=== PATIENT | male | born 1965 | race Caucasian/White ===

== ENCOUNTER → 2016-03-14 | Outpatient (CLI) | payer MEDICARE, OTHER ==
[2016-03-14 14:04] VITALS: BP 100/68; PULSE 59; RESP 14; TEMP 97.4; BMI 39.2
--- NOTE | 2016-03-14 16:40 | P.HPBAR ---
Bariatric H&P - History & Physicial H&P Date: 03/14/16 History & Physicial: Visit/CC: bariatric consult Patient initial contact: Initial weight: 122.924 kg Initial weight in pounds: 271.00 Height: 5 ft 9.75 in Initial BMI: 39.2 Last weight: Current weight: 122.924 kg Current weight in pounds: 271.00 Current BMI: 39.2 [place] body weight (based on NIH guidelines): 74.616 kg Excess body weight loss: 0.0% The patient is a 50 year-old M who presents for Bariatric Assessment. The patient presents today for sleeve gastrectomy consult. He has had lifetime problems obesity. His BMI is 39. The patient has been an information seminar and has a good understanding of the sleeve gastrectomy. 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 Last Myocardial Infarction Date:: 01-22-2011 History of Any Multi-Drug Resistant Organisms: None Reported Past Surgical History: Adenoidectomy, Cholecystectomy, Coronary Bypass/CABG, Heart Catheterization, Heart Catheterization With Stent, Hernia Repair Additional Past Surgical History / Comment(s): Several caths with last one done 07/02/14 treated medically, total 4 stents (states placed 01/2011), CABG 5 vessel in 2008 (stents came after open heart was done), EGD/colonoscopy, hemorrhoid banding, possible pain injections lower back-pt unsure. Past Anesthesia/Blood Transfusion Reactions: Previous Problems w/ Anesthesia Additional Past Anesthesia/Blood Transfusion Reaction / Comm: stated "wakes up slower than normal" Date of Last Stent Placement:: 01-22-2011 Past Psychological History: No Psychological Hx Reported Additional Psychological History / Comment(s): Pt states he has no current mental health disease. He states he had suicidal thoughts yrs ago at age 43, immediately following CABG in 2008 due to drastic lifestyle changes and being told he could no longer work. was admitted to psych but no longer has depression or thoughts of suicide sought counseling and is no longer having such thoughts. He resides with family. He is independent. 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 Smoking Status: Light tobacco smoker Past Alcohol Use History: Occasional Additional Past Alcohol Use History / Comment(s): started smoking age 15 never more than 1/2 ppd and later in life took up cigars (one per week at most). quit in oct 2012. may have a drink AND CIGAR once a week or less. Past Drug Use History: Marijuana Additional Drug Use History / Comment(s): as teenager into occ smoked marijuana NOW seldom - Past Family History Father Family Medical History: Coronary Artery Disease (CAD) Additional Family Medical History / Comment(s): dad is 75. stents, bypass, prostate and lung cancer. Mother Additional Family Medical History / Comment(s): mom 1997 at age 59- brain aneurysm Surgical - Exam Vital Signs Temp Pulse Resp BP 97.4 F L 59 L 14 100/68 03/14/16 13:55 03/14/16 13:55 03/14/16 13:55 03/14/16 13:55 - General well developed, no distress - Eyes PERRL - ENT normal pinna - Neck no masses - Respiratory normal expansion - Cardiovascular Rhythm: regular - Abdomen Abdomen: soft, non tender Bariatric Assessment & Plan Plan: Morbid obesity with severe companies. Patient wishes to undergo sleeve gastrectomy. Atelectasis patient regarding the risks and benefits of procedure he is aware the risk of gastric staple line disruption, bleeding, perforation. The patient will be scheduled for EGD. We will attempt authorizing for sleeve gastrectomy. Bariatric Checklist Checklist: Plan: Checklist: EGD: 1. Hiatal hernia: 2. H. Pylori: HgbA1c: Vitamin D: Smoking: Light tobacco smoker Primary care physician referral: beata Psychiatry clearance: Cardiology clearance: Sleep study: Diet journal: VTE risk score: VTE risk level: Rehab needs at discharge:
== END | disposition home or self-care (01) ==
LOC: BARWHC3 12:05
PROVIDERS: ATTEND Surgery
DX: Z01.818 Encounter for other preprocedural examination (principal); E66.01 Morbid (severe) obesity due to excess calories; Z68.39 Body mass index [BMI] 39.0-39.9, adult; F17.200 Nicotine dependence, unspecified, uncomplicated; F12.90 Cannabis use, unspecified, uncomplicated
CPT/HCPCS: 99201

== ENCOUNTER 2016-06-04 22:28 | Observation (INO) | payer MEDICARE, OTHER ==
[2016-06-04] MEDS ORDERED: ASPIRIN 81 MG CHEW PO STA (22:58)
[2016-06-04] MEDS ORDERED: NITROGLYCERIN SL TABS 0.4 MG TAB SUBLINGUAL STA ×3 (22:58)
--- NOTE | 2016-06-04 23:01 | ED ---
General Adult HPI - General Chief complaint: Chest Pain Stated complaint: Chest Pain/HX Heart Pt Time Seen by Provider: 06/04/16 22:40 Source: patient, RN notes reviewed Mode of arrival: wheelchair Limitations: no limitations - History of Present Illness Initial comments: Patient is a pleasant 50-year-old male presenting to the emergency department complaining of chest discomfort. Onset was an hour ago. Discomfort is currently 6/10. Discomfort is pressure with radiation to left shoulder. There is some associated dyspnea. Patient also has some nausea. No diaphoresis. Patient has had similar symptoms associated with previous heart attack. - Related Data Home Medications Medication Instructions Recorded Confirmed Atorvastatin [Lipitor] 80 mg PO HS 06/25/13 06/04/16 HYDROcodone/APAP 10-325MG [[place] 1 tab PO Q6H PRN 06/25/13 06/04/16 10-325] Metoprolol Tartrate [Lopressor] 50 mg PO BID 06/25/13 06/04/16 Nitroglycerin Sl Tabs [Nitrostat] 0.4 mg SUBLINGUAL Q5M PRN 06/25/13 06/04/16 Multivitamin [Men's Multi-Vitamin] 1 tab PO DAILY 09/23/13 06/04/16 Ranolazine [Ranexa] 1,000 mg PO BID 09/23/13 06/04/16 Pantoprazole Sodium [Protonix] 40 mg PO BID 07/02/14 06/04/16 Spironolactone [Aldactone] 25 mg PO DAILY 06/19/15 06/04/16 Isosorbide Mononitrate ER [Imdur] 120 mg PO BID 10/13/15 06/04/16 Aspirin [Adult Low Dose Aspirin EC] 81 mg PO HS 01/11/16 06/04/16 Enalapril [Vasotec] 20 mg PO BID 01/11/16 06/04/16 Allergies Allergy/AdvReac Type Severity Reaction Status Date / Time chocolate flavor Allergy Rash/Hives Verified 06/04/16 22:37 [place] And Derivatives Allergy Rash/Hives Verified 06/04/16 22:37 [[place]] Review of Systems ROS Statement: Those systems with pertinent positive or pertinent negative responses have been documented in the HPI. ROS Other: All systems not noted in ROS Statement are negative. Constitutional: Denies: fever Eyes: Denies: eye pain ENT: Denies: ear pain Respiratory: Reports: dyspnea. 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 Last Myocardial Infarction Date:: 01-22-2011 History of Any Multi-Drug Resistant Organisms: None Reported Past Surgical History: Adenoidectomy, Cholecystectomy, Coronary Bypass/CABG, Heart Catheterization, Heart Catheterization With Stent, Hernia Repair Additional Past Surgical History / Comment(s): Several caths with last one done 07/02/14 treated medically, total 4 stents (states placed 01/2011), CABG 5 vessel in 2008 (stents came after open heart was done), EGD/colonoscopy, hemorrhoid banding, possible pain injections lower back-pt unsure. Past Anesthesia/Blood Transfusion Reactions: Previous Problems w/ Anesthesia Additional Past Anesthesia/Blood Transfusion Reaction / Comment(s): stated "wakes up slower than normal" Date of Last Stent Placement:: 01-22-2011 Past Psychological History: No Psychological Hx Reported Additional Psychological History / Comment(s): Pt states he has no current mental health disease. He states he had suicidal thoughts yrs ago at age 43, immediately following CABG in 2008 due to drastic lifestyle changes and being told he could no longer work. was admitted to psych but no longer has depression or thoughts of suicide sought counseling and is no longer having such thoughts. He resides with family. He is independent. 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 Smoking Status: Former smoker Past Alcohol Use History: Occasional Additional Past Alcohol Use History / Comment(s): started smoking age 15 never more than 1/2 ppd and later in life took up cigars (one per week at most). quit in oct 2012. may have a drink AND CIGAR once a week or less. Past Drug Use History: Marijuana Additional Drug Use History / Comment(s): as teenager into 20's occ smoked marijuana NOW seldom - Past Family History Father Family Medical History: Coronary Artery Disease (CAD) Additional Family Medical History / Comment(s): dad is 75. stents, bypass, prostate and lung cancer. Mother Additional Family Medical History / Comment(s): mom 1997 at age 59- brain aneurysm General Exam Limitations: no limitations General appearance: alert, in no apparent distress Head exam: Present: atraumatic Eye exam: Present: normal appearance, PERRL ENT exam: Present: normal oropharynx Neck exam: Present: normal inspection Respiratory exam: Present: normal lung sounds bilaterally. Absent: chest wall tenderness Cardiovascular Exam: Present: regular rate, normal rhythm Expanded Peripheral pulses: 2+: Radial (R), Radial (L), Dorsalis Pedis (R), Dorsalis Pedis (L) GI/Abdominal exam: Present: soft. Absent: tenderness Extremities exam: Present: normal inspection. Absent: pedal edema, calf tenderness Neurological exam: Present: alert Psychiatric exam: Present: normal affect, normal mood Skin exam: Absent: rash Course Vital Signs 06/04/16 06/04/16 22:35 23:59 Temperature 97.9 F Pulse Rate 75 72 Respiratory 18 16 Rate Blood Pressure 120/71 109/62 O2 Sat by Pulse 98 97 Oximetry - Reevaluation(s) Reevaluation #1: 06/04/16 23:02 Case was discussed with Dr. Beard including EKG who is familiar with this patient. He does not feel patient needs to go to [facility] at this time. Previous EKG reviewed dated 01/11/2016. EKG Findings - EKG Comments: EKG Findings:: EKG shows normal sinus rhythm at 76. MS 174. QRS 76. QT 382. QTC 429. Normal axis. Inferior Q wave. ST elevation in lead III. Borderline ST elevation in aVF. Medical Decision Making - Medical Decision Making Patient reevaluated and resting comfortably in bed. Patient updated on results and plan. Case was also discussed in detail with Dr. Gaona, who will admit for Dr. Hernández. - Lab Data Result diagrams: 06/04/16 22:55 06/04/16 22:55 Lab Results 06/04/16 06/04/16 06/04/16 Range/Units 22:55 22:55 22:55 WBC 7.0 (3.8-10.6) k/uL RBC 4.34 (4.30-5.90) m/uL Hgb 11.7 L (13.0-17.5) gm/dL Hct 36.1 L (39.0-53.0) % MCV 83.1 (80.0-100.0) fL MCH 27.0 (25.0-35.0) pg MCHC 32.4 (31.0-37.0) g/dL RDW 15.0 (11.5-15.5) % Plt Count 283 (150-450) k/uL Neutrophils % 57 % Lymphocytes % 33 % Monocytes % 5 % Eosinophils % 1 % Basophils % 0 % Neutrophils # 4.0 (1.3-7.7) k/uL Lymphocytes # 2.3 (1.0-4.8) k/uL Monocytes # 0.4 (0-1.0) k/uL Eosinophils # 0.1 (0-0.7) k/uL Basophils # 0.0 (0-0.2) k/uL Hypochromasia Slight PT (9.0-12.0) sec INR (<1.1) APTT (22.0-30.0) sec Sodium 137 (137-145) mmol/L Potassium 4.5 (3.5-5.1) mmol/L Chloride 108 H (98-107) mmol/L Carbon Dioxide 20 L (22-30) mmol/L Anion Gap 9 mmol/L BUN 20 (9-20) mg/dL Creatinine 1.50 H (0.66-1.25) mg/dL Est GFR (MDRD) Af Amer >60 (>60 ml/min/1.73 sqM) Est GFR (MDRD) Non-Af 50 (>60 ml/min/1.73 sqM) Glucose 129 H (74-99) mg/dL Calcium 9.2 (8.4-10.2) mg/dL Magnesium 1.8 (1.6-2.3) mg/dL Total Bilirubin 0.5 (0.2-1.3) mg/dL AST 19 (17-59) U/L ALT 36 (21-72) U/L Alkaline Phosphatase 64 (38-126) U/L Total Creatine Kinase 47 L (55-170) U/L CK-MB (CK-2) 0.8 (0.0-2.4) ng/mL CK-MB (CK-2) Rel Index 1.7 Troponin I <0.012 (0.000-0.034) ng/mL Total Protein 6.6 (6.3-8.2) g/dL Albumin 3.7 (3.5-5.0) g/dL 06/04/16 Range/Units 22:55 WBC (3.8-10.6) k/uL RBC (4.30-5.90) m/uL Hgb (13.0-17.5) gm/dL Hct (39.0-53.0) % MCV (80.0-100.0) fL MCH (25.0-35.0) pg MCHC (31.0-37.0) g/dL RDW (11.5-15.5) % Plt Count (150-450) k/uL Neutrophils % % Lymphocytes % % Monocytes % % Eosinophils % % Basophils % % Neutrophils # (1.3-7.7) k/uL Lymphocytes # (1.0-4.8) k/uL Monocytes # (0-1.0) k/uL Eosinophils # (0-0.7) k/uL Basophils # (0-0.2) k/uL Hypochromasia PT 10.7 (9.0-12.0) sec INR 1.1 (<1.1) APTT 22.0 (22.0-30.0) sec Sodium (137-145) mmol/L Potassium (3.5-5.1) mmol/L Chloride (98-107) mmol/L Carbon Dioxide (22-30) mmol/L Anion Gap mmol/L BUN (9-20) mg/dL Creatinine (0.66-1.25) mg/dL Est GFR (MDRD) Af Amer (>60 ml/min/1.73 sqM) Est GFR (MDRD) Non-Af (>60 ml/min/1.73 sqM) Glucose (74-99) mg/dL Calcium (8.4-10.2) mg/dL Magnesium (1.6-2.3) mg/dL Total Bilirubin (0.2-1.3) mg/dL AST (17-59) U/L ALT (21-72) U/L Alkaline Phosphatase (38-126) U/L Total Creatine Kinase (55-170) U/L CK-MB (CK-2) (0.0-2.4) ng/mL CK-MB (CK-2) Rel Index Troponin I (0.000-0.034) ng/mL Total Protein (6.3-8.2) g/dL Albumin (3.5-5.0) g/dL - Radiology Data Radiology results: image reviewed (Chest x-ray shows no acute process) Critical Care Time Critical Care Time: Yes Total Critical Care Time: 31 Disposition Clinical Impression: Unstable angina pectoris Disposition: ADMITTED IP TO THIS HOSP
[2016-06-04 23:09] LABS: Basophils % (A) 0 %; CH 26.9; CHCM 32.4; Eosinophils # (A) 0.1 k/uL (0-0.7); Eosinophils % (A) 1 %; HCT 36.1 % (39.0-53.0); HDW 3.11; HGB 11.7 gm/dL (13.0-17.5); Hypochromasia Slight; Luc # (Auto) 0.17; Luc % (Auto) 3; Lymphocytes # (A) 2.3 k/uL (1.0-4.8); Lymphocytes % (A) 33 %; MCHC 32.4 g/dL (31.0-37.0); MCV 83.1 fL (80.0-100.0); Mean Platelet Volume 6.4; Monocytes # (A) 0.4 k/uL (0-1.0); Monocytes % (A) 5 %; Neutrophils % (A) 57 %; RBC 4.34 m/uL (4.30-5.90); WBC (Perox) 6.66
[2016-06-04 23:20] LABS: INR 1.1 (<1.1); Prothrombin Time 10.7 sec (9.0-12.0)
[2016-06-04 23:21] LABS: ALT 36 U/L (21-72); AST 19 U/L (17-59); Alkaline Phosphatase 64 U/L (38-126); Anion Gap 9 mmol/L; Blood Urea Nitrogen 20 mg/dL (9-20); Calcium 9.2 mg/dL (8.4-10.2); Carbon Dioxide 20 mmol/L (22-30); Chloride 108 mmol/L (98-107); Glucose 129 mg/dL (74-99); Magnesium 1.8 mg/dL (1.6-2.3); Non-African American GFR(MDRD) 50 (>60 ml/min/1.73 sqM); Potassium 4.5 mmol/L (3.5-5.1); Sodium 137 mmol/L (137-145); Total Bilirubin 0.5 mg/dL (0.2-1.3); Total Protein 6.6 g/dL (6.3-8.2)
--- NOTE | 2016-06-04 23:28 | XR ---
EXAM: XR Chest, 1 View CLINICAL HISTORY: Reason: chest pain TECHNIQUE: Frontal view of the chest. COMPARISON: 12/22/15 two-view chest FINDINGS: Lungs: Now more shallow inspiratory effort with mild vascular crowding at the lung bases. No superimposed infiltrate. Pleural space: Unremarkable. No pneumothorax. Heart: Heart size is stable allowing for portable AP technique and lower lung volumes. Left-sided coronary artery calcification and/or stent noted. Mediastinum: Mediastinal contours are stable allowing for portable AP technique and lower lung volumes. Bones/joints: Prior median sternotomy. IMPRESSION: Slightly diminished lung volumes without new superimposed acute process is seen, as above.
[2016-06-04 23:35] LABS: Creatine Kinase 47 U/L (55-170)
[2016-06-04 23:48] LABS: Creatine Kinase MB 0.8 ng/mL (0.0-2.4); Troponin I <0.012 ng/mL (0.000-0.034)
[2016-06-05] MEDS ORDERED: HEPARIN SODIUM,PORCINE/D5W PMX 25,000 UNIT in DEXTROSE/WATER 1 500ML.BAG IV SCH (00:15)
[2016-06-05] MEDS ORDERED: HEPARIN SODIUM,PORCINE 5,000 UNIT/ML 1 ML VIAL IV PRN (00:15)
[2016-06-05] MEDS ORDERED: HEPARIN SODIUM,PORCINE 5,000 UNIT/ML 1 ML VIAL IV ONE (00:15)
[2016-06-05] MEDS ORDERED: NITROGLYCERIN SL TABS 0.4 MG TAB SUBLINGUAL PRN ×2 (00:15→14:50)
[2016-06-05 02:05] VITALS: BMI 38.5
[2016-06-05 06:12] LABS: Creatine Kinase 36 U/L (55-170)
[2016-06-05 06:25] LABS: Creatine Kinase MB 0.7 ng/mL (0.0-2.4); Troponin I <0.012 ng/mL (0.000-0.034)
[2016-06-05] MEDS ORDERED: AMINOPHYLLINE 500 MG/20 ML VIAL IV PRN (09:57)
--- NOTE | 2016-06-05 09:57 | P.CRDCN ---
History of Present Illness Consult date: 06/05/16 Chief complaint: chest pain History of present illness: this is a pleasant 50-year-old gentleman who sees Dr. Vera as an outpatient with a past medical history significant for coronary artery disease, hypertension, dyslipidemia, and obesity, presented to the hospital complaining of chest discomfort. He was in his usual state of health until last night when he was going to bed and started experiencing chest discomfort, described it as a sharp kind of discomfort, in the mid of the chest, with some radiation to the left shoulder, without any associated symptoms of shortness of breath, dizziness or lightheadedness or syncope. The EKG showed sinus rhythm with nonspecific changes in the inferior leads seems to be the same as before. The cardiac enzymes were checked and came in to be unremarkable. The patient underwent a stress test in August 2015 and that showed no evidence of ischemia noted. The last heart catheterization was performed in June2014 by Dr. Vera and that showed patent left anterior descending artery with atrophic HOPKINS to LAD and patent SVG to OM and first and second diagonal. The right coronary artery was chronically occluded and was unprotected. Maximize medical treatment was recommended at that point. I am going to DC the heparin. Then 2 obtain a stress test tomorrow morning. 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 Last Myocardial Infarction Date:: 01-22-2011 History of Any Multi-Drug Resistant Organisms: None Reported Past Surgical History: Adenoidectomy, Cholecystectomy, Coronary Bypass/CABG, Heart Catheterization, Heart Catheterization With Stent, Hernia Repair Additional Past Surgical History / Comment(s): Several caths with last one done 07/02/14 treated medically, total 4 stents (states placed 01/2011), CABG 5 vessel in 2008 (stents came after open heart was done), EGD/colonoscopy, hemorrhoid banding, possible pain injections lower back-pt unsure. Past Anesthesia/Blood Transfusion Reactions: Previous Problems w/ Anesthesia Additional Past Anesthesia/Blood Transfusion Reaction / Comment(s): stated "wakes up slower than normal" Date of Last Stent Placement:: 01-22-2011 Past Psychological History: No Psychological Hx Reported Additional Psychological History / Comment(s): Pt states he has no current mental health disease. He states he had suicidal thoughts yrs ago at age 43, immediately following CABG in 2008 due to drastic lifestyle changes and being told he could no longer work. was admitted to psych but no longer has depression or thoughts of suicide sought counseling and is no longer having such thoughts. He resides with family. He is independent. 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 Smoking Status: Former smoker Past Alcohol Use History: Occasional Additional Past Alcohol Use History / Comment(s): started smoking age 15 never more than 1/2 ppd and later in life took up cigars (one per week at most). quit in oct 2012. may have a drink AND CIGAR once a week or less. Past Drug Use History: Marijuana Additional Drug Use History / Comment(s): as teenager into occ smoked marijuana NOW seldom - Past Family History Father Family Medical History: Coronary Artery Disease (CAD) Additional Family Medical History / Comment(s): dad is 75. stents, bypass, prostate and lung cancer. Mother Additional Family Medical History / Comment(s): mom 1997 at age 59- brain aneurysm Medications and Allergies Home Medications Medication Instructions Recorded Confirmed Type Atorvastatin [Lipitor] 80 mg PO HS 06/25/13 06/05/16 History HYDROcodone/APAP 10-325MG [[place] 1 tab PO Q6H PRN 06/25/13 06/05/16 History 10-325] Metoprolol Tartrate [Lopressor] 50 mg PO BID 06/25/13 06/05/16 History Nitroglycerin Sl Tabs [Nitrostat] 0.4 mg SUBLINGUAL Q5M PRN 06/25/13 06/05/16 History Multivitamin [Men's Multi-Vitamin] 1 tab PO DAILY 09/23/13 06/05/16 History Ranolazine [Ranexa] 1,000 mg PO BID 09/23/13 06/05/16 History Pantoprazole Sodium [Protonix] 40 mg PO DAILY 07/02/14 06/05/16 History Spironolactone [Aldactone] 25 mg PO DAILY 06/19/15 06/05/16 History Isosorbide Mononitrate ER [Imdur] 120 mg PO BID 10/13/15 06/05/16 History Aspirin [Adult Low Dose Aspirin EC] 81 mg PO HS 01/11/16 06/05/16 History Enalapril [Vasotec] 20 mg PO BID 01/11/16 06/05/16 History Allergies Allergy/AdvReac Type Severity Reaction Status Date / Time chocolate flavor Allergy Rash/Hives Verified 06/04/16 22:37 [place] And Derivatives Allergy Rash/Hives Verified 06/04/16 22:37 [[place]] Physical Exam Vitals: Vital Signs Temp Pulse Pulse Resp BP BP BP 06/05/16 08:50 97.6 F 73 16 107/56 06/05/16 04:00 98.0 F 68 17 108/62 06/05/16 01:13 97.9 F 67 18 110/60 111/62 06/05/16 00:54 62 16 102/62 Pulse Ox 06/05/16 08:50 95 06/05/16 04:00 97 06/05/16 01:13 98 06/05/16 00:54 98 Intake and Output 06/04/16 06/05/16 06/05/16 22:59 06:59 14:59 Intake Total 560 355.744 Balance 560 355.744 Intake: Intake, IV Titration 80 155.744 Amount Heparin Sodium,Porcine/ 80 155.744 D5w Pmx 25,000 unit In Dextrose/Water 1 500ml. bag @ 7.88 UNITS/KG/HR 20 .01 mls/hr IV .Q24H [facility] Rx#:[id number] Oral 480 200 Other: Voiding Method Toilet Toilet # Voids 2 Weight 125.2 kg - Constitutional General appearance: no acute distress - Respiratory Respiratory: bilateral: CTA - Cardiovascular Rhythm: regular Heart sounds: normal: S1, S2 Results 06/05/16 05:39 06/04/16 22:55 Cardiac Enzymes 06/05/16 Range/Units 05:39 CK-MB (CK-2) 0.7 (0.0-2.4) ng/mL Troponin I <0.012 (0.000-0.034) ng/mL Coagulation 06/05/16 Range/Units 05:39 APTT 37.4 H (22.0-30.0) sec CBC 06/05/16 Range/Units 05:39 Plt Count 238 (150-450) k/uL Current Medications Generic Name Dose Route Start Last Admin Trade Name Kaylen PRN Reason Stop Dose Admin Aspirin 325 mg 06/06/16 09:00 Aspirin PO DAILY [facility] Heparin Sodium (Porcine) 0 unit 06/05/16 00:15 06/05/16 08:40 Heparin IV 4,000 unit Q6HR PRN Administration Low PTT Protocol Heparin Sodium/Dextrose 25,000 500 mls @ 20.01 mls/hr 06/05/16 00:15 08:37 unit/ IV Solution IV 10.9 units/kg/hr .Q24H EDWARD[facility] 27.68 mls/hr Protocol Titration 7.88 UNITS/KG/HR Nitroglycerin 0.4 mg 06/05/16 00:15 Nitrostat SUBLINGUAL Q5M PRN Chest Pain Intake and Output 06/04/16 06/05/16 06/05/16 22:59 06:59 14:59 Intake Total 560 355.744 Balance 560 355.744 Intake: Intake, IV Titration 80 155.744 Amount Heparin Sodium,Porcine/ 80 155.744 D5w Pmx 25,000 unit In Dextrose/Water 1 500ml. bag @ 7.88 UNITS/KG/HR 20 .01 mls/hr IV .Q24H [facility] Rx#:[id number] Oral 480 200 Other: Voiding Method Toilet Toilet # Voids 2 Weight 125.2 kg 06/05/16 05:39 Assessment and Plan Plan: assessment Atypical chest discomfort Known CAD and prior revascularization as described above Mild chronic kidney disease Hypertension Dyslipidemia Plan The patient was ruled out for acute coronary event Proceed with a stress test tomorrow morning
[2016-06-05 12:42] LABS: Creatine Kinase 35 U/L (55-170)
[2016-06-05 12:56] LABS: Creatine Kinase MB 0.7 ng/mL (0.0-2.4); Troponin I <0.012 ng/mL (0.000-0.034)
[2016-06-05] MEDS ORDERED: HYDROcodone/APAP 10-325MG 1 EACH TAB PO PRN (14:50)
--- NOTE | 2016-06-05 15:31 | P.HPIM ---
History of Present Illness H&P Date: 06/05/16 Chief Complaint: Chest pain his is a 50-year-old gentleman patient of Dr. Edgar Vera. He has underlying history of CAD, CABG, previous CVA involving the occipital lobe, chronic tobacco use and cigar use, moderate alcohol consumption. His cardiac history are as follows:coronary artery disease multiple procedure including bypass grafting 2008 which is HOPKINS to the LAD and saphenous vein graft to the diagonal 1 saphenous vein graft to the diagonal 2 and saphenous vein graft to the obtuse marginal and right coronary artery. Patient also had heart cath with multiple angioplasty in the last a few years his last heart cath was in June 2014 which revealed patent saphenous vein graft to the obtuse marginal diagonal 1 and diagonal 2 patent LAD free of any atherosclerotic disease with atrophic HOPKINS to the LAD and patent saphenous vein graft to the obtuse marginal . negative stress test in August 2015, echocardiogram at that time showed ejection fraction of 50-55% inferoseptal LV wall motion hypokinesia mild aortic valve sclerosis without stenosis, no aortic regurgitation, mild MR and mild TR no pulmonary hypertension aortic root is normal no pericardial effusion at that time he presented to the emergency room secondary to acute chest pain which happened at nighttime, patient was in bed resting he had substernal chest pain sharp radiating to the left shoulder starting 913 in the evening until his ER presentation. Patient mentioned that he had a rough week the week as he had moved out of his current house and has been lifting lots of household items during this move. Patient denies any trauma no pleurisy no chest contusion no cough no fever no chills In the emergency room he had an abnormal EKG presenting with T wave elevation inferior leads, his troponins are negative 3 is scheduled for a stress test Monday morning and heparin was started and was discontinued after seen in consultation by cardiology Review of Systems Constitutional: Reports anorexia Ears, nose, mouth and throat: Reports as per HPI, Denies ant. neck pain, Denies bleeding gums, Denies dental pain, Denies dysphagia, Denies epistaxis, Denies headache, Denies hoarseness, Denies mouth pain, Denies nasal congestion, Denies nasal discharge, Denies neck fullness/pressure, Denies neck lump, Denies nose pain, Denies odynophagia, Denies post-nasal drip, Denies sinus pain, Denies sinus pressure, Denies swelling in mouth, Denies swelling in throat, Denies sore throat, Denies vertigo, Denies voice changes Cardiovascular: Reports as per HPI, Reports chest pain, Denies claudication, Denies decreased exercise tolerance, Denies dyspnea on exertion, Denies edema, Denies high blood pressure, Denies irregular heart beat, Denies leg edema, Denies lightheadedness, Denies orthopnea, Denies palpitations, Denies paroxysmal nocturnal dyspnea, Denies phlebitis, Denies rapid heart beat, Denies shortness of breath, Denies syncope Respiratory: Reports as per HPI, Denies congestion, Denies cough, Denies cough with sputum, Denies dyspnea, Denies excessive sputum, Denies hemoptysis, Denies home oxygen, Denies pain, Denies pain on inspiration, Denies pleurisy, Denies respiratory infections, Denies sleep apnea, Denies snoring, Denies wheezing Gastrointestinal: Reports as per HPI, Denies abdominal pain, Denies belching, Denies bloating, Denies BRBPR, Denies change in bowel habits, Denies coffee ground emesis, Denies constipation, Denies diarrhea, Denies dyspepsia, Denies early satiety, Denies excessive gas, Denies heartburn, Denies hematemesis, Denies hematochezia, Denies indigestion, Denies jaundice, Denies lactose intolerance, Denies loss of appetite, Denies melena, Denies nausea, Denies vomiting Genitourinary: Reports as per HPI, Denies decreased libido, Denies difficulties fathering child, Denies discharge, Denies dysuria, Denies erectile dysfunction, Denies flank pain, Denies genital pain, Denies genital sores, Denies hematuria, Denies impotence, Denies incontinence, Denies kidney stones, Denies nocturia, Denies polyuria, Denies testicular lump, Denies testicular pain, Denies urinary frequency, Denies urinary hesitancy, Denies urinary retention Musculoskeletal: Reports as per HPI, Denies arm numbness/tingling, Denies atrophy, Denies fractures, Denies frequent falls, Denies gait dysfunction, Denies hot joints, Denies leg numbness/tingling, Denies limitation of motion, Denies loss of height, Denies low back pain, Denies morning stiffness, Denies muscle cramps, Denies muscle weakness, Denies myalgias, Denies neck pain, Denies neck stiffness, Denies prior amputations, Denies redness of joints, Denies shooting arm pain, Denies shooting leg pain Integumentary: Reports as per HPI, Denies acne, Denies boils, Denies brittle nails, Denies change in hair/nails, Denies color changes, Denies darkening of skin, Denies depigmentation, Denies dryness, Denies foot/leg ulcers, Denies growths, Denies hirsutism, Denies lesions, Denies onychomycosis, Denies pruritus , Denies rash, Denies sores, Denies striae, Denies unusual bruising, Denies wounds Neurological: Reports as per HPI, Denies aphasia, Denies ataxia, Denies balance difficulties, Denies burning pain, Denies change in mentation, Denies change in smell/taste, Denies change in speech, Denies confusion, Denies convulsions, Denies double vision, Denies gait dysfunction, Denies head injury, Denies headaches, Denies hearing difficulties, Denies lack of coordination, Denies loss of vision, Denies memory loss, Denies migraines, Denies motor disturbance, Denies numbness, Denies paralysis, Denies paresthesias, Denies seizures, Denies sensory deficit, Denies spasticity, Denies syncope, Denies tic, Denies tingling , Denies transient paralysis, Denies tremors, Denies vertigo, Denies weakness, Denies visual changes Psychiatric: Reports as per HPI, Denies anhedonia, Denies anxiety, Denies anxiety attacks, Denies change in appetite, Denies change in libido, Denies change in sleep habits, Denies confusion, Denies depression, Denies difficulty concentrating, Denies disorientation, Denies hallucinations, Denies hopelessness , Denies hypersomnia, Denies insomnia, Denies irritability, Denies memory loss, Denies mood swings, Denies paranoia, Denies sadness/tearfulness, Denies sleep disturbances, Denies suicidal ideation Endocrine: Reports as per HPI Hematologic/Lymphatic: Reports as per HPI, Denies easy bleeding, Denies easy bruising, Denies lymphadenopathy, Denies lymphedema, Denies thrombophilia Allergic/Immunologic: Reports as per HPI Past Medical History Past Medical History: Coronary Artery Disease (CAD), Chest Pain / Angina, CVA/ TIA, GI Bleed, Hyperlipidemia, Hypertension, Myocardial Infarction (NM), Pneumonia, Renal Disease Additional Past Medical History / Comment(s): 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 Last Myocardial Infarction Date:: 01-22-2011 History of Any Multi-Drug Resistant Organisms: None Reported Past Surgical History: Adenoidectomy, Cholecystectomy, Coronary Bypass/CABG, Heart Catheterization, Heart Catheterization With Stent, Hernia Repair Additional Past Surgical History / Comment(s): Several caths with last one done 07/02/14 treated medically, total 4 stents (states placed 01/2011), CABG 5 vessel in 2008 (stents came after open heart was done), EGD/colonoscopy, hemorrhoid banding, possible pain injections lower back-pt unsure. Past Anesthesia/Blood Transfusion Reactions: Previous Problems w/ Anesthesia Additional Past Anesthesia/Blood Transfusion Reaction / Comment(s): stated "wakes up slower than normal" Date of Last Stent Placement:: 01-22-2011 Past Psychological History: No Psychological Hx Reported Additional Psychological History / Comment(s): Pt states he has no current mental health disease. He states he had suicidal thoughts yrs ago at age 43, immediately following CABG in 2008 due to drastic lifestyle changes and being told he could no longer work. was admitted to psych but no longer has depression or thoughts of suicide sought counseling and is no longer having such thoughts. He resides with family. He is independent. 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 Smoking Status: Former smoker Past Alcohol Use History: Occasional Additional Past Alcohol Use History / Comment(s): started smoking age 15 never more than 1/2 ppd and later in life took up cigars (one per week at most). quit in oct 2012. may have a drink AND CIGAR once a week or less. Past Drug Use History: Marijuana Additional Drug Use History / Comment(s): as teenager into occ smoked marijuana NOW seldom - Past Family History Father Family Medical History: Coronary Artery Disease (CAD) Additional Family Medical History / Comment(s): dad is 75. stents, bypass, prostate and lung cancer. Mother Additional Family Medical History / Comment(s): mom 1997 at age 59- brain aneurysm Medications and Allergies Home Medications Medication Instructions Recorded Confirmed Type Atorvastatin [Lipitor] 80 mg PO HS 06/25/13 06/05/16 History HYDROcodone/APAP 10-325MG [[place] 1 tab PO Q6H PRN 06/25/13 06/05/16 History 10-325] Metoprolol Tartrate [Lopressor] 50 mg PO BID 06/25/13 06/05/16 History Nitroglycerin Sl Tabs [Nitrostat] 0.4 mg SUBLINGUAL Q5M PRN 06/25/13 06/05/16 History Multivitamin [Men's Multi-Vitamin] 1 tab PO DAILY 09/23/13 06/05/16 History Ranolazine [Ranexa] 1,000 mg PO BID 09/23/13 06/05/16 History Pantoprazole Sodium [Protonix] 40 mg PO DAILY 07/02/14 06/05/16 History Spironolactone [Aldactone] 25 mg PO DAILY 06/19/15 06/05/16 History Isosorbide Mononitrate ER [Imdur] 120 mg PO BID 10/13/15 06/05/16 History Aspirin [Adult Low Dose Aspirin EC] 81 mg PO HS 01/11/16 06/05/16 History Enalapril [Vasotec] 20 mg PO BID 01/11/16 06/05/16 History Allergies Allergy/AdvReac Type Severity Reaction Status Date / Time chocolate flavor Allergy Rash/Hives Verified 06/04/16 22:37 [place] And Derivatives Allergy Rash/Hives Verified 06/04/16 22:37 [[place]] Physical Exam Vitals: Vital Signs Temp Pulse Pulse Resp BP BP BP 06/05/16 08:50 97.6 F 73 16 107/56 06/05/16 04:00 98.0 F 68 17 108/62 06/05/16 01:13 97.9 F 67 18 110/60 111/62 06/05/16 00:54 62 16 102/62 Pulse Ox 06/05/16 08:50 95 06/05/16 04:00 97 06/05/16 01:13 98 06/05/16 00:54 98 Intake and Output 06/04/16 06/05/16 06/05/16 22:59 06:59 14:59 Intake Total 560 355.744 Balance 560 355.744 Intake: Intake, IV Titration 80 155.744 Amount Heparin Sodium,Porcine/ 80 155.744 D5w Pmx 25,000 unit In Dextrose/Water 1 500ml. bag @ 7.88 UNITS/KG/HR 20 .01 mls/hr IV .Q24H EDWARDO Rx#:[id number] Oral 480 200 Other: Voiding Method Toilet Toilet # Voids 2 Weight 125.2 kg - Constitutional General appearance: no average body habitus, cooperative, no disheveled, no mild distress, no morbidly obese, no acute distress, obese, no severe distress, no thin - EENT Eyes: no abnormal pupil, anicteric sclerae, no disc margins sharp, no edentulous , EOMI, PERRLA, no fundus normal, no photophobia, dentition normal, no poor dentition, no ptosis, no scleral icterus, normal appearance ENT: no hard of hearing, hearing grossly normal, NA/AT, normal oropharynx, no other, no pharyngeal erythema, no thrush, no tonsillar exudates, no tonsillar swelling - Neck Neck: no lymphadenopathy, normal ROM, no other, no rigidity, no stridor, no thyromegaly - Respiratory Respiratory: bilateral: CTA, negative: diminished, dullness, rales, rhonchi - Cardiovascular Rhythm: regular Heart sounds: normal: S1, S2 Abnormal Heart Sounds: no systolic murmur, no diastolic murmur, no rub, no S3 Gallop, no S4 Gallop, no click, no other - Gastrointestinal General gastrointestinal: normal bowel sounds, soft - Integumentary Integumentary: normal, normal turgor - Neurologic Neurologic: CNII-XII intact - Musculoskeletal Musculoskeletal: gait normal, strength equal bilaterally - Psychiatric Psychiatric: A&O x's 3, appropriate affect, intact judgment & insight Results CBC & Chem 7: 06/05/16 05:39 06/04/16 22:55 Labs: Abnormal Lab Results - Last 24 Hours (Table) 06/05/16 06/05/16 Range/Units 05:39 05:39 APTT 37.4 H (22.0-30.0) sec Total Creatine Kinase 36 L (55-170) U/L Laboratory Results WBC 7.0 k/uL (3.8-10.6) 06/04/16 22:55 RBC 4.34 m/uL (4.30-5.90) 06/04/16 22:55 Hgb 11.7 gm/dL (13.0-17.5) L 06/04/16 22:55 Hct 36.1 % (39.0-53.0) L 06/04/16 22:55 MCV 83.1 fL (80.0-100.0) 06/04/16 22:55 MCH 27.0 pg (25.0-35.0) 06/04/16 22:55 MCHC 32.4 g/dL (31.0-37.0) 06/04/16 22:55 RDW 15.0 % (11.5-15.5) 06/04/16 22:55 Plt Count 238 k/uL (150-450) 06/05/16 05:39 Neutrophils % 57 % 06/04/16 22:55 Lymphocytes % 33 % 06/04/16 22:55 Monocytes % 5 % 06/04/16 22:55 Eosinophils % 1 % 06/04/16 22:55 Basophils % 0 % 06/04/16 22:55 Neutrophils # 4.0 k/uL (1.3-7.7) 06/04/16 22:55 Lymphocytes # 2.3 k/uL (1.0-4.8) 06/04/16 22:55 Monocytes # 0.4 k/uL (0-1.0) 06/04/16 22:55 Eosinophils # 0.1 k/uL (0-0.7) 06/04/16 22:55 Basophils # 0.0 k/uL (0-0.2) 06/04/16 22:55 Hypochromasia Slight 06/04/16 22:55 PT 10.7 sec (9.0-12.0) 06/04/16 22:55 INR 1.1 (<1.1) 06/04/16 22:55 APTT 37.4 sec (22.0-30.0) H 06/05/16 05:39 Sodium 137 mmol/L (137-145) 06/04/16 22:55 Potassium 4.5 mmol/L (3.5-5.1) 06/04/16 22:55 Chloride 108 mmol/L (98-107) H 06/04/16 22:55 Carbon Dioxide 20 mmol/L (22-30) L 06/04/16 22:55 Anion Gap 9 mmol/L 06/04/16 22:55 BUN 20 mg/dL (9-20) 06/04/16 22:55 Creatinine 1.50 mg/dL (0.66-1.25) H 06/04/16 22:55 Est GFR (MDRD) Af Amer >60 (>60 ml/min/1.73 sqM) 06/04/16 22:55 Est GFR (MDRD) Non-Af 50 (>60 ml/min/1.73 sqM) 06/04/16 22:55 Glucose 129 mg/dL (74-99) H 06/04/16 22:55 Calcium 9.2 mg/dL (8.4-10.2) 06/04/16 22:55 Magnesium 1.8 mg/dL (1.6-2.3) 06/04/16 22:55 Total Bilirubin 0.5 mg/dL (0.2-1.3) 06/04/16 22:55 AST 19 U/L (17-59) 06/04/16 22:55 ALT 36 U/L (21-72) 06/04/16 22:55 Alkaline Phosphatase 64 U/L (38-126) 06/04/16 22:55 Total Creatine Kinase 35 U/L (55-170) L 06/05/16 11:44 CK-MB (CK-2) 0.7 ng/mL (0.0-2.4) 06/05/16 11:44 CK-MB (CK-2) Rel Index 2.0 06/05/16 11:44 Troponin I <0.012 ng/mL (0.000-0.034) 06/05/16 11:44 Total Protein 6.6 g/dL (6.3-8.2) 06/04/16 22:55 Albumin 3.7 g/dL (3.5-5.0) 06/04/16 22:55 Thrombosis Risk Factor Assmnt - DVT/VTE Prophylaxis DVT/VTE Prophylaxis: Pharmacologic Prophylaxis ordered - Choose All That Apply Each Factor Represents 1 point: Age 41-60 years, Obesity (BMI >25) Each Risk Factor Represents 2 Points: Major surgery Other congenital or acquired thrombophilia - If yes, enter type in comment: No Thrombosis Risk Factor Assessment Total Risk Factor Score: 4 Thrombosis Risk Factor Assessment Level: Moderate Risk Assessment and Plan Plan: 1. 1 chest pain: Atypical, however in view of his underlying extensive coronary artery disease, cardiac workup again is requested, his last stress test was in August 2015 that shows no evidence of ischemia, patient was scheduled to have cardiac stress test in the morning. His last heart cath was in June [address] Vera that showed patent LAD artery with atrophic HOPKINS to the LAD patent S BG to OM and first and second diagonal branch RCA is chronically occluded . EKG was abnormal with ST elevation 3 and aVF whenever Troponins were negative. 3. 2 COPD without exacerbation currently cigar smoking 1 or 2 times every other week which he is advised to quit smoking permanently, will use albuterol when necessary 3. CK D stage III, nephrotoxins will be avoided, hypotension would be avoided, labs will be monitored 3 cardiomyopathy: With multiple coronary artery disease, he is currently on Ranexa Aldactone Imdur. enalapril will be decreased to 10 mg twice a day secondary to low BPs during these current hospital stay. Patient is asymptomatic with the systolic blood pressure of 100 4 hypertension: Well controlled on metoprolol 50 mg twice a day and enalapril 20 mg twice a day metoprolol 50 mg twice a day, spironolactone 25 mg daily 5 hyperlipidemia: On atorvastatin 80 mg daily. 6 recurrent gastritis and GERD: Patient is on a tenants Protonix 40 mg daily. 7 arrhythmia: Has been doing much better on metoprolol 50 mg twice a day. 8 recurrent history of angina Has been on Ranexa 1000 mg twice a day i and spironolactone. 9 chronic tobacco use patient was counseled regarding ill effects of tobacco to include irreversible damage caused by CVA carcinogenic mutations to genes besides cardiopulmonary destructive damages caused by smoking GI prophylaxis: Has been on Protonix continue medication.
[2016-06-05] MEDS ORDERED: ALBUTEROL NEBULIZED 2.5 MG/3 ML INHALATION PRN (15:32)
[2016-06-05] MEDS: LISINOPRIL 20 MG TAB PO SCH (20:04)
[2016-06-05] MEDS: RANOLAZINE 500 MG TAB.ER.12H PO SCH (20:04)
[2016-06-05] MEDS: ISOSORBIDE MONONITRATE ER 60 MG TAB.ER.24H PO SCH (20:04)
[2016-06-05] MEDS: METOPROLOL TARTRATE 50 MG TAB PO SCH (20:04)
[2016-06-05] MEDS ORDERED: ATORVASTATIN 80 MG TAB PO SCH (21:00)
[2016-06-05] MEDS ORDERED: ASPIRIN 325 MG TAB PO SCH (21:00)
[2016-06-06] MEDS ORDERED: AMINOPHYLLINE 500 MG/20 ML VIAL IV PRN (05:00)
[2016-06-06] MEDS ORDERED: REGADENOSON 0.4 MG/5 ML SYRINGE IV ONE (05:00)
[2016-06-06] MEDS ORDERED: PANTOPRAZOLE 40 MG TABLET PO SCH (07:30)
[2016-06-06 07:58] LABS: Basophils % (A) 0 %; CH 26.6; CHCM 31.6; Eosinophils # (A) 0.1 k/uL (0-0.7); Eosinophils % (A) 1 %; Hypochromasia Slight; Luc # (Auto) 0.15; Luc % (Auto) 3; Lymphocytes # (A) 2.1 k/uL (1.0-4.8); Lymphocytes % (A) 37 %; MCH 27.3 pg (25.0-35.0); MCHC 32.4 g/dL (31.0-37.0); MCV 84.4 fL (80.0-100.0); Mean Platelet Volume 6.5; Monocytes # (A) 0.3 k/uL (0-1.0); Monocytes % (A) 5 %; Neutrophils # (A) 3.1 k/uL (1.3-7.7); Neutrophils % (A) 54 %; RBC 4.03 m/uL (4.30-5.90); RDW 15.2 % (11.5-15.5); WBC 5.6 k/uL (3.8-10.6); WBC (Perox) 5.35
[2016-06-06 08:15] LABS: Anion Gap 9 mmol/L; Blood Urea Nitrogen 21 mg/dL (9-20); Calcium 8.8 mg/dL (8.4-10.2); Carbon Dioxide 22 mmol/L (22-30); Chloride 106 mmol/L (98-107); Cholesterol 100 mg/dL (<200); Glucose 99 mg/dL (74-99); HDL Cholesterol 50 mg/dL (40-60); Non-African American GFR(MDRD) 59 (>60 ml/min/1.73 sqM); Potassium 4.6 mmol/L (3.5-5.1); Sodium 137 mmol/L (137-145); Triglycerides 156 mg/dL (<150)
--- NOTE | 2016-06-06 08:59 | P.PN ---
Progress Note - Text this is a pleasant 50-year-old gentleman who sees Dr. Vera as an outpatient with a past medical history significant for coronary artery disease, hypertension, dyslipidemia, and obesity, presented to the hospital complaining of chest discomfort. He was in his usual state of health until last night when he was going to bed and started experiencing chest discomfort, described it as a sharp kind of discomfort, in the mid of the chest, with some radiation to the left shoulder, without any associated symptoms of shortness of breath, dizziness or lightheadedness or syncope. The EKG showed sinus rhythm with nonspecific changes in the inferior leads seems to be the same as before. The cardiac enzymes were checked and came in to be unremarkable. The patient underwent a stress test in August 2015 and that showed no evidence of ischemia noted. The last heart catheterization was performed in June2014 by Dr. Vera and that showed patent left anterior descending artery with atrophic HOPKINS to LAD and patent SVG to OM and first and second diagonal. The right coronary artery was chronically occluded and was unprotected. Maximize medical treatment was recommended at that point. The patient is going to have a stress test later on today.
[2016-06-06] MEDS ORDERED: ASPIRIN 325 MG TAB PO SCH (09:00)
[2016-06-06] MEDS ORDERED: SPIRONOLACTONE 25 MG TAB PO SCH (09:00)
[2016-06-06] MEDS: LISINOPRIL 20 MG TAB PO SCH (11:01)
[2016-06-06] MEDS: ISOSORBIDE MONONITRATE ER 60 MG TAB.ER.24H PO SCH (11:01)
[2016-06-06] MEDS: RANOLAZINE 500 MG TAB.ER.12H PO SCH (11:01)
[2016-06-06] MEDS: METOPROLOL TARTRATE 50 MG TAB PO SCH (11:02)
--- NOTE | 2016-06-06 11:14 | NM ---
EXAMINATION TYPE: NM stress lexiscan cardiolite DATE OF EXAM: 06/06/2016 11:06 AM COMPARISON: 08/26/2015 HISTORY: Precordial chest pain and abnormal EKG TECHNIQUE: After the intravenous administration of 9.9 mCi Tc 99m Sestamibi - Cardiolite resting SPE CT images acquired 45 minutes post injection. The patient received 0.4mg Lexiscan, 27.5 mCi Tc 99m Sestamibi - Stress images obtained [address] injection FINDINGS: I do not see evidence for stress-induced ischemia this time. There appears to be evidence of remote i nsult involving the cardiac apex and apical inferior wall. Ejection fraction is 61%. No distinct wall motion abnormality is seen. IMPRESSION: No scintigraphic evidence for reversible ischemia.
[2016-06-06 11:52] VITALS: BP 112/69; PULSE 69; RESP 16; TEMP 98.2
[2016-06-06] MEDS ORDERED: MULTIVITAMINS, THERA 1 EACH TAB PO SCH (12:00)
--- NOTE | 2016-06-06 12:38 | EST ---
DATE OF SERVICE: 06/06/2016 AGE: 50 SEX: M HT: 5'11" WT: 276 lbs. Lexiscan Cardiolite Stress Test *Heart Rate Blood Pressure *Rest: 70 Rest: 97/66 * *Max. Achieved: 98 Maximum BP: 110/58 85% PMHR: 145 100% PMHR: 171 *METS: - INDICATIONS: Chest pain, coronary artery disease. MEDICATIONS: - Baseline EKG revealed a normal sinus rhythm without significant ST-T changes. With Lexiscan administration, heart rate changed from 70 to 98 beats per minute, blood pressure changed 97/66 to 110/58. EKG was unremarkable. Patient did not have any significant symptoms. By EKG criteria, this is an unremarkable Lexiscan stress test. The nuclear scans, which are more pertinent, will be reported by the radiologist.
--- NOTE | 2016-06-06 15:22 | P.DS ---
Providers Date of admission: 06/05/16 00:15 Expected date of discharge: 06/06/16 Attending physician: Tia Gaona Primary care physician: Sharron Hernández [facility] Course: This is a 50-year-old gentleman patient of Dr. Edgar Vera. He has underlying history of CAD, CABG, previous CVA involving the occipital lobe, chronic tobacco use and cigar use, moderate alcohol consumption. His cardiac history are as follows:coronary artery disease multiple procedure including bypass grafting 2008 which is HOPKINS to the LAD and saphenous vein graft to the diagonal 1 saphenous vein graft to the diagonal 2 and saphenous vein graft to the obtuse marginal and right coronary artery. Patient also had heart cath with multiple angioplasty in the last a few years his last heart cath was in June 2014 which revealed patent saphenous vein graft to the obtuse marginal diagonal 1 and diagonal 2 patent LAD free of any atherosclerotic disease with atrophic HOPKINS to the LAD and patent saphenous vein graft to the obtuse marginal . negative stress test in August 2015, echocardiogram at that time showed ejection fraction of 50-55% inferoseptal LV wall motion hypokinesia mild aortic valve sclerosis without stenosis, no aortic regurgitation, mild MR and mild TR no pulmonary hypertension aortic root is normal no pericardial effusion at that time he presented to the emergency room secondary to acute chest pain which happened at nighttime, patient was in bed resting he had substernal chest pain sharp radiating to the left shoulder starting 913 in the evening until his ER presentation. Patient mentioned that he had a rough week the week as he had moved out of his current house and has been lifting lots of household items during this move. Patient denies any trauma no pleurisy no chest contusion no cough no fever no chills In the emergency room he had an abnormal EKG presenting with T wave elevation inferior leads, his troponins are negative 3 is scheduled for a stress test Monday morning and heparin was started and was discontinued after seen in consultation by cardiology 06/06: Vision underwent Lexiscan stress test which was negative and he has been cleared for discharge today. Patient will be discharged home in stable condition. Discharge Diagnoses: 1 chest pain: Atypical 2 COPD without exacerbation 3. CKD stage III 3 cardiomyopathy: With multiple coronary artery disease 4 hypertension 5 hyperlipidemia 6 recurrent gastritis and GERD 7 arrhythmia 8 recurrent history of angina 9 chronic tobacco use Discharge plan: Return home Impression and plan of care have been directed as dictated by the signing physician. Karissa Moncada nurse practitioner acting as scribe for signing physician. Patient Condition at Discharge: Good Plan - Discharge Summary Discharge Medication List Atorvastatin [Lipitor] 80 mg PO HS 06/25/13 [History] HYDROcodone/APAP 10-325MG [[place] 10-325] 1 tab PO Q6H PRN 06/25/13 [History] Metoprolol Tartrate [Lopressor] 50 mg PO BID 06/25/13 [History] Nitroglycerin Sl Tabs [Nitrostat] 0.4 mg SUBLINGUAL Q5M PRN 06/25/13 [History] Multivitamin [Men's Multi-Vitamin] 1 tab PO DAILY 09/23/13 [History] Ranolazine [Ranexa] 1,000 mg PO BID 09/23/13 [History] Pantoprazole Sodium [Protonix] 40 mg PO DAILY 07/02/14 [History] Spironolactone [Aldactone] 25 mg PO DAILY 06/19/15 [History] Isosorbide Mononitrate ER [Imdur] 120 mg PO BID 10/13/15 [History] Aspirin [Adult Low Dose Aspirin EC] 81 mg PO HS 01/11/16 [History] Enalapril [Vasotec] 40 mg PO BID #0 06/06/16 [Rx] Follow up Appointment(s)/Referral(s): [facility] [Provider Group] - 1 Week Sharron Hernández MD [Primary Care Provider] - 1 Week Sofía Ren MD [STAFF PHYSICIAN] - 2 Weeks Patient Instructions/Handouts: Angina (DC) Discharge Disposition: HOME SELF-CARE
== END 2016-06-06 14:32 | disposition home or self-care (01) ==
LOC: EC 22:28 → 6SEL 06-05 00:15 → 3SUR 06-05 20:32 → 3OBS 06-06 09:34
PROVIDERS: ADMIT Family Medicine; ATTEND Family Medicine
DX: R07.89 Other chest pain (principal); I25.119 Atherosclerotic heart disease of native coronary artery with unspecified angina pectoris; I12.9 Hypertensive chronic kidney disease with stage 1 through stage 4 chronic kidney disease, or unspecified chronic kidney disease; N18.3 Chronic kidney disease, stage 3 (moderate); E78.5 Hyperlipidemia, unspecified; I25.2 Old myocardial infarction; I49.9 Cardiac arrhythmia, unspecified; E66.9 Obesity, unspecified; Z68.38 Body mass index [BMI] 38.0-38.9, adult; J44.9 Chronic obstructive pulmonary disease, unspecified; F17.290 Nicotine dependence, other tobacco product, uncomplicated; I42.9 Cardiomyopathy, unspecified; G47.30 Sleep apnea, unspecified; K29.70 Gastritis, unspecified, without bleeding; K21.9 Gastro-esophageal reflux disease without esophagitis; G43.909 Migraine, unspecified, not intractable, without status migrainosus; E55.9 Vitamin D deficiency, unspecified; Z79.899 Other long term (current) drug therapy; Z79.82 Long term (current) use of aspirin; Z91.018 Allergy to other foods; Z95.1 Presence of aortocoronary bypass graft; Z95.5 Presence of coronary angioplasty implant and graft; Z86.73 Personal history of transient ischemic attack (TIA), and cerebral infarction without residual deficits
CPT/HCPCS: 96361; 96365; 96366; 96376 ×2; 99291; 36415; 94760; 93005; 93017; 80061; 80053; 80048; 82550 ×2; 82553 ×2; 83735; 84484 ×2; 85025 ×2; 85049; 85610; 85730 ×2; 71010; 78452; G0378 ×2; A9500; J1644 ×2; J2785

== ENCOUNTER → 2016-08-04 | Outpatient (CLI) | payer MEDICARE, OTHER ==
--- NOTE | 2016-08-11 23:19 | CONS ---
DATE OF SERVICE: 08/04/2016 This patient is a 50-year-old gentleman who has been evaluated in the sleep center for obstructive sleep apnea/hypopnea syndrome. HISTORY OF PRESENT ILLNESS/SLEEP-WAKE EVALUATION: The patient was diagnosed with obstructive sleep apnea in 2011. At that time his apnea/hypopnea index was 55.1. At present, the patient's sleep schedule is from 11 or 12 midnight until 6 :30 or 7 a.m. Usually no problem with falling asleep. Patient continues to have snoring and wakes up tired. [place] Sleepiness Scale increased significantly to 15. Past medical history is positive for: 1. Hypertension. 2. Acid reflux. 3. Hyperlipidemia. 4. Back problems. 5. Shoulder problems. 6. Heart attack 7 times. 7. Status post CABG in 2008 and stent insertion in 2010. 8. Status post cholecystectomy. MEDICATIONS: 1. Spironolactone. 2. Protonix. 3. Metoprolol. 4. Enalapril. 5. Isosorbide. 6. Atorvastatin. 7. Aspirin. 8. Brea. 9. Nitrostat. SOCIAL HISTORY: Positive for seldom usage of cigar. Alcohol consumption occasional. REVIEW OF SYSTEMS: No fevers. No double vision. No recent chest pain. No shortness of breath. No abdominal pain. No bleeding episodes. No blood in urine. No seizure episodes. Tiredness and sleepiness during the day. PHYSICAL EXAM: The patient is a pleasant 50-year-old gentleman without distress. VITAL SIGNS: Blood pressure 121/75, respiratory rate 16. Height 5 feet 10 inches. Weight 284. BMI 40.7. Neck 17-1/2 inches in circumference. Temperature 97.5. Oxygen saturation at room air 98%. GENERAL: A pleasant patient without distress. HEENT: PERRLA. EOMI. Evaluation of oropharynx showed tongue protrudes midline. Low position of soft palate. NECK: Supple. No JVD. Thyroid is not palpable. LUNGS: Clear to percussion and to auscultation. Good air exchange. No wheezing or rhonchi. HEART: S1, S2 regular. No murmurs, gallops or rubs. ABDOMEN: Obese. EXTREMITIES: No clubbing or cyanosis. AERIAL LINEMAN: Awake, alert and oriented x3. Cranial nerves 2 through 7 are intact. There is no fasciculation or atrophy noted. No focal deficits observed. IMPRESSION: 1. Snoring, history of severe obstructive sleep apnea diagnosed in 2011, sleepiness during the day, obesity; obstructive sleep apnea/hypopnea syndrome. 2. Coronary artery disease, status post several heart attacks, CABG and stent insertions. 3. Hypertension. 4. Obesity; body mass index 40.7. 5. Acid reflux. 6. Hyperlipidemia. 7. Back problem. 8. Shoulder problems. PLAN: 1. Polysomnography for evaluation of patients breathing during sleep. 2. CPAP/BiPAP titration if sleep study confirms obstructive sleep apnea/ hypopnea syndrome. 3. Preferable position during sleep on the side. 4. No driving if feeling any sleepiness. Patient is aware of civil and criminal liability for unsafe driving. 5. I will see this patient for follow-up visit to explain results of the testing and follow-up plan. Sincerely, Sincere Esteban. , PhD, FAASM. Diplomat of [place] [employer], Sleep Medicine Board by [place] [employer] [place] [employer] [facility] [place] [facility]ITAL[facility]
== END ==
LOC: SLEEP 10:33
PROVIDERS: ATTEND Internal Medicine
DX: G47.33 Obstructive sleep apnea (adult) (pediatric) (principal); I25.10 Atherosclerotic heart disease of native coronary artery without angina pectoris; E66.9 Obesity, unspecified; K21.9 Gastro-esophageal reflux disease without esophagitis; E78.5 Hyperlipidemia, unspecified; Z68.41 Body mass index [BMI] 40.0-44.9, adult; Z79.899 Other long term (current) drug therapy; Z79.82 Long term (current) use of aspirin
CPT/HCPCS: 99211

== ENCOUNTER → 2016-11-07 | Outpatient (CLI) | payer MEDICARE, OTHER ==
--- NOTE | 2016-11-07 09:10 | CT ---
EXAMINATION TYPE: CT urogram wo/w con DATE OF EXAM: 11/07/2016 COMPARISON: NONE HISTORY: Patient complains of microscopic hematuria. CT DLP: 5216.8 mGycm CONTRAST: Performed and with IV Contrast, patient injected with 100 mL of Omnipaque 300. CT Urography was performed with unenhanced followed by enhanced images of the kidneys, ureters and ur inary bladder. Delayed images were obtained. 3d reconstruction was perfromed at a separate work sta tion. FINDINGS: KIDNEYS/BLADDER: No hydronephrosis. No nephrolithiasis. 1.8 cm simple cyst midpole right kidney. No solid renal lesions identified. Urinary bladder grossly unremarkable. LUNG BASES-: No visible nodule. No infiltrate. LIVER/GB: Cholecystectomy clips are noted. No space occupying hepatic lesion. Biliary tree is of norm al caliber. PANCREAS: No inflammation. No distinct mass. SPLEEN: No splenic enlargement. No lesion seen. ADRENALS: No nodule. No thickening. BOWEL: Normal appendix. Normal bowel caliber. No inflammation. GENITAL ORGANS: No gross abnormality. LYMPH NODES: No greater than 1cm abdominal or pelvic lymph nodes are appreciated. AORTA: No significant abnormality. OSSEOUS STRUCTURES: No significant abnormality is seen. OTHER: No significant additional abnormality is seen. IMPRESSION: 1. No significant abnormality to account for the patient's symptoms. Simple cyst right kidney.
== END | disposition home or self-care (01) ==
LOC: RADCTMAIN 07:03
PROVIDERS: ATTEND Internal Medicine
DX: R31.21 Asymptomatic microscopic hematuria (principal)
CPT/HCPCS: 74178; 74400; Q9967

== ENCOUNTER 2017-04-04 12:03 | Inpatient (IN) | payer MEDICARE, OTHER ==
--- NOTE | 2017-04-04 12:22 | ED ---
General Adult HPI - General Chief complaint: Syncope Stated complaint: dizziness Time Seen by Provider: 04/04/17 12:07 Source: patient, RN notes reviewed, old records reviewed Mode of arrival: EMS Limitations: no limitations - History of Present Illness Initial comments: This is a 51-year-old male the ER for evaluation today. This patient comes in for reevaluation of near syncopal event. Patient does have history of heart disease with CABG. Patient has history of orthostatic hypotension and tachycardia. Patient states he fell using pass out earlier today without passing out. He has significant events like this often. Patient was at work when the event happened. He felt diaphoretic. No shortness of breath no chest pain.. Patient is without complaint currently - Related Data Home Medications Medication Instructions Recorded Confirmed Atorvastatin [Lipitor] 80 mg PO HS 06/25/13 04/04/17 HYDROcodone/APAP 10-325MG [[place] 1 tab PO TID PRN 06/25/13 04/04/17 10-325] Metoprolol Tartrate [Lopressor] 50 mg PO BID 06/25/13 04/04/17 Nitroglycerin Sl Tabs [Nitrostat] 0.4 mg SUBLINGUAL Q5M PRN 06/25/13 04/04/17 Ranolazine [Ranexa] 1,000 mg PO BID 09/23/13 04/04/17 Pantoprazole Sodium [Protonix] 40 mg PO DAILY 07/02/14 04/04/17 Spironolactone [Aldactone] 25 mg PO DAILY 06/19/15 04/04/17 Isosorbide Mononitrate ER [Imdur] 120 mg PO BID 10/13/15 04/04/17 Aspirin [Adult Low Dose Aspirin EC] 81 mg PO HS 01/11/16 04/04/17 Enalapril [Vasotec] 20 mg PO BID 04/04/17 04/04/17 Lactulose 20 gm PO BID PRN 04/04/17 04/04/17 Phentermine HCl [Adipex-P] 37.5 mg PO DAILY 04/04/17 04/04/17 Allergies Allergy/AdvReac Type Severity Reaction Status Date / Time chocolate flavor Allergy Rash/Hives Verified 04/04/17 12:21 [place] And Derivatives Allergy Rash/Hives Verified 04/04/17 12:21 [[place]] Review of Systems ROS Statement: Those systems with pertinent positive or pertinent negative responses have been documented in the HPI. ROS Other: All systems not noted in ROS Statement are negative. 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 Last Myocardial Infarction Date:: 01-22-2011 History of Any Multi-Drug Resistant Organisms: None Reported Past Surgical History: Adenoidectomy, Cholecystectomy, Coronary Bypass/CABG, Heart Catheterization, Heart Catheterization With Stent, Hernia Repair Additional Past Surgical History / Comment(s): Several caths with last one done 07/02/14 treated medically, total 4 stents (states placed 01/2011), CABG 5 vessel in 2008 (stents came after open heart was done), EGD/colonoscopy, hemorrhoid banding, possible pain injections lower back-pt unsure. Past Anesthesia/Blood Transfusion Reactions: Previous Problems w/ Anesthesia Additional Past Anesthesia/Blood Transfusion Reaction / Comment(s): stated "wakes up slower than normal" Date of Last Stent Placement:: 01-22-2011 Past Psychological History: No Psychological Hx Reported Smoking Status: Light tobacco smoker Past Alcohol Use History: Occasional Past Drug Use History: Marijuana - Past Family History Father Family Medical History: Coronary Artery Disease (CAD) Additional Family Medical History / Comment(s): dad is 75. stents, bypass, prostate and lung cancer. Mother Additional Family Medical History / Comment(s): mom 1997 at age 59- brain aneurysm General Exam Limitations: no limitations General appearance: alert, in no apparent distress Head exam: Present: atraumatic, normocephalic, normal inspection Eye exam: Present: normal appearance, PERRL, EOMI. Absent: scleral icterus, conjunctival injection, periorbital swelling ENT exam: Present: normal exam, mucous membranes moist Neck exam: Present: normal inspection. Absent: tenderness, meningismus, lymphadenopathy Respiratory exam: Present: normal lung sounds bilaterally. Absent: respiratory distress, wheezes, rales, rhonchi, stridor Cardiovascular Exam: Present: regular rate, normal rhythm, normal heart sounds. Absent: systolic murmur, diastolic murmur, rubs, gallop, clicks GI/Abdominal exam: Present: soft, normal bowel sounds. Absent: distended, tenderness, guarding, rebound, rigid Extremities exam: Present: normal inspection, full ROM, normal capillary refill. Absent: tenderness, pedal edema, joint swelling, calf tenderness Back exam: Present: normal inspection Neurological exam: Present: alert, oriented X3, CN II-XII intact Psychiatric exam: Present: normal affect, normal mood Skin exam: Present: warm, dry, intact, normal color. Absent: rash Course Vital Signs 04/04/17 04/04/17 04/04/17 12:04 12:46 13:20 Temperature 97.5 F L Pulse Rate 77 76 69 Respiratory 18 18 Rate Blood Pressure 102/52 79/45 87/52 O2 Sat by Pulse 100 96 96 Oximetry 04/04/17 04/04/17 04/04/17 13:50 14:30 14:59 Temperature Pulse Rate 66 64 66 Respiratory 16 Rate Blood Pressure 86/53 93/53 91/54 O2 Sat by Pulse 98 100 99 Oximetry - Reevaluation(s) Reevaluation #1: 04/04/17 15:24 Patient remains persistently dizzy with hypotension EKG Findings - EKG Comments: EKG Findings:: EKG shows normal sinus rhythm rate of 77, ID 170, QRS 90, QTc 482 Medical Decision Making - Medical Decision Making 51 male the ER for evaluation of near syncope, history of orthostatic hypotension and tachycardia, patient is on blood pressure medications will blood pressure remained persistently low, he did take his blood pressure medication today. Patient be admitted for cardiology evaluation - Lab Data Result diagrams: 04/04/17 12:08 04/04/17 12:08 Lab Results 04/04/17 04/04/17 04/04/17 Range/Units 12:08 12:08 12:08 WBC 7.1 (3.8-10.6) k/uL RBC 4.53 (4.30-5.90) m/uL Hgb 11.1 L (13.0-17.5) gm/dL Hct 36.2 L (39.0-53.0) % MCV 80.0 (80.0-100.0) fL MCH 24.4 L (25.0-35.0) pg MCHC 30.5 L (31.0-37.0) g/dL RDW 16.5 H (11.5-15.5) % Plt Count 278 (150-450) k/uL Neutrophils % 75 % Lymphocytes % 20 % Monocytes % 3 % Eosinophils % 1 % Basophils % 0 % Neutrophils # 5.3 (1.3-7.7) k/uL Lymphocytes # 1.4 (1.0-4.8) k/uL Monocytes # 0.2 (0-1.0) k/uL Eosinophils # 0.0 (0-0.7) k/uL Basophils # 0.0 (0-0.2) k/uL Hypochromasia Marked Anisocytosis Slight D-Dimer (<0.60) mg/L FEU Sodium 139 (137-145) mmol/L Potassium 5.0 (3.5-5.1) mmol/L Chloride 107 (98-107) mmol/L Carbon Dioxide 20 L (22-30) mmol/L Anion Gap 12 mmol/L BUN 15 (9-20) mg/dL Creatinine 1.87 H (0.66-1.25) mg/dL Est GFR (MDRD) Af Amer 47 (>60 ml/min/1.73 sqM) Est GFR (MDRD) Non-Af 38 (>60 ml/min/1.73 sqM) Glucose 158 H (74-99) mg/dL Calcium 8.3 L (8.4-10.2) mg/dL Phosphorus 3.0 (2.5-4.5) mg/dL Magnesium 1.7 (1.6-2.3) mg/dL Total Bilirubin 0.9 (0.2-1.3) mg/dL AST 19 (17-59) U/L ALT 31 (21-72) U/L Alkaline Phosphatase 70 (38-126) U/L Total Creatine Kinase 45 L (55-170) U/L CK-MB (CK-2) 0.7 (0.0-2.4) ng/mL CK-MB (CK-2) Rel Index 1.6 Troponin I <0.012 (0.000-0.034) ng/mL Total Protein 6.1 L (6.3-8.2) g/dL Albumin 3.3 L (3.5-5.0) g/dL 04/04/17 Range/Units 12:08 WBC (3.8-10.6) k/uL RBC (4.30-5.90) m/uL Hgb (13.0-17.5) gm/dL Hct (39.0-53.0) % MCV (80.0-100.0) fL MCH (25.0-35.0) pg MCHC (31.0-37.0) g/dL RDW (11.5-15.5) % Plt Count (150-450) k/uL Neutrophils % % Lymphocytes % % Monocytes % % Eosinophils % % Basophils % % Neutrophils # (1.3-7.7) k/uL Lymphocytes # (1.0-4.8) k/uL Monocytes # (0-1.0) k/uL Eosinophils # (0-0.7) k/uL Basophils # (0-0.2) k/uL Hypochromasia Anisocytosis D-Dimer 0.20 (<0.60) mg/L FEU Sodium (137-145) mmol/L Potassium (3.5-5.1) mmol/L Chloride (98-107) mmol/L Carbon Dioxide (22-30) mmol/L Anion Gap mmol/L BUN (9-20) mg/dL Creatinine (0.66-1.25) mg/dL Est GFR (MDRD) Af Amer (>60 ml/min/1.73 sqM) Est GFR (MDRD) Non-Af (>60 ml/min/1.73 sqM) Glucose (74-99) mg/dL Calcium (8.4-10.2) mg/dL Phosphorus (2.5-4.5) mg/dL Magnesium (1.6-2.3) mg/dL Total Bilirubin (0.2-1.3) mg/dL AST (17-59) U/L ALT (21-72) U/L Alkaline Phosphatase (38-126) U/L Total Creatine Kinase (55-170) U/L CK-MB (CK-2) (0.0-2.4) ng/mL CK-MB (CK-2) Rel Index Troponin I (0.000-0.034) ng/mL Total Protein (6.3-8.2) g/dL Albumin (3.5-5.0) g/dL Disposition Clinical Impression: Vasovagal syncope, Hx of CABG, Hypotension, Syncope due to orthostatic hypotension Disposition: ADMITTED IP TO THIS HOSP Condition: Fair Referrals: Sharron Hernández MD [Primary Care Provider] - 1-2 days
[2017-04-04] MEDS ORDERED: SODIUM CHLORIDE 0.9% 1,000 ML IV STA ×2 (12:27→13:30)
[2017-04-04 12:39] LABS: Anisocytosis Slight; Basophils % (A) 0 %; Eosinophils % (A) 1 %; HCT 36.2 % (39.0-53.0); HGB 11.1 gm/dL (13.0-17.5); Hypochromasia Marked; Lymphocytes # (A) 1.4 k/uL (1.0-4.8); Lymphocytes % (A) 20 %; MCH 24.4 pg (25.0-35.0); MCHC 30.5 g/dL (31.0-37.0); Mean Platelet Volume 7.4; Monocytes # (A) 0.2 k/uL (0-1.0); Monocytes % (A) 3 %; Neutrophils # (A) 5.3 k/uL (1.3-7.7); Neutrophils % (A) 75 %; Platelet Count 278 k/uL (150-450); RBC 4.53 m/uL (4.30-5.90); RDW 16.5 % (11.5-15.5); WBC 7.1 k/uL (3.8-10.6)
[2017-04-04 12:52] LABS: Albumin 3.3 g/dL (3.5-5.0); Calcium 8.3 mg/dL (8.4-10.2); Total Bilirubin 0.9 mg/dL (0.2-1.3); Total Protein 6.1 g/dL (6.3-8.2)
[2017-04-04 12:57] LABS: Creatine Kinase 45 U/L (55-170)
[2017-04-04 13:09] LABS: Creatine Kinase MB 0.7 ng/mL (0.0-2.4); Troponin I <0.012 ng/mL (0.000-0.034)
--- NOTE | 2017-04-04 15:13 | XR ---
EXAMINATION TYPE: XR chest 2V DATE OF EXAM: 04/04/2017 COMPARISON: 06/04/2016 HISTORY: 51-year-old male blood pressure, shaking TECHNIQUE: AP and lateral views FINDINGS: Median sternotomy wires are present post CABG clips. Heart upper limits of normal in size. Mild diffu se interstitial prominence has a chronic appearance. No consolidation or pleural effusion. IMPRESSION: 1. Stable borderline heart size. 2. Chronic appearing changes. No definite acute process.
[2017-04-04 18:06] VITALS: BMI 36.9
[2017-04-04] MEDS ORDERED: NITROGLYCERIN SL TABS 0.4 MG TAB SUBLINGUAL PRN (18:20)
[2017-04-04] MEDS ORDERED: LACTULOSE 20 GM/30 ML CUP PO PRN (18:20)
[2017-04-04 18:29] LABS: Creatine Kinase 43 U/L (55-170)
[2017-04-04] MEDS: HYDROcodone/APAP 10-325MG 1 EACH TAB PO PRN (18:35)
[2017-04-04] MEDS: SODIUM CHLORIDE 0.9% 1,000 ML IV SCH (18:37)
[2017-04-04 18:42] LABS: Creatine Kinase MB 0.6 ng/mL (0.0-2.4); Troponin I <0.012 ng/mL (0.000-0.034)
[2017-04-04] MEDS: ATORVASTATIN 80 MG TAB PO SCH (22:17)
[2017-04-04] MEDS: RANOLAZINE 500 MG TAB.ER.12H PO SCH (22:17)
[2017-04-04] MEDS: ASPIRIN 81 MG PO SCH (22:17)
[2017-04-04] MEDS: METOPROLOL TARTRATE 50 MG TAB PO SCH (22:17)
[2017-04-05 00:23] LABS: Creatine Kinase 43 U/L (55-170)
[2017-04-05 00:37] LABS: Creatine Kinase MB 0.6 ng/mL (0.0-2.4); Troponin I <0.012 ng/mL (0.000-0.034)
[2017-04-05 03:43] LABS: Cholesterol 99 mg/dL (<200); HDL Cholesterol 38 mg/dL (40-60); LDL Cholesterol,Calculated 43 mg/dL (0-99); Triglycerides 91 mg/dL (<150)
[2017-04-05] MEDS: PANTOPRAZOLE 40 MG TABLET PO SCH (06:55)
[2017-04-05] MEDS: PATIENT'S OWN MED (Phentermine Hcl [Adipex-P] 37.5 MG) PO SCH (08:35)
[2017-04-05] MEDS: SODIUM CHLORIDE 0.9% 1,000 ML IV SCH ×2 (08:35→20:18)
[2017-04-05] MEDS: METOPROLOL TARTRATE 50 MG TAB PO SCH (08:36)
[2017-04-05] MEDS: RANOLAZINE 500 MG TAB.ER.12H PO SCH ×2 (08:36→20:10)
[2017-04-05] MEDS: HYDROcodone/APAP 10-325MG 1 EACH TAB PO PRN (08:38)
[2017-04-05] MEDS ORDERED: SPIRONOLACTONE 25 MG TAB PO SCH (09:00)
--- NOTE | 2017-04-05 12:29 | P.CRDCN ---
History of Present Illness Consult date: 04/05/17 Requesting physician: Laura Davies Consult reason: sycope Chief complaint: Near syncope History of present illness: This is a 51-year-old gentleman who used to follow with RAFAEL Ren in the office, he now sees Dr. Jorgensen. He has a known history of coronary artery disease with prior bypass surgery in 2008, multiple stent placements, hypertension, hyperlipidemia, prior CVA, sleep apnea, GERD, renal insufficiency , he just recently had an echocardiogram with Doppler study performed in the office one week ago which revealed an ejection fraction of 50%, hypokinesia of the inferior and septal lindsey noted at the base. The patient states she's been doing fairly well, he has not been having any angina, he states that he presented to the hospital on this occasion with symptoms of lightheadedness and near syncope. He states that he has been noting himself to be lightheaded off and on for the past couple of weeks. He states that the lightheadedness came on , and he felt as though he may pass out so he leaned up against a wall. Symptoms persisted so he sat himself down onto the ground. People that were there with him as stated that he became ashen in color, there was a nurse at [facility] emergency department, who came to assess him, states that he was clammy and cool, blood pressure was noted to be quite low as was his heart rate. For this reason he was brought to the emergency room for further evaluation. Blood pressure on arrival here 102/50, heart rate in the 70s. Blood pressure here did go down into the 70s at times, 118/70 now. Heart rate in the 50s. White blood cell count 7.1, hemoglobin 11.1, platelet count 78. Sodium 139, potassium 5.0, BUN 15, creatinine 1.8. Troponins are negative 3. At the time of my examination this morning, patient feels well, denies any lightheadedness or dizziness. No chest discomfort. D-dimer was also negative at 0.2. EKG on arrival here shows normal sinus rhythm. Chest x-ray reveals stable borderline heart size. No definite acute process. 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 Last Myocardial Infarction Date:: 01-22-2011 History of Any Multi-Drug Resistant Organisms: None Reported Past Surgical History: Adenoidectomy, Cholecystectomy, Coronary Bypass/CABG, Heart Catheterization, Heart Catheterization With Stent, Hernia Repair Additional Past Surgical History / Comment(s): Several caths with last one done 07/02/14 treated medically, total 4 stents (states placed 01/2011), CABG 5 vessel in 2008 (stents came after open heart was done), EGD/colonoscopy, hemorrhoid banding, possible pain injections lower back-pt unsure. Past Anesthesia/Blood Transfusion Reactions: Previous Problems w/ Anesthesia Additional Past Anesthesia/Blood Transfusion Reaction / Comment(s): stated "wakes up slower than normal" Date of Last Stent Placement:: 01-22-2011 Past Psychological History: No Psychological Hx Reported Additional Psychological History / Comment(s): Pt states he has no current mental health disease. He states he had suicidal thoughts yrs ago at age 43, immediately following CABG in 2008 due to drastic lifestyle changes and being told he could no longer work. was admitted to psych but no longer has depression or thoughts of suicide sought counseling and is no longer having such thoughts. He resides with family. He is independent. 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 Smoking Status: Light tobacco smoker Past Alcohol Use History: Occasional Additional Past Alcohol Use History / Comment(s): started smoking age 15 never more than 1/2 ppd and later in life took up cigars (one per week at most). quit in oct 2012. may have a drink AND CIGAR once a week or less. Past Drug Use History: Marijuana Additional Drug Use History / Comment(s): as teenager into 20's occ smoked marijuana NOW seldom - Past Family History Father Family Medical History: Coronary Artery Disease (CAD) Additional Family Medical History / Comment(s): dad is 75. stents, bypass, prostate and lung cancer. Mother Additional Family Medical History / Comment(s): mom 1997 at age 59- brain aneurysm Medications and Allergies Home Medications Medication Instructions Recorded Confirmed Type Atorvastatin [Lipitor] 80 mg PO HS 06/25/13 04/04/17 History HYDROcodone/APAP 10-325MG [[place] 1 tab PO BID PRN 06/25/13 04/04/17 History 10-325] Metoprolol Tartrate [Lopressor] 50 mg PO BID 06/25/13 04/04/17 History Nitroglycerin Sl Tabs [Nitrostat] 0.4 mg SUBLINGUAL Q5M PRN 06/25/13 04/04/17 History Ranolazine [Ranexa] 1,000 mg PO BID 09/23/13 04/04/17 History Pantoprazole Sodium [Protonix] 40 mg PO DAILY 07/02/14 04/04/17 History Spironolactone [Aldactone] 25 mg PO DAILY 06/19/15 04/04/17 History Isosorbide Mononitrate ER [Imdur] 120 mg PO BID 10/13/15 04/04/17 History Aspirin [Adult Low Dose Aspirin EC] 81 mg PO HS 01/11/16 04/04/17 History Enalapril [Vasotec] 20 mg PO BID 04/04/17 04/04/17 History Lactulose 20 gm PO BID PRN 04/04/17 04/04/17 History Phentermine HCl [Adipex-P] 37.5 mg PO DAILY 04/04/17 04/04/17 History Allergies Allergy/AdvReac Type Severity Reaction Status Date / Time chocolate flavor Allergy Rash/Hives Verified 04/04/17 12:21 [place] And Derivatives Allergy Rash/Hives Verified 04/04/17 12:21 [[place]] Physical Exam Vitals: Vital Signs Temp Pulse Pulse Pulse Resp BP BP 04/05/17 11:54 60 55 L 16 04/05/17 08:00 96.8 F L 60 16 04/05/17 04:33 100/76 04/05/17 04:20 55 L 18 04/05/17 04:15 96.5 F L 60 18 02/28/18 00:10 97.7 F 61 18 04/04/17 20:20 97.3 F L 69 18 04/04/17 17:05 97.1 F L 65 18 121/73 04/04/17 16:11 60 16 101/65 04/04/17 16:00 96.8 F L 57 L 58 L 16 04/04/17 15:25 58 L 15 102/55 04/04/17 14:59 66 16 91/54 04/04/17 14:30 64 93/53 04/04/17 13:50 66 86/53 04/04/17 13:20 69 18 87/52 04/04/17 12:46 76 79/45 04/04/17 12:04 97.5 F L 77 18 102/52 BP BP BP Pulse Ox 04/05/17 11:54 04/05/17 08:00 113/77 95 04/05/17 04:33 107/68 106/64 04/05/17 04:20 04/05/17 04:15 118/69 96 04/05/17 00:10 113/77 96 04/04/17 20:20 117/77 99 04/04/17 17:05 99 04/04/17 16:11 97 04/04/17 16:00 112/78 100 04/04/17 15:25 96 04/04/17 14:59 99 04/04/17 14:30 100 04/04/17 13:50 98 04/04/17 13:20 96 04/04/17 12:46 96 04/04/17 12:04 100 Intake and Output 04/04/17 04/05/17 04/05/17 22:59 06:59 14:59 Intake Total 260 855 900 Output Total 350 Balance 260 855 550 Intake: Intake, IV Titration 20 375 900 Amount Sodium Chloride 0.9% 1, 375 900 000 ml @ 75 mls/hr IV . [id number] [facility] Rx#:[id number] Sodium Chloride 0.9% 1, 20 000 ml @ 999 mls/hr IV . Q1H1M [facility] Rx#:[id number] Oral 240 480 Output: Urine 350 Other: Voiding Method Toilet Toilet Urinal Urinal # Voids 1 Weight 120.202 kg 122.3 kg PHYSICAL EXAMINATION: HEENT: Head is atraumatic, normocephalic. Pupils equal, round. Neck is supple. There is no elevated jugular venous pressure. HEART EXAMINATION: Heart S1, S2 normal. No murmur or gallop heard. CHEST EXAMINATION: Lungs are clear to auscultation and precussion. No chest wall tenderness is noted on palpation or with deep breathing. ABDOMEN: Soft, nontender. Bowel sounds are heard. No organomegaly noted. EXTREMITIES: 2+ peripheral pulses with no evidence of peripheral edema and no calf tenderness noted. NEUROLOGIC patient is awake, alert and oriented -3. . Results 04/04/17 12:08 04/04/17 12:08 Cardiac Enzymes 04/04/17 04/04/17 04/04/17 Range/Units 12:08 12:08 17:58 AST 19 (17-59) U/L CK-MB (CK-2) 0.7 0.6 (0.0-2.4) ng/mL Troponin I <0.012 <0.012 (0.000-0.034) ng/mL 04/04/17 Range/Units 23:21 AST (17-59) U/L CK-MB (CK-2) 0.6 (0.0-2.4) ng/mL Troponin I <0.012 (0.000-0.034) ng/mL Lipids 04/04/17 Range/Units 12:08 Triglycerides 91 (<150) mg/dL Cholesterol 99 (<200) mg/dL HDL Cholesterol 38 L (40-60) mg/dL CBC 04/04/17 Range/Units 12:08 WBC 7.1 (3.8-10.6) k/uL RBC 4.53 (4.30-5.90) m/uL Hgb 11.1 L (13.0-17.5) gm/dL Hct 36.2 L (39.0-53.0) % Plt Count 278 (150-450) k/uL Comprehensive Metabolic Panel 04/04/17 Range/Units 12:08 Sodium 139 (137-145) mmol/L Potassium 5.0 (3.5-5.1) mmol/L Chloride 107 (98-107) mmol/L Carbon Dioxide 20 L (22-30) mmol/L BUN 15 (9-20) mg/dL Creatinine 1.87 H (0.66-1.25) mg/dL Glucose 158 H (74-99) mg/dL Calcium 8.3 L (8.4-10.2) mg/dL AST 19 (17-59) U/L ALT 31 (21-72) U/L Alkaline Phosphatase 70 (38-126) U/L Total Protein 6.1 L (6.3-8.2) g/dL Albumin 3.3 L (3.5-5.0) g/dL Current Medications Generic Name Dose Route Start Last Admin Trade Name Freq PRN Reason Stop Dose Admin Hydrocodone Bitart/Acetaminophen 1 each 04/04/17 18:20 04/05/17 08:38 [place] 10 PO 1 each BID PRN Administration Pain Aspirin 81 mg 04/04/17 21:00 04/04/17 22:17 Aspirin PO 81 mg HS EDWARDO Administration Atorvastatin Calcium 80 mg 04/04/17 21:00 04/04/17 22:17 Lipitor PO 80 mg HS EDWARDO Administration Sodium Chloride 1,000 mls @ 75 mls/hr 04/04/17 18:30 04/05/17 08:35 Saline 0.9% IV 75 mls/hr .[id number] EDWARDO Administration Lactulose 20 gm 04/04/17 18:20 Cephulac PO BID PRN Constipation Metoprolol Tartrate 25 mg 04/05/17 21:00 Lopressor PO BID EDWARDO Nitroglycerin 0.4 mg 04/04/17 18:20 Nitrostat SUBLINGUAL Q5M PRN Chest Pain Patient's Own Med ( 37.5 mg 04/05/17 09:00 04/05/17 08:35 Phentermine Hcl [ PO Not Given Adipex-P] 37.5 Mg) DAILY EDWARDO Pantoprazole Sodium 40 mg 04/05/17 07:30 04/05/17 06:55 Protonix PO 40 mg [id number] EDWARDO Administration Ranolazine 1,000 mg 04/04/17 21:00 04/05/17 08:36 Ranexa PO 1,000 mg BID EDWARDO Administration Spironolactone 25 mg 04/05/17 09:00 04/05/17 08:36 Aldactone PO 25 mg DAILY EDWARDO Administration Intake and Output 04/04/17 04/05/17 04/05/17 22:59 06:59 14:59 Intake Total 260 855 900 Output Total 350 Balance 260 855 550 Intake: Intake, IV Titration 20 375 900 Amount Sodium Chloride 0.9% 1, 375 900 000 ml @ 75 mls/hr IV . [id number] [facility] Rx#:[id number] Sodium Chloride 0.9% 1, 20 000 ml @ 999 mls/hr IV . Q1H1M [facility] Rx#:[id number] Oral 240 480 Output: Urine 350 Other: Voiding Method Toilet Toilet Urinal Urinal # Voids 1 Weight 120.202 kg 122.3 kg 04/04/17 12:08 04/04/17 12:08 EKG Interpretations (text) EKG shows a normal sinus rhythm with no acute changes. Assessment and Plan Plan: Assessment and plan #1 near syncope, rule out cardiac causes. Blood pressure at times in the 70s systolic. 118/60 this morning. No evidence of any tachycardia or bradycardia arrhythmias. #2 known history of coronary artery disease with prior bypass surgery and stent placements. #3 hypertension #4 hyperlipidemia # 5 sleep apnea #6 prior CVA #7History of depression #8 mild dehydration, creatinine 1.8 on admission. Plan We will continue to monitor orthostatic blood pressure and heart rate every shift. Encourage the patient to be up ambulating in the hallway today. Further recommendations to follow. Echo was done in the office just last week which revealed a normal left ventricular systolic function. DNP note has been reviewed, I agree with a documented findings and plan of care. Patient was seen and examined.
[2017-04-05 13:38] LABS: Anisocytosis Slight; Basophils % (A) 0 %; Eosinophils # (A) 0.1 k/uL (0-0.7); Eosinophils % (A) 2 %; HCT 36.7 % (39.0-53.0); HGB 10.9 gm/dL (13.0-17.5); Hypochromasia Marked; Lymphocytes # (A) 2.2 k/uL (1.0-4.8); Lymphocytes % (A) 43 %; MCH 24.3 pg (25.0-35.0); MCHC 29.7 g/dL (31.0-37.0); MCV 81.8 fL (80.0-100.0); Mean Platelet Volume 7.2; Monocytes # (A) 0.2 k/uL (0-1.0); Monocytes % (A) 4 %; Neutrophils # (A) 2.5 k/uL (1.3-7.7); Neutrophils % (A) 49 %; Platelet Count 239 k/uL (150-450); RBC 4.49 m/uL (4.30-5.90); RDW 16.7 % (11.5-15.5); WBC 5.2 k/uL (3.8-10.6)
[2017-04-05 13:57] LABS: ALT 27 U/L (21-72); AST 15 U/L (17-59); Albumin 3.2 g/dL (3.5-5.0); Alkaline Phosphatase 63 U/L (38-126); Anion Gap 7 mmol/L; Blood Urea Nitrogen 14 mg/dL (9-20); Calcium 8.4 mg/dL (8.4-10.2); Carbon Dioxide 25 mmol/L (22-30); Chloride 105 mmol/L (98-107); Glucose 117 mg/dL (74-99); Potassium 4.9 mmol/L (3.5-5.1); Sodium 137 mmol/L (137-145); Total Bilirubin 0.6 mg/dL (0.2-1.3); Total Protein 5.7 g/dL (6.3-8.2)
[2017-04-05] MEDS ORDERED: RX INFO: IV CONTRAST WAS GIVEN 1 EACH MISC MISCELLANE PRN (15:34)
--- NOTE | 2017-04-05 15:39 | P.HPIM ---
History of Present Illness H&P Date: 04/05/17 Chief Complaint: Vertigo near syncope This is a 51-year-old gentleman patient of Dr. Hernández/ Dr Vera. He has underlying history of CAD, CABG, previous CVA involving the occipital lobe, chronic tobacco use and cigar use, moderate alcohol consumption. His cardiac history are as follows:coronary artery disease multiple procedure including bypass grafting 2008 which is HOPKINS to the LAD and saphenous vein graft to the diagonal 1 saphenous vein graft to the diagonal 2 and saphenous vein graft to the obtuse marginal and right coronary artery. Patient also had heart cath with multiple angioplasty in the last a few years his last heart cath was in June 2014 which revealed patent saphenous vein graft to the obtuse marginal diagonal 1 and diagonal 2 patent LAD free of any atherosclerotic disease with atrophic HOPKINS to the LAD and patent saphenous vein graft to the obtuse marginal . August 2015, echocardiogram at that time showed ejection fraction of 50-55% inferoseptal LV wall motion hypokinesia mild aortic valve sclerosis without stenosis, no aortic regurgitation, mild MR and mild TR no pulmonary hypertension aortic root is normal no pericardial effusion at that time, most recent Lexiscan stress test 06/06/2016with no stress induced ischemia He presented to the emergency room secondary to near syncope with ashen color and diaphoresis, patient was worried as this is one of his worst attack, it has been occurring for the past 2-3 years, worse for the past 2 weeks there is no aura preceding this event symptoms are triggered by standing up and movement. patient did not pass out, he has several episodes of this, mainly with standing position and movement, however she mentions also that once in a while whenever he turns his head he would also have some vertiginous sensation. He had orthostatic vital signs performed which did not show any systolic drop, supine blood pressure was 106/64, sitting blood pressure was 100/76, standing blood pressure is 118/75, however he was hypertensive upon entry in the emergency room. There was no new medication changes by any of them cardiology saw the PCP , patient denies any neurologic deficits after this event, there is nausea related to this, and no vomiting no diarrhea symptoms has been going on for 2- 3 years, worse within the past 2 weeks patient has occasional headache, no diplopia, no motor deficits that are new. No GI symptoms including melena no hematochezia, EKG in emergency room shows normal sinus rhythm no QT prolongation, d-dimer was negative at 0.2, chest x-ray did not show any acute processes, no carotid Dopplers were done, no CT of the brain, blood pressure emergency room was 79/45 and another blood pressure 87/57 pulse ox between 96- 100% emergency room On my examination, patient was vertiginous with a positive Apley's maneuver unfortunately the 2 otoscope that was provided in selective floor is not working , we started the patient on meclizine, consulted physical therapy occupational therapy for canalith repositioning him a prednisone taper. Cardiology was consulted to evaluate for malignant arrhythmias Review of Systems Constitutional: Reports as per HPI, Denies anorexia, Denies chills, Denies chronic headaches, Denies chronic pain, Denies daytime sleepiness, Denies fatigue, Denies fever, Denies lethargy, Denies malaise, Denies night sweats, Denies poor appetite, Denies sweats, Denies weakness, Denies weight gain, Denies weight loss Ears, nose, mouth and throat: Reports as per HPI, Reports headache, Reports vertigo, Denies ant. neck pain, Denies bleeding gums, Denies dental pain, Denies dysphagia, Denies epistaxis, Denies hoarseness, Denies mouth pain, Denies nasal congestion, Denies nasal discharge, Denies neck fullness/pressure, Denies neck lump, Denies nose pain, Denies odynophagia, Denies post-nasal drip, Denies sinus pain, Denies sinus pressure, Denies swelling in mouth, Denies swelling in throat, Denies sore throat, Denies voice changes Cardiovascular: Reports as per HPI, Reports leg edema, Reports lightheadedness, Reports syncope Respiratory: Reports as per HPI, Denies congestion, Denies cough, Denies cough with sputum, Denies dyspnea, Denies excessive sputum, Denies hemoptysis, Denies home oxygen, Denies pain, Denies pain on inspiration, Denies pleurisy, Denies respiratory infections, Denies sleep apnea, Denies snoring, Denies wheezing Gastrointestinal: Reports as per HPI, Denies abdominal pain, Denies belching, Denies bloating, Denies BRBPR, Denies change in bowel habits, Denies coffee ground emesis, Denies constipation, Denies diarrhea, Denies dyspepsia, Denies early satiety, Denies excessive gas, Denies heartburn, Denies hematemesis, Denies hematochezia, Denies indigestion, Denies jaundice, Denies lactose intolerance, Denies loss of appetite, Denies melena, Denies nausea, Denies vomiting Genitourinary: Reports as per HPI, Denies decreased libido, Denies difficulties fathering child, Denies discharge, Denies dysuria, Denies erectile dysfunction, Denies flank pain, Denies genital pain, Denies genital sores, Denies hematuria, Denies impotence, Denies incontinence, Denies kidney stones, Denies nocturia, Denies polyuria, Denies testicular lump, Denies testicular pain, Denies urinary frequency, Denies urinary hesitancy, Denies urinary retention Musculoskeletal: Reports as per HPI, Denies arm numbness/tingling, Denies atrophy, Denies fractures, Denies frequent falls, Denies gait dysfunction, Denies hot joints, Denies leg numbness/tingling, Denies limitation of motion, Denies loss of height, Denies low back pain, Denies morning stiffness, Denies muscle cramps, Denies muscle weakness, Denies myalgias, Denies neck pain, Denies neck stiffness, Denies prior amputations, Denies redness of joints, Denies shooting arm pain, Denies shooting leg pain Integumentary: Reports as per HPI, Denies acne, Denies boils, Denies brittle nails, Denies change in hair/nails, Denies color changes, Denies darkening of skin, Denies depigmentation, Denies dryness, Denies foot/leg ulcers, Denies growths, Denies hirsutism, Denies lesions, Denies onychomycosis, Denies pruritus , Denies rash, Denies sores, Denies striae, Denies unusual bruising, Denies wounds Neurological: Reports as per HPI, Denies aphasia, Denies ataxia, Denies balance difficulties, Denies burning pain, Denies change in mentation, Denies change in smell/taste, Denies change in speech, Denies confusion, Denies convulsions, Denies double vision, Denies gait dysfunction, Denies head injury, Denies headaches, Denies hearing difficulties, Denies lack of coordination, Denies loss of vision, Denies memory loss, Denies migraines, Denies motor disturbance, Denies numbness, Denies paralysis, Denies paresthesias, Denies seizures, Denies sensory deficit, Denies spasticity, Denies syncope, Denies tic, Denies tingling , Denies transient paralysis, Denies tremors, Denies vertigo, Denies weakness, Denies visual changes Psychiatric: Reports as per HPI Endocrine: Reports as per HPI Hematologic/Lymphatic: Reports as per HPI Allergic/Immunologic: Reports as per HPI Past Medical History Past Medical History: Coronary Artery Disease (CAD), Chest Pain / Angina, CVA/ TIA, GI Bleed, Hyperlipidemia, Hypertension, Myocardial Infarction (AR), Pneumonia, Renal Disease Additional Past Medical History / Comment(s): 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 Last Myocardial Infarction Date:: 01-22-2011 History of Any Multi-Drug Resistant Organisms: None Reported Past Surgical History: Adenoidectomy, Cholecystectomy, Coronary Bypass/CABG, Heart Catheterization, Heart Catheterization With Stent, Hernia Repair Additional Past Surgical History / Comment(s): Several caths with last one done 07/02/14 treated medically, total 4 stents (states placed 01/2011), CABG 5 vessel in 2008 (stents came after open heart was done), EGD/colonoscopy, hemorrhoid banding, possible pain injections lower back-pt unsure. Past Anesthesia/Blood Transfusion Reactions: Previous Problems w/ Anesthesia Additional Past Anesthesia/Blood Transfusion Reaction / Comment(s): stated "wakes up slower than normal" Date of Last Stent Placement:: 01-22-2011 Past Psychological History: No Psychological Hx Reported Additional Psychological History / Comment(s): Pt states he has no current mental health disease. He states he had suicidal thoughts yrs ago at age 43, immediately following CABG in 2008 due to drastic lifestyle changes and being told he could no longer work. was admitted to psych but no longer has depression or thoughts of suicide sought counseling and is no longer having such thoughts. He resides with family. He is independent. He has a driver starting gate's license but does not like to drive-he rides his bike. Smoking Status: Light tobacco smoker Past Alcohol Use History: Occasional Additional Past Alcohol Use History / Comment(s): started smoking age 15 never more than 1/2 ppd and later in life took up cigars (one per week at most). quit in oct 2012. may have a drink AND CIGAR once a week or less. Past Drug Use History: Marijuana Additional Drug Use History / Comment(s): as teenager into occ smoked marijuana NOW seldom - Past Family History Father Family Medical History: Coronary Artery Disease (CAD) Additional Family Medical History / Comment(s): dad is 75. stents, bypass, prostate and lung cancer. Mother Additional Family Medical History / Comment(s): mom 1997 at age 59- brain aneurysm Medications and Allergies Home Medications Medication Instructions Recorded Confirmed Type Atorvastatin [Lipitor] 80 mg PO HS 06/25/13 04/04/17 History HYDROcodone/APAP 10-325MG [[place] 1 tab PO BID PRN 06/25/13 04/04/17 History 10-325] Metoprolol Tartrate [Lopressor] 50 mg PO BID 06/25/13 04/04/17 History Nitroglycerin Sl Tabs [Nitrostat] 0.4 mg SUBLINGUAL Q5M PRN 06/25/13 04/04/17 History Ranolazine [Ranexa] 1,000 mg PO BID 09/23/13 04/04/17 History Pantoprazole Sodium [Protonix] 40 mg PO DAILY 07/02/14 04/04/17 History Spironolactone [Aldactone] 25 mg PO DAILY 06/19/15 04/04/17 History Isosorbide Mononitrate ER [Imdur] 120 mg PO BID 10/13/15 04/04/17 History Aspirin [Adult Low Dose Aspirin EC] 81 mg PO HS 01/11/16 04/04/17 History Enalapril [Vasotec] 20 mg PO BID 04/04/17 04/04/17 History Lactulose 20 gm PO BID PRN 04/04/17 04/04/17 History Phentermine HCl [Adipex-P] 37.5 mg PO DAILY 04/04/17 04/04/17 History Allergies Allergy/AdvReac Type Severity Reaction Status Date / Time chocolate flavor Allergy Rash/Hives Verified 04/04/17 12:21 [place] And Derivatives Allergy Rash/Hives Verified 04/04/17 12:21 [[place]] Physical Exam Vitals: Vital Signs Temp Pulse Pulse Pulse Resp BP BP 04/05/17 08:00 96.8 F L 60 16 04/05/17 04:33 100/76 04/05/17 04:20 55 L 18 04/05/17 04:15 96.5 F L 60 18 04/05/17 00:10 97.7 F 61 18 04/04/17 20:20 97.3 F L 69 18 04/04/17 17:05 97.1 F L 65 18 121/73 04/04/17 16:11 60 16 101/65 04/04/17 16:00 96.8 F L 57 L 58 L 16 04/04/17 15:25 58 L 15 102/55 04/04/17 14:59 66 16 91/54 04/04/17 14:30 64 93/53 04/04/17 13:50 66 86/53 04/04/17 13:20 69 18 87/52 04/04/17 12:46 76 79/45 04/04/17 12:04 97.5 F L 77 18 102/52 BP BP BP Pulse Ox 04/05/17 08:00 113/77 95 04/05/17 04:33 107/68 106/64 04/05/17 04:20 04/05/17 04:15 118/69 96 04/05/17 00:10 113/77 96 04/04/17 20:20 117/77 99 04/04/17 17:05 99 04/04/17 16:11 97 04/04/17 16:00 112/78 100 04/04/17 15:25 96 04/04/17 14:59 99 04/04/17 14:30 100 04/04/17 13:50 98 04/04/17 13:20 96 04/04/17 12:46 96 04/04/17 12:04 100 Intake and Output 04/04/17 04/05/17 04/05/17 22:59 06:59 14:59 Intake Total 260 855 900 Output Total 350 Balance 260 855 550 Intake: Intake, IV Titration 20 375 900 Amount Sodium Chloride 0.9% 1, 375 900 000 ml @ 75 mls/hr IV . [id number] EDWARDO Rx#:[id number] Sodium Chloride 0.9% 1, 20 000 ml @ 999 mls/hr IV . Q1H1M STA Rx#:[id number] Oral 240 480 Output: Urine 350 Other: Voiding Method Toilet Toilet Urinal Urinal # Voids 1 Weight 120.202 kg 122.3 kg - Constitutional General appearance: cooperative, no acute distress, obese - EENT Eyes: anicteric sclerae, EOMI, PERRLA, dentition normal, normal appearance ENT: hearing grossly normal, NA/AT, normal oropharynx - Neck Neck: normal ROM - Respiratory Respiratory: bilateral: CTA, negative: diminished, dullness, rales, rhonchi - Cardiovascular Rhythm: regular Heart sounds: normal: S1, S2 Abnormal Heart Sounds: no systolic murmur, no diastolic murmur, no rub, no S3 Gallop, no S4 Gallop, no click, no other - Gastrointestinal General gastrointestinal: normal bowel sounds, soft - Integumentary Integumentary: decreased turgor, normal - Neurologic Neurologic: CNII-XII intact - Musculoskeletal Musculoskeletal: gait normal, strength equal bilaterally - Psychiatric Psychiatric: A&O x's 3, appropriate affect Results CBC & Chem 7: 04/05/17 13:13 04/05/17 13:13 Labs: Abnormal Lab Results - Last 24 Hours (Table) 04/04/17 04/04/17 04/04/17 Range/Units 12:08 12:08 12:08 Hgb 11.1 L (13.0-17.5) gm/dL Hct 36.2 L (39.0-53.0) % MCH 24.4 L (25.0-35.0) pg MCHC 30.5 L (31.0-37.0) g/dL RDW 16.5 H (11.5-15.5) % Carbon Dioxide 20 L (22-30) mmol/L Creatinine 1.87 H (0.66-1.25) mg/dL Glucose 158 H (74-99) mg/dL Calcium 8.3 L (8.4-10.2) mg/dL Total Creatine Kinase 45 L (55-170) U/L Total Protein 6.1 L (6.3-8.2) g/dL Albumin 3.3 L (3.5-5.0) g/dL HDL Cholesterol (40-60) mg/dL 04/04/17 04/04/17 04/04/17 Range/Units 12:08 17:58 23:21 Hgb (13.0-17.5) gm/dL Hct (39.0-53.0) % MCH (25.0-35.0) pg MCHC (31.0-37.0) g/dL RDW (11.5-15.5) % Carbon Dioxide (22-30) mmol/L Creatinine (0.66-1.25) mg/dL Glucose (74-99) mg/dL Calcium (8.4-10.2) mg/dL Total Creatine Kinase 43 L 43 L (55-170) U/L Total Protein (6.3-8.2) g/dL Albumin (3.5-5.0) g/dL HDL Cholesterol 38 L (40-60) mg/dL Laboratory Results WBC 7.1 k/uL (3.8-10.6) 04/04/17 12:08 RBC 4.53 m/uL (4.30-5.90) 04/04/17 12:08 Hgb 11.1 gm/dL (13.0-17.5) L 04/04/17 12:08 Hct 36.2 % (39.0-53.0) L 04/04/17 12:08 MCV 80.0 fL (80.0-100.0) 04/04/17 12:08 MCH 24.4 pg (25.0-35.0) L 04/04/17 12:08 MCHC 30.5 g/dL (31.0-37.0) L 04/04/17 12:08 RDW 16.5 % (11.5-15.5) H 04/04/17 12:08 Plt Count 278 k/uL (150-450) 04/04/17 12:08 Neutrophils % 75 % 04/04/17 12:08 Lymphocytes % 20 % 04/04/17 12:08 Monocytes % 3 % 04/04/17 12:08 Eosinophils % 1 % 04/04/17 12:08 Basophils % 0 % 04/04/17 12:08 Neutrophils # 5.3 k/uL (1.3-7.7) 04/04/17 12:08 Lymphocytes # 1.4 k/uL (1.0-4.8) 04/04/17 12:08 Monocytes # 0.2 k/uL (0-1.0) 04/04/17 12:08 Eosinophils # 0.0 k/uL (0-0.7) 04/04/17 12:08 Basophils # 0.0 k/uL (0-0.2) 04/04/17 12:08 Hypochromasia Marked 04/04/17 12:08 Anisocytosis Slight 04/04/17 12:08 D-Dimer 0.20 mg/L FEU (<0.60) 04/04/17 12:08 Sodium 139 mmol/L (137-145) 04/04/17 12:08 Potassium 5.0 mmol/L (3.5-5.1) 04/04/17 12:08 Chloride 107 mmol/L (98-107) 04/04/17 12:08 Carbon Dioxide 20 mmol/L (22-30) L 04/04/17 12:08 Anion Gap 12 mmol/L 04/04/17 12:08 BUN 15 mg/dL (9-20) 04/04/17 12:08 Creatinine 1.87 mg/dL (0.66-1.25) H 04/04/17 12:08 Est GFR (MDRD) Af Amer 47 (>60 ml/min/1.73 sqM) 04/04/17 12:08 Est GFR (MDRD) Non-Af 38 (>60 ml/min/1.73 sqM) 04/04/17 12:08 Glucose 158 mg/dL (74-99) H 04/04/17 12:08 Calcium 8.3 mg/dL (8.4-10.2) L 04/04/17 12:08 Phosphorus 3.0 mg/dL (2.5-4.5) 04/04/17 12:08 Magnesium 1.7 mg/dL (1.6-2.3) 04/04/17 12:08 Total Bilirubin 0.9 mg/dL (0.2-1.3) 04/04/17 12:08 AST 19 U/L (17-59) 04/04/17 12:08 ALT 31 U/L (21-72) 04/04/17 12:08 Alkaline Phosphatase 70 U/L (38-126) 04/04/17 12:08 Total Creatine Kinase 43 U/L (55-170) L 04/04/17 23:21 CK-MB (CK-2) 0.6 ng/mL (0.0-2.4) 04/04/17 23:21 CK-MB (CK-2) Rel Index 1.4 04/04/17 23:21 Troponin I <0.012 ng/mL (0.000-0.034) 04/04/17 23:21 Total Protein 6.1 g/dL (6.3-8.2) L 04/04/17 12:08 Albumin 3.3 g/dL (3.5-5.0) L 04/04/17 12:08 Triglycerides 91 mg/dL (<150) 04/04/17 12:08 Cholesterol 99 mg/dL (<200) 04/04/17 12:08 LDL Cholesterol, Calc 43 mg/dL (0-99) 04/04/17 12:08 HDL Cholesterol 38 mg/dL (40-60) L 04/04/17 12:08 Thrombosis Risk Factor Assmnt - DVT/VTE Prophylaxis DVT/VTE Prophylaxis: Low risk, early ambulation encouraged - Choose All That Apply Any of the Below Risk Factors Present?: Yes Each Factor Represents 1 point: Obesity (BMI >25) Other Risk Factors: No Thrombosis Risk Factor Assessment Total Risk Factor Score: 1 Thrombosis Risk Factor Assessment Level: Low Risk Assessment and Plan Plan: 1. Presyncope associated with hypotension present on ER admission, the lower systolic blood pressure 79, patient requires IV hydration,, continue to monitor for malignant arrhythmias, continue to surveillance for orthostasis, patient's exam significant for benign positional vertigo with positive Diana's maneuver, unfortunately orthoscopic examination it is not available as 2 orthoscope were malfunctioning, patient started on meclizine prednisone and physical therapy. Imdur 120 mg twice a day has been held secondary to low blood pressure spironolactone was held 2. Benign paroxysmal positional vertigo, therapy will be seeing the patient, with canalith repositioning, prednisone taper, and meclizine we will determine with a better orthoscope for examination, patient will need a full workup as an outpatient including an MRI of the internal auditory canal should there be a negative orthoscopic examination in the morning. CAT scan of the brain and carotid Dopplers are ordered admission 3. CAD with prior bypass surgery and cardiac stents, cardiology is following, we'll decrease the beta zac to 25 mg twice a day,, continue on spironolactone were changes made via cardiology is following recent stress test August 2016 unremarkable 4 COPD without exacerbation will use albuterol when necessary 5. Acute renal sufficiency CK D stage III, present prior to admission, secondary to ATN and hypotension, nephrotoxins will be avoided, hypotension would be avoided, labs will be monitored, we'll going to avoid contrast studies during this admission secondary to recent recent renal insult, ct of the brain no contrast 6 cardiomyopathy: With multiple coronary artery disease, he is currently on Ranexa Aldactone Imdur. enalapril will be decreased to 10 mg twice a day secondary to low BPs during these current hospital stay. Patient is asymptomatic with the systolic blood pressure of 100 7 hypertension: We'll decrease metoprolol 50 mg twice a day to 25 mg twice a day Imdur currently on hold, along with spironolactone 25 mg daily 8 hyperlipidemia: On atorvastatin 80 mg daily. 9 Impaired random blood sugars in the past, hemoglobin A1c will be obtained, 10recurrent gastritis and GERD: Patient is on Protonix 40 mg daily. 11 recurrent history of angina Has been on Ranexa 1000 mg twice a day i and spironolactone and Imdur currently on hold. 12 chronic tobacco use patient was counseled regarding ill effects of tobacco to include irreversible damage caused by CVA carcinogenic mutations to genes besides cardiopulmonary destructive damages caused by smoking 13 GI prophylaxis: Has been on Protonix continue medication. Expected length of stay 2 nights
[2017-04-05] MEDS: MECLIZINE 25 MG TAB PO SCH ×2 (15:43→20:10)
[2017-04-05] MEDS: predniSONE 50 MG TAB PO SCH (15:44)
--- NOTE | 2017-04-05 16:30 | EEG ---
ELECTROENCEPHALOGRAM REPORT DATE OF EE04/05/2017. REFERRING PHYSICIAN: Dr. Davies. CONSULTING INTERPRETING PHYSICIAN: Dr. Siri Jernigan MD ELECTROENCEPHALOGRAPHIC EXAMINATION REPORT: INDICATION FOR EXAMINATION: This patient is a 51-year-old male being evaluated for acute syncopal episode and collapse. AGE: 51. EEG FINDINGS: A routine 21 channel awake digital EEG recording was accomplished utilizing the 10-20 international system with bipolar and referential montages. The background activity in the most alert resting state consists of a low to medium amplitude fairly well developed and well sustained 7-8 Hz activity over the posterior head regions. This posterior rhythm attenuates to eye opening. There is a small amount of low amplitude 18-20 Hz beta activity seen maximally over the anterior head regions. Muscle and movement artifact was observed on a few occasions during the tracing. Hyperventilation was not performed. Photic stimulation at flash frequencies of 2-30 Hz produced a good symmetrical occipital driving response. No epileptiform discharges were seen. IMPRESSION: This EEG is within normal limits for the patient's age. The EEG failed to reveal any focal, lateralized, or epileptiform abnormalities. Clinical correlation is recommended. MMODL / IJN: [id number] /
--- NOTE | 2017-04-05 17:41 | CT ---
EXAMINATION TYPE: CT brain wo con DATE OF EXAM: 04/05/2017 COMPARISON: NONE HISTORY: 03/25/2013 CT DLP: 1121 mGycm Automated exposure control for dose reduction was used. FINDINGS: Ventricles have normal size. There is no mass effect nor midline shift. There is no sign of intracran ial hemorrhage. There is 5 mm hypodense area in the right caudate nucleus. The calvarium is intact. IMPRESSION: OLD RIGHT SIDE CAUDATE NUCLEUS SMALL LACUNAR INFARCT. NO ACUTE INTRACRANIAL ABNORMALITY. NO CHANGE.
--- NOTE | 2017-04-05 18:02 | US ---
EXAMINATION TYPE: US carotid duplex BILAT DATE OF EXAM: 04/05/2017 COMPARISON: NONE CLINICAL HISTORY: vertigo. dizziness EXAM MEASUREMENTS: RIGHT: Peak Systolic Velocity (PSV) cm/sec ----- Right CCA: 98.6 ----- Right ICA: 91.1 ----- Right ECA: 106.4 ICA/CCA ratio: 0.9 RIGHT: End Diastole cm/sec ----- Right CCA: 26.9 ----- Right ICA: 30.7 ----- Right ECA: 19.2 LEFT: Peak Systolic Velocity (PSV) cm/sec ----- Left CCA: 94.7 ----- Left ICA: 106.6 ----- Left ECA: 84.2 ICA/CCA ratio: 1.1 LEFT: End Diastole cm/sec ----- Left CCA: 33.9 ----- Left ICA: 37.8 ----- Left ECA: 84.2 VERTEBRALS (direction of flow): Right Vertebral: antegrade Left Vertebral: antegrade Rhythm: normal No elevated velocities IMPRESSION: There is antegrade flow in the vertebral arteries. The images and measurements suggest c lose to 0% stenosis in both internal carotid arteries. Criteria for Assigning % of Stenosis / Diameter reduction (Estimation based on the indirect measurements of the internal carotid artery velocities (ICA PSV). 1. Normal (no stenosis)=ICA PSV < 125 cm/s: ratio < 2.0: ICA EDV<40 cm/s. 2. Less than 50% stenosis=ICA PSV < 125 cm/s: ratio < 2.0: ICA EDV<40 cm/s. 3. 50 to 69% stenosis=ICA PSV of 125 to 230 cm/s: ration 2.0 ? 4.0: ICA EDV 40-100 cm/s. 4. Greater than 70% stenosis to near occlusion= ICA PSV > 230 cm/s: ratio > 4.0: ICA EDV > 100 cm/s. 5. Near occlusion= ICA PSV velocities may be low or undetectable: variable ratio and ICA EDV. 6. Total occlusion=unable to detect flow.
[2017-04-05] MEDS: ATORVASTATIN 80 MG TAB PO SCH (20:09)
[2017-04-05] MEDS: ASPIRIN 81 MG PO SCH (20:10)
[2017-04-05] MEDS: METOPROLOL TARTRATE 25 MG TAB PO SCH (20:18)
[2017-04-05] MEDS ORDERED: ACETYLCYSTEINE 800 MG/4 ML VIAL PO SCH (21:00)
[2017-04-06 02:30] LABS: Hemoglobin A1C 6.2 % (4.0-6.0)
[2017-04-06 05:46] LABS: Anisocytosis Slight; Basophils % (A) 0 %; Eosinophils % (A) 0 %; HCT 39.3 % (39.0-53.0); HGB 11.8 gm/dL (13.0-17.5); Hypochromasia Marked; Lymphocytes % (A) 10 %; MCH 24.2 pg (25.0-35.0); MCHC 30.1 g/dL (31.0-37.0); MCV 80.5 fL (80.0-100.0); Mean Platelet Volume 7.1; Monocytes # (A) 0.2 k/uL (0-1.0); Monocytes % (A) 2 %; Neutrophils # (A) 8.3 k/uL (1.3-7.7); Neutrophils % (A) 87 %; Platelet Count 257 k/uL (150-450); RBC 4.88 m/uL (4.30-5.90); RDW 16.5 % (11.5-15.5); WBC 9.6 k/uL (3.8-10.6)
[2017-04-06 05:58] LABS: ALT 23 U/L (21-72); AST 17 U/L (17-59); Albumin 3.4 g/dL (3.5-5.0); Alkaline Phosphatase 70 U/L (38-126); Anion Gap 8 mmol/L; Blood Urea Nitrogen 14 mg/dL (9-20); Calcium 9.3 mg/dL (8.4-10.2); Carbon Dioxide 25 mmol/L (22-30); Chloride 103 mmol/L (98-107); Glucose 156 mg/dL (74-99); Potassium 5.2 mmol/L (3.5-5.1); Sodium 136 mmol/L (137-145); Total Bilirubin 0.4 mg/dL (0.2-1.3); Total Protein 6.1 g/dL (6.3-8.2)
[2017-04-06] MEDS: PATIENT'S OWN MED (Phentermine Hcl [Adipex-P] 37.5 MG) PO SCH (07:00)
[2017-04-06] MEDS: PANTOPRAZOLE 40 MG TABLET PO SCH (07:07)
[2017-04-06] MEDS: RANOLAZINE 500 MG TAB.ER.12H PO SCH (07:48)
[2017-04-06] MEDS: MECLIZINE 25 MG TAB PO SCH ×2 (07:48→15:54)
[2017-04-06] MEDS: predniSONE 50 MG TAB PO SCH (07:49)
[2017-04-06] MEDS: METOPROLOL TARTRATE 25 MG TAB PO SCH (07:49)
[2017-04-06] MEDS ORDERED: HYDROCHLOROTHIAZIDE 12.5 MG CAP PO STA (09:55)
--- NOTE | 2017-04-06 12:28 | P.PN ---
Subjective Progress Note Date: 04/06/17 This is a 51-year-old gentleman who used to follow with RAFAEL Ren in the office, he now sees Dr. Jorgensen. He has a known history of coronary artery disease with prior bypass surgery in 2008, multiple stent placements, hypertension, hyperlipidemia, prior CVA, sleep apnea, GERD, renal insufficiency , he just recently had an echocardiogram with Doppler study performed in the office one week ago which revealed an ejection fraction of 50%, hypokinesia of the inferior and septal lindsey noted at the base. The patient states she's been doing fairly well, he has not been having any angina, he states that he presented to the hospital on this occasion with symptoms of lightheadedness and near syncope. He states that he has been noting himself to be lightheaded off and on for the past couple of weeks. He states that the lightheadedness came on , and he felt as though he may pass out so he leaned up against a wall. Symptoms persisted so he sat himself down onto the ground. People that were there with him as stated that he became ashen in color, there was a nurse at [facility], who came to assess him, states that he was clammy and cool, blood pressure was noted to be quite low as was his heart rate. For this reason he was brought to the emergency room for further evaluation. Blood pressure on arrival here 102/50, heart rate in the 70s. Blood pressure here did go down into the 70s at times, 118/70 now. Heart rate in the 50s. White blood cell count 7.1, hemoglobin 11.1, platelet count 78. Sodium 139, potassium 5.0, BUN 15, creatinine 1.8. Troponins are negative 3. At the time of my examination this morning, patient feels well, denies any lightheadedness or dizziness. No chest discomfort. D-dimer was also negative at 0.2. EKG on arrival here shows normal sinus rhythm. Chest x-ray reveals stable borderline heart size. No definite acute process. 04/06/2017 Patient seen and examined this morning, feeling stronger, still complains of feeling tired. I pressure 128/80, heart rate in the 70s. Orthostatics were negative. Purvi today 1.4, potassium 5.2. We will give the patient one dose of hydrochlorothiazide, recheck potassium in the afternoon, if stable he may be able to be discharged from cardiology's perspective, follow-up appointment will be made with Dr. Jorgensen in the office post discharge. Objective - Vital Signs Vital signs: Vital Signs Temp 97.3 F L 04/06/17 11:10 Pulse 71 04/06/17 11:10 Resp 20 04/06/17 11:10 BP 129/86 04/06/17 11:10 Pulse Ox 97 04/06/17 11:10 Intake & Output 04/05/17 04/06/17 04/06/17 18:59 06:59 18:59 Intake Total 1560 780 612 Output Total 650 300 350 Balance 910 480 262 Weight 122.7 kg Intake: Intake, IV Titration 900 300 375 Amount Sodium Chloride 0.9% 1, 900 300 375 000 ml @ 75 mls/hr IV . [id number] EDWARDO Rx#:[id number] Oral 660 480 237 Output: Urine 650 300 350 Other: Voiding Method Toilet Urinal Urinal Urinal # Voids 1 1 1 - Exam PHYSICAL EXAMINATION: HEENT: Head is atraumatic, normocephalic. Pupils equal, round. Neck is supple. There is no elevated jugular venous pressure. HEART EXAMINATION: Heart S1, S2 normal. No murmur or gallop heard. CHEST EXAMINATION: Lungs are clear to auscultation and precussion. No chest wall tenderness is noted on palpation or with deep breathing. ABDOMEN: Soft, nontender. Bowel sounds are heard. No organomegaly noted. EXTREMITIES: 2+ peripheral pulses with no evidence of peripheral edema and no calf tenderness noted. NEUROLOGIC patient is awake, alert and oriented -3. . - Labs CBC & Chem 7: 04/06/17 05:22 04/06/17 05:22 Labs: Abnormal Lab Results - Last 24 Hours (Table) 04/05/17 04/05/17 04/05/17 Range/Units 13:13 13:13 13:13 Hgb 10.9 L (13.0-17.5) gm/dL Hct 36.7 L (39.0-53.0) % MCH 24.3 L (25.0-35.0) pg MCHC 29.7 L (31.0-37.0) g/dL RDW 16.7 H (11.5-15.5) % Neutrophils # (1.3-7.7) k/uL Sodium (137-145) mmol/L Potassium (3.5-5.1) mmol/L Creatinine 1.49 H (0.66-1.25) mg/dL Glucose 117 H (74-99) mg/dL Hemoglobin A1c 6.2 H (4.0-6.0) % AST 15 L (17-59) U/L Total Protein 5.7 L (6.3-8.2) g/dL Albumin 3.2 L (3.5-5.0) g/dL 04/06/17 04/06/17 Range/Units 05:22 05:22 Hgb 11.8 L (13.0-17.5) gm/dL Hct (39.0-53.0) % MCH 24.2 L (25.0-35.0) pg MCHC 30.1 L (31.0-37.0) g/dL RDW 16.5 H (11.5-15.5) % Neutrophils # 8.3 H (1.3-7.7) k/uL Sodium 136 L (137-145) mmol/L Potassium 5.2 H (3.5-5.1) mmol/L Creatinine 1.40 H (0.66-1.25) mg/dL Glucose 156 H (74-99) mg/dL Hemoglobin A1c (4.0-6.0) % AST (17-59) U/L Total Protein 6.1 L (6.3-8.2) g/dL Albumin 3.4 L (3.5-5.0) g/dL Assessment and Plan Plan: Assessment and plan #1 near syncope, rule out cardiac causes. Blood pressure at times in the 70s systolic. 118/60 this morning. No evidence of any tachycardia or bradycardia arrhythmias. #2 known history of coronary artery disease with prior bypass surgery and stent placements. #3 hypertension #4 hyperlipidemia # 5 sleep apnea #6 prior CVA #7History of depression #8 mild dehydration, creatinine 1.8 on admission. Plan We will give the patient one time dose of hydrochlorothiazide. Check repeat potassium in the afternoon, if stable he may be able to be discharged home and follow-up with Dr. Jorgensen in the office. DNP note has been reviewed, I agree with a documented findings and plan of care. Patient was seen and examined.
[2017-04-06 15:59] VITALS: BP 124/82; PULSE 72; RESP 18; TEMP 97.1
--- NOTE | 2017-04-07 08:14 | P.DS ---
Providers Date of admission: 04/04/17 15:25 Expected date of discharge: 04/06/17 Attending physician: Laura Davies MD Consults: 04/04/17 15:25 Consult Physician Urgent Consulting Provider: Freda Jorgensen Consult Reason/Comments: hypoTN Do you want consulting provider notified?: Yes Primary care physician: Sharron Hernández [facility] Course: This is a 51-year-old gentleman patient of Dr. Hernández/ Dr Vera. He has underlying history of CAD, CABG, previous CVA involving the occipital lobe, chronic tobacco use and cigar use, moderate alcohol consumption. His cardiac history are as follows:coronary artery disease multiple procedure including bypass grafting 2008 which is HOPKINS to the LAD and saphenous vein graft to the diagonal 1 saphenous vein graft to the diagonal 2 and saphenous vein graft to the obtuse marginal and right coronary artery. Patient also had heart cath with multiple angioplasty in the last a few years his last heart cath was in June 2014 which revealed patent saphenous vein graft to the obtuse marginal diagonal 1 and diagonal 2 patent LAD free of any atherosclerotic disease with atrophic HOPKINS to the LAD and patent saphenous vein graft to the obtuse marginal . August 2015, echocardiogram at that time showed ejection fraction of 50-55% inferoseptal LV wall motion hypokinesia mild aortic valve sclerosis without stenosis, no aortic regurgitation, mild MR and mild TR no pulmonary hypertension aortic root is normal no pericardial effusion at that time, most recent Lexiscan stress test 06/06/2016with no stress induced ischemia He presented to the emergency room secondary to near syncope with ashen color and diaphoresis, patient was worried as this is one of his worst attack, it has been occurring for the past 2-3 years, worse for the past 2 weeks there is no aura preceding this event symptoms are triggered by standing up and movement. patient did not pass out, he has several episodes of this, mainly with standing position and movement, however she mentions also that once in a while whenever he turns his head he would also have some vertiginous sensation. He had orthostatic vital signs performed which did not show any systolic drop, supine blood pressure was 106/64, sitting blood pressure was 100/76, standing blood pressure is 118/75, however he was hypertensive upon entry in the emergency room. There was no new medication changes by any of them cardiology saw the PCP , patient denies any neurologic deficits after this event, there is nausea related to this, and no vomiting no diarrhea symptoms has been going on for 2- 3 years, worse within the past 2 weeks patient has occasional headache, no diplopia, no motor deficits that are new. No GI symptoms including melena no hematochezia, EKG in emergency room shows normal sinus rhythm no QT prolongation, d-dimer was negative at 0.2, chest x-ray did not show any acute processes, no carotid Dopplers were done, no CT of the brain, blood pressure emergency room was 79/45 and another blood pressure 87/57 pulse ox between 96- 100% emergency room On my examination, patient was vertiginous with a positive Apley's maneuver unfortunately the 2 otoscope that was provided in selective floor is not working , we started the patient on meclizine, consulted physical therapy occupational therapy for canalith repositioning him a prednisone taper. Cardiology was consulted to evaluate for malignant arrhythmias 04/06: Patient underwent a CAT scan of the brain that showed old right side caudate nucleus small lacunar infarct. No acute intracranial abnormality. No change. Carotid ultrasound did not show any hemodynamically significant stenosis. Patient has been seen by cardiology with recommendations to monitor orthostatic blood pressure and heart rate each shift. Patient had an echocardiogram done last week in the office that revealed a normal LV systolic function. Orthostatic vital signs at been negative. Pulse ox is 96% on room air. Patient has been afebrile. Heart rate is running in the 60s. Patient was started on Antivert yesterday and prednisone orally. Patient states that he still feels a little lightheaded sometimes with movement and sometimes it's consistently. Cardiology has ordered 1 dose of hydrochlorothiazide and recheck potassium this afternoon which came back at 4.8 versus 5. 2 in the morning. Patient will be discharged home today in stable condition. Discussed follow-up with ENT regarding benign proximal positional vertigo versus vestibular neuritis. Prednisone will be discontinued. Discharge diagnoses: 1. Presyncope associated with hypotension present on ER admission, the lower systolic blood pressure 2. Benign paroxysmal positional vertigo 3. CAD with prior bypass surgery and cardiac stents 4 COPD without exacerbation 5. Acute renal sufficiency CkD stage III 6 cardiomyopathy 7 hypertension 8 hyperlipidemia 9 Impaired random blood sugars in the past, hemoglobin A1c 10recurrent gastritis and GERD 11 recurrent history of angina 12 chronic tobacco use Discharge plan: Return home Impression and plan of care have been directed as dictated by the signing physician. Karissa Moncada nurse practitioner acting as scribe for signing physician. Patient Condition at Discharge: Good Plan - Discharge Summary Discharge Rx Participant: No New Discharge Prescriptions: New Meclizine [Antivert] 25 mg PO TID #90 tab Continue Nitroglycerin Sl Tabs [Nitrostat] 0.4 mg SUBLINGUAL Q5M PRN PRN Reason: Chest Pain HYDROcodone/APAP 10-325MG [[place] 10-325] 1 tab PO BID PRN PRN Reason: Pain Atorvastatin [Lipitor] 80 mg PO HS Metoprolol Tartrate [Lopressor] 50 mg PO BID Ranolazine [Ranexa] 1,000 mg PO BID Pantoprazole Sodium [Protonix] 40 mg PO DAILY Isosorbide Mononitrate ER [Imdur] 120 mg PO BID Aspirin [Adult Low Dose Aspirin EC] 81 mg PO HS Phentermine HCl [Adipex-P] 37.5 mg PO DAILY Lactulose 20 gm PO BID PRN PRN Reason: Constipation Discontinued Spironolactone [Aldactone] 25 mg PO DAILY Enalapril [Vasotec] 20 mg PO BID Discharge Medication List Atorvastatin [Lipitor] 80 mg PO HS 06/25/13 [History] HYDROcodone/APAP 10-325MG [[place] 10-325] 1 tab PO BID PRN 06/25/13 [History] Metoprolol Tartrate [Lopressor] 50 mg PO BID 06/25/13 [History] Nitroglycerin Sl Tabs [Nitrostat] 0.4 mg SUBLINGUAL Q5M PRN 06/25/13 [History] Ranolazine [Ranexa] 1,000 mg PO BID 09/23/13 [History] Pantoprazole Sodium [Protonix] 40 mg PO DAILY 07/02/14 [History] Isosorbide Mononitrate ER [Imdur] 120 mg PO BID 10/13/15 [History] Aspirin [Adult Low Dose Aspirin EC] 81 mg PO HS 01/11/16 [History] Lactulose 20 gm PO BID PRN 04/04/17 [History] Phentermine HCl [Adipex-P] 37.5 mg PO DAILY 04/04/17 [History] Meclizine [Antivert] 25 mg PO TID #90 tab 04/06/17 [Rx] Follow up Appointment(s)/Referral(s): Freda Jorgensen MD [STAFF PHYSICIAN] - 3 Weeks (Spoke to office assistant receptionist. Office will call with appointment time.) Sharron Hernández MD [Primary Care Provider] - 04/11/17 3:00 pm (Monday) Jose Francisco Anderson MD [STAFF PHYSICIAN] - 04/18/17 1:00 pm (Sinus and vertigo issues.) Patient Instructions/Handouts: Vertigo (DC), Syncope (DC) Activity/Diet/Wound Care/Special Instructions: Meclizine as needed for dizziness. Discharge Disposition: HOME SELF-CARE
== END 2017-04-06 20:07 | disposition home or self-care (01) | DRG 312 ==
LOC: EC 12:03 → 6SEL 15:25
PROVIDERS: ADMIT Internal Medicine; ATTEND Internal Medicine
DX: R55 Syncope and collapse (principal); I42.9 Cardiomyopathy, unspecified; N17.9 Acute kidney failure, unspecified; I08.3 Combined rheumatic disorders of mitral, aortic and tricuspid valves; N18.3 Chronic kidney disease, stage 3 (moderate); E78.5 Hyperlipidemia, unspecified; E86.0 Dehydration; F17.200 Nicotine dependence, unspecified, uncomplicated; F32.9 Major depressive disorder, single episode, unspecified; G47.30 Sleep apnea, unspecified; H81.10 Benign paroxysmal vertigo, unspecified ear; I12.9 Hypertensive chronic kidney disease with stage 1 through stage 4 chronic kidney disease, or unspecified chronic kidney disease; I25.10 Atherosclerotic heart disease of native coronary artery without angina pectoris; I25.2 Old myocardial infarction; J44.9 Chronic obstructive pulmonary disease, unspecified; K21.9 Gastro-esophageal reflux disease without esophagitis; K29.70 Gastritis, unspecified, without bleeding; Z79.82 Long term (current) use of aspirin; Z79.899 Other long term (current) drug therapy; Z80.1 Family history of malignant neoplasm of trachea, bronchus and lung; Z82.49 Family history of ischemic heart disease and other diseases of the circulatory system; Z86.73 Personal history of transient ischemic attack (TIA), and cerebral infarction without residual deficits; Z87.442 Personal history of urinary calculi; Z95.1 Presence of aortocoronary bypass graft; Z95.5 Presence of coronary angioplasty implant and graft
CPT/HCPCS: 36415; 70450; 71046; 80053; 80061; 82533; 82550; 82553; 83036; 83735; 84100; 84132; 84484; 85025; 85379; 93005; 93880; 95819; 96360; 96361; 99285

== ENCOUNTER 2017-08-11 12:13 | Emergency (ER) | payer MEDICARE, OTHER ==
--- NOTE | 2017-08-11 12:48 | ED ---
General Adult HPI - General Chief complaint: Shortness of Breath Stated complaint: SOB, DIZZINESS, HAS HEART Hx Time Seen by Provider: 08/11/17 12:15 Source: patient, RN notes reviewed Mode of arrival: wheelchair Limitations: no limitations - History of Present Illness Initial comments: This is a 51-year-old male who presents emergency Department complaining of feeling is always going to pass out. Patient states last couple of days he's been lightheaded but today he went out to mow his lawn and he felt like he was given a passout. Patient states he never did pass out. Patient states he has a history of 5 way bypass. Patient states today he had no chest pain no palpitations no shortness of breath or difficulty breathing. Patient states she 's not been ill recently and denies any recent fever chills or cough. Patient denies any headache patient denies any numbness or focal weakness. Patient states he does not feel as though he is off balance or that is in a fall over he feels as though he will black out at any minute. Patient states he continues to feel as though is going to blackout while sitting in bed currently. - Related Data Home Medications Medication Instructions Recorded Confirmed Atorvastatin [Lipitor] 80 mg PO HS 06/25/13 08/11/17 HYDROcodone/APAP 10-325MG [[place] 1 tab PO BID PRN 06/25/13 08/11/17 10-325] Metoprolol Tartrate [Lopressor] 50 mg PO BID 06/25/13 08/11/17 Nitroglycerin Sl Tabs [Nitrostat] 0.4 mg SUBLINGUAL Q5M PRN 06/25/13 08/11/17 Ranolazine [Ranexa] 1,000 mg PO BID 09/23/13 08/11/17 Pantoprazole Sodium [Protonix] 40 mg PO DAILY 07/02/14 08/11/17 Isosorbide Mononitrate ER [Imdur] 60 mg PO BID 10/13/15 08/11/17 Aspirin [Adult Low Dose Aspirin EC] 81 mg PO HS 01/11/16 08/11/17 Lactulose 20 gm PO BID PRN 04/04/17 08/11/17 Phentermine HCl [Adipex-P] 37.5 mg PO DAILY 04/04/17 08/11/17 Enalapril [Vasotec] 20 mg PO BID 08/11/17 08/11/17 Previous Rx's Medication Instructions Recorded Meclizine [Antivert] 25 mg PO TID #90 tab 04/06/17 Allergies Allergy/AdvReac Type Severity Reaction Status Date / Time chocolate flavor Allergy Rash/Hives Verified 08/11/17 12:40 [place] And Derivatives Allergy Rash/Hives Verified 08/11/17 12:40 [[place]] Review of Systems ROS Statement: Those systems with pertinent positive or pertinent negative responses have been documented in the HPI. ROS Other: All systems not noted in ROS Statement are negative. 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 Last Myocardial Infarction Date:: 01-22-2011 History of Any Multi-Drug Resistant Organisms: None Reported Past Surgical History: Adenoidectomy, Cholecystectomy, Coronary Bypass/CABG, Heart Catheterization, Heart Catheterization With Stent, Hernia Repair Additional Past Surgical History / Comment(s): Several caths with last one done 07/02/14 treated medically, total 4 stents (states placed 01/2011), CABG 5 vessel in 2008 (stents came after open heart was done), EGD/colonoscopy, hemorrhoid banding, possible pain injections lower back-pt unsure. Past Anesthesia/Blood Transfusion Reactions: Previous Problems w/ Anesthesia Additional Past Anesthesia/Blood Transfusion Reaction / Comment(s): stated "wakes up slower than normal" Date of Last Stent Placement:: 01-22-2011 Past Psychological History: No Psychological Hx Reported Smoking Status: Light tobacco smoker Past Alcohol Use History: Occasional Past Drug Use History: Marijuana - Past Family History Father Family Medical History: Coronary Artery Disease (CAD) Additional Family Medical History / Comment(s): dad is 75. stents, bypass, prostate and lung cancer. Mother Additional Family Medical History / Comment(s): mom 1997 at age 59- brain aneurysm General Exam - General Exam Comments Initial Comments: GENERAL: Patient is well-developed and well-nourished. Patient is nontoxic and well- hydrated and is in no acute distress. ENT: Neck is soft and supple. No significant lymphadenopathy is noted. Oropharynx is clear. Moist mucous membranes. Neck has full range of motion without eliciting any pain. EYES: The sclera were anicteric and conjunctiva were pink and moist. Extraocular movements were intact and pupils were equal round and reactive to light. Eyelids were unremarkable. PULMONARY: Unlabored respirations. Good breath sounds bilaterally. No audible rales rhonchi or wheezing was noted. CARDIOVASCULAR: There is a regular rate and rhythm without any murmurs gallops or rubs. ABDOMEN: Soft and nontender with normal bowel sounds. No palpable organomegaly was noted. There is no palpable pulsatile mass. SKIN: Skin is clear with no lesions or rashes and otherwise unremarkable. NEUROLOGIC: Patient is alert and oriented x3. Cranial nerves II through XII are grossly intact. Motor and sensory are also intact. Normal speech, volume and content. Symmetrical smile. MUSCULOSKELETAL: Normal extremities with adequate strength and full range of motion. LYMPHATICS: No significant lymphadenopathy is noted PSYCHIATRIC: Normal psychiatric evaluation. Normal interpersonal interactions appears functionally intact in deals appropriately with others. No signs of depression. No signs of anxiety. Limitations: no limitations Course Vital Signs 08/11/17 08/11/17 08/11/17 12:14 12:38 12:40 Temperature 98.3 F 98.9 F Pulse Rate 83 78 Pulse Rate [ Synchronous Motor Assembler ] Respiratory 20 18 18 Rate Blood Pressure 113/70 Blood Pressure [Right Arm Sitting] Blood Pressure [Right Arm Standing] Blood Pressure [Right Arm Supine] O2 Sat by Pulse 98 98 Oximetry 08/11/17 08/11/17 08/11/17 12:43 12:45 12:48 Temperature Pulse Rate Pulse Rate [ 80 82 86 Synchronous Motor Assembler ] Respiratory 18 28 H 18 Rate Blood Pressure Blood Pressure 119/76 [Right Arm Sitting] Blood Pressure 104/61 [Right Arm Standing] Blood Pressure 110/62 [Right Arm Supine] O2 Sat by Pulse 97 98 Oximetry 08/11/17 08/11/17 13:16 14:00 Temperature 98.6 F Pulse Rate 73 71 Pulse Rate [ Synchronous Motor Assembler ] Respiratory 20 20 Rate Blood Pressure 113/65 127/81 Blood Pressure [Right Arm Sitting] Blood Pressure [Right Arm Standing] Blood Pressure [Right Arm Supine] O2 Sat by Pulse 97 97 Oximetry Medical Decision Making - Medical Decision Making EKG shows a normal sinus rhythm at 79 bpm MN interval is 176 QRS is 90 QT interval is 452 QTC is 418. Patient has slight ST segment elevation in lead 3. No significant elevation in any other leads. Patient's chest x-ray shows no acute abnormality. Patient is a symptomatically on the emergency department. Patient ambulated around the emergency department vital stay completely stable he was in no distress when I went back in the room to reassess the patient he was comfortably sitting in bed legs crossed reading a magazine. Patient denied any dizziness at this time. I spoke with Dr. Hernández he wanted the patient to be discharged home to follow-up with him on Monday he also wanted his Vasotec to be decreased to once a day. I talked to the patient he was very comfortable with this and was okay with going home and following up with Dr. Hernández knowing that if anything else happen he was to come back to the emergency department Patient then indicated to me that he never actually felt like he was going to black out even though that's what he said he said it was more like he was intermittently lightheaded but never felt like he was given a go unconscious. - Lab Data Result diagrams: 08/11/17 12:55 08/11/17 12:55 Lab Results 08/11/17 08/11/17 08/11/17 Range/Units 12:55 12:55 12:55 WBC 4.9 (3.8-10.6) k/uL RBC 4.78 (4.30-5.90) m/uL Hgb 11.6 L (13.0-17.5) gm/dL Hct 37.6 L (39.0-53.0) % MCV 78.6 L (80.0-100.0) fL MCH 24.3 L (25.0-35.0) pg MCHC 30.9 L (31.0-37.0) g/dL RDW 17.6 H (11.5-15.5) % Plt Count 262 (150-450) k/uL Neutrophils % 68 % Lymphocytes % 21 % Monocytes % 7 % Eosinophils % 1 % Basophils % 0 % Neutrophils # 3.3 (1.3-7.7) k/uL Lymphocytes # 1.0 (1.0-4.8) k/uL Monocytes # 0.4 (0-1.0) k/uL Eosinophils # 0.1 (0-0.7) k/uL Basophils # 0.0 (0-0.2) k/uL Hypochromasia Moderate Poikilocytosis Slight Anisocytosis Slight Microcytosis Slight Sodium 144 (137-145) mmol/L Potassium 3.5 (3.5-5.1) mmol/L Chloride 110 H (98-107) mmol/L Carbon Dioxide 20 L (22-30) mmol/L Anion Gap 14 mmol/L BUN 16 (9-20) mg/dL Creatinine 1.22 (0.66-1.25) mg/dL Est GFR (CKD-EPI)AfAm 80 (>60 ml/min/1.73 sqM) Est GFR (CKD-EPI)NonAf 69 (>60 ml/min/1.73 sqM) Glucose 129 H (74-99) mg/dL Calcium 8.3 L (8.4-10.2) mg/dL Magnesium 1.6 (1.6-2.3) mg/dL Total Bilirubin 0.9 (0.2-1.3) mg/dL AST 20 (17-59) U/L ALT 27 (21-72) U/L Alkaline Phosphatase 76 (38-126) U/L Total Creatine Kinase 44 L (55-170) U/L CK-MB (CK-2) 0.6 (0.0-2.4) ng/mL CK-MB (CK-2) Rel Index 1.4 Troponin I <0.012 (0.000-0.034) ng/mL Total Protein 6.5 (6.3-8.2) g/dL Albumin 3.7 (3.5-5.0) g/dL Disposition Clinical Impression: Lightheaded Disposition: HOME SELF-CARE Instructions: Lightheadedness (ED) Additional Instructions: Patient should decrease his Vasotec to once a day. Is patient prescribed a controlled substance at d/c from ED?: No Referrals: Sharron Hernández MD [Primary Care Provider] - 1-2 days Time of Disposition: 14:45
[2017-08-11 13:11] LABS: Anisocytosis Slight; Basophils % (A) 0 %; Eosinophils # (A) 0.1 k/uL (0-0.7); Eosinophils % (A) 1 %; HCT 37.6 % (39.0-53.0); HGB 11.6 gm/dL (13.0-17.5); Hypochromasia Moderate; Lymphocytes % (A) 21 %; MCH 24.3 pg (25.0-35.0); MCHC 30.9 g/dL (31.0-37.0); MCV 78.6 fL (80.0-100.0); Mean Platelet Volume 6.9; Microcytosis Slight; Monocytes # (A) 0.4 k/uL (0-1.0); Monocytes % (A) 7 %; Neutrophils # (A) 3.3 k/uL (1.3-7.7); Neutrophils % (A) 68 %; Platelet Count 262 k/uL (150-450); Poikilocytosis Slight; RBC 4.78 m/uL (4.30-5.90); RDW 17.6 % (11.5-15.5); WBC 4.9 k/uL (3.8-10.6)
--- NOTE | 2017-08-11 13:12 | XR ---
EXAMINATION TYPE: XR chest 2V DATE OF EXAM: 08/11/2017 COMPARISON: Prior chest x-ray 04/04/2017 HISTORY: Chest pain TECHNIQUE: Frontal and lateral views of the chest are obtained. FINDINGS: There is no focal air space opacity, pleural effusion, or pneumothorax seen. The cardiac silhouette size is stable. Patient is post median sternotomy. There are overlying cardiac leads. The osseous structures are intact. IMPRESSION: No acute cardiopulmonary process.
[2017-08-11 13:25] LABS: Creatine Kinase 44 U/L (55-170)
[2017-08-11 13:27] LABS: Albumin 3.7 g/dL (3.5-5.0); Calcium 8.3 mg/dL (8.4-10.2); Magnesium 1.6 mg/dL (1.6-2.3); Total Bilirubin 0.9 mg/dL (0.2-1.3); Total Protein 6.5 g/dL (6.3-8.2)
[2017-08-11 13:28] LABS: Potassium 3.5 mmol/L (3.5-5.1)
[2017-08-11 13:39] LABS: Creatine Kinase MB 0.6 ng/mL (0.0-2.4); Troponin I <0.012 ng/mL (0.000-0.034)
[2017-08-11 14:55] VITALS: BP 109/70; PULSE 73; RESP 18; TEMP 98.2
== END 2017-08-11 14:50 | disposition home or self-care (01) ==
LOC: EC 12:13
DX: R42 Dizziness and giddiness (principal); I25.119 Atherosclerotic heart disease of native coronary artery with unspecified angina pectoris; E78.5 Hyperlipidemia, unspecified; I10 Essential (primary) hypertension; I25.2 Old myocardial infarction; F17.200 Nicotine dependence, unspecified, uncomplicated; Z86.73 Personal history of transient ischemic attack (TIA), and cerebral infarction without residual deficits; Z95.1 Presence of aortocoronary bypass graft; Z95.5 Presence of coronary angioplasty implant and graft; Z79.82 Long term (current) use of aspirin; Z79.899 Other long term (current) drug therapy; Z91.018 Allergy to other foods
CPT/HCPCS: 36415; 71046; 80053; 82550; 82553; 83735; 84484; 85025; 93005; 99285

== ENCOUNTER 2017-08-13 10:22 | Inpatient (IN) | payer MEDICARE, OTHER ==
[2017-08-13] MEDS ORDERED: SODIUM CHLORIDE 0.9% 500 ML IV STA (10:38)
[2017-08-13] MEDS ORDERED: ONDANSETRON 4 MG/2 ML VIAL IVP STA (10:41)
--- NOTE | 2017-08-13 10:41 | ED ---
General Adult HPI - General Chief complaint: Chest Pain Stated complaint: Chest Pain Time Seen by Provider: 08/13/17 10:25 Source: patient, RN notes reviewed Mode of arrival: EMS Limitations: no limitations - History of Present Illness Initial comments: This a 51-year-old male who presents emergency department stating that he went to religious this morning started to have some nausea little bit of abdominal cramping patient states at that time he thought he might have some diarrhea. Patient states became very sweaty lightheaded and passed out according to people at the religious. Patient states this happened Monday and patient was seen in the emergency department on Monday but he did not pass out he just became extremely lightheaded. Patient states he had no chest pain today no palpitations no difficulty breathing shortness of breath. Patient still complains of nausea and the sensation that he might have diarrhea. Patient states he doesn't have any abdominal pain but he has abdominal cramping. Patient denies any fever chills. Patient denies any headache patient denies any numbness weakness. Patient states he doesn't have any lightheadedness currently but he did it religious and on Monday. Patient does have a history of a 5 way bypass in 2008. - Related Data Home Medications Medication Instructions Recorded Confirmed Atorvastatin [Lipitor] 80 mg PO HS 06/25/13 08/13/17 HYDROcodone/APAP 10-325MG [[place] 1 tab PO BID PRN 06/25/13 08/13/17 10-325] Metoprolol Tartrate [Lopressor] 50 mg PO BID 06/25/13 08/13/17 Nitroglycerin Sl Tabs [Nitrostat] 0.4 mg SUBLINGUAL Q5M PRN 06/25/13 08/13/17 Ranolazine [Ranexa] 1,000 mg PO BID 09/23/13 08/13/17 Pantoprazole Sodium [Protonix] 40 mg PO DAILY 07/02/14 08/13/17 Isosorbide Mononitrate ER [Imdur] 60 mg PO BID 10/13/15 08/13/17 Aspirin [Adult Low Dose Aspirin EC] 81 mg PO HS 01/11/16 08/13/17 Lactulose 20 gm PO BID PRN 04/04/17 08/13/17 Phentermine HCl [Adipex-P] 37.5 mg PO DAILY 04/04/17 08/13/17 Enalapril [Vasotec] 20 mg PO BID 08/11/17 08/13/17 Previous Rx's Medication Instructions Recorded Meclizine [Antivert] 25 mg PO TID #90 tab 04/06/17 Allergies Allergy/AdvReac Type Severity Reaction Status Date / Time chocolate flavor Allergy Rash/Hives Verified 08/13/17 10:28 [place] And Derivatives Allergy Rash/Hives Verified 08/13/17 10:28 [[place]] Review of Systems ROS Statement: Those systems with pertinent positive or pertinent negative responses have been documented in the HPI. ROS Other: All systems not noted in ROS Statement are negative. 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 Last Myocardial Infarction Date:: 01-22-2011 History of Any Multi-Drug Resistant Organisms: None Reported Past Surgical History: Adenoidectomy, Cholecystectomy, Coronary Bypass/CABG, Heart Catheterization, Heart Catheterization With Stent, Hernia Repair Additional Past Surgical History / Comment(s): Several caths with last one done 07/02/14 treated medically, total 4 stents (states placed 01/2011), CABG 5 vessel in 2008 (stents came after open heart was done), EGD/colonoscopy, hemorrhoid banding, possible pain injections lower back-pt unsure. Past Anesthesia/Blood Transfusion Reactions: Previous Problems w/ Anesthesia Additional Past Anesthesia/Blood Transfusion Reaction / Comment(s): stated "wakes up slower than normal" Date of Last Stent Placement:: 01-22-2011 Past Psychological History: No Psychological Hx Reported Smoking Status: Former smoker Past Alcohol Use History: Occasional Past Drug Use History: Marijuana - Past Family History Father Family Medical History: Coronary Artery Disease (CAD) Additional Family Medical History / Comment(s): dad is 75. stents, bypass, prostate and lung cancer. Mother Additional Family Medical History / Comment(s): mom 1997 at age 59- brain aneurysm General Exam - General Exam Comments Initial Comments: GENERAL: Patient is well-developed and well-nourished. Patient is nontoxic and well- hydrated and is in mild distress. ENT: Neck is soft and supple. No significant lymphadenopathy is noted. Oropharynx is clear. Moist mucous membranes. Neck has full range of motion without eliciting any pain. EYES: The sclera were anicteric and conjunctiva were pink and moist. Extraocular movements were intact and pupils were equal round and reactive to light. Eyelids were unremarkable. PULMONARY: Unlabored respirations. Good breath sounds bilaterally. No audible rales rhonchi or wheezing was noted. CARDIOVASCULAR: There is a regular rate and rhythm without any murmurs gallops or rubs. ABDOMEN: Soft and nontender with normal bowel sounds. No palpable organomegaly was noted. There is no palpable pulsatile mass. SKIN: Skin is clear with no lesions or rashes and otherwise unremarkable. NEUROLOGIC: Patient is alert and oriented x3. Cranial nerves II through XII are grossly intact. Motor and sensory are also intact. Normal speech, volume and content. Symmetrical smile. MUSCULOSKELETAL: Normal extremities with adequate strength and full range of motion. No lower extremity swelling or edema. No calf tenderness. LYMPHATICS: No significant lymphadenopathy is noted PSYCHIATRIC: Normal psychiatric evaluation. Normal interpersonal interactions appears functionally intact in deals appropriately with others. No signs of depression. No signs of anxiety. Limitations: no limitations Course Vital Signs 08/13/17 08/13/17 10:24 11:39 Temperature 98.8 F Pulse Rate 81 Pulse Rate [ 83 Sitting] Pulse Rate [ 90 Standing] Pulse Rate [ 84 Supine] Respiratory 18 Rate Blood Pressure 139/89 Blood Pressure 121/74 [Sitting] Blood Pressure 118/72 [Standing] Blood Pressure 117/64 [Supine] O2 Sat by Pulse 96 Oximetry Medical Decision Making - Medical Decision Making EKG shows a normal sinus rhythm at 82 bpm IA interval 166 QRS is 82 QT interval 412 QTC is 481. Patient's EKG shows no acute changes abnormalities when compared to previous EKG. Patient's chest x-ray shows no acute abnormality. Patient's magnesium and potassium are both lower place those in the emergency department. Patient's lipase is mildly elevated however patient is not complaining of any abdominal pain. I spoke with Dr. Davies she agreed to admit the patient admitted the patient consult cardiology for the syncope. - Lab Data Result diagrams: 08/13/17 10:50 08/13/17 10:50 Lab Results 08/13/17 08/13/17 08/13/17 Range/Units 10:50 10:50 10:50 WBC 6.3 (3.8-10.6) k/uL RBC 5.02 (4.30-5.90) m/uL Hgb 12.3 L (13.0-17.5) gm/dL Hct 39.0 (39.0-53.0) % MCV 77.7 L (80.0-100.0) fL MCH 24.6 L (25.0-35.0) pg MCHC 31.6 (31.0-37.0) g/dL RDW 17.4 H (11.5-15.5) % Plt Count 250 (150-450) k/uL Neutrophils % 76 % Lymphocytes % 13 % Monocytes % 8 % Eosinophils % 1 % Basophils % 0 % Neutrophils # 4.8 (1.3-7.7) k/uL Lymphocytes # 0.8 L (1.0-4.8) k/uL Monocytes # 0.5 (0-1.0) k/uL Eosinophils # 0.1 (0-0.7) k/uL Basophils # 0.0 (0-0.2) k/uL Hypochromasia Moderate Anisocytosis Slight Microcytosis Slight PT (9.0-12.0) sec INR (<1.2) APTT (22.0-30.0) sec Sodium 142 (137-145) mmol/L Potassium 3.2 L (3.5-5.1) mmol/L Chloride 106 (98-107) mmol/L Carbon Dioxide 20 L (22-30) mmol/L Anion Gap 16 mmol/L BUN 15 (9-20) mg/dL Creatinine 1.17 (0.66-1.25) mg/dL Est GFR (CKD-EPI)AfAm 84 (>60 ml/min/1.73 sqM) Est GFR (CKD-EPI)NonAf 72 (>60 ml/min/1.73 sqM) Glucose 171 H (74-99) mg/dL Calcium 8.3 L (8.4-10.2) mg/dL Magnesium 1.4 L (1.6-2.3) mg/dL Total Bilirubin 0.9 (0.2-1.3) mg/dL AST 16 L (17-59) U/L ALT 26 (21-72) U/L Alkaline Phosphatase 82 (38-126) U/L Total Creatine Kinase 33 L (55-170) U/L CK-MB (CK-2) 1.1 (0.0-2.4) ng/mL CK-MB (CK-2) Rel Index 3.3 Troponin I <0.012 (0.000-0.034) ng/mL Total Protein 6.2 L (6.3-8.2) g/dL Albumin 3.6 (3.5-5.0) g/dL Amylase 82 (30-110) U/L Lipase 567 H (23-300) U/L 08/13/17 Range/Units 10:50 WBC (3.8-10.6) k/uL RBC (4.30-5.90) m/uL Hgb (13.0-17.5) gm/dL Hct (39.0-53.0) % MCV (80.0-100.0) fL MCH (25.0-35.0) pg MCHC (31.0-37.0) g/dL RDW (11.5-15.5) % Plt Count (150-450) k/uL Neutrophils % % Lymphocytes % % Monocytes % % Eosinophils % % Basophils % % Neutrophils # (1.3-7.7) k/uL Lymphocytes # (1.0-4.8) k/uL Monocytes # (0-1.0) k/uL Eosinophils # (0-0.7) k/uL Basophils # (0-0.2) k/uL Hypochromasia Anisocytosis Microcytosis PT 10.2 (9.0-12.0) sec INR 1.0 (<1.2) APTT 22.1 (22.0-30.0) sec Sodium (137-145) mmol/L Potassium (3.5-5.1) mmol/L Chloride (98-107) mmol/L Carbon Dioxide (22-30) mmol/L Anion Gap mmol/L BUN (9-20) mg/dL Creatinine (0.66-1.25) mg/dL Est GFR (CKD-EPI)AfAm (>60 ml/min/1.73 sqM) Est GFR (CKD-EPI)NonAf (>60 ml/min/1.73 sqM) Glucose (74-99) mg/dL Calcium (8.4-10.2) mg/dL Magnesium (1.6-2.3) mg/dL Total Bilirubin (0.2-1.3) mg/dL AST (17-59) U/L ALT (21-72) U/L Alkaline Phosphatase (38-126) U/L Total Creatine Kinase (55-170) U/L CK-MB (CK-2) (0.0-2.4) ng/mL CK-MB (CK-2) Rel Index Troponin I (0.000-0.034) ng/mL Total Protein (6.3-8.2) g/dL Albumin (3.5-5.0) g/dL Amylase (30-110) U/L Lipase (23-300) U/L Disposition Clinical Impression: Syncope and collapse, Hypokalemia, Hypomagnesemia, Elevated lipase Disposition: ADMITTED IP TO THIS [facility] Referrals: Sharron Hernández MD [Primary Care Provider] - 1-2 days Time of Disposition: 12:24
[2017-08-13 11:13] LABS: Anisocytosis Slight; Basophils % (A) 0 %; Eosinophils # (A) 0.1 k/uL (0-0.7); Eosinophils % (A) 1 %; HGB 12.3 gm/dL (13.0-17.5); Hypochromasia Moderate; Lymphocytes # (A) 0.8 k/uL (1.0-4.8); Lymphocytes % (A) 13 %; MCH 24.6 pg (25.0-35.0); MCHC 31.6 g/dL (31.0-37.0); MCV 77.7 fL (80.0-100.0); Mean Platelet Volume 7.1; Microcytosis Slight; Monocytes # (A) 0.5 k/uL (0-1.0); Monocytes % (A) 8 %; Neutrophils # (A) 4.8 k/uL (1.3-7.7); Neutrophils % (A) 76 %; Platelet Count 250 k/uL (150-450); RBC 5.02 m/uL (4.30-5.90); RDW 17.4 % (11.5-15.5); WBC 6.3 k/uL (3.8-10.6)
[2017-08-13 11:21] LABS: Partial Thromboplastin Time 22.1 sec (22.0-30.0); Prothrombin Time 10.2 sec (9.0-12.0)
[2017-08-13 11:23] LABS: Albumin 3.6 g/dL (3.5-5.0); Calcium 8.3 mg/dL (8.4-10.2); Magnesium 1.4 mg/dL (1.6-2.3); Potassium 3.2 mmol/L (3.5-5.1); Total Bilirubin 0.9 mg/dL (0.2-1.3); Total Protein 6.2 g/dL (6.3-8.2)
--- NOTE | 2017-08-13 11:31 | XR ---
EXAMINATION TYPE: XR chest 2V DATE OF EXAM: 08/13/2017 HISTORY: Chest Pain. REFERENCE: Previous study dated 08/11/2017. FINDINGS: There are has been a midline sternotomy. The patient has taken a relatively poor inspiration. There is some atelectatic change present at the left lung base. Lungs otherwise clear. Pleural space are clear. Heart size is upper limits of normal. IMPRESSION: MINIMAL ATELECTASIS, LEFT LUNG BASE.
[2017-08-13 11:33] LABS: Creatine Kinase 33 U/L (55-170)
[2017-08-13 11:47] LABS: Creatine Kinase MB 1.1 ng/mL (0.0-2.4); Troponin I <0.012 ng/mL (0.000-0.034)
[2017-08-13] MEDS ORDERED: POTASSIUM CHLORIDE 10 MEQ in WATER FOR INJECTION 1 100ML.BAG IVPB STA (12:22)
[2017-08-13] MEDS ORDERED: MAGNESIUM SULFATE-D5W PMX 1 GM in DEXTROSE/WATER 1 100ML.BAG IVPB ONE (12:22)
[2017-08-13] MEDS ORDERED: POTASSIUM CHLORIDE ER 20 MEQ TAB.ER PO STA (12:23)
[2017-08-13] MEDS ORDERED: SODIUM CHLORIDE 0.9% 1,000 ML IV ONE (12:25)
[2017-08-13] MEDS: NITROGLYCERIN SL TABS 0.4 MG TAB SUBLINGUAL ONE ×3 (14:05→14:28)
[2017-08-13] MEDS ORDERED: HEPARIN SODIUM,PORCINE 5,000 UNIT/ML 1 ML VIAL IV PRN (14:23)
[2017-08-13] MEDS ORDERED: HEPARIN SODIUM,PORCINE 5,000 UNIT/ML 1 ML VIAL IV ONE (14:23)
--- NOTE | 2017-08-13 14:27 | P.CRDCN ---
History of Present Illness Consult date: 08/13/17 Chief complaint: Chest discomfort History of present illness: This is a pleasant 51-year-old gentleman who sees Dr. Baer in the office as an outpatient with a past medical history significant for coronary artery disease and prior coronary artery bypass grafting in 2008 and coronary artery stenting in 2010 with unknown details at this point, hypertension, dyslipidemia , presented to the emergency room complaining of chest discomfort. The patient was in his usual state of health until earlier today when he was in the buddhism and started experiencing chest discomfort, in the mid of the chest, as a dull/ pressure kind of discomfort, without any radiation to the arm or neck or shoulders and without any associated symptoms of shortness of breath, sweating, dizziness or lightheadedness. He stated that he lost his consciousness briefly. The EKG showed sinus rhythm with T-wave inversion in the high lateral leads. The first set of enzymes came in to be unremarkable. The patient continues to have mild chest discomfort and I just gave him nitroglycerin sublingual. I reviewed the old EKG from March 2017 and the changes in the high lateral leads seems to be the same as before. I am going to keep the patient on heparin IV. Resume his anti-ischemic medications. Follow-up with the 2 sets of serial cardiac enzymes. The patient underwent a myocardial perfusion imaging stress test back in June 2016 and that revealed no ischemia at that point. 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 Last Myocardial Infarction Date:: 01-22-2011 History of Any Multi-Drug Resistant Organisms: None Reported Past Surgical History: Adenoidectomy, Cholecystectomy, Coronary Bypass/CABG, Heart Catheterization, Heart Catheterization With Stent, Hernia Repair Additional Past Surgical History / Comment(s): Several caths with last one done 07/02/14 treated medically, total 4 stents (states placed 01/2011), CABG 5 vessel in 2008 (stents came after open heart was done), EGD/colonoscopy, hemorrhoid banding, possible pain injections lower back, umbilical hernia repair Past Anesthesia/Blood Transfusion Reactions: Previous Problems w/ Anesthesia Additional Past Anesthesia/Blood Transfusion Reaction / Comment(s): stated "wakes up slower than normal" Date of Last Stent Placement:: 01-22-2011 Past Psychological History: No Psychological Hx Reported, Anxiety, Depression Additional Psychological History / Comment(s): Pt states he has no current mental health disease. He states he had suicidal thoughts yrs ago at age 43, immediately following CABG in 2008 due to drastic lifestyle changes and being told he could no longer work. lives with brother and neice, does not work Smoking Status: Current every day smoker Past Alcohol Use History: Occasional Additional Past Alcohol Use History / Comment(s): started smoking age 15 never more than 1/2 ppd and later in life took up cigars (one per week at most). quit in oct 2012. one cigar and glass of scotch/week Past Drug Use History: Marijuana Additional Drug Use History / Comment(s): as teenager into s occ smoked marijuana NOW seldom - Past Family History Father Family Medical History: Coronary Artery Disease (CAD) Additional Family Medical History / Comment(s): dad is 75. stents, bypass, prostate and lung cancer. Mother Additional Family Medical History / Comment(s): mom 1997 at age 59- brain aneurysm Medications and Allergies Home Medications Medication Instructions Recorded Confirmed Type Atorvastatin [Lipitor] 80 mg PO HS 06/25/13 08/13/17 History HYDROcodone/APAP 10-325MG [[place] 1 tab PO BID PRN 06/25/13 08/13/17 History 10-325] Metoprolol Tartrate [Lopressor] 50 mg PO BID 06/25/13 08/13/17 History Nitroglycerin Sl Tabs [Nitrostat] 0.4 mg SUBLINGUAL Q5M PRN 06/25/13 08/13/17 History Ranolazine [Ranexa] 1,000 mg PO BID 09/23/13 08/13/17 History Pantoprazole Sodium [Protonix] 40 mg PO DAILY 07/02/14 08/13/17 History Isosorbide Mononitrate ER [Imdur] 60 mg PO BID 10/13/15 08/13/17 History Aspirin [Adult Low Dose Aspirin EC] 81 mg PO HS 01/11/16 08/13/17 History Lactulose 20 gm PO BID PRN 04/04/17 08/13/17 History Phentermine HCl [Adipex-P] 37.5 mg PO DAILY 04/04/17 08/13/17 History Enalapril [Vasotec] 20 mg PO DAILY 08/11/17 08/13/17 History Meclizine [Antivert] 25 mg PO TID PRN 08/13/17 08/13/17 History Allergies Allergy/AdvReac Type Severity Reaction Status Date / Time chocolate flavor Allergy Rash/Hives Verified 08/13/17 12:44 [place] And Derivatives Allergy Rash/Hives Verified 08/13/17 12:44 [[place]] Physical Exam Vitals: Vital Signs Temp Pulse Pulse Pulse Pulse Resp BP 08/13/17 13:00 82 20 113/64 08/13/17 11:39 83 90 84 08/13/17 10:24 98.8 F 81 18 139/89 BP BP BP Pulse Ox 08/13/17 13:00 96 08/13/17 11:39 121/74 118/72 117/64 08/13/17 10:24 96 Intake and Output 08/12/17 08/13/17 08/13/17 22:59 06:59 14:59 Other: Weight 122.47 kg - Constitutional General appearance: no acute distress - Respiratory Respiratory: bilateral: CTA - Cardiovascular Rhythm: regular Heart sounds: normal: S1, S2 Results 08/13/17 10:50 08/13/17 10:50 Cardiac Enzymes 08/13/17 08/13/17 Range/Units 10:50 10:50 AST 16 L (17-59) U/L CK-MB (CK-2) 1.1 (0.0-2.4) ng/mL Troponin I <0.012 (0.000-0.034) ng/mL Coagulation 08/13/17 Range/Units 10:50 PT 10.2 (9.0-12.0) sec APTT 22.1 (22.0-30.0) sec CBC 08/13/17 Range/Units 10:50 WBC 6.3 (3.8-10.6) k/uL RBC 5.02 (4.30-5.90) m/uL Hgb 12.3 L (13.0-17.5) gm/dL Hct 39.0 (39.0-53.0) % Plt Count 250 (150-450) k/uL Comprehensive Metabolic Panel 08/13/17 Range/Units 10:50 Sodium 142 (137-145) mmol/L Potassium 3.2 L (3.5-5.1) mmol/L Chloride 106 (98-107) mmol/L Carbon Dioxide 20 L (22-30) mmol/L BUN 15 (9-20) mg/dL Creatinine 1.17 (0.66-1.25) mg/dL Glucose 171 H (74-99) mg/dL Calcium 8.3 L (8.4-10.2) mg/dL AST 16 L (17-59) U/L ALT 26 (21-72) U/L Alkaline Phosphatase 82 (38-126) U/L Total Protein 6.2 L (6.3-8.2) g/dL Albumin 3.6 (3.5-5.0) g/dL Current Medications Generic Name Dose Route Start Last Admin Trade Name Freq PRN Reason Stop Dose Admin Sodium Chloride 1,000 mls @ 100 mls/hr 08/13/17 12:25 08/13/17 13:02 Saline 0.9% IV 08/13/17 22:24 100 mls/hr .Q10H ONE Administration Intake and Output 08/12/17 08/13/17 08/13/17 22:59 06:59 14:59 Other: Weight 122.47 kg Patient Weight 08/14/17 06:59 Weight 122.47 kg 08/13/17 10:50 08/13/17 10:50 Assessment and Plan Assessment: Assessment #1 chest discomfort. #2 known severe underlying CAD and prior revascularization in the term off CABG and stenting #3 hypertension #4 dyslipidemia Plan #1 acute coronary event to be ruled out. #2 we'll follow-up with the serial cardiac enzymes #3 the patient stated that he underwent a stress test in May 2017 we'll get a copy of it from the office #4 follow-up with the patient. Thank you for allowing us participate in his care
[2017-08-13] MEDS ORDERED: LACTULOSE 20 GM/30 ML CUP PO PRN (14:29)
[2017-08-13] MEDS ORDERED: NITROGLYCERIN SL TABS 0.4 MG TAB SUBLINGUAL PRN (14:29)
[2017-08-13] MEDS ORDERED: MECLIZINE 25 MG TAB PO PRN (14:29)
[2017-08-13] MEDS ORDERED: HEPARIN SOD,PORK IN 0.45% NACL 25,000 UNIT in 0.45% NACL 1 500ML.BAG IV SCH (14:30)
[2017-08-13 14:45] VITALS: BMI 37.6
[2017-08-13] MEDS ORDERED: ASPIRIN 81 MG PO SCH (21:00)
[2017-08-13] MEDS: ISOSORBIDE MONONITRATE ER 60 MG TAB.ER.24H PO SCH (21:09)
[2017-08-13] MEDS: ATORVASTATIN 80 MG TAB PO SCH (21:09)
[2017-08-13] MEDS: RANOLAZINE 500 MG TAB.ER.12H PO SCH (21:09)
[2017-08-13] MEDS: METOPROLOL TARTRATE 50 MG TAB PO SCH (21:09)
[2017-08-13 22:12] LABS: Anion Gap 12 mmol/L; Calcium 7.9 mg/dL (8.4-10.2); Carbon Dioxide 21 mmol/L (22-30); Chloride 106 mmol/L (98-107); Glucose 99 mg/dL (74-99); Sodium 139 mmol/L (137-145)
[2017-08-13 22:17] LABS: Blood Urea Nitrogen 15 mg/dL (9-20); Potassium 3.6 mmol/L (3.5-5.1)
[2017-08-14 04:58] LABS: Anisocytosis Slight; Basophils % (A) 0 %; Eosinophils # (A) 0.1 k/uL (0-0.7); Eosinophils % (A) 2 %; HCT 35.2 % (39.0-53.0); Hypochromasia Moderate; Lymphocytes % (A) 44 %; MCH 24.1 pg (25.0-35.0); MCHC 31.1 g/dL (31.0-37.0); MCV 77.4 fL (80.0-100.0); Mean Platelet Volume 7.3; Microcytosis Slight; Monocytes # (A) 0.4 k/uL (0-1.0); Monocytes % (A) 8 %; Neutrophils % (A) 43 %; Platelet Count 220 k/uL (150-450); RBC 4.54 m/uL (4.30-5.90); RDW 17.6 % (11.5-15.5); WBC 4.7 k/uL (3.8-10.6)
[2017-08-14 05:18] LABS: ALT 24 U/L (21-72); AST 13 U/L (17-59); Albumin 3.1 g/dL (3.5-5.0); Alkaline Phosphatase 75 U/L (38-126); Anion Gap 12 mmol/L; Blood Urea Nitrogen 12 mg/dL (9-20); Carbon Dioxide 23 mmol/L (22-30); Chloride 106 mmol/L (98-107); Glucose 98 mg/dL (74-99); Lipase 107 U/L (23-300); Magnesium 1.7 mg/dL (1.6-2.3); Potassium 3.4 mmol/L (3.5-5.1); Sodium 141 mmol/L (137-145); Total Bilirubin 0.9 mg/dL (0.2-1.3); Total Protein 5.4 g/dL (6.3-8.2)
[2017-08-14] MEDS ORDERED: PANTOPRAZOLE 40 MG TABLET PO SCH (07:30)
[2017-08-14] MEDS: METOPROLOL TARTRATE 50 MG TAB PO SCH ×2 (09:31→21:14)
[2017-08-14] MEDS: RANOLAZINE 500 MG TAB.ER.12H PO SCH ×2 (09:31→21:14)
[2017-08-14] MEDS: LISINOPRIL 20 MG TAB PO SCH (09:31)
[2017-08-14] MEDS: ISOSORBIDE MONONITRATE ER 60 MG TAB.ER.24H PO SCH ×2 (09:32→21:14)
[2017-08-14] MEDS: PANTOPRAZOLE 40 MG/10 ML VIAL IVP SCH (09:32)
[2017-08-14] MEDS ORDERED: IOPAMIDOL-300 CONTRAST 30 ML VIAL (ORAL USE) PO PRN (10:03)
--- NOTE | 2017-08-14 11:18 | P.PN ---
Subjective Progress Note Date: 08/14/17 This is a pleasant 51-year-old gentleman who sees Dr. Baer in the office as an outpatient with a past medical history significant for coronary artery disease and prior coronary artery bypass grafting in 2008 and coronary artery stenting in 2010 with unknown details at this point, hypertension, dyslipidemia , presented to the emergency room complaining of chest discomfort. The patient was in his usual state of health until earlier today when he was in the latter-day and started experiencing chest discomfort, in the mid of the chest, as a dull/ pressure kind of discomfort, without any radiation to the arm or neck or shoulders and without any associated symptoms of shortness of breath, sweating, dizziness or lightheadedness. He stated that he lost his consciousness briefly. The EKG showed sinus rhythm with T-wave inversion in the high lateral leads, similar to prior EKG. Troponins negative 3. Stress test performed in May of this year at the office was negative for any reversible ischemia. Patient did notice some blood in his stool last evening and again this morning, stool was sent to the lab and came back positive for occult. [place] any chest discomfort this morning, no dizziness or lightheadedness, breathing is stable. Blood pressure 126/70 with a heart rate in the 70s, temperature 97.1. 96% on room air. White blood cell count 4.7, hemoglobin 11, platelet count 220. Sodium 141, potassium 3.4, BUN 12, creatinine 1.0. Patient is currently on clear liquids as a request for GI service has been made. Objective - Vital Signs Vital signs: Vital Signs Temp 97.1 F L 08/14/17 09:14 Pulse 74 08/14/17 09:14 Resp 18 08/14/17 09:14 BP 127/78 08/14/17 09:14 Pulse Ox 96 08/14/17 09:14 Intake & Output 08/13/17 08/14/17 08/14/17 18:59 06:59 18:59 Intake Total 236 1130.163 240 Balance 236 1130.163 240 Weight 122.47 kg 122.8 kg Intake: Intake, IV Titration 1130.163 Amount Heparin Sod,Pork in 0.45% 170.163 NaCl 25,000 unit In 0.45 % NaCl 1 500ml.bag @ 8.16 UNITS/KG/HR 19.98 mls/hr IV .Q24H [place]WARD[place] Rx#: [id number] Sodium Chloride 0.9% 1, 960 000 ml @ 100 mls/hr IV . Q10H ONE Rx#:[id number] Oral 236 240 Other: Voiding Method Toilet Toilet # Voids 1 - Exam PHYSICAL EXAMINATION: GENERAL: 51-year-old gentleman in no acute distress at the time of my examination HEENT: Head is atraumatic, normocephalic. Pupils equal, round. Sclera anicteric. Conjunctiva are clear. Mucous membranes of the mouth are moist. Neck is supple. There is no elevated jugular venous pressure.] bruit is heard. HEART EXAMINATION: Heart S1, S2 normal. No murmur or gallop heard. CHEST EXAMINATION: Lungs are clear to auscultation and precussion. No chest wall tenderness is noted on palpation or with deep breathing. ABDOMEN: Soft, nontender. Bowel sounds are heard. No organomegaly noted. EXTREMITIES: 2+ peripheral pulses with no evidence of peripheral edema and no calf tenderness noted. NEUROLOGIC patient is awake, alert and oriented ?-3. . - Labs CBC & Chem 7: 08/14/17 04:49 08/14/17 04:49 Labs: Abnormal Lab Results - Last 24 Hours (Table) 08/13/17 08/13/17 08/13/17 Range/Units 10:50 10:50 10:50 Hgb 12.3 L (13.0-17.5) gm/dL Hct (39.0-53.0) % MCV 77.7 L (80.0-100.0) fL MCH 24.6 L (25.0-35.0) pg RDW 17.4 H (11.5-15.5) % Lymphocytes # 0.8 L (1.0-4.8) k/uL APTT (22.0-30.0) sec Potassium 3.2 L (3.5-5.1) mmol/L Carbon Dioxide 20 L (22-30) mmol/L Glucose 171 H (74-99) mg/dL Calcium 8.3 L (8.4-10.2) mg/dL Magnesium 1.4 L (1.6-2.3) mg/dL AST 16 L (17-59) U/L Total Creatine Kinase 33 L (55-170) U/L Total Protein 6.2 L (6.3-8.2) g/dL Albumin (3.5-5.0) g/dL Lipase 567 H (23-300) U/L 08/13/17 08/13/17 08/14/17 Range/Units 16:39 21:41 04:49 Hgb 11.0 L (13.0-17.5) gm/dL Hct 35.2 L (39.0-53.0) % MCV 77.4 L (80.0-100.0) fL MCH 24.1 L (25.0-35.0) pg RDW 17.6 H (11.5-15.5) % Lymphocytes # (1.0-4.8) k/uL APTT 44.1 H (22.0-30.0) sec Potassium (3.5-5.1) mmol/L Carbon Dioxide 21 L (22-30) mmol/L Glucose (74-99) mg/dL Calcium 7.9 L (8.4-10.2) mg/dL Magnesium (1.6-2.3) mg/dL AST (17-59) U/L Total Creatine Kinase (55-170) U/L Total Protein (6.3-8.2) g/dL Albumin (3.5-5.0) g/dL Lipase (23-300) U/L 08/14/17 08/14/17 Range/Units 04:49 04:49 Hgb (13.0-17.5) gm/dL Hct (39.0-53.0) % MCV (80.0-100.0) fL MCH (25.0-35.0) pg RDW (11.5-15.5) % Lymphocytes # (1.0-4.8) k/uL APTT 35.6 H (22.0-30.0) sec Potassium 3.4 L (3.5-5.1) mmol/L Carbon Dioxide (22-30) mmol/L Glucose (74-99) mg/dL Calcium 8.0 L (8.4-10.2) mg/dL Magnesium (1.6-2.3) mg/dL AST 13 L (17-59) U/L Total Creatine Kinase (55-170) U/L Total Protein 5.4 L (6.3-8.2) g/dL Albumin 3.1 L (3.5-5.0) g/dL Lipase (23-300) U/L Assessment and Plan Plan: Assessment #1 chest discomfort. Troponins negative 3. A stress test performed as an outpatient in May of this year was negative for any reversible ischemia. #2 known severe underlying CAD and prior revascularization in the term off CABG and stenting #3 hypertension #4 dyslipidemia #5 history of syncope #6 lower GI bleed Plan From cardiology's perspective acute coronary event has been ruled out. Patient now will have a GI workup because of the lower GI bleeding. We will follow him now on an as-needed basis only, please don't hesitate to call with any questions. Follow-up appointment will be made with Dr. Jorgensen in the office post discharge. DNP note has been reviewed, I agree with a documented findings and plan of care. Patient was seen and examined.
[2017-08-14] MEDS: LEVOFLOXACIN 500MG-D5W PMX 500 MG in DEXTROSE/WATER 1 100ML.BAG IVPB SCH (11:33)
[2017-08-14] MEDS: metroNIDAZOLE-NS PMX 500 MG in SALINE 1 100ML.BAG IVPB SCH ×3 (11:33→23:21)
--- NOTE | 2017-08-14 12:34 | CT ---
EXAMINATION TYPE: CT abdomen pelvis w con DATE OF EXAM: 08/14/2017 COMPARISON: 11/07/2016 HISTORY: 51-year-old male with abdominal pain with diarrhea TECHNIQUE: Contiguous axial scanning of the abdomen and pelvis following administration of 100 ml Iso mabel 300 IV contrast. 6 minute delayed images through the kidneys and coronal/sagittal reconstruction s performed. CT DLP: 3726.6 mGycm Automated exposure control for dose reduction was used. FINDINGS: Median sternotomy wires are present. Heart normal size without pericardial effusion. Lung bases clear without pleural effusion. No focal liver lesion or biliary ductal dilatation. Portal venous system is patent. Cholecystectomy clips. Adrenal glands, left kidney, spleen with anterior splenules, and pancreas appear within normal limits . Stable 1.4 cm central cyst in the right kidney. There is persistent nephrogram on the minute delayed kidney images. No dilated small bowel, free fluid, or free air. No mesenteric or retroperitoneal lymphadenopathy. Normal appendix. There is prominent with stool seen within the cecum and ascending colon with mild surrounding fat str anding. Mild diverticulosis at the junction of the descending and sigmoid colon. Bladder not distended. No abnormal fluid collection in the pelvis or pelvic lymphadenopathy. Bones: Mild degenerative changes at the hips and degenerative disc disease L5-S1. No osseous destruct charles process. IMPRESSION: 1. LIQUID STOOL WITHIN THE CECUM AND ASCENDING COLON WITH SOME SURROUNDING FAT STRANDING. CORRELATE F OR A MILD NONSPECIFIC COLITIS. 2. THE APPENDIX APPEARS NORMAL. 3. NOTE PERSISTENT NEPHROGRAMS. 6 MINUTE DELAYED KIDNEY IMAGES WERE PERFORMED AND NO EXCRETED CONTRAS T IS IDENTIFIED WITHIN THE COLLECTING SYSTEMS. CORRELATE WITH RENAL FUNCTION ACUTE KIDNEY INJURY I NCLUDING ATN AND CONTRAST NEPHROPATHY ARE IN THE DIFFERENTIAL.
[2017-08-14] MEDS ORDERED: Potassium Replacement Protocol 1 EACH MISC MISCELLANE PRN (13:01)
--- NOTE | 2017-08-14 14:43 | P.HPIM ---
History of Present Illness H&P Date: 08/14/17 This is a 51-year-old gentleman patient of Dr. Hernández/ Dr Jorgensen He has underlying history of CAD, CABG, previous CVA involving the occipital lobe, chronic tobacco use and cigar use, moderate alcohol consumption. His cardiac history are as follows:coronary artery disease multiple procedure including bypass grafting 2008 which is HOPKINS to the LAD and saphenous vein graft to the diagonal 1 saphenous vein graft to the diagonal 2 and saphenous vein graft to the obtuse marginal and right coronary artery. Patient also had heart cath with multiple angioplasty in the last a few years his last heart cath was in June 2014 which revealed patent saphenous vein graft to the obtuse marginal diagonal 1 and diagonal 2 patent LAD free of any atherosclerotic disease with atrophic HOPKINS to the LAD and patent saphenous vein graft to the obtuse marginal . August 2015, echocardiogram at that time showed ejection fraction of 50-55% inferoseptal LV wall motion hypokinesia mild aortic valve sclerosis without stenosis, no aortic regurgitation, mild MR and mild TR no pulmonary hypertension aortic root is normal no pericardial effusion at that time, most recent Lexiscan stress test 06/06/2016with no stress induced ischemia. He was last seen in 2017 for near syncope which was likely secondary to benign positional vertigo versus vestibular neuritis. Patient was also positive for apley maneuver. Neurology evaluation is negative. Echocardiogram had normal LV systolic function and cardiology's office Patient comes in this time with an episode of syncope while he was in the orthodoxy associated with shortness of breath, chest pain, sweating and palpitation. He lost his consciousness. EKG done in the ER suggested some T- wave inversion in the lateral leads with sinus rhythm. Previous EKG had similar changes in the lateral leads. Patient was briefly on heparin drip. He also complained of right lower quadrant abdominal pain with episodes of diarrhea for the past few days. Patient noticed some bright red blood in the diarrhea. He does have history of hemorrhoids and that it is more than his regular hemorrhoids. He has history of colonoscopy in 2014 which suggested mild proctitis and internal and external hemorrhoids with evidence of bleeding. Hemorrhoidal banding was done and was performed by Dr. Ny. Hemoccult was positive. Patient denies any fever or chills. Chest pain has resolved. Cardiac enzymes in the ER was negative. Hemoglobin was 12 on admission dropped to 11.3. Potassium 3.4 this morning. Calcium 8, normal LFTs, creatinine 1.01. Patient will be treated as colitis with levofloxacin and Flagyl. CT abdomen will be obtained Review of Systems Constitutional: Denies chills, Denies fever, Denies lethargy, Denies malaise, Denies poor appetite, Denies weakness, Denies weight loss Eyes: denies decreased vision, denies diplopia, denies discharge, denies pain Ears: deny: decreased hearing Ears, nose, mouth and throat: Denies dental pain, Denies headache, Denies nasal discharge, Denies nose pain Cardiovascular: Endorses chest pain, Denies decreased exercise tolerance, Denies edema, Denies high blood pressure, Denies irregular heart beat, endorses endorses palpitations, Denies paroxysmal nocturnal dyspnea, Denies rapid heart beat, Denies shortness of breath Respiratory: Denies congestion, Denies cough, Denies cough with sputum, Denies dyspnea, Denies home oxygen, Denies wheezing Gastrointestinal: Endorses abdominal pain, endorses change in bowel habits, Denies coffee ground emesis, Denies early satiety, Denies excessive gas, Denies heartburn, Denies hematemesis, endorses hematochezia, Denies loss of appetite, Denies nausea, Denies vomiting Genitourinary: Denies dysuria, Denies flank pain, Denies kidney stones, Denies menorrhagia, Denies urgency, Denies urinary frequency Musculoskeletal: Denies gait dysfunction, Denies limitation of motion, Denies morning stiffness, Denies muscle cramps Integumentary: Denies rash, Denies wounds, Denies brittle nails, Denies change in hair/nails, Denies darkening of skin Neurological: Denies balance difficulties, Denies change in speech, Denies double vision, Denies gait dysfunction, Denies loss of vision, Denies motor disturbance, Denies numbness, Denies paralysis, Denies paresthesias, Denies seizures Psychiatric: Denies anxiety, Denies depression Endocrine: Denies excessive sweating, Denies excessive thirst, Denies high blood sugars, Denies palpitations Hematologic/Lymphatic: Denies easy bruising, Denies lymphadenopathy Past Medical History Past Medical History: Coronary Artery Disease (CAD), Chest Pain / Angina, CVA/ TIA, GI Bleed, Hyperlipidemia, Hypertension, Myocardial Infarction ([place]), Pneumonia Additional Past Medical History / Comment(s): 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 Last Myocardial Infarction Date:: 01-22-2011 History of Any Multi-Drug Resistant Organisms: None Reported Past Surgical History: Adenoidectomy, Cholecystectomy, Coronary Bypass/CABG, Heart Catheterization, Heart Catheterization With Stent, Hernia Repair Additional Past Surgical History / Comment(s): Several caths with last one done 07/02/14 treated medically, total 4 stents (states placed 01/2011), CABG 5 vessel in 2008 (stents came after open heart was done), EGD/colonoscopy, hemorrhoid banding, possible pain injections lower back, umbilical hernia repair Past Anesthesia/Blood Transfusion Reactions: Previous Problems w/ Anesthesia Additional Past Anesthesia/Blood Transfusion Reaction / Comment(s): stated "wakes up slower than normal" Date of Last Stent Placement:: 01-22-2011 Past Psychological History: No Psychological Hx Reported, Anxiety, Depression Additional Psychological History / Comment(s): Pt states he has no current mental health disease. He states he had suicidal thoughts yrs ago at age 43, immediately following CABG in 2008 due to drastic lifestyle changes and being told he could no longer work. lives with brother and neice, does not work Smoking Status: Current every day smoker Past Alcohol Use History: Occasional Additional Past Alcohol Use History / Comment(s): started smoking age 15 never more than 1/2 ppd and later in life took up cigars (one per week at most). quit in oct 2012. one cigar and glass of scotch/week Past Drug Use History: Marijuana Additional Drug Use History / Comment(s): as teenager into 20's occ smoked marijuana NOW seldom - Past Family History Father Family Medical History: Coronary Artery Disease (CAD) Additional Family Medical History / Comment(s): dad is 75. stents, bypass, prostate and lung cancer. Mother Additional Family Medical History / Comment(s): mom 1997 at age 59- brain aneurysm Medications and Allergies Home Medications Medication Instructions Recorded Confirmed Type Atorvastatin [Lipitor] 80 mg PO HS 06/25/13 08/13/17 History HYDROcodone/APAP 10-325MG [[place] 1 tab PO BID PRN 06/25/13 08/13/17 History 10-325] Metoprolol Tartrate [Lopressor] 50 mg PO BID 06/25/13 08/13/17 History Nitroglycerin Sl Tabs [Nitrostat] 0.4 mg SUBLINGUAL Q5M PRN 06/25/13 08/13/17 History Ranolazine [Ranexa] 1,000 mg PO BID 09/23/13 08/13/17 History Pantoprazole Sodium [Protonix] 40 mg PO DAILY 07/02/14 08/13/17 History Isosorbide Mononitrate ER [Imdur] 60 mg PO BID 10/13/15 08/13/17 History Aspirin [Adult Low Dose Aspirin EC] 81 mg PO HS 01/11/16 08/13/17 History Lactulose 20 gm PO BID PRN 04/04/17 08/13/17 History Phentermine HCl [Adipex-P] 37.5 mg PO DAILY 04/04/17 08/13/17 History Enalapril [Vasotec] 20 mg PO DAILY 08/11/17 08/13/17 History Meclizine [Antivert] 25 mg PO TID PRN 08/13/17 08/13/17 History Allergies Allergy/AdvReac Type Severity Reaction Status Date / Time chocolate flavor Allergy Rash/Hives Verified 08/13/17 12:44 [place] And Derivatives Allergy Rash/Hives Verified 08/13/17 12:44 [[place]] Physical Exam Vitals: Vital Signs Temp Pulse Pulse Resp BP BP Pulse Ox 08/14/17 12:00 98 F 69 16 128/91 98 08/14/17 09:14 97.1 F L 74 18 127/78 96 08/14/17 04:00 97.7 F 88 70 18 125/81 96 08/14/17 00:00 98.2 F 71 81 16 129/75 97 08/13/17 20:00 82 96 19 133/78 95 08/13/17 16:00 84 16 132/83 94 L 08/13/17 14:10 69 118/78 07/08/18 14:05 81 128/62 Intake and Output 08/13/17 08/14/17 08/14/17 22:59 06:59 14:59 Intake Total 1036 330.163 480 Output Total 1 Balance 1036 330.163 479 Intake: Intake, IV Titration 800 330.163 Amount Heparin Sod,Pork in 0.45% 170.163 NaCl 25,000 unit In 0.45 % NaCl 1 500ml.bag @ 8.16 UNITS/KG/HR 19.98 mls/hr IV .Q24H [facility] Rx#: [id number] Sodium Chloride 0.9% 1, 800 160 000 ml @ 100 mls/hr IV . Q10H [facility] Rx#:[id number] Oral 236 480 Output: Urine/Stool Mix 1 Other: Voiding Method Toilet Toilet Toilet # Voids 1 # Bowel Movements 1 Weight 122.8 kg - Constitutional General appearance: cooperative, no acute distress, obese - EENT Eyes: anicteric sclerae, PERRLA, normal appearance ENT: hearing grossly normal - Neck Neck: no lymphadenopathy, normal ROM, no other, no rigidity, no stridor, no thyromegaly - Respiratory Respiratory: bilateral: CTA, negative: diminished, dullness, rales, rhonchi - Cardiovascular Rhythm: regular Heart sounds: normal: S1, S2 Abnormal Heart Sounds: no systolic murmur, no diastolic murmur, no rub, no S3 Gallop, no S4 Gallop, no click, no other - Gastrointestinal General gastrointestinal: normal bowel sounds, soft tender in the left lower quadrant, mild tenderness in the right lower quadrant - Integumentary Integumentary: no rash - Neurologic Neurologic: CNII-XII intact - Musculoskeletal Musculoskeletal: gait normal, strength equal bilaterally - Psychiatric Psychiatric: A&O x's 3, appropriate affect Results CBC & Chem 7: 08/14/17 04:49 08/14/17 04:49 Labs: Abnormal Lab Results - Last 24 Hours (Table) 08/13/17 08/13/17 08/14/17 Range/Units 16:39 21:41 04:49 Hgb 11.0 L (13.0-17.5) gm/dL Hct 35.2 L (39.0-53.0) % MCV 77.4 L (80.0-100.0) fL MCH 24.1 L (25.0-35.0) pg RDW 17.6 H (11.5-15.5) % APTT 44.1 H (22.0-30.0) sec Potassium (3.5-5.1) mmol/L Carbon Dioxide 21 L (22-30) mmol/L Calcium 7.9 L (8.4-10.2) mg/dL AST (17-59) U/L Total Protein (6.3-8.2) g/dL Albumin (3.5-5.0) g/dL 08/14/17 08/14/17 Range/Units 04:49 04:49 Hgb (13.0-17.5) gm/dL Hct (39.0-53.0) % MCV (80.0-100.0) fL MCH (25.0-35.0) pg RDW (11.5-15.5) % APTT 35.6 H (22.0-30.0) sec Potassium 3.4 L (3.5-5.1) mmol/L Carbon Dioxide (22-30) mmol/L Calcium 8.0 L (8.4-10.2) mg/dL AST 13 L (17-59) U/L Total Protein 5.4 L (6.3-8.2) g/dL Albumin 3.1 L (3.5-5.0) g/dL Thrombosis Risk Factor Assmnt - DVT/VTE Prophylaxis DVT/VTE Prophylaxis: Mechanical Prophylaxis ordered - Choose All That Apply Any of the Below Risk Factors Present?: Yes Each Factor Represents 1 point: Acute [place], Age 41-60 years, Obesity (BMI >25) Thrombosis Risk Factor Assessment Total Risk Factor Score: 3 Thrombosis Risk Factor Assessment Level: Moderate Risk Assessment and Plan Plan: 1. Syncopal episode. ACS ruled out. Recent echocardiogram with normal LV function. Heparin discontinued. Orthostatics negative. Likely secondary to dehydration. Continue IV fluids. CT abdomen ordered to rule out colitis as patient is quite tender in the left lower quadrant. Levofloxacin and Flagyl introduced. 2. Acute diarrhea likely secondary to colitis. CT abdomen ordered. Levofloxacin 500 mg daily IV with Flagyl 500 mg every 8 hours. Stool cultures sent. C. diff sent. Culture for Giardia sent 3. Benign paroxysmal positional vertigo meclizine as needed 4. CAD with prior bypass surgery and cardiac stents, with recurrent angina cardiology is following, unlikely to be ACS. Continue metoprolol at 50 mg by mouth twice a day continue aspirin, atorvastatin, Imdur and enalapril 20 mg daily 5 COPD without exacerbation will use albuterol when necessary 6. CK D stage II, nephrotoxins will be avoided, hypotension would be avoided, labs will be monitored 7 ischemic cardiomyopathy with angina: With multiple coronary artery disease, he is currently on Ranexa Imdur. 8 hypertension: metoprolol 50 mg twice a day Imd 60 mg twice a day 9 hyperlipidemia: On atorvastatin 80 mg daily. 10recurrent gastritis and GERD: Protonix 40 mg daily. 11 chronic tobacco use patient was counseled regarding ill effects of tobacco to include irreversible damage caused by CVA carcinogenic mutations to genes besides cardiopulmonary destructive damages caused by smoking 12 GI prophylaxis: Has been on Protonix continue medication. CODE STATUS full code Expected length of stay 2 nights
[2017-08-14] MEDS: HYDROcodone/APAP 10-325MG 1 EACH TAB PO PRN ×2 (15:52→23:21)
[2017-08-14] MEDS: POTASSIUM CHLORIDE ER 20 MEQ TAB.ER PO SCH ×2 (15:53→16:21)
[2017-08-14 18:23] LABS: Anisocytosis Slight; HCT 32.6 % (39.0-53.0); HGB 10.3 gm/dL (13.0-17.5); Hypochromasia Marked; MCH 24.7 pg (25.0-35.0); MCHC 31.6 g/dL (31.0-37.0); MCV 78.2 fL (80.0-100.0); Mean Platelet Volume 6.7; Microcytosis Slight; Platelet Count 218 k/uL (150-450); Poikilocytosis Slight; RBC 4.17 m/uL (4.30-5.90); RDW 17.3 % (11.5-15.5); WBC 4.4 k/uL (3.8-10.6)
[2017-08-14] MEDS: ATORVASTATIN 80 MG TAB PO SCH (21:14)
[2017-08-15 02:15] LABS: Anisocytosis Slight; HCT 33.2 % (39.0-53.0); HGB 10.4 gm/dL (13.0-17.5); Hypochromasia Moderate; MCH 24.3 pg (25.0-35.0); MCHC 31.3 g/dL (31.0-37.0); MCV 77.4 fL (80.0-100.0); Mean Platelet Volume 7.1; Microcytosis Slight; Platelet Count 215 k/uL (150-450); RBC 4.28 m/uL (4.30-5.90); RDW 17.4 % (11.5-15.5); WBC 5.4 k/uL (3.8-10.6)
[2017-08-15 06:12] LABS: Anisocytosis Slight; Basophils % (A) 0 %; Eosinophils # (A) 0.1 k/uL (0-0.7); Eosinophils % (A) 2 %; HCT 32.1 % (39.0-53.0); Hypochromasia Marked; Lymphocytes # (A) 1.7 k/uL (1.0-4.8); Lymphocytes % (A) 39 %; MCH 24.4 pg (25.0-35.0); MCV 78.6 fL (80.0-100.0); Mean Platelet Volume 7.5; Microcytosis Slight; Monocytes # (A) 0.3 k/uL (0-1.0); Monocytes % (A) 6 %; Neutrophils # (A) 2.2 k/uL (1.3-7.7); Neutrophils % (A) 49 %; Platelet Count 210 k/uL (150-450); Poikilocytosis Slight; RBC 4.08 m/uL (4.30-5.90); RDW 17.5 % (11.5-15.5); WBC 4.5 k/uL (3.8-10.6)
[2017-08-15 06:26] LABS: ALT 32 U/L (21-72); AST 16 U/L (17-59); Albumin 2.8 g/dL (3.5-5.0); Alkaline Phosphatase 56 U/L (38-126); Anion Gap 10 mmol/L; Blood Urea Nitrogen 7 mg/dL (9-20); Calcium 8.5 mg/dL (8.4-10.2); Carbon Dioxide 26 mmol/L (22-30); Chloride 103 mmol/L (98-107); Glucose 98 mg/dL (74-99); Potassium 3.8 mmol/L (3.5-5.1); Sodium 139 mmol/L (137-145); Total Bilirubin 0.6 mg/dL (0.2-1.3); Total Protein 5.1 g/dL (6.3-8.2)
[2017-08-15] MEDS ORDERED: POTASSIUM CHLORIDE ER 20 MEQ TAB.ER PO SCH (09:00)
--- NOTE | 2017-08-15 09:13 | P.CONS ---
History of Present Illness - Reason for Consult Consult date: 08/15/17 GI bleed positive stool guaiac Requesting physician: Laura Davies - History of Present Illness 51-year-old male with a past medical history of CAD CABG PCI stent hypertension angina presented with chest discomfort as well as one-week history of intermittent red blood-tinged diarrhea guaiac positive stool. He experienced a similar episode of mild rectal bleeding 3 years ago and underwent colonoscopy with Dr. Cardona with findings of proctitis, biopsies negative, as well as internal hemorrhoidal banding 1. Patient states this bleeding is more than before and doesn't feel hemorrhoidal in nature. Some mild lower abdominal discomfort associated with the bleeding. Denies melena or hematemesis. No weight loss fever or chills. No anticoagulants. Home medications include a baby aspirin. Admission hemoglobin 11.6 presently 10. Platelet 262. INR 1.0. BUN 16. Creatinine 1.2. CT abdomen reported no dilated small bowel free air or free fluid. Normal appendix. Liquid stool within the cecum and ascending colon with some surrounding fat stranding correlate for mild nonspecific colitis. Presently receiving broad-spectrum IV antibiotics. Stool culture pending. Review of Systems Constitutional: Denies fever, chills, sweats, weight gain, or loss. HEENT: Negative for migraines, blurred vision or loss, earaches, drainage, tinnitus, oral mucosal lesions, dysphagia, or odynophagia. Cardiac: Admitted with chest pain, denies arrhythmias, or palpitation. Respiratory: Negative for shortness of breath, hemoptysis, cough, or sputum production. Gastrointestinal: See HPI for pertinent findings. Genitourinary: Negative for hematuria, urgency, frequency, polyuria, dysuria, or penile discharge. Musculoskeletal: Negative for muscle aches, swelling, arthritis, and arthralgias. Neurologic: Negative for stroke or TIA. Endocrine: Negative for thyroid problems. Skin: Negative for rash or itching. 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 Last Myocardial Infarction Date:: 01-22-2011 History of Any Multi-Drug Resistant Organisms: None Reported Past Surgical History: Adenoidectomy, Cholecystectomy, Coronary Bypass/CABG, Heart Catheterization, Heart Catheterization With Stent, Hernia Repair Additional Past Surgical History / Comment(s): Several caths with last one done 07/02/14 treated medically, total 4 stents (states placed 01/2011), CABG 5 vessel in 2008 (stents came after open heart was done), EGD/colonoscopy, hemorrhoid banding, possible pain injections lower back, umbilical hernia repair Past Anesthesia/Blood Transfusion Reactions: Previous Problems w/ Anesthesia Additional Past Anesthesia/Blood Transfusion Reaction / Comm: stated "wakes up slower than normal" Date of Last Stent Placement:: 01-22-2011 Past Psychological History: No Psychological Hx Reported, Anxiety, Depression Additional Psychological History / Comment(s): Pt states he has no current mental health disease. He states he had suicidal thoughts yrs ago at age 43, immediately following CABG in 2008 due to drastic lifestyle changes and being told he could no longer work. lives with brother and neice, does not work Smoking Status: Current every day smoker Past Alcohol Use History: Occasional Additional Past Alcohol Use History / Comment(s): started smoking age 15 never more than 1/2 ppd and later in life took up cigars (one per week at most). quit in oct 2012. one cigar and glass of scotch/week Past Drug Use History: Marijuana Additional Drug Use History / Comment(s): as teenager into 20's occ smoked marijuana NOW seldom - Past Family History Father Family Medical History: Coronary Artery Disease (CAD) Additional Family Medical History / Comment(s): dad is 75. stents, bypass, prostate and lung cancer. Mother Additional Family Medical History / Comment(s): mom 1997 at age 59- brain aneurysm Medications and Allergies Home Medications Medication Instructions Recorded Confirmed Type Atorvastatin [Lipitor] 80 mg PO HS 06/25/13 08/13/17 History HYDROcodone/APAP 10-325MG [[place] 1 tab PO BID PRN 06/25/13 08/13/17 History 10-325] Metoprolol Tartrate [Lopressor] 50 mg PO BID 06/25/13 08/13/17 History Nitroglycerin Sl Tabs [Nitrostat] 0.4 mg SUBLINGUAL Q5M PRN 06/25/13 08/13/17 History Ranolazine [Ranexa] 1,000 mg PO BID 09/23/13 08/13/17 History Pantoprazole Sodium [Protonix] 40 mg PO DAILY 07/02/14 08/13/17 History Isosorbide Mononitrate ER [Imdur] 60 mg PO BID 10/13/15 08/13/17 History Aspirin [Adult Low Dose Aspirin EC] 81 mg PO HS 01/11/16 08/13/17 History Lactulose 20 gm PO BID PRN 04/04/17 08/13/17 History Phentermine HCl [Adipex-P] 37.5 mg PO DAILY 04/04/17 08/13/17 History Enalapril [Vasotec] 20 mg PO DAILY 08/11/17 08/13/17 History Meclizine [Antivert] 25 mg PO TID PRN 08/13/17 08/13/17 History Allergies Allergy/AdvReac Type Severity Reaction Status Date / Time chocolate flavor Allergy Rash/Hives Verified 08/13/17 12:44 [place] And Derivatives Allergy Rash/Hives Verified 08/13/17 12:44 [[place]] Physical Exam Vitals: Vital Signs Temp Pulse Pulse Resp BP BP Pulse Ox 08/15/17 04:00 97.1 F L 60 59 L 17 113/74 98 08/15/17 00:00 57 L 68 16 145/96 97 08/14/17 20:00 96.8 F L 65 66 15 133/92 99 08/14/17 16:00 97.2 F L 70 18 137/90 98 08/14/17 12:00 98 F 69 16 128/91 98 08/14/17 09:14 97.1 F L 74 18 127/78 96 Intake and Output 08/14/17 08/15/17 08/15/17 22:59 06:59 14:59 Intake Total 1722 480 Balance 1722 480 Intake: Intake, IV Titration 300 Amount Levofloxacin 500Mg-D5w 100 Pmx 500 mg In Dextrose/ Water 1 100ml.bag @ 100 mls/hr IVPB Q24H [facility] Rx#: [id number] metroNIDAZOLE-NS PMX 500 200 mg In Saline 1 100ml.bag @ 100 mls/hr IVPB Q8HR [facility] Rx#:[id number] Oral 1422 480 Other: Voiding Method Toilet Toilet # Voids 2 # Bowel Movements 5 Weight 125.3 kg General appearance: The patient is alert, oriented, in no acute distress. HET: Head is normocephalic and atraumatic. Pupils are equal and reactive. Oropharynx is clear without lesions. Neck: Supple without lymphadenopathy. Trachea midline. Heart: S1 S2. Regular rate and rhythm. Lungs: No crackles or wheezes are heard. Abdomen: Soft, nontender, nondistended with bowel sounds. No peritoneal signs. No palpable organomegaly or masses. Extremities: Normal skin color and turgor. No cyanosis, rash, ulceration, clubbing, or edema. Radial and pedal pulses are 2/4 bilaterally. Neurological: No focal deficits. Strength and sensation are grossly intact. Results CBC & Chem 7: 08/15/17 05:59 08/15/17 05:59 Labs: Abnormal Lab Results - Last 24 Hours (Table) 08/14/17 08/15/17 08/15/17 Range/Units 17:59 01:58 05:59 RBC 4.17 L 4.28 L 4.08 L (4.30-5.90) m/uL Hgb 10.3 L 10.4 L 10.0 L (13.0-17.5) gm/dL Hct 32.6 L 33.2 L 32.1 L (39.0-53.0) % MCV 78.2 L 77.4 L 78.6 L (80.0-100.0) fL MCH 24.7 L 24.3 L 24.4 L (25.0-35.0) pg RDW 17.3 H 17.4 H 17.5 H (11.5-15.5) % BUN (9-20) mg/dL AST (17-59) U/L Total Protein (6.3-8.2) g/dL Albumin (3.5-5.0) g/dL 08/15/17 Range/Units 05:59 RBC (4.30-5.90) m/uL Hgb (13.0-17.5) gm/dL Hct (39.0-53.0) % MCV (80.0-100.0) fL MCH (25.0-35.0) pg RDW (11.5-15.5) % BUN 7 L (9-20) mg/dL AST 16 L (17-59) U/L Total Protein 5.1 L (6.3-8.2) g/dL Albumin 2.8 L (3.5-5.0) g/dL Microbiology - Last 24 Hours (Table) 08/14/17 11:05 Stool Culture - Preliminary Stool CT scan - abdomen: report reviewed (Dr. Hermosillo) Assessment and Plan (1) Rectal bleeding Narrative/Plan: 51-year-old male history of nonspecific proctitis hemorrhoids admitted with chest pain and 1 week history of blood-tinged diarrhea with lower abdominal discomfort CT reported nonspecific colitis type changes in the cecum and ascending colon possible ischemic possible inflammatory possible self limiting infectious. Current Visit: Yes Status: Acute Code(s): K62.5 - HEMORRHAGE OF ANUS AND RECTUM SNOMED Code(s): 38236774 (2) Chest pain Current Visit: Yes Status: Acute Code(s): R07.9 - CHEST PAIN, UNSPECIFIED SNOMED Code(s): 14023241 (3) History of proctitis Current Visit: Yes Status: Resolved Code(s): Z87.19 - PERSONAL HISTORY OF OTHER DISEASES OF THE DIGESTIVE SYSTEM SNOMED Code(s): 239005555 (4) History of hemorrhoids Current Visit: Yes Status: Resolved Code(s): Z87.19 - PERSONAL HISTORY OF OTHER DISEASES OF THE DIGESTIVE SYSTEM SNOMED Code(s): 787625665 Plan: 1. Full liquid diet for lunch followed by clear liquid diet for dinner. Nothing by mouth after clear liquid breakfast for colonoscopy evaluation tomorrow afternoon. Stool for C. diff requested. Continue IV antibiotics. We' ll continue to follow with you. 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 The patient has indicated understanding and acceptance of the risks and procedures discussed. Thank you for this kind referral and the opportunity to participate in the care of your patient. This consultation was discussed with Dr. Hermosillo. The impression and plan of care have been directed as dictated.
[2017-08-15] MEDS: metroNIDAZOLE-NS PMX 500 MG in SALINE 1 100ML.BAG IVPB SCH ×3 (10:01→22:37)
[2017-08-15] MEDS: ISOSORBIDE MONONITRATE ER 60 MG TAB.ER.24H PO SCH ×2 (10:02→20:24)
[2017-08-15] MEDS: LISINOPRIL 20 MG TAB PO SCH (10:02)
[2017-08-15] MEDS: METOPROLOL TARTRATE 50 MG TAB PO SCH ×2 (10:03→20:24)
[2017-08-15] MEDS: PANTOPRAZOLE 40 MG/10 ML VIAL IVP SCH (10:03)
[2017-08-15] MEDS: RANOLAZINE 500 MG TAB.ER.12H PO SCH ×2 (10:04→20:24)
--- NOTE | 2017-08-15 10:54 | P.PN ---
Subjective Progress Note Date: 08/15/17 This is a 51-year-old gentleman patient of Dr. Hernández/ Dr Jorgensen He has underlying history of CAD, CABG, previous CVA involving the occipital lobe, chronic tobacco use and cigar use, moderate alcohol consumption. His cardiac history are as follows:coronary artery disease multiple procedure including bypass grafting 2008 which is HOPKINS to the LAD and saphenous vein graft to the diagonal 1 saphenous vein graft to the diagonal 2 and saphenous vein graft to the obtuse marginal and right coronary artery. Patient also had heart cath with multiple angioplasty in the last a few years his last heart cath was in June 2014 which revealed patent saphenous vein graft to the obtuse marginal diagonal 1 and diagonal 2 patent LAD free of any atherosclerotic disease with atrophic HOPKINS to the LAD and patent saphenous vein graft to the obtuse marginal . August 2015, echocardiogram at that time showed ejection fraction of 50-55% inferoseptal LV wall motion hypokinesia mild aortic valve sclerosis without stenosis, no aortic regurgitation, mild MR and mild TR no pulmonary hypertension aortic root is normal no pericardial effusion at that time, most recent Lexiscan stress test 06/06/2016with no stress induced ischemia. He was last seen in 2017 for near syncope which was likely secondary to benign positional vertigo versus vestibular neuritis. Patient was also positive for apley maneuver. Neurology evaluation is negative. Echocardiogram had normal LV systolic function and cardiology's office Patient comes in this time with an episode of syncope while he was in the temple associated with shortness of breath, chest pain, sweating and palpitation. He lost his consciousness. EKG done in the ER suggested some T- wave inversion in the lateral leads with sinus rhythm. Previous EKG had similar changes in the lateral leads. Patient was briefly on heparin drip. He also complained of right lower quadrant abdominal pain with episodes of diarrhea for the past few days. Patient noticed some bright red blood in the diarrhea. He does have history of hemorrhoids and that it is more than his regular hemorrhoids. He has history of colonoscopy in 2014 which suggested mild proctitis and internal and external hemorrhoids with evidence of bleeding. Hemorrhoidal banding was done and was performed by Dr. Ny. Hemoccult was positive. Patient denies any fever or chills. Chest pain has resolved. Cardiac enzymes in the ER was negative. Hemoglobin was 12 on admission dropped to 11.3. Potassium 3.4 this morning. Calcium 8, normal LFTs, creatinine 1.01. Patient will be treated as colitis with levofloxacin and Flagyl. CT abdomen will be obtained 08/15: Cardiology has evaluated and troponins of been negative on 3 draws and acute coronary syndrome has been ruled out. There are following on an as- needed basis only and patient has a follow-up appointment with Dr. Jorgensen in the office. Repeat lab work shows a hemoglobin of 10.0. Cryptosporidium and Giardia are negative. Stool culture is in progress. CAT scan of the abdomen and pelvis reveals liquid stool within the cecum and ascending colon with some surrounding fat stranding. Correlate for mild nonspecific colitis. Appendix appears normal. Persistent nephrograms. 6 minute delay kidney images performed and no excreted contrast identified within the collecting systems. Correlate with renal function is acute kidney injury including ATN and contrast nephropathy are in the differential. Patient has been seen by Dr. Hermosillo with plan for colonoscopy tomorrow afternoon. Patient states he continues to have 3- 4 diarrheal stools per day and still bloody. He denies dizziness with ambulation , chest pain and shortness of breath. Patient will be transferred to med-surg floor. Objective - Vital Signs Vital signs: Vital Signs Temp 97.1 F L 08/15/17 04:00 Pulse 59 L 08/15/17 04:00 Resp 17 08/15/17 04:00 BP 113/74 08/15/17 04:00 Pulse Ox 98 08/15/17 04:00 Intake & Output 08/14/17 08/15/17 08/15/17 18:59 06:59 18:59 Intake Total 2202 480 Output Total 1 Balance 2201 480 Weight 125.3 kg Intake: Intake, IV Titration 300 Amount Levofloxacin 500Mg-D5w 100 Pmx 500 mg In Dextrose/ Water 1 100ml.bag @ 100 mls/hr IVPB Q24H [facility] Rx#: [id number] metroNIDAZOLE-NS PMX 500 200 mg In Saline 1 100ml.bag @ 100 mls/hr IVPB Q8HR [facility] Rx#:[id number] Oral 1902 480 Output: Urine/Stool Mix 1 Other: Voiding Method Toilet Toilet # Voids 1 2 # Bowel Movements 5 - Exam General appearance: cooperative, no acute distress, obese - EENT Eyes: anicteric sclerae, PERRLA, normal appearance ENT: hearing grossly normal - Neck Neck: no lymphadenopathy, normal ROM, no other, no rigidity, no stridor, no thyromegaly - Respiratory Respiratory: bilateral: CTA, negative: diminished, dullness, rales, rhonchi - Cardiovascular Rhythm: regular Heart sounds: normal: S1, S2 Abnormal Heart Sounds: no systolic murmur, no diastolic murmur, no rub, no S3 Gallop, no S4 Gallop, no click, no other - Gastrointestinal General gastrointestinal: normal bowel sounds, soft tender in the left lower quadrant, mild tenderness in the right lower quadrant - Integumentary Integumentary: no rash - Neurologic Neurologic: CNII-XII intact - Musculoskeletal Musculoskeletal: gait normal, strength equal bilaterally - Psychiatric Psychiatric: A&O x's 3, appropriate affect - Labs CBC & Chem 7: 08/15/17 05:59 08/15/17 05:59 Labs: Abnormal Lab Results - Last 24 Hours (Table) 08/14/17 08/15/17 08/15/17 Range/Units 17:59 01:58 05:59 RBC 4.17 L 4.28 L 4.08 L (4.30-5.90) m/uL Hgb 10.3 L 10.4 L 10.0 L (13.0-17.5) gm/dL Hct 32.6 L 33.2 L 32.1 L (39.0-53.0) % MCV 78.2 L 77.4 L 78.6 L (80.0-100.0) fL MCH 24.7 L 24.3 L 24.4 L (25.0-35.0) pg RDW 17.3 H 17.4 H 17.5 H (11.5-15.5) % BUN (9-20) mg/dL AST (17-59) U/L Total Protein (6.3-8.2) g/dL Albumin (3.5-5.0) g/dL 08/15/17 Range/Units 05:59 RBC (4.30-5.90) m/uL Hgb (13.0-17.5) gm/dL Hct (39.0-53.0) % MCV (80.0-100.0) fL MCH (25.0-35.0) pg RDW (11.5-15.5) % BUN 7 L (9-20) mg/dL AST 16 L (17-59) U/L Total Protein 5.1 L (6.3-8.2) g/dL Albumin 2.8 L (3.5-5.0) g/dL Microbiology - Last 24 Hours (Table) 08/14/17 11:05 Stool Culture - Preliminary Stool Assessment and Plan Plan: 1. Syncopal episode. ACS ruled out. Recent echocardiogram with normal LV function. Heparin discontinued. Orthostatics negative. Likely secondary to dehydration. Continue IV fluids. CT abdomen as above. Levofloxacin and Flagyl introduced. 2. Acute diarrhea likely secondary to colitis. CT abdomen as above. Levofloxacin 500 mg daily IV with Flagyl 500 mg every 8 hours. Stool cultures sent. C. diff sent. Culture for Giardia sent. Colonoscopy for tomorrow with Dr. Hermosillo. 3. Benign paroxysmal positional vertigo meclizine as needed 4. CAD with prior bypass surgery and cardiac stents, with recurrent angina cardiology is following, unlikely to be ACS. Continue metoprolol at 50 mg by mouth twice a day continue aspirin, atorvastatin, Imdur and enalapril 20 mg daily 5. COPD without exacerbation will use albuterol when necessary 6. CKD stage II, nephrotoxins will be avoided, hypotension would be avoided, labs will be monitored 7. Ischemic cardiomyopathy with angina: With multiple coronary artery disease, he is currently on Ranexa Imdur. 8. Hypertension: metoprolol 50 mg twice a day Imd 60 mg twice a day 9. Hyperlipidemia: On atorvastatin 80 mg daily. 10. Recurrent gastritis and GERD: Protonix 40 mg daily. 11. Chronic tobacco use patient was counseled regarding ill effects of tobacco to include irreversible damage caused by CVA carcinogenic mutations to genes besides cardiopulmonary destructive damages caused by smoking 12. GI prophylaxis: Has been on Protonix continue medication. CODE STATUS full code Discharge plan: return home Impression and plan of care have been directed as dictated by the signing physician. Karissa Moncada nurse practitioner acting as scribe for signing physician.
[2017-08-15] MEDS: LEVOFLOXACIN 500MG-D5W PMX 500 MG in DEXTROSE/WATER 1 100ML.BAG IVPB SCH (12:50)
[2017-08-15] MEDS: SODIUM CHLORIDE 0.9% 1,000 ML IV SCH (13:50)
[2017-08-15] MEDS ORDERED: PEG 3350-NA SULF,BICARB,CL/KCL 4,000 ML BOTTLE PO ONE (16:00)
[2017-08-15] MEDS: ATORVASTATIN 80 MG TAB PO SCH (20:24)
[2017-08-16] MEDS: SODIUM CHLORIDE 0.9% 1,000 ML IV SCH ×2 (05:23→17:12)
[2017-08-16 06:18] LABS: Anisocytosis Slight; Basophils % (A) 0 %; Eosinophils # (A) 0.1 k/uL (0-0.7); Eosinophils % (A) 2 %; HCT 35.5 % (39.0-53.0); HGB 11.1 gm/dL (13.0-17.5); Hypochromasia Moderate; Lymphocytes # (A) 1.6 k/uL (1.0-4.8); Lymphocytes % (A) 36 %; MCHC 31.2 g/dL (31.0-37.0); MCV 76.8 fL (80.0-100.0); Mean Platelet Volume 8.5; Microcytosis Slight; Monocytes # (A) 0.2 k/uL (0-1.0); Monocytes % (A) 5 %; Neutrophils # (A) 2.4 k/uL (1.3-7.7); Neutrophils % (A) 54 %; Platelet Count 240 k/uL (150-450); RBC 4.62 m/uL (4.30-5.90); RDW 17.6 % (11.5-15.5); WBC 4.4 k/uL (3.8-10.6)
[2017-08-16] MEDS: ISOSORBIDE MONONITRATE ER 60 MG TAB.ER.24H PO SCH ×2 (06:33→22:27)
[2017-08-16] MEDS: LISINOPRIL 20 MG TAB PO SCH (06:33)
[2017-08-16] MEDS: METOPROLOL TARTRATE 50 MG TAB PO SCH ×2 (06:34→22:27)
[2017-08-16] MEDS: PANTOPRAZOLE 40 MG/10 ML VIAL IVP SCH (06:34)
[2017-08-16] MEDS: RANOLAZINE 500 MG TAB.ER.12H PO SCH ×2 (06:34→22:27)
[2017-08-16 06:43] LABS: ALT 31 U/L (21-72); AST 19 U/L (17-59); Albumin 3.1 g/dL (3.5-5.0); Alkaline Phosphatase 65 U/L (38-126); Anion Gap 8 mmol/L; Blood Urea Nitrogen 5 mg/dL (9-20); Calcium 8.8 mg/dL (8.4-10.2); Carbon Dioxide 28 mmol/L (22-30); Chloride 102 mmol/L (98-107); Glucose 105 mg/dL (74-99); Potassium 3.9 mmol/L (3.5-5.1); Sodium 138 mmol/L (137-145); Total Bilirubin 0.6 mg/dL (0.2-1.3); Total Protein 5.5 g/dL (6.3-8.2)
[2017-08-16] MEDS: metroNIDAZOLE-NS PMX 500 MG in SALINE 1 100ML.BAG IVPB SCH ×3 (07:34→22:28)
[2017-08-16] MEDS: LEVOFLOXACIN 500MG-D5W PMX 500 MG in DEXTROSE/WATER 1 100ML.BAG IVPB SCH (10:47)
[2017-08-16] MEDS ORDERED: amLODIPine 5 MG TAB PO STA (13:09)
--- NOTE | 2017-08-16 13:10 | P.PN ---
Subjective Progress Note Date: 08/16/17 This is a pleasant 51-year-old gentleman who sees Dr. Baer in the office as an outpatient with a past medical history significant for coronary artery disease and prior coronary artery bypass grafting in 2008 and coronary artery stenting in 2010 with unknown details at this point, hypertension, dyslipidemia , presented to the emergency room complaining of chest discomfort. The patient was in his usual state of health until earlier today when he was in the [employer]ab[employer] and started experiencing chest discomfort, in the mid of the chest, as a dull/ pressure kind of discomfort, without any radiation to the arm or neck or shoulders and without any associated symptoms of shortness of breath, sweating, dizziness or lightheadedness. He stated that he lost his consciousness briefly. The EKG showed sinus rhythm with T-wave inversion in the high lateral leads, similar to prior EKG. Troponins negative 3. Stress test performed in May of this year at the office was negative for any reversible ischemia. Patient did notice some blood in his stool last evening and again this morning, stool was sent to the lab and came back positive for occult. [place] any chest discomfort this morning, no dizziness or lightheadedness, breathing is stable. Blood pressure 126/70 with a heart rate in the 70s, temperature 97.1. 96% on room air. White blood cell count 4.7, hemoglobin 11, platelet count 220. Sodium 141, potassium 3.4, BUN 12, creatinine 1.0. Patient is currently on clear liquids as a request for GI service has been made. 08/16/2017 Patient seen and examined this morning, denies any chest discomfort, hemoglobin 11.1 today. Patient is scheduled to undergo colonoscopy today. Troponins negative. Blood pressure 145/100, 148/98. Objective - Vital Signs Vital signs: Vital Signs Temp 97.4 F L 08/16/17 11:38 Pulse 59 L 08/16/17 11:50 Resp 18 08/16/17 11:50 BP 148/98 08/16/17 12:31 Pulse Ox 98 08/16/17 11:38 Intake & Output 08/15/17 08/16/17 08/16/17 18:59 06:59 18:59 Intake Total 720 120 Output Total 1999 Balance -1280 120 Weight 125.3 kg Intake: Oral 720 120 Output: Urine 1999 Other: Voiding Method Toilet Toilet Toilet - Exam PHYSICAL EXAMINATION: GENERAL: 51-year-old gentleman in no acute distress at the time of my examination HEENT: Head is atraumatic, normocephalic. Pupils equal, round. Sclera anicteric. Conjunctiva are clear. Mucous membranes of the mouth are moist. Neck is supple. There is no elevated jugular venous pressure.] bruit is heard. HEART EXAMINATION: Heart S1, S2 normal. No murmur or gallop heard. CHEST EXAMINATION: Lungs are clear to auscultation and precussion. No chest wall tenderness is noted on palpation or with deep breathing. ABDOMEN: Soft, nontender. Bowel sounds are heard. No organomegaly noted. EXTREMITIES: 2+ peripheral pulses with no evidence of peripheral edema and no calf tenderness noted. NEUROLOGIC patient is awake, alert and oriented ?-3. . - Labs CBC & Chem 7: 08/16/17 06:04 08/16/17 06:04 Labs: Abnormal Lab Results - Last 24 Hours (Table) 08/16/17 08/16/17 Range/Units 06:04 06:04 Hgb 11.1 L (13.0-17.5) gm/dL Hct 35.5 L (39.0-53.0) % MCV 76.8 L (80.0-100.0) fL MCH 24.0 L (25.0-35.0) pg RDW 17.6 H (11.5-15.5) % BUN 5 L (9-20) mg/dL Glucose 105 H (74-99) mg/dL Total Protein 5.5 L (6.3-8.2) g/dL Albumin 3.1 L (3.5-5.0) g/dL Assessment and Plan Plan: Assessment #1 chest discomfort. Troponins negative 3. A stress test performed as an outpatient in May of this year was negative for any reversible ischemia. #2 known severe underlying CAD and prior revascularization in the term off CABG and stenting #3 hypertension #4 dyslipidemia #5 history of syncope #6 lower GI bleed Plan From cardiology's perspective acute coronary event has been ruled out. Patient now will have a GI workup because of the lower GI bleeding. Anoscopy is scheduled for today, we will give the patient one time dose of Norvasc for hypertension. We will follow him now on an as-needed basis only, please don't hesitate to call with any questions. Follow-up appointment will be made with Dr. Jorgensen in the office post discharge. DNP note has been reviewed, I agree with a documented findings and plan of care. Patient was seen and examined.
--- NOTE | 2017-08-16 13:20 | P.PN ---
Subjective Progress Note Date: 08/16/17 This is a 51-year-old gentleman patient of Dr. Hernández/ Dr Jorgensen He has underlying history of CAD, CABG, previous CVA involving the occipital lobe, chronic tobacco use and cigar use, moderate alcohol consumption. His cardiac history are as follows:coronary artery disease multiple procedure including bypass grafting 2008 which is HOPKINS to the LAD and saphenous vein graft to the diagonal 1 saphenous vein graft to the diagonal 2 and saphenous vein graft to the obtuse marginal and right coronary artery. Patient also had heart cath with multiple angioplasty in the last a few years his last heart cath was in June 2014 which revealed patent saphenous vein graft to the obtuse marginal diagonal 1 and diagonal 2 patent LAD free of any atherosclerotic disease with atrophic HOPKINS to the LAD and patent saphenous vein graft to the obtuse marginal . August 2015, echocardiogram at that time showed ejection fraction of 50-55% inferoseptal LV wall motion hypokinesia mild aortic valve sclerosis without stenosis, no aortic regurgitation, mild MR and mild TR no pulmonary hypertension aortic root is normal no pericardial effusion at that time, most recent Lexiscan stress test 06/06/2016with no stress induced ischemia. He was last seen in 2017 for near syncope which was likely secondary to benign positional vertigo versus vestibular neuritis. Patient was also positive for apley maneuver. Neurology evaluation is negative. Echocardiogram had normal LV systolic function and cardiology's office Patient comes in this time with an episode of syncope while he was in the [employer] associated with shortness of breath, chest pain, sweating and palpitation. He lost his consciousness. EKG done in the ER suggested some T- wave inversion in the lateral leads with sinus rhythm. Previous EKG had similar changes in the lateral leads. Patient was briefly on heparin drip. He also complained of right lower quadrant abdominal pain with episodes of diarrhea for the past few days. Patient noticed some bright red blood in the diarrhea. He does have history of hemorrhoids and that it is more than his regular hemorrhoids. He has history of colonoscopy in 2014 which suggested mild proctitis and internal and external hemorrhoids with evidence of bleeding. Hemorrhoidal banding was done and was performed by Dr. Ny. Hemoccult was positive. Patient denies any fever or chills. Chest pain has resolved. Cardiac enzymes in the ER was negative. Hemoglobin was 12 on admission dropped to 11.3. Potassium 3.4 this morning. Calcium 8, normal LFTs, creatinine 1.01. Patient will be treated as colitis with levofloxacin and Flagyl. CT abdomen will be obtained 08/15: Cardiology has evaluated and troponins of been negative on 3 draws and acute coronary syndrome has been ruled out. There are following on an as- needed basis only and patient has a follow-up appointment with Dr. Jorgensen in the office. Repeat lab work shows a hemoglobin of 10.0. Cryptosporidium and Giardia are negative. Stool culture is in progress. CAT scan of the abdomen and pelvis reveals liquid stool within the cecum and ascending colon with some surrounding fat stranding. Correlate for mild nonspecific colitis. Appendix appears normal. Persistent nephrograms. 6 minute delay kidney images performed and no excreted contrast identified within the collecting systems. Correlate with renal function is acute kidney injury including ATN and contrast nephropathy are in the differential. Patient has been seen by Dr. Hermosillo with plan for colonoscopy tomorrow afternoon. Patient states he continues to have 3- 4 diarrheal stools per day and still bloody. He denies dizziness with ambulation , chest pain and shortness of breath. Patient will be transferred to med-surg floor. 08/16: Patient's hemoglobin remained stable at 11.1. BUN 5 and creatinine 1. C. difficile toxin is negative. Heart rate is running in the 50s and 60s. Blood pressure was elevated during the night but improved this morning. Patient is scheduled for colonoscopy at 1:30 today. Objective - Vital Signs Vital signs: Vital Signs Temp 97.0 F L 08/16/17 07:32 Pulse 59 L 08/16/17 07:38 Resp 18 08/16/17 07:38 BP 128/82 08/16/17 07:32 Pulse Ox 96 08/16/17 07:32 Intake & Output 08/15/17 08/16/17 08/16/17 18:59 06:59 18:59 Intake Total 720 Output Total 1999 Balance -1280 Weight 125.3 kg Intake: Oral 720 Output: Urine 1999 Other: Voiding Method Toilet Toilet Toilet - Exam General appearance: cooperative, no acute distress, obese - EENT Eyes: anicteric sclerae, PERRLA, normal appearance ENT: hearing grossly normal - Neck Neck: no lymphadenopathy, normal ROM, no other, no rigidity, no stridor, no thyromegaly - Respiratory Respiratory: bilateral: CTA, negative: diminished, dullness, rales, rhonchi - Cardiovascular Rhythm: regular Heart sounds: normal: S1, S2 Abnormal Heart Sounds: no systolic murmur, no diastolic murmur, no rub, no S3 Gallop, no S4 Gallop, no click, no other - Gastrointestinal General gastrointestinal: normal bowel sounds, soft tender in the left lower quadrant, mild tenderness in the right lower quadrant - Integumentary Integumentary: no rash - Neurologic Neurologic: CNII-XII intact - Musculoskeletal Musculoskeletal: gait normal, strength equal bilaterally - Psychiatric Psychiatric: A&O x's 3, appropriate affect - Labs CBC & Chem 7: 08/16/17 06:04 08/16/17 06:04 Labs: Abnormal Lab Results - Last 24 Hours (Table) 08/16/17 08/16/17 Range/Units 06:04 06:04 Hgb 11.1 L (13.0-17.5) gm/dL Hct 35.5 L (39.0-53.0) % MCV 76.8 L (80.0-100.0) fL MCH 24.0 L (25.0-35.0) pg RDW 17.6 H (11.5-15.5) % BUN 5 L (9-20) mg/dL Glucose 105 H (74-99) mg/dL Total Protein 5.5 L (6.3-8.2) g/dL Albumin 3.1 L (3.5-5.0) g/dL Assessment and Plan Plan: 1. Syncopal episode. ACS ruled out. Recent echocardiogram with normal LV function. Heparin discontinued. Orthostatics negative. Likely secondary to dehydration. Continue IV fluids. CT abdomen as above. Levofloxacin and Flagyl introduced. 2. Acute bloody diarrhea likely secondary to colitis. CT abdomen as above. Levofloxacin 500 mg daily IV with Flagyl 500 mg every 8 hours. Stool cultures sent. C. diff sent. Culture for Giardia sent. Colonoscopy with Dr. Hermosillo. 3. Benign paroxysmal positional vertigo meclizine as needed 4. CAD with prior bypass surgery and cardiac stents, with recurrent angina cardiology is following, unlikely to be ACS. Continue metoprolol at 50 mg by mouth twice a day continue aspirin, atorvastatin, Imdur and enalapril 20 mg daily 5. COPD without exacerbation will use albuterol when necessary 6. CKD stage II, nephrotoxins will be avoided, hypotension would be avoided, labs will be monitored 7. Ischemic cardiomyopathy with angina: With multiple coronary artery disease, he is currently on Ranexa Imdur. 8. Hypertension: metoprolol 50 mg twice a day Imd 60 mg twice a day 9. Hyperlipidemia: On atorvastatin 80 mg daily. 10. Recurrent gastritis and GERD: Protonix 40 mg daily. 11. Chronic tobacco use patient was counseled regarding ill effects of tobacco to include irreversible damage caused by CVA carcinogenic mutations to genes besides cardiopulmonary destructive damages caused by smoking 12. GI prophylaxis: Has been on Protonix continue medication. CODE STATUS full code Discharge plan: return home Impression and plan of care have been directed as dictated by the signing physician. Karissa Moncada nurse practitioner acting as scribe for signing physician.
[2017-08-16] MEDS ORDERED: PROPOFOL 10 MG/ML 20 ML VIAL IV ONE (13:54)
[2017-08-16] MEDS ORDERED: IV FLUID CONTINUATION 900 ML IV ONE (13:58)
--- NOTE | 2017-08-16 14:32 | P.PCN ---
Date of Procedure: 08/16/17 Procedure(s) Performed: Procedure: Colonoscopy and biopsy. Preoperative diagnosis: Lower GI bleeding. Postoperative diagnosis: 1. Low-grade internal hemorrhoids not bleeding at the time of this exam. 2. Nonspecific isolated changes in the rectum of unclear clinical significance, biopsies obtained. 3. Minimal diverticulosis with no evidence of bleeding. Preparation: GoLYTELY prep. Sedation: Was provided by anesthesia. Brief clinical history: The patient is a 51-year-old male with a past medical history of CAD CABG PCI stent hypertension angina presented with chest discomfort and one-week history of intermittent red blood-tinged diarrhea with guaiac positive stools. He experienced a similar episode of mild rectal bleeding 3 years ago and underwent colonoscopy with Dr. Cardona with findings of proctitis, biopsies negative, as well as internal hemorrhoidal banding 1. Patient states this bleeding is more than before and doesn't feel hemorrhoidal in nature. Some mild lower abdominal discomfort associated with the bleeding. Denies melena or hematemesis. No weight loss fever or chills. No anticoagulants. Home medications include a baby aspirin. Admission hemoglobin 12.3 presently 11. Platelet 262. INR 1.0. BUN 16. Creatinine 1.2. CT abdomen reported no dilated small bowel, free air or free fluid. Normal appendix. Liquid stool within the cecum and ascending colon with some surrounding fat stranding correlate for mild nonspecific colitis. Presently receiving broad-spectrum IV antibiotics. Stool culture obtained. The details are summarized in the history and physical and dictated consultations and progress notes. This evaluation is to assess for a potential source of bleeding. Procedure: With the patient on his left lateral decubitus position and after informed consent and adequate sedation, the perianal area was inspected and it did not show any fissures or fistulas. There were no masses felt on digital rectal examination. The Olympus CFQ 160L video colonoscope was then inserted in the rectum in the usual fashion and advanced to the cecum. There was isolated nonspecific changes in the rectum very close to the anorectal junction consisting of erythema, edema, friability and prominent telangiectatic vessel but no spontaneous bleeding. Elsewhere, the mucosa appeared healthy without any suggestion of colitis. No polyps or tumors were seen. There was occasional small diverticular orifices seen in the sigmoid and around the hepatic flexure with no evidence of bleeding or diverticulitis. I obtained biopsies in the rectum then I retroflexed endoscope in the rectum before the endoscope was withdrawn. Low-grade internal hemorrhoids were noted but there was no bleeding. The patient tolerated the procedure well. Plan: The patient was reassured. Discussed dietary measures and local care for hemorrhoids. Doubt we are dealing with nonspecific inflammatory bowel disease. An infectious or self-limiting theology maybe a possibility. Will await biopsy results. Will make further plans based on his course and biopsy results.
[2017-08-16] MEDS: amLODIPine 5 MG TAB PO SCH (17:11)
[2017-08-16] MEDS ORDERED: diphenhydrAMINE 25 MG CAP PO PRN (19:00)
[2017-08-16] MEDS: predniSONE 20 MG TAB PO SCH (19:18)
[2017-08-16] MEDS: ATORVASTATIN 80 MG TAB PO SCH (22:27)
[2017-08-17 03:20] VITALS: RESP 18
[2017-08-17 06:33] LABS: Anisocytosis Slight; Basophils % (A) 0 %; Eosinophils % (A) 0 %; HCT 34.6 % (39.0-53.0); HGB 10.8 gm/dL (13.0-17.5); Hypochromasia Moderate; Lymphocytes # (A) 0.8 k/uL (1.0-4.8); Lymphocytes % (A) 15 %; MCH 24.6 pg (25.0-35.0); MCHC 31.3 g/dL (31.0-37.0); MCV 78.7 fL (80.0-100.0); Mean Platelet Volume 6.5; Microcytosis Slight; Monocytes # (A) 0.1 k/uL (0-1.0); Monocytes % (A) 2 %; Neutrophils # (A) 4.5 k/uL (1.3-7.7); Neutrophils % (A) 82 %; Platelet Count 310 k/uL (150-450); RDW 17.8 % (11.5-15.5); WBC 5.5 k/uL (3.8-10.6)
[2017-08-17 06:53] LABS: ALT 53 U/L (21-72); AST 56 U/L (17-59); Alkaline Phosphatase 67 U/L (38-126); Anion Gap 10 mmol/L; Blood Urea Nitrogen 8 mg/dL (9-20); Calcium 8.5 mg/dL (8.4-10.2); Carbon Dioxide 26 mmol/L (22-30); Chloride 104 mmol/L (98-107); Glucose 136 mg/dL (74-99); Potassium 4.3 mmol/L (3.5-5.1); Sodium 140 mmol/L (137-145); Total Bilirubin 0.4 mg/dL (0.2-1.3); Total Protein 5.5 g/dL (6.3-8.2)
[2017-08-17] MEDS: SODIUM CHLORIDE 0.9% 1,000 ML IV SCH (07:09)
[2017-08-17] MEDS: METOPROLOL TARTRATE 50 MG TAB PO SCH (07:46)
[2017-08-17] MEDS: amLODIPine 5 MG TAB PO SCH (07:47)
[2017-08-17] MEDS: ISOSORBIDE MONONITRATE ER 60 MG TAB.ER.24H PO SCH (07:47)
[2017-08-17] MEDS: predniSONE 20 MG TAB PO SCH (07:47)
[2017-08-17] MEDS: PANTOPRAZOLE 40 MG/10 ML VIAL IVP SCH (07:47)
[2017-08-17] MEDS: LISINOPRIL 20 MG TAB PO SCH (07:47)
[2017-08-17] MEDS: metroNIDAZOLE-NS PMX 500 MG in SALINE 1 100ML.BAG IVPB SCH (07:55)
[2017-08-17 08:01] VITALS: PULSE 76; TEMP 97.6
[2017-08-17] MEDS: LEVOFLOXACIN 500MG-D5W PMX 500 MG in DEXTROSE/WATER 1 100ML.BAG IVPB SCH (11:14)
[2017-08-17 11:23] VITALS: BP 125/83
--- NOTE | 2017-08-17 11:45 | P.PN ---
Subjective Progress Note Date: 08/17/17 Principal diagnosis: Rectal bleeding Status post colonoscopy yesterday with findings of hemorrhoids diverticulosis isolated changes in the rectum status post biopsies no active bleeding. Anticipate discharge today. Denies abdominal pain. No active rectal bleeding. Hemoglobin 10.8. Objective - Vital Signs Vital signs: Vital Signs Temp 97.6 F 08/17/17 11:19 Pulse 76 08/17/17 11:19 Resp 18 08/17/17 11:19 BP 125/83 08/17/17 11:19 Pulse Ox 93 L 08/17/17 11:19 Intake & Output 08/16/17 08/17/17 08/17/17 18:59 06:59 18:59 Intake Total 460 400 Output Total 700 700 0 Balance -240 -700 400 Weight 124.5 kg Intake: IV 100 Oral 360 400 Output: Urine 700 700 0 Other: Voiding Method Toilet Toilet Toilet # Voids 1 - Exam General appearance: The patient is alert, oriented, in no acute distress. HET: Head is normocephalic and atraumatic. Pupils are equal and reactive. Oropharynx is clear without lesions. Neck: Supple without lymphadenopathy. Trachea midline. Heart: S1 S2. Regular rate and rhythm. Lungs: No crackles or wheezes are heard. Abdomen: Soft, nontender, nondistended with bowel sounds. No peritoneal signs. No palpable organomegaly or masses. Extremities: Normal skin color and turgor. No cyanosis, rash, ulceration, clubbing, or edema. Radial and pedal pulses are 2/4 bilaterally. Neurological: No focal deficits. Strength and sensation are grossly intact. - Labs CBC & Chem 7: 08/17/17 06:09 08/17/17 06:09 Labs: Abnormal Lab Results - Last 24 Hours (Table) 08/17/17 08/17/17 Range/Units 06:09 06:09 Hgb 10.8 L (13.0-17.5) gm/dL Hct 34.6 L (39.0-53.0) % MCV 78.7 L (80.0-100.0) fL MCH 24.6 L (25.0-35.0) pg RDW 17.8 H (11.5-15.5) % Lymphocytes # 0.8 L (1.0-4.8) k/uL BUN 8 L (9-20) mg/dL Glucose 136 H (74-99) mg/dL Total Protein 5.5 L (6.3-8.2) g/dL Albumin 3.0 L (3.5-5.0) g/dL Microbiology - Last 24 Hours (Table) 08/14/17 11:05 Stool Culture - Preliminary Stool Assessment and Plan (1) Rectal bleeding Narrative/Plan: 51-year-old male history of nonspecific proctitis hemorrhoids admitted with chest pain and 1 week history of blood-tinged diarrhea with lower abdominal discomfort CT reported nonspecific colitis type changes in the cecum and ascending colon. Status post colonoscopy with no evidence of active bleeding, colonic diverticulosis, hemorrhoids, isolated changes in the rectum status post biopsies. Current Visit: Yes Status: Acute Code(s): K62.5 - HEMORRHAGE OF ANUS AND RECTUM SNOMED Code(s): 49064845 (2) Chest pain Current Visit: Yes Status: Acute Code(s): R07.9 - CHEST PAIN, UNSPECIFIED SNOMED Code(s): 52537063 (3) History of proctitis Current Visit: Yes Status: Resolved Code(s): Z87.19 - PERSONAL HISTORY OF OTHER DISEASES OF THE DIGESTIVE SYSTEM SNOMED Code(s): 051980416 (4) History of hemorrhoids Current Visit: Yes Status: Resolved Code(s): Z87.19 - PERSONAL HISTORY OF OTHER DISEASES OF THE DIGESTIVE SYSTEM SNOMED Code(s): 808525134 Plan: 1. Agreeable for discharge. Follow-up in the office with biopsy results. Assessment and plan of care discussed with Dr. Hermosillo
--- NOTE | 2017-08-17 13:37 | P.DS ---
Providers Date of admission: 08/13/17 12:25 Expected date of discharge: 08/17/17 Attending physician: Laura Davies MD Consults: 08/13/17 12:25 Consult Physician Urgent Consulting Provider: [facility] Consult Reason/Comments: Syncope Do you want consulting provider notified?: Yes 08/13/17 18:47 Consult Physician Routine Consulting Provider: Terrance Hermosillo Consult Reason/Comments: positive occult Do you want consulting provider notified?: Yes Primary care physician: Sharron Hernández Hospital Course: This is a 51-year-old gentleman patient of Dr. Hernández/ Dr Jorgensen He has underlying history of CAD, CABG, previous CVA involving the occipital lobe, chronic tobacco use and cigar use, moderate alcohol consumption. His cardiac history are as follows:coronary artery disease multiple procedure including bypass grafting 2008 which is HOPKINS to the LAD and saphenous vein graft to the diagonal 1 saphenous vein graft to the diagonal 2 and saphenous vein graft to the obtuse marginal and right coronary artery. Patient also had heart cath with multiple angioplasty in the last a few years his last heart cath was in June 2014 which revealed patent saphenous vein graft to the obtuse marginal diagonal 1 and diagonal 2 patent LAD free of any atherosclerotic disease with atrophic HOPKINS to the LAD and patent saphenous vein graft to the obtuse marginal . August 2015, echocardiogram at that time showed ejection fraction of 50-55% inferoseptal LV wall motion hypokinesia mild aortic valve sclerosis without stenosis, no aortic regurgitation, mild MR and mild TR no pulmonary hypertension aortic root is normal no pericardial effusion at that time, most recent Lexiscan stress test 06/06/2016with no stress induced ischemia. He was last seen in 2017 for near syncope which was likely secondary to benign positional vertigo versus vestibular neuritis. Patient was also positive for apley maneuver. Neurology evaluation is negative. Echocardiogram had normal LV systolic function and cardiology's office Patient comes in this time with an episode of syncope while he was in the [employer] associated with shortness of breath, chest pain, sweating and palpitation. He lost his consciousness. EKG done in the ER suggested some T- wave inversion in the lateral leads with sinus rhythm. Previous EKG had similar changes in the lateral leads. Patient was briefly on heparin drip. He also complained of right lower quadrant abdominal pain with episodes of diarrhea for the past few days. Patient noticed some bright red blood in the diarrhea. He does have history of hemorrhoids and that it is more than his regular hemorrhoids. He has history of colonoscopy in 2015 which suggested mild proctitis and internal and external hemorrhoids with evidence of bleeding. Hemorrhoidal banding was done and was performed by Dr. Ny. Hemoccult was positive. Patient denies any fever or chills. Chest pain has resolved. Cardiac enzymes in the ER was negative. Hemoglobin was 12 on admission dropped to 11.3. Potassium 3.4 this morning. Calcium 8, normal LFTs, creatinine 1.01. Patient will be treated as colitis with levofloxacin and Flagyl. CT abdomen will be obtained 08/15: Cardiology has evaluated and troponins of been negative on 3 draws and acute coronary syndrome has been ruled out. There are following on an as- needed basis only and patient has a follow-up appointment with Dr. Jorgensen in the office. Repeat lab work shows a hemoglobin of 10.0. Cryptosporidium and Giardia are negative. Stool culture is in progress. CAT scan of the abdomen and pelvis reveals liquid stool within the cecum and ascending colon with some surrounding fat stranding. Correlate for mild nonspecific colitis. Appendix appears normal. Persistent nephrograms. 6 minute delay kidney images performed and no excreted contrast identified within the collecting systems. Correlate with renal function is acute kidney injury including ATN and contrast nephropathy are in the differential. Patient has been seen by Dr. Hermosillo with plan for colonoscopy tomorrow afternoon. Patient states he continues to have 3- 4 diarrheal stools per day and still bloody. He denies dizziness with ambulation , chest pain and shortness of breath. Patient will be transferred to med-surg floor. 08/16: Patient's hemoglobin remained stable at 11.1. BUN 5 and creatinine 1. C. difficile toxin is negative. Heart rate is running in the 50s and 60s. Blood pressure was elevated during the night but improved this morning. Patient is scheduled for colonoscopy at 1:30 today. 08/17: Dr. Hermosillo performed colonoscopy and biopsy yesterday that showed low-grade internal hemorrhoids not bleeding at the time of exam. Nonspecific isolated changes in the rectum of unclear clinical significance. Biopsies obtained. Minimal diverticulosis with no evidence of bleeding. Dr. Hermosillo doubts that we are dealing with nonspecific inflammatory bowel disease. An infectious or self- limiting etiology may be possible. Hemoglobin this morning is 10.8. Dr. Hermosillo did start him on a regular diet which he is tolerating. Patient states the diarrhea has stopped. Patient will be discharged home today in stable condition. Discharge diagnoses: 1. Syncopal episode secondary to dehydration. ACS ruled out. 2. Acute bloody diarrhea likely secondary to colitis. 3. Benign paroxysmal positional vertigo 4. CAD with prior bypass surgery and cardiac stents, with recurrent angina 5. COPD without exacerbation 6. CKD stage II 7. Ischemic cardiomyopathy with angina: With multiple coronary artery disease 8. Hypertension 9. Hyperlipidemia 10. Recurrent gastritis and GERD 11. Chronic tobacco use patient was counseled regarding ill effects of tobacco Discharge plan: return home Impression and plan of care have been directed as dictated by the signing physician. Karissa Moncada nurse practitioner acting as scribe for signing physician. Patient Condition at Discharge: Good Plan - Discharge Summary New Discharge Prescriptions: New amLODIPine [Norvasc] 5 mg PO DAILY #30 tab metroNIDAZOLE [Flagyl] 500 mg PO TID #30 tab Continue Nitroglycerin Sl Tabs [Nitrostat] 0.4 mg SUBLINGUAL Q5M PRN PRN Reason: Chest Pain HYDROcodone/APAP 10-325MG [[place] 10-325] 1 tab PO BID PRN PRN Reason: Pain Atorvastatin [Lipitor] 80 mg PO HS Metoprolol Tartrate [Lopressor] 50 mg PO BID Ranolazine [Ranexa] 1,000 mg PO BID Pantoprazole Sodium [Protonix] 40 mg PO DAILY Isosorbide Mononitrate ER [Imdur] 60 mg PO BID Aspirin [Adult Low Dose Aspirin EC] 81 mg PO HS Phentermine HCl [Adipex-P] 37.5 mg PO DAILY Enalapril [Vasotec] 20 mg PO DAILY Meclizine [Antivert] 25 mg PO TID PRN PRN Reason: Nasal Congestion Discontinued Lactulose 20 gm PO BID PRN PRN Reason: Constipation Discharge Medication List Atorvastatin [Lipitor] 80 mg PO HS 06/25/13 [History] HYDROcodone/APAP 10-325MG [[place] 10-325] 1 tab PO BID PRN 06/25/13 [History] Metoprolol Tartrate [Lopressor] 50 mg PO BID 06/25/13 [History] Nitroglycerin Sl Tabs [Nitrostat] 0.4 mg SUBLINGUAL Q5M PRN 05/20/14 [History] Ranolazine [Ranexa] 1,000 mg PO BID 09/23/13 [History] Pantoprazole Sodium [Protonix] 40 mg PO DAILY 07/02/14 [History] Isosorbide Mononitrate ER [Imdur] 60 mg PO BID 10/13/15 [History] Aspirin [Adult Low Dose Aspirin EC] 81 mg PO HS 01/11/16 [History] Phentermine HCl [Adipex-P] 37.5 mg PO DAILY 04/04/17 [History] Enalapril [Vasotec] 20 mg PO DAILY 08/11/17 [History] Meclizine [Antivert] 25 mg PO TID PRN 08/13/17 [History] amLODIPine [Norvasc] 5 mg PO DAILY #30 tab 08/17/17 [Rx] metroNIDAZOLE [Flagyl] 500 mg PO TID #30 tab 08/17/17 [Rx] Follow up Appointment(s)/Referral(s): Terrance Hermosillo MD [STAFF PHYSICIAN] - 09/12/17 5:00 pm (Monday) Freda Jorgensen MD [STAFF PHYSICIAN] - 09/19/17 4:15 pm (Monday Previoulsly scheduled appointment) Sharron Hernández MD [Primary Care Provider] - 08/22/17 3:30 pm (Monday) Patient Instructions/Handouts: Rectal Bleeding (DC), Hypokalemia (DC), Syncope (DC), Hypomagnesemia (DC) Discharge Disposition: HOME SELF-CARE
== END 2017-08-17 15:03 | disposition home or self-care (01) | DRG 641 ==
LOC: EC 10:22 → 6SEL 12:25
PROVIDERS: ADMIT Internal Medicine; ATTEND Internal Medicine
PROC: 0DBP8ZX Excision of Rectum, Via Natural or Artificial Opening Endoscopic, Diagnostic (ICD-10-PCS; principal; 2017-08-16 13:30)
DX: E86.0 Dehydration (principal); E78.5 Hyperlipidemia, unspecified; E83.42 Hypomagnesemia; E87.6 Hypokalemia; F17.200 Nicotine dependence, unspecified, uncomplicated; I69.398 Other sequelae of cerebral infarction; H53.8 Other visual disturbances; G47.30 Sleep apnea, unspecified; H81.10 Benign paroxysmal vertigo, unspecified ear; I12.9 Hypertensive chronic kidney disease with stage 1 through stage 4 chronic kidney disease, or unspecified chronic kidney disease; I25.2 Old myocardial infarction; I25.5 Ischemic cardiomyopathy; I35.8 Other nonrheumatic aortic valve disorders; J44.9 Chronic obstructive pulmonary disease, unspecified; K21.9 Gastro-esophageal reflux disease without esophagitis; K29.70 Gastritis, unspecified, without bleeding; K52.9 Noninfective gastroenteritis and colitis, unspecified; K64.8 Other hemorrhoids; N18.2 Chronic kidney disease, stage 2 (mild); Z79.82 Long term (current) use of aspirin; Z79.899 Other long term (current) drug therapy; Z80.1 Family history of malignant neoplasm of trachea, bronchus and lung; Z82.49 Family history of ischemic heart disease and other diseases of the circulatory system; Z87.442 Personal history of urinary calculi; Z95.1 Presence of aortocoronary bypass graft; Z95.5 Presence of coronary angioplasty implant and graft; G62.9 Polyneuropathy, unspecified; Z90.49 Acquired absence of other specified parts of digestive tract; Z91.018 Allergy to other foods; Z71.6 Tobacco abuse counseling; I25.118 Atherosclerotic heart disease of native coronary artery with other forms of angina pectoris
CPT/HCPCS: 36415; 45380; 71046; 74177; 80048; 80053; 82150; 82272; 82550; 82553; 83690; 83735; 84484; 85025; 85027; 85610; 85730; 86850; 86900; 86901; 87045; 87046; 87324; 87328; 87329; 93005; 94760; 96361; 96374; 99285

== ENCOUNTER 2017-09-01 09:36 | Observation (INO) | payer MEDICARE, OTHER ==
[2017-09-01] MEDS ORDERED: SODIUM CHLORIDE 0.9% 500 ML IV STA (09:44)
[2017-09-01] MEDS ORDERED: SODIUM CHLORIDE 0.9% 500 ML IV ONE (10:00)
--- NOTE | 2017-09-01 10:03 | ED ---
General Adult HPI - General Chief complaint: Weakness Stated complaint: dizziness, near syncope, weakness Time Seen by Provider: 09/01/17 09:42 Source: patient, RN notes reviewed, old records reviewed Mode of arrival: wheelchair Limitations: no limitations - History of Present Illness Initial comments: 51-year-old male presents for evaluation of lightheadedness and near syncope. Patient was riding his bike, he began feeling quite lightheaded, had some nausea and vomiting. Patient has had symptoms similar to this proximally 3 weeks prior at that time patient had diarrhea. He had no preceding symptoms today. No diarrhea. No fever or chills. No abdominal pain or chest pain. The time my evaluation patient has some nausea, he feels very lightheaded. Denies chest pain or abdominal pain. He does have history of CAD status post CABG in 2008. Patient states it is not abnormal for him to ride his bike. He does ride his bike several times a week. Patient has history of hypertension. He is on multiple antihypertensive medications which he took this morning. Including enalapril, isosorbide mononitrate, metoprolol, and amlodipine. - Related Data Home Medications Medication Instructions Recorded Confirmed Atorvastatin [Lipitor] 80 mg PO HS 06/25/13 09/01/17 HYDROcodone/APAP 10-325MG [[place] 1 tab PO BID PRN 06/25/13 09/01/17 10-325] Metoprolol Tartrate [Lopressor] 50 mg PO BID 06/25/13 09/01/17 Nitroglycerin Sl Tabs [Nitrostat] 0.4 mg SUBLINGUAL Q5M PRN 06/25/13 09/01/17 Ranolazine [Ranexa] 1,000 mg PO BID 09/23/13 09/01/17 Pantoprazole Sodium [Protonix] 40 mg PO DAILY 07/02/14 09/01/17 Isosorbide Mononitrate ER [Imdur] 60 mg PO BID 10/13/15 09/01/17 Aspirin [Adult Low Dose Aspirin EC] 81 mg PO HS 01/11/16 09/01/17 Phentermine HCl [Adipex-P] 37.5 mg PO DAILY 04/04/17 09/01/17 Enalapril [Vasotec] 20 mg PO DAILY 08/11/17 09/01/17 Meclizine [Antivert] 25 mg PO TID PRN 08/13/17 09/01/17 Previous Rx's Medication Instructions Recorded amLODIPine [Norvasc] 5 mg PO DAILY #30 tab 08/17/17 Allergies Allergy/AdvReac Type Severity Reaction Status Date / Time chocolate flavor Allergy Rash/Hives Verified 09/01/17 10:36 [place] And Derivatives Allergy Rash/Hives Verified 09/01/17 10:36 [[place]] Review of Systems ROS Statement: Those systems with pertinent positive or pertinent negative responses have been documented in the HPI. ROS Other: All systems not noted in ROS Statement are negative. 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 Last Myocardial Infarction Date:: 01-22-2011 History of Any Multi-Drug Resistant Organisms: None Reported Past Surgical History: Adenoidectomy, Cholecystectomy, Coronary Bypass/CABG, Heart Catheterization, Heart Catheterization With Stent, Hernia Repair Additional Past Surgical History / Comment(s): Several caths with last one done 07/02/14 treated medically, total 4 stents (states placed 01/2011), CABG 5 vessel in 2008 (stents came after open heart was done), EGD/colonoscopy, hemorrhoid banding, possible pain injections lower back, umbilical hernia repair Past Anesthesia/Blood Transfusion Reactions: Previous Problems w/ Anesthesia Additional Past Anesthesia/Blood Transfusion Reaction / Comment(s): stated "wakes up slower than normal" Date of Last Stent Placement:: 01-22-2011 Past Psychological History: No Psychological Hx Reported, Anxiety, Depression Smoking Status: Current every day smoker Past Alcohol Use History: Occasional Past Drug Use History: Marijuana - Past Family History Father Family Medical History: Coronary Artery Disease (CAD) Additional Family Medical History / Comment(s): dad is 75. stents, bypass, prostate and lung cancer. Mother Additional Family Medical History / Comment(s): mom 1997 at age 59- brain aneurysm General Exam Limitations: no limitations General appearance: alert, in no apparent distress Head exam: Present: atraumatic, normocephalic Eye exam: Present: normal appearance, PERRL, EOMI ENT exam: Present: normal exam Neck exam: Present: normal inspection. Absent: tenderness, meningismus Respiratory exam: Present: normal lung sounds bilaterally. Absent: respiratory distress Cardiovascular Exam: Present: regular rate, normal rhythm GI/Abdominal exam: Present: soft. Absent: distended, tenderness Extremities exam: Present: normal inspection, normal capillary refill. Absent: pedal edema Back exam: Present: normal inspection Neurological exam: Present: alert, oriented X3, CN II-XII intact. Absent: motor sensory deficit Psychiatric exam: Present: normal affect, normal mood Skin exam: Present: warm, dry, intact. Absent: cyanosis, diaphoretic Course Vital Signs 09/01/17 09/01/17 09/01/17 09:39 10:14 10:34 Temperature 97.7 F Pulse Rate 80 71 70 Respiratory 18 18 18 Rate Blood Pressure 96/62 79/54 80/53 O2 Sat by Pulse 97 98 99 Oximetry 09/01/17 09/01/17 09/01/17 11:00 11:42 12:00 Temperature Pulse Rate 62 60 60 Respiratory 16 18 16 Rate Blood Pressure 93/52 92/56 100/53 O2 Sat by Pulse 99 100 98 Oximetry EKG Findings - EKG Comments: EKG Findings:: EKG: Normal sinus rhythm, prolonged QT at 481, QRS duration 86, OK interval 184, ventricular rate of 76, there is some ST segment abnormality in lead 3 and T-wave inversion in aVL, these are both present on previous EKG Medical Decision Making - Medical Decision Making 51-year-old male presenting with lightheadedness, near syncope, and nausea. Initial blood pressures in the 70 systolic. Patient is on multiple antihypertensives and these medications have been adjusted recently. He took all these medications this morning. EKG shows normal sinus rhythm, chest x-ray is negative. Laboratory studies reveal acute kidney injury with a creatinine 1.62 from baseline of 1. Mild lactic acidosis 2.1 likely secondary from hypotension. After 2 L of IV fluid patient's blood pressure does improve to 90s systolic. He remains symptomatic. He will be admitted For further IV hydration and reevaluation. Patient's antihypertensive medications will be held. - Lab Data Result diagrams: 09/01/17 09:56 09/01/17 09:56 Lab Results 09/01/17 09/01/17 09/01/17 Range/Units 09:56 09:56 09:56 WBC 7.2 (3.8-10.6) k/uL RBC 5.06 (4.30-5.90) m/uL Hgb 12.2 L (13.0-17.5) gm/dL Hct 39.0 (39.0-53.0) % MCV 77.1 L (80.0-100.0) fL MCH 24.0 L (25.0-35.0) pg MCHC 31.1 (31.0-37.0) g/dL RDW 17.6 H (11.5-15.5) % Plt Count 354 (150-450) k/uL Neutrophils % 68 % Lymphocytes % 23 % Monocytes % 5 % Eosinophils % 2 % Basophils % 0 % Neutrophils # 4.9 (1.3-7.7) k/uL Lymphocytes # 1.6 (1.0-4.8) k/uL Monocytes # 0.4 (0-1.0) k/uL Eosinophils # 0.1 (0-0.7) k/uL Basophils # 0.0 (0-0.2) k/uL Hypochromasia Slight Anisocytosis Slight Microcytosis Slight PT (9.0-12.0) sec INR (<1.2) APTT (22.0-30.0) sec Sodium 138 (137-145) mmol/L Potassium 5.0 (3.5-5.1) mmol/L Chloride 107 (98-107) mmol/L Carbon Dioxide 19 L (22-30) mmol/L Anion Gap 12 mmol/L BUN 23 H (9-20) mg/dL Creatinine 1.62 H (0.66-1.25) mg/dL Est GFR (CKD-EPI)AfAm 56 (>60 ml/min/1.73 sqM) Est GFR (CKD-EPI)NonAf 49 (>60 ml/min/1.73 sqM) Glucose 135 H (74-99) mg/dL Plasma Lactic Acid Noel (0.7-2.0) mmol/L Calcium 9.2 (8.4-10.2) mg/dL Magnesium 1.8 (1.6-2.3) mg/dL Total Bilirubin 1.1 (0.2-1.3) mg/dL AST 27 (17-59) U/L ALT 28 (21-72) U/L Alkaline Phosphatase 61 (38-126) U/L Total Creatine Kinase 29 L (55-170) U/L CK-MB (CK-2) 0.5 (0.0-2.4) ng/mL CK-MB (CK-2) Rel Index 1.7 Troponin I <0.012 (0.000-0.034) ng/mL Total Protein 6.8 (6.3-8.2) g/dL Albumin 3.9 (3.5-5.0) g/dL 09/01/17 09/01/17 Range/Units 09:56 09:56 WBC (3.8-10.6) k/uL RBC (4.30-5.90) m/uL Hgb (13.0-17.5) gm/dL Hct (39.0-53.0) % MCV (80.0-100.0) fL MCH (25.0-35.0) pg MCHC (31.0-37.0) g/dL RDW (11.5-15.5) % Plt Count (150-450) k/uL Neutrophils % % Lymphocytes % % Monocytes % % Eosinophils % % Basophils % % Neutrophils # (1.3-7.7) k/uL Lymphocytes # (1.0-4.8) k/uL Monocytes # (0-1.0) k/uL Eosinophils # (0-0.7) k/uL Basophils # (0-0.2) k/uL Hypochromasia Anisocytosis Microcytosis PT 10.5 (9.0-12.0) sec INR 1.1 (<1.2) APTT 22.1 (22.0-30.0) sec Sodium (137-145) mmol/L Potassium (3.5-5.1) mmol/L Chloride (98-107) mmol/L Carbon Dioxide (22-30) mmol/L Anion Gap mmol/L BUN (9-20) mg/dL Creatinine (0.66-1.25) mg/dL Est GFR (CKD-EPI)AfAm (>60 ml/min/1.73 sqM) Est GFR (CKD-EPI)NonAf (>60 ml/min/1.73 sqM) Glucose (74-99) mg/dL Plasma Lactic Acid Noel 2.1 H* (0.7-2.0) mmol/L Calcium (8.4-10.2) mg/dL Magnesium (1.6-2.3) mg/dL Total Bilirubin (0.2-1.3) mg/dL AST (17-59) U/L ALT (21-72) U/L Alkaline Phosphatase (38-126) U/L Total Creatine Kinase (55-170) U/L CK-MB (CK-2) (0.0-2.4) ng/mL CK-MB (CK-2) Rel Index Troponin I (0.000-0.034) ng/mL Total Protein (6.3-8.2) g/dL Albumin (3.5-5.0) g/dL Disposition Clinical Impression: Syncope due to orthostatic hypotension, Hypotension Disposition: ADMITTED IP TO THIS [facility] Condition: Stable Is patient prescribed a controlled substance at d/c from ED?: No Referrals: Sharron Hernández MD [Primary Care Provider] - 1-2 days Decision to Admit Reason: Admit from EC Decision Date: 09/01/17 Decision Time: 12:21
[2017-09-01 10:07] LABS: Anisocytosis Slight; Basophils % (A) 0 %; Eosinophils # (A) 0.1 k/uL (0-0.7); Eosinophils % (A) 2 %; HGB 12.2 gm/dL (13.0-17.5); Hypochromasia Slight; Lymphocytes # (A) 1.6 k/uL (1.0-4.8); Lymphocytes % (A) 23 %; MCHC 31.1 g/dL (31.0-37.0); MCV 77.1 fL (80.0-100.0); Mean Platelet Volume 6.5; Microcytosis Slight; Monocytes # (A) 0.4 k/uL (0-1.0); Monocytes % (A) 5 %; Neutrophils # (A) 4.9 k/uL (1.3-7.7); Neutrophils % (A) 68 %; Platelet Count 354 k/uL (150-450); RBC 5.06 m/uL (4.30-5.90); RDW 17.6 % (11.5-15.5); WBC 7.2 k/uL (3.8-10.6)
[2017-09-01 10:18] LABS: Albumin 3.9 g/dL (3.5-5.0); Calcium 9.2 mg/dL (8.4-10.2); Magnesium 1.8 mg/dL (1.6-2.3); Total Bilirubin 1.1 mg/dL (0.2-1.3); Total Protein 6.8 g/dL (6.3-8.2)
[2017-09-01 10:26] LABS: INR 1.1 (<1.2); Partial Thromboplastin Time 22.1 sec (22.0-30.0); Prothrombin Time 10.5 sec (9.0-12.0)
[2017-09-01 10:28] LABS: Creatine Kinase 29 U/L (55-170)
--- NOTE | 2017-09-01 10:32 | XR ---
EXAMINATION TYPE: XR chest 2V DATE OF EXAM: 09/01/2017 COMPARISON: 08/13/2017 HISTORY: Weakness, lightheadedness, and shortness of breath. TECHNIQUE: Frontal and lateral views of the chest are obtained. FINDINGS: There is no focal air space opacity, pleural effusion, or pneumothorax seen. Post-CABG ch anges are seen of the chest. Cardiac silhouette is upper limits of normal. There is dehiscence of the most inferior sternotomy wire. The cardiac silhouette size is within normal limits. The osseous st ructures are intact. IMPRESSION: No acute cardiopulmonary process.
[2017-09-01 10:41] LABS: Creatine Kinase MB 0.5 ng/mL (0.0-2.4); Troponin I <0.012 ng/mL (0.000-0.034)
[2017-09-01] MEDS ORDERED: SODIUM CHLORIDE 0.9% 1,000 ML IV ONE (11:45)
[2017-09-01] MEDS ORDERED: NALOXONE 0.4 MG/ML 1 ML VIAL IV PRN (12:17)
[2017-09-01] MEDS ORDERED: ACETAMINOPHEN TAB 325 MG TAB PO PRN (12:17)
[2017-09-01] MEDS ORDERED: NITROGLYCERIN SL TABS 0.4 MG TAB SUBLINGUAL PRN (13:00)
[2017-09-01] MEDS ORDERED: HYDROcodone/APAP 10-325MG 1 EACH TAB PO PRN (13:00)
[2017-09-01 13:56] VITALS: RESP 18
[2017-09-01] MEDS: SODIUM CHLORIDE 0.9% 1,000 ML IV SCH (16:22)
[2017-09-01] MEDS: RANOLAZINE 500 MG TAB.ER.12H PO SCH (20:52)
[2017-09-01] MEDS ORDERED: ATORVASTATIN 80 MG TAB PO SCH (21:00)
[2017-09-01] MEDS ORDERED: ASPIRIN 81 MG PO SCH (21:00)
[2017-09-01 21:03] LABS: Appearance,Urine Clear (Clear); Bilirubin,Urine Negative (Negative); Blood,Urine Negative (Negative); Color,Urine Yellow; Glucose,Urine (UA) Negative (Negative); Ketones,Urine Negative (Negative); Leukocyte Esterase,Urine Negative (Negative); Nitrite,Urine Negative (Negative); Protein,Urine Negative (Negative); Specific Gravity,Urine 1.008 (1.001-1.035); Urobilinogen,Urine <2.0 mg/dL (<2.0)
[2017-09-02] MEDS: SODIUM CHLORIDE 0.9% 1,000 ML IV SCH (00:25)
--- NOTE | 2017-09-02 06:12 | P.HPIM ---
History of Present Illness H&P Date: 09/01/17 This is a 51-year-old gentleman patient of Dr. Hernández and Dr Jorgensen with history of CAD, CABG, previous CVA involving the occipital lobe,chronic tobacco use and cigar use, moderate alcohol consumption. His cardiac history are as follows: coronary artery disease multiple procedure including bypass grafting 2008 which is HOPKINS to the LAD and saphenous vein graft to the diagonal 1 saphenous vein graft to the diagonal 2 and saphenous vein graft to the obtuse marginal and right coronary artery. Patient also had heart cath with multiple angioplasty in the last a few years his last heart cath was in June 2014 which revealed patent saphenous vein graft to the obtuse marginal diagonal 1 and diagonal 2 patent LAD free of any atherosclerotic disease with atrophic HOPKINS to the LAD and patent saphenous vein graft to the obtuse marginal. He had an admission earlier this month for syncopal episode secondary to dehydration and was also treated for acute bloody diarrhea secondary to colitis. At that time he underwent colonoscopy and biopsy that showed low-grade internal hemorrhoids not bleeding at the time of exam. Nonspecific isolated changes in the rectum of unclear clinical significance. Biopsies obtained. Minimal diverticulosis with no evidence of bleeding. Dr. Hermosillo doubts that we are dealing with nonspecific inflammatory bowel disease. An infectious or self-limiting etiology may be possible. Rectal biopsy showed normal left colonic mucosal with xanthoma. Patient was riding his bike and was feeling lightheaded with nausea and vomiting. He had similar episodes 3 weeks ago when he had diarrhea. No chest pain or abdominal pain. Patient came into [facility] emergency center for evaluation and was found to be quite hypotensive with a systolic of 70s. He has been given 2 L of IV fluids and continues to complain of lightheadedness. Patient will be placed on the observation unit overnight. He is currently on amlodipine 5 mg, metoprolol tartrate 50 mg twice daily, Imdur 60 mg twice daily and enalapril 20 mg daily for blood pressure. Vision she hemoglobin was stable at 12.2, lactic acid 2.1, BUN 23 and creatinine 1.62. Review of Systems All systems: negative Constitutional: Reports fatigue, Denies chills, Denies fever Eyes: denies blurred vision, denies pain Ears, nose, mouth and throat: Denies headache, Denies sore throat Cardiovascular: Reports lightheadedness, Denies chest pain, Denies shortness of breath, Denies syncope Respiratory: Denies cough Gastrointestinal: Reports nausea, Reports vomiting, Denies abdominal pain, Denies diarrhea Musculoskeletal: Denies myalgias Integumentary: Denies pruritus, Denies rash Neurological: Denies numbness, Denies weakness Psychiatric: Denies anxiety, Denies depression Endocrine: Denies fatigue, Denies weight change Past Medical History Past Medical History: Coronary Artery Disease (CAD), Chest Pain / Angina, CVA/ TIA, GI Bleed, Hyperlipidemia, Hypertension, Myocardial Infarction ([place]), Pneumonia Additional Past Medical History / Comment(s): 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 Last Myocardial Infarction Date:: 01-22-2011 History of Any Multi-Drug Resistant Organisms: None Reported Past Surgical History: Adenoidectomy, Cholecystectomy, Coronary Bypass/CABG, Heart Catheterization, Heart Catheterization With Stent, Hernia Repair Additional Past Surgical History / Comment(s): Several caths with last one done 07/02/14 treated medically, total 4 stents (states placed 01/2011), CABG 5 vessel in 2008 (stents came after open heart was done), EGD/colonoscopy, hemorrhoid banding, possible pain injections lower back, umbilical hernia repair Past Anesthesia/Blood Transfusion Reactions: Previous Problems w/ Anesthesia Additional Past Anesthesia/Blood Transfusion Reaction / Comment(s): stated "wakes up slower than normal" Date of Last Stent Placement:: 01-22-2011 Past Psychological History: No Psychological Hx Reported, Anxiety, Depression Smoking Status: Current every day smoker Past Alcohol Use History: Occasional Past Drug Use History: Marijuana - Past Family History Father Family Medical History: Coronary Artery Disease (CAD) Additional Family Medical History / Comment(s): dad is 75. stents, bypass, prostate and lung cancer. Mother Additional Family Medical History / Comment(s): mom 1997 at age 59- brain aneurysm Medications and Allergies Home Medications Medication Instructions Recorded Confirmed Type Atorvastatin [Lipitor] 80 mg PO HS 06/25/13 09/01/17 History HYDROcodone/APAP 10-325MG [[place] 1 tab PO BID PRN 06/25/13 09/01/17 History 10-325] Metoprolol Tartrate [Lopressor] 50 mg PO BID 06/25/13 09/01/17 History Nitroglycerin Sl Tabs [Nitrostat] 0.4 mg SUBLINGUAL Q5M PRN 06/25/13 09/01/17 History Ranolazine [Ranexa] 1,000 mg PO BID 09/23/13 09/01/17 History Pantoprazole Sodium [Protonix] 40 mg PO DAILY 07/02/14 09/01/17 History Isosorbide Mononitrate ER [Imdur] 60 mg PO BID 10/13/15 09/01/17 History Aspirin [Adult Low Dose Aspirin EC] 81 mg PO HS 01/11/16 09/01/17 History Phentermine HCl [Adipex-P] 37.5 mg PO DAILY 04/04/17 09/01/17 History Enalapril [Vasotec] 20 mg PO DAILY 08/11/17 09/01/17 History Meclizine [Antivert] 25 mg PO TID PRN 08/13/17 09/01/17 History amLODIPine [Norvasc] 5 mg PO DAILY #30 tab 08/17/17 09/01/17 Rx Allergies Allergy/AdvReac Type Severity Reaction Status Date / Time chocolate flavor Allergy Rash/Hives Verified 09/01/17 10:36 [place] And Derivatives Allergy Rash/Hives Verified 09/01/17 10:36 [[place]] Physical Exam Vitals: Vital Signs Temp Pulse Resp BP Pulse Ox 09/01/17 11:42 60 18 92/56 100 09/01/17 11:00 62 16 93/52 99 09/01/17 10:34 70 18 80/53 99 09/01/17 10:14 71 18 79/54 98 09/01/17 09:39 97.7 F 80 18 96/62 97 Intake and Output 08/31/17 09/01/17 09/01/17 22:59 06:59 14:59 Other: Weight 123.831 kg General appearance: cooperative, no acute distress, obese - EENT Eyes: anicteric sclerae, PERRLA, normal appearance ENT: hearing grossly normal - Neck Neck: no lymphadenopathy, normal ROM, no other, no rigidity, no stridor, no thyromegaly - Respiratory Respiratory: bilateral: CTA, negative: diminished, dullness, rales, rhonchi - Cardiovascular Rhythm: regular Heart sounds: normal: S1, S2 Abnormal Heart Sounds: no systolic murmur, no diastolic murmur, no rub, no S3 Gallop, no S4 Gallop, no click, no other - Gastrointestinal General gastrointestinal: normal bowel sounds, soft tender in the left lower quadrant, mild tenderness in the right lower quadrant - Integumentary Integumentary: no rash - Neurologic Neurologic: CNII-XII intact - Musculoskeletal Musculoskeletal: gait normal, strength equal bilaterally - Psychiatric Psychiatric: A&O x's 3, appropriate affect Results CBC & Chem 7: 09/01/17 09:56 09/01/17 09:56 Labs: Abnormal Lab Results - Last 24 Hours (Table) 09/01/17 09/01/17 09/01/17 Range/Units 09:56 09:56 09:56 Hgb 12.2 L (13.0-17.5) gm/dL MCV 77.1 L (80.0-100.0) fL MCH 24.0 L (25.0-35.0) pg RDW 17.6 H (11.5-15.5) % Carbon Dioxide 19 L (22-30) mmol/L BUN 23 H (9-20) mg/dL Creatinine 1.62 H (0.66-1.25) mg/dL Glucose 135 H (74-99) mg/dL Plasma Lactic Acid Noel (0.7-2.0) mmol/L Total Creatine Kinase 29 L (55-170) U/L 09/01/17 Range/Units 09:56 Hgb (13.0-17.5) gm/dL MCV (80.0-100.0) fL MCH (25.0-35.0) pg RDW (11.5-15.5) % Carbon Dioxide (22-30) mmol/L BUN (9-20) mg/dL Creatinine (0.66-1.25) mg/dL Glucose (74-99) mg/dL Plasma Lactic Acid Noel 2.1 H* (0.7-2.0) mmol/L Total Creatine Kinase (55-170) U/L Thrombosis Risk Factor Assmnt - DVT/VTE Prophylaxis DVT/VTE Prophylaxis: Pharmacologic Prophylaxis ordered Assessment and Plan Plan: 1. Severe hypotension with lightheadedness. He is currently on amlodipine 5 mg , metoprolol tartrate 50 mg twice daily, Imdur 60 mg twice daily and enalapril 20 mg daily. 2. Acute kidney injury with lactic acidosis. A shunt is status post 2 L of IV fluid. Continue 0.9 normal saline at 100 mL per hour. Recheck basic metabolic panel in the morning. 3. Benign paroxysmal positional vertigo meclizine as needed 4. CAD with prior bypass surgery and cardiac stents, with recurrent angina cardiology is following, unlikely to be ACS. Continue metoprolol at 50 mg by mouth twice a day continue aspirin, atorvastatin, Imdur and enalapril 20 mg daily 5. COPD without exacerbation will use albuterol when necessary 6. CKD stage II, nephrotoxins will be avoided, hypotension would be avoided, labs will be monitored 7. Ischemic cardiomyopathy with angina: With multiple coronary artery disease, he is currently on Ranex[place] Imdur. 8. Hypertension: metoprolol 50 mg twice a day Imd 60 mg twice a day 9. Hyperlipidemia: On atorvastatin 80 mg daily. 10. Recurrent gastritis and GERD: Protonix 40 mg daily. 11. Chronic tobacco use patient was counseled regarding ill effects of tobacco to include irreversible damage caused by CVA carcinogenic mutations to genes besides cardiopulmonary destructive damages caused by smoking 12. GI prophylaxis: Has been on Protonix continue medication. 13. Recent hospitalization for syncopal episode secondary to dehydration and was also treated for acute bloody diarrhea secondary to colitis. CODE STATUS full code Discharge plan: return home Patient will be placed on the observation unit. Impression and plan of care have been directed as dictated by the signing physician. Karissa Moncada nurse practitioner acting as scribe for signing physician.
[2017-09-02 07:58] LABS: Calcium 8.3 mg/dL (8.4-10.2); Potassium 4.4 mmol/L (3.5-5.1)
[2017-09-02] MEDS: RANOLAZINE 500 MG TAB.ER.12H PO SCH (08:20)
[2017-09-02] MEDS ORDERED: PANTOPRAZOLE 40 MG TABLET PO SCH (09:00)
[2017-09-02 11:36] VITALS: TEMP 98.1
--- NOTE | 2017-09-02 13:34 | P.DS ---
Providers Date of admission: 09/01/17 12:17 Attending physician: Vinay Berrios Consults: 09/01/17 18:35 Consult Physician Routine Consulting Provider: Rhonda Amezcua Consult Reason/Comments: Near Syncope Do you want consulting provider notified?: Yes, Notify in am Primary care physician: Sharron Hernández [facility] Course: This is a 51-year-old gentleman patient of Dr. Hernández and Dr Jorgensen with history of CAD, CABG, previous CVA involving the occipital lobe,chronic tobacco use and cigar use, moderate alcohol consumption. His cardiac history are as follows: coronary artery disease multiple procedure including bypass grafting 2008 which is HOPKINS to the LAD and saphenous vein graft to the diagonal 1 saphenous vein graft to the diagonal 2 and saphenous vein graft to the obtuse marginal and right coronary artery. Patient also had heart cath with multiple angioplasty in the last a few years his last heart cath was in June 2014 which revealed patent saphenous vein graft to the obtuse marginal diagonal 1 and diagonal 2 patent LAD free of any atherosclerotic disease with atrophic HOPKINS to the LAD and patent saphenous vein graft to the obtuse marginal. He had an admission earlier this month for syncopal episode secondary to dehydration and was also treated for acute bloody diarrhea secondary to colitis. At that time he underwent colonoscopy and biopsy that showed low-grade internal hemorrhoids not bleeding at the time of exam. Nonspecific isolated changes in the rectum of unclear clinical significance. Biopsies obtained. Minimal diverticulosis with no evidence of bleeding. Dr. Hermosillo doubts that we are dealing with nonspecific inflammatory bowel disease. An infectious or self-limiting etiology may be possible. Rectal biopsy showed normal left colonic mucosal with xanthoma. Patient was riding his bike and was feeling lightheaded with nausea and vomiting. He had similar episodes 3 weeks ago when he had diarrhea. No chest pain or abdominal pain. Patient came into [facility] emergency center for evaluation and was found to be quite hypotensive with a systolic of 70s. He has been given 2 L of IV fluids and continues to complain of lightheadedness. Patient will be placed on the observation unit overnight. He is currently on amlodipine 5 mg, metoprolol tartrate 50 mg twice daily, Imdur 60 mg twice daily and enalapril 20 mg daily for blood pressure. Vision she hemoglobin was stable at 12.2, lactic acid 2.1, BUN 23 and creatinine 1.62. Review of Systems All systems: negative Constitutional: Reports fatigue, Denies chills, Denies fever Eyes: denies blurred vision, denies pain Ears, nose, mouth and throat: Denies headache, Denies sore throat Cardiovascular: Reports lightheadedness, Denies chest pain, Denies shortness of breath, Denies syncope Respiratory: Denies cough Gastrointestinal: Reports nausea, Reports vomiting, Denies abdominal pain, Denies diarrhea Musculoskeletal: Denies myalgias Integumentary: Denies pruritus, Denies rash Neurological: Denies numbness, Denies weakness Psychiatric: Denies anxiety, Denies depression Endocrine: Denies fatigue, Denies weight change PHYSICAL: Vitals: Where more stable blood pressure is down to 130/70, pulse of 70, respiration 12. General appearance: cooperative, no acute distress, obese - EENT Eyes: anicteric sclerae, PERRLA, normal appearance ENT: hearing grossly normal - Neck Neck: no lymphadenopathy, normal ROM, no other, no rigidity, no stridor, no thyromegaly - Respiratory Respiratory: bilateral: CTA, negative: diminished, dullness, rales, rhonchi - Cardiovascular Rhythm: regular Heart sounds: normal: S1, S2 Abnormal Heart Sounds: no systolic murmur, no diastolic murmur, no rub, no S3 Gallop, no S4 Gallop, no click, no other - Gastrointestinal General gastrointestinal: normal bowel sounds, soft tender in the left lower quadrant, mild tenderness in the right lower quadrant - Integumentary Integumentary: no rash - Neurologic Neurologic: CNII-XII intact - Musculoskeletal Musculoskeletal: gait normal, strength equal bilaterally - Psychiatric Psychiatric: A&O x's 3, appropriate affect Assessment and Plan Plan: 1. Severe hypotension with lightheadedness. He is currently on amlodipine 5 mg , metoprolol tartrate 50 mg twice daily, Imdur 60 mg twice daily and enalapril 20 mg daily. 2. Acute kidney injury with lactic acidosis. A shunt is status post 2 L of IV fluid. Continue 0.9 normal saline at 100 mL per hour. Recheck basic metabolic panel in the morning. 3. Benign paroxysmal positional vertigo meclizine as needed 4. CAD with prior bypass surgery and cardiac stents, with recurrent angina cardiology is following, unlikely to be ACS. Continue metoprolol at 50 mg by mouth twice a day continue aspirin, atorvastatin, Imdur and enalapril 20 mg daily 5. COPD without exacerbation will use albuterol when necessary 6. CKD stage II, nephrotoxins will be avoided, hypotension would be avoided, labs will be monitored 7. Ischemic cardiomyopathy with angina: With multiple coronary artery disease, he is currently on Ranexa Imdur. 8. Hypertension: metoprolol 50 mg twice a day Imd 60 mg twice a day 9. Hyperlipidemia: On atorvastatin 80 mg daily. 10. Recurrent gastritis and GERD: Protonix 40 mg daily. 11. Chronic tobacco use patient was counseled regarding ill effects of tobacco to include irreversible damage caused by CVA carcinogenic mutations to genes besides cardiopulmonary destructive damages caused by smoking 12. GI prophylaxis: Has been on Protonix continue medication. Discharge planning: Patient be discharged home today to follow with cardiology and his PCP in the next 3 days. Patient Condition at Discharge: Stable Plan - Discharge Summary Discharge Rx Participant: No New Discharge Prescriptions: New amLODIPine [Norvasc] 2.5 mg PO DAILY #30 tablet Lisinopril [Prinivil] 10 mg PO DAILY #30 tab Continue Nitroglycerin Sl Tabs [Nitrostat] 0.4 mg SUBLINGUAL Q5M PRN PRN Reason: Chest Pain HYDROcodone/APAP 10-325MG [[place] 10-325] 1 tab PO BID PRN PRN Reason: Pain Atorvastatin [Lipitor] 80 mg PO HS Metoprolol Tartrate [Lopressor] 50 mg PO BID Ranolazine [Ranexa] 1,000 mg PO BID Pantoprazole Sodium [Protonix] 40 mg PO DAILY Isosorbide Mononitrate ER [Imdur] 60 mg PO BID Aspirin [Adult Low Dose Aspirin EC] 81 mg PO HS Phentermine HCl [Adipex-P] 37.5 mg PO DAILY Meclizine [Antivert] 25 mg PO TID PRN PRN Reason: Nasal Congestion Discontinued Enalapril [Vasotec] 20 mg PO DAILY amLODIPine [Norvasc] 5 mg PO DAILY #30 tab Discharge Medication List Atorvastatin [Lipitor] 80 mg PO HS 06/25/13 [History] HYDROcodone/APAP 10-325MG [[place] 10-325] 1 tab PO BID PRN 06/25/13 [History] Metoprolol Tartrate [Lopressor] 50 mg PO BID 06/25/13 [History] Nitroglycerin Sl Tabs [Nitrostat] 0.4 mg SUBLINGUAL Q5M PRN 06/25/13 [History] Ranolazine [Ranexa] 1,000 mg PO BID 09/23/13 [History] Pantoprazole Sodium [Protonix] 40 mg PO DAILY 07/02/14 [History] Isosorbide Mononitrate ER [Imdur] 60 mg PO BID 10/13/15 [History] Aspirin [Adult Low Dose Aspirin EC] 81 mg PO HS 01/11/16 [History] Phentermine HCl [Adipex-P] 37.5 mg PO DAILY 04/04/17 [History] Meclizine [Antivert] 25 mg PO TID PRN 08/13/17 [History] Lisinopril [Prinivil] 10 mg PO DAILY #30 tab 09/02/17 [Rx] amLODIPine [Norvasc] 2.5 mg PO DAILY #30 tablet 09/02/17 [Rx] Follow up Appointment(s)/Referral(s): Freda Jorgensen MD [STAFF PHYSICIAN] - 3 Weeks Sharron Hernández MD [Primary Care Provider] - 1-2 days Discharge Disposition: HOME SELF-CARE
--- NOTE | 2017-09-02 14:16 | P.CRDCN ---
History of Present Illness Consult date: 09/02/17 Requesting physician: Vinay Berrios Reason for Consult (text): near syncope Chief complaint: weakness, decreased energy History of present illness: This is a pleasant 51-year-old gentleman who follows with Dr. Jorgensen in the office. He has known history of CAD with prior CABG and prior PCI, hyperlipidemia and hypertension. Presented to the emergency department after going on a bike ride and becoming quite weak with very low energy. He had a near syncopal episode. On arrival blood pressure was as low as 80/50. EKG showed sinus rhythm. And chest x-ray showed no acute cardiopulmonary process. Laboratory values on admission showed a BUN/creatinine of 23 and creatinine 1.6 to improved after IV fluids with most recent draw of 16 and 1.2. Blood pressure has improved with last reading of 125/81. He has been receiving his Ranexa 1000mg by mouth twice a day. Since admission he has not been getting his lisinopril 10 mg daily, amlodipine 2.5 mg daily, Imdur 60 mg daily or his metoprolol tartrate 50 mg by mouth twice a day. Upon examination, patient is resting comfortably in bed. Denies further complaints of feeling weak, lightheadedness or near syncope. Eyes complaints of chest discomfort, shortness of breath or palpitations. 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 Last Myocardial Infarction Date:: 01-22-2011 History of Any Multi-Drug Resistant Organisms: None Reported Past Surgical History: Adenoidectomy, Cholecystectomy, Coronary Bypass/CABG, Heart Catheterization, Heart Catheterization With Stent, Hernia Repair Additional Past Surgical History / Comment(s): Several caths with last one done 07/02/14 treated medically, total 4 stents (states placed 01/2011), CABG 5 vessel in 2008 (stents came after open heart was done), EGD/colonoscopy, hemorrhoid banding, possible pain injections lower back, umbilical hernia repair Past Anesthesia/Blood Transfusion Reactions: Previous Problems w/ Anesthesia Additional Past Anesthesia/Blood Transfusion Reaction / Comment(s): stated "wakes up slower than normal" Date of Last Stent Placement:: 01-22-2011 Past Psychological History: No Psychological Hx Reported, Anxiety, Depression Smoking Status: Current every day smoker Past Alcohol Use History: Occasional Past Drug Use History: Marijuana - Past Family History Father Family Medical History: Coronary Artery Disease (CAD) Additional Family Medical History / Comment(s): dad is 75. stents, bypass, prostate and lung cancer. Mother Additional Family Medical History / Comment(s): mom 1997 at age 59- brain aneurysm Medications and Allergies Home Medications Medication Instructions Recorded Confirmed Type Atorvastatin [Lipitor] 80 mg PO HS 06/25/13 09/01/17 History HYDROcodone/APAP 10-325MG [[place] 1 tab PO BID PRN 06/25/13 09/01/17 History 10-325] Metoprolol Tartrate [Lopressor] 50 mg PO BID 06/25/13 09/01/17 History Nitroglycerin Sl Tabs [Nitrostat] 0.4 mg SUBLINGUAL Q5M PRN 06/25/13 09/01/17 History Ranolazine [Ranexa] 1,000 mg PO BID 09/23/13 09/01/17 History Pantoprazole Sodium [Protonix] 40 mg PO DAILY 07/02/14 09/01/17 History Isosorbide Mononitrate ER [Imdur] 60 mg PO BID 10/13/15 09/01/17 History Aspirin [Adult Low Dose Aspirin EC] 81 mg PO HS 01/11/16 09/01/17 History Phentermine HCl [Adipex-P] 37.5 mg PO DAILY 04/04/17 09/01/17 History Meclizine [Antivert] 25 mg PO TID PRN 08/13/17 09/01/17 History Lisinopril [Prinivil] 10 mg PO DAILY #30 tab 09/02/17 Rx amLODIPine [Norvasc] 2.5 mg PO DAILY #30 tablet 09/02/17 Rx Allergies Allergy/AdvReac Type Severity Reaction Status Date / Time chocolate flavor Allergy Rash/Hives Verified 09/01/17 10:36 [place] And Derivatives Allergy Rash/Hives Verified 09/01/17 10:36 [[place]] Physical Exam Vitals: Vital Signs Temp Pulse Pulse Resp BP BP BP 09/02/17 11:35 98.1 F 71 18 125/81 09/02/17 08:00 18 09/02/17 07:25 97.7 F 72 18 143/89 09/02/17 04:00 97.9 F 77 18 115/66 09/02/17 00:00 98.0 F 69 18 109/69 09/01/17 20:00 18 09/01/17 19:48 97.7 F 69 18 119/76 09/01/17 15:33 97.4 F L 69 18 117/69 09/01/17 13:40 97.5 F L 62 18 117/76 09/01/17 12:54 61 16 100/61 Pulse Ox 09/02/17 11:35 97 09/02/17 08:00 09/02/17 07:25 98 09/02/17 04:00 100 09/02/17 00:00 97 09/01/17 20:00 09/01/17 19:48 99 09/01/17 15:33 98 09/01/17 13:40 98 09/01/17 12:54 97 Intake and Output 09/01/17 09/02/17 09/02/17 22:59 06:59 14:59 Intake Total 1022 720 Balance 1022 720 Intake: Oral 1022 720 Other: # Voids 1 1 PHYSICAL EXAMINATION: HEENT: Head is atraumatic, normocephalic. Pupils equal, round. Neck is supple. There is no elevated jugular venous pressure. HEART EXAMINATION: Heart sounds regular, S1 and S2 normal. No murmur or gallop heard. CHEST EXAMINATION: Lungs are clear to auscultation and precussion. No chest wall tenderness is noted on palpation or with deep breathing. ABDOMEN: Soft, nontender. Bowel sounds are heard. No organomegaly noted. EXTREMITIES: 2+ peripheral pulses with no evidence of peripheral edema and no calf tenderness noted. NEUROLOGIC patient is awake, alert and oriented x3. . Results 09/01/17 09:56 09/02/17 06:37 Cardiac Enzymes 09/02/17 Range/Units 06:37 Troponin I <0.012 (0.000-0.034) ng/mL Comprehensive Metabolic Panel 09/02/17 Range/Units 06:37 Sodium 137 (137-145) mmol/L Potassium 4.4 (3.5-5.1) mmol/L Chloride 108 H (98-107) mmol/L Carbon Dioxide 22 (22-30) mmol/L BUN 16 (9-20) mg/dL Creatinine 1.20 (0.66-1.25) mg/dL Glucose 115 H (74-99) mg/dL Calcium 8.3 L (8.4-10.2) mg/dL Current Medications Generic Name Dose Route Start Last Admin Trade Name Freq PRN Reason Stop Dose Admin Acetaminophen 650 mg 09/01/17 12:17 Tylenol Tab PO Q6HR PRN Mild Pain or Fever > 100.5 Hydrocodone Bitart/Acetaminophen 1 each 09/01/17 13:00 09/01/17 20:52 [place] 10 PO 1 each BID PRN Administration Moderate Pain Aspirin 81 mg 09/01/17 21:00 09/01/17 20:52 Aspirin PO 81 mg HS EDWARDO Administration Atorvastatin Calcium 80 mg 09/01/17 21:00 09/01/17 20:52 Lipitor PO 80 mg HS EDWARDO Administration Sodium Chloride 1,000 mls @ 100 mls/hr 09/01/17 12:30 09/02/17 00:25 Saline 0.9% IV 100 mls/hr .Q10H EDWARDO Administration Naloxone HCl 0.2 mg 09/01/17 12:17 Narcan IV Q2M PRN Opioid Reversal Nitroglycerin 0.4 mg 09/01/17 13:00 Nitrostat SUBLINGUAL Q5M PRN Chest Pain Pantoprazole Sodium 40 mg 09/02/17 09:00 09/02/17 08:20 Protonix PO 40 mg DAILY EDWARDO Administration Ranolazine 1,000 mg 09/01/17 21:00 09/02/17 08:20 Ranexa PO 1,000 mg BID EDWARDO Administration Intake and Output 09/01/17 09/02/17 09/02/17 22:59 06:59 14:59 Intake Total 1022 720 Balance 1022 720 Intake: Oral 1022 720 Other: # Voids 1 1 09/01/17 09:56 09/02/17 06:37 Assessment and Plan Assessment: #1 dehydration #2 hypotension 3 near syncope secondary to above #4 history of CAD status post CABG and PCI #5 hypertension #6 hyperlipidemia Plan: From director of field service perspective, stop amlodipine, hold lisinopril. Continue metoprolol 50mg BID, Ranexa 100mg BID, and Imdur 60 mg daily. He was advised to stay well hydrated. Follow his blood pressure at home. Follow-up in the office with Dr. Jorgensen in 3 weeks. 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 Patient was seen and examined.
[2017-09-02 15:23] VITALS: BP 127/88; PULSE 74
[2017-09-02] MEDS ORDERED: METOPROLOL TARTRATE 50 MG TAB PO SCH (21:00)
[2017-09-03] MEDS ORDERED: ISOSORBIDE MONONITRATE ER 60 MG TAB.ER.24H PO SCH (09:00)
== END 2017-09-02 16:00 | disposition home or self-care (01) ==
LOC: EC 09:36 → 3OBS 12:17 → 3SUR 18:34
PROVIDERS: ADMIT Internal Medicine Geriatric Medicine; ATTEND Internal Medicine Geriatric Medicine
DX: I95.9 Hypotension, unspecified (principal); N17.9 Acute kidney failure, unspecified; E87.2 Acidosis; E86.0 Dehydration; I12.9 Hypertensive chronic kidney disease with stage 1 through stage 4 chronic kidney disease, or unspecified chronic kidney disease; N18.2 Chronic kidney disease, stage 2 (mild); H81.10 Benign paroxysmal vertigo, unspecified ear; I25.119 Atherosclerotic heart disease of native coronary artery with unspecified angina pectoris; J44.9 Chronic obstructive pulmonary disease, unspecified; I25.5 Ischemic cardiomyopathy; E78.5 Hyperlipidemia, unspecified; G47.30 Sleep apnea, unspecified; G43.909 Migraine, unspecified, not intractable, without status migrainosus; G62.9 Polyneuropathy, unspecified; F17.290 Nicotine dependence, other tobacco product, uncomplicated; F41.9 Anxiety disorder, unspecified; F32.9 Major depressive disorder, single episode, unspecified; K57.90 Diverticulosis of intestine, part unspecified, without perforation or abscess without bleeding; K29.70 Gastritis, unspecified, without bleeding; K21.9 Gastro-esophageal reflux disease without esophagitis; Z79.82 Long term (current) use of aspirin; Z79.899 Other long term (current) drug therapy; Z91.018 Allergy to other foods; Z95.5 Presence of coronary angioplasty implant and graft; Z90.49 Acquired absence of other specified parts of digestive tract; Z86.73 Personal history of transient ischemic attack (TIA), and cerebral infarction without residual deficits; I25.2 Old myocardial infarction; Z87.442 Personal history of urinary calculi; Z87.19 Personal history of other diseases of the digestive system; Z87.01 Personal history of pneumonia (recurrent); Z87.440 Personal history of urinary (tract) infections; Z87.81 Personal history of (healed) traumatic fracture; Z95.1 Presence of aortocoronary bypass graft; Z80.1 Family history of malignant neoplasm of trachea, bronchus and lung; Z82.49 Family history of ischemic heart disease and other diseases of the circulatory system; Z80.42 Family history of malignant neoplasm of prostate
CPT/HCPCS: 99285 ×2; 96360 ×2; 96361 ×3; 36415; 80053; 80048; 82550; 82553; 83605; 83735; 84484 ×2; 85025; 85610; 85730; 81003; 71046; G0378 ×2

== ENCOUNTER → 2017-10-03 | Day surgery (SDC) | payer MEDICARE, OTHER ==
[2017-09-26 15:37] VITALS: BMI 37.6
[~2017-10-03] MED LIST: SODIUM CHLORIDE 0.9% 1,000 ML IV SCH
[2017-10-03 08:13] VITALS: RESP 18; TEMP 98
[2017-10-03 09:13] LABS: Glucose,Whole Blood 93 mg/dL (75-99)
[2017-10-03 12:58] VITALS: BP 120/72; PULSE 76
--- NOTE | 2017-10-03 19:37 | P.PCN ---
Preoperative Diagnosis: Symptoms Recurrent syncope and blackout spells Twelve-lead ECG shows sinus rhythm normal GA narrow QRS ST segment elevation inferior leads with Q waves in lead 3 normal QT interval no delta waves Tilt table test per protocol Baseline blood pressure 125/70 mmHg Baseline heart rate 60 beats a minute Patient was tilted upright at an angle of 70 per protocol there was a minimal drop in blood pressure by about 10 points but then his blood pressure remained stable. No evidence for dysautonomia no evidence for neurocardiogenic syncope Impression Normal heart rate and blood pressure response to upright tilting Isolated Q-wave in the inferior leads with him on millimeter ST elevation in the inferior leads at baseline normal GA narrow QRS
== END ==
LOC: CATHEP 05:35
PROVIDERS: ATTEND Internal Medicine Clinical Cardiac Electrophysiology
DX: R55 Syncope and collapse (principal); I25.10 Atherosclerotic heart disease of native coronary artery without angina pectoris; I10 Essential (primary) hypertension; E78.2 Mixed hyperlipidemia; Z95.1 Presence of aortocoronary bypass graft; Z82.49 Family history of ischemic heart disease and other diseases of the circulatory system; F17.210 Nicotine dependence, cigarettes, uncomplicated; F17.290 Nicotine dependence, other tobacco product, uncomplicated; Z79.82 Long term (current) use of aspirin; Z79.899 Other long term (current) drug therapy
CPT/HCPCS: 93660

== ENCOUNTER 2017-11-24 20:26 | Observation (INO) | payer MEDICARE, OTHER ==
[2017-11-24] MEDS ORDERED: ASPIRIN 81 MG PO STA (21:06)
[2017-11-24 21:33] LABS: INR 1.1 (<1.2); Partial Thromboplastin Time 22.3 sec (22.0-30.0); Prothrombin Time 10.5 sec (9.0-12.0)
[2017-11-24 21:35] LABS: Albumin 3.7 g/dL (3.5-5.0); Calcium 8.6 mg/dL (8.4-10.2); Magnesium 1.7 mg/dL (1.6-2.3); Potassium 4.7 mmol/L (3.5-5.1); Total Bilirubin 0.7 mg/dL (0.2-1.3); Total Protein 6.5 g/dL (6.3-8.2)
[2017-11-24 21:37] LABS: Creatine Kinase 23 U/L (55-170)
[2017-11-24 21:46] LABS: Anisocytosis Slight; Basophils % (A) 0 %; Eosinophils # (A) 0.1 k/uL (0-0.7); Eosinophils % (A) 1 %; HCT 36.1 % (39.0-53.0); HGB 11.6 gm/dL (13.0-17.5); Hypochromasia Moderate; Lymphocytes # (A) 1.6 k/uL (1.0-4.8); Lymphocytes % (A) 19 %; MCH 24.6 pg (25.0-35.0); MCV 76.8 fL (80.0-100.0); Mean Platelet Volume 6.4; Microcytosis Slight; Monocytes # (A) 0.4 k/uL (0-1.0); Monocytes % (A) 5 %; Neutrophils # (A) 6.2 k/uL (1.3-7.7); Neutrophils % (A) 73 %; Platelet Count 262 k/uL (150-450); RDW 17.2 % (11.5-15.5); WBC 8.5 k/uL (3.8-10.6)
[2017-11-24 21:50] LABS: Creatine Kinase MB 0.7 ng/mL (0.0-2.4); Troponin I <0.012 ng/mL (0.000-0.034)
--- NOTE | 2017-11-24 21:59 | ED ---
General Adult HPI - General Chief complaint: Chest Pain Stated complaint: Chest pain Source: patient Mode of arrival: EMS Limitations: no limitations - History of Present Illness Initial comments: Dictation was produced using [email or web address] dictation software. please excuse any grammatical, word or spelling errors. Chief Complaint: 52-year-old male past medical history of coronary artery disease, 7 MIs, hypertension presents with chest pain. History of Present Illness: Patient was at home at rest when he began spritzing chest pain. States that it was anterior crushing substernal chest pressure. Denies any radiation to shoulders or neck. No associated diaphoresis. No nausea or vomiting. Patient has 7 MIs in the past. He has 4 stents and has had bypass grafts. His travel money advisor is Dr. Jorgensen. Patient took 3 nitros with resolution of his symptoms. Patient called EMS arrived to the emergency department. Patient feels as though his chest symptoms have resolved. The ROS documented in this emergency department record has been reviewed and confirmed by me. Those systems with pertinent positive or negative responses have been documented in the HPI. All other systems are other negative and/or noncontributory. - Related Data Home Medications Medication Instructions Recorded Confirmed Atorvastatin [Lipitor] 80 mg PO HS 06/25/13 11/24/17 HYDROcodone/APAP 10-325MG [[place] 1 tab PO BID PRN 06/25/13 11/24/17 10-325] Metoprolol Tartrate [Lopressor] 50 mg PO BID 06/25/13 11/24/17 Nitroglycerin Sl Tabs [Nitrostat] 0.4 mg SUBLINGUAL Q5M PRN 06/25/13 11/24/17 Ranolazine [Ranexa] 1,000 mg PO BID 09/23/13 11/24/17 Pantoprazole Sodium [Protonix] 40 mg PO DAILY 07/02/14 11/24/17 Isosorbide Mononitrate ER [Imdur] 60 mg PO BID 10/13/15 11/24/17 Aspirin [Adult Low Dose Aspirin EC] 81 mg PO HS 01/11/16 11/24/17 Phentermine HCl [Adipex-P] 37.5 mg PO DAILY 04/04/17 11/24/17 Meclizine [Antivert] 25 mg PO TID PRN 08/13/17 11/24/17 Lactulose [Cephulac] 20 gm PO BID PRN 09/26/17 11/24/17 Lisinopril [Zestril] 10 mg PO DAILY 09/26/17 11/24/17 amLODIPine [Norvasc] 2.5 mg PO DAILY 09/26/17 11/24/17 metFORMIN HCL [Glucophage] 500 mg PO BID 09/26/17 11/24/17 Allergies Allergy/AdvReac Type Severity Reaction Status Date / Time chocolate flavor Allergy Rash/Hives Verified 11/24/17 20:44 [place] And Derivatives Allergy Rash/Hives Verified 11/24/17 20:44 [[place]] Review of Systems ROS Statement: Those systems with pertinent positive or pertinent negative responses have been documented in the HPI. ROS Other: All systems not noted in ROS Statement are negative. 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 Last Myocardial Infarction Date:: 01-22-2011 History of Any Multi-Drug Resistant Organisms: None Reported Past Surgical History: Adenoidectomy, Cholecystectomy, Coronary Bypass/CABG, Heart Catheterization, Heart Catheterization With Stent, Hernia Repair Additional Past Surgical History / Comment(s): Several caths with last one done 07/02/14 treated medically, total 4 stents (states placed 01/2011), CABG 5 vessel in 2008 (stents came after open heart was done), EGD/colonoscopy, hemorrhoid banding, possible pain injections lower back, umbilical hernia repair Past Anesthesia/Blood Transfusion Reactions: Previous Problems w/ Anesthesia Additional Past Anesthesia/Blood Transfusion Reaction / Comment(s): stated "wakes up slower than normal" Date of Last Stent Placement:: 01-22-2011 Past Psychological History: No Psychological Hx Reported, Anxiety, Depression Smoking Status: Current every day smoker - Past Family History Father Family Medical History: Coronary Artery Disease (CAD) Additional Family Medical History / Comment(s): dad is 75. stents, bypass, prostate and lung cancer. Mother Additional Family Medical History / Comment(s): mom 1997 at age 59- brain aneurysm General Exam - General Exam Comments Initial Comments: PHYSICAL EXAM: General Impression: Alert and oriented x3, not in acute distress HEENT: Normocephalic atraumatic, extra-ocular movements intact, pupils equal and reactive to light bilaterally, mucous membranes moist. Cardiovascular: Heart regular rate and rhythm, S1&S2 audible, no murmurs, rubs or gallops Chest: Lungs clear to auscultation bilaterally, no rhonchi, no wheeze, no rales Abdomen: Bowel sounds present, abdomen soft, non-tender, non-distended, no organomegaly Musculoskeletal: Pulses present and equal in all extremities, no peripheral edema Motor: Power 5/5 bilaterally, no focal deficits noted Neurological: CN II-XII grossly intact, no focal motor or sensory deficits noted Skin: Intact with no visualized rashes Psych: Normal affect and mood Limitations: no limitations Course Vital Signs 11/24/17 20:28 Temperature 98.1 F Pulse Rate 74 Respiratory 20 Rate Blood Pressure 136/82 O2 Sat by Pulse 97 Oximetry Medical Decision Making - Medical Decision Making ED course: 52 Year old male with extensive history of cardiac disease presents with chest pain. Vital signs upon arrival are within acceptable limits. Patient's presentation is atypical with typical features. EKGs benign. Laboratory evaluation obtained. CBC is unremarkable. Coag panel unremarkable. Metabolic panel is negative. Cardiac enzymes are negative. Abdominal labs are negative. Chest x-ray shows no acute processes. Clinical presentation consistent with atypical chest pain with typical features. Patient has extensive cardiac history. Patient to be admitted observation for so troponins and cardiology consultation. Patient is understandable and agreeable to this plan. He is given an aspirin. EKG Interpretation: A 12 lead EKG was obtained. It was interpreted by myself and attending physician. There is a P wave before every QRS complex. Rate is 73. Rhythm is normal sinus rhythm, SD interval 186, QRS 76, QTC 456. QT is not prolonged. No ST segment depression or elevation. Overall there is nonspecific T-wave inversion in aVL. No signs of STEMI. No overt signs of ischemia. - Lab Data Result diagrams: 11/24/17 21:07 11/24/17 21:07 Lab Results 11/24/17 11/24/17 11/24/17 Range/Units 21:07 21:07 21:07 WBC 8.5 (3.8-10.6) k/uL RBC 4.70 (4.30-5.90) m/uL Hgb 11.6 L (13.0-17.5) gm/dL Hct 36.1 L (39.0-53.0) % MCV 76.8 L (80.0-100.0) fL MCH 24.6 L (25.0-35.0) pg MCHC 32.0 (31.0-37.0) g/dL RDW 17.2 H (11.5-15.5) % Plt Count 262 (150-450) k/uL Neutrophils % 73 % Lymphocytes % 19 % Monocytes % 5 % Eosinophils % 1 % Basophils % 0 % Neutrophils # 6.2 (1.3-7.7) k/uL Lymphocytes # 1.6 (1.0-4.8) k/uL Monocytes # 0.4 (0-1.0) k/uL Eosinophils # 0.1 (0-0.7) k/uL Basophils # 0.0 (0-0.2) k/uL Hypochromasia Moderate Anisocytosis Slight Microcytosis Slight PT (9.0-12.0) sec INR (<1.2) APTT (22.0-30.0) sec Sodium 137 (137-145) mmol/L Potassium 4.7 (3.5-5.1) mmol/L Chloride 106 (98-107) mmol/L Carbon Dioxide 22 (22-30) mmol/L Anion Gap 9 mmol/L BUN 23 H (9-20) mg/dL Creatinine 1.15 (0.66-1.25) mg/dL Est GFR (CKD-EPI)AfAm 85 (>60 ml/min/1.73 sqM) Est GFR (CKD-EPI)NonAf 74 (>60 ml/min/1.73 sqM) Glucose 113 H (74-99) mg/dL Calcium 8.6 (8.4-10.2) mg/dL Magnesium 1.7 (1.6-2.3) mg/dL Total Bilirubin 0.7 (0.2-1.3) mg/dL AST 20 (17-59) U/L ALT 30 (21-72) U/L Alkaline Phosphatase 66 (38-126) U/L Total Creatine Kinase 23 L (55-170) U/L CK-MB (CK-2) 0.7 (0.0-2.4) ng/mL CK-MB (CK-2) Rel Index 3.0 Troponin I <0.012 (0.000-0.034) ng/mL Total Protein 6.5 (6.3-8.2) g/dL Albumin 3.7 (3.5-5.0) g/dL Lipase 134 (23-300) U/L 11/24/17 Range/Units 21:07 WBC (3.8-10.6) k/uL RBC (4.30-5.90) m/uL Hgb (13.0-17.5) gm/dL Hct (39.0-53.0) % MCV (80.0-100.0) fL MCH (25.0-35.0) pg MCHC (31.0-37.0) g/dL RDW (11.5-15.5) % Plt Count (150-450) k/uL Neutrophils % % Lymphocytes % % Monocytes % % Eosinophils % % Basophils % % Neutrophils # (1.3-7.7) k/uL Lymphocytes # (1.0-4.8) k/uL Monocytes # (0-1.0) k/uL Eosinophils # (0-0.7) k/uL Basophils # (0-0.2) k/uL Hypochromasia Anisocytosis Microcytosis PT 10.5 (9.0-12.0) sec INR 1.1 (<1.2) APTT 22.3 (22.0-30.0) sec Sodium (137-145) mmol/L Potassium (3.5-5.1) mmol/L Chloride (98-107) mmol/L Carbon Dioxide (22-30) mmol/L Anion Gap mmol/L BUN (9-20) mg/dL Creatinine (0.66-1.25) mg/dL Est GFR (CKD-EPI)AfAm (>60 ml/min/1.73 sqM) Est GFR (CKD-EPI)NonAf (>60 ml/min/1.73 sqM) Glucose (74-99) mg/dL Calcium (8.4-10.2) mg/dL Magnesium (1.6-2.3) mg/dL Total Bilirubin (0.2-1.3) mg/dL AST (17-59) U/L ALT (21-72) U/L Alkaline Phosphatase (38-126) U/L Total Creatine Kinase (55-170) U/L CK-MB (CK-2) (0.0-2.4) ng/mL CK-MB (CK-2) Rel Index Troponin I (0.000-0.034) ng/mL Total Protein (6.3-8.2) g/dL Albumin (3.5-5.0) g/dL Lipase (23-300) U/L Disposition Clinical Impression: Chest pain Disposition: ADMITTED IP TO THIS [facility] Condition: Fair Referrals: Sahrron Hernández MD [Primary Care Provider] - 1-2 days Decision Time: 22:37
--- NOTE | 2017-11-24 22:30 | XR ---
EXAMINATION TYPE: XR chest 2V DATE OF EXAM: 11/24/2017 COMPARISON: 09/01/2017 HISTORY: Chest pain TECHNIQUE: Frontal and lateral views of the chest are obtained. FINDINGS: There is no heart failure nor confluent pneumonic infiltrate. Heart and mediastinum are no rmal. There are chest leads. There are sternal wires. Costophrenic angles are clear. The bony thorax is intact. IMPRESSION: No cardiopulmonary disease. No change.
[2017-11-24] MEDS ORDERED: NITROGLYCERIN SL TABS 0.4 MG TAB SUBLINGUAL PRN (22:34)
[2017-11-25] MEDS ORDERED: MECLIZINE 25 MG TAB PO PRN (01:47)
[2017-11-25] MEDS ORDERED: LACTULOSE 20 GM/30 ML CUP PO PRN (01:47)
[2017-11-25] MEDS ORDERED: HYDROcodone/APAP 10-325MG 1 EACH TAB PO PRN (01:47)
[2017-11-25] MEDS ORDERED: NON-FORMULARY DRUG (Aspirin [Adult Low Dose Aspirin Ec] 81 MG) PO SCH (01:48)
[2017-11-25] MEDS: ONDANSETRON 4 MG/2 ML VIAL IVP PRN ×3 (02:22→18:07)
[2017-11-25] MEDS: MORPHINE SULFATE 2 MG/ML SYRINGE IVP PRN ×3 (02:22→18:07)
[2017-11-25] MEDS: RANOLAZINE 500 MG TAB.ER.12H PO SCH ×3 (02:23→22:37)
[2017-11-25] MEDS: METOPROLOL TARTRATE 50 MG TAB PO SCH ×3 (02:23→22:38)
[2017-11-25] MEDS: ATORVASTATIN 80 MG TAB PO SCH ×2 (02:25→22:37)
[2017-11-25] MEDS: ISOSORBIDE MONONITRATE ER 60 MG TAB.ER.24H PO SCH ×3 (02:26→22:37)
[2017-11-25 04:05] LABS: Creatine Kinase 22 U/L (55-170)
[2017-11-25 04:06] LABS: Cholesterol 112 mg/dL (<200); HDL Cholesterol 49 mg/dL (40-60); LDL Cholesterol,Calculated 34 mg/dL (0-99); Triglycerides 147 mg/dL (<150)
[2017-11-25 04:18] LABS: Creatine Kinase MB 0.6 ng/mL (0.0-2.4); Troponin I <0.012 ng/mL (0.000-0.034)
[2017-11-25 08:28] LABS: Glucose,Whole Blood 100 mg/dL (75-99)
--- NOTE | 2017-11-25 08:43 | P.CRDCN ---
History of Present Illness Consult date: 11/25/17 Chief complaint: Chest discomfort History of present illness: This is a pleasant 52-year-old gentleman who sees Dr. Jorgensen in the office as an outpatient with a past medical history significant for coronary artery disease and prior CABG and stenting, the details are unavailable at this point, the patient underwent CABG in 2008 and the last stenting was in 2010. The last heart catheterization according to home was in 2014 which did not reveal any significant finding. Beside that he does have hypertension and dyslipidemia. He was in his usual state of health yesterday when he was sitting watching a game on the TV and started experiencing chest discomfort, in the mid of the chest, as a sharp kind of discomfort, with some radiation to the neck. No shortness of breath. No dizziness or lightheadedness. No sweating. No nausea or vomiting. He took one nitroglycerin without improvement in the symptoms and the second nitroglycerin did make him feel slightly better. Currently the patient is having chest discomfort around 3/10 in intensity disease. The EKG showed sinus rhythm with T-wave inversion in 1 and aVL which seems to be an old compared to previous EKG. 3 sets of cardiac enzymes were checked and came in to be unremarkable. The chest x-ray did not show any acute abnormalities. The patient is on maximize medical treatment consistent of antiplatelets, metoprolol, lisinopril, isosorbide mononitrate, and he is also on the Ranexa. The last stress test was performed in June 2017 and that showed no ischemia. 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 Last Myocardial Infarction Date:: 01-22-2011 History of Any Multi-Drug Resistant Organisms: None Reported Past Surgical History: Adenoidectomy, Cholecystectomy, Coronary Bypass/CABG, Heart Catheterization, Heart Catheterization With Stent, Hernia Repair Additional Past Surgical History / Comment(s): Several caths with last one done 07/02/14 treated medically, total 4 stents (states placed 01/2011), CABG 5 vessel in 2008 (stents came after open heart was done), EGD/colonoscopy, hemorrhoid banding, possible pain injections lower back, umbilical hernia repair Past Anesthesia/Blood Transfusion Reactions: Previous Problems w/ Anesthesia Additional Past Anesthesia/Blood Transfusion Reaction / Comment(s): stated "wakes up slower than normal" Date of Last Stent Placement:: 01-22-2011 Smoking Status: Light tobacco smoker - Past Family History Father Family Medical History: Coronary Artery Disease (CAD) Additional Family Medical History / Comment(s): dad is 75. stents, bypass, prostate and lung cancer. Mother Additional Family Medical History / Comment(s): mom 1997 at age 59- brain aneurysm Medications and Allergies Home Medications Medication Instructions Recorded Confirmed Type Atorvastatin [Lipitor] 80 mg PO HS 06/25/13 11/24/17 History HYDROcodone/APAP 10-325MG [[place] 1 tab PO BID PRN 06/25/13 11/24/17 History 10-325] Metoprolol Tartrate [Lopressor] 50 mg PO BID 06/25/13 11/24/17 History Nitroglycerin Sl Tabs [Nitrostat] 0.4 mg SUBLINGUAL Q5M PRN 06/25/13 11/25/17 History Ranolazine [Ranexa] 1,000 mg PO BID 09/23/13 11/24/17 History Pantoprazole Sodium [Protonix] 40 mg PO DAILY 07/02/14 11/24/17 History Isosorbide Mononitrate ER [Imdur] 60 mg PO BID 10/13/15 11/24/17 History Aspirin [Adult Low Dose Aspirin EC] 81 mg PO HS 01/11/16 11/24/17 History Meclizine [Antivert] 25 mg PO TID PRN 08/13/17 11/24/17 History Lactulose [Cephulac] 20 gm PO BID PRN 09/26/17 11/24/17 History Lisinopril [Zestril] 10 mg PO DAILY 09/26/17 11/24/17 History amLODIPine [Norvasc] 2.5 mg PO DAILY 09/26/17 11/24/17 History metFORMIN HCL [Glucophage] 500 mg PO BID 09/26/17 11/24/17 History Allergies Allergy/AdvReac Type Severity Reaction Status Date / Time chocolate flavor Allergy Rash/Hives Verified 11/25/17 00:42 [place] And Derivatives Allergy Rash/Hives Verified 11/25/17 00:42 [[place]] Physical Exam Vitals: Vital Signs Temp Pulse Pulse Resp BP BP Pulse Ox 11/25/17 07:57 97.8 F 62 16 104/76 96 11/25/17 03:41 98.3 F 69 16 114/64 97 11/25/17 03:35 16 11/25/17 00:36 97.9 F 69 16 144/93 97 11/25/17 00:07 85 20 120/82 99 11/25/17 00:00 16 11/24/17 20:28 98.1 F 74 20 136/82 97 Intake and Output 11/24/17 11/25/17 11/25/17 22:59 06:59 14:59 Intake Total 50 Balance 50 Intake: Amount of Fluid Infused ( 50 ml) Other: # Voids 1 Weight 122.47 kg 122.4 kg - Constitutional General appearance: no acute distress - Respiratory Respiratory: bilateral: CTA - Cardiovascular Rhythm: regular Heart sounds: normal: S1, S2 Results 11/24/17 21:07 11/24/17 21:07 Cardiac Enzymes 11/24/17 11/24/17 11/25/17 Range/Units 21:07 21:07 03:00 AST 20 (17-59) U/L CK-MB (CK-2) 0.7 0.6 (0.0-2.4) ng/mL Troponin I <0.012 <0.012 (0.000-0.034) ng/mL Coagulation 11/24/17 Range/Units 21:07 PT 10.5 (9.0-12.0) sec APTT 22.3 (22.0-30.0) sec Lipids 11/25/17 Range/Units 03:00 Triglycerides 147 (<150) mg/dL Cholesterol 112 (<200) mg/dL HDL Cholesterol 49 (40-60) mg/dL CBC 11/24/17 Range/Units 21:07 WBC 8.5 (3.8-10.6) k/uL RBC 4.70 (4.30-5.90) m/uL Hgb 11.6 L (13.0-17.5) gm/dL Hct 36.1 L (39.0-53.0) % Plt Count 262 (150-450) k/uL Comprehensive Metabolic Panel 11/24/17 Range/Units 21:07 Sodium 137 (137-145) mmol/L Potassium 4.7 (3.5-5.1) mmol/L Chloride 106 (98-107) mmol/L Carbon Dioxide 22 (22-30) mmol/L BUN 23 H (9-20) mg/dL Creatinine 1.15 (0.66-1.25) mg/dL Glucose 113 H (74-99) mg/dL Calcium 8.6 (8.4-10.2) mg/dL AST 20 (17-59) U/L ALT 30 (21-72) U/L Alkaline Phosphatase 66 (38-126) U/L Total Protein 6.5 (6.3-8.2) g/dL Albumin 3.7 (3.5-5.0) g/dL Current Medications Generic Name Dose Route Start Last Admin Trade Name Freq PRN Reason Stop Dose Admin Hydrocodone Bitart/Acetaminophen 1 each 11/25/17 01:47 [place] 10 PO BID PRN Pain Amlodipine Besylate 2.5 mg 11/25/17 09:00 Norvasc PO DAILY [facility] Aspirin 325 mg 11/25/17 09:00 Aspirin PO DAILY [facility] Atorvastatin Calcium 80 mg 11/25/17 01:49 11/25/17 02:25 Lipitor PO 80 mg HS [facility] Administration Isosorbide Mononitrate 60 mg 11/25/17 02:00 11/25/17 02:26 Imdur PO 60 mg BID [facility] Administration Lactulose 20 gm 11/25/17 01:47 Cephulac PO BID PRN Constipation Lisinopril 10 mg 11/25/17 09:00 Zestril PO DAILY [facility] Meclizine HCl 25 mg 11/25/17 01:47 Antivert PO TID PRN Nasal Congestion Metformin HCl 500 mg 11/25/17 07:30 Glucophage PO BID-W/MEALS [facility] Metoprolol Tartrate 50 mg 11/25/17 02:00 11/25/17 02:23 Lopressor PO 50 mg BID [facility] Administration Morphine Sulfate 2 mg 11/25/17 01:50 11/25/17 02:22 Morphine Sulfate (Inj) IVP 2 mg Q4H PRN Administration Pain/Discomfort Nitroglycerin 0.4 mg 11/24/17 22:34 Nitrostat SUBLINGUAL Q5M PRN Chest Pain Ondansetron HCl 4 mg 11/25/17 01:51 11/25/17 02:22 Zofran IVP 4 mg Q6HR PRN Administration Nausea And Vomiting Pantoprazole Sodium 40 mg 11/25/17 09:00 Protonix PO DAILY [facility] Ranolazine 1,000 mg 11/25/17 02:00 11/25/17 02:23 Ranexa PO 1,000 mg BID [facility] Administration Intake and Output 11/24/17 11/25/17 11/25/17 22:59 06:59 14:59 Intake Total 50 Balance 50 Intake: Amount of Fluid Infused ( 50 ml) Other: # Voids 1 Weight 122.47 kg 122.4 kg 11/24/17 21:07 11/24/17 21:07 Assessment and Plan Assessment: Assessment #1 chest discomfort #2 severe underlying CAD with prior revascularization #3 status post CABG and status post PCI #4 hypertension #5 dyslipidemia Plan #1 the patient was ruled out for acute coronary event #2 and recommended monitor the patient for additional 24 hours #3 if he develops any worsening chest discomfort I would recommend proceeding with a coronary angiogram #4 follow-up with the patient. Thank you for allowing us participate in his care and we'll continue following up with the patient
[2017-11-25] MEDS: metFORMIN 500 MG TAB PO SCH ×2 (09:05→18:07)
[2017-11-25 10:05] LABS: Creatine Kinase 24 U/L (55-170)
[2017-11-25 10:19] LABS: Creatine Kinase MB 0.8 ng/mL (0.0-2.4); Troponin I <0.012 ng/mL (0.000-0.034)
[2017-11-25 12:03] LABS: Glucose,Whole Blood 129 mg/dL (75-99)
[2017-11-25] MEDS: LISINOPRIL 10 MG TAB PO SCH (13:21)
[2017-11-25] MEDS: amLODIPine 2.5 MG TAB PO SCH (13:21)
[2017-11-25] MEDS: ASPIRIN 325 MG TAB PO SCH (13:21)
[2017-11-25] MEDS: PANTOPRAZOLE 40 MG TABLET PO SCH (13:22)
[2017-11-25] MEDS: NITROGLYCERIN OINT 1 INCH/GM PACKET TOPICAL SCH (15:37)
[2017-11-25 17:16] LABS: Glucose,Whole Blood 107 mg/dL (75-99)
--- NOTE | 2017-11-25 18:35 | P.HPIM ---
History of Present Illness H&P Date: 11/25/17 Chief Complaint: Chest pain This is 52 years old male with past medical history significant for coronary artery disease presents to the hospital with new onset chest pain. Patient said that the pain has been happening on and off for the last 3 days but got worse to the point where he determined to come into the emergency department. Patient described the pain as tightness located to the mediastinum radiating to his left shoulder and his neck stated similar to the neck pain and shoulder pain that he had when he had his first heart attack. Patient was diaphoretic and having nausea but denied any vomiting and denied passing out. Patient currently is pain-free complaining of some left shoulder pain see that separate from that pain and most likely is related to his osteoarthritis. Patient is tolerating diet without difficulties denying shortness breath nausea vomiting abdominal pain dizziness lightheadedness. Vision burning in urination or recent upper respiratory infection. Patient still smoke 1-2 cigars a week, drinks alcohol on occasional basis and denied recreational drug abuse. Patient stated that he has been complicated with his medication and Actos follow-up and his most recent cardiac catheterization was done in 2014 where it was stable from prior evaluation. Patient is not sure what his hemoglobin A1c at this point and believes it's fairly controlled with metformin in the emergency department EKG showed nonspecific T-wave abnormality especially in V2 no other changes noted troponin was negative 2 and patient was admitted for observation Review of Systems All 14 systems reviewed and negative except as above Past Medical History Past Medical History: Coronary Artery Disease (CAD), Chest Pain / Angina, CVA/ TIA, Diabetes Mellitus, GI Bleed, Hyperlipidemia, Hypertension, Myocardial Infarction (CA), Pneumonia Additional Past Medical History / Comment(s): 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 Last Myocardial Infarction Date:: 01-22-2011 History of Any Multi-Drug Resistant Organisms: None Reported Past Surgical History: Adenoidectomy, Cholecystectomy, Coronary Bypass/CABG, Heart Catheterization, Heart Catheterization With Stent, Hernia Repair Additional Past Surgical History / Comment(s): Several caths with last one done 07/02/14 treated medically, total 4 stents (states placed 01/2011), CABG 5 vessel in 2008 (stents came after open heart was done), EGD/colonoscopy, hemorrhoid banding, possible pain injections lower back, umbilical hernia repair Past Anesthesia/Blood Transfusion Reactions: Previous Problems w/ Anesthesia Additional Past Anesthesia/Blood Transfusion Reaction / Comment(s): stated "wakes up slower than normal" Date of Last Stent Placement:: 01-22-2011 Smoking Status: Light tobacco smoker - Past Family History Father Family Medical History: Coronary Artery Disease (CAD) Additional Family Medical History / Comment(s): dad is 75. stents, bypass, prostate and lung cancer. Mother Additional Family Medical History / Comment(s): mom 1997 at age 59- brain aneurysm Medications and Allergies Home Medications Medication Instructions Recorded Confirmed Type Atorvastatin [Lipitor] 80 mg PO HS 06/25/13 11/24/17 History HYDROcodone/APAP 10-325MG [[place] 1 tab PO BID PRN 06/25/13 11/24/17 History 10-325] Metoprolol Tartrate [Lopressor] 50 mg PO BID 06/25/13 11/24/17 History Nitroglycerin Sl Tabs [Nitrostat] 0.4 mg SUBLINGUAL Q5M PRN 06/25/13 11/25/17 History Ranolazine [Ranexa] 1,000 mg PO BID 09/23/13 11/24/17 History Pantoprazole Sodium [Protonix] 40 mg PO DAILY 07/02/14 11/24/17 History Isosorbide Mononitrate ER [Imdur] 60 mg PO BID 10/13/15 11/24/17 History Aspirin [Adult Low Dose Aspirin EC] 81 mg PO HS 01/11/16 11/24/17 History Meclizine [Antivert] 25 mg PO TID PRN 08/13/17 11/24/17 History Lactulose [Cephulac] 20 gm PO BID PRN 09/26/17 11/24/17 History Lisinopril [Zestril] 10 mg PO DAILY 09/26/17 11/24/17 History amLODIPine [Norvasc] 2.5 mg PO DAILY 09/26/17 11/24/17 History metFORMIN HCL [Glucophage] 500 mg PO BID 09/26/17 11/24/17 History Allergies Allergy/AdvReac Type Severity Reaction Status Date / Time chocolate flavor Allergy Rash/Hives Verified 11/25/17 00:42 [place] And Derivatives Allergy Rash/Hives Verified 11/25/17 00:42 [[place]] Physical Exam Vitals: Vital Signs Temp Pulse Pulse Resp BP BP Pulse Ox 11/25/17 17:26 97.9 F 68 18 110/73 11/25/17 12:00 98 F 70 18 155/85 97 11/25/17 07:57 97.8 F 62 16 104/76 96 11/25/17 03:41 98.3 F 69 16 114/64 97 11/25/17 03:35 16 11/25/17 00:36 97.9 F 69 16 144/93 97 11/25/17 00:07 85 20 120/82 99 11/25/17 00:00 16 11/24/17 20:28 98.1 F 74 20 136/82 97 Intake and Output 11/25/17 11/25/17 11/25/17 06:59 14:59 22:59 Intake Total 50 200 200 Balance 50 200 200 Intake: Amount of Fluid Infused ( 50 ml) Oral 200 200 Other: # Voids 1 Weight 122.4 kg Results CBC & Chem 7: 11/24/17 21:07 11/24/17 21:07 Labs: Abnormal Lab Results - Last 24 Hours (Table) 11/24/17 11/24/17 11/24/17 Range/Units 21:07 21:07 21:07 Hgb 11.6 L (13.0-17.5) gm/dL Hct 36.1 L (39.0-53.0) % MCV 76.8 L (80.0-100.0) fL MCH 24.6 L (25.0-35.0) pg RDW 17.2 H (11.5-15.5) % BUN 23 H (9-20) mg/dL Glucose 113 H (74-99) mg/dL POC Glucose (mg/dL) (75-99) mg/dL Total Creatine Kinase 23 L (55-170) U/L 11/25/17 11/25/17 11/25/17 Range/Units 03:00 08:03 09:19 Hgb (13.0-17.5) gm/dL Hct (39.0-53.0) % MCV (80.0-100.0) fL MCH (25.0-35.0) pg RDW (11.5-15.5) % BUN (9-20) mg/dL Glucose (74-99) mg/dL POC Glucose (mg/dL) 100 H (75-99) mg/dL Total Creatine Kinase 22 L 24 L (55-170) U/L 11/25/17 11/25/17 Range/Units 12:01 16:58 Hgb (13.0-17.5) gm/dL Hct (39.0-53.0) % MCV (80.0-100.0) fL MCH (25.0-35.0) pg RDW (11.5-15.5) % BUN (9-20) mg/dL Glucose (74-99) mg/dL POC Glucose (mg/dL) 129 H 107 H (75-99) mg/dL Total Creatine Kinase (55-170) U/L Thrombosis Risk Factor Assmnt - Choose All That Apply Each Factor Represents 1 point: Age 41-60 years Thrombosis Risk Factor Assessment Total Risk Factor Score: 1 Thrombosis Risk Factor Assessment Level: Low Risk Assessment and Plan Assessment: 1. Chest pain. 2. Unstable angina. 3. Coronary artery disease status post stents in the past. 4. Diabetes mellitus type 2 [id number]. 5. Hyperlipidemia. 6. Hypertension. 7. Obesity. I have discussed the patient the plan with cardiology and later with patient and nursing staff at the bedside where patient may benefit from repeated cardiac catheterization and will keep patient's nothing by mouth after midnight for The catheterization in the morning cardiology is agreeable to the current treatment plan the patient says motivated to have the catheter catheterization done in the morning. Would continue To protect her medication follow-up with cardiology recommendation regarding treatment plan and continue monitoring vital signs closely. Discharge process based on clinical progress
[2017-11-25] MEDS ORDERED: ALPRAZolam 0.25 MG TAB PO PRN (18:38)
[2017-11-25] MEDS ORDERED: ALPRAZolam 0.5 MG TAB PO PRN (18:38)
[2017-11-25] MEDS ORDERED: SODIUM CHLORIDE 0.9% 1,000 ML in EMPTY BAG 1 BAG IV ONE (18:38)
[2017-11-25] MEDS ORDERED: LIDOCAINE 1% INJ 10MG/ML (20 ML MDV) ONE (19:11)
[2017-11-25] MEDS ORDERED: IV FLUID CONTINUATION 1,000 ML IV ONE (19:25)
[2017-11-25] MEDS ORDERED: MIDAZOLAM 2 MG/2 ML VIAL ONE ×2 (19:30→20:35)
[2017-11-25] MEDS ORDERED: MIDAZOLAM 2 MG/2 ML VIAL IVP ONE ×2 (19:36→20:36)
[2017-11-25] MEDS ORDERED: LIDOCAINE 1% INJ 10MG/ML (20 ML MDV) SQ ONE ×2 (19:44→19:45)
[2017-11-25] MEDS ORDERED: fentaNYL (PF) 50 MCG/ML 2 ML AMP ONE (19:45)
[2017-11-25] MEDS ORDERED: fentaNYL (PF) 50 MCG/ML 2 ML AMP IVP ONE (19:47)
[2017-11-25] MEDS ORDERED: BIVALIRUDIN BOLUS 250 MG/50 ML IV ONE (20:15)
[2017-11-25] MEDS ORDERED: BIVALIRUDIN 250 MG in SODIUM CHLORIDE 0.9% 50 ML IV ONE ×2 (20:16→20:45)
[2017-11-25] MEDS ORDERED: ADENOSINE 180 MG in SODIUM CHLORIDE 0.9% 30 ML IVP ONE (20:22)
[2017-11-25] MEDS ORDERED: CLOPIDOGREL 75 MG TAB ONE (20:27)
[2017-11-25] MEDS ORDERED: CLOPIDOGREL 75 MG TAB PO ONE (20:30)
[2017-11-25] MEDS ORDERED: IOPAMIDOL-370 125ML BTL INJ ONE (20:32)
[2017-11-25] MEDS ORDERED: IOPAMIDOL-370 100ML BTL INJ ONE ×2 (20:51→21:00)
[2017-11-25] MEDS ORDERED: NITROGLYCERIN 1000MCG/10ML SYRINGE INTRACORON ONE (20:55)
[2017-11-25] MEDS ORDERED: MAG HYDROX/AL HYDROX/SIMETH 30 ML CUP PO PRN (21:08)
[2017-11-25] MEDS ORDERED: RX INFO: IV CONTRAST WAS GIVEN 1 EACH MISC MISCELLANE PRN (21:08)
[2017-11-25] MEDS ORDERED: NITROGLYCERIN SL TABS 0.4 MG TAB SUBLINGUAL PRN (21:08)
[2017-11-25] MEDS ORDERED: ATROPINE SULFATE 0.1 MG/ML 10ML SYRINGE IV PRN (21:08)
[2017-11-25] MEDS ORDERED: ZOLPIDEM 5 MG TAB PO PRN (21:08)
[2017-11-25] MEDS ORDERED: SODIUM CHLORIDE 0.9% 1,000 ML IV SCH (21:15)
[2017-11-25 22:39] LABS: Hemoglobin A1C 6.4 % (4.0-6.0)
--- NOTE | 2017-11-25 22:50 | CC ---
CARDIAC CATHETERIZATION REPORT DATE OF SERVICE: November 25, 2017 PERFORMING PHYSICIAN: Bossman Santoyo MD. PROCEDURE PERFORMED: 1. Selective left and right coronary angiogram. 2. HOPKINS to LAD angiogram. 3. SVG to first and second diagonal angiogram. 4. SVG to obtuse marginal branch angiogram. 5. Fractional flow reserve of the left circumflex coronary artery. 6. Successful stenting of the proximal left circumflex using a 3.25 x 15 mm Xience drug-eluting stent with reduction of stenosis from 70% to 20% with REKHA-3 flow. INDICATION: This is a pleasant 52-year-old gentleman who sees Dr. Jorgensen in the office as an outpatient with a past medical history significant for coronary artery disease, coronary artery vascularization, hypertension, and dyslipidemia, presented to the hospital complaining of chest discomfort concerning for angina. The patient last heart catheterization was performed in 2014 and at that point, it did reveal patent saphenous vein graft to first and second diagonal as well as patent saphenous vein graft to obtuse marginal branch of the left circumflex. The HOPKINS was atrophic because the disease in the LAD itself was very mild. At that point, maximize medical treatment was advised. This time the patient presented to the hospital complaining of chest discomfort concerning for angina. He was on maximized medical treatment. Initially I recommended a conservative medical approach in view of the normal cardiac enzymes and no significant ST or T-wave abnormalities on the EKG. Unfortunately, the patient continues to have chest discomfort throughout the day and because of that, I recommended proceeding with a heart catheterization. APPROACH: Right common femoral artery. COMPLICATION: None. LEVEL OF SEDATION: Moderate with sedation length of 72 minutes. PROCEDURE DESCRIPTION: After obtaining an informed consent, the patient was brought to the cardiac prosthetic lab technician. The right common femoral artery was cannulated using micropuncture technique, the micropuncture wire passed easily. Then I placed a 6-Georgian sheath in the right groin. At that point, I did selective left and right coronary angiogram using JL4 and JR4 catheters. Saphenous vein graft angiogram to first and second diagonal branches was performed using a JR4 catheter. Saphenous vein graft to obtuse marginal branch was also performed using the JR4 catheter. Left internal mammary artery angiogram was performed using JR4 catheter as well. I did perform fractional flow reserve of the left circumflex coronary artery. Please see a separate paragraph for that. Subsequently I did intervene on the left circumflex. Also, please see a separate paragraph for that. SELECTIVE CORONARY ANGIOGRAM: 1. The left main is a large left main with mild disease only. The left main bifurcates into left circumflex and left anterior descending artery. 2. The left circumflex is a large caliber vessel. The proximal left circumflex has a lesion appeared to be in the range of 60% to 70%. I did fractional flow reserve of that lesion and came in to be ischemic at 0.80. The mid left circumflex appeared to be angiographically normal and the left circumflex distally appeared to be angiographically normal. 3. The left anterior descending artery: The proximal LAD appeared to have mild disease only by the bifurcation of the first septal certification engineer branch. The mid LAD appeared to have mild disease only as well and the LAD distally appeared to be angiographically normal. The LAD reached and wrapped around the apex. 4. The right coronary artery is chronically occluded by the proximal portion. It does fills by collateral from the left coronary system. CORONARY BYPASS ANGIOGRAM: 1. The saphenous vein graft to the first diag is patent and the flow also goes to the left anterior descending artery. 2. The saphenous vein graft to 2nd diagonal branch appeared to be patent as well. 3. The saphenous vein graft to obtuse marginal branch appeared to be patent as well. 4. The HOPKINS to LAD is atrophic then it is occluded in the midportion. FRACTIONAL FLOW RESERVE OF THE LEFT CIRCUMFLEX: Anticoagulation was initiated using Angiomax. Subsequently, and after zeroing the Doppler wire and equalizing between the Doppler wire and the guiding catheter which was JL4 guiding catheter, we did an FFR per IV adenosine infusion and the FFR came in to be at 0.80. PCI of the left circumflex: After we did perform the fractional flow reserve of the left circumflex which came in to be ischemic at 0.80 I decided to pursue with intervention on it. I continued anticoagulation with Angiomax. I did advance 2.5 x 12 mm balloon to the proximal left circumflex and I inflated the balloon under 14 atmospheres for 20 seconds. There was some wasting on the balloon, so I decided to prep the vessel more and try to advance a noncompliant balloon. At that point, I had a hard time advancing the noncompliant balloon to the left circumflex. Because of that, I decided to change my guide and use an extra backup support guide. At that point, I pulled the Doppler wire, which was my working wire and then I pulled my guiding catheter from the left main. I did advance an XP3 guide to the left main and the left main was engaged. I did wire the left circumflex at that point, using a run-through wire. I did advanced a 3.0 x 12 mm NC balloon to the proximal left circumflex and the balloon was inflated under 18 atmospheres for 20 seconds. After that, I advanced a 3 25 x 15 mm Xience ROJELIO where the stent was positioned under fluoroscopy guidance and deployed under 18 atmospheres for 20 seconds. The following angiogram showed that there was some on the stented segment in the midportion, so I decided to post dilate the stent using 3.5 x 12 mm NC balloon which was advanced over the run-through wire to the stented segment and the balloon was inflated for under 18 atmospheres for 20 seconds. The following angiogram showed reduction of stenosis from 70% to about 20%. At that point, I decided to stop. The procedure was completed without any complication. CONCLUSION: 1. Ongoing chest discomfort in this 69-year-old gentleman with known history of coronary artery disease and prior coronary artery bypass grafting. The cardiac enzymes were normal. No significant ST or T-wave abnormalities noted. 2. Mild disease involving the left main coronary artery. 3. Mild disease involving the left anterior descending artery. The HOPKINS to LAD is atrophic because there is no obstructive disease in the LAD. 4. Patent to saphenous vein graft to the first and second diagonal branches of the LAD. 5. Severe disease involving the proximal left circumflex coronary artery. 6. Patent saphenous vein graft to OM branch of the left circumflex. 7. Chronic total occlusion of the right coronary artery. 8. Known occluded SVG to RCA which was documented from previous heart catheterization. 9. Successful stenting of the proximal left circumflex using 3 25 x 15 mm Xience ROJELIO with good angiographic results. POSTPROCEDURE MANAGEMENT: 1. Maximize medical treatment. 2. Dual anti-platelet therapy. 3. High-intensity statin. 4. Follow up with the patient. MMODL / IJN: [id number] /
[2017-11-26] MEDS: NITROGLYCERIN OINT 1 INCH/GM PACKET TOPICAL SCH ×5 (00:27→23:47)
[2017-11-26] MEDS: RANOLAZINE 500 MG TAB.ER.12H PO SCH ×2 (08:05→21:26)
[2017-11-26] MEDS: amLODIPine 2.5 MG TAB PO SCH (08:05)
[2017-11-26] MEDS: LISINOPRIL 10 MG TAB PO SCH (08:05)
[2017-11-26] MEDS: ISOSORBIDE MONONITRATE ER 60 MG TAB.ER.24H PO SCH ×2 (08:05→21:26)
[2017-11-26] MEDS: PANTOPRAZOLE 40 MG TABLET PO SCH (08:05)
[2017-11-26] MEDS: ASPIRIN 325 MG TAB PO SCH (08:05)
[2017-11-26] MEDS: METOPROLOL TARTRATE 50 MG TAB PO SCH ×2 (08:13→21:26)
--- NOTE | 2017-11-26 09:52 | P.PN ---
Subjective Progress Note Date: 11/26/17 Principal diagnosis: Coronary artery disease This is a pleasant 52-year-old gentleman who was admitted to the hospital with chest discomfort concerning for angina. He underwent heart catheterization yesterday and revealed severe triple-vessel coronary artery disease with patent SVG to diagonal 1, patent SVG to diagonal 2, and patent SVG to OM. The HOPKINS to LAD was occluded. The SVG to RCA was occluded and known from before. The patient underwent successful stenting of the proximal left circumflex with a good angiographic results. The procedure was performed from the right groin which is soft and nontender and without any bruises. The patient denies having any chest pain or chest discomfort at this point. From a cardiovascular standpoint of view, he can be discharged home. Objective - Vital Signs Vital signs: Vital Signs Temp 98.0 F 11/26/17 08:00 Pulse 77 11/26/17 08:00 Resp 18 11/26/17 08:00 BP 117/67 11/26/17 08:00 Pulse Ox 96 11/26/17 08:00 Intake & Output 11/25/17 11/26/17 11/26/17 18:59 06:59 18:59 Intake Total 400 1022.3 1080 Balance 400 1022.3 1080 Weight 126.609 kg Intake: IV 402.3 Intake, IV Titration 500 600 Amount Sodium Chloride 0.9% 1, 500 600 000 ml @ 100 mls/hr IV . Q10H [facility] Rx#:[id number] Oral 400 120 480 Other: Voiding Method Urinal # Voids 1 1 - Constitutional General appearance: Present: no acute distress - Respiratory Respiratory: bilateral: CTA - Cardiovascular Rhythm: regular Heart sounds: normal: S1, S2 - Labs CBC & Chem 7: 11/24/17 21:07 11/26/17 05:34 Labs: Abnormal Lab Results - Last 24 Hours (Table) 11/24/17 11/25/17 11/25/17 Range/Units 21:07 09:19 12:01 Creatinine (0.66-1.25) mg/dL POC Glucose (mg/dL) 129 H (75-99) mg/dL Hemoglobin A1c 6.4 H (4.0-6.0) % Total Creatine Kinase 24 L (55-170) U/L 11/25/17 11/26/17 Range/Units 16:58 05:34 Creatinine 1.43 H (0.66-1.25) mg/dL POC Glucose (mg/dL) 107 H (75-99) mg/dL Hemoglobin A1c (4.0-6.0) % Total Creatine Kinase (55-170) U/L Assessment and Plan Assessment: Assessment #1 unstable angina #2 severe CAD as described above #3 status post a stenting of the left circumflex Plan #1 continue dual antiplatelet therapy #2 the patient can be discharged home.
[2017-11-26 11:29] LABS: Glucose,Whole Blood 109 mg/dL (75-99)
[2017-11-26] MEDS: CLOPIDOGREL 75 MG TAB PO SCH (12:28)
[2017-11-26 16:44] LABS: Glucose,Whole Blood 104 mg/dL (75-99)
--- NOTE | 2017-11-26 17:08 | P.PN ---
Subjective Progress Note Date: 11/26/17 Principal diagnosis: Chest pain Patient had received drug-eluting stent to his LAD yesterday and noted to have [id number] degree with patent graft. Patient is complaining of some irritation in the chest area as he described it and denying any shortness of breath, nausea, vomiting, abdominal pain, dizziness or lightheadedness Objective - Vital Signs Vital signs: Vital Signs Temp 97.8 F 11/26/17 15:57 Pulse 71 11/26/17 15:57 Resp 22 11/26/17 15:57 BP 114/82 11/26/17 15:57 Pulse Ox 96 11/26/17 15:57 Intake & Output 11/25/17 11/26/17 11/26/17 18:59 06:59 18:59 Intake Total 400 1022.3 1080 Balance 400 1022.3 1080 Weight 126.609 kg Intake: IV 402.3 Intake, IV Titration 500 600 Amount Sodium Chloride 0.9% 1, 500 600 000 ml @ 100 mls/hr IV . Q10H [facility] Rx#:[id number] Oral 400 120 480 Other: Voiding Method Urinal # Voids 1 2 - Exam Lungs : Clear to auscultation bilaterally Heart: Normal S1 and S2 Abdomen: Soft, no tenderness, positive bowel sounds in all 4 quadrants Skin: No new rash Psych: Alert and oriented at baseline mental status - Labs CBC & Chem 7: 11/24/17 21:07 11/26/17 05:34 Labs: Abnormal Lab Results - Last 24 Hours (Table) 11/24/17 11/25/17 11/26/17 Range/Units 21:07 16:58 05:34 Creatinine 1.43 H (0.66-1.25) mg/dL POC Glucose (mg/dL) 107 H (75-99) mg/dL Hemoglobin A1c 6.4 H (4.0-6.0) % 11/26/17 11/26/17 Range/Units 11:27 16:26 Creatinine (0.66-1.25) mg/dL POC Glucose (mg/dL) 109 H 104 H (75-99) mg/dL Hemoglobin A1c (4.0-6.0) % Assessment and Plan Assessment: 1. Status post drug-eluting stent to the LAD with current medication. 3. Coronary artery disease status post stents in the past. 4. Diabetes mellitus type 2 [id number]. 5. Hyperlipidemia. 6. Hypertension. 7. Obesity. I have discussed the case with the patient after discussion with cardiology and we would like to keep patient's 24 hours for monitoring giving his chest of irritation as he described it and monitor his vital signs closely and repeat blood work in the morning and consider discharging him Plavix if patient's continued to be hemodynamically stable over the next 24 hours without any episodes of chest pain. Will continue cardioprotective medication. Patient counseled regarding weight loss and healthy lifestyle. Patient counseled regarding adherence to medication
[2017-11-26 21:01] LABS: Glucose,Whole Blood 123 mg/dL (75-99)
[2017-11-26] MEDS: ATORVASTATIN 80 MG TAB PO SCH (21:26)
[2017-11-27] MEDS: NITROGLYCERIN OINT 1 INCH/GM PACKET TOPICAL SCH ×2 (06:03→10:42)
[2017-11-27 06:21] LABS: Glucose,Whole Blood 105 mg/dL (75-99)
[2017-11-27 07:29] LABS: Potassium 4.7 mmol/L (3.5-5.1)
[2017-11-27] MEDS: RANOLAZINE 500 MG TAB.ER.12H PO SCH (07:42)
[2017-11-27] MEDS: ASPIRIN 325 MG TAB PO SCH (07:42)
[2017-11-27] MEDS: ISOSORBIDE MONONITRATE ER 60 MG TAB.ER.24H PO SCH (07:42)
[2017-11-27] MEDS: LISINOPRIL 10 MG TAB PO SCH (07:42)
[2017-11-27] MEDS: CLOPIDOGREL 75 MG TAB PO SCH (07:42)
[2017-11-27] MEDS: amLODIPine 2.5 MG TAB PO SCH (07:43)
[2017-11-27] MEDS: METOPROLOL TARTRATE 50 MG TAB PO SCH (07:43)
[2017-11-27] MEDS: PANTOPRAZOLE 40 MG TABLET PO SCH (07:43)
[2017-11-27 07:48] VITALS: RESP 20
[2017-11-27 10:31] VITALS: BMI 39.2
--- NOTE | 2017-11-27 10:51 | P.PN ---
Subjective Progress Note Date: 11/27/17 this is a pleasant 52-year-old gentleman who follows regularly with Dr. Jorgensen in the office. He has a known history of coronary artery disease with prior bypass surgery and PCI, hypertension, hyperlipidemia, prior TIA, prior CVA, presented to the hospital with symptoms of chest discomfort. His EKG showed a normal sinus rhythm with ST-T wave changes noted in the lateral leads and for this reason he was taken to the cardiac catheterization lab by Dr. Song. Subsequently the patient underwent angioplasty and stenting of the circumflex artery. Patient was seen and examined this morning, hemodynamically stable. Right groin is soft with no evidence of any ecchymosis. EKG shows normal sinus rhythm with no changes from post-PCI.BUN 17 and creatinine 1.5. Objective - Vital Signs Vital signs: Vital Signs Temp 98.1 F 11/27/17 07:47 Pulse 76 11/27/17 07:47 Resp 20 11/27/17 07:47 BP 113/78 11/27/17 07:47 Pulse Ox 97 11/27/17 07:47 Intake & Output 11/26/17 11/27/17 11/27/17 18:59 06:59 18:59 Intake Total 1080 600 Balance 1080 600 Weight 127.7 kg 127.7 kg Intake: Intake, IV Titration 600 Amount Sodium Chloride 0.9% 1, 600 000 ml @ 100 mls/hr IV . Q10H [facility] Rx#:[id number] Oral 480 600 Other: Voiding Method Toilet # Voids 2 2 - Exam PHYSICAL EXAMINATION: GENERAL:52-year-old gentleman in no acute distress at the time of my examination HEENT: Head is atraumatic, normocephalic. Pupils equal, round. Sclera anicteric. Conjunctiva are clear. Mucous membranes of the mouth are moist. Neck is supple. There is no elevated jugular venous pressure.no carotid bruit is heard. HEART EXAMINATION: [Heart S1, S2 normal. No murmur or gallop heard.] CHEST EXAMINATION:[ Lungs are clear to auscultation and precussion. No chest wall tenderness is noted on palpation or with deep breathing.] ABDOMEN: [ Soft, nontender. Bowel sounds are heard. No organomegaly noted]. EXTREMITIES:[ 2+ peripheral pulses with no evidence of peripheral edema and no calf tenderness noted]. NEUROLOGIC [patient is awake, alert and oriented X3.] . - Labs CBC & Chem 7: 11/24/17 21:07 11/27/17 05:45 Labs: Abnormal Lab Results - Last 24 Hours (Table) 11/26/17 11/26/17 11/26/17 Range/Units 11:27 16:26 20:40 Creatinine (0.66-1.25) mg/dL Glucose (74-99) mg/dL POC Glucose (mg/dL) 109 H 104 H 123 H (75-99) mg/dL 11/27/17 11/27/17 Range/Units 05:45 06:17 Creatinine 1.51 H (0.66-1.25) mg/dL Glucose 109 H (74-99) mg/dL POC Glucose (mg/dL) 105 H (75-99) mg/dL Assessment and Plan Plan: Assessment #1 chest discomfort,status post angioplasty and stenting of the circumflex artery #2 severe underlying CAD with prior revascularization #3 status post CABG and status post PCI #4 hypertension #5 dyslipidemia #6 prior CVA Plan From cardiology standpoint, patient may be able to be discharged home today. We 'll make him a follow-up appointment to see Dr. Jorgensen in the office post discharge. Patient will be discharged home on dual antiplatelet therapyin the form of aspirin and Plavix, he'll also go home on 80 mg of Lipitor, Norvasc 5 mg daily, Imdur 60 twice a day, lisinopril 10 mg daily,Ranexa 1000 mg twice a day and sublingual nitroglycerin as needed for chest pain. DNP note has been reviewed, I agree with a documented findings and plan of care. Patient was seen and examined.
[2017-11-27 11:21] LABS: Glucose,Whole Blood 107 mg/dL (75-99)
[2017-11-27 12:19] VITALS: BP 122/74; PULSE 66; TEMP 98.2
--- NOTE | 2017-11-27 15:13 | P.DS ---
Providers Date of admission: 11/24/17 22:36 Expected date of discharge: 11/27/17 Attending physician: Jean-Pierre Grimes Consults: 11/24/17 22:35 Consult Physician Urgent Consulting Provider: Freda Jorgensen Consult Reason/Comments: chest pain Do you want consulting provider notified?: Yes 11/25/17 21:08 Consult Physician Routine Consulting Provider: [facility] Consult Reason/Comments: Post Interventional patient Do you want consulting provider notified?: Already Contacted Primary care physician: Sharron Hernández [facility] Course: This is 52 years old male with past medical history significant for coronary artery disease presents to the hospital with new onset chest pain. Patient said that the pain has been happening on and off for the last 3 days but got worse to the point where he determined to come into the emergency department. Patient described the pain as tightness located to the mediastinum radiating to his left shoulder and his neck stated similar to the neck pain and shoulder pain that he had when he had his first heart attack. Patient was diaphoretic and having nausea but denied any vomiting and denied passing out. Patient currently is pain-free complaining of some left shoulder pain see that separate from that pain and most likely is related to his osteoarthritis. Patient is tolerating diet without difficulties denying shortness breath nausea vomiting abdominal pain dizziness lightheadedness. Vision burning in urination or recent upper respiratory infection. Patient still smoke 1-2 cigars a week, drinks alcohol on occasional basis and denied recreational drug abuse. Patient stated that he has been complicated with his medication and Actos follow-up and his most recent cardiac catheterization was done in 2014 where it was stable from prior evaluation. Patient is not sure what his hemoglobin A1c at this point and believes it's fairly controlled with metformin in the emergency department EKG showed nonspecific T-wave abnormality especially in V2 no other changes noted troponin was negative 2 and patient was admitted for observation 11/26: Patient had received drug-eluting stent to his LAD yesterday and noted to have [id number] degree with patent graft. Patient is complaining of some irritation in the chest area as he described it and denying any shortness of breath, nausea, vomiting, abdominal pain, dizziness or lightheadedness I feel weird over 11/27: Patient states he has continued to have intermittent chest pain that's up to #5. Patient will be discharged home today in stable condition and follow-up with Dr. Hernández. Discharge diagnoses: 1. Status post drug-eluting stent to the LAD with current medication. 3. Coronary artery disease status post stents in the past. 4. Diabetes mellitus type 2 [id number]. 5. Hyperlipidemia. 6. Hypertension. 7. Obesity. Discharge plan: Return home Impression and plan of care have been directed as dictated by the signing physician. Karissa Moncada nurse practitioner acting as scribe for signing physician. Patient Condition at Discharge: Good Plan - Discharge Summary New Discharge Prescriptions: New Clopidogrel [Plavix] 75 mg PO DAILY #30 tab Mag Hydrox/Al Hydrox/Simeth [Maalox] 30 ml PO TID #1 bottle Continue Nitroglycerin Sl Tabs [Nitrostat] 0.4 mg SUBLINGUAL Q5M PRN PRN Reason: Chest Pain HYDROcodone/APAP 10-325MG [[place] 10-325] 1 tab PO BID PRN PRN Reason: Pain Atorvastatin [Lipitor] 80 mg PO HS Metoprolol Tartrate [Lopressor] 50 mg PO BID Ranolazine [Ranexa] 1,000 mg PO BID Pantoprazole Sodium [Protonix] 40 mg PO DAILY Isosorbide Mononitrate ER [Imdur] 60 mg PO BID Aspirin [Adult Low Dose Aspirin EC] 81 mg PO HS Meclizine [Antivert] 25 mg PO TID PRN PRN Reason: Nasal Congestion Lactulose [Cephulac] 20 gm PO BID PRN PRN Reason: Constipation amLODIPine [Norvasc] 2.5 mg PO DAILY Lisinopril [Zestril] 10 mg PO DAILY metFORMIN HCL [Glucophage] 500 mg PO BID #0 Discharge Medication List Atorvastatin [Lipitor] 80 mg PO HS 06/25/13 [History] HYDROcodone/APAP 10-325MG [[place] 10-325] 1 tab PO BID PRN 06/25/13 [History] Metoprolol Tartrate [Lopressor] 50 mg PO BID 06/25/13 [History] Nitroglycerin Sl Tabs [Nitrostat] 0.4 mg SUBLINGUAL Q5M PRN 06/25/13 [History] Ranolazine [Ranexa] 1,000 mg PO BID 09/23/13 [History] Pantoprazole Sodium [Protonix] 40 mg PO DAILY 07/02/14 [History] Isosorbide Mononitrate ER [Imdur] 60 mg PO BID 10/13/15 [History] Aspirin [Adult Low Dose Aspirin EC] 81 mg PO HS 01/11/16 [History] Meclizine [Antivert] 25 mg PO TID PRN 08/13/17 [History] Lactulose [Cephulac] 20 gm PO BID PRN 09/26/17 [History] Lisinopril [Zestril] 10 mg PO DAILY 09/26/17 [History] amLODIPine [Norvasc] 2.5 mg PO DAILY 09/26/17 [History] Clopidogrel [Plavix] 75 mg PO DAILY #30 tab 11/27/17 [Rx] Mag Hydrox/Al Hydrox/Simeth [Maalox] 30 ml PO TID #1 bottle 11/27/17 [Rx] metFORMIN HCL [Glucophage] 500 mg PO BID #0 11/27/17 [Rx] Follow up Appointment(s)/Referral(s): Freda Jorgensen MD [STAFF PHYSICIAN] - 12/05/17 4:00 pm (Monday) Sharron Hernández MD [Primary Care Provider] - 12/04/17 11:00 am (Monday with PLASTIC PRINTER) Patient Instructions/Handouts: *Surgery [facility] - After Heart Catheterization - Safety Patrol Officer Instructions, Left Heart Catheterization (DC) Activity/Diet/Wound Care/Special Instructions: Low fat diet. Discharge Disposition: HOME SELF-CARE
[2017-11-28] MEDS ORDERED: ASPIRIN 81 MG PO SCH (09:00)
--- NOTE | 2017-12-03 17:10 | CDI ---
Outpatient Documentation Clarification Form Date: 12-03-17 CDS/Health Service Coordinator Name: Elle Rowland Phone: If you have question, contact Ellie Cottrell, Mri Supervisor at M-F 8:30 am to 6pm. Patient Name: Guido Crump Observation Admit Date: 11-24-17 Discharge Date: 11-27-17 ATTENTION: The Clinical Documentation Specialists (CDI) and [facility] Coding Staff appreciate your assistance in clarifying documentation. Please respond to the clarification below the line at the bottom and electronically sign. The CDI & [facility] Coding staff will review the response and follow-up if needed. Please note: Queries are made part of the Legal Health Record. If you have any questions, please contact the author of this message via ITS or call the Mri Supervisor. Dr. Grimes, Please specify if patient's chest was Unstable Angina. Patient presented with chest pain, diaphoresis, nausea, left shoulder pain, positive cardiac history. Patient underwent cath and stent on this visit, presented to with symptoms. Please add documentation below the line: -CAD with unstable angina -CAD with chest pain -chest pain, unspecified -Other diagnosis- MTDD
== END 2017-11-27 14:52 | disposition home or self-care (01) ==
LOC: EC 20:26 → 1SOBS 22:36 → 3SCARD 11-25 21:22
PROVIDERS: ADMIT Internal Medicine; ATTEND Internal Medicine
DX: I25.720 Atherosclerosis of autologous artery coronary artery bypass graft(s) with unstable angina pectoris (principal); I25.110 Atherosclerotic heart disease of native coronary artery with unstable angina pectoris; I25.82 Chronic total occlusion of coronary artery; I24.0 Acute coronary thrombosis not resulting in myocardial infarction; E78.5 Hyperlipidemia, unspecified; I10 Essential (primary) hypertension; E66.9 Obesity, unspecified; Z68.39 Body mass index [BMI] 39.0-39.9, adult; M19.90 Unspecified osteoarthritis, unspecified site; M25.512 Pain in left shoulder; F17.290 Nicotine dependence, other tobacco product, uncomplicated; I25.2 Old myocardial infarction; G47.30 Sleep apnea, unspecified; M51.26 Other intervertebral disc displacement, lumbar region; E11.40 Type 2 diabetes mellitus with diabetic neuropathy, unspecified; Z91.81 History of falling; Z95.1 Presence of aortocoronary bypass graft; Z95.5 Presence of coronary angioplasty implant and graft; Z87.442 Personal history of urinary calculi; Z87.01 Personal history of pneumonia (recurrent); Z86.73 Personal history of transient ischemic attack (TIA), and cerebral infarction without residual deficits; Z87.440 Personal history of urinary (tract) infections; Z87.19 Personal history of other diseases of the digestive system; Z90.49 Acquired absence of other specified parts of digestive tract; Z80.1 Family history of malignant neoplasm of trachea, bronchus and lung; Z80.42 Family history of malignant neoplasm of prostate; Z79.899 Other long term (current) drug therapy; Z79.82 Long term (current) use of aspirin; Z79.84 Long term (current) use of oral hypoglycemic drugs; Z91.018 Allergy to other foods; R61 Generalized hyperhidrosis; R11.0 Nausea
CPT/HCPCS: 99285 ×2; 96376; 96374; 96375; 36415; 93005; 93571; 93455; 80061; 80053; 80048; 82565; 82550 ×2; 82553 ×2; 83690 ×2; 83735; 84484 ×2; 85025; 85610; 85730; 83036; 71046; G0378 ×5; C9600; C1887 ×2; C1769 ×3; C1725 ×3; C1894; C1874; J2250; J2405; J2001; J3010; J2270; J0583; J0153; Q9967 ×2

== ENCOUNTER 2018-07-25 07:58 | Emergency (ER) | payer MEDICARE, OTHER ==
[2018-07-25 08:03] VITALS: TEMP 97.7
--- NOTE | 2018-07-25 09:02 | XR ---
EXAMINATION TYPE: XR chest 2V DATE OF EXAM: 07/25/2018 COMPARISON: 11/24/2017 TECHNIQUE: PA and lateral views submitted. HISTORY: Cough and pain FINDINGS: The lungs are clear and there is no pneumothorax, pleural effusion, or focal pneumonia. Postsurgica l change overlying the mediastinum. No overt failure. Hypertrophic change of the spine. Biapical pleu ral thickening. IMPRESSION: 1. No acute process.
[2018-07-25 09:15] VITALS: BP 110/80; PULSE 86; RESP 16
--- NOTE | 2018-07-25 09:20 | ED ---
URI HPI - General Chief Complaint: Upper Respiratory Infection Stated Complaint: Coughing up blood Time Seen by Provider: 07/25/18 08:04 Source: patient, RN notes reviewed Mode of arrival: ambulatory Limitations: no limitations - History of Present Illness Initial Comments: This a 52-year-old male presents emergency Department chief complaint of cough c ongestion. Patient states she's been sick since Monday. Patient states she has a deep for a productive cough. Patient states that is very harsh cough. He denies any chest pain or first breath. He is a daily smoker at this time. Denies being on any blood thinners other than Plavix and aspirin. Patient denies any palpitations, nausea vomiting no fevers or chills. - Related Data Home Medications Medication Instructions Recorded Confirmed Atorvastatin [Lipitor] 80 mg PO HS 06/25/13 07/25/18 HYDROcodone/APAP 10-325MG [[place] 1 tab PO BID PRN 06/25/13 07/25/18 10-325] Metoprolol Tartrate [Lopressor] 50 mg PO BID 06/25/13 07/25/18 Nitroglycerin Sl Tabs [Nitrostat] 0.4 mg SUBLINGUAL Q5M PRN 06/25/13 07/25/18 Ranolazine [Ranexa] 1,000 mg PO BID 09/23/13 07/25/18 Pantoprazole Sodium [Protonix] 40 mg PO DAILY 07/02/14 07/25/18 Isosorbide Mononitrate ER [Imdur] 60 mg PO BID 10/13/15 07/25/18 Aspirin [Adult Low Dose Aspirin EC] 81 mg PO HS 01/11/16 07/25/18 Meclizine [Antivert] 25 mg PO TID PRN 08/13/17 07/25/18 Lactulose [Cephulac] 20 gm PO BID PRN 09/26/17 07/25/18 Lisinopril [Zestril] 10 mg PO DAILY 09/26/17 07/25/18 amLODIPine [Norvasc] 2.5 mg PO DAILY 09/26/17 07/25/18 Previous Rx's Medication Instructions Recorded metFORMIN HCL [Glucophage] 500 mg PO BID #0 11/27/17 Albuterol Sulfate [Proair Hfa] 1 - 2 puff INHALATION Q4HR PRN #1 07/25/18 inhaler Azithromycin [Zithromax Z-pack] 0 mg PO DIRECTED #1 pack 07/25/18 predniSONE 50 mg PO DAILY #5 tab 07/25/18 Allergies Allergy/AdvReac Type Severity Reaction Status Date / Time chocolate flavor Allergy Rash/Hives Verified 07/25/18 08:24 [place] And Derivatives Allergy Rash/Hives Verified 07/25/18 08:24 [[place]] Review of Systems ROS Statement: Those systems with pertinent positive or pertinent negative responses have been documented in the HPI. ROS Other: All systems not noted in ROS Statement are negative. 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 Last Myocardial Infarction Date:: 01-22-2011 History of Any Multi-Drug Resistant Organisms: None Reported Past Surgical History: Adenoidectomy, Cholecystectomy, Coronary Bypass/CABG, Heart Catheterization, Heart Catheterization With Stent, Hernia Repair Additional Past Surgical History / Comment(s): Several caths with last one done 07/02/14 treated medically, total 4 stents (states placed 01/2011), CABG 5 vessel in 2008 (stents came after open heart was done), EGD/colonoscopy, hemorrhoid banding, possible pain injections lower back, umbilical hernia repair Past Anesthesia/Blood Transfusion Reactions: Previous Problems w/ Anesthesia Additional Past Anesthesia/Blood Transfusion Reaction / Comment(s): stated "wakes up slower than normal" Date of Last Stent Placement:: 01-22-2011 Past Psychological History: Anxiety, Depression Smoking Status: Light tobacco smoker Past Alcohol Use History: Occasional Past Drug Use History: Marijuana - Past Family History Father Family Medical History: Coronary Artery Disease (CAD) Additional Family Medical History / Comment(s): dad is 75. stents, bypass, prostate and lung cancer. Mother Additional Family Medical History / Comment(s): mom 1997 at age 59- brain aneurysm General Exam Limitations: no limitations General appearance: alert, in no apparent distress Head exam: Present: atraumatic, normocephalic, normal inspection Eye exam: Present: normal appearance, PERRL, EOMI. Absent: scleral icterus, conjunctival injection, periorbital swelling ENT exam: Present: normal exam, normal oropharynx, mucous membranes moist Neck exam: Present: normal inspection, full ROM. Absent: tenderness, meningismu s, lymphadenopathy Respiratory exam: Present: wheezes (faint). Absent: normal lung sounds bilaterally, respiratory distress, rales, rhonchi, stridor Cardiovascular Exam: Present: regular rate, normal rhythm, normal heart sounds. Absent: systolic murmur, diastolic murmur, rubs, gallop, clicks GI/Abdominal exam: Present: soft, normal bowel sounds. Absent: distended, tenderness, guarding, rebound, rigid Course Vital Signs 07/25/18 07:59 Temperature 97.7 F Pulse Rate 75 Respiratory 18 Rate Blood Pressure 144/98 O2 Sat by Pulse 96 Oximetry Medical Decision Making - Medical Decision Making 52-year-old male presented for cough congestion. Patient is a daily smoker,I counseled the patient for smoking cessation for greater than 3 minutes, patient has underlying acute bronchitis from smoking. Patient has no chest pain at this time, vitals are stable. Patient we treated with azithromycin and prednisone. Patient will follow-up PCP and return for any worsening symptoms. Disposition Clinical Impression: Bronchitis Disposition: HOME SELF-CARE Condition: Stable Instructions (If sedation given, give patient instructions): Upper Respiratory Infection (ED) Additional Instructions: Please return to the Emergency Department if symptoms worsen or any other concerns. Prescriptions: predniSONE 50 mg PO DAILY #5 tab Albuterol Sulfate [Proair Hfa] 1 - 2 puff INHALATION Q4HR PRN #1 inhaler PRN Reason: difficulty in breathing Azithromycin [Zithromax Z-pack] 0 mg PO DIRECTED #1 pack Is patient prescribed a controlled substance at d/c from ED?: No Referrals: Shad Hernández MD [Primary Care Provider] - 1-2 days Time of Disposition: 09:20
== END 2018-07-25 09:32 | disposition home or self-care (01) ==
LOC: EC 07:58
DX: J20.9 Acute bronchitis, unspecified (principal); I25.119 Atherosclerotic heart disease of native coronary artery with unspecified angina pectoris; E78.5 Hyperlipidemia, unspecified; I10 Essential (primary) hypertension; I25.2 Old myocardial infarction; F17.200 Nicotine dependence, unspecified, uncomplicated; Z71.6 Tobacco abuse counseling; Z91.018 Allergy to other foods; Z79.02 Long term (current) use of antithrombotics/antiplatelets; Z79.82 Long term (current) use of aspirin; Z79.899 Other long term (current) drug therapy; Z86.73 Personal history of transient ischemic attack (TIA), and cerebral infarction without residual deficits; Z87.19 Personal history of other diseases of the digestive system; Z87.39 Personal history of other diseases of the musculoskeletal system and connective tissue; Z95.1 Presence of aortocoronary bypass graft; Z95.5 Presence of coronary angioplasty implant and graft
CPT/HCPCS: 71046; 99283; 99406

== ENCOUNTER 2018-10-15 14:13 | Observation (INO) | payer MEDICARE, OTHER ==
[2018-10-15] MEDS ORDERED: HYDROmorphone 1 MG/ML 1 ML SYRINGE IVP STA ×2 (14:29→15:57)
[2018-10-15] MEDS ORDERED: SODIUM CHLORIDE 0.9% 1,000 ML IV STA (14:29)
[2018-10-15] MEDS ORDERED: ONDANSETRON 4 MG/2 ML VIAL IVP STA ×3 (14:29→15:57)
[2018-10-15] MEDS ORDERED: PANTOPRAZOLE 40 MG/10 ML VIAL IVP STA (14:29)
--- NOTE | 2018-10-15 14:31 | ED ---
General Adult HPI - General Chief complaint: Abdominal Pain Stated complaint: Nausea Time Seen by Provider: 10/15/18 14:18 Source: patient, RN notes reviewed Mode of arrival: wheelchair Limitations: no limitations - History of Present Illness Initial comments: Patient is a pleasant 53-year-old male presenting to the emergency Department with complaints of abdominal discomfort and nausea. Onset of symptoms was a couple of days ago with abdominal discomfort. Discomfort has been slowly progressing since that time. Abdominal discomfort is mostly right lower abdomen. Discomfort is positional. Patient does have history of kidney stones however this feels somewhat different. No dysuria or hematuria. No fevers. Patient did develop nausea just about an hour prior to arrival. Nausea has been somewhat severe. Patient feels a little bit sweaty associated with the nausea. - Related Data Home Medications Medication Instructions Recorded Confirmed Atorvastatin [Lipitor] 80 mg PO HS 06/25/13 10/15/18 HYDROcodone/APAP 10-325MG [[place] 1 tab PO BID PRN 06/25/13 10/15/18 10-325] Metoprolol Tartrate [Lopressor] 50 mg PO BID 06/25/13 10/15/18 Nitroglycerin Sl Tabs [Nitrostat] 0.4 mg SUBLINGUAL Q5M PRN 06/25/13 10/15/18 Ranolazine [Ranexa] 1,000 mg PO BID 09/23/13 10/15/18 Pantoprazole Sodium [Protonix] 40 mg PO DAILY 07/02/14 10/15/18 Isosorbide Mononitrate ER [Imdur] 60 mg PO BID 10/13/15 10/15/18 Aspirin [Adult Low Dose Aspirin EC] 81 mg PO HS 01/11/16 10/15/18 Lisinopril [Zestril] 10 mg PO DAILY 09/26/17 10/15/18 amLODIPine [Norvasc] 2.5 mg PO DAILY 09/26/17 10/15/18 Clopidogrel Bisulfate [Plavix] 75 mg PO DAILY 10/15/18 10/15/18 Previous Rx's Medication Instructions Recorded metFORMIN HCL [Glucophage] 500 mg PO BID #0 11/27/17 Allergies Allergy/AdvReac Type Severity Reaction Status Date / Time chocolate flavor Allergy Rash/Hives Verified 10/15/18 14:41 [place] And Derivatives Allergy Rash/Hives Verified 10/15/18 14:41 [[place]] Review of Systems ROS Statement: Those systems with pertinent positive or pertinent negative responses have been documented in the HPI. ROS Other: All systems not noted in ROS Statement are negative. Constitutional: Denies: fever Eyes: Denies: eye pain ENT: Denies: ear pain Respiratory: Denies: cough Cardiovascular: Denies: chest pain Endocrine: Denies: fatigue Gastrointestinal: Reports: abdominal pain, nausea. 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 Last Myocardial Infarction Date:: 01-22-2011 History of Any Multi-Drug Resistant Organisms: None Reported Past Surgical History: Adenoidectomy, Cholecystectomy, Coronary Bypass/CABG, Heart Catheterization, Heart Catheterization With Stent, Hernia Repair Additional Past Surgical History / Comment(s): Several caths with last one done 07/02/14 treated medically, total 4 stents (states placed 01/2011), CABG 5 vessel in 2008 (stents came after open heart was done), EGD/colonoscopy, hemorrhoid banding, possible pain injections lower back, umbilical hernia repair Past Anesthesia/Blood Transfusion Reactions: Previous Problems w/ Anesthesia Additional Past Anesthesia/Blood Transfusion Reaction / Comment(s): stated "wakes up slower than normal" Date of Last Stent Placement:: 01-22-2011 Past Psychological History: Anxiety, Depression Smoking Status: Never smoker Past Alcohol Use History: Occasional Past Drug Use History: Marijuana - Past Family History Father Family Medical History: Coronary Artery Disease (CAD) Additional Family Medical History / Comment(s): dad is 75. stents, bypass, prostate and lung cancer. Mother Additional Family Medical History / Comment(s): mom 1997 at age 59- brain aneurysm General Exam Limitations: no limitations General appearance: alert, in no apparent distress Head exam: Present: atraumatic Eye exam: Present: normal appearance, PERRL ENT exam: Present: normal oropharynx Neck exam: Present: normal inspection Respiratory exam: Present: normal lung sounds bilaterally Cardiovascular Exam: Present: regular rate, normal rhythm Expanded Peripheral pulses: 2+: Posterior Tibialis (R), Posterior Tibialis (L) GI/Abdominal exam: Present: soft, tenderness (Mild to moderate tenderness right lower quadrant), normal bowel sounds. Absent: distended, guarding, rebound, rigid, pulsatile mass Extremities exam: Present: normal inspection Neurological exam: Present: alert Psychiatric exam: Present: normal affect, normal mood Skin exam: Present: normal color Course Vital Signs 10/15/18 10/15/18 14:14 16:45 Temperature 98.4 F Pulse Rate 68 89 Respiratory 18 16 Rate Blood Pressure 150/100 149/89 O2 Sat by Pulse 97 99 Oximetry Medical Decision Making - Medical Decision Making Patient reevaluated and still complains of nausea and discomfort. Patient updated on results. Case was discussed with Dr. Cadet who is agreeable to admission. He does request HIDA scan. - Lab Data Result diagrams: 10/15/18 14:51 10/15/18 14:51 Lab Results 10/15/18 10/15/18 10/15/18 Range/Units 14:51 14:51 14:51 WBC 6.5 (3.8-10.6) k/uL RBC 4.95 (4.30-5.90) m/uL Hgb 15.1 (13.0-17.5) gm/dL Hct 44.7 (39.0-53.0) % MCV 90.3 (80.0-100.0) fL MCH 30.6 (25.0-35.0) pg MCHC 33.9 (31.0-37.0) g/dL RDW 16.0 H (11.5-15.5) % Plt Count 230 (150-450) k/uL Neutrophils % 64 % Lymphocytes % 27 % Monocytes % 5 % Eosinophils % 2 % Basophils % 1 % Neutrophils # 4.1 (1.3-7.7) k/uL Lymphocytes # 1.8 (1.0-4.8) k/uL Monocytes # 0.3 (0-1.0) k/uL Eosinophils # 0.2 (0-0.7) k/uL Basophils # 0.0 (0-0.2) k/uL PT 10.9 (9.0-12.0) sec INR 1.0 (<1.2) APTT 24.1 (22.0-30.0) sec Sodium 139 (137-145) mmol/L Potassium 4.5 (3.5-5.1) mmol/L Chloride 106 (98-107) mmol/L Carbon Dioxide 21 L (22-30) mmol/L Anion Gap 12 mmol/L BUN 18 (9-20) mg/dL Creatinine 1.12 (0.66-1.25) mg/dL Est GFR (CKD-EPI)AfAm 87 (>60 ml/min/1.73 sqM) Est GFR (CKD-EPI)NonAf 75 (>60 ml/min/1.73 sqM) Glucose 123 H (74-99) mg/dL Calcium 9.2 (8.4-10.2) mg/dL Total Bilirubin 1.2 (0.2-1.3) mg/dL AST 28 (17-59) U/L ALT 30 (21-72) U/L Alkaline Phosphatase 91 (38-126) U/L Total Protein 6.9 (6.3-8.2) g/dL Albumin 4.0 (3.5-5.0) g/dL Amylase 52 (30-110) U/L Lipase 129 (23-300) U/L Urine Color Urine Appearance (Clear) Urine pH (5.0-8.0) Ur Specific [place] (1.001-1.035) Urine Protein (Negative) Urine Glucose (UA) (Negative) Urine Ketones (Negative) Urine Blood (Negative) Urine Nitrite (Negative) Urine Bilirubin (Negative) Urine Urobilinogen (<2.0) mg/dL Ur Leukocyte Esterase (Negative) 10/15/18 Range/Units 17:12 WBC (3.8-10.6) k/uL RBC (4.30-5.90) m/uL Hgb (13.0-17.5) gm/dL Hct (39.0-53.0) % MCV (80.0-100.0) fL MCH (25.0-35.0) pg MCHC (31.0-37.0) g/dL RDW (11.5-15.5) % Plt Count (150-450) k/uL Neutrophils % % Lymphocytes % % Monocytes % % Eosinophils % % Basophils % % Neutrophils # (1.3-7.7) k/uL Lymphocytes # (1.0-4.8) k/uL Monocytes # (0-1.0) k/uL Eosinophils # (0-0.7) k/uL Basophils # (0-0.2) k/uL PT (9.0-12.0) sec INR (<1.2) APTT (22.0-30.0) sec Sodium (137-145) mmol/L Potassium (3.5-5.1) mmol/L Chloride (98-107) mmol/L Carbon Dioxide (22-30) mmol/L Anion Gap mmol/L BUN (9-20) mg/dL Creatinine (0.66-1.25) mg/dL Est GFR (CKD-EPI)AfAm (>60 ml/min/1.73 sqM) Est GFR (CKD-EPI)NonAf (>60 ml/min/1.73 sqM) Glucose (74-99) mg/dL Calcium (8.4-10.2) mg/dL Total Bilirubin (0.2-1.3) mg/dL AST (17-59) U/L ALT (21-72) U/L Alkaline Phosphatase (38-126) U/L Total Protein (6.3-8.2) g/dL Albumin (3.5-5.0) g/dL Amylase (30-110) U/L Lipase (23-300) U/L Urine Color Yellow Urine Appearance Clear (Clear) Urine pH 5.0 (5.0-8.0) Ur Specific [place] >1.050 H (1.001-1.035) Urine Protein Negative (Negative) Urine Glucose (UA) Negative (Negative) Urine Ketones Negative (Negative) Urine Blood Negative (Negative) Urine Nitrite Negative (Negative) Urine Bilirubin Negative (Negative) Urine Urobilinogen <2.0 (<2.0) mg/dL Ur Leukocyte Esterase Negative (Negative) - Radiology Data Radiology results: report reviewed (Computed tomography scan of the abdomen and pelvis does not reveal acute abnormality.) Disposition Clinical Impression: Abdominal pain Disposition: ADMITTED IP TO THIS HOSP Is patient prescribed a controlled substance at d/c from ED?: No Referrals: Sharron Hernández MD [Primary Care Provider] - 1-2 days Decision Time: 17:35
[2018-10-15 15:05] LABS: Basophils % (A) 1 %; Eosinophils # (A) 0.2 k/uL (0-0.7); Eosinophils % (A) 2 %; HCT 44.7 % (39.0-53.0); HGB 15.1 gm/dL (13.0-17.5); Lymphocytes # (A) 1.8 k/uL (1.0-4.8); Lymphocytes % (A) 27 %; MCH 30.6 pg (25.0-35.0); MCHC 33.9 g/dL (31.0-37.0); MCV 90.3 fL (80.0-100.0); Mean Platelet Volume 6.7; Monocytes # (A) 0.3 k/uL (0-1.0); Monocytes % (A) 5 %; Neutrophils # (A) 4.1 k/uL (1.3-7.7); Neutrophils % (A) 64 %; Platelet Count 230 k/uL (150-450); RBC 4.95 m/uL (4.30-5.90); WBC 6.5 k/uL (3.8-10.6)
[2018-10-15 15:15] LABS: Calcium 9.2 mg/dL (8.4-10.2); Potassium 4.5 mmol/L (3.5-5.1); Total Bilirubin 1.2 mg/dL (0.2-1.3); Total Protein 6.9 g/dL (6.3-8.2)
[2018-10-15 15:18] LABS: Partial Thromboplastin Time 24.1 sec (22.0-30.0); Prothrombin Time 10.9 sec (9.0-12.0)
--- NOTE | 2018-10-15 15:23 | CT ---
EXAMINATION TYPE: CT abdomen pelvis w con DATE OF EXAM: 10/15/2018 COMPARISON: 08/14/2017 HISTORY: RLQ pain with nausea, vomiting and diarrhea CT DLP: 2974.4 mGycm CONTRAST: CT scan of the abdomen and pelvis is performed without Oral Contrast and with IV Contrast, patient in jected with 100 mL of Isovue 300. FINDINGS: LUNG BASES-: No visible nodule. No infiltrate. LIVER/GB: Cholecystectomy clips are in place. No space occupying hepatic lesion. Biliary tree is o f normal caliber. PANCREAS: No inflammation. No distinct mass. SPLEEN: No splenic enlargement. No lesion seen. ADRENALS: No nodule. No thickening. KIDNEYS/BLADDER: No hydronephrosis. No nephrolithiasis. Simple cyst midpole right kidney and 2.2 cm . Urinary bladder grossly unremarkable. BOWEL: Normal appendix. Normal bowel caliber. No inflammation. GENITAL ORGANS: No gross abnormality. LYMPH NODES: No greater than 1cm abdominal or pelvic lymph nodes are appreciated. AORTA: No significant abnormality. OSSEOUS STRUCTURES: No significant abnormality is seen. OTHER: No significant additional abnormality is seen. IMPRESSION: 1. No acute process identified to account for the patient's symptoms.
[2018-10-15 17:20] LABS: Appearance,Urine Clear (Clear); Bilirubin,Urine Negative (Negative); Blood,Urine Negative (Negative); Color,Urine Yellow; Glucose,Urine (UA) Negative (Negative); Ketones,Urine Negative (Negative); Leukocyte Esterase,Urine Negative (Negative); Nitrite,Urine Negative (Negative); Protein,Urine Negative (Negative); Urobilinogen,Urine <2.0 mg/dL (<2.0)
[2018-10-15 17:22] LABS: Specific Gravity,Urine >1.050 (1.001-1.035)
[2018-10-15] MEDS ORDERED: HYDROmorphone 1 MG/ML 1 ML SYRINGE IVP PRN (17:33)
[2018-10-15] MEDS ORDERED: ONDANSETRON 4 MG/2 ML VIAL IVP PRN (17:33)
[2018-10-15] MEDS ORDERED: NALOXONE 0.4 MG/ML 1 ML VIAL IV PRN (17:33)
[2018-10-15] MEDS: SODIUM CHLORIDE 0.9% 1,000 ML IV SCH (17:50)
[2018-10-15 19:47] VITALS: BMI 39.0
[2018-10-15 20:34] LABS: Glucose,Whole Blood 138 mg/dL (75-99)
[2018-10-15] MEDS ORDERED: HYDROcodone/APAP 10-325MG 1 EACH TAB PO PRN (21:00)
[2018-10-15] MEDS ORDERED: NITROGLYCERIN SL TABS 0.4 MG TAB SUBLINGUAL PRN (21:00)
[2018-10-15] MEDS: ASPIRIN 81 MG PO SCH (21:47)
[2018-10-15] MEDS: metFORMIN 500 MG TAB PO SCH (21:47)
[2018-10-15] MEDS: ATORVASTATIN 80 MG TAB PO SCH (21:47)
[2018-10-15] MEDS: ISOSORBIDE MONONITRATE ER 60 MG TAB.ER.24H PO SCH (21:47)
[2018-10-15] MEDS: RANOLAZINE 500 MG TAB.ER.12H PO SCH (21:47)
[2018-10-15] MEDS: METOPROLOL TARTRATE 50 MG TAB PO SCH (21:47)
[2018-10-15] MEDS: HYDROmorphone 0.5 MG/0.5 ML SYRINGE IVP PRN (21:55)
[2018-10-16 07:08] LABS: Glucose,Whole Blood 111 mg/dL (75-99)
[2018-10-16] MEDS: PANTOPRAZOLE 40 MG/10 ML VIAL IV SCH (07:22)
[2018-10-16] MEDS: SODIUM CHLORIDE 0.9% 1,000 ML IV SCH ×3 (07:27→15:53)
[2018-10-16 08:06] LABS: Albumin 3.3 g/dL (3.5-5.0); Calcium 8.4 mg/dL (8.4-10.2); Total Bilirubin 0.9 mg/dL (0.2-1.3)
[2018-10-16 08:10] LABS: Basophils % (A) 1 %; Eosinophils # (A) 0.1 k/uL (0-0.7); Eosinophils % (A) 2 %; HCT 40.5 % (39.0-53.0); HGB 13.6 gm/dL (13.0-17.5); Lymphocytes % (A) 37 %; MCH 30.4 pg (25.0-35.0); MCHC 33.7 g/dL (31.0-37.0); MCV 90.3 fL (80.0-100.0); Mean Platelet Volume 8.2; Monocytes # (A) 0.4 k/uL (0-1.0); Monocytes % (A) 8 %; Neutrophils # (A) 2.8 k/uL (1.3-7.7); Neutrophils % (A) 51 %; Platelet Count 200 k/uL (150-450); Potassium 4.9 mmol/L (3.5-5.1); RBC 4.49 m/uL (4.30-5.90); RDW 15.8 % (11.5-15.5); WBC 5.5 k/uL (3.8-10.6)
[2018-10-16] MEDS: RANOLAZINE 500 MG TAB.ER.12H PO SCH ×2 (10:46→21:07)
[2018-10-16] MEDS: METOPROLOL TARTRATE 50 MG TAB PO SCH ×2 (10:46→21:07)
[2018-10-16] MEDS: metFORMIN 500 MG TAB PO SCH ×2 (10:46→21:07)
[2018-10-16] MEDS: amLODIPine 2.5 MG TAB PO SCH (10:47)
[2018-10-16] MEDS: LISINOPRIL 10 MG TAB PO SCH (10:47)
[2018-10-16] MEDS: ISOSORBIDE MONONITRATE ER 60 MG TAB.ER.24H PO SCH ×2 (10:47→21:07)
[2018-10-16 11:34] LABS: Glucose,Whole Blood 147 mg/dL (75-99)
[2018-10-16] MEDS: HYDROmorphone 0.5 MG/0.5 ML SYRINGE IVP PRN (12:38)
--- NOTE | 2018-10-16 12:50 | P.CONS ---
History of Present Illness - Reason for Consult Consult date: 10/16/18 Medical management - History of Present Illness This is a 53-year-old gentleman patient of Dr. Hernández and Dr Jorgensen with history of CAD, CABG, previous CVA involving the occipital lobe,chronic tobacco use and cigar use, moderate alcohol consumption. His cardiac history are as follows:coronary artery disease multiple procedure including bypass grafting 2008 which is HOPKINS to the LAD and saphenous vein graft to the diagonal 1 saphenous vein graft to the diagonal 2 and saphenous vein graft to the obtuse marginal and right coronary artery. His last heart catheterization was in November 2017 at which time circumflex had a 60-70% lesion with fractional flow reserve of that lesion to be ischemic at 0.80. Mid left circumflex normal, left circumflex distally normal. LAD with mild disease, right coronary artery chronically occluded at the proximal portion and fills with collaterals from the left coronary system. The saphenous vein graft to the first diagonal, saphenous vein graft to the second diagonal, saphenous vein graft to the obtuse marginal were all patent. HOPKINS to LAD was atrophic and included in the midportion. Patient underwent drug-eluting stent to the proximal left circumflex. Patient complains of sudden onset of right lower quadrant pain which worsens whenever he moves. He denies any worsening with food. He also complains of nausea. This been going on for couple of days and slowly worsening. Patient also complains of mild sweating with pain. Patient came into [facility] emergency center for evaluation. Patient was afebrile, initial blood pressure 150/100, heart rate 68-89, pulse ox 97% on room air. CBC was unremarkable. Basic metabolic within normal limits except for CO2 of 21 and blood sugar 123. Creatinine 1.12. Liver function tests within normal limits. Urinalysis negative. CAT scan of the abdomen and pelvis showed no acute process. Patient was placed under the care of Dr. Cadet and consult was placed for internal medicine for medical management. Review of Systems Constitutional: Reports sweats, Denies chills, Denies fatigue, Denies fever, Denies lethargy, Denies malaise, Denies poor appetite, Denies weight loss Eyes: denies blurred vision, denies pain Ears, nose, mouth and throat: Denies headache, Denies nasal congestion, Denies nasal discharge, Denies sore throat, Denies vertigo Cardiovascular: Denies chest pain, Denies decreased exercise tolerance, Denies dyspnea on exertion, Denies edema, Denies leg edema, Denies shortness of breath, Denies syncope Respiratory: Denies cough, Denies cough with sputum, Denies dyspnea, Denies excessive sputum, Denies hemoptysis, Denies home oxygen, Denies wheezing Gastrointestinal: Reports abdominal pain, Reports nausea, Denies diarrhea, Denies vomiting Genitourinary: Denies dysuria, Denies urinary retention Musculoskeletal: Denies frequent falls, Denies gait dysfunction, Denies muscle weakness, Denies myalgias Integumentary: Denies pruritus, Denies rash, Denies wounds Neurological: Denies change in mentation, Denies change in speech, Denies gait dysfunction, Denies numbness, Denies seizures, Denies weakness Psychiatric: Denies anxiety, Denies depression Endocrine: Denies fatigue, Denies weight change Past Medical History Past Medical History: Coronary Artery Disease (CAD), Chest Pain / Angina, CVA/TIA, Diabetes Mellitus, GI Bleed, Hyperlipidemia, Hypertension, Myocardial Infarction ([place]), Pneumonia Additional Past Medical History / Comment(s): 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 Last Myocardial Infarction Date:: 01-22-2011 History of Any Multi-Drug Resistant Organisms: None Reported Past Surgical History: Adenoidectomy, Cholecystectomy, Coronary Bypass/CABG, Heart Catheterization, Heart Catheterization With Stent, Hernia Repair Additional Past Surgical History / Comment(s): Several caths with last one done 11/23 treated medically, total 4 stents (states placed 01/2011), CABG 5 vessel in 2008 (stents came after open heart was done), EGD/colonoscopy, hemorrhoid banding, umbilical hernia repair Past Anesthesia/Blood Transfusion Reactions: Previous Problems w/ Anesthesia Additional Past Anesthesia/Blood Transfusion Reaction / Comm: stated "wakes up slower than normal" Date of Last Stent Placement:: 11/2017 Past Psychological History: Anxiety, Depression Additional Psychological History / Comment(s): Pt states he has no current mental health disease. He states he had suicidal thoughts yrs ago at age 43, immediately following CABG in 2008 due to drastic lifestyle changes and being told he could no longer work. Patient currently lives with brother and niece. lives with brother and neice, does not work Smoking Status: Former smoker Past Alcohol Use History: Occasional Additional Past Alcohol Use History / Comment(s): started smoking age 15 never more than 1/2 ppd and later in life took up cigars (one per week at most). one cigar and glass of scotch/week Past Drug Use History: Marijuana Additional Drug Use History / Comment(s): as teenager into 20's occ, "seldom marijuana" - Past Family History Father Family Medical History: Coronary Artery Disease (CAD) Additional Family Medical History / Comment(s): dad is 75. stents, bypass, prostate and lung cancer. Mother Additional Family Medical History / Comment(s): mom 1997 at age 59- brain aneurysm Medications and Allergies Home Medications Medication Instructions Recorded Confirmed Type Atorvastatin [Lipitor] 80 mg PO HS 06/25/13 10/15/18 History HYDROcodone/APAP 10-325MG [[place] 1 tab PO BID PRN 06/25/13 10/15/18 History 10-325] Metoprolol Tartrate [Lopressor] 50 mg PO BID 06/25/13 10/15/18 History Nitroglycerin Sl Tabs [Nitrostat] 0.4 mg SUBLINGUAL Q5M PRN 06/25/13 10/15/18 History Ranolazine [Ranexa] 1,000 mg PO BID 09/23/13 10/15/18 History Pantoprazole Sodium [Protonix] 40 mg PO DAILY 07/02/14 10/15/18 History Isosorbide Mononitrate ER [Imdur] 60 mg PO BID 10/13/15 10/15/18 History Aspirin [Adult Low Dose Aspirin EC] 81 mg PO HS 01/11/16 10/15/18 History Lisinopril [Zestril] 10 mg PO DAILY 09/26/17 10/15/18 History amLODIPine [Norvasc] 2.5 mg PO DAILY 09/26/17 10/15/18 History metFORMIN HCL [Glucophage] 500 mg PO BID #0 11/27/17 10/15/18 Rx Clopidogrel Bisulfate [Plavix] 75 mg PO DAILY 10/15/18 10/15/18 History Allergies Allergy/AdvReac Type Severity Reaction Status Date / Time chocolate flavor Allergy Rash/Hives Verified 10/15/18 14:41 [place] And Derivatives Allergy Rash/Hives Verified 10/15/18 14:41 [[place]] Physical Exam Vitals: Vital Signs Temp Pulse Pulse Resp BP BP Pulse Ox 10/16/18 04:52 97.6 F 66 18 112/68 96 10/15/18 20:48 97.5 F L 69 18 128/86 94 L 10/15/18 17:51 83 16 121/74 99 10/15/18 16:45 89 16 149/89 99 10/15/18 14:14 98.4 F 68 18 150/100 97 Intake and Output 10/15/18 10/16/18 10/16/18 22:59 06:59 14:59 Intake Total 325 1040 Balance 325 1040 Intake: Intake, IV Titration 325 1040 Amount Sodium Chloride 0.9% 1, 325 1040 000 ml @ 130 mls/hr IV . Q7H42M [facility] Rx#:[id number] Other: Voiding Method Toilet Toilet # Voids 1 General appearance: cooperative, no acute distress, morbidly obese - EENT Eyes: anicteric sclerae, PERRLA, normal appearance ENT: hearing grossly normal - Neck Neck: no lymphadenopathy, normal ROM, no other, no rigidity, no stridor, no thyromegaly - Respiratory Respiratory: bilateral: CTA, negative: diminished, dullness, rales, rhonchi - Cardiovascular Rhythm: regular Heart sounds: normal: S1, S2 Abnormal Heart Sounds: no systolic murmur, no diastolic murmur, no rub, no S3 Gallop, no S4 Gallop, no click, no other - Gastrointestinal General gastrointestinal: normal bowel sounds, soft, tender in the right lower quadrant - Integumentary Integumentary: no rash - Neurologic Neurologic: CNII-XII intact - Musculoskeletal Musculoskeletal: gait normal, strength equal bilaterally - Psychiatric Psychiatric: A&O x's 3, appropriate affect Results CBC & Chem 7: 10/16/18 06:43 10/16/18 06:43 Labs: Abnormal Lab Results - Last 24 Hours (Table) 10/15/18 10/15/18 10/15/18 Range/Units 14:51 14:51 17:12 RDW 16.0 H (11.5-15.5) % Chloride (98-107) mmol/L Carbon Dioxide 21 L (22-30) mmol/L Glucose 123 H (74-99) mg/dL POC Glucose (mg/dL) (75-99) mg/dL Total Protein (6.3-8.2) g/dL Albumin (3.5-5.0) g/dL Ur Specific [place] >1.050 H (1.001-1.035) 10/15/18 10/16/18 10/16/18 Range/Units 20:22 06:43 06:43 RDW 15.8 H (11.5-15.5) % Chloride 111 H (98-107) mmol/L Carbon Dioxide 20 L (22-30) mmol/L Glucose 110 H (74-99) mg/dL POC Glucose (mg/dL) 138 H (75-99) mg/dL Total Protein 6.0 L (6.3-8.2) g/dL Albumin 3.3 L (3.5-5.0) g/dL Ur Specific [place] (1.001-1.035) 10/16/18 Range/Units 07:07 RDW (11.5-15.5) % Chloride (98-107) mmol/L Carbon Dioxide (22-30) mmol/L Glucose (74-99) mg/dL POC Glucose (mg/dL) 111 H (75-99) mg/dL Total Protein (6.3-8.2) g/dL Albumin (3.5-5.0) g/dL Ur Specific [place] (1.001-1.035) Assessment and Plan Plan: 1. Right-sided abdominal pain of unclear etiology. All testing has been negative. This could be related to abdominal angina. Patient has been instructed to take nitroglycerin when pain is severe during the next episode. 2. Diabetes mellitus type 2. Continue metformin 500 mg twice daily. 3. CAD with prior bypass surgery and cardiac stents, with recurrent angina. Continue metoprolol at 50 mg by mouth twice a day, aspirin 81 mg daily, atorvastatin 80 mg at bedtime, Lopressor 50 mg twice daily, Imdur 60 mg twice daily, Ranexa 1000 mg twice daily. 4. COPD without exacerbation will use albuterol when necessary 5. CKD stage II, nephrotoxins will be avoided, hypotension would be avoided, labs will be monitored 6. Ischemic cardiomyopathy with angina: With multiple coronary artery disease, he is currently on Ranexa Imdur. 7. Hypertension: metoprolol 50 mg twice a day, lisinopril 10 mg daily, Norvasc 2.5 mg daily. 8. Hyperlipidemia: On atorvastatin 80 mg daily. 9. Recurrent gastritis and GERD: Protonix 40 mg daily. 10. Chronic tobacco use. Smoking cessation 11. GI prophylaxis: Has been on Protonix continue medication. 12. Morbid obesity with BMI of 39.7. CODE STATUS full code Discharge plan: return home Patient will be placed on the observation unit. Impression and plan of care have been directed as dictated by the signing physician. Karissa Moncada nurse practitioner acting as scribe for signing physician.
--- NOTE | 2018-10-16 13:12 | P.GSHP ---
History of Present Illness H&P Date: 10/16/18 Chief Complaint: abdominal pain CHIEF COMPLAINT: abdominal pain HISTORY OF PRESENT ILLNESS: 53-year-old male who presented to hospital with a chief complaint of right lower quadrant abdominal pain and nausea. He reports his symptoms started on Monday and has been persistent since that time. He states the pain is worse with activity and movement. He denies any episodes of emesis. Denies diarrhea. He reports having a bowel movement every 3 days which has been his baseline for years. He does not feel constipated. Denies fever or chills at home. he reports history of cholecystectomy. He also reports history of EGD and colonoscopy a few years ago which he reports as normal. PAST MEDICAL HISTORY: See list. PAST SURGICAL HISTORY: See list. SOCIAL HISTORY: No illicit drug use. REVIEW OF SYSTEMS: CONSTITUTIONAL: Denies fever or chills. HEENT: Denies blurred vision, vision changes, or eye pain. Denies hemoptysis CARDIOVASCULAR: Denies chest pain or pressure. RESPIRATORY: No shortness of breath. GASTROINTESTINAL: Refer to [facility] for pertinent findings HEMATOLOGIC: Denies bleeding disorders. GENITOURINARY: Denies any blood in urine. SKIN: Denies pruitis. Denies rash. PHYSICAL EXAM: VITAL SIGNS: Reviewed. GENERAL: Well-developed in no acute distress. HEENT: No sclera icterus. Extraocular movements grossly intact. Moist buccal mucosa. Head is atraumatic, normocephalic. ABDOMEN: Soft. Nondistended. Mild tenderness with palpation to right lower quadrant NEUROLOGIC: Alert and oriented. Cranial nerves II through XII grossly intact. LABORATORY DATA: WBC 5.5. Hemoglobin 13.6. IMAGING: CT scan abdomen and pelvis: Negative for acute process. ASSESSMENT: 1. Abdominal pain and nausea x 3 days, clinically improving per patient, WBC within normal limits, CT negative PLAN: Case discussed with Dr. Hernández who believes his pain may be secondary to abdominal angina due to atherosclerosis. Dr. Cadet evaluated patient at the bedside. No surgical intervention per Dr. Cadet. Recommend clear liquid diet. Patient refusing discharge today and would like to stay until tomorrow. Okay to hold discharge per Dr. Cadet. Will re-evaluate patient tomorrow for discharge. Nurse practitioner note has been reviewed by physician. Signing provider agrees with the documented findings, assessment, and plan of care. 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 Last Myocardial Infarction Date:: 01-22-2011 History of Any Multi-Drug Resistant Organisms: None Reported Past Surgical History: Adenoidectomy, Cholecystectomy, Coronary Bypass/CABG, Heart Catheterization, Heart Catheterization With Stent, Hernia Repair Additional Past Surgical History / Comment(s): Several caths with last one done 11/23 treated medically, total 4 stents (states placed 01/2011), CABG 5 vessel in 2008 (stents came after open heart was done), EGD/colonoscopy, hemorrhoid banding, umbilical hernia repair Past Anesthesia/Blood Transfusion Reactions: Previous Problems w/ Anesthesia Additional Past Anesthesia/Blood Transfusion Reaction / Comment(s): stated "wakes up slower than normal" Date of Last Stent Placement:: 11/2017 Past Psychological History: Anxiety, Depression Additional Psychological History / Comment(s): Pt states he has no current mental health disease. He states he had suicidal thoughts yrs ago at age 43, immediately following CABG in 2008 due to drastic lifestyle changes and being told he could no longer work. Patient currently lives with brother and niece. lives with brother and neice, does not work Smoking Status: Former smoker Past Alcohol Use History: Occasional Additional Past Alcohol Use History / Comment(s): started smoking age 15 never more than 1/2 ppd and later in life took up cigars (one per week at most). one cigar and glass of scotch/week Past Drug Use History: Marijuana Additional Drug Use History / Comment(s): as teenager into 20's occ, "seldom marijuana" - Past Family History Father Family Medical History: Coronary Artery Disease (CAD) Additional Family Medical History / Comment(s): dad is 75. stents, bypass, prostate and lung cancer. Mother Additional Family Medical History / Comment(s): mom 1997 at age 59- brain aneurysm Medications and Allergies Home Medications Medication Instructions Recorded Confirmed Type Atorvastatin [Lipitor] 80 mg PO HS 06/25/13 10/15/18 History HYDROcodone/APAP 10-325MG [[place] 1 tab PO BID PRN 06/25/13 10/15/18 History 10-325] Metoprolol Tartrate [Lopressor] 50 mg PO BID 06/25/13 10/15/18 History Nitroglycerin Sl Tabs [Nitrostat] 0.4 mg SUBLINGUAL Q5M PRN 06/25/13 10/15/18 History Ranolazine [Ranexa] 1,000 mg PO BID 09/23/13 10/15/18 History Pantoprazole Sodium [Protonix] 40 mg PO DAILY 07/02/14 10/15/18 History Isosorbide Mononitrate ER [Imdur] 60 mg PO BID 10/13/15 10/15/18 History Aspirin [Adult Low Dose Aspirin EC] 81 mg PO HS 01/11/16 10/15/18 History Lisinopril [Zestril] 10 mg PO DAILY 09/26/17 10/15/18 History amLODIPine [Norvasc] 2.5 mg PO DAILY 09/26/17 10/15/18 History metFORMIN HCL [Glucophage] 500 mg PO BID #0 11/27/17 10/15/18 Rx Clopidogrel Bisulfate [Plavix] 75 mg PO DAILY 10/15/18 10/15/18 History Allergies Allergy/AdvReac Type Severity Reaction Status Date / Time chocolate flavor Allergy Rash/Hives Verified 10/15/18 14:41 [place] And Derivatives Allergy Rash/Hives Verified 10/15/18 14:41 [[place]] Surgical - Exam Vital Signs Temp Pulse Resp BP Pulse Ox 98.4 F 68 18 150/100 97 10/15/18 14:14 10/15/18 14:14 10/15/18 14:14 10/15/18 14:14 10/15/18 14:14 Results - Labs 10/16/18 06:43 10/16/18 06:43 Abnormal Lab Results - Last 24 Hours (Table) 10/15/18 10/15/18 10/15/18 Range/Units 14:51 14:51 17:12 RDW 16.0 H (11.5-15.5) % Chloride (98-107) mmol/L Carbon Dioxide 21 L (22-30) mmol/L Glucose 123 H (74-99) mg/dL POC Glucose (mg/dL) (75-99) mg/dL Total Protein (6.3-8.2) g/dL Albumin (3.5-5.0) g/dL Ur Specific [place] >1.050 H (1.001-1.035) 10/15/18 10/16/18 10/16/18 Range/Units 20:22 06:43 06:43 RDW 15.8 H (11.5-15.5) % Chloride 111 H (98-107) mmol/L Carbon Dioxide 20 L (22-30) mmol/L Glucose 110 H (74-99) mg/dL POC Glucose (mg/dL) 138 H (75-99) mg/dL Total Protein 6.0 L (6.3-8.2) g/dL Albumin 3.3 L (3.5-5.0) g/dL Ur Specific [place] (1.001-1.035) 10/16/18 10/16/18 Range/Units 07:07 11:33 RDW (11.5-15.5) % Chloride (98-107) mmol/L Carbon Dioxide (22-30) mmol/L Glucose (74-99) mg/dL POC Glucose (mg/dL) 111 H 147 H (75-99) mg/dL Total Protein (6.3-8.2) g/dL Albumin (3.5-5.0) g/dL Ur Specific [place] (1.001-1.035) Diabetes panel 10/15/18 10/16/18 Range/Units 14:51 06:43 Sodium 139 141 (137-145) mmol/L Potassium 4.5 4.9 (3.5-5.1) mmol/L Chloride 106 111 H (98-107) mmol/L Carbon Dioxide 21 L 20 L (22-30) mmol/L BUN 18 16 (9-20) mg/dL Creatinine 1.12 1.12 (0.66-1.25) mg/dL Glucose 123 H 110 H (74-99) mg/dL Calcium 9.2 8.4 (8.4-10.2) mg/dL AST 28 31 (17-59) U/L ALT 30 32 (21-72) U/L Alkaline Phosphatase 91 62 (38-126) U/L Total Protein 6.9 6.0 L (6.3-8.2) g/dL Albumin 4.0 3.3 L (3.5-5.0) g/dL Calcium panel 10/15/18 10/16/18 Range/Units 14:51 06:43 Calcium 9.2 8.4 (8.4-10.2) mg/dL Albumin 4.0 3.3 L (3.5-5.0) g/dL Pituitary panel 10/15/18 10/16/18 Range/Units 14:51 06:43 Sodium 139 141 (137-145) mmol/L Potassium 4.5 4.9 (3.5-5.1) mmol/L Chloride 106 111 H (98-107) mmol/L Carbon Dioxide 21 L 20 L (22-30) mmol/L BUN 18 16 (9-20) mg/dL Creatinine 1.12 1.12 (0.66-1.25) mg/dL Glucose 123 H 110 H (74-99) mg/dL Calcium 9.2 8.4 (8.4-10.2) mg/dL Adrenal panel 10/15/18 10/16/18 Range/Units 14:51 06:43 Sodium 139 141 (137-145) mmol/L Potassium 4.5 4.9 (3.5-5.1) mmol/L Chloride 106 111 H (98-107) mmol/L Carbon Dioxide 21 L 20 L (22-30) mmol/L BUN 18 16 (9-20) mg/dL Creatinine 1.12 1.12 (0.66-1.25) mg/dL Glucose 123 H 110 H (74-99) mg/dL Calcium 9.2 8.4 (8.4-10.2) mg/dL Total Bilirubin 1.2 0.9 (0.2-1.3) mg/dL AST 28 31 (17-59) U/L ALT 30 32 (21-72) U/L Alkaline Phosphatase 91 62 (38-126) U/L Total Protein 6.9 6.0 L (6.3-8.2) g/dL Albumin 4.0 3.3 L (3.5-5.0) g/dL
[2018-10-16] MEDS ORDERED: ACETAMINOPHEN TAB 325 MG TAB PO PRN (13:55)
[2018-10-16 17:05] LABS: Glucose,Whole Blood 77 mg/dL (75-99)
[2018-10-16 20:28] LABS: Glucose,Whole Blood 98 mg/dL (75-99)
[2018-10-16] MEDS: ATORVASTATIN 80 MG TAB PO SCH (21:07)
[2018-10-16] MEDS: ASPIRIN 81 MG PO SCH (21:07)
[2018-10-17] MEDS: SODIUM CHLORIDE 0.9% 1,000 ML IV SCH ×2 (05:40→07:48)
[2018-10-17 06:54] LABS: Glucose,Whole Blood 101 mg/dL (75-99)
[2018-10-17] MEDS: RANOLAZINE 500 MG TAB.ER.12H PO SCH (07:45)
[2018-10-17] MEDS: amLODIPine 2.5 MG TAB PO SCH (07:45)
[2018-10-17] MEDS: METOPROLOL TARTRATE 50 MG TAB PO SCH (07:45)
[2018-10-17] MEDS: metFORMIN 500 MG TAB PO SCH (07:45)
[2018-10-17] MEDS: ISOSORBIDE MONONITRATE ER 60 MG TAB.ER.24H PO SCH (07:46)
[2018-10-17] MEDS: PANTOPRAZOLE 40 MG/10 ML VIAL IV SCH (07:46)
[2018-10-17] MEDS: LISINOPRIL 10 MG TAB PO SCH (07:46)
[2018-10-17 11:11] LABS: Glucose,Whole Blood 162 mg/dL (75-99)
[2018-10-17 12:00] VITALS: BP 151/99; PULSE 63; RESP 17; TEMP 97.7
--- NOTE | 2018-10-17 12:27 | P.DS ---
Providers Date of admission: 10/15/18 17:33 Expected date of discharge: 10/17/18 Attending physician: Ramo Cadet Consults: 10/15/18 20:28 Consult Physician Routine Consulting Provider: Sharron Hernández Consult Reason/Comments: Medical Management Do you want consulting provider notified?: Yes Primary care physician: Sharron Hernández Hospital Course: 53-year-old male who presented to hospital with a chief complaint of right lower quadrant abdominal pain and nausea. He reports his symptoms started on Monday and has been persistent since that time. He states the pain is worse with activity and movement. He denies any episodes of emesis. Denies diarrhea. He reports having a bowel movement every 3 days which has been his baseline for years. He does not feel constipated. Denies fever or chills at home. he reports history of cholecystectomy. He also reports history of EGD and colonoscopy a few years ago which he reports as normal. Patient underwent CT scan which was negative for acute process. WBC normal at admission. Vital signs have been stable. Afebrile. Case discussed with Dr. Hernández who believes his pain may be secondary to abdominal angina due to ather osclerosis. Patient was instructed by Dr. Berrios to take Nitro when he is having abdominal discomfort. Patient examined this morning. He is sitting at the side of the bed. He reports mild abdominal pain. Tolerating regular diet. Denies nausea or vomiting. Passing flatus. He is stable for discharge home today per Dr. Cadet. Please see EMR for further hospital course details. Discharge Diagnosis: 1. Abdominal pain and nausea x 3 days, clinically improving per patient, WBC within normal limits, CT negative Nurse practitioner note has been reviewed by physician. Signing provider agrees with the documented findings, assessment, and plan of care. Plan - Discharge Summary Discharge Rx Participant: No New Discharge Prescriptions: Continue Nitroglycerin Sl Tabs [Nitrostat] 0.4 mg SUBLINGUAL Q5M PRN PRN Reason: Chest Pain HYDROcodone/APAP 10-325MG [[place] 10-325] 1 tab PO BID PRN PRN Reason: Pain Atorvastatin [Lipitor] 80 mg PO HS Metoprolol Tartrate [Lopressor] 50 mg PO BID Ranolazine [Ranexa] 1,000 mg PO BID Pantoprazole Sodium [Protonix] 40 mg PO DAILY Isosorbide Mononitrate ER [Imdur] 60 mg PO BID Aspirin [Adult Low Dose Aspirin EC] 81 mg PO HS amLODIPine [Norvasc] 2.5 mg PO DAILY Lisinopril [Zestril] 10 mg PO DAILY metFORMIN HCL [Glucophage] 500 mg PO BID #0 Clopidogrel Bisulfate [Plavix] 75 mg PO DAILY Discharge Medication List Atorvastatin [Lipitor] 80 mg PO HS 06/25/13 [History] HYDROcodone/APAP 10-325MG [[place] 10-325] 1 tab PO BID PRN 06/25/13 [History] Metoprolol Tartrate [Lopressor] 50 mg PO BID 06/25/13 [History] Nitroglycerin Sl Tabs [Nitrostat] 0.4 mg SUBLINGUAL Q5M PRN 06/25/13 [History] Ranolazine [Ranexa] 1,000 mg PO BID 09/23/13 [History] Pantoprazole Sodium [Protonix] 40 mg PO DAILY 07/02/14 [History] Isosorbide Mononitrate ER [Imdur] 60 mg PO BID 10/13/15 [History] Aspirin [Adult Low Dose Aspirin EC] 81 mg PO HS 01/11/16 [History] Lisinopril [Zestril] 10 mg PO DAILY 09/26/17 [History] amLODIPine [Norvasc] 2.5 mg PO DAILY 09/26/17 [History] metFORMIN HCL [Glucophage] 500 mg PO BID #0 11/27/17 [Rx] Clopidogrel Bisulfate [Plavix] 75 mg PO DAILY 10/15/18 [History] Follow up Appointment(s)/Referral(s): Sharron Hernández MD [Primary Care Provider] - 10/30/18 4:15 pm Ramo Cadet MD [STAFF PHYSICIAN] - As Needed Patient Instructions/Handouts: Angina (DC), Abdominal Pain (ED)
--- NOTE | 2018-10-17 13:05 | P.PN ---
Subjective Progress Note Date: 10/17/18 This is a 53-year-old gentleman patient of Dr. Hernández and Dr Jorgensen with history of CAD, CABG, previous CVA involving the occipital lobe,chronic tobacco use and cigar use, moderate alcohol consumption. His cardiac history are as follows:coronary artery disease multiple procedure including bypass grafting 2008 which is HOPKINS to the LAD and saphenous vein graft to the diagonal 1 saphenous vein graft to the diagonal 2 and saphenous vein graft to the obtuse marginal and right coronary artery. His last heart catheterization was in November 2017 at which time circumflex had a 60-70% lesion with fractional flow reserve of that lesion to be ischemic at 0.80. Mid left circumflex normal, left circumflex distally normal. LAD with mild disease, right coronary artery chronically occluded at the proximal portion and fills with collaterals from the left coronary system. The saphenous vein graft to the first diagonal, saphenous vein graft to the second diagonal, saphenous vein graft to the obtuse marginal were all patent. HOPKINS to LAD was atrophic and included in the midportion. Patient underwent drug-eluting stent to the proximal left circumflex. Patient complains of sudden onset of right lower quadrant pain which worsens whenever he moves. He denies any worsening with food. He also complains of nausea. This been going on for couple of days and slowly worsening. Patient also complains of mild sweating with pain. Patient came into [facility] emergency center for evaluation. Patient was afebrile, initial blood pressure 150/100, heart rate 68-89, pulse ox 97% on room air. CBC was unremarkable. Basic metabolic within normal limits except for CO2 of 21 and blood sugar 123. Creatinine 1.12. Liver function tests within normal limits. Urinalysis negative. CAT scan of the abdomen and pelvis showed no acute process. Patient was placed under the care of Dr. Cadet and consult was placed for internal medicine for medical management. 10/17: Patient is tolerating regular diet. No nausea or vomiting. He is passing gas. He complains of some right lower abdominal discomfort. No acute findings on exam. Patient has been cleared medically for discharge. Review of Systems Constitutional: Reports sweats, Denies chills, Denies fatigue, Denies fever, Denies lethargy, Denies malaise, Denies poor appetite, Denies weight loss Eyes: denies blurred vision, denies pain Ears, nose, mouth and throat: Denies headache, Denies nasal congestion, Denies nasal discharge, Denies sore throat, Denies vertigo Cardiovascular: Denies chest pain, Denies decreased exercise tolerance, Denies dyspnea on exertion, Denies edema, Denies leg edema, Denies shortness of breath, Denies syncope Respiratory: Denies cough, Denies cough with sputum, Denies dyspnea, Denies excessive sputum, Denies hemoptysis, Denies home oxygen, Denies wheezing Gastrointestinal: Reports abdominal pain, denies nausea, Denies diarrhea, Denies vomiting Genitourinary: Denies dysuria, Denies urinary retention Musculoskeletal: Denies frequent falls, Denies gait dysfunction, Denies muscle weakness, Denies myalgias Integumentary: Denies pruritus, Denies rash, Denies wounds Neurological: Denies change in mentation, Denies change in speech, Denies gait dysfunction, Denies numbness, Denies seizures, Denies weakness Psychiatric: Denies anxiety, Denies depression Endocrine: Denies fatigue, Denies weight change Objective - Vital Signs Vital signs: Vital Signs Temp 98 F 10/17/18 04:52 Pulse 71 10/17/18 04:52 Resp 18 10/17/18 04:52 BP 125/86 10/17/18 04:52 Pulse Ox 93 L 10/17/18 04:52 Intake & Output 10/16/18 10/17/18 10/17/18 18:59 06:59 18:59 Intake Total 1560 1495 Balance 1560 1495 Intake: Intake, IV Titration 1560 1495 Amount Sodium Chloride 0.9% 1, 1560 1495 000 ml @ 130 mls/hr IV . [id number] [facility], [facility] Rx#:[id number] Other: Voiding Method Toilet Toilet # Voids 1 1 - Exam General appearance: cooperative, no acute distress, morbidly obese, sitting on the edge of the bed - EENT Eyes: anicteric sclerae, PERRLA, normal appearance ENT: hearing grossly normal - Neck Neck: no lymphadenopathy, normal ROM, no other, no rigidity, no stridor, no thyromegaly - Respiratory Respiratory: bilateral: CTA, negative: diminished, dullness, rales, rhonchi - Cardiovascular Rhythm: regular Heart sounds: normal: S1, S2 Abnormal Heart Sounds: no systolic murmur, no diastolic murmur, no rub, no S3 Gallop, no S4 Gallop, no click, no other - Gastrointestinal General gastrointestinal: normal bowel sounds, soft, tender in the right lower quadrant - Integumentary Integumentary: no rash - Neurologic Neurologic: CNII-XII intact - Musculoskeletal Musculoskeletal: gait normal, strength equal bilaterally - Psychiatric Psychiatric: A&O x's 3, appropriate affect - Labs CBC & Chem 7: 10/16/18 06:43 10/16/18 06:43 Labs: Abnormal Lab Results - Last 24 Hours (Table) 10/16/18 10/17/18 Range/Units 11:33 06:53 POC Glucose (mg/dL) 147 H 101 H (75-99) mg/dL Assessment and Plan Plan: 1. Right-sided abdominal pain of unclear etiology. All testing has been negative. This could be related to abdominal angina. Patient has been instructed to take nitroglycerin when pain is severe during the next episode. Patient is medically clear for discharge. 2. Diabetes mellitus type 2. Continue metformin 500 mg twice daily. 3. CAD with prior bypass surgery and cardiac stents, with recurrent angina. Continue metoprolol at 50 mg by mouth twice a day, aspirin 81 mg daily, atorvastatin 80 mg at bedtime, Lopressor 50 mg twice daily, Imdur 60 mg twice daily, Ranexa 1000 mg twice daily. 4. COPD without exacerbation will use albuterol when necessary 5. CKD stage II, nephrotoxins will be avoided, hypotension would be avoided, labs will be monitored 6. Ischemic cardiomyopathy with angina: With multiple coronary artery disease, he is currently on Ranexa Imdur. 7. Hypertension: metoprolol 50 mg twice a day, lisinopril 10 mg daily, Norvasc 2.5 mg daily. 8. Hyperlipidemia: On atorvastatin 80 mg daily. 9. Recurrent gastritis and GERD: Protonix 40 mg daily. 10. Chronic tobacco use. Smoking cessation 11. GI prophylaxis: Has been on Protonix continue medication. 12. Morbid obesity with BMI of 39.7. CODE STATUS full code Discharge plan: return home Impression and plan of care have been directed as dictated by the signing physician. Karissa Moncada nurse practitioner acting as scribe for signing physician.
== END 2018-10-17 16:15 | disposition home or self-care (01) ==
LOC: EC 14:13 → 3NMEDONC 17:33
PROVIDERS: ADMIT Surgery; ATTEND Surgery
DX: R10.31 Right lower quadrant pain (principal); R11.0 Nausea; E11.42 Type 2 diabetes mellitus with diabetic polyneuropathy; I25.119 Atherosclerotic heart disease of native coronary artery with unspecified angina pectoris; E78.5 Hyperlipidemia, unspecified; I12.9 Hypertensive chronic kidney disease with stage 1 through stage 4 chronic kidney disease, or unspecified chronic kidney disease; E11.22 Type 2 diabetes mellitus with diabetic chronic kidney disease; N18.2 Chronic kidney disease, stage 2 (mild); I25.5 Ischemic cardiomyopathy; J44.9 Chronic obstructive pulmonary disease, unspecified; E55.9 Vitamin D deficiency, unspecified; G47.30 Sleep apnea, unspecified; G43.909 Migraine, unspecified, not intractable, without status migrainosus; M51.26 Other intervertebral disc displacement, lumbar region; E66.01 Morbid (severe) obesity due to excess calories; Z68.39 Body mass index [BMI] 39.0-39.9, adult; K29.70 Gastritis, unspecified, without bleeding; F17.290 Nicotine dependence, other tobacco product, uncomplicated; K21.9 Gastro-esophageal reflux disease without esophagitis; F41.9 Anxiety disorder, unspecified; F32.9 Major depressive disorder, single episode, unspecified; Z79.02 Long term (current) use of antithrombotics/antiplatelets; Z79.82 Long term (current) use of aspirin; Z79.84 Long term (current) use of oral hypoglycemic drugs; Z79.899 Other long term (current) drug therapy; Z91.018 Allergy to other foods; Z87.01 Personal history of pneumonia (recurrent); Z87.442 Personal history of urinary calculi; Z87.19 Personal history of other diseases of the digestive system; Z86.73 Personal history of transient ischemic attack (TIA), and cerebral infarction without residual deficits; Z87.820 Personal history of traumatic brain injury; Z90.49 Acquired absence of other specified parts of digestive tract; Z95.1 Presence of aortocoronary bypass graft; Z87.81 Personal history of (healed) traumatic fracture; I25.2 Old myocardial infarction; Z95.5 Presence of coronary angioplasty implant and graft; Z82.49 Family history of ischemic heart disease and other diseases of the circulatory system; Z80.1 Family history of malignant neoplasm of trachea, bronchus and lung; Z80.42 Family history of malignant neoplasm of prostate
CPT/HCPCS: 96376 ×4; 96361; 96374; 96375; 99285; 36415; 80053 ×2; 82150; 83690; 85025 ×2; 85610; 85730; 81003; 74177; G0378 ×3; J2405 ×2; J1170 ×3; C9113 ×3; Q9967

== ENCOUNTER → 2019-07-25 | Outpatient (CLI) | payer MEDICARE, OTHER ==
[2019-07-25 10:34] LABS: Basophils % (A) 0 %; Eosinophils # (A) 0.1 k/uL (0-0.7); Eosinophils % (A) 1 %; HCT 45.5 % (39.0-53.0); HGB 14.5 gm/dL (13.0-17.5); Lymphocytes # (A) 2.2 k/uL (1.0-4.8); Lymphocytes % (A) 33 %; MCH 29.1 pg (25.0-35.0); MCHC 31.9 g/dL (31.0-37.0); MCV 91.1 fL (80.0-100.0); Mean Platelet Volume 6.8; Monocytes # (A) 0.4 k/uL (0-1.0); Monocytes % (A) 6 %; Neutrophils # (A) 3.9 k/uL (1.3-7.7); Neutrophils % (A) 57 %; Platelet Count 226 k/uL (150-450); RDW 14.5 % (11.5-15.5); WBC 6.8 k/uL (3.8-10.6)
[2019-07-25 17:43] LABS: African American GFR (CKD) 80.1 (60.0-200.0); Albumin 4.2 g/dL (3.80-4.90); Albumin/Globulin Ratio 1.83 (1.60-3.17); BUN/Creat Ratio 11.67 Ratio (12.00-20.00); Chol/HDL Ratio 2.43; Globulin 2.3 g/dL (1.6-3.3); LDL Cholesterol,Calculated 37.8 mg/dL (0.0-131.0); Non-African American GFR(CKD) 69.1 (60.0-200.0); Total Bilirubin 0.7 mg/dL (0.3-1.2); Total Protein 6.5 g/dL (6.2-8.2); VLDL Calculation 28.2 mg/dL (5.00-40.00)
== END | disposition home or self-care (01) ==
LOC: LABWHC1 09:39
PROVIDERS: ATTEND Internal Medicine Interventional Cardiology
DX: E78.2 Mixed hyperlipidemia (principal); E11.9 Type 2 diabetes mellitus without complications; I10 Essential (primary) hypertension
CPT/HCPCS: 36415; 80053; 80061; 83036; 84443; 85025

== ENCOUNTER → 2019-10-25 | Outpatient (CLI) | payer MEDICARE, OTHER ==
--- NOTE | 2019-10-25 15:40 | US ---
EXAMINATION TYPE: US scrotum with doppler. Grayscale and color Doppler Duplex imaging performed of t he scrotum. DATE OF EXAM: 10/25/2019 COMPARISON: NONE CLINICAL HISTORY: N50.3 Cyst of epididymis. Rt side lump x years; now pain x 1 week EXAM MEASUREMENTS: TESTICLES: Right Testicle: 4.6 x 2.3 x 3.5 cm Left Testicle: 4.6 x 2.1 x 3.5 cm EPIDIDYMIS HEAD: Right Epididymis: Cyst 1.4 x 1.4 x 1.7 cm and Cyst 1.4 x 1.2 x 1.1 cm Left Epididymis: Cluster of cysts 1.4 x 1.1 x 1.5 cm Doppler performed to assess for testicular vascularity; good bilateral color flow and waveforms are s een. There is no evidence of testicular torsion. Presence of hydroceles: yes, small B/L Presence of varicoceles: no Rt appendix testis noted IMPRESSION: 1. Epididymal cysts bilaterally, largest on the right
== END | disposition home or self-care (01) ==
LOC: RADUSWWP 12:55
PROVIDERS: ATTEND Internal Medicine
DX: N50.3 Cyst of epididymis (principal)
CPT/HCPCS: 76870; 93975

== ENCOUNTER → 2020-02-05 | Outpatient (CLI) | payer MEDICARE, OTHER | END | disposition home or self-care (01) | LOC: LABWHC1 12:57 | PROVIDERS: ATTEND Internal Medicine | DX: Z20.828 Contact with and (suspected) exposure to other viral communicable diseases (principal) | CPT/HCPCS: U0003; C9803 ==

== ENCOUNTER 2020-04-11 04:08 | Inpatient (IN) | payer MEDICARE, OTHER ==
--- NOTE | 2020-04-11 04:23 | ED ---
Chest Pain HPI - General Chief Complaint: Chest Pain Stated Complaint: Chest Pain Time Seen by Provider: 04/11/20 04:09 Source: patient, EMS, RN notes reviewed, old records reviewed Mode of arrival: EMS Limitations: no limitations - History of Present Illness Initial Comments: This is a 54-year-old male to the ER for evaluation patient presents today for evaluation regards to chest pain today. Patient has long history of heart disease coming in for chest pain just like his prior need for stent placement. Patient anxious over need for this. Patient has no significant shortness of breath. Pain is been persistent although intermittent and worse with activity recent chest pain started tonight at midnight with nausea and shortness of breath MD Complaint: chest pain -: hour(s) Onset: during exertion, awoke with symptoms Pain Radiation: none Severity: moderate Severity scale (1-10): 6 Quality: tightness, heaviness Consistency: constant Improves With: nothing Worsens With: other (none) Context: other (none) Anginal Symptoms: nausea Other Symptoms: palpitations Treatments Prior to Arrival: none - Related Data Home Medications Medication Instructions Recorded Confirmed Atorvastatin [Lipitor] 80 mg PO HS 06/25/13 04/11/20 Metoprolol Tartrate [Lopressor] 50 mg PO BID 06/25/13 04/11/20 Nitroglycerin Sl Tabs [Nitrostat] 0.4 mg SUBLINGUAL Q5M PRN 06/25/13 04/11/20 Ranolazine [Ranexa] 1,000 mg PO BID 09/23/13 04/11/20 Pantoprazole Sodium [Protonix] 40 mg PO DAILY 07/02/14 04/11/20 Isosorbide Mononitrate ER [Imdur] 60 mg PO BID 10/13/15 04/11/20 Aspirin [Adult Low Dose Aspirin EC] 81 mg PO HS 01/11/16 04/11/20 amLODIPine [Norvasc] 2.5 mg PO DAILY 09/26/17 04/11/20 lisinopriL [Zestril] 20 mg PO DAILY 09/26/17 04/11/20 Clopidogrel Bisulfate [Plavix] 75 mg PO DAILY 10/15/18 04/11/20 ALPRAZolam [Xanax] 0.25 mg PO BID PRN 04/11/20 04/11/20 HYDROcodone/APAP 5-325MG [[place] 1 tab PO DAILY PRN 04/11/20 04/11/20 5-325] Previous Rx's Medication Instructions Recorded metFORMIN HCL [Glucophage] 500 mg PO BID #0 11/27/17 Allergies Allergy/AdvReac Type Severity Reaction Status Date / Time chocolate flavor Allergy Rash/Hives Verified 04/11/20 07:52 [facility] Allergy Rash/Hives Verified 04/11/20 07:52 [[facility]] Review of Systems ROS Statement: Those systems with pertinent positive or pertinent negative responses have been documented in the HPI. ROS Other: All systems not noted in ROS Statement are negative. 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 Last Myocardial Infarction Date:: 01-22-2011 History of Any Multi-Drug Resistant Organisms: None Reported Past Surgical History: Adenoidectomy, Cholecystectomy, Coronary Bypass/CABG, Heart Catheterization, Heart Catheterization With Stent, Hernia Repair Additional Past Surgical History / Comment(s): Several caths with last one done 11/23 treated medically, total 6 stents (states placed 01/2011, and 03/2019), CABG 5 vessel in 2008 (stents came after open heart was done), EGD/colonoscopy, hemorrhoid banding, umbilical hernia repair Past Anesthesia/Blood Transfusion Reactions: Previous Problems w/ Anesthesia Additional Past Anesthesia/Blood Transfusion Reaction / Comment(s): stated "wakes up slower than normal" Date of Last Stent Placement:: 11/2017 Past Psychological History: Anxiety, Depression Smoking Status: Light tobacco smoker Past Alcohol Use History: Occasional Past Drug Use History: Marijuana - Past Family History Father Family Medical History: Coronary Artery Disease (CAD) Additional Family Medical History / Comment(s): dad is 75. stents, bypass, prostate and lung cancer. Mother Additional Family Medical History / Comment(s): mom 1997 at age 59- brain aneurysm General Exam Limitations: no limitations General appearance: alert, in no apparent distress, anxious Head exam: Present: atraumatic, normocephalic, normal inspection Eye exam: Present: normal appearance, PERRL, EOMI. Absent: scleral icterus, conjunctival injection, periorbital swelling ENT exam: Present: normal exam, mucous membranes moist Neck exam: Present: normal inspection. Absent: tenderness, meningismus, lymphadenopathy Respiratory exam: Present: normal lung sounds bilaterally. Absent: respiratory distress, wheezes, rales, rhonchi, stridor Cardiovascular Exam: Present: regular rate, normal rhythm, normal heart sounds. Absent: systolic murmur, diastolic murmur, rubs, gallop, clicks GI/Abdominal exam: Present: soft, normal bowel sounds. Absent: distended, tenderness, guarding, rebound, rigid Extremities exam: Present: normal inspection, full ROM, normal capillary refill. Absent: tenderness, pedal edema, joint swelling, calf tenderness Back exam: Present: normal inspection Neurological exam: Present: alert, oriented X3, CN II-XII intact Psychiatric exam: Present: normal affect, normal mood Skin exam: Present: warm, dry, intact, normal color. Absent: rash Course Vital Signs 04/11/20 04/11/20 04/11/20 04:11 04:14 04:22 Temperature 99.2 F Pulse Rate 94 96 Respiratory 18 18 Rate Blood Pressure 136/101 154/98 O2 Sat by Pulse 96 97 Oximetry 04/11/20 04/11/20 04/11/20 05:15 05:40 07:44 Temperature Pulse Rate 89 88 Respiratory 17 18 Rate Blood Pressure 124/86 157/99 148/84 O2 Sat by Pulse 96 97 Oximetry - Reevaluation(s) Reevaluation #1: Medical record is reviewed Patient still with persistent chest pain here in the ER Patient informed of results here in the ER, questions answered Patient okay for admission and cardiology to evaluate Chest Pain MDM - MDM 51 female with known history of heart disease coming in for unstable angina. Patient be admitted for cardiac evaluation and treatment he does have persistent chest pain here in the ER Critical Care Time Critical Care Time: Yes Total Critical Care Time: 31 Disposition Clinical Impression: Unstable angina pectoris, Chest pain Disposition: ADMITTED IP TO THIS HOSP Condition: Good Is patient prescribed a controlled substance at d/c from ED?: No
[2020-04-11 04:56] LABS: Basophils % (A) 0 %; Eosinophils # (A) 0.2 k/uL (0-0.7); Eosinophils % (A) 2 %; HCT 43.5 % (39.0-53.0); HGB 14.2 gm/dL (13.0-17.5); Lymphocytes # (A) 2.7 k/uL (1.0-4.8); Lymphocytes % (A) 28 %; MCH 29.2 pg (25.0-35.0); MCHC 32.6 g/dL (31.0-37.0); MCV 89.4 fL (80.0-100.0); Mean Platelet Volume 7.2; Monocytes # (A) 0.7 k/uL (0-1.0); Monocytes % (A) 7 %; Neutrophils # (A) 6.1 k/uL (1.3-7.7); Neutrophils % (A) 62 %; Platelet Count 269 k/uL (150-450); RBC 4.86 m/uL (4.30-5.90); RDW 14.7 % (11.5-15.5); WBC 9.9 k/uL (3.8-10.6)
--- NOTE | 2020-04-11 05:23 | XR ---
EXAM: XR Chest, 2 Views CLINICAL HISTORY: ITS.REASON XR Reason: Chest Pain TECHNIQUE: Frontal and lateral views of the chest. COMPARISON: 07/25/2018 FINDINGS: Lungs: Unremarkable. No consolidation. Pleural space: Unremarkable. No pneumothorax. Heart: Unremarkable. No cardiomegaly. Mediastinum: Median sternotomy wires in place. Bones/joints: Unremarkable. IMPRESSION: No acute pulmonary process.
[2020-04-11 05:33] LABS: Albumin 4.1 g/dL (3.5-5.0); Calcium 9.3 mg/dL (8.4-10.2); INR 0.9 (<1.2); Magnesium 1.7 mg/dL (1.6-2.3); Partial Thromboplastin Time 22.2 sec (22.0-30.0); Potassium 4.7 mmol/L (3.5-5.1); Total Bilirubin 0.7 mg/dL (0.2-1.3); Total Protein 6.9 g/dL (6.3-8.2)
[2020-04-11] MEDS ORDERED: MORPHINE SULFATE 4 MG/ML SYRINGE IV PRN (06:01)
[2020-04-11] MEDS ORDERED: ASPIRIN 81 MG PO STA (06:01)
[2020-04-11] MEDS ORDERED: NITROGLYCERIN SL TABS 0.4 MG TAB SUBLINGUAL PRN ×2 (06:01→10:47)
[2020-04-11] MEDS: SODIUM CHLORIDE 0.9% 1,000 ML IV SCH (06:21)
[2020-04-11 08:24] LABS: Glucose,Whole Blood 159 mg/dL (75-99)
[2020-04-11] MEDS ORDERED: HEPARIN SODIUM,PORCINE 5,000 UNIT/ML 1 ML VIAL IV PRN (10:15)
[2020-04-11] MEDS ORDERED: HEPARIN SODIUM,PORCINE 5,000 UNIT/ML 1 ML VIAL IV ONE (10:15)
[2020-04-11] MEDS ORDERED: HEPARIN SOD,PORK IN 0.45% NACL 25,000 UNIT in 0.45% NACL 1 250ML.BAG IV SCH (10:15)
[2020-04-11] MEDS ORDERED: HYDROcodone/APAP 5-325MG 1 EACH TAB PO PRN (10:47)
[2020-04-11] MEDS ORDERED: ALPRAZolam 0.25 MG TAB PO PRN (10:47)
--- NOTE | 2020-04-11 10:52 | P.HPIM ---
History of Present Illness H&P Date: 04/11/20 Chief Complaint: Chest pain. This is a 54-year-old gentleman patient of [facility] and Dr Jorgensen with history of CAD, CABG, previous CVA involving the occipital lobe,chronic tobacco use and cigar use, moderate alcohol consumption. His cardiac history are as follows:coronary artery disease multiple procedure including bypass grafting 2008 which is HOPKINS to the LAD and saphenous vein graft to the diagonal 1 saphenous vein graft to the diagonal 2 and saphenous vein graft to the obtuse marginal and right coronary artery. His last heart catheterization was in November 2017 at which time circumflex had a 60-70% lesion with fractional flow reserve of that lesion to be ischemic at 0.80. Mid left circumflex normal, left circumflex distally normal. LAD with mild disease, right coronary artery chronically occluded at the proximal portion and fills with collaterals from the left coronary system. The saphenous vein graft to the first diagonal, saphenous vein graft to the second diagonal, saphenous vein graft to the obtuse marginal were all patent. HOPKINS to LAD was atrophic and included in the midportion. Patient underwent drug-eluting stent to the proximal left circumflex. Patient was seen by Dr. Jorgensen about 2 weeks ago and he was scheduled to go for laboratory evaluation as well as a stress test scheduled to be done prior to his next appointment which would be in the summer, patient was doing fine he continues to struggle to lose weight, he has been doing fine otherwise, he had ravioli and breadsticks last night he went to bed around 12:00 woke up around 3:00 in the morning was coming of clammy sweat not feeling well nauseated had 3 Ren bowel movement and he was completely left-sided chest and the same time he ended up coming to the ER via EMS for evaluation, his laboratory evaluation were negative chest x-ray did not show any evidence of acute of normalities, because of the presentation and his a prior history was admitted to the hospital for evaluation by cardiology abdominal x-ray still pending. Review of Systems Constitutional: Reports chronic pain, Reports weight gain, Denies anorexia, Denies lethargy, Denies weakness, Denies weight loss Eyes: denies blurred vision, denies bulging eye, denies decreased vision Ears: deny: decreased hearing Ears, nose, mouth and throat: Denies dysphagia, Denies neck lump, Denies sore throat Cardiovascular: Reports chest pain, Reports decreased exercise tolerance, Re ports dyspnea on exertion, Reports shortness of breath, Denies lightheadedness, Denies syncope Gastrointestinal: Reports abdominal pain, Reports bloating, Reports diarrhea, Re ports excessive gas, Reports indigestion, Reports nausea, Denies BRBPR, Denies change in bowel habits, Denies vomiting Genitourinary: Denies nocturia Musculoskeletal: Denies myalgias Musculoskeletal: absent: ankle pain, ankle stiffness, ankle swelling, elbow pain, elbow stiffness, elbow swelling, foot pain, foot stiffness, foot swelling, hand pain, hand stiffness, hand swelling, hip pain, hip stiffness, hip swelling, knee pain, knee stiffness, knee swelling, shoulder pain, shoulder stiffness, shoulder swelling, wrist pain, wrist stiffness, wrist swelling Integumentary: Denies pruritus, Denies rash Neurological: Denies numbness, Denies weakness Psychiatric: Denies anxiety, Denies depression Endocrine: Denies fatigue, Denies weight change Past Medical History Past Medical History: Coronary Artery Disease (CAD), Chest Pain / Angina, CVA/TIA, Diabetes Mellitus, GI Bleed, Hyperlipidemia, Hypertension, Myocardial Infarction ([place]), Pneumonia Additional Past Medical History / Comment(s): 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 Last Myocardial Infarction Date:: 01-22-2011 History of Any Multi-Drug Resistant Organisms: None Reported Past Surgical History: Adenoidectomy, Cholecystectomy, Coronary Bypass/CABG, Heart Catheterization, Heart Catheterization With Stent, Hernia Repair Additional Past Surgical History / Comment(s): Several caths with last one done 11/23 treated medically, total 6 stents (states placed 01/2011, and 03/2019), CABG 5 vessel in 2008 (stents came after open heart was done), EGD/colonoscopy, hemorrhoid banding, umbilical hernia repair Past Anesthesia/Blood Transfusion Reactions: Previous Problems w/ Anesthesia Additional Past Anesthesia/Blood Transfusion Reaction / Comment(s): stated "wakes up slower than normal" Date of Last Stent Placement:: 03/2019 Past Psychological History: Anxiety, Depression Additional Psychological History / Comment(s): Pt states he has no current mental health disease. He states he had suicidal thoughts yrs ago at age 43, immediately following CABG in 2008 due to drastic lifestyle changes and being told he could no longer work. Patient currently lives with brother and niece. lives with brother and neice, does not work Smoking Status: Light tobacco smoker Past Alcohol Use History: Occasional Additional Past Alcohol Use History / Comment(s): started smoking age 15 never more than 1/2 ppd and later in life took up cigars (one per week at most). one cigar and glass of scotch/week Past Drug Use History: Marijuana Additional Drug Use History / Comment(s): as teenager into 20's occ, "seldom marijuana" - Past Family History Father Family Medical History: Coronary Artery Disease (CAD) Additional Family Medical History / Comment(s): dad is 75. stents, bypass, prostate and lung cancer. Mother Additional Family Medical History / Comment(s): mom 1997 at age 59- brain aneurysm Medications and Allergies Home Medications Medication Instructions Recorded Confirmed Type Atorvastatin [Lipitor] 80 mg PO HS 06/25/13 04/11/20 History Metoprolol Tartrate [Lopressor] 50 mg PO BID 06/25/13 04/11/20 History Nitroglycerin Sl Tabs [Nitrostat] 0.4 mg SUBLINGUAL Q5M PRN 06/25/13 04/11/20 History Ranolazine [Ranexa] 1,000 mg PO BID 09/23/13 04/11/20 History Pantoprazole Sodium [Protonix] 40 mg PO DAILY 07/02/14 04/11/20 History Isosorbide Mononitrate ER [Imdur] 60 mg PO BID 10/13/15 04/11/20 History Aspirin [Adult Low Dose Aspirin EC] 81 mg PO HS 01/11/16 04/11/20 History amLODIPine [Norvasc] 2.5 mg PO DAILY 09/26/17 04/11/20 History lisinopriL [Zestril] 20 mg PO DAILY 09/26/17 04/11/20 History metFORMIN HCL [Glucophage] 500 mg PO BID #0 11/27/17 04/11/20 Rx Clopidogrel Bisulfate [Plavix] 75 mg PO DAILY 10/15/18 04/11/20 History ALPRAZolam [Xanax] 0.25 mg PO BID PRN 04/11/20 04/11/20 History HYDROcodone/APAP 5-325MG [[place] 1 tab PO DAILY PRN 04/11/20 04/11/20 History 5-325] Allergies Allergy/AdvReac Type Severity Reaction Status Date / Time chocolate flavor Allergy Rash/Hives Verified 04/11/20 07:52 Shannon And Derivatives Allergy Rash/Hives Verified 04/11/20 07:52 [Shannon] Physical Exam Vitals: Vital Signs Temp Pulse Pulse Resp BP BP Pulse Ox 04/11/20 08:00 98.0 F 93 19 146/98 96 04/11/20 07:44 88 18 148/84 97 04/11/20 05:40 89 17 157/99 96 04/11/20 05:15 124/86 04/11/20 04:22 96 18 154/98 97 04/11/20 04:14 99.2 F 04/11/20 04:11 94 18 136/101 96 Intake and Output 04/10/20 04/11/20 04/11/20 22:59 06:59 14:59 Other: Weight 127.006 kg 127.006 kg Physical examination: HEENT: Head is atraumatic, normocephalic, pupils were equal round reactive to light and the clinician, extraocular muscles were intact, sclera nonicteric, conjunctivae without pallor, mucous membranes of the mouth are moist. Neck: Supple, no JVP, no lymphadenopathy. Chest: Decreased breath sounds at the bases, few rhonchi, no extremity wheezes, no chest wall tenderness, no intercostal retractions. Heart: First heart sound is depressed, second heart sounds normal, there is no gallop or murmur. Abdomen: Soft, obese, nonspecific tenderness, positive bowel sounds. Extremities: There is no edema, no calf tenderness, dorsalis pedis +2 bilaterally. Neurologic examination: Patient is awake alert and oriented 3, creatinine nerves II-12 appear grossly intact, muscle power 5 out of 5 in upper and lower extremities bilaterally. Results CBC & Chem 7: 04/11/20 04:27 04/11/20 04:37 Labs: Abnormal Lab Results - Last 24 Hours (Table) 04/11/20 04/11/20 Range/Units 04:37 08:22 BUN 29 H (9-20) mg/dL Creatinine 1.30 H (0.66-1.25) mg/dL Glucose 115 H (74-99) mg/dL POC Glucose (mg/dL) 159 H (75-99) mg/dL Creatine Kinase 32 L (55-170) U/L Thrombosis Risk Factor Assmnt - DVT/VTE Prophylaxis DVT/VTE Prophylaxis: Pharmacologic Prophylaxis ordered, Mechanical Prophylaxis ordered - Choose All That Apply Any of the Below Risk Factors Present?: Yes Each Factor Represents 1 point: Age 41-60 years, Obesity (BMI >25) Other Risk Factors: No Thrombosis Risk Factor Assessment Total Risk Factor Score: 2 Thrombosis Risk Factor Assessment Level: Low Risk Assessment and Plan Assessment: Assessment and plan: 1. Chest pain likely noncardiac likely related to possible gastroenteritis . We will continue with IV fluid resuscitation, obtain abdominal x-ray, cardiac enzymes are negative 3, cardiology evaluation. 2. Possible gastroenteritis, continue IV fluid, check stools for clostridium difficile toxins a and B, abdominal x-ray to be obtained. 3. CAD with prior bypass surgery and percutaneous coronary interventions. Continue metoprolol at 50 mg orally twice every day, aspirin 81 mg daily, atorvastatin 80 mg at bedtime, Ranexa 100 mg orally twice every day. 4. COPD without exacerbation . Patient is in room air. 5. CKD stage II, nephrotoxins will be avoided, hypotension would be avoided, labs will be monitored 6. Ischemic cardiomyopathy with angina: With multiple coronary artery disease. We will continue patient on metoprolol 50 mg orally twice every day, lisinopril 10 mg orally once every day, Ranexa 500 mg orally twice every day and Imdur 60 mg orally twice every day. 7. Hypertension and hypertensive cardiovascular disease. metoprolol 50 mg twice a day, lisinopril 20 mg daily, Norvasc 2.5 mg daily. 8. Hyperlipidemia. On atorvastatin 80 mg daily. 9. Recurrent gastritis and GERD. Protonix 40 mg daily. 10. Chronic tobacco use. Smoking cessation 11. GI prophylaxis. We will continue with Protonix 40 mg orally once every day. 12. DVT prophylaxis. Heparin 5000 units subcutaneously every 8 hours. 13. Morbid obesity with BMI of 39.7 we will continue with diet and exercise and weight loss and total life style changes with risk factor modifications. 14. Admitted as an observation. 15. Patient is full code.
[2020-04-11 11:14] LABS: Basophils % (A) 0 %; Eosinophils # (A) 0.1 k/uL (0-0.7); Eosinophils % (A) 1 %; HCT 43.8 % (39.0-53.0); HGB 14.3 gm/dL (13.0-17.5); Lymphocytes # (A) 1.6 k/uL (1.0-4.8); Lymphocytes % (A) 19 %; MCH 29.6 pg (25.0-35.0); MCHC 32.7 g/dL (31.0-37.0); MCV 90.5 fL (80.0-100.0); Mean Platelet Volume 6.9; Monocytes # (A) 0.5 k/uL (0-1.0); Monocytes % (A) 6 %; Neutrophils # (A) 5.8 k/uL (1.3-7.7); Neutrophils % (A) 72 %; Platelet Count 235 k/uL (150-450); RBC 4.84 m/uL (4.30-5.90); RDW 14.5 % (11.5-15.5); WBC 8.1 k/uL (3.8-10.6)
[2020-04-11 11:17] LABS: Partial Thromboplastin Time 22.2 sec (22.0-30.0); Prothrombin Time 10.3 sec (9.0-12.0)
[2020-04-11 12:09] LABS: Glucose,Whole Blood 146 mg/dL (75-99)
--- NOTE | 2020-04-11 12:17 | XR ---
2 view abdomen HISTORY: Pain and diarrhea 2 views of the abdomen on 4 images, correlation prior exam 10/13/2015 Patient is post median sternotomy. Lung bases are clear. There are air-fluid levels without bowel dis tention. Surgical clips present in the right upper quadrant. No pneumoperitoneum. Urinary bladder sinan ears somewhat dense. There are dense vascular calcifications in the pelvis. Bone mineralization is ma intained. IMPRESSION: Nonobstructive bowel gas pattern, consider ileus, follow-up as indicated
[2020-04-11] MEDS: INSULIN ASPART (NovoLOG) 100 UNIT/ML VIAL SQ SCH ×2 (13:04→18:28)
[2020-04-11] MEDS: IOPAMIDOL CONTRAST (ORAL USE) VIAL PO PRN ×2 (13:38→14:29)
--- NOTE | 2020-04-11 15:35 | P.CRDCN ---
History of Present Illness Consult date: 04/11/20 History of present illness: CHIEF COMPLAINT: Chest pain HISTORY OF PRESENT ILLNESS: This is a 54-year-old male with a past medical history significant for diabetes mellitus, hypertension, hyperlipidemia, CVA, and coronary artery disease with previous CABG and stenting. Patient follows in the office with Dr Jorgensen. We have been asked to see the patient in consultation for chest pain. Patient reports he woke up around 3 AM with chest discomfort. He states this was on the left side of his chest and felt like a heavy pressure. He states the pain radiated down his left arm. He reports feeling nauseated. He reports diaphoresis. He denies any significant shortness of breath. He states the discomfort lasts until about 6 AM. He called EMS and was transported to the hospital. He reports receiving nitro and aspirin in route to the hospital which relieved his pain. The patient continues to report some mild nausea and chest discomfort this morning. He is currently rating his pain 1/10. The patient underwent cardiac catheterization in November [address] Santoyo revealing mild disease of the left main coronary artery, mild disease involving the left anterior descending artery. HOPKINS to LAD is atrophic because there is no obstructive disease in the LAD. Patent saphenous vein graft to the first and second diagonal branches of the LAD. Severe disease involving the proximal left circumflex coronary artery. Patent saphenous vein graft to OM branch of the left circumflex. Chronic total occlusion of the right coronary artery. Known occluded SVG to RCA which was documented from previous heart cath. Patient underwent successful stenting of the proximal left circumflex. Patient states he was hospitalized in March 2019 at [facility] and states he had a heart catheterization performed at that time with a stent placed. Patient is unsure which vessel was stented. DIAGNOSTICS: EKG reveals sinus mechanism with T-wave inversions in lead 1, aVL, and V2 Chest xray no acute pulmonary process Laboratory data: WBC 8.1. Hemoglobin 14.3. Platelet count 235. Sodium 137. Potassium 4.7. BUN 29. Creatinine 1.30. Magnesium 1.7. Troponin negative 1. BNP 70. Current home cardiac medications include lisinopril 20 mg daily, amlodipine 2.5 mg daily, Ranexa 1000 g twice a day, metoprolol tartrate 50 mg twice a day, Imdur 60 mg twice a day, Plavix 75 mg daily, Lipitor 80 mg daily, and aspirin 81 mg daily REVIEW OF SYSTEMS: At the time of my exam: CONSTITUTIONAL: Denies fever or chills. HEENT: Denies blurred vision, vision changes, or eye pain. Denies hemoptysis CARDIOVASCULAR: Denies chest pain, orthopnea, PND or palpitations RESPIRATORY: No shortness of breath. GASTROINTESTINAL: Denies abdominal pain. Denies nausea or vomiting. HEMATOLOGIC: Denies bleeding disorders. GENITOURINARY: Denies any blood in urine. SKIN: Denies pruitis. Denies rash. PHYSICAL EXAM: VITAL SIGNS: Reviewed. GENERAL: Well-developed in no acute distress. HEENT: Head is normocephalic. Pupils are equal, round. Sclerae anicteric. Mucous membranes of the mouth are moist. Neck supple. No JVD or thyromegaly LUNGS: Respirations even and unlabored. Lungs diminished bilaterally. HEART: Regular rate and rhythm. S1 and S2 heard. ABDOMEN: Soft. Nondistended. Nontender. EXTREMITIES: Normal range of motion. No clubbing or cyanosis. Peripheral pul ses intact. No lower extremity edema NEUROLOGIC: Awake and alert. Oriented x 3. ASSESSMENT: Chest pain Coronary artery disease with previous CABG and multivessel PCI Hypertension Hyperlipidemia Diabetes mellitus Chronic kidney disease History of CVA Anxiety Depression Nicotine dependence Morbid obesity PLAN: Continue to trend troponins Begin IV heparin for ongoing chest discomfort Resume home cardiac medications Obtain 2-D echo to assess cardiac structure and function Possible stress test versus heart cath to be performed on Monday Nurse practitioner note has been reviewed by physician. Signing provider agrees with the documented findings, assessment, and plan of care. 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 Last Myocardial Infarction Date:: 01-22-2011 History of Any Multi-Drug Resistant Organisms: None Reported Past Surgical History: Adenoidectomy, Cholecystectomy, Coronary Bypass/CABG, Heart Catheterization, Heart Catheterization With Stent, Hernia Repair Additional Past Surgical History / Comment(s): Several caths with last one done 11/23 treated medically, total 6 stents (states placed 01/2011, and 03/2019), CABG 5 vessel in 2008 (stents came after open heart was done), EGD/colonoscopy, hemorrhoid banding, umbilical hernia repair Past Anesthesia/Blood Transfusion Reactions: Previous Problems w/ Anesthesia Additional Past Anesthesia/Blood Transfusion Reaction / Comment(s): stated "wakes up slower than normal" Date of Last Stent Placement:: 03/2019 Past Psychological History: Anxiety, Depression Additional Psychological History / Comment(s): Pt states he has no current mental health disease. He states he had suicidal thoughts yrs ago at age 43, immediately following CABG in 2008 due to drastic lifestyle changes and being told he could no longer work. Patient currently lives with brother and niece. lives with brother and neice, does not work Smoking Status: Light tobacco smoker Past Alcohol Use History: Occasional Additional Past Alcohol Use History / Comment(s): started smoking age 15 never more than 1/2 ppd and later in life took up cigars (one per week at most). one cigar and glass of scotch/week Past Drug Use History: Marijuana Additional Drug Use History / Comment(s): as teenager into 20's occ, "seldom marijuana" - Past Family History Father Family Medical History: Coronary Artery Disease (CAD) Additional Family Medical History / Comment(s): dad is 75. stents, bypass, prostate and lung cancer. Mother Additional Family Medical History / Comment(s): mom 1997 at age 59- brain aneurysm Medications and Allergies Home Medications Medication Instructions Recorded Confirmed Type Atorvastatin [Lipitor] 80 mg PO HS 06/25/13 04/11/20 History Metoprolol Tartrate [Lopressor] 50 mg PO BID 06/25/13 04/11/20 History Nitroglycerin Sl Tabs [Nitrostat] 0.4 mg SUBLINGUAL Q5M PRN 06/25/13 04/11/20 History Ranolazine [Ranexa] 1,000 mg PO BID 09/23/13 04/11/20 History Pantoprazole Sodium [Protonix] 40 mg PO DAILY 07/02/14 04/11/20 History Isosorbide Mononitrate ER [Imdur] 60 mg PO BID 10/13/15 04/11/20 History Aspirin [Adult Low Dose Aspirin EC] 81 mg PO HS 01/11/16 04/11/20 History amLODIPine [Norvasc] 2.5 mg PO DAILY 09/26/17 04/11/20 History lisinopriL [Zestril] 20 mg PO DAILY 09/26/17 04/11/20 History metFORMIN HCL [Glucophage] 500 mg PO BID #0 11/27/17 04/11/20 Rx Clopidogrel Bisulfate [Plavix] 75 mg PO DAILY 10/15/18 04/11/20 History ALPRAZolam [Xanax] 0.25 mg PO BID PRN 04/11/20 04/11/20 History HYDROcodone/APAP 5-325MG [[place] 1 tab PO DAILY PRN 04/11/20 04/11/20 History 5-325] Allergies Allergy/AdvReac Type Severity Reaction Status Date / Time chocolate flavor Allergy Rash/Hives Verified 04/11/20 07:52 Harney And Derivatives Allergy Rash/Hives Verified 04/11/20 07:52 [Har[place]] Physical Exam Vitals: Vital Signs Temp Pulse Pulse Resp BP BP Pulse Ox 04/11/20 08:00 98.0 F 93 19 146/98 96 04/11/20 07:44 88 18 148/84 97 04/11/20 05:40 89 17 157/99 96 04/11/20 05:15 124/86 04/11/20 04:22 96 18 154/98 97 04/11/20 04:14 99.2 F 04/11/20 04:11 94 18 136/101 96 Intake and Output 04/10/20 04/11/20 04/11/20 22:59 06:59 14:59 Other: Weight 127.006 kg 127.006 kg Results 04/11/20 10:34 04/11/20 04:37 Cardiac Enzymes 04/11/20 04/11/20 04/11/20 Range/Units 04:37 04:37 08:54 AST 25 (17-59) U/L Troponin I <0.012 <0.012 (0.000-0.034) ng/mL 04/11/20 Range/Units 10:34 AST (17-59) U/L Troponin I <0.012 (0.000-0.034) ng/mL Coagulation 04/11/20 04/11/20 Range/Units 04:37 10:34 PT 10.0 10.3 (9.0-12.0) sec APTT 22.2 22.2 (22.0-30.0) sec CBC 04/11/20 04/11/20 Range/Units 04:27 10:34 WBC 9.9 8.1 (3.8-10.6) k/uL RBC 4.86 4.84 (4.30-5.90) m/uL Hgb 14.2 14.3 (13.0-17.5) gm/dL Hct 43.5 43.8 (39.0-53.0) % Plt Count 269 235 (150-450) k/uL Comprehensive Metabolic Panel 04/11/20 Range/Units 04:37 Sodium 137 (137-145) mmol/L Potassium 4.7 (3.5-5.1) mmol/L Chloride 104 (98-107) mmol/L Carbon Dioxide 26 (22-30) mmol/L BUN 29 H (9-20) mg/dL Creatinine 1.30 H (0.66-1.25) mg/dL Glucose 115 H (74-99) mg/dL Calcium 9.3 (8.4-10.2) mg/dL AST 25 (17-59) U/L ALT 28 (4-49) U/L Alkaline Phosphatase 71 (38-126) U/L Total Protein 6.9 (6.3-8.2) g/dL Albumin 4.1 (3.5-5.0) g/dL Current Medications Generic Name Dose Route Start Last Admin Trade Name Freq PRN Reason Stop Dose Admin Hydrocodone Bitart/Acetaminophen 1 each 04/11/20 10:47 Hydrocodone/Apap 5-325mg 1 Each Tab PO DAILY PRN Pain Alprazolam 0.25 mg 04/11/20 10:47 Alprazolam 0.25 Mg Tab PO BID PRN Anxiety Amlodipine Besylate 2.5 mg 04/12/20 09:00 Amlodipine 2.5 Mg Tab PO DAILY EDWARDO Aspirin 81 mg 04/11/20 21:00 Aspirin 81 Mg PO HS EDWARDO Atorvastatin Calcium 80 mg 04/11/20 21:00 Atorvastatin 80 Mg Tab PO HS [facility] Clopidogrel Bisulfate 75 mg 04/12/20 09:00 Clopidogrel 75 Mg Tab PO DAILY [facility] Heparin Sodium (Porcine) 0 unit 04/11/20 10:15 Heparin Sodium,Porcine 5,000 Unit/Ml 1 Ml Vial IV PER PROTOCOL PRN Low PTT Protocol Sodium Chloride 1,000 mls @ 75 mls/hr 04/11/20 06:15 04/11/20 06:21 Saline 0.9% IV 20 mls/hr .[id number] [facility] Administration Heparin Sodium/Sodium Chloride 250 mls @ 9.906 mls/hr 04/11/20 10:15 04/11/20 10:44 25,000 unit/ Sodium Chloride IV 7.8 units/kg/hr .Q24H EDWARDO 9.906 mls/hr Administration Protocol 7.8 UNITS/KG/HR Insulin Aspart 0 unit 04/11/20 12:30 Insulin Aspart (Novolog) 100 Unit/Ml Vial SQ AC-TID [facility] Protocol Iopamidol 30 ml 04/11/20 13:11 Iopamidol Contrast (Oral Use) Vial PO 04/12/20 13:[address] Scan Isosorbide Mononitrate 60 mg 04/11/20 21:00 Isosorbide Mononitrate Er 60 Mg Tab.Er.24h PO BID [facility] Lisinopril 20 mg 04/12/20 09:00 Lisinopril 20 Mg Tab PO DAILY [facility] Metoprolol Tartrate 50 mg 04/11/20 21:00 Metoprolol Tartrate 50 Mg Tab PO BID [facility] Morphine Sulfate 4 mg 04/11/20 06:01 Morphine Sulfate 4 Mg/Ml Syringe IV Q4HR PRN Chest Pain Nitroglycerin 0.4 mg 04/11/20 06:01 Nitroglycerin Sl Tabs 0.4 Mg Tab SUBLINGUAL Q5M PRN Chest Pain Nitroglycerin 0.4 mg 04/11/20 10:47 Nitroglycerin Sl Tabs 0.4 Mg Tab SUBLINGUAL Q5M PRN Chest Pain Pantoprazole Sodium 40 mg 04/12/20 09:00 Pantoprazole 40 Mg Tablet PO DAILY [facility] Ranolazine 1,000 mg 04/11/20 21:00 Ranolazine 500 Mg Tab.Er.12h PO BID [facility] Intake and Output 04/10/20 04/11/20 04/11/20 22:59 06:59 14:59 Other: Weight 127.006 kg 127.006 kg Patient Weight 04/12/20 06:59 Weight 127.006 kg 04/11/20 10:34 04/11/20 04:37
[2020-04-11] MEDS ORDERED: HEPARIN SODIUM,PORCINE 5,000 UNIT/ML 1 ML VIAL SQ SCH (16:00)
--- NOTE | 2020-04-11 16:18 | CT ---
EXAMINATION TYPE: CT abdomen pelvis w con DATE OF EXAM: 04/11/2020 COMPARISON: Prior exam 10/15/2018 HISTORY: Bloody stools. CT DLP: 3259.2 mGycm Automated exposure control for dose reduction was used. TECHNIQUE: Helical acquisition from the lung bases through the pelvis following intravenous and oral contrast CONTRAST: Performed with Oral Contrast and with IV Contrast, patient injected with 100 mL of Isovue 300. FINDINGS: LUNG BASES: No significant abnormality is appreciated. AORTA: No significant abnormality is appreciated. LIVER/GB: Patient is post cholecystectomy, liver shows a stable appearance PANCREAS: No significant abnormality is seen. SPLEEN: No significant abnormality is seen. ADRENALS: No significant abnormality is seen. KIDNEYS: No significant interval change is seen. REPRODUCTIVE ORGANS: No significant abnormality is seen BOWEL: Some scattered diverticular changes are present. No evident bowel obstruction. Appendix is no rmal. FREE AIR: No Free Air visible. ASCITES: None visible. PELVIC ADENOPATHY: None visualized. RETROPERITONEAL ADENOPATHY: No Retroperitoneal Adenopathy visible. URINARY BLADDER: No significant abnormality is seen. OSSEOUS STRUCTURES: No significant interval change is seen. IMPRESSION: DIVERTICULOSIS. ESSENTIALLY STABLE EXAM.
[2020-04-11 17:22] LABS: Glucose,Whole Blood 126 mg/dL (75-99)
--- NOTE | 2020-04-11 18:00 | ECHOF ---
Referral Reason:lv fucntion MEASUREMENTS -------- HEIGHT: 180.3 cm WEIGHT: 127.0 kg BP: IVSd: 1.1 cm (0.6 - 1.1) LVIDd: 4.6 cm (3.9 - 5.3) LVPWd: 1.1 cm (0.6 - 1.1) IVSs: 1.3 cm LVIDs: 2.9 cm LVPWs: 1.8 cm Ao Diam: 3.0 cm (2.0 - 3.7) AV Cusp: 2.4 cm (1.5 - 2.6) LA Diam: 3.9 cm (2.7 - 3.8) MV EXCURSION: 12.104 mm (> 18.000) MV EF SLOPE: 100 mm/s (70 - 150) EPSS: 0.7 cm MV E Angel: 0.64 m/s MV DecT: 177 ms MV A Angel: 0.55 m/s MV E/A Ratio: 1.16 RAP: 5.00 mmHg RVSP: 20.59 mmHg FINDINGS -------- This was a technically difficult study with suboptimal views. The left ventricular size is normal. Left ventricular wall thickness is normal. Overall left vent ricular systolic function is normal with, an EF between 55 - 60 %. The right ventricle is normal in size. The left atrial size is normal. The right atrial size is normal. 5.0mg of Lumason was utilized for enhancement of images The aortic valve was not well visualized. The mitral valve was not well visualized. There is trace mitral regurgitation. The tricuspid valve appears structurally normal. Trace tricuspid regurgitation present. Right mendel tricular systolic pressure is normal at < 35 mmHg. The pulmonic valve was not well visualized. The aortic root size is normal. IVC Not well visulized. There is no pericardial effusion. CONCLUSIONS -------- 1. The left ventricular size is normal. 2. Left ventricular wall thickness is normal. 3. Overall left ventricular systolic function is normal with, an EF between 55 - 60 %. 4. There is trace mitral regurgitation. 5. Trace tricuspid regurgitation present. 6. There is no pericardial effusion. [place]. REPRESENTATIVE: Cherri Doe RD
[2020-04-11 19:43] LABS: Glucose,Whole Blood 144 mg/dL (75-99)
[2020-04-11] MEDS: RANOLAZINE 500 MG TAB.ER.12H PO SCH (20:12)
[2020-04-11] MEDS: METOPROLOL TARTRATE 50 MG TAB PO SCH (20:12)
[2020-04-11] MEDS: ISOSORBIDE MONONITRATE ER 60 MG TAB.ER.24H PO SCH (20:12)
[2020-04-11] MEDS: ATORVASTATIN 80 MG TAB PO SCH (20:12)
[2020-04-11] MEDS: ASPIRIN 81 MG PO SCH (22:10)
[2020-04-12 07:25] LABS: Glucose,Whole Blood 125 mg/dL (75-99)
[2020-04-12] MEDS: INSULIN ASPART (NovoLOG) 100 UNIT/ML VIAL SQ SCH ×3 (07:45→17:33)
[2020-04-12] MEDS: lisinopriL 20 MG TAB PO SCH (08:33)
[2020-04-12] MEDS: PANTOPRAZOLE 40 MG TABLET PO SCH (08:33)
[2020-04-12] MEDS: RANOLAZINE 500 MG TAB.ER.12H PO SCH ×2 (08:33→20:16)
[2020-04-12] MEDS: ISOSORBIDE MONONITRATE ER 60 MG TAB.ER.24H PO SCH ×2 (08:33→20:15)
[2020-04-12] MEDS: amLODIPine 2.5 MG TAB PO SCH (08:33)
[2020-04-12] MEDS: CLOPIDOGREL 75 MG TAB PO SCH (08:33)
[2020-04-12] MEDS: METOPROLOL TARTRATE 50 MG TAB PO SCH ×2 (08:33→20:15)
[2020-04-12] MEDS: SODIUM CHLORIDE 0.9% 1,000 ML IV SCH (08:34)
[2020-04-12] MEDS ORDERED: ASPIRIN 325 MG TAB PO SCH (09:00)
[2020-04-12 09:01] LABS: Basophils # (A) 0.02 X 10*3/uL (0.00-0.10); Basophils % (A) 0.3 %; Eosinophils # (A) 0.08 X 10*3/uL (0.04-0.35); Eosinophils % (A) 1.3 %; HCT 38.8 % (39.6-50.0); HGB 12.4 g/dL (13.0-17.0); Lymphocytes % (A) 36.3 %; MCH 29.2 pg (27.0-32.0); MCV 91.5 fL (80.0-97.0); Mean Platelet Volume 9.7 fL (9.5-12.2); Monocytes # (A) 0.55 X 10*3/uL (0.20-1.00); Monocytes % (A) 8.7 %; Neutrophils # (A) 3.35 X 10*3/uL (1.80-7.70); Neutrophils % (A) 52.9 %; Platelet Count 216 X 10*3/uL (140-440); RBC 4.24 X 10*6/uL (4.40-5.60); RDW 14.3 % (11.5-14.5); WBC 6.33 X 10*3/uL (4.50-10.00)
[2020-04-12 10:03] LABS: Chol/HDL Ratio 2.65
--- NOTE | 2020-04-12 10:51 | P.PN ---
Subjective Progress Note Date: 04/12/20 This is a 54-year-old gentleman patient of mc and Dr Jorgensen with history of CAD, CABG, previous CVA involving the occipital lobe,chronic tobacco use and cigar use, moderate alcohol consumption. His cardiac history are as follows:coronary artery disease multiple procedure including bypass grafting 2008 which is HOPKINS to the LAD and saphenous vein graft to the diagonal 1 saphenous vein graft to the diagonal 2 and saphenous vein graft to the obtuse marginal and right coronary artery. His last heart catheterization was in November 2017 at which time circumflex had a 60-70% lesion with fractional flow reserve of that lesion to be ischemic at 0.80. Mid left circumflex normal, left circumflex distally normal. LAD with mild disease, right coronary artery chronically occluded at the proximal portion and fills with collaterals from the left coronary system. The saphenous vein graft to the first diagonal, saphenous vein graft to the second diagonal, saphenous vein graft to the obtuse marginal were all patent. HOPKINS to LAD was atrophic and included in the midportion. Patient underwent drug-eluting stent to the proximal left circumflex. Patient was seen by Dr. Jorgensen about 2 weeks ago and he was scheduled to go for laboratory evaluation as well as a stress test scheduled to be done prior to his next appointment which would be in the summer, patient was doing fine he continues to struggle to lose weight, he has been doing fine otherwise, he had ravioli and breadsticks last night he went to bed around 12:00 woke up around 3:00 in the morning was coming of clammy sweat not feeling well nauseated had 3 Ren bowel movement and he was completely left-sided chest and the same time he ended up coming to the ER via EMS for evaluation, his laboratory evaluation were negative chest x-ray did not show any evidence of acute of normalities, because of the presentation and his a prior history was admitted to the hospital for evaluation by cardiology abdominal x-ray still pending. 04/12: Patient abdominal x-ray yesterday showed ileus underwent computed tomography scan of the abdomen and pelvis with oral contrast that showed evidence ecchymosis that evidence of diverticulitis, patient continued to have some abdominal distention, he continued to have some minimal rectal bleeding at his medicines yesterday, we will consult Dr. dunlap for evaluation he did have a colonoscopy I believe back in 2016 and he had hemorrhoid banding at that time, this is could be all related to that we will continue to monitor, patient has no chest pain today has no shortness breath at this time, he continued to be bloated, he ate his breakfast today he did not have any nausea or vomiting, is scheduled to go for a Lexiscan stress test tomorrow morning for evaluation of his chest pain that I believe its atypical. Objective - Vital Signs Vital signs: Vital Signs Temp 97.5 F L 04/12/20 07:00 Pulse 81 04/12/20 07:00 Resp 18 04/12/20 07:00 BP 111/76 04/12/20 07:00 Pulse Ox 98 04/12/20 07:00 Intake & Output 04/11/20 04/12/20 04/12/20 18:59 06:59 18:59 Intake Total 360 240 Balance 360 240 Weight 127.006 kg Intake: Oral 360 240 Other: Voiding Method Toilet Toilet # Voids 3 1 # Bowel Movements 2 1 - Exam Review of Systems Constitutional: Reports chronic pain, Reports weight gain, Denies anorexia, Denies lethargy, Denies weakness, Denies weight loss Eyes: denies blurred vision, denies bulging eye, denies decreased vision Ears: deny: decreased hearing Ears, nose, mouth and throat: Denies dysphagia, Denies neck lump, Denies sore throat Cardiovascular: Reports chest pain, Reports decreased exercise tolerance, Reports dyspnea on exertion, Reports shortness of breath, Denies lightheadedness , Denies syncope Gastrointestinal: Reports abdominal pain, Reports bloating, Reports diarrhea, Reports excessive gas, Reports indigestion, Reports nausea, Denies BRBPR, Denies change in bowel habits, Denies vomiting Genitourinary: Denies nocturia Musculoskeletal: Denies myalgias Musculoskeletal: absent: ankle pain, ankle stiffness, ankle swelling, elbow pain, elbow stiffness, elbow swelling, foot pain, foot stiffness, foot swelling, hand pain, hand stiffness, hand swelling, hip pain, hip stiffness, hip swelling, knee pain, knee stiffness, knee swelling, shoulder pain, shoulder stiffness, shoulder swelling, wrist pain, wrist stiffness, wrist swelling Integumentary: Denies pruritus, Denies rash Neurological: Denies numbness, Denies weakness Psychiatric: Denies anxiety, Denies depression Endocrine: Denies fatigue, Denies weight change Physical examination: HEENT: Head is atraumatic, normocephalic, pupils were equal round reactive to light and the clinician, extraocular muscles were intact, sclera nonicteric, conjunctivae without pallor, mucous membranes of the mouth are moist. Neck: Supple, no JVP, no lymphadenopathy. Chest: Decreased breath sounds at the bases, few rhonchi, no extremity wheezes, no chest wall tenderness, no intercostal retractions. Heart: First heart sound is depressed, second heart sounds normal, there is no gallop or murmur. Abdomen: Soft, obese, nonspecific tenderness, positive bowel sounds. Extremities: There is no edema, no calf tenderness, dorsalis pedis +2 bilaterally. Neurologic examination: Patient is awake alert and oriented 3, creatinine nerves II-12 appear grossly intact, muscle power 5 out of 5 in upper and lower extremities bilaterally. - Labs CBC & Chem 7: 04/12/20 05:45 04/11/20 04:37 Labs: Abnormal Lab Results - Last 24 Hours (Table) 04/11/20 04/11/20 04/11/20 Range/Units 12:07 17:20 19:39 RBC (4.40-5.60) X 10*6/uL Hgb (13.0-17.0) g/dL Hct (39.6-50.0) % POC Glucose (mg/dL) 146 H 126 H 144 H (75-99) mg/dL 04/12/20 04/12/20 Range/Units 05:45 07:22 RBC 4.24 L (4.40-5.60) X 10*6/uL Hgb 12.4 L (13.0-17.0) g/dL Hct 38.8 L (39.6-50.0) % POC Glucose (mg/dL) 125 H (75-99) mg/dL Assessment and Plan Assessment: Assessment and plan: 1. Chest pain likely noncardiac likely related to possible gastroenteritis . We will continue with IV fluid resuscitation, obtain abdominal x-ray, cardiac enzymes are negative 3, cardiology evaluation. 2. Possible gastroenteritis, continue IV fluid, abdominal x-ray showed an ileus this is followed by computed tomography scan of the abdomen and pelvis with contrast that showed evidence of diverticulosis without evidence of diverticulitis. 3. Rectal bleed likely related to hemorrhoids versus diverticular bleed. Consult Dr. dunlap from general surgery. 4. CAD with prior bypass surgery and percutaneous coronary interventions. Continue metoprolol at 50 mg orally twice every day, aspirin 81 mg daily, atorvastatin 80 mg at bedtime, Ranexa 100 mg orally twice every day, continue heparin drip for now, patient scheduled to go for left heart catheterization Monday morning. 5. COPD without exacerbation . Patient is in room air. 6. CKD stage II, nephrotoxins will be avoided, hypotension would be avoided, labs will be monitored 7. Ischemic cardiomyopathy with angina: With multiple coronary artery disease. We will continue patient on metoprolol 50 mg orally twice every day, lisinopril 10 mg orally once every day, Ranexa 500 mg orally twice every day and Imdur 60 mg orally twice every day. 8. Hypertension and hypertensive cardiovascular disease. metoprolol 50 mg twice a day, lisinopril 20 mg daily, Norvasc 2.5 mg daily. 9. Hyperlipidemia. On atorvastatin 80 mg daily. 10. Recurrent gastritis and GERD. Protonix 40 mg daily. 11. Chronic tobacco use. Smoking cessation 12. GI prophylaxis. We will continue with Protonix 40 mg orally once every day. 13. DVT prophylaxis. Heparin 5000 units subcutaneously every 8 hours. 14. Morbid obesity with BMI of 39.7 we will continue with diet and exercise and weight loss and total life style changes with risk factor modifications.
[2020-04-12 12:21] LABS: Glucose,Whole Blood 102 mg/dL (75-99)
--- NOTE | 2020-04-12 13:31 | P.PN ---
Subjective Progress Note Date: 04/12/20 HISTORY OF PRESENT ILLNESS: 04/11/2020 This is a 54-year-old male with a past medical history significant for diabetes mellitus, hypertension, hyperlipidemia, CVA, and coronary artery disease with previous CABG and stenting. Patient follows in the office with Dr Jorgensen. We have been asked to see the patient in consultation for chest pain. Patient reports he woke up around 3 AM with chest discomfort. He states this was on the left side of his chest and felt like a heavy pressure. He states the pain radiated down his left arm. He reports feeling nauseated. He reports diaphor esis. He denies any significant shortness of breath. He states the discomfort lasts until about 6 AM. He called EMS and was transported to the hospital. He reports receiving nitro and aspirin in route to the hospital which relieved his pain. The patient continues to report some mild nausea and chest discomfort this morning. He is currently rating his pain 1/10. The patient underwent cardiac catheterization in November [address] Santoyo revealing mild disease of the left main coronary artery, mild disease involving the left anterior descending artery. HOPKINS to LAD is atrophic because there is no obstructive disease in the LAD. Patent saphenous vein graft to the first and second diagonal branches of the LAD. Severe disease involving the proximal left circumflex coronary artery. Patent saphenous vein graft to OM branch of the left circumflex. Chronic total occlusion of the right coronary artery. Known occluded SVG to RCA which was documented from previous heart cath. Patient underwent successful stenting of the proximal left circumflex. Patient states he was hospitalized in March 2019 at [facility] and states he had a heart catheterization performed at that time with a stent placed. Patient is unsure which vessel was stented. EKG reveals sinus mechanism with T-wave inversions in lead 1, aVL, and V2 Chest xray no acute pulmonary process Laboratory data: WBC 8.1. Hemoglobin 14.3. Platelet count 235. Sodium 137. Potassium 4.7. BUN 29. Creatinine 1.30. Magnesium 1.7. Troponin negative 1. BNP 70. Current home cardiac medications include lisinopril 20 mg daily, amlodipine 2.5 mg daily, Ranexa 1000 g twice a day, metoprolol tartrate 50 mg twice a day, Imdur 60 mg twice a day, Plavix 75 mg daily, Lipitor 80 mg daily, and aspirin 81 mg daily 04/12/2020 Patient examined this morning at the bedside. Patient denies chest pain or p ressure. He denies shortness of breath. Troponins negative 3. IV heparin was discontinued yesterday. Echocardiogram completed revealed ejection fraction 55- 60%, trace mitral regurgitation, and trace tricuspid regurgitation. PHYSICAL EXAM: VITAL SIGNS: Reviewed. GENERAL: Well-developed in no acute distress. HEENT: Head is normocephalic. Pupils are equal, round. Sclerae anicteric. Mucous membranes of the mouth are moist. Neck supple. No JVD or thyromegaly LUNGS: Respirations even and unlabored. Lungs diminished bilaterally. HEART: Regular rate and rhythm. S1 and S2 heard. ABDOMEN: Soft. Nondistended. Nontender. EXTREMITIES: Normal range of motion. No clubbing or cyanosis. Peripheral pulses intact. No lower extremity edema NEUROLOGIC: Awake and alert. Oriented x 3. ASSESSMENT: Chest pain, troponins negative 3 Coronary artery disease with previous CABG and multivessel PCI Hypertension Hyperlipidemia Diabetes mellitus Chronic kidney disease History of CVA Anxiety Depression Nicotine dependence Morbid obesity PLAN: Continue current cardiac medications Continue telemetry monitoring Obtain records from [facility] tomorrow regarding cardiac catheterization and stenting in 2019 Patient to undergo Lexiscan stress test tomorrow Nurse practitioner note has been reviewed by physician. Signing provider agrees with the documented findings, assessment, and plan of care. Objective - Vital Signs Vital signs: Vital Signs Temp 97.5 F L 04/12/20 07:00 Pulse 81 04/12/20 07:00 Resp 18 04/12/20 07:00 BP 111/76 04/12/20 07:00 Pulse Ox 98 04/12/20 07:00 Intake & Output 04/11/20 04/12/20 04/12/20 18:59 06:59 18:59 Intake Total 360 240 Balance 360 240 Weight 127.006 kg Intake: Oral 360 240 Other: Voiding Method Toilet Toilet # Voids 3 1 # Bowel Movements 2 1 - Labs CBC & Chem 7: 04/12/20 05:45 04/11/20 04:37 Labs: Abnormal Lab Results - Last 24 Hours (Table) 04/11/20 04/11/20 04/11/20 Range/Units 13:00 17:20 19:39 RBC (4.40-5.60) X 10*6/uL Hgb (13.0-17.0) g/dL Hct (39.6-50.0) % POC Glucose (mg/dL) 126 H 144 H (75-99) mg/dL HDL Cholesterol (40.0-60.0) mg/dL Stool Occult Blood Positive A (Negative) 04/12/20 04/12/20 04/12/20 Range/Units 05:45 05:45 07:22 RBC 4.24 L (4.40-5.60) X 10*6/uL Hgb 12.4 L (13.0-17.0) g/dL Hct 38.8 L (39.6-50.0) % POC Glucose (mg/dL) 125 H (75-99) mg/dL HDL Cholesterol 34.0 L (40.0-60.0) mg/dL Stool Occult Blood (Negative) 04/12/20 Range/Units 12:19 RBC (4.40-5.60) X 10*6/uL Hgb (13.0-17.0) g/dL Hct (39.6-50.0) % POC Glucose (mg/dL) 102 H (75-99) mg/dL HDL Cholesterol (40.0-60.0) mg/dL Stool Occult Blood (Negative)
[2020-04-12 17:12] LABS: Glucose,Whole Blood 101 mg/dL (75-99)
--- NOTE | 2020-04-12 17:20 | P.GSCN ---
History of Present Illness Consult date: 04/12/20 Reason for Consult: Rectal bleeding History of present illness: Is a 54-year-old male undergoing workup of chest pain. Patient's disease had s ome rectal bleeding. He had a CAT scan performed yesterday shows evidence of diverticulosis. He states he has no significant abdominal pain currently. He denies any significant rectal bleeding he has been on IV heparin. 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 Last Myocardial Infarction Date:: 01-22-2011 History of Any Multi-Drug Resistant Organisms: None Reported Past Surgical History: Adenoidectomy, Cholecystectomy, Coronary Bypass/CABG, Heart Catheterization, Heart Catheterization With Stent, Hernia Repair Additional Past Surgical History / Comment(s): Several caths with last one done 11/23 treated medically, total 6 stents (states placed 01/2011, and 03/2019), CABG 5 vessel in 2008 (stents came after open heart was done), EGD/colonoscopy, hemorrhoid banding, umbilical hernia repair Past Anesthesia/Blood Transfusion Reactions: Previous Problems w/ Anesthesia Additional Past Anesthesia/Blood Transfusion Reaction / Comm: stated "wakes up slower than normal" Date of Last Stent Placement:: 03/2019 Past Psychological History: Anxiety, Depression Additional Psychological History / Comment(s): Pt states he has no current mental health disease. He states he had suicidal thoughts yrs ago at age 43, immediately following CABG in 2008 due to drastic lifestyle changes and being told he could no longer work. Patient currently lives with brother and niece. lives with brother and neice, does not work Smoking Status: Light tobacco smoker Past Alcohol Use History: Occasional Additional Past Alcohol Use History / Comment(s): started smoking age 15 never more than 1/2 ppd and later in life took up cigars (one per week at most). one cigar and glass of scotch/week Past Drug Use History: Marijuana Additional Drug Use History / Comment(s): as teenager into 20's occ, "seldom marijuana" - Past Family History Father Family Medical History: Coronary Artery Disease (CAD) Additional Family Medical History / Comment(s): dad is 75. stents, bypass, prostate and lung cancer. Mother Additional Family Medical History / Comment(s): mom 1997 at age 59- brain aneurysm Medications and Allergies Home Medications Medication Instructions Recorded Confirmed Type Atorvastatin [Lipitor] 80 mg PO HS 06/25/13 04/11/20 History Metoprolol Tartrate [Lopressor] 50 mg PO BID 06/25/13 04/11/20 History Nitroglycerin Sl Tabs [Nitrostat] 0.4 mg SUBLINGUAL Q5M PRN 06/25/13 04/11/20 History Ranolazine [Ranexa] 1,000 mg PO BID 09/23/13 04/11/20 History Pantoprazole Sodium [Protonix] 40 mg PO DAILY 07/02/14 04/11/20 History Isosorbide Mononitrate ER [Imdur] 60 mg PO BID 10/13/15 04/11/20 History Aspirin [Adult Low Dose Aspirin EC] 81 mg PO HS 01/11/16 04/11/20 History amLODIPine [Norvasc] 2.5 mg PO DAILY 09/26/17 04/11/20 History lisinopriL [Zestril] 20 mg PO DAILY 09/26/17 04/11/20 History metFORMIN HCL [Glucophage] 500 mg PO BID #0 11/27/17 04/11/20 Rx Clopidogrel Bisulfate [Plavix] 75 mg PO DAILY 10/15/18 04/11/20 History ALPRAZolam [Xanax] 0.25 mg PO BID PRN 04/11/20 04/11/20 History HYDROcodone/APAP 5-325MG [Cayucos 1 tab PO DAILY PRN 04/11/20 04/11/20 History 5-325] Allergies Allergy/AdvReac Type Severity Reaction Status Date / Time chocolate flavor Allergy Rash/Hives Verified 04/11/20 07:52 Terrell And Derivatives Allergy Rash/Hives Verified 04/11/20 07:52 [Terrell] Surgical - Exam Vital Signs Pulse Resp BP Pulse Ox 94 18 136/101 96 04/11/20 04:11 04/11/20 04:11 04/11/20 04:11 04/11/20 04:11 - General well developed, well nourished, no distress - Eyes PERRL - ENT normal pinna - Neck no masses - Respiratory normal expansion - Cardiovascular Rhythm: regular - Abdomen Abdomen: soft, non tender Results - Labs 04/12/20 05:45 04/11/20 04:37 Abnormal Lab Results - Last 24 Hours (Table) 04/11/20 04/11/20 04/11/20 Range/Units 13:00 17:20 19:39 RBC (4.40-5.60) X 10*6/uL Hgb (13.0-17.0) g/dL Hct (39.6-50.0) % POC Glucose (mg/dL) 126 H 144 H (75-99) mg/dL HDL Cholesterol (40.0-60.0) mg/dL Stool Occult Blood Positive A (Negative) 04/12/20 04/12/20 04/12/20 Range/Units 05:45 05:45 07:22 RBC 4.24 L (4.40-5.60) X 10*6/uL Hgb 12.4 L (13.0-17.0) g/dL Hct 38.8 L (39.6-50.0) % POC Glucose (mg/dL) 125 H (75-99) mg/dL HDL Cholesterol 34.0 L (40.0-60.0) mg/dL Stool Occult Blood (Negative) 04/12/20 04/12/20 Range/Units 12:19 17:10 RBC (4.40-5.60) X 10*6/uL Hgb (13.0-17.0) g/dL Hct (39.6-50.0) % POC Glucose (mg/dL) 102 H 101 H (75-99) mg/dL HDL Cholesterol (40.0-60.0) mg/dL Stool Occult Blood (Negative) Diabetes panel 04/12/20 Range/Units 05:45 Triglycerides 65.0 (0.0-149.0) mg/dL HDL Cholesterol 34.0 L (40.0-60.0) mg/dL Assessment and Plan Assessment: History of chest pain. Patient undergoing cardiac workup. His IV heparin has been stopped. His rectal bleeding is very minimal. Patient most likely will be observed. Dr. Ny will reevaluate the patient tomorrow.
[2020-04-12 19:55] LABS: Glucose,Whole Blood 166 mg/dL (75-99)
[2020-04-12] MEDS: ASPIRIN 81 MG PO SCH (20:14)
[2020-04-12] MEDS: ATORVASTATIN 80 MG TAB PO SCH (20:15)
[2020-04-13 06:38] LABS: Glucose,Whole Blood 100 mg/dL (75-99)
[2020-04-13] MEDS ORDERED: CAFFEINE CITRATE 60 MG/3 ML VIAL IV PRN (08:00)
[2020-04-13] MEDS ORDERED: REGADENOSON 0.4 MG/5 ML SYRINGE IV PRN (08:00)
[2020-04-13] MEDS ORDERED: AMINOPHYLLINE 500 MG/20 ML VIAL IV PRN (08:00)
[2020-04-13] MEDS: INSULIN ASPART (NovoLOG) 100 UNIT/ML VIAL SQ SCH ×3 (09:00→17:42)
[2020-04-13 09:03] LABS: Basophils # (A) 0.02 X 10*3/uL (0.00-0.10); Basophils % (A) 0.3 %; Eosinophils # (A) 0.07 X 10*3/uL (0.04-0.35); HCT 39.9 % (39.6-50.0); HGB 12.5 g/dL (13.0-17.0); Lymphocytes % (A) 30.6 %; MCH 28.8 pg (27.0-32.0); MCHC 31.3 g/dL (32.0-37.0); MCV 91.9 fL (80.0-97.0); Mean Platelet Volume 9.7 fL (9.5-12.2); Monocytes # (A) 0.54 X 10*3/uL (0.20-1.00); Monocytes % (A) 7.9 %; Neutrophils % (A) 59.8 %; Platelet Count 223 X 10*3/uL (140-440); RBC 4.34 X 10*6/uL (4.40-5.60); RDW 14.1 % (11.5-14.5); WBC 6.86 X 10*3/uL (4.50-10.00)
[2020-04-13 09:35] LABS: African American GFR (CKD) 72.2 (60.0-200.0); Albumin 3.9 g/dL (3.80-4.90); Albumin/Globulin Ratio 2.05 (1.60-3.17); Anion Gap 6.3 mmol/L (4.00-12.00); BUN/Creat Ratio 11.54 Ratio (12.00-20.00); Calcium 8.6 mg/dL (8.7-10.3); Carbon Dioxide 26.7 mmol/L (21.6-31.8); Globulin 1.9 g/dL (1.6-3.3); Non-African American GFR(CKD) 62.3 (60.0-200.0); Potassium 4.7 mmol/L (3.5-5.5); Total Bilirubin 0.7 mg/dL (0.3-1.2); Total Protein 5.8 g/dL (6.2-8.2)
--- NOTE | 2020-04-13 11:19 | EST ---
EXERCISE STRESS AGE: 54 SEX: Male HT: 5'11" WT: 280 lbs. PROTOCOL: Lexiscan Cardiolite STAGE: N/A DURATION OF EXERCISE: N/A HEART RATE REST: 75 BLOOD PRESSURE REST: 121/90 MAXIMUM HEART RATE ACHIEVED: 94 MAXIMUM BLOOD PRESSURE: 136/90 85% MPHR: 142 100% MPHR: 167 METS: N/A INDICATIONS: Chest pain CLINICAL INFORMATION: Baseline rhythm is sinus mechanism, rate 75, normal axis and intervals, minor nonspecific ST-T wave changes. Baseline blood pressure 121/90 mmHg. Patient received injection of Lexiscan. Electrocardiograph monitoring revealed no evidence of diagnostic ischemic ST deviation. Occasional PVCs were noted. CONCLUSION: 1. Nondiagnostic electrocardiograph stress testing with occasional PVCs. 2. Nuclear images will be reported separately. MMODL / IJN: [id number] /
--- NOTE | 2020-04-13 11:27 | P.PN ---
Subjective This is a pleasant 54-year-old male past medical history significant for coronary artery disease status post bypass grafting and subsequent PCI, CVA, hypertension, dyslipidemia and diabetes mellitus. He follows in the office with Dr. Jorgensen. He continues to have intermittent episodes of chest discomfort. He states the pain is sharp in the left precordial region. He denies shortness of breath, dizziness or palpitations. Blood pressure 116/78 heart rate 70 afebrile maintaining oxygen saturation on room air. Laboratory data reviewed, WBC 6.8, hemoglobin 12.5, platelets 223, sodium 139, potassium 4.7, creatinine 1.3. Currently maintained on amlodipine 2.5 mg daily, aspirin 81 mg daily, atorvastatin 80 mg daily, Plavix 75 mg daily, Imdur 60 mg twice a day, lisinopril 20 mg daily, Lopressor 50 mg twice a day and Lanoxin 1000 mg twice a day. Catheterization report reviewed from [facility] that was performed March 2019 revealing left main widely patent, [place] circumflex with severe in-stent restenosis in the proximal portion, LAD patent, RCA is occluded, graft to the right is occluded, graft to the diagonal is patent, graft to the OM is patent with a 50% ostial stenosis. At that time he underwent successful PCI of the [place] circumflex stent. Echocardiogram obtained on this admission reveals preserved LV systolic function with ejection fraction 55-60%. GENERAL: Well-appearing, well-nourished and in no acute distress. NECK: Supple without JVD or thyromegaly. LUNGS: Breath sounds clear to auscultation bilaterally. Respiration equal and unlabored. No wheezes, rales or rhonchi. HEART: Regular rate and rhythm without murmurs, rubs or gallops. S1 and S2 heard. EXTREMITIES: Normal range of motion, no edema. No clubbing or cyanosis. Peripheral pulses intact. ASSESSMENT Chest pain Coronary artery disease s/p bypass grafting and PCI of [place] circumflex Hypertension Dyslipidemia Diabetes mellitus Chronic kidney disease Nicotine dependence Morbid obesity, BMI 39 PLAN Proceed with stress test as previously ordered. If stress test is normal, he is stable for discharge from a cardiac perspective. Also his plavix can be discontinued if stress test is normal as his PCI was over 12 months ago. Continue aspirin 81 mg daily. Smoking cessation recommended. Nurse Practitioner note has been reviewed, I agree with a documented findings and plan of care. Patient was seen and examined. Objective - Vital Signs Vital signs: Vital Signs Temp 97.4 F L 04/13/20 07:00 Pulse 70 04/13/20 07:00 Resp 16 04/13/20 07:00 BP 116/78 04/13/20 07:00 Pulse Ox 96 04/13/20 07:00 Intake & Output 04/12/20 04/13/20 04/13/20 18:59 06:59 18:59 Intake Total 720 540 Balance 720 540 Weight 127.01 kg Intake: Oral 720 540 Other: Voiding Method Toilet Toilet # Voids 3 1 - Labs CBC & Chem 7: 04/13/20 05:29 04/13/20 05:29 Labs: Abnormal Lab Results - Last 24 Hours (Table) 04/11/20 04/12/20 04/12/20 Range/Units 13:00 12:19 17:10 RBC (4.40-5.60) X 10*6/uL Hgb (13.0-17.0) g/dL MCHC (32.0-37.0) g/dL BUN/Creatinine Ratio (12.00-20.00) Ratio POC Glucose (mg/dL) 102 H 101 H (75-99) mg/dL Calcium (8.7-10.3) mg/dL Total Protein (6.2-8.2) g/dL Stool Occult Blood Positive A (Negative) 04/12/20 04/13/20 04/13/20 Range/Units 19:54 05:29 05:29 RBC 4.34 L (4.40-5.60) X 10*6/uL Hgb 12.5 L (13.0-17.0) g/dL MCHC 31.3 L (32.0-37.0) g/dL BUN/Creatinine Ratio 11.54 L (12.00-20.00) Ratio POC Glucose (mg/dL) 166 H (75-99) mg/dL Calcium 8.6 L (8.7-10.3) mg/dL Total Protein 5.8 L (6.2-8.2) g/dL Stool Occult Blood (Negative) 04/13/20 Range/Units 06:37 RBC (4.40-5.60) X 10*6/uL Hgb (13.0-17.0) g/dL MCHC (32.0-37.0) g/dL BUN/Creatinine Ratio (12.00-20.00) Ratio POC Glucose (mg/dL) 100 H (75-99) mg/dL Calcium (8.7-10.3) mg/dL Total Protein (6.2-8.2) g/dL Stool Occult Blood (Negative)
[2020-04-13 11:43] LABS: Glucose,Whole Blood 97 mg/dL (75-99)
[2020-04-13] MEDS: SODIUM CHLORIDE 0.9% 1,000 ML IV SCH (12:42)
[2020-04-13] MEDS: ISOSORBIDE MONONITRATE ER 60 MG TAB.ER.24H PO SCH ×2 (12:50→19:58)
[2020-04-13] MEDS: lisinopriL 20 MG TAB PO SCH (12:51)
[2020-04-13] MEDS: METOPROLOL TARTRATE 50 MG TAB PO SCH ×2 (12:51→19:58)
[2020-04-13] MEDS: amLODIPine 2.5 MG TAB PO SCH (12:51)
[2020-04-13] MEDS: PANTOPRAZOLE 40 MG TABLET PO SCH (12:51)
[2020-04-13] MEDS: RANOLAZINE 500 MG TAB.ER.12H PO SCH ×2 (12:51→19:59)
[2020-04-13] MEDS: CLOPIDOGREL 75 MG TAB PO SCH (12:51)
--- NOTE | 2020-04-13 13:24 | NM ---
EXAMINATION TYPE: NM stress lexiscan cardiolite DATE OF EXAM: 04/13/2020 COMPARISON: 06/06/2016 HISTORY: 54-year-old male with chest pain TECHNIQUE: After the intravenous administration of 10.3 mCi Tc 99m Sestamibi - Cardiolite resting SP ECT images acquired 45 minutes post injection. The patient received 0.4mg Lexiscan, 25.5 mCi Tc 99m Sestamibi - Stress images obtained [address] injection FINDINGS: Review of stress and rest SPECT images demonstrates fixed perfusion defect at the anterior apex which accentuates on stress. Additional reversibility along the mid inferolateral wall. Gated analysis terry estimated left ventricular ejection fraction of 57 %. TID is calculated at 1.06, upper normal. IMPRESSION: Findings suggest old apical infarct but with suspected mild vernon-infarct ischemia. Additional suspici ous reversibility seen along the mid inferolateral wall.
--- NOTE | 2020-04-13 14:51 | P.PN ---
Subjective Progress Note Date: 04/13/20 This is a 54-year-old gentleman patient of mc and Dr Jorgensen with history of CAD, CABG, previous CVA involving the occipital lobe,chronic tobacco use and cigar use, moderate alcohol consumption. His cardiac history are as follows:coronary artery disease multiple procedure including bypass grafting 2008 which is HOPKINS to the LAD and saphenous vein graft to the diagonal 1 saphenous vein graft to the diagonal 2 and saphenous vein graft to the obtuse marginal and right coronary artery. His last heart catheterization was in November 2017 at which time circumflex had a 60-70% lesion with fractional flow reserve of that lesion to be ischemic at 0.80. Mid left circumflex normal, left circumflex distally normal. LAD with mild disease, right coronary artery chronically occluded at the proximal portion and fills with collaterals from the left coronary system. The saphenous vein graft to the first diagonal, saphenous vein graft to the second diagonal, saphenous vein graft to the obtuse marginal were all patent. H[place]INS to LAD was atrophic and included in the midportion. Patient underwent drug-eluting stent to the proximal left circumflex. Patient was seen by Dr. Jorgensen about 2 weeks ago and he was scheduled to go for laboratory evaluation as well as a stress test scheduled to be done prior to his next appointment which would be in the summer, patient was doing fine he continues to struggle to lose weight, he has been doing fine otherwise, he had ravioli and breadsticks last night he went to bed around 12:00 woke up around 3:00 in the morning was coming of clammy sweat not feeling well nauseated had 3 Ren bowel movement and he was completely left-sided chest and the same time he ended up coming to the ER via EMS for evaluation, his laboratory evaluation were negative chest x-ray did not show any evidence of acute of normalities, because of the presentation and his a prior history was admitted to the hospital for evaluation by cardiology abdominal x-ray still pending. 04/12: Patient abdominal x-ray yesterday showed ileus underwent computed tomography scan of the abdomen and pelvis with oral contrast that showed evidence ecchymosis that evidence of diverticulitis, patient continued to have some abdominal distention, he continued to have some minimal rectal bleeding at his medicines yesterday, we will consult Dr. dunlap for evaluation he did have a colonoscopy I believe back in 2016 and he had hemorrhoid banding at that time, this is could be all related to that we will continue to monitor, patient has no chest pain today has no shortness breath at this time, he continued to be bloated, he ate his breakfast today he did not have any nausea or vomiting, is scheduled to go for a Lexiscan stress test tomorrow morning for evaluation of his chest pain that I believe its atypical. 04/13: Lexiscan stress test revealed old apical infarct but suspected mild vernon- infarct ischemia. Additional suspicious reversibility seen along the mid inferior lateral wall. Patient is now scheduled for heart catheterization tomorrow with Dr. Jorgensen. He has been afebrile, heart rate 70, blood pressure 116/78, pulse ox 96% on room air. Hemoglobin 12.5. Electrolytes normal, creatinine 1.3. Blood sugars running between 100-166. Objective - Vital Signs Vital signs: Vital Signs Temp 97.4 F L 04/13/20 07:00 Pulse 70 04/13/20 07:00 Resp 16 04/13/20 07:00 BP 116/78 04/13/20 07:00 Pulse Ox 96 04/13/20 07:00 Intake & Output 04/12/20 04/13/20 04/13/20 18:59 06:59 18:59 Intake Total 720 540 Balance 720 540 Weight 127.01 kg Intake: Oral 720 540 Other: Voiding Method Toilet Toilet # Voids 3 1 - Exam Review of Systems Constitutional: Reports chronic pain, Reports weight gain, Denies anorexia, Denies lethargy, Denies weakness, Denies weight loss Eyes: denies blurred vision, denies bulging eye, denies decreased vision Ears: deny: decreased hearing Ears, nose, mouth and throat: Denies dysphagia, Denies neck lump, Denies sore throat Cardiovascular: Reports chest pain, Reports decreased exercise tolerance, Reports dyspnea on exertion, Reports shortness of breath, Denies lighthe adedness, Denies syncope Gastrointestinal: Reports abdominal pain, Reports bloating, Reports diarrhea, Reports excessive gas, Reports indigestion, Reports nausea, Denies BRBPR, Denies change in bowel habits, Denies vomiting Genitourinary: Denies nocturia Musculoskeletal: Denies myalgias Musculoskeletal: absent: ankle pain, ankle stiffness, ankle swelling, elbow pain, elbow stiffness, elbow swelling, foot pain, foot stiffness, foot swelling, hand pain, hand stiffness, hand swelling, hip pain, hip stiffness, hip swelling, knee pain, knee stiffness, knee swelling, shoulder pain, shoulder stiffness, shoulder swelling, wrist pain, wrist stiffness, wrist swelling Integumentary: Denies pruritus, Denies rash Neurological: Denies numbness, Denies weakness Psychiatric: Denies anxiety, Denies depression Endocrine: Denies fatigue, Denies weight change Physical examination: HEENT: Head is atraumatic, normocephalic, pupils were equal round reactive to light and the clinician, extraocular muscles were intact, sclera nonicteric, conjunctivae without pallor, mucous membranes of the mouth are moist. Neck: Supple, no JVP, no lymphadenopathy. Chest: Decreased breath sounds at the bases, few rhonchi, no extremity wheezes, no chest wall tenderness, no intercostal retractions. Heart: First heart sound is depressed, second heart sounds normal, there is no gallop or murmur. Abdomen: Soft, obese, nonspecific tenderness, positive bowel sounds. Extremities: There is no edema, no calf tenderness, dorsalis pedis +2 bilaterally. Neurologic examination: Patient is awake alert and oriented 3, creatinine nerves II-12 appear grossly intact, muscle power 5 out of 5 in upper and lower extremities bilaterally. - Labs CBC & Chem 7: 04/13/20 05:29 04/13/20 05:29 Labs: Abnormal Lab Results - Last 24 Hours (Table) 04/12/20 04/12/20 04/13/20 Range/Units 17:10 19:54 05:29 RBC 4.34 L (4.40-5.60) X 10*6/uL Hgb 12.5 L (13.0-17.0) g/dL MCHC 31.3 L (32.0-37.0) g/dL BUN/Creatinine Ratio (12.00-20.00) Ratio POC Glucose (mg/dL) 101 H 166 H (75-99) mg/dL Calcium (8.7-10.3) mg/dL Total Protein (6.2-8.2) g/dL 04/13/20 04/13/20 Range/Units 05:29 06:37 RBC (4.40-5.60) X 10*6/uL Hgb (13.0-17.0) g/dL MCHC (32.0-37.0) g/dL BUN/Creatinine Ratio 11.54 L (12.00-20.00) Ratio POC Glucose (mg/dL) 100 H (75-99) mg/dL Calcium 8.6 L (8.7-10.3) mg/dL Total Protein 5.8 L (6.2-8.2) g/dL Assessment and Plan Plan: 1. Chest pain likely noncardiac likely related to possible gastroenteritis but rule out coronary artery disease progression. Cardiology consult appreciated. Patient is scheduled for heart catheterization tomorrow with Dr. Jorgensen. 2. Possible gastroenteritis, continue IV fluid, abdominal x-ray showed an ileus this is followed by computed tomography scan of the abdomen and pelvis with contrast that showed evidence of diverticulosis without evidence of diverticulitis. 3. Rectal bleed likely related to hemorrhoids versus diverticular bleed. Consult Dr. Cardona from general surgery. 4. CAD with prior bypass surgery and percutaneous coronary interventions. Continue metoprolol at 50 mg orally twice every day, aspirin 81 mg daily, atorvastatin 80 mg at bedtime, Ranexa 100 mg orally twice every day, continue heparin drip for now, patient scheduled to go for left heart catheterization Monday morning. 5. COPD without exacerbation . Patient is in room air. 6. CKD stage II, nephrotoxins will be avoided, hypotension would be avoided, labs will be monitored 7. Ischemic cardiomyopathy with angina: With multiple coronary artery disease. We will continue patient on metoprolol 50 mg orally twice every day, lisinopril 10 mg orally once every day, Ranexa 500 mg orally twice every day and Imdur 60 mg orally twice every day. 8. Hypertension and hypertensive cardiovascular disease. metoprolol 50 mg twice a day, lisinopril 20 mg daily, Norvasc 2.5 mg daily. 9. Hyperlipidemia. On atorvastatin 80 mg daily. 10. Recurrent gastritis and GERD. Protonix 40 mg daily. 11. Chronic tobacco use. Smoking cessation 12. GI prophylaxis. We will continue with Protonix 40 mg orally once every day. 13. DVT prophylaxis. Heparin 5000 units subcutaneously every 8 hours. 14. Morbid obesity with BMI of 39.7 we will continue with diet and exercise and weight loss and total life style changes with risk factor modifications. Discharge plan: Home Impression and plan of care have been directed as dictated by the signing physician. Karissa Moncada nurse practitioner acting as scribe for signing physician.
[2020-04-13] MEDS ORDERED: SODIUM CHLORIDE 0.9% 1,000 ML in EMPTY BAG 1 BAG IV ONE (15:13)
--- NOTE | 2020-04-13 16:07 | P.PN ---
Subjective Progress Note Date: 04/13/20 Principal diagnosis: Rectal bleeding Patient minute to the hospital with rectal bleeding. No rectal pain. Also having some cardiac symptoms. Admits to intermittent episodes of bright red blood per rectum particularly when wiping occasionally. History of known hemorrhoids. Last hemorrhoidal banding 2014. Last colonoscopy showing mild proctitis 2017. Underwent stress test today. Plans for cardiac catheterization tomorrow. No significant bleeding during this hospital stay. Objective - Vital Signs Vital signs: Vital Signs Temp 97.6 F 04/13/20 15:00 Pulse 73 04/13/20 15:00 Resp 16 04/13/20 15:00 BP 133/90 04/13/20 15:00 Pulse Ox 96 04/13/20 15:00 Intake & Output 04/12/20 04/13/20 04/13/20 18:59 06:59 18:59 Intake Total 720 540 Balance 720 540 Weight 127.01 kg Intake: Oral 720 540 Other: Voiding Method Toilet Toilet # Voids 3 1 1 - Exam Abdomen: Soft, nontender, nondistended - Labs CBC & Chem 7: 04/13/20 05:29 04/13/20 05:29 Labs: Abnormal Lab Results - Last 24 Hours (Table) 04/12/20 04/12/20 04/13/20 Range/Units 17:10 19:54 05:29 RBC 4.34 L (4.40-5.60) X 10*6/uL Hgb 12.5 L (13.0-17.0) g/dL MCHC 31.3 L (32.0-37.0) g/dL BUN/Creatinine Ratio (12.00-20.00) Ratio POC Glucose (mg/dL) 101 H 166 H (75-99) mg/dL Calcium (8.7-10.3) mg/dL Total Protein (6.2-8.2) g/dL 04/13/20 04/13/20 Range/Units 05:29 06:37 RBC (4.40-5.60) X 10*6/uL Hgb (13.0-17.0) g/dL MCHC (32.0-37.0) g/dL BUN/Creatinine Ratio 11.54 L (12.00-20.00) Ratio POC Glucose (mg/dL) 100 H (75-99) mg/dL Calcium 8.6 L (8.7-10.3) mg/dL Total Protein 5.8 L (6.2-8.2) g/dL Assessment and Plan (1) Rectal bleeding Narrative/Plan: Patient going for cardiac catheterization tomorrow. Continue to monitor for active bleeding. We'll perform bedside rectal examination. Short-term follow- up colonoscopy with possible hemorrhoidal banding may be necessary. Current Visit: No Status: Acute Code(s): K62.5 - HEMORRHAGE OF ANUS AND RECTUM SNOMED Code(s): 88432014
[2020-04-13 16:59] LABS: Glucose,Whole Blood 132 mg/dL (75-99)
[2020-04-13] MEDS: ATORVASTATIN 80 MG TAB PO SCH (19:58)
[2020-04-13] MEDS: ASPIRIN 81 MG PO SCH (19:58)
[2020-04-13 20:28] LABS: Glucose,Whole Blood 103 mg/dL (75-99)
[2020-04-14] MEDS ORDERED: ASPIRIN 325 MG TAB PO ONE (06:00)
[2020-04-14 06:13] LABS: Glucose,Whole Blood 109 mg/dL (75-99)
[2020-04-14] MEDS: INSULIN ASPART (NovoLOG) 100 UNIT/ML VIAL SQ SCH ×3 (06:41→17:15)
[2020-04-14] MEDS: lisinopriL 20 MG TAB PO SCH (06:42)
[2020-04-14] MEDS: amLODIPine 2.5 MG TAB PO SCH (06:42)
[2020-04-14] MEDS: METOPROLOL TARTRATE 50 MG TAB PO SCH ×2 (06:42→20:18)
[2020-04-14] MEDS: RANOLAZINE 500 MG TAB.ER.12H PO SCH ×2 (06:42→20:18)
[2020-04-14] MEDS: PANTOPRAZOLE 40 MG TABLET PO SCH (06:42)
[2020-04-14] MEDS: ISOSORBIDE MONONITRATE ER 60 MG TAB.ER.24H PO SCH ×2 (06:42→20:18)
[2020-04-14] MEDS: SODIUM CHLORIDE 0.9% 1,000 ML IV SCH ×2 (06:45→17:17)
[2020-04-14] MEDS: CLOPIDOGREL 75 MG TAB PO SCH (06:45)
[2020-04-14] MEDS ORDERED: HEPARIN SODIUM,PORCINE 10,000 UNIT in SODIUM CHLORIDE 0.9% 1,000 ML IRRIGATION PRN (07:00)
[2020-04-14] MEDS ORDERED: HEPARIN SODIUM,PORCINE 2,500 UNIT in SODIUM CHLORIDE 0.9% 250 ML IRRIGATION PRN (07:00)
[2020-04-14 09:01] LABS: Basophils % (A) 0 %; Eosinophils # (A) 0.1 k/uL (0-0.7); Eosinophils % (A) 1 %; HCT 38.9 % (39.0-53.0); HGB 12.6 gm/dL (13.0-17.5); Lymphocytes # (A) 1.7 k/uL (1.0-4.8); Lymphocytes % (A) 31 %; MCH 29.2 pg (25.0-35.0); MCHC 32.4 g/dL (31.0-37.0); MCV 90.3 fL (80.0-100.0); Mean Platelet Volume 7.1; Monocytes # (A) 0.3 k/uL (0-1.0); Monocytes % (A) 6 %; Neutrophils # (A) 3.3 k/uL (1.3-7.7); Neutrophils % (A) 60 %; Platelet Count 216 k/uL (150-450); WBC 5.5 k/uL (3.8-10.6)
[2020-04-14 10:45] LABS: Glucose,Whole Blood 106 mg/dL (75-99)
[2020-04-14 11:49] LABS: Glucose,Whole Blood 109 mg/dL (75-99)
--- NOTE | 2020-04-14 11:54 | P.PN ---
Subjective Progress Note Date: 04/14/20 This is a 54-year-old gentleman patient of mc and Dr Jorgensen with history of CAD, CABG, previous CVA involving the occipital lobe,chronic tobacco use and cigar use, moderate alcohol consumption. His cardiac history are as follows:coronary artery disease multiple procedure including bypass grafting 2008 which is HOPKINS to the LAD and saphenous vein graft to the diagonal 1 saphenous vein graft to the diagonal 2 and saphenous vein graft to the obtuse marginal and right coronary artery. His last heart catheterization was in November 2017 at which time circumflex had a 60-70% lesion with fractional flow reserve of that lesion to be ischemic at 0.80. Mid left circumflex normal, left circumflex distally normal. LAD with mild disease, right coronary artery chronically occluded at the proximal portion and fills with collaterals from the left coronary system. The saphenous vein graft to the first diagonal, saphenous vein graft to the second diagonal, saphenous vein graft to the obtuse marginal were all patent. HOPKINS to LAD was atrophic and included in the midportion. Patient underwent drug-eluting stent to the proximal left circumflex. Patient was seen by Dr. Jorgensen about 2 weeks ago and he was scheduled to go for laboratory evaluation as well as a stress test scheduled to be done prior to his next appointment which would be in the summer, patient was doing fine he continues to struggle to lose weight, he has been doing fine otherwise, he had ravioli and breadsticks last night he went to bed around 12:00 woke up around 3:00 in the morning was coming of clammy sweat not feeling well nauseated had 3 Ren bowel movement and he was completely left-sided chest and the same time he ended up coming to the ER via EMS for evaluation, his laboratory evaluation were negative chest x-ray did not show any evidence of acute of normalities, because of the presentation and his a prior history was admitted to the hospital for evaluation by cardiology abdominal x-ray still pending. 04/12: Patient abdominal x-ray yesterday showed ileus underwent computed tomography scan of the abdomen and pelvis with oral contrast that showed evidence ecchymosis that evidence of diverticulitis, patient continued to have some abdominal distention, he continued to have some minimal rectal bleeding at his medicines yesterday, we will consult Dr. dunlap for evaluation he did have a colonoscopy I believe back in 2016 and he had hemorrhoid banding at that time, this is could be all related to that we will continue to monitor, patient has no chest pain today has no shortness breath at this time, he continued to be bloated, he ate his breakfast today he did not have any nausea or vomiting, is scheduled to go for a Lexiscan stress test tomorrow morning for evaluation of his chest pain that I believe its atypical. 04/13: Lexiscan stress test revealed old apical infarct but suspected mild vernon- infarct ischemia. Additional suspicious reversibility seen along the mid inferior lateral wall. Patient is now scheduled for heart catheterization tomorrow with Dr. Jorgensen. He has been afebrile, heart rate 70, blood pressure 116/78, pulse ox 96% on room air. Hemoglobin 12.5. Electrolytes normal, creatinine 1.3. Blood sugars running between 100-166. 04/14: The patient denies having any chest pain. He states he is a little anxious to have the heart catheterization which is scheduled today. He is an add on and expected to be scheduled later in the day. He states that he had a little bit of blood in his stool last night. He has been afebrile, heart rate 64, blood pressure 130/87, pulse ox 96% on room air. Blood sugars are running between 97 and 32. Hemoglobin 12.6. Discussed with patient need for weight loss. Objective - Vital Signs Vital signs: Vital Signs Temp 97.9 F 04/14/20 03:30 Pulse 64 04/14/20 03:30 Resp 18 04/14/20 03:30 BP 138/87 04/14/20 06:40 Pulse Ox 96 04/14/20 03:30 Intake & Output 04/13/20 04/14/20 04/14/20 18:59 06:59 18:59 Intake Total 240 240 Output Total 1175 Balance 240 -935 Weight 127.01 kg 130.6 kg Intake: Oral 240 240 Output: Urine 1175 Other: Voiding Method Toilet # Voids 1 1 - Exam Review of Systems Constitutional: Reports chronic pain, Reports weight gain, Denies anorexia, Denies lethargy, Denies weakness, Denies weight loss Eyes: denies blurred vision, denies bulging eye, denies decreased vision Ears: deny: decreased hearing Ears, nose, mouth and throat: Denies dysphagia, Denies neck lump, Denies sore throat Cardiovascular: Reports chest pain, Reports decreased exercise tolerance, Reports dyspnea on exertion, Reports shortness of breath, Denies lightheadedness, Denies syncope Gastrointestinal: Reports abdominal pain, Reports bloating, Reports diarrhea, Reports excessive gas, Reports indigestion, Reports nausea, Denies BRBPR, Denies change in bowel habits, Denies vomiting Genitourinary: Denies nocturia Musculoskeletal: Denies myalgias Musculoskeletal: absent: ankle pain, ankle stiffness, ankle swelling, elbow pain, elbow stiffness, elbow swelling, foot pain, foot stiffness, foot swelling, hand pain, hand stiffness, hand swelling, hip pain, hip stiffness, hip swelling, knee pain, knee stiffness, knee swelling, shoulder pain, shoulder stiffness, shoulder swelling, wrist pain, wrist stiffness, wrist swelling Integumentary: Denies pruritus, Denies rash Neurological: Denies numbness, Denies weakness Psychiatric: Denies anxiety, Denies depression Endocrine: Denies fatigue, Denies weight change Physical examination: HEENT: Head is atraumatic, normocephalic, pupils were equal round reactive to light and the clinician, extraocular muscles were intact, sclera nonicteric, conjunctivae without pallor, mucous membranes of the mouth are moist. Neck: Supple, no JVP, no lymphadenopathy. Chest: Decreased breath sounds at the bases, few rhonchi, no extremity wheezes, no chest wall tenderness, no intercostal retractions. Heart: First heart sound is depressed, second heart sounds normal, there is no gallop or murmur. Abdomen: Soft, obese, nonspecific tenderness, positive bowel sounds. Extremities: There is no edema, no calf tenderness, dorsalis pedis +2 bilaterally. Neurologic examination: Patient is awake alert and oriented 3, creatinine nerves II-12 appear grossly intact, muscle power 5 out of 5 in upper and lower extremities bilaterally. - Labs CBC & Chem 7: 04/14/20 06:45 04/13/20 05:29 Labs: Abnormal Lab Results - Last 24 Hours (Table) 04/13/20 04/13/20 04/13/20 Range/Units 05:29 05:29 16:57 RBC 4.34 L (4.40-5.60) X 10*6/uL Hgb 12.5 L (13.0-17.0) g/dL MCHC 31.3 L (32.0-37.0) g/dL BUN/Creatinine Ratio 11.54 L (12.00-20.00) Ratio POC Glucose (mg/dL) 132 H (75-99) mg/dL Calcium 8.6 L (8.7-10.3) mg/dL Total Protein 5.8 L (6.2-8.2) g/dL 04/13/20 04/14/20 Range/Units 20:26 06:12 RBC (4.40-5.60) X 10*6/uL Hgb (13.0-17.0) g/dL MCHC (32.0-37.0) g/dL BUN/Creatinine Ratio (12.00-20.00) Ratio POC Glucose (mg/dL) 103 H 109 H (75-99) mg/dL Calcium (8.7-10.3) mg/dL Total Protein (6.2-8.2) g/dL Assessment and Plan Plan: 1. Chest pain likely noncardiac likely related to possible gastroenteritis but rule out coronary artery disease progression. Cardiology consult appreciated. Patient is scheduled for heart catheterization today with Dr. Jorgensen. 2. Possible gastroenteritis, continue IV fluid, abdominal x-ray showed an ileus this is followed by computed tomography scan of the abdomen and pelvis with contrast that showed evidence of diverticulosis without evidence of diverticulitis. 3. Rectal bleed likely related to hemorrhoids versus diverticular bleed. Cons ult Dr. Cardona from general surgery. 4. CAD with prior bypass surgery and percutaneous coronary interventions. Continue metoprolol at 50 mg orally twice every day, aspirin 81 mg daily, atorvastatin 80 mg at bedtime, Ranexa 100 mg orally twice every day, patient scheduled to go for left heart catheterization today. 5. COPD without exacerbation . Patient is in room air. 6. CKD stage II, nephrotoxins will be avoided, hypotension would be avoided, labs will be monitored 7. Ischemic cardiomyopathy with angina: With multiple coronary artery disease. We will continue patient on metoprolol 50 mg orally twice every day, lisinopril 10 mg orally once every day, Ranexa 500 mg orally twice every day and Imdur 60 mg orally twice every day. 8. Hypertension and hypertensive cardiovascular disease. metoprolol 50 mg twice a day, lisinopril 20 mg daily, Norvasc 2.5 mg daily. 9. Hyperlipidemia. On atorvastatin 80 mg daily. 10. Recurrent gastritis and GERD. Protonix 40 mg daily. 11. Chronic tobacco use. Smoking cessation 12. GI prophylaxis. We will continue with Protonix 40 mg orally once every day. 13. DVT prophylaxis. Heparin 5000 units subcutaneously every 8 hours. 14. Morbid obesity with BMI of 39.7 we will continue with diet and exercise and weight loss and total life style changes with risk factor modifications. Discharge plan: Home Impression and plan of care have been directed as dictated by the signing physician. Karissa Moncada nurse practitioner acting as scribe for signing physician.
--- NOTE | 2020-04-14 12:27 | P.PN ---
<Debra Escalante - Last Filed: 04/14/20 12:23> Subjective Progress Note Date: 04/14/20 CHIEF COMPLAINT: Rectal bleeding HISTORY OF PRESENT ILLNESS: Patient is being followed for rectal bleeding. He denies any rectal pain. Patient reports last night she did have a bowel movement with small streak of blood noted. He is passing gas. History of known hemorrhoids. Last hemorrhoidal banding 2014. Last colonoscopy showing mild proctitis 2017. Patient is scheduled for cardiac catheterization today. Afebrile WBC 5.5 Hgb 12.6 PHYSICAL EXAM: VITAL SIGNS: Reviewed. GENERAL: Well-developed in no acute distress. HEENT: No sclera icterus. Extraocular movements grossly intact. Moist buccal mucosa. Head is atraumatic, normocephalic. ABDOMEN: Soft. Nondistended. Nontender. NEUROLOGIC: Alert and oriented. Cranial nerves II through XII grossly intact. ASSESSMENT: 1. Rectal bleeding PLAN: -Continue to monitor for active bleeding. Hemoglobin remained stable. -Short-term follow-up colonoscopy with possible hemorrhoidal banding with Dr. Cardona may be necessary. -Further recommendations forthcoming per surgeon Physician Collar Sewer note has been reviewed by physician. Signing provider agrees with the documented findings, assessment, and plan of care. Objective - Vital Signs Vital signs: Vital Signs Temp 97.7 F 04/14/20 08:00 Pulse 77 04/14/20 08:00 Resp 16 04/14/20 08:00 BP 124/81 04/14/20 08:00 Pulse Ox 94 L 04/14/20 08:00 Intake & Output 04/13/20 04/14/20 04/14/20 18:59 06:59 18:59 Intake Total 240 240 150 Output Total 1175 Balance 240 -935 150 Weight 127.01 kg 130.6 kg Intake: Intake, IV Titration 150 Amount Sodium Chloride 0.9% 1, 150 000 ml In Empty Bag 1 bag @ 1 ML/KG/HR 127.01 mls/ hr IV .Q7H53M ONE Rx#: [id number] Oral 240 240 Output: Urine 1175 Other: Voiding Method Toilet Toilet # Voids 1 1 - Labs CBC & Chem 7: 04/14/20 06:45 04/13/20 05:29 Labs: Abnormal Lab Results - Last 24 Hours (Table) 03/09/2604/13/20 04/14/20 Range/Units 16:57 20:26 06:12 Hgb (13.0-17.5) gm/dL Hct (39.0-53.0) % POC Glucose (mg/dL) 132 H 103 H 109 H (75-99) mg/dL 04/14/20 04/14/20 04/14/20 Range/Units 06:45 10:44 11:37 Hgb 12.6 L (13.0-17.5) gm/dL Hct 38.9 L (39.0-53.0) % POC Glucose (mg/dL) 106 H 109 H (75-99) mg/dL <Arnie Cardona - Last Filed: 04/14/20 15:23> Subjective As above. Small amount of blood last night. Going for cardiac catheterization today. We'll follow closely on anticoagulation. Objective - Vital Signs Vital signs: Vital Signs Temp 97.7 F 04/14/20 08:00 Pulse 77 04/14/20 08:00 Resp 16 04/14/20 14:00 BP 124/81 04/14/20 08:00 Pulse Ox 94 L 04/14/20 08:00 Intake & Output 04/13/20 04/14/20 04/14/20 18:59 06:59 18:59 Intake Total 240 240 250 Output Total 1175 Balance 240 -935 250 Weight 127.01 kg 130.6 kg Intake: IV 100 Intake, IV Titration 150 Amount Sodium Chloride 0.9% 1, 150 000 ml In Empty Bag 1 bag @ 1 ML/KG/HR 127.01 mls/ hr IV .Q7H53M ONE Rx#: [id number] Oral 240 240 Output: Urine 1175 Other: Voiding Method Toilet Toilet # Voids 1 1 - Labs CBC & Chem 7: 04/14/20 06:45 04/13/20 05:29 Labs: Abnormal Lab Results - Last 24 Hours (Table) 04/13/20 04/13/20 04/14/20 Range/Units 16:57 20:26 06:12 Hgb (13.0-17.5) gm/dL Hct (39.0-53.0) % POC Glucose (mg/dL) 132 H 103 H 109 H (75-99) mg/dL 0304/14/20 04/14/20 Range/Units 06:45 10:44 11:37 Hgb 12.6 L (13.0-17.5) gm/dL Hct 38.9 L (39.0-53.0) % POC Glucose (mg/dL) 106 H 109 H (75-99) mg/dL Assessment and Plan (1) Rectal bleeding Current Visit: No Status: Acute Code(s): K62.5 - HEMORRHAGE OF ANUS AND RECTUM SNOMED Code(s): 73671663
[2020-04-14] MEDS ORDERED: fentaNYL (PF) 50 MCG/ML 2 ML AMP ONE (12:51)
[2020-04-14] MEDS ORDERED: IV FLUID CONTINUATION 500 ML IV ONE (12:55)
[2020-04-14] MEDS ORDERED: fentaNYL (PF) 50 MCG/ML 2 ML AMP IVP ONE (12:57)
[2020-04-14] MEDS ORDERED: LIDOCAINE 1% INJ 10MG/ML (20 ML MDV) SQ ONE (13:08)
[2020-04-14] MEDS ORDERED: VERAPAMIL SYRINGE (5 MG/10 ML) INTRAARTER ONE (13:11)
[2020-04-14] MEDS: HEPARIN SODIUM 1,000 UN/ML (10ML VL) IV ONE ×3 (13:17→14:04)
[2020-04-14] MEDS ORDERED: HEPARIN SODIUM 1,000 UN/ML (10ML VL) ONE (13:17)
[2020-04-14] MEDS ORDERED: IOPAMIDOL-370 125ML BTL INJ ONE (13:35)
[2020-04-14] MEDS ORDERED: IOPAMIDOL-370 100ML BTL INJ ONE (14:23)
[2020-04-14] MEDS ORDERED: IOPAMIDOL-370 50ML BTL INJ ONE (14:23)
[2020-04-14] MEDS ORDERED: ZOLPIDEM 5 MG TAB PO PRN (14:43)
[2020-04-14] MEDS ORDERED: NITROGLYCERIN SL TABS 0.4 MG TAB SUBLINGUAL PRN (14:43)
[2020-04-14] MEDS ORDERED: ATROPINE SULFATE 0.1 MG/ML 10ML SYRINGE IV PRN (14:43)
[2020-04-14] MEDS ORDERED: MAG HYDROX/AL HYDROX/SIMETH 30 ML CUP PO PRN (14:43)
[2020-04-14] MEDS ORDERED: RX INFO: IV CONTRAST WAS GIVEN 1 EACH MISC MISCELLANE PRN (14:43)
[2020-04-14] MEDS ORDERED: SODIUM CHLORIDE 0.9% 1,000 ML IV SCH (14:45)
[2020-04-14 16:45] LABS: Glucose,Whole Blood 125 mg/dL (75-99)
--- NOTE | 2020-04-14 19:47 | CC ---
CARDIAC CATHETERIZATION REPORT Mr. Crump is a 54-year-old male with a known history of coronary artery disease, status post coronary artery bypass grafting and percutaneous revascularization, who presented with symptoms of chest discomfort and underwent myocardial perfusion imaging that revealed evidence of fixed defect and inducible ischemia. In view of that, recommendation was made regarding cardiac catheterization. The procedure, it risks and complications were discussed with the patient, who was in full understanding and agreement. PROCEDURE DESCRIPTION: Patient was brought to the [facility] in a fasting, semi-sedated state after receiving fentanyl and Benadryl and achieving moderate conscious sedated state. Using Xylocaine anesthesia and Seldinger technique, a 6-Beninese sheath was introduced in the left radial artery. Selective right and left coronary angiography was performed using 5-Beninese 4 bend right Bernadette, and a 3-1/2 bend left Bernadette. Images of the [place] coronary arteries were obtained. Subsequently the right Bernadette was used to cannulate the saphenous vein graft to the obtuse marginal branch and the saphenous vein graft to the right coronary artery. Attempts to cannulate the saphenous vein graft to the diagonal branch were unsuccessful. That catheter was removed, and the first diagonal branch graft was cannulated using a 6-Beninese left coronary artery bypass catheter. Images of the grafts were obtained. Following that, attempts to cannulate the saphenous vein graft to the second diagonal were unsuccessful using the left coronary artery bypass catheter as well as a multipurpose B2 and 3-1/2 bend right Bernadette at that time. After obtaining images of the coronary arteries, angioplasty was performed. Following that, a 5-Beninese tight pigtail catheter was introduced into the ascending aorta and pressures were calculated. Following that, catheters and sheaths were removed. Hemostasis was obtained with deployment of a TR band. There was no immediate complication. Patient was returned to his room in stable condition. Of note, the patient received a total of 9000 units of intravenous heparin throughout the procedure and intra-arterial verapamil. His left ventricular end-diastolic pressure was calculated using the right Bernadette catheter. FINDINGS: 1. FLUOROSCOPY: There was calcification involving the coronary arteries. 2. LEFT MAIN: This is a large-sized vessel bifurcating into left circumflex, left anterior descending artery. Left main coronary artery has no evidence of high-grade stenosis. 3. LEFT ANTERIOR DESCENDING ARTERY: This vessel is large in caliber, reaching toward the apex with a wrap around the apex segment. There is 20% plaque proximally. The rest of the vessel has no high-grade stenosis. 4. LEFT CIRCUMFLEX: The AV groove circumflex is patent. There is a stented segment proximally that is hazy and appears to have a 95% or so stenosis with under- deployed stent. Distally the vessel is open. The AV groove obtuse marginal branches are occluded. 5. RIGHT CORONARY ARTERY: This vessel is totally occluded proximally. 6. SAPHENOUS VEIN GRAFT TO THE OBTUSE MARGINAL BRANCH: The proximal distal anastomotic sites are patent. The flow into the obtuse marginal branch is brisk. 7. SAPHENOUS VEIN TO THE FIRST DIAGONAL BRANCH: The proximal and distal anastomotic sites are patent. The flow into the diagonal branch is brisk. There is retrograde flow into the LAD. 8. AORTOGRAM: The aortogram was performed in the KOREAN view and revealed 2 grafts. The third graft could not be visualized. 9. HEMODYNAMICS: There was no gradient across the aortic valve. The left ventricular end-diastolic pressure was 16 to 18 mmHg. CONCLUSION: 1. Critical stenosis in the stented segment of the proximal left circumflex with appearance of an under-deployed stent. 2. Chronically occluded right coronary artery. 3. Patent saphenous vein graft to the obtuse marginal branch and the first diagonal branch with retrograde flow into the LAD. 4. Inability to cannulate the saphenous vein graft to the diagonal branch 2, with the possibility that it is occluded. 5. Occluded saphenous vein graft to the right coronary artery. RECOMMENDATIONS: In view of findings and anatomy, I have recommended proceeding with angioplasty of the saphenous vein graft to the obtuse marginal branch. The procedure, its risks and complications were discussed with the patient, who is in full understanding and agreement. MMODL / IJN: [id number] /
--- NOTE | 2020-04-14 20:12 | PTCA ---
PERCUTANEOUSTRANS CORORONARY ANGIOGRAPHY Mr. Crump is a 54-year-old male with a known history of coronary artery disease who presented with symptoms of chest discomfort, had abnormal myocardial perfusion imaging, underwent cardiac catheterization and was found to have significant obstructive disease involving the proximal segment of the left circumflex in the stented segment. In view of that, recommendation was made regarding angioplasty and stenting. The procedure, its risks and complications were discussed with the patient, who was in full understanding and agreement. PROCEDURE DESCRIPTION: A 6-Armenian EBU 3.75 guiding catheter was introduced into the system. After counting the left main, a 0.014 balanced medium weight J-wire was advanced across the lesion and positioned distally. Subsequently a 3.0 x 12 mm NC Trek balloon was advanced and one inflation at 12 atmospheres was done. Following that, the balloon was removed and a 3.5 x 12 mm NC Trek balloon was advanced, and inflations up to 14 atmospheres were done. Following that, the balloon was removed and a 4.0 x 12 mm NC Trek balloon was advanced and inflations up to 16 atmospheres were done. Following that, the balloon was removed and attempts to advance a 4.5 x 12 mm NC Trek balloon were unsuccessful. That balloon was removed and a 4.5 x 8 mm NC Trek balloon was advanced and inflations up to 20 atmospheres were done. After the last inflation, after appropriate wait, the balloon and the guidewire were withdrawn back into the guiding catheter. Images were obtained and repeated. Those images revealed stable successful angioplasty. At that point aortogram was performed in the SYRIAN view. Following that, catheter and sheath were removed. Hemostasis was obtained with deployment of a TR band. There was no immediate complication. Patient was returned to his room in stable condition. Of note, the patient had no chest discomfort or EKG changes with the inflation. He received a total of 9000 units intravenous heparin and his ACT was followed. RESULTS: Successful angioplasty of the proximal in-stent restenosis of the left circumflex with reduction of stenosis from 95% to less than 20%. There was the appearance of under- deployment of the 2 layers of stent that were performed in 2018 and 2019. RECOMMENDATIONS: Patient will be continued on aspirin, Plavix and aggressive coronary risk modifications. If he has recurrent symptoms, then one of the options to consider is ablation of the proximal stent. Those findings and recommendation were discussed with the patient, and he is in full understanding and agreement. Duration of sedation was 80 minutes. MMODL / IJN: [id number] /
--- NOTE | 2020-04-14 20:16 | LTR ---
April 14, 2020 To: Dr. Sharron Hernández Re: Guido Crump (67) Dear Dr. Hernánedz, I had the pleasure of performing cardiac catheterization and coronary angioplasty on Mr. Crump at [facility] on April 14. A full copy of the procedure note will be forwarded to you. In brief, he was found to have evidence of in-stent restenosis. He underwent successful angioplasty of that vessel. I will keep you updated on his progress. Thank you again for letting me to participate in his care. Please feel free to call with any questions. Sincerely yours, Freda Jorgensen M.D. LEONEL / LESLI: [id number] /
[2020-04-14] MEDS: ATORVASTATIN 80 MG TAB PO SCH (20:18)
[2020-04-14] MEDS: ASPIRIN 81 MG PO SCH (20:18)
[2020-04-14 20:44] LABS: Glucose,Whole Blood 97 mg/dL (75-99)
[2020-04-15 06:09] LABS: Glucose,Whole Blood 103 mg/dL (75-99)
[2020-04-15] MEDS: INSULIN ASPART (NovoLOG) 100 UNIT/ML VIAL SQ SCH ×3 (06:18→16:40)
[2020-04-15 08:38] LABS: Calcium 8.9 mg/dL (8.4-10.2); Potassium 4.4 mmol/L (3.5-5.1)
[2020-04-15] MEDS: ISOSORBIDE MONONITRATE ER 60 MG TAB.ER.24H PO SCH ×2 (08:40→19:47)
[2020-04-15] MEDS: amLODIPine 2.5 MG TAB PO SCH (08:40)
[2020-04-15] MEDS: METOPROLOL TARTRATE 50 MG TAB PO SCH ×2 (08:40→19:48)
[2020-04-15] MEDS: CLOPIDOGREL 75 MG TAB PO SCH (08:41)
[2020-04-15] MEDS: PANTOPRAZOLE 40 MG TABLET PO SCH (08:41)
[2020-04-15] MEDS: lisinopriL 20 MG TAB PO SCH (08:41)
[2020-04-15] MEDS: RANOLAZINE 500 MG TAB.ER.12H PO SCH ×2 (08:42→19:48)
[2020-04-15 11:27] VITALS: BMI 40.2
[2020-04-15 11:44] LABS: Glucose,Whole Blood 90 mg/dL (75-99)
--- NOTE | 2020-04-15 13:25 | P.PN ---
Subjective Progress Note Date: 04/15/20 HISTORY OF PRESENT ILLNESS: 04/11/2020 This is a 54-year-old male with a past medical history significant for diabetes mellitus, hypertension, hyperlipidemia, CVA, and coronary artery disease with previous CABG and stenting. Patient follows in the office with Dr Jorgensen. We have been asked to see the patient in consultation for chest pain. Patient reports he woke up around 3 AM with chest discomfort. He states this was on the left side of his chest and felt like a heavy pressure. He states the pain radiated down his left arm. He reports feeling nauseated. He reports diaphor esis. He denies any significant shortness of breath. He states the discomfort lasts until about 6 AM. He called EMS and was transported to the hospital. He reports receiving nitro and aspirin in route to the hospital which relieved his pain. The patient continues to report some mild nausea and chest discomfort this morning. He is currently rating his pain 1/10. The patient underwent cardiac catheterization in November [address] Santoyo revealing mild disease of the left main coronary artery, mild disease involving the left anterior descending artery. HOPKINS to LAD is atrophic because there is no obstructive disease in the LAD. Patent saphenous vein graft to the first and second diagonal branches of the LAD. Severe disease involving the proximal left circumflex coronary artery. Patent saphenous vein graft to OM branch of the left circumflex. Chronic total occlusion of the right coronary artery. Known occluded SVG to RCA which was documented from previous heart cath. Patient underwent successful stenting of the proximal left circumflex. Patient states he was hospitalized in March 2019 at [facility] and states he had a heart catheterization performed at that time with a stent placed. Patient is unsure which vessel was stented. EKG reveals sinus mechanism with T-wave inversions in lead 1, aVL, and V2 Chest xray no acute pulmonary process Laboratory data: WBC 8.1. Hemoglobin 14.3. Platelet count 235. Sodium 137. Potassium 4.7. BUN 29. Creatinine 1.30. Magnesium 1.7. Troponin negative 1. BNP 70. Current home cardiac medications include lisinopril 20 mg daily, amlodipine 2.5 mg daily, Ranexa 1000 g twice a day, metoprolol tartrate 50 mg twice a day, Imdur 60 mg twice a day, Plavix 75 mg daily, Lipitor 80 mg daily, and aspirin 81 mg daily 04/12/2020 Patient examined this morning at the bedside. Patient denies chest pain or p ressure. He denies shortness of breath. Troponins negative 3. IV heparin was discontinued yesterday. Echocardiogram completed revealed ejection fraction 55- 60%, trace mitral regurgitation, and trace tricuspid regurgitation. 04/14/2020-Per Michelle Portillo dictation Catheterization report reviewed yesterday from [facility] that was performed March 2019 revealing left main widely patent, nikolski circumflex with severe in-stent restenosis in the proximal portion, LAD patent, RCA is occluded, graft to the right is occluded, graft to the diagonal is patent, graft to the OM is patent with a 50% ostial stenosis. At that time he underwent successful PCI of the nikolski circumflex stent. 04/15/2020 Patient underwent cardiac cath yesterday with Dr. Jorgensen revealing critical stenosis in the stented segment of the proximal left circumflex with appearance of been under quite stent. Chronically occluded right coronary artery. Patent saphenous vein graft to the obtuse marginal branch and the first diagonal branch with retrograde flow into the LAD. Inability to cannulate the saphenous vein graft to the diagonal branch to with the possibility that it is occluded. Occluded saphenous vein graft to the right coronary artery. Patient underwent angioplasty of the proximal in-stent restenosis of the left circumflex with reduction of stenosis from 95% to less than 20%. Patient examined this morning at bedside. He denies chest pain or pressure. He denies shortness of breath. Vital signs are stable. Potassium 4.4. BUN 14. Creatinine 1.30. PHYSICAL EXAM: VITAL SIGNS: Reviewed. GENERAL: Well-developed in no acute distress. HEENT: Head is normocephalic. Pupils are equal, round. Sclerae anicteric. Mucous membranes of the mouth are moist. Neck supple. No JVD or thyromegaly LUNGS: Respirations even and unlabored. Lungs diminished bilaterally. HEART: Regular rate and rhythm. S1 and S2 heard. ABDOMEN: Soft. Nondistended. Nontender. EXTREMITIES: Normal range of motion. No clubbing or cyanosis. Peripheral pulses intact. No lower extremity edema. Left radial cath site with pulse present. NEUROLOGIC: Awake and alert. Oriented x 3. ASSESSMENT: Chest pain, troponins negative 3, status post cardiac catheterization with angioplasty of the left circumflex Coronary artery disease with previous CABG and multivessel PCI Hypertension Hyperlipidemia Diabetes mellitus Chronic kidney disease History of CVA Anxiety Depression Nicotine dependence Morbid obesity PLAN: Continue current cardiac medications Continue telemetry monitoring Per Dr. Jorgensen, patient will likely undergo cardiac cath again tomorrow pending further review of cardiac cath records from [place] Further recommendations pending patient course Nurse practitioner note has been reviewed by physician. Signing provider agrees with the documented findings, assessment, and plan of care. Objective - Vital Signs Vital signs: Vital Signs Temp 98.5 F 04/15/20 08:00 Pulse 69 04/15/20 12:00 Resp 16 04/15/20 12:00 BP 134/89 04/15/20 12:00 Pulse Ox 96 04/15/20 12:00 Intake & Output 04/14/20 04/15/20 04/15/20 18:59 06:59 18:59 Intake Total 910 300 Output Total 600 Balance 310 300 Weight 131 kg 131 kg Intake: IV 100 Intake, IV Titration 150 300 Amount Sodium Chloride 0.9% 1, 300 000 ml @ 75 mls/hr IV . [id number] [facility] Rx#:[id number] Sodium Chloride 0.9% 1, 150 000 ml In Empty Bag 1 bag @ 1 ML/KG/HR 127.01 mls/ hr IV .Q7H53M ONE Rx#: [id number] Oral 660 Output: Urine 600 Other: Voiding Method Toilet Toilet Toilet # Voids 1 - Labs CBC & Chem 7: 04/14/20 06:45 04/15/20 07:34 Labs: Abnormal Lab Results - Last 24 Hours (Table) 04/14/20 04/15/20 04/15/20 Range/Units 16:43 06:08 07:34 Creatinine 1.30 H (0.66-1.25) mg/dL Glucose 114 H (74-99) mg/dL POC Glucose (mg/dL) 125 H 103 H (75-99) mg/dL
--- NOTE | 2020-04-15 15:31 | P.PN ---
Subjective Progress Note Date: 04/15/20 This is a 54-year-old gentleman patient of mc and Dr Jorgensen with history of CAD, CABG, previous CVA involving the occipital lobe,chronic tobacco use and cigar use, moderate alcohol consumption. His cardiac history are as follows:coronary artery disease multiple procedure including bypass grafting 2008 which is HOPKINS to the LAD and saphenous vein graft to the diagonal 1 saphenous vein graft to the diagonal 2 and saphenous vein graft to the obtuse marginal and right coronary artery. His last heart catheterization was in November 2017 at which time circumflex had a 60-70% lesion with fractional flow reserve of that lesion to be ischemic at 0.80. Mid left circumflex normal, left circumflex distally normal. LAD with mild disease, right coronary artery chronically occluded at the proximal portion and fills with collaterals from the left coronary system. The saphenous vein graft to the first diagonal, saphenous vein graft to the second diagonal, saphenous vein graft to the obtuse marginal were all patent. HOPKINS to LAD was atrophic and included in the midportion. Patient underwent drug-eluting stent to the proximal left circumflex. Patient was seen by Dr. Jorgensen about 2 weeks ago and he was scheduled to go for laboratory evaluation as well as a stress test scheduled to be done prior to his next appointment which would be in the summer, patient was doing fine he continues to struggle to lose weight, he has been doing fine otherwise, he had ravioli and breadsticks last night he went to bed around 12:00 woke up around 3:00 in the morning was coming of clammy sweat not feeling well nauseated had 3 Ren bowel movement and he was completely left-sided chest and the same time he ended up coming to the ER via EMS for evaluation, his laboratory evaluation were negative chest x-ray did not show any evidence of acute of normalities, because of the presentation and his a prior history was admitted to the hospital for evaluation by cardiology abdominal x-ray still pending. 04/12: Patient abdominal x-ray yesterday showed ileus underwent computed tomography scan of the abdomen and pelvis with oral contrast that showed evidence ecchymosis that evidence of diverticulitis, patient continued to have some abdominal distention, he continued to have some minimal rectal bleeding at his medicines yesterday, we will consult Dr. dunlap for evaluation he did have a colonoscopy I believe back in 2016 and he had hemorrhoid banding at that time, this is could be all related to that we will continue to monitor, patient has no chest pain today has no shortness breath at this time, he continued to be bloated, he ate his breakfast today he did not have any nausea or vomiting, is scheduled to go for a Lexiscan stress test tomorrow morning for evaluation of his chest pain that I believe its atypical. 04/13: Lexiscan stress test revealed old apical infarct but suspected mild vernon- infarct ischemia. Additional suspicious reversibility seen along the mid inferior lateral wall. Patient is now scheduled for heart catheterization tomorrow with Dr. Jorgensen. He has been afebrile, heart rate 70, blood pressure 116/78, pulse ox 96% on room air. Hemoglobin 12.5. Electrolytes normal, creatinine 1.3. Blood sugars running between 100-166. 04/14: The patient denies having any chest pain. He states he is a little anxious to have the heart catheterization which is scheduled today. He is an add on and expected to be scheduled later in the day. He states that he had a little bit of blood in his stool last night. He has been afebrile, heart rate 64, blood pressure 130/87, pulse ox 96% on room air. Blood sugars are running between 97 and 32. Hemoglobin 12.6. Discussed with patient need for weight loss. 04/15: Yesterday, patient underwent heart catheterization with Dr. song on revealing critical stenosis and a stented segment of the proximal left circumflex with appearance of being under-deployed stent. Chronically occluded right coronary artery. Patent saphenous vein graft to the obtuse marginal branch and the first diagonal branch with retrograde flow into the LAD. Inability to cannulate the saphenous vein graft to the diagonal branch 2 with possibility that this is occluded. Occluded saphenous vein graft to the right coronary artery. Patient then underwent successful angioplasty of the proximal in-stent restenosis of the left circumflex. This was done through the right radial with no signs of hematoma or bleeding today. Patient denies having any chest pain. Cardiology is waiting for report from [facility] and he is tentatively scheduled from repeat cath tomorrow. Dr. Cardona will have follow up after discharge regarding GI bleeding workup. Patient has been afebrile, heart rate 69, blood pressure 134/89, pulse ox 96% on room air. Repeat blood work rev eals normal electrolytes. BUN 14 and creatinine 1.3. Blood sugars running between 90 and 125. Objective - Vital Signs Vital signs: Vital Signs Temp 98.5 F 04/15/20 08:00 Pulse 69 04/15/20 12:00 Resp 16 04/15/20 12:00 BP 134/89 04/15/20 12:00 Pulse Ox 96 04/15/20 12:00 Intake & Output 04/14/20 04/15/20 04/15/20 18:59 06:59 18:59 Intake Total 910 300 300 Output Total 600 Balance 310 300 300 Weight 131 kg 131 kg Intake: IV 100 Intake, IV Titration 150 300 300 Amount Sodium Chloride 0.9% 1, 300 300 000 ml @ 75 mls/hr IV . [id number] [facility] Rx#:[id number] Sodium Chloride 0.9% 1, 150 000 ml In Empty Bag 1 bag @ 1 ML/KG/HR 127.01 mls/ hr IV .Q7H53M [facility] Rx#: [id number] Oral 660 Output: Urine 600 Other: Voiding Method Toilet Toilet Toilet # Voids 1 - Exam Review of Systems Constitutional: Reports chronic pain, Reports weight gain, Denies anorexia, Denies lethargy, Denies weakness, Denies weight loss Eyes: denies blurred vision, denies bulging eye, denies decreased vision Ears: deny: decreased hearing Ears, nose, mouth and throat: Denies dysphagia, Denies neck lump, Denies sore throat Cardiovascular: Denies chest pain, Reports decreased exercise tolerance, Reports dyspnea on exertion, Reports shortness of breath, Denies lightheadedness, Denies syncope Gastrointestinal: Reports abdominal pain, Reports bloating, Reports diarrhea, Reports excessive gas, Reports indigestion, Reports nausea, Denies BRBPR, Denies change in bowel habits, Denies vomiting Genitourinary: Denies nocturia Musculoskeletal: Denies myalgias Musculoskeletal: absent: ankle pain, ankle stiffness, ankle swelling, elbow suzan n, elbow stiffness, elbow swelling, foot pain, foot stiffness, foot swelling, hand pain, hand stiffness, hand swelling, hip pain, hip stiffness, hip swelling, knee pain, knee stiffness, knee swelling, shoulder pain, shoulder stiffness, shoulder swelling, wrist pain, wrist stiffness, wrist swelling Integumentary: Denies pruritus, Denies rash Neurological: Denies numbness, Denies weakness Psychiatric: Denies anxiety, Denies depression Endocrine: Denies fatigue, Denies weight change Physical examination: GEN: This is a 54-year-old morbidly obese male. He is sitting on the edge of the bed receiving a back massage. He appears to be in no acute distress. HEENT: Head is atraumatic, normocephalic, pupils were equal round reactive to light and the clinician, extraocular muscles were intact, sclera nonicteric, conjunctivae without pallor, mucous membranes of the mouth are moist. Neck: Supple, no JVP, no lymphadenopathy. Chest: Decreased breath sounds at the bases, few rhonchi, no extremity wheezes, no chest wall tenderness, no intercostal retractions. Heart: First heart sound is depressed, second heart sounds normal, there is no gallop or murmur. Abdomen: Soft, obese, nonspecific tenderness, positive bowel sounds. Extremities: There is no edema, no calf tenderness, dorsalis pedis +2 bilaterally. Neurologic examination: Patient is awake alert and oriented 3, creatinine nerves II-12 appear grossly intact, muscle power 5 out of 5 in upper and lower extremities bilaterally. - Labs CBC & Chem 7: 04/14/20 06:45 04/15/20 07:34 Labs: Abnormal Lab Results - Last 24 Hours (Table) 04/14/20 04/15/20 04/15/20 Range/Units 16:43 06:08 07:34 Creatinine 1.30 H (0.66-1.25) mg/dL Glucose 114 H (74-99) mg/dL POC Glucose (mg/dL) 125 H 103 H (75-99) mg/dL Assessment and Plan Plan: 1. Chest pain secondary to coronary artery disease progression status post heart catheterization and successful angioplasty of the proximal in-stent re stenosis of the left circumflex. Cardiology consult appreciated. Patient is tentatively scheduled for repeat heart catheterization today with Dr. Jorgensen. 2. Possible gastroenteritis, continue IV fluid, abdominal x-ray showed an ileus this is followed by computed tomography scan of the abdomen and pelvis with contrast that showed evidence of diverticulosis without evidence of diverticulitis. 3. Rectal bleed likely related to hemorrhoids versus diverticular bleed. Consult Dr. Cardona from general surgery. Plan is for outpatient workup. 4. CAD with prior bypass surgery and percutaneous coronary interventions. Continue metoprolol at 50 mg orally twice every day, aspirin 81 mg daily, at orvastatin 80 mg at bedtime, Ranexa 100 mg orally twice every day, patient scheduled to go for left heart catheterization today. 5. COPD without exacerbation . Patient is in room air. 6. CKD stage II, nephrotoxins will be avoided, hypotension would be avoided, labs will be monitored 7. Ischemic cardiomyopathy with angina: With multiple coronary artery disease. We will continue patient on metoprolol 50 mg orally twice every day, lisinopril 20 mg orally once every day, Ranexa 500 mg orally twice every day and Imdur 60 mg orally twice every day. 8. Hypertension and hypertensive cardiovascular disease. metoprolol 50 mg twice a day, lisinopril 20 mg daily, Norvasc 2.5 mg daily. 9. Hyperlipidemia. On atorvastatin 80 mg daily. 10. Recurrent gastritis and GERD. Protonix 40 mg daily. 11. Chronic tobacco use. Smoking cessation 12. GI prophylaxis. We will continue with Protonix 40 mg orally once every day. 13. DVT prophylaxis. Heparin 5000 units subcutaneously every 8 hours. 14. Morbid obesity with BMI of 39.7 we will continue with diet and exercise and weight loss and total life style changes with risk factor modifications. Discharge plan: Home Impression and plan of care have been directed as dictated by the signing physician. Karissa Moncada nurse practitioner acting as scribe for signing physician.
[2020-04-15 16:40] LABS: Glucose,Whole Blood 98 mg/dL (75-99)
--- NOTE | 2020-04-15 18:34 | P.PN ---
Subjective Progress Note Date: 04/15/20 Principal diagnosis: Rectal bleeding Patient doing well today. No rectal bleeding. Possible repeat catheterization tomorrow. Objective - Vital Signs Vital signs: Vital Signs Temp 98.5 F 04/15/20 08:00 Pulse 75 04/15/20 16:00 Resp 16 04/15/20 16:00 BP 133/95 04/15/20 16:00 Pulse Ox 96 04/15/20 16:00 Intake & Output 04/14/20 04/15/20 04/15/20 18:59 06:59 18:59 Intake Total 910 300 994 Output Total 600 Balance 310 300 994 Weight 131 kg 131 kg Intake: IV 100 Intake, IV Titration 150 300 300 Amount Sodium Chloride 0.9% 1, 300 300 000 ml @ 75 mls/hr IV . [id number] [facility] Rx#:[id number] Sodium Chloride 0.9% 1, 150 000 ml In Empty Bag 1 bag @ 1 ML/KG/HR 127.01 mls/ hr IV .Q7H53M [facility] Rx#: [id number] Oral 660 694 Output: Urine 600 Other: Voiding Method Toilet Toilet Toilet # Voids 1 3 - Exam Abdomen: Soft, nontender, nondistended Rectal: Internal and external hemorrhoids present without evidence of bleeding, no fissure, no fistula - Labs CBC & Chem 7: 04/14/20 06:45 04/15/20 07:34 Labs: Abnormal Lab Results - Last 24 Hours (Table) 04/15/20 04/15/20 Range/Units 06:08 07:34 Creatinine 1.30 H (0.66-1.25) mg/dL Glucose 114 H (74-99) mg/dL POC Glucose (mg/dL) 103 H (75-99) mg/dL Assessment and Plan (1) Rectal bleeding Narrative/Plan: Patient doing well at this time. Remains on anticoagulation. No further bleeding. Continue observation of the patient's hemorrhoidal bleeding. Follow- up as outpatient to discuss future intervention and endoscopy if necessary. We 'll sign off. Please call if needed. Current Visit: No Status: Acute Code(s): K62.5 - HEMORRHAGE OF ANUS AND RECTUM SNOMED Code(s): 11919294
[2020-04-15] MEDS: ATORVASTATIN 80 MG TAB PO SCH (19:47)
[2020-04-15] MEDS: ASPIRIN 81 MG PO SCH (19:47)
[2020-04-15 19:52] LABS: Glucose,Whole Blood 133 mg/dL (75-99)
[2020-04-16 06:15] LABS: Glucose,Whole Blood 107 mg/dL (75-99)
[2020-04-16] MEDS: SODIUM CHLORIDE 0.9% 1,000 ML IV SCH (06:20)
[2020-04-16] MEDS: INSULIN ASPART (NovoLOG) 100 UNIT/ML VIAL SQ SCH (06:21)
[2020-04-16] MEDS: METOPROLOL TARTRATE 50 MG TAB PO SCH (09:16)
[2020-04-16] MEDS: CLOPIDOGREL 75 MG TAB PO SCH (09:16)
[2020-04-16] MEDS: PANTOPRAZOLE 40 MG TABLET PO SCH (09:16)
[2020-04-16] MEDS: lisinopriL 20 MG TAB PO SCH (09:16)
[2020-04-16] MEDS: RANOLAZINE 500 MG TAB.ER.12H PO SCH (09:17)
[2020-04-16] MEDS: ISOSORBIDE MONONITRATE ER 60 MG TAB.ER.24H PO SCH (09:17)
[2020-04-16] MEDS: amLODIPine 2.5 MG TAB PO SCH (09:17)
[2020-04-16 09:21] VITALS: BP 124/87; PULSE 77; RESP 16; TEMP 98.1
--- NOTE | 2020-04-16 10:31 | P.DS ---
Providers Date of admission: 04/13/20 14:38 Expected date of discharge: 04/16/20 Attending physician: Sharron Hernández Consults: 04/11/20 06:01 Consult Physician Urgent Consulting Provider: Freda Jorgensen Consult Reason/Comments: cp Do you want consulting provider notified?: Yes 04/12/20 10:48 Consult Physician Routine Consulting Provider: Arnie Cardona Consult Reason/Comments: Rectal bleed/ Do you want consulting provider notified?: Yes 04/14/20 14:43 Consult Physician Routine Consulting Provider: [facility] Consult Reason/Comments: Post Interventional patient Do you want consulting provider notified?: Already Contacted Primary care physician: Sharron Hernández [facility] Course: This is a 54-year-old gentleman patient of mc and Dr Jorgensen with history of CAD, CABG, previous CVA involving the occipital lobe,chronic tobacco use and cigar use, moderate alcohol consumption. His cardiac history are as follows:coronary artery disease multiple procedure including bypass grafting 2008 which is [place] to the LAD and saphenous vein graft to the diagonal 1 saphenous vein graft to the diagonal 2 and saphenous vein graft to the obtuse marginal and right coronary artery. His last heart catheterization was in November 2017 at which time circumflex had a 60-70% lesion with fractional flow reserve of that lesion to be ischemic at 0.80. Mid left circumflex normal, left circumflex distally normal. LAD with mild disease, right coronary artery chronically occluded at the proximal portion and fills with collaterals from the left coronary system. The saphenous vein graft to the first diagonal, saphenous vein graft to the second diagonal, saphenous vein graft to the obtuse marginal were all patent. [place] to LAD was atrophic and included in the midportion. Cici ent underwent drug-eluting stent to the proximal left circumflex. Patient was seen by Dr. Jorgensen about 2 weeks ago and he was scheduled to go for laboratory evaluation as well as a stress test scheduled to be done prior to his next appointment which would be in the summer, patient was doing fine he continues to struggle to lose weight, he has been doing fine otherwise, he had ravioli and breadsticks last night he went to bed around 12:00 woke up around 3:00 in the morning was coming of clammy sweat not feeling well nauseated had 3 Ren bowel movement and he was completely left-sided chest and the same time he ended up coming to the ER via EMS for evaluation, his laboratory evaluation were negative chest x-ray did not show any evidence of acute of normalities, because of the presentation and his a prior history was admitted to the hospital for evaluation by cardiology abdominal x-ray still pending. 04/12: Patient abdominal x-ray yesterday showed ileus underwent computed tomography scan of the abdomen and pelvis with oral contrast that showed evidence ecchymosis that evidence of diverticulitis, patient continued to have some abdominal distention, he continued to have some minimal rectal bleeding at his medicines yesterday, we will consult Dr. dunlap for evaluation he did have a colonoscopy I believe back in 2016 and he had hemorrhoid banding at that time, this is could be all related to that we will continue to monitor, patient has no chest pain today has no shortness breath at this time, he continued to be bloated, he ate his breakfast today he did not have any nausea or vomiting, is scheduled to go for a Lexiscan stress test tomorrow morning for evaluation of his chest pain that I believe its atypical. 04/13: Lexiscan stress test revealed old apical infarct but suspected mild vernon- infarct ischemia. Additional suspicious reversibility seen along the mid inferior lateral wall. Patient is now scheduled for heart catheterization tomorrow with Dr. Jorgensen. He has been afebrile, heart rate 70, blood pressure 116/78, pulse ox 96% on room air. Hemoglobin 12.5. Electrolytes normal, creatinine 1.3. Blood sugars running between 100-166. 04/14: The patient denies having any chest pain. He states he is a little anxious to have the heart catheterization which is scheduled today. He is an add on and expected to be scheduled later in the day. He states that he had a little bit of blood in his stool last night. He has been afebrile, heart rate 64, blood pressure 130/87, pulse ox 96% on room air. Blood sugars are running between 97 and 32. Hemoglobin 12.6. Discussed with patient need for weight loss. 04/15: Yesterday, patient underwent heart catheterization with Dr. Jorgensen revealing critical stenosis and a stented segment of the proximal left circumflex with appearance of being under-deployed stent. Chronically occluded right coronary artery. Patent saphenous vein graft to the obtuse marginal branch and the first diagonal branch with retrograde flow into the LAD. Inability to cannulate the saphenous vein graft to the diagonal branch 2 with possibility that this is occluded. Occluded saphenous vein graft to the right coronary artery. Patient then underwent successful angioplasty of the proximal in-stent restenosis of the left circumflex. This was done through the right radial with no signs of hematoma or bleeding today. Patient denies having any chest pain. Cardiology is waiting for report from [facility] and he is tentatively scheduled from repeat cath tomorrow. Dr. Cardona will have follow up after discharge regarding GI bleeding workup. Patient has been afebrile, heart rate 69, blood pressure 134/89, pulse ox 96% on room air. Repeat blood work reveals normal electrolytes. BUN 14 and creatinine 1.3. Blood sugars running b etween 90 and 125. 04/16: Patient states that he slept well last night. He denies any further rectal bleeding. He denies having any chest pain or shortness of breath. No lightheadedness or dizziness. Dr. Jorgensen has determined that the there would be no repeat heart catheterization at this time. Patient was cleared for discharge home. He has been afebrile, heart rate 78, blood pressure 116/68, pulse ox 95% on room air. 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 Blood sugars running 90- 133. Patient will be discharged home today in stable condition. Discharge diagnoses: 1. Chest pain secondary to coronary artery disease progression status post heart catheterization and successful angioplasty of the proximal in-stent restenosis of the left circumflex. 2. Possible gastroenteritis, 3. Rectal bleed likely related to hemorrhoids versus diverticular bleed. Consult Dr. Cardona from general surgery. Plan is for outpatient workup. 4. CAD with prior bypass surgery and percutaneous coronary interventions. 5. COPD without exacerbation. 6. CKD stage II. 7. Ischemic cardiomyopathy with angina with multivessel coronary artery disease. 8. Hypertension and hypertensive cardiovascular disease. 9. Hyperlipidemia. 10. Recurrent gastritis and GERD. 11. Chronic tobacco use. 12. Morbid obesity with BMI of 39.7. Discharge plan: Home Impression and plan of care have been directed as dictated by the signing physician. Karissa Moncada nurse practitioner acting as scribe for signing physician. Patient Condition at Discharge: Good Plan - Discharge Summary Discharge Rx Participant: No New Discharge Prescriptions: Continue Nitroglycerin Sl Tabs [Nitrostat] 0.4 mg SUBLINGUAL Q5M PRN PRN Reason: Chest Pain Atorvastatin [Lipitor] 80 mg PO HS Metoprolol Tartrate [Lopressor] 50 mg PO BID Ranolazine [Ranexa] 1,000 mg PO BID Pantoprazole Sodium [Protonix] 40 mg PO DAILY Isosorbide Mononitrate ER [Imdur] 60 mg PO BID Aspirin [Adult Low Dose Aspirin EC] 81 mg PO HS amLODIPine [Norvasc] 2.5 mg PO DAILY lisinopriL [Zestril] 20 mg PO DAILY metFORMIN HCL [Glucophage] 500 mg PO BID #0 Clopidogrel Bisulfate [Plavix] 75 mg PO DAILY HYDROcodone/APAP 5-325MG [[place] 5-325] 1 tab PO DAILY PRN PRN Reason: Pain ALPRAZolam [Xanax] 0.25 mg PO BID PRN PRN Reason: Anxiety Discharge Medication List Atorvastatin [Lipitor] 80 mg PO HS 06/25/13 [History] Metoprolol Tartrate [Lopressor] 50 mg PO BID 06/25/13 [History] Nitroglycerin Sl Tabs [Nitrostat] 0.4 mg SUBLINGUAL Q5M PRN 06/25/13 [History] Ranolazine [Ranexa] 1,000 mg PO BID 09/23/13 [History] Pantoprazole Sodium [Protonix] 40 mg PO DAILY 07/02/14 [History] Isosorbide Mononitrate ER [Imdur] 60 mg PO BID 10/13/15 [History] Aspirin [Adult Low Dose Aspirin EC] 81 mg PO HS 01/11/16 [History] amLODIPine [Norvasc] 2.5 mg PO DAILY 09/26/17 [History] lisinopriL [Zestril] 20 mg PO DAILY 09/26/17 [History] metFORMIN HCL [Glucophage] 500 mg PO BID #0 11/27/17 [Rx] Clopidogrel Bisulfate [Plavix] 75 mg PO DAILY 10/15/18 [History] ALPRAZolam [Xanax] 0.25 mg PO BID PRN 04/11/20 [History] HYDROcodone/APAP 5-325MG [[place] 5-325] 1 tab PO DAILY PRN 04/11/20 [History] Follow up Appointment(s)/Referral(s): Freda Jorgensen MD [STAFF PHYSICIAN] - 1 Week (office will call you with an appt.) Sharron Hernández MD [Primary Care Provider] - 04/21/20 11:30 am Patient Instructions/Handouts: Chest Pain (ED), After Radial Heart Catheterization (GEN) Discharge Disposition: HOME SELF-CARE
--- NOTE | 2020-04-16 13:06 | P.PN ---
Subjective Progress Note Date: 04/16/20 HISTORY OF PRESENT ILLNESS: 04/11/2020 This is a 54-year-old male with a past medical history significant for diabetes mellitus, hypertension, hyperlipidemia, CVA, and coronary artery disease with previous CABG and stenting. Patient follows in the office with Dr Jorgensen. We have been asked to see the patient in consultation for chest pain. Patient reports he woke up around 3 AM with chest discomfort. He states this was on the left side of his chest and felt like a heavy pressure. He states the pain radiated down his left arm. He reports feeling nauseated. He reports diaphor esis. He denies any significant shortness of breath. He states the discomfort lasts until about 6 AM. He called EMS and was transported to the hospital. He reports receiving nitro and aspirin in route to the hospital which relieved his pain. The patient continues to report some mild nausea and chest discomfort this morning. He is currently rating his pain 1/10. The patient underwent cardiac catheterization in November [address] Santoyo revealing mild disease of the left main coronary artery, mild disease involving the left anterior descending artery. [place] to LAD is atrophic because there is no obstructive disease in the LAD. Patent saphenous vein graft to the first and second diagonal branches of the LAD. Severe disease involving the proximal left circumflex coronary artery. Patent saphenous vein graft to OM branch of the left circumflex. Chronic total occlusion of the right coronary artery. Known occluded SVG to RCA which was documented from previous heart cath. Patient underwent successful stenting of the proximal left circumflex. Patient states he was hospitalized in March 2019 at [facility] and states he had a heart catheterization performed at that time with a stent placed. Patient is unsure which vessel was stented. EKG reveals sinus mechanism with T-wave inversions in lead 1, aVL, and V2 Chest xray no acute pulmonary process Laboratory data: WBC 8.1. Hemoglobin 14.3. Platelet count 235. Sodium 137. Potassium 4.7. BUN 29. Creatinine 1.30. Magnesium 1.7. Troponin negative 1. BNP 70. Current home cardiac medications include lisinopril 20 mg daily, amlodipine 2.5 mg daily, Ranexa 1000 g twice a day, metoprolol tartrate 50 mg twice a day, Imdur 60 mg twice a day, Plavix 75 mg daily, Lipitor 80 mg daily, and aspirin 81 mg daily 04/12/2020 Patient examined this morning at the bedside. Patient denies chest pain or p ressure. He denies shortness of breath. Troponins negative 3. IV heparin was discontinued yesterday. Echocardiogram completed revealed ejection fraction 55- 60%, trace mitral regurgitation, and trace tricuspid regurgitation. 04/14/2020-Per Michelle Portillo dictation Catheterization report reviewed yesterday from [facility] that was performed March 2019 revealing left main widely patent, [place] circumflex with severe in-stent restenosis in the proximal portion, LAD patent, RCA is occluded, graft to the right is occluded, graft to the diagonal is patent, graft to the OM is patent with a 50% ostial stenosis. At that time he underwent successful PCI of the [place] circumflex stent. 04/15/2020 Patient underwent cardiac cath yesterday with Dr. Jorgensen revealing critical stenosis in the stented segment of the proximal left circumflex with appearance of been under quite stent. Chronically occluded right coronary artery. Patent saphenous vein graft to the obtuse marginal branch and the first diagonal branch with retrograde flow into the LAD. Inability to cannulate the saphenous vein graft to the diagonal branch to with the possibility that it is occluded. Occluded saphenous vein graft to the right coronary artery. Patient underwent angioplasty of the proximal in-stent restenosis of the left circumflex with reduction of stenosis from 95% to less than 20%. Patient examined this morning at bedside. He denies chest pain or pressure. He denies shortness of breath. Vital signs are stable. Potassium 4.4. BUN 14. Creatinine 1.30. 04/16/2020 Patient examined this morning at the bedside. Patient denies chest pain or pressure. Denies shortness of breath. Dr. Jorgensen re-evaluated patient this morning as well. No plans for repeat cardiac cath at this time. PHYSICAL EXAM: VITAL SIGNS: Reviewed. GENERAL: Well-developed in no acute distress. HEENT: Head is normocephalic. Pupils are equal, round. Sclerae anicteric. Mucous membranes of the mouth are moist. Neck supple. No JVD or thyromegaly LUNGS: Respirations even and unlabored. Lungs diminished bilaterally. HEART: Regular rate and rhythm. S1 and S2 heard. ABDOMEN: Soft. Nondistended. Nontender. EXTREMITIES: Normal range of motion. No clubbing or cyanosis. Peripheral pulses intact. No lower extremity edema. Left radial cath site with pulse present. NEUROLOGIC: Awake and alert. Oriented x 3. ASSESSMENT: Chest pain, troponins negative 3, status post cardiac catheterization with angioplasty of the left circumflex Coronary artery disease with previous CABG and multivessel PCI Hypertension Hyperlipidemia Diabetes mellitus Chronic kidney disease History of CVA Anxiety Depression Nicotine dependence Morbid obesity PLAN: Continue current cardiac medications Patient may be discharged home today from a cardiac standpoint Follow up outpatient with Dr. Jorgensen Nurse practitioner note has been reviewed by physician. Signing provider agrees with the documented findings, assessment, and plan of care. Objective - Vital Signs Vital signs: Vital Signs Temp 98.1 F 04/16/20 08:00 Pulse 77 04/16/20 08:00 Resp 16 04/16/20 08:00 BP 124/87 04/16/20 08:00 Pulse Ox 96 04/16/20 08:01 Intake & Output 04/15/20 04/16/20 04/16/20 18:59 06:59 18:59 Intake Total 994 10 Balance 994 10 Weight 131 kg 130.1 kg Intake: IV 10 0.9 10 Intake, IV Titration 300 Amount Sodium Chloride 0.9% 1, 300 000 ml @ 75 mls/hr IV . [id number] [facility] Rx#:[id number] Oral 694 Other: Voiding Method Toilet Toilet Toilet # Voids 3 1 - Labs CBC & Chem 7: 04/14/20 06:45 04/15/20 07:34 Labs: Abnormal Lab Results - Last 24 Hours (Table) 04/15/20 04/16/20 Range/Units 19:50 06:14 POC Glucose (mg/dL) 133 H 107 H (75-99) mg/dL
== END 2020-04-16 11:26 | disposition home or self-care (01) | DRG 247 ==
LOC: EC 04:08 → 6NMEDSUR 06:01 → OBSVTOIN 04-13 14:38 → 3SCARD 04-13 15:55
PROVIDERS: ADMIT Internal Medicine; ATTEND Internal Medicine
PROC: B2111ZZ Fluoroscopy of Multiple Coronary Arteries using Low Osmolar Contrast (ICD-10-PCS; principal; 2020-04-14 07:30)
PROC: 027034Z Dilation of Coronary Artery, One Artery with Drug-eluting Intraluminal Device, Percutaneous Approach (ICD-10-PCS; principal; 2020-04-14 07:30)
PROC: B3101ZZ Fluoroscopy of Thoracic Aorta using Low Osmolar Contrast (ICD-10-PCS; principal; 2020-04-14 07:30)
PROC: 4A023N7 Measurement of Cardiac Sampling and Pressure, Left Heart, Percutaneous Approach (ICD-10-PCS; principal; 2020-04-14 07:30)
PROC: B2131ZZ Fluoroscopy of Multiple Coronary Artery Bypass Grafts using Low Osmolar Contrast (ICD-10-PCS; principal; 2020-04-14 07:30)
DX: T82.855A Stenosis of coronary artery stent, initial encounter (principal); I25.810 Atherosclerosis of coronary artery bypass graft(s) without angina pectoris; I25.110 Atherosclerotic heart disease of native coronary artery with unstable angina pectoris; K56.7 Ileus, unspecified; I25.82 Chronic total occlusion of coronary artery; Y83.1 Surgical operation with implant of artificial internal device as the cause of abnormal reaction of the patient, or of later complication, without mention of misadventure at the time of the procedure; N18.2 Chronic kidney disease, stage 2 (mild); K64.9 Unspecified hemorrhoids; E11.22 Type 2 diabetes mellitus with diabetic chronic kidney disease; E11.40 Type 2 diabetes mellitus with diabetic neuropathy, unspecified; Z79.84 Long term (current) use of oral hypoglycemic drugs; E66.01 Morbid (severe) obesity due to excess calories; E78.5 Hyperlipidemia, unspecified; F17.290 Nicotine dependence, other tobacco product, uncomplicated; F32.9 Major depressive disorder, single episode, unspecified; F41.9 Anxiety disorder, unspecified; Z20.822 Contact with and (suspected) exposure to COVID-19; I13.10 Hypertensive heart and chronic kidney disease without heart failure, with stage 1 through stage 4 chronic kidney disease, or unspecified chronic kidney disease; I25.2 Old myocardial infarction; I25.5 Ischemic cardiomyopathy; J44.9 Chronic obstructive pulmonary disease, unspecified; K21.9 Gastro-esophageal reflux disease without esophagitis; K29.70 Gastritis, unspecified, without bleeding; K57.90 Diverticulosis of intestine, part unspecified, without perforation or abscess without bleeding; Z68.39 Body mass index [BMI] 39.0-39.9, adult; Z79.02 Long term (current) use of antithrombotics/antiplatelets; Z79.82 Long term (current) use of aspirin; Z79.899 Other long term (current) drug therapy; Z80.1 Family history of malignant neoplasm of trachea, bronchus and lung; Z82.49 Family history of ischemic heart disease and other diseases of the circulatory system; Z86.73 Personal history of transient ischemic attack (TIA), and cerebral infarction without residual deficits; Z87.442 Personal history of urinary calculi; Z80.42 Family history of malignant neoplasm of prostate; G89.29 Other chronic pain; Z87.01 Personal history of pneumonia (recurrent); Z87.898 Personal history of other specified conditions; Z90.49 Acquired absence of other specified parts of digestive tract; Z87.440 Personal history of urinary (tract) infections
CPT/HCPCS: 36415; 71046; 74019; 74177; 78452; 80048; 80053; 80061; 82272; 82550; 83690; 83735; 83880; 84484; 85025; 85347; 85610; 85730; 87324; 87635; 92920; 93005; 93017; 93306; 93459; 93567; 94760; 99291

== ENCOUNTER 2021-07-03 00:13 | Emergency (ER) | payer MEDICARE, OTHER ==
[2021-07-03 00:23] VITALS: TEMP 97.7
[2021-07-03 01:06] LABS: Basophils % (A) 0 %; Eosinophils % (A) 0 %; HCT 39.9 % (39.0-53.0); HGB 12.9 gm/dL (13.0-17.5); Hypochromasia Slight; Lymphocytes # (A) 2.1 k/uL (1.0-4.8); Lymphocytes % (A) 33 %; MCHC 32.3 g/dL (31.0-37.0); MCV 89.7 fL (80.0-100.0); Mean Platelet Volume 7.2; Monocytes # (A) 0.4 k/uL (0-1.0); Monocytes % (A) 6 %; Neutrophils # (A) 3.7 k/uL (1.3-7.7); Neutrophils % (A) 59 %; Platelet Count 253 k/uL (150-450); RBC 4.45 m/uL (4.30-5.90); RDW 15.8 % (11.5-15.5); WBC 6.4 k/uL (3.8-10.6)
--- NOTE | 2021-07-03 01:09 | XR ---
EXAMINATION TYPE: XR chest 2V DATE OF EXAM: 07/03/2021 COMPARISON: 04/11/2020 HISTORY: Chest pain TECHNIQUE: FINDINGS: Heart is normal. Lungs are clear of infiltrate. Diaphragm is normal. Bony thorax is intact. There are sternal wires. Pulmonary vascularity is normal. IMPRESSION: Normal chest. No change.
[2021-07-03 01:12] LABS: Partial Thromboplastin Time 23.4 sec (22.0-30.0); Prothrombin Time 11.1 sec (9.0-12.0)
[2021-07-03 01:32] LABS: Calcium 8.7 mg/dL (8.4-10.2); Magnesium 1.7 mg/dL (1.6-2.3); Total Protein 6.7 g/dL (6.3-8.2)
--- NOTE | 2021-07-03 04:48 | ED ---
Chest Pain HPI - General Chief Complaint: Chest Pain Stated Complaint: Chest Pressure, vomiting Time Seen by Provider: 07/03/21 04:30 Source: patient Mode of arrival: wheelchair Limitations: no limitations - History of Present Illness Initial Comments: 's patient is a 55-year-old man who presents with 2 days of intermittent left sided chest sensations. I hear first of them as twinges. He states that there is a very mild squeezing sensation that comes and goes. He states that it will last for 1-2 minutes. It resolves but recurs. Tonight he had one episode of vomiting so he felt he should be seen about this. He denies any other symptoms, there is no dyspnea, diaphoresis, palpitations, lightheadedness or syncope. MD Complaint: chest pain Onset/Timin -: days(s) Onset: during rest Pain Location: left chest Pain Radiation: none Severity: mild Quality: tightness Consistency: intermittent Improves With: nothing Worsens With: nothing Anginal Symptoms: vomiting Treatments Prior to Arrival: nitroglycerin - Related Data Home Medications Medication Instructions Recorded Confirmed Atorvastatin [Lipitor] 80 mg PO HS 06/25/13 04/11/20 Metoprolol Tartrate [Lopressor] 50 mg PO BID 06/25/13 04/11/20 Nitroglycerin Sl Tabs [Nitrostat] 0.4 mg SUBLINGUAL Q5M PRN 06/25/13 04/11/20 Ranolazine [Ranexa] 1,000 mg PO BID 09/23/13 04/11/20 Pantoprazole Sodium [Protonix] 40 mg PO DAILY 07/02/14 04/11/20 Isosorbide Mononitrate ER [Imdur] 60 mg PO BID 10/13/15 04/11/20 Aspirin [Adult Low Dose Aspirin EC] 81 mg PO HS 01/11/16 04/11/20 amLODIPine [Norvasc] 2.5 mg PO DAILY 09/26/17 04/11/20 lisinopriL [Zestril] 20 mg PO DAILY 09/26/17 04/11/20 Clopidogrel Bisulfate [Plavix] 75 mg PO DAILY 10/15/18 04/11/20 ALPRAZolam [Xanax] 0.25 mg PO BID PRN 04/11/20 04/11/20 HYDROcodone/APAP 5-325MG [[place] 1 tab PO DAILY PRN 04/11/20 04/11/20 5-325] Previous Rx's Medication Instructions Recorded metFORMIN HCL [Glucophage] 500 mg PO BID #0 11/27/17 Allergies Allergy/AdvReac Type Severity Reaction Status Date / Time chocolate flavor Allergy Rash/Hives Verified 04/11/20 07:52 [place] And Derivatives Allergy Rash/Hives Verified 04/11/20 07:52 [[place]] Review of Systems ROS Statement: Those systems with pertinent positive or pertinent negative responses have been documented in the HPI. ROS Other: All systems not noted in ROS Statement are negative. Constitutional: Denies: fever, chills Respiratory: Denies: cough, dyspnea Cardiovascular: Reports: chest pain. Denies: palpitations, orthopnea, edema, syncope Gastrointestinal: Reports: vomiting. Denies: abdominal pain, nausea, diarrhea, hematemesis Genitourinary: Denies: dysuria, hematuria Musculoskeletal: Denies: back pain Skin: Denies: rash Neurological: Denies: headache, weakness EKG Findings - EKG Comments: EKG Findings:: There are T inversions in leads 1 and aVL, these are present on the comparison ECG - EKG Results: EKG: interpreted by ERMD, sinus rhythm, normal axis, normal QRS Past Medical History Past Medical History: Coronary Artery Disease (CAD), Chest Pain / Angina, CVA/TIA, Diabetes Mellitus, GI Bleed, Hyperlipidemia, Hypertension, Myocardial Infarction (NM), Pneumonia Additional Past Medical History / Comment(s): 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 Last Myocardial Infarction Date:: 01-22-2011 History of Any Multi-Drug Resistant Organisms: None Reported Past Surgical History: Adenoidectomy, Cholecystectomy, Coronary Bypass/CABG, Heart Catheterization, Heart Catheterization With Stent, Hernia Repair Additional Past Surgical History / Comment(s): Several caths with last one done 11/23 treated medically, total 6 stents (states placed 01/2011, and 03/2019), CABG 5 vessel in 2008 (stents came after open heart was done), EGD/colonoscopy, hemorrhoid banding, umbilical hernia repair Past Anesthesia/Blood Transfusion Reactions: Previous Problems w/ Anesthesia Additional Past Anesthesia/Blood Transfusion Reaction / Comment(s): stated "wakes up slower than normal" Date of Last Stent Placement:: 11/2017 Past Psychological History: Anxiety, Depression Smoking Status: Former smoker Past Alcohol Use History: Occasional Past Drug Use History: Marijuana - Past Family History Father Family Medical History: Coronary Artery Disease (CAD) Additional Family Medical History / Comment(s): dad is 75. stents, bypass, prostate and lung cancer. Mother Additional Family Medical History / Comment(s): mom 1997 at age 59- brain aneurysm General Exam Limitations: no limitations General appearance: alert, in no apparent distress Head exam: Present: atraumatic, normocephalic Eye exam: Present: normal appearance. Absent: scleral icterus, conjunctival injection Neck exam: Present: normal inspection Respiratory exam: Present: normal lung sounds bilaterally. Absent: respiratory distress, wheezes, rales, rhonchi, stridor Cardiovascular Exam: Present: regular rate, normal rhythm, normal heart sounds. Absent: systolic murmur, diastolic murmur, rubs, gallop GI/Abdominal exam: Present: soft. Absent: distended, tenderness, guarding, rebound, rigid, mass Extremities exam: Present: normal inspection, normal capillary refill. Absent: pedal edema, calf tenderness Back exam: Present: normal inspection. Absent: CVA tenderness (R), CVA tenderness (L) Neurological exam: Present: alert Skin exam: Present: warm, dry, intact, normal color. Absent: rash Course Vital Signs 07/03/21 07/03/21 07/03/21 00:20 05:16 06:07 Temperature 97.7 F Pulse Rate 81 59 L 60 Respiratory 16 13 15 Rate Blood Pressure 132/89 131/91 124/86 O2 Sat by Pulse 98 96 97 Oximetry 07/03/21 06:10 Temperature Pulse Rate 60 Respiratory 18 Rate Blood Pressure O2 Sat by Pulse 97 Oximetry Chest Pain MDM - MDM This patient is 55-year-old man with chest pain going on her mainly 2 days. His workup here is unremarkable. On reevaluation, patient states she is feeling well and would like to go home. I his symptoms have resolved. We discussed appropriate further care and follow-up. He states that he has already scheduled appointment with cardiology in 2 days. Reviewed return parameters. Disposition Clinical Impression: Chest pain Disposition: HOME SELF-CARE Condition: Good Instructions (If sedation given, give patient instructions): Chest Pain (ED) Is patient prescribed a controlled substance at d/c from ED?: No Referrals: Sharron Hernández MD [Primary Care Provider] - 1-2 days
[2021-07-03 06:22] VITALS: PULSE 60; RESP 18
[2021-07-03 06:53] VITALS: BP 144/76
== END 2021-07-03 07:02 | disposition home or self-care (01) ==
LOC: EC 00:13
DX: R07.89 Other chest pain (principal); I10 Essential (primary) hypertension; E11.9 Type 2 diabetes mellitus without complications; E78.5 Hyperlipidemia, unspecified; I25.2 Old myocardial infarction; Z86.73 Personal history of transient ischemic attack (TIA), and cerebral infarction without residual deficits; I25.10 Atherosclerotic heart disease of native coronary artery without angina pectoris; Z79.1 Long term (current) use of non-steroidal anti-inflammatories (NSAID); Z91.018 Allergy to other foods
CPT/HCPCS: 36415; 71046; 80053; 83735; 84484; 85025; 85610; 85730; 93005

== ENCOUNTER 2022-05-17 07:03 | Day surgery (SDC) | payer MEDICARE, OTHER ==
[2022-05-12 09:36] VITALS: BMI 38.3
[~2022-05-17 07:03] MED LIST changes: +LIDOCAINE 1% (10MG/ML) FOR IV START INTRADERMA PRN; -SODIUM CHLORIDE 0.9% 1,000 ML IV SCH
[2022-05-17 07:34] VITALS: TEMP 97.9
[2022-05-17 07:43] LABS: Glucose,Whole Blood 103 mg/dL (70-110)
[2022-05-17] MEDS: LACTATED RINGERS 1,000 ML IV SCH ×2 (07:43→07:57)
[2022-05-17] MEDS ORDERED: PROPOFOL 10 MG/ML 20 ML VIAL IV ONE (07:58)
[2022-05-17] MEDS ORDERED: LIDOCAINE 2% INJ 20 MG/ML (2 ML VIAL) ONE (07:58)
--- NOTE | 2022-05-17 08:04 | P.GSHP ---
History of Present Illness H&P Date: 05/17/22 Chief Complaint: Colon cancer screening 56-year-old male here today for colonoscopy. Last colonoscopy 5 years ago. Patient with history of small polyp no bowel complaints. Polyps were not adenomatous previously. 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 Last Myocardial Infarction Date:: 2020 History of Any Multi-Drug Resistant Organisms: None Reported Past Surgical History: Adenoidectomy, Cholecystectomy, Coronary Bypass/CABG, Heart Catheterization, Heart Catheterization With Stent, Hernia Repair Additional Past Surgical History / Comment(s): Several caths with last one done 11/26 total 7 stents (states placed 01/2011, and 03/2019. 2020), CABG 5 vessel in 2008 (stents came after open heart was done), EGD/colonoscopy, hemorrhoid banding, umbilical hernia repair Past Anesthesia/Blood Transfusion Reactions: Previous Problems w/ Anesthesia Additional Past Anesthesia/Blood Transfusion Reaction / Comment(s): stated "wakes up slower than normal" Date of Last Stent Placement:: 04/26 Smoking Status: Former smoker, Vaper - Past Family History Father Family Medical History: Cancer, Coronary Artery Disease (CAD) Additional Family Medical History / Comment(s): dad is 75. stents, bypass, prostate and lung cancer. Mother Additional Family Medical History / Comment(s): mom 1997 at age 59- brain aneurysm Medications and Allergies Home Medications Medication Instructions Recorded Confirmed Type Atorvastatin [Lipitor] 80 mg PO HS 06/25/13 05/17/22 History Metoprolol Tartrate [Lopressor] 50 mg PO BID 06/25/13 05/17/22 History Nitroglycerin Sl Tabs [Nitrostat] 0.4 mg SUBLINGUAL Q5M PRN 06/25/13 05/17/22 History Ranolazine [Ranexa] 1,000 mg PO BID 09/23/13 05/17/22 History Pantoprazole Sodium [Protonix] 40 mg PO DAILY 07/02/14 05/17/22 History Isosorbide Mononitrate ER [Imdur] 60 mg PO BID 10/13/15 05/17/22 History Aspirin [Adult Low Dose Aspirin EC] 81 mg PO HS 01/11/16 05/17/22 History amLODIPine [Norvasc] 2.5 mg PO DAILY 09/26/17 05/17/22 History lisinopriL [Zestril] 20 mg PO DAILY 09/26/17 05/17/22 History metFORMIN HCL [Glucophage] 500 mg PO BID #0 11/27/17 05/17/22 Rx ALPRAZolam [Xanax] 0.25 mg PO BID PRN 04/11/20 05/17/22 History HYDROcodone/APAP 5-325MG [[place] 1 tab PO DAILY PRN 04/11/20 05/17/22 History 5-325] Cholecalciferol (Vitamin D3) 1 tab PO DAILY 05/12/22 05/17/22 History [Vitamin D3 (500 Iu/5 ML)] Semaglutide [Ozempic] 0.5 mg SQ DAILY 05/12/22 05/17/22 History Vit B Complex/ Vitamin C Gummy 1 tab PO DAILY 05/12/22 05/17/22 History Allergies Allergy/AdvReac Type Severity Reaction Status Date / Time chocolate flavor Allergy Rash/Hives Verified 05/17/22 07:23 [place] And Derivatives Allergy Rash/Hives Verified 05/17/22 07:23 [[place]] Surgical - Exam Vital Signs Temp Pulse Resp BP Pulse Ox 97.9 F 81 20 117/80 97 05/17/22 07:33 05/17/22 07:33 05/17/22 07:33 05/17/22 07:33 05/17/22 07:33 Physical exam: General: Well-developed, well-nourished HEENT: Normocephalic, sclerae nonicteric Abdomen: Nontender, nondistended Extremities: No edema Neuro: Alert and oriented Assessment and Plan (1) Colon cancer screening Narrative/Plan: Will proceed with colonoscopy at this time. Current Visit: Yes Status: Acute Code(s): Z12.11 - ENCOUNTER FOR SCREENING FOR MALIGNANT NEOPLASM OF COLON SNOMED Code(s): 948858979
--- NOTE | 2022-05-17 08:24 | P.PCN ---
Date of Procedure: 05/17/22 Procedure(s) Performed: PREOPERATIVE DIAGNOSIS: Colon cancer screening POSTOPERATIVE DIAGNOSIS: Cecal polyp, transverse colon polyp, poor prep, mild diverticulosis PROCEDURE: Colonoscopy with snare polypectomy and biopsy ANESTHESIA: MAC SURGEON: Arnie Cardona M.D. SPECIMENS: Polyps ENDOSCOPIC PROCEDURE: The patient was placed on the endoscopy table in the left decubitus position. The Olympus colonoscope was inserted into the anus and passed under direct visualization to the base of the cecum. The appendiceal orifice was visualized. From that point the scope was slowly withdrawn inspecting all surfaces carefully. At the cecum there was a small superficial polyp removed using the cold biopsy forceps. The remainder of the ascending colon and proximal transverse colon appeared normal. In the mid transverse colon a small flat polyp was seen and removed using the snare without cautery technique. The remainder of the transverse descending sigmoid and rectum appeared visibly normal however the patient's prep was poor and there was retained solid and liquid stool scattered throughout the colon. There was mild left-sided diverticulosis. Digital rectal examination was normal. The patient was taken to the recovery room in stable condition per anesthesia guidelines. RECOMMENDATIONS: Await biopsy results. Recommend repeat colonoscopy in 1-2 years given the poor prep today and the polyps seen.
[2022-05-17 09:17] VITALS: RESP 18
[2022-05-17 09:19] VITALS: BP 101/68; PULSE 77
== END 2022-05-17 09:13 | disposition home or self-care (01) ==
LOC: ORWHC2ENDO 07:03
PROVIDERS: ATTEND Surgery
DX: Z12.11 Encounter for screening for malignant neoplasm of colon (principal); D12.0 Benign neoplasm of cecum; K57.30 Diverticulosis of large intestine without perforation or abscess without bleeding; I25.119 Atherosclerotic heart disease of native coronary artery with unspecified angina pectoris; I25.2 Old myocardial infarction; I10 Essential (primary) hypertension; E78.5 Hyperlipidemia, unspecified; E11.40 Type 2 diabetes mellitus with diabetic neuropathy, unspecified; G47.33 Obstructive sleep apnea (adult) (pediatric); J18.9 Pneumonia, unspecified organism; G43.909 Migraine, unspecified, not intractable, without status migrainosus; Z87.442 Personal history of urinary calculi; Z86.73 Personal history of transient ischemic attack (TIA), and cerebral infarction without residual deficits; Z87.39 Personal history of other diseases of the musculoskeletal system and connective tissue; Z86.69 Personal history of other diseases of the nervous system and sense organs; E55.9 Vitamin D deficiency, unspecified; Z90.49 Acquired absence of other specified parts of digestive tract; Z95.1 Presence of aortocoronary bypass graft; Z95.5 Presence of coronary angioplasty implant and graft; Z98.890 Other specified postprocedural states; Z87.891 Personal history of nicotine dependence; Z82.49 Family history of ischemic heart disease and other diseases of the circulatory system; Z80.1 Family history of malignant neoplasm of trachea, bronchus and lung; Z80.42 Family history of malignant neoplasm of prostate; Z79.82 Long term (current) use of aspirin; Z79.899 Other long term (current) drug therapy; Z79.84 Long term (current) use of oral hypoglycemic drugs; Z91.018 Allergy to other foods
CPT/HCPCS: 88305; 45385; 45380; J2704; J2001

== ENCOUNTER 2022-07-04 09:08 | Inpatient (IN) | payer MEDICARE, OTHER ==
[2022-07-04] MEDS ORDERED: SODIUM CHLORIDE 0.9% 500 ML 500 ML IV STA (09:21)
[2022-07-04] MEDS ORDERED: DIPHENOX-ATROP 2.5-0.025 MG 1 EACH TAB PO STA (09:21)
[2022-07-04] MEDS ORDERED: NITROGLYCERIN OINT 1 INCH/GM PACKET TOPICAL STA (09:21)
[2022-07-04] MEDS ORDERED: ASPIRIN 81 MG PO STA (09:21)
--- NOTE | 2022-07-04 09:25 | ED ---
General Adult HPI - General Chief complaint: Nausea/Vomiting/Diarrhea Stated complaint: Nausea, vomiting Time Seen by Provider: 07/04/22 09:10 Source: patient, EMS, RN notes reviewed, old records reviewed Mode of arrival: EMS Limitations: no limitations - History of Present Illness Initial comments: This a 56-year-old male who presents emergency Department stating he woke up this morning had diarrhea and then started vomiting. Patient states shortly after that he started having chest pressure he states it's better than it was but this continues to be there now. Patient states she's also short of breath with this chest pressure. Patient denies any diaphoretic episodes. Patient denies any palpitations. Patient denies any recent fever chills. Patient denies any abdominal pain states he just feels nauseous and had his first episode of diarrhea home. Patient denies any back pain. Patient has a history of bypass surgery multiple stents diabetes hypertension high cholesterol and he quit smoking one year ago - Related Data Home Medications Medication Instructions Recorded Confirmed Atorvastatin [Lipitor] 80 mg PO HS 06/25/13 05/17/22 Metoprolol Tartrate [Lopressor] 50 mg PO BID 06/25/13 05/17/22 Nitroglycerin Sl Tabs [Nitrostat] 0.4 mg SUBLINGUAL Q5M PRN 06/25/13 05/17/22 Ranolazine [Ranexa] 1,000 mg PO BID 09/23/13 05/17/22 Pantoprazole Sodium [Protonix] 40 mg PO DAILY 07/02/14 05/17/22 Isosorbide Mononitrate ER [Imdur] 60 mg PO BID 10/13/15 05/17/22 Aspirin [Adult Low Dose Aspirin EC] 81 mg PO HS 01/11/16 05/17/22 amLODIPine [Norvasc] 2.5 mg PO DAILY 09/26/17 05/17/22 lisinopriL [Zestril] 20 mg PO DAILY 09/26/17 05/17/22 ALPRAZolam [Xanax] 0.25 mg PO BID PRN 04/11/20 05/17/22 HYDROcodone/APAP 5-325MG [[place] 1 tab PO DAILY PRN 04/11/20 05/17/22 5-325] Cholecalciferol (Vitamin D3) 1 tab PO DAILY 05/12/22 05/17/22 [Vitamin D3 (500 Iu/5 ML)] Semaglutide [Ozempic] 0.5 mg SQ DAILY 05/12/22 05/17/22 Vit B Complex/ Vitamin C Gummy 1 tab PO DAILY 05/12/22 05/17/22 Previous Rx's Medication Instructions Recorded metFORMIN HCL [Glucophage] 500 mg PO BID #0 11/27/17 Allergies Allergy/AdvReac Type Severity Reaction Status Date / Time chocolate flavor Allergy Rash/Hives Verified 07/04/22 09:13 [place] And Derivatives Allergy Rash/Hives Verified 07/04/22 09:13 [[place]] Review of Systems ROS Statement: Those systems with pertinent positive or pertinent negative responses have been documented in the HPI. ROS Other: All systems not noted in ROS Statement are negative. 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 Last Myocardial Infarction Date:: 2020 History of Any Multi-Drug Resistant Organisms: None Reported Past Surgical History: Adenoidectomy, Cholecystectomy, Coronary Bypass/CABG, Heart Catheterization, Heart Catheterization With Stent, Hernia Repair Additional Past Surgical History / Comment(s): Several caths with last one done 11/26 total 7 stents (states placed 01/2011, and 03/2019. 2020), CABG 5 vessel in 2008 (stents came after open heart was done), EGD/colonoscopy, hemorrhoid banding, umbilical hernia repair Past Anesthesia/Blood Transfusion Reactions: Previous Problems w/ Anesthesia Additional Past Anesthesia/Blood Transfusion Reaction / Comment(s): stated "w akes up slower than normal" Date of Last Stent Placement:: 04/26 Past Psychological History: Anxiety, Depression Smoking Status: Former smoker, Vaper - Past Family History Father Family Medical History: Cancer, Coronary Artery Disease (CAD) Additional Family Medical History / Comment(s): dad is 75. stents, bypass, prostate and lung cancer. Mother Additional Family Medical History / Comment(s): mom 1997 at age 59- brain aneurysm General Exam - General Exam Comments Initial Comments: GENERAL: Patient is well-developed and well-nourished. Patient is nontoxic and well- hydrated and is in mild distress. ENT: Neck is soft and supple. No significant lymphadenopathy is noted. Oropharynx is clear. Moist mucous membranes. Neck has full range of motion without eliciting any pain. EYES: The sclera were anicteric and conjunctiva were pink and moist. Extraocular movements were intact and pupils were equal round and reactive to light. Eyelids were unremarkable. PULMONARY: Unlabored respirations. Good breath sounds bilaterally. No audible rales rhonchi or wheezing was noted. CARDIOVASCULAR: There is a regular rate and rhythm without any murmurs gallops or rubs. ABDOMEN: Soft and nontender with normal bowel sounds. SKIN: Skin is clear with no lesions or rashes and otherwise unremarkable. NEUROLOGIC: Patient is alert and oriented x3. Cranial nerves II through XII are grossly intact. Motor and sensory are also intact. Normal speech, volume and content. Symmetrical smile. MUSCULOSKELETAL: Normal extremities with adequate strength and full range of motion. No lower extremity swelling or edema. No calf tenderness. LYMPHATICS: No significant lymphadenopathy is noted PSYCHIATRIC: Normal psychiatric evaluation. Limitations: no limitations Course Vital Signs 07/04/22 07/04/22 09:09 09:45 Temperature 98.4 F Pulse Rate 89 90 Respiratory 19 18 Rate Blood Pressure 134/92 O2 Sat by Pulse 96 96 Oximetry Medical Decision Making - Medical Decision Making EKG was interpreted by myself shows a sinus rhythm at 91 bpm [place] interval is 170 QRS is 98 QT interval 372 QTC is 421. Patient's EKG shows slight ST segment elevation 3 and aVF which was seen on previous EKG. Patient has T-wave inversions in 1 and aVL which are seen her previous EKG which were also seen on the Was pt. sent in by a medical professional or institution (, PA, CONTAMINATION CONSULTANT, urgent care, hospital, or correction...) When possible be specific @ -No Did you speak to anyone other than the patient for history (EMS, parent, family, police, friend...)? What history was obtained from this source @ -No Did you review nursing and triage notes (agree or disagree)? Why? @ -I reviewed and agree with nursing and triage notes Were old charts reviewed (outside hosp., previous admission, EMS record, old EKG, old radiological studies, urgent care reports/EKG's, correction records)? Report findings @ -Reviewed patient old charts old lab work and old radiological studies Differential Diagnosis (chest pain, altered mental status, abdominal pain women, abdominal pain men, vaginal bleeding, weakness, fever, dyspnea, syncope, headache, dizziness, GI bleed, back pain, seizure, CVA, palpatations, mental health, musculoskeletal)? @ -Differential Chest Pain: Stable Angina, Unstable Angina, STEMI, NSTEMI Aortic Dissection, Pneumothorax, Musculoskeletal, Esophageal Spasm GERD, Cholecystitis, Pancreatitis, Zoster, this is not meant to be an all-inclusive list. EKG interpreted by me (3pts min.). @ -As above X-rays interpreted by me (1pt min.). @ -Chest x-ray showed no acute abnormality. CT interpreted by me (1pt min.). @ -None done U/S interpreted by me (1pt. min.). @ -None done What testing was considered but not performed or refused? (CT, X-rays, U/S, labs)? Why? @ -None What meds were considered but not given or refused? Why? @ -None Did you discuss the management of the patient with other professionals (professionals i.e. , PA, CONTAMINATION CONSULTANT, lab, RT, psych nurse, social work manager, remnant sorter, teacher, senior administrative services officer, shelter case manager)? Give summary @ -Dr. Hernández agreed to admit the patient minute the patient Was smoking cessation discussed for >3mins.? @ -No Was critical care preformed (if so, how long)? @ -No Were there social determinants of health that impacted care today? How? (Homelessness, low income, unemployed, alcoholism, drug addiction, transportation, low edu. Level, literacy, decrease access to med. care, halfway, rehab)? @ -No Was there de-escalation of care discussed even if they declined (Discuss DNR or withdrawal of care, Hospice)? DNR status @ -No What co-morbidities impacted this encounter? (DM, HTN, Smoking, COPD, CAD, Cancer, CVA, ARF, Chemo, Hep., AIDS, mental health diagnosis, sleep apnea, morbid obesity)? @ -None Was patient admitted / discharged? Hospital course, mention meds given and route, prescriptions, significant lab abnormalities, going to OR and other pertinent info. @ -Patient's chest pain did improve in the emergency department. Patient no longer had any vomiting. Patient did continue to have chest pain during the ER visit however lab work was normal so I spoke with Dr. Hernández he agreed to admit the patient admitted the patient consult to cardiology Undiagnosed new problem with uncertain prognosis? @ -No Drug Therapy requiring intensive monitoring for toxicity (Heparin, Nitro, Insul in, Cardizem)? @ -No Were any procedures done? @ -No Diagnosis/symptom? @ -Chest discomfort Acute, or Chronic, or Acute on Chronic? @ -Acute Uncomplicated (without systemic symptoms) or Complicated (systemic symptoms)? @ -Complicated Side effects of treatment? @ -No Exacerbation, Progression, or Severe Exacerbation? @ -No Poses a threat to life or bodily function? How? (Chest pain, [place], [place], pneumonia, PE, COPD, DKA, ARF, appy, cholecystitis, CVA, Diverticulitis, Homicidal, Suicidal, threat to staff... and all critical care pts) @ -This could lead to an [place] and could eventually to end organ dysfunction Diagnosis/symptom? @ -Gastroenteritis Acute, or Chronic, or Acute on Chronic? @ -Acute Uncomplicated (without systemic symptoms) or Complicated (systemic symptoms)? @ -Complicated Side effects of treatment? @ -none Exacerbation, Progression, or Severe Exacerbation] @ -no Poses a threat to life or bodily function? @ -no - Lab Data Result diagrams: 07/04/22 09:35 07/04/22 09:35 Lab Results 07/04/22 07/04/22 07/04/22 Range/Units 09:35 09:35 09:35 WBC 10.7 H (3.8-10.6) k/uL RBC 4.92 (4.30-5.90) m/uL Hgb 13.5 (13.0-17.5) gm/dL Hct 41.9 (39.0-53.0) % MCV 85.3 (80.0-100.0) fL MCH 27.5 (25.0-35.0) pg MCHC 32.2 (31.0-37.0) g/dL RDW 16.3 H (11.5-15.5) % Plt Count 275 (150-450) k/uL MPV 7.5 Neutrophils % 80 % Lymphocytes % 14 % Monocytes % 4 % Eosinophils % 2 % Basophils % 0 % Neutrophils # 8.6 H (1.3-7.7) k/uL Lymphocytes # 1.5 (1.0-4.8) k/uL Monocytes # 0.4 (0-1.0) k/uL Eosinophils # 0.2 (0-0.7) k/uL Basophils # 0.0 (0-0.2) k/uL Hypochromasia Slight Anisocytosis Slight PT 10.3 (9.0-12.0) sec INR 1.0 (<1.2) APTT 22.0 (22.0-30.0) sec Sodium 139 (137-145) mmol/L Potassium 4.8 (3.5-5.1) mmol/L Chloride 108 H (98-107) mmol/L Carbon Dioxide 22 (22-30) mmol/L Anion Gap 9 mmol/L BUN 16 (9-20) mg/dL Creatinine 1.15 (0.66-1.25) mg/dL Est GFR (CKD-EPI)AfAm 83 (>60 ml/min/1.73 sqM) Est GFR (CKD-EPI)NonAf 72 (>60 ml/min/1.73 sqM) Glucose 117 H (74-99) mg/dL Calcium 8.6 (8.4-10.2) mg/dL Magnesium 1.7 (1.6-2.3) mg/dL Total Bilirubin 1.0 (0.2-1.3) mg/dL AST 37 (17-59) U/L ALT 28 (4-49) U/L Alkaline Phosphatase 58 (38-126) U/L Total Protein 7.0 (6.3-8.2) g/dL Albumin 4.0 (3.5-5.0) g/dL Disposition Clinical Impression: Chest pain, Gastroenteritis Disposition: ADMITTED IP TO THIS [facility] Referrals: Sharron Hernández MD [Primary Care Provider] - 1-2 days Time of Disposition: 10:56
[2022-07-04 09:45] LABS: Anisocytosis Slight; Basophils % (A) 0 %; Eosinophils # (A) 0.2 k/uL (0-0.7); Eosinophils % (A) 2 %; HCT 41.9 % (39.0-53.0); HGB 13.5 gm/dL (13.0-17.5); Hypochromasia Slight; Lymphocytes # (A) 1.5 k/uL (1.0-4.8); Lymphocytes % (A) 14 %; MCH 27.5 pg (25.0-35.0); MCHC 32.2 g/dL (31.0-37.0); MCV 85.3 fL (80.0-100.0); Mean Platelet Volume 7.5; Monocytes # (A) 0.4 k/uL (0-1.0); Monocytes % (A) 4 %; Neutrophils # (A) 8.6 k/uL (1.3-7.7); Neutrophils % (A) 80 %; Platelet Count 275 k/uL (150-450); RBC 4.92 m/uL (4.30-5.90); RDW 16.3 % (11.5-15.5); WBC 10.7 k/uL (3.8-10.6)
[2022-07-04 09:57] LABS: Prothrombin Time 10.3 sec (9.0-12.0)
[2022-07-04 10:01] LABS: Calcium 8.6 mg/dL (8.4-10.2)
--- NOTE | 2022-07-04 10:07 | XR ---
EXAMINATION TYPE: XR chest 2V DATE OF EXAM: 07/04/2022 COMPARISON: Chest x-ray from yesterday HISTORY: Chest pain. TECHNIQUE: Frontal and lateral views of the chest are obtained. FINDINGS: Elevated left hemidiaphragm current study. Gas prominent stomach is noted. Low lung volume s redemonstrated. Overlying sternal wires again seen. There is no focal air space opacity, pleural ef fusion, or pneumothorax seen. The cardiac silhouette size is upper limits of normal. The osseous s tructures are intact. IMPRESSION: No acute cardiopulmonary process.
[2022-07-04 10:17] LABS: Potassium 4.8 mmol/L (3.5-5.1)
[2022-07-04 10:18] LABS: Magnesium 1.7 mg/dL (1.6-2.3)
[2022-07-04] MEDS ORDERED: NITROGLYCERIN SL TABS 0.4 MG TAB SUBLINGUAL PRN ×2 (10:56→11:27)
[2022-07-04] MEDS ORDERED: ONDANSETRON 4 MG/2 ML VIAL IVP PRN (10:57)
[2022-07-04] MEDS ORDERED: DIPHENOX-ATROP 2.5-0.025 MG 1 EACH TAB PO PRN (10:58)
[2022-07-04] MEDS ORDERED: HYDROcodone/APAP 5-325MG 1 EACH TAB PO PRN (11:27)
[2022-07-04] MEDS ORDERED: ALPRAZolam 0.25 MG TAB PO PRN (11:27)
--- NOTE | 2022-07-04 12:10 | P.HPIM ---
History of Present Illness H&P Date: 07/04/22 Chief Complaint: Intractable nausea vomiting and chest pain HISTORY OF PRESENT ILLNESS: This is a 55-year-old gentleman patient of mc and Dr Jorgensen with history of CAD, CABG, previous CVA involving the occipital lobe,chronic tobacco use and cigar use, moderate alcohol consumption diabetes mellitus type 2, His cardiac history are as follows:coronary artery disease multiple procedure including bypass grafting 2008 which is HOPKINS to the LAD and saphenous vein graft to the diagonal 1 saphenous vein graft to the diagonal 2 and saphenous vein graft to the obtuse marginal and right coronary artery. His last heart catheterization was in November 2017 at which time circumflex had a 60-70% lesion with fractional flow reserve of that lesion to be ischemic at 0.80. Mid left circumflex normal, left circumflex distally normal. LAD with mild disease, right coronary artery chronically occluded at the proximal portion and fills with collaterals from the left coronary system. The saphenous vein graft to the first diagonal, saphenous vein graft to the second diagonal, saphenous vein graft to the obtuse marginal were all patent. HOPKINS to LAD was atrophic and occluded in the midportion. Patient underwent drug-eluting stent to the proximal left circumflex. Patient presented to the emergency department at [facility] today because of the sudden onset of intractable abdominal pain in the midepigastric area associated with nausea vomiting and diarrhea, patient at the same time felt a bit dizzy with increased chest pain radiating to the shoulder no evidence of shortness breath, patient was seen and evaluated in the emergency department at [facility], 12-lead EKG did not show evidence of acute of normalities, laboratory evaluation reviewed, REVIEW OF SYSTEMS: Constitutional: No documented fever, no chills, no night sweats. No weight change. No weakness, fatigue or lethargy. No daytime sleepiness. EENT: No headache. No blurred vision or double vision, no loss of vision. No loss of Hearing, no ringing in the ears, no dizziness. No nasal drainage or congestion. No epistaxis. No sore throat. Lungs: No shortness of breath, no cough, no sputum production. No wheezing. Reports dyspnea with activity. Cardiovascular: No chest pain, no lower extremity edema. No palpitations. No paroxysmal nocturnal dyspnea. No orthopnea. No lightheadedness or dizziness. No syncopal episodes. Abdominal: Reports abdominal pain. No nausea, vomiting. No diarrhea. No constipation. No bloody or tarry stools reports loss of appetite. Genitourinary: No dysuria, increased frequency, urgency. No urinary retention. Musculoskeletal: No myalgias. No muscle weakness, no gait dysfunction, no frequent falls. No back pain. No neck pain. Integumentary: No wounds, no lesions. No rash or pruritus. No unusual bruising. No change in hair or nails. Neurologic: No aphasia. No facial droop. No change in mentation. No head injury. No headache. No paralysis. No paresthesia. Psychiatric: No depression. No anxiety. No mood swings. Endocrine: No abnormal blood sugars. No weight change. PAST MEDICAL HISTORY: CAD post CABG X 5 HOPKINS to LAD, SVG to Dx1, Dx2, OM1, RCA Ischemic cardiomyopathy. Hypertension and hypertensive cardiovascular disease. Hyperlipidemia. Diabetes mellitus type 2. CVA involving the right occipital lobe Chronic tobacco use Chronic alcohol use obesity with obstructive sleep apnea. Hemorrhoids. PAST SURGICAL HISTORY: CABG 5 2008 Left heart [id number], 2019,2020 total of 7 stents placement Tonsillectomy and adenoidectomy. Umbilical hernia repair Cholecystectomy EGD and colonoscopy Hemorrhoid banding SOCIAL HISTORY: Patient smokes cigar once in a while, he denies any cigarette smoking, he still drinks occasionally, he denies any drug use or abuse. FAMILY HISTORY: Father at age 75 from coronary artery disease status post coronary artery bypass grafting also had a history of prostate cancer 1 cancer, mother at age 59 from brain aneurysm. PHYSICAL EXAMINATION: General: 56-year-old gentle is sitting up in bed in minimal distress per HEENT: Head is atraumatic, normocephalic, pupils were equal round reactive to light and recommendation, extraocular muscle movement were intact, sclera nonicteric, conjunctivae were pale, mucous membranes of the mouth are somewhat dry. Neck: Supple, no JVP, normal carotid upstroke bilaterally, no lymphadenopathy. Chest: Decreased breath sounds at the bases, few rhonchi, no expiratory wheezes, no chest wall tenderness, no intercostal retractions. Heart: First heart sound is normal, second heart sounds normal . There is systolic ejection murmur 2/6 located in the left sternal border. Abdomen: Soft, mild tenderness in the epigastric area, nondistended, positive bowel sounds. Extremities: There is no edema no calf tenderness DP +2 bilaterally. Neurologic examination: Patient is awake alert and oriented X 3, cranial nerves II-12 appear grossly intact, muscle power were 5 out of 5 in upper extremities and 5 out of 5 in bilateral lower extremities, deep tendon reflexes normal bilaterally. ASSESSMENT AND PLAN: 1. Chest pain likely noncardiac likely related to possible gastroenteritis . We will continue with IV fluid resuscitation, cardiac enzymes , we'll resume cardiac medications cardiology consultation. 2. Possible gastroenteritis, continue IV fluid, check amylase lipase hold Ozempic rule out acute pancreatitis due to GLP-1 receptor agonist. 3. CAD with prior bypass surgery and percutaneous coronary interventions. Continue metoprolol at 50 mg orally twice every day, aspirin 81 mg daily, atorvastatin 80 mg at bedtime, Ranexa 1000 mg orally twice every day. 4. COPD without exacerbation . Patient is in room air. 5. CKD stage II, nephrotoxins will be avoided, hypotension would be avoided, labs will be monitored 6. Ischemic cardiomyopathy with angina: With multiple coronary artery disease. We will continue patient on metoprolol 50 mg orally twice every day, lisinopril 20 mg orally once every day, Ranexa 1000 mg orally twice every day and Imdur 60 mg orally twice every day. 7. Hypertension and hypertensive cardiovascular disease. metoprolol 50 mg twice a day, lisinopril 20 mg daily, Norvasc 2.5 mg daily. 8. Hyperlipidemia. On atorvastatin 80 mg daily. 9. GERD. Protonix 40 mg daily. 10. Chronic tobacco use. Smoking cessation 11. GI prophylaxis. We will continue with Protonix 40 mg orally once every day. 12. DVT prophylaxis. Heparin 5000 units subcutaneously every 8 hours. 13. Morbid obesity with BMI of 39.7 we will continue with diet and exercise and weight loss and total life style changes with risk factor modifications. 14. Admitted as an observation. 15. Patient is full code. 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 Last Myocardial Infarction Date:: 2020 History of Any Multi-Drug Resistant Organisms: None Reported Past Surgical History: Adenoidectomy, Cholecystectomy, Coronary Bypass/CABG, Heart Catheterization, Heart Catheterization With Stent, Hernia Repair Additional Past Surgical History / Comment(s): Several caths with last one done 11/26 total 7 stents (states placed 01/2011, and 03/2019. 2020), CABG 5 vessel in 2008 (stents came after open heart was done), EGD/colonoscopy, hemorrhoid banding, umbilical hernia repair Past Anesthesia/Blood Transfusion Reactions: Previous Problems w/ Anesthesia Additional Past Anesthesia/Blood Transfusion Reaction / Comment(s): stated "wakes up slower than normal" Date of Last Stent Placement:: 04/26 Past Psychological History: Anxiety, Depression Smoking Status: Former smoker, Vaper - Past Family History Father Family Medical History: Cancer, Coronary Artery Disease (CAD) Additional Family Medical History / Comment(s): dad is 75. stents, bypass, prostate and lung cancer. Mother Additional Family Medical History / Comment(s): mom 1997 at age 59- brain aneurysm Medications and Allergies Home Medications Medication Instructions Recorded Confirmed Type Atorvastatin [Lipitor] 80 mg PO HS 06/25/13 05/17/22 History Metoprolol Tartrate [Lopressor] 50 mg PO BID 06/25/13 05/17/22 History Nitroglycerin Sl Tabs [Nitrostat] 0.4 mg SUBLINGUAL Q5M PRN 06/25/13 05/17/22 History Ranolazine [Ranexa] 1,000 mg PO BID 09/23/13 05/17/22 History Pantoprazole Sodium [Protonix] 40 mg PO DAILY 07/02/14 05/17/22 History Isosorbide Mononitrate ER [Imdur] 60 mg PO BID 10/13/15 05/17/22 History Aspirin [Adult Low Dose Aspirin EC] 81 mg PO HS 01/11/16 05/17/22 History amLODIPine [Norvasc] 2.5 mg PO DAILY 09/26/17 05/17/22 History lisinopriL [Zestril] 20 mg PO DAILY 09/26/17 05/17/22 History metFORMIN HCL [Glucophage] 500 mg PO BID #0 11/27/17 05/17/22 Rx ALPRAZolam [Xanax] 0.25 mg PO BID PRN 04/11/20 05/17/22 History HYDROcodone/APAP 5-325MG [[place] 1 tab PO DAILY PRN 04/11/20 05/17/22 History 5-325] Cholecalciferol (Vitamin D3) 1 tab PO DAILY 05/12/22 05/17/22 History [Vitamin D3 (500 Iu/5 ML)] Semaglutide [Ozempic] 0.5 mg SQ DAILY 05/12/22 05/17/22 History Vit B Complex/ Vitamin C Gummy 1 tab PO DAILY 05/12/22 05/17/22 History Allergies Allergy/AdvReac Type Severity Reaction Status Date / Time chocolate flavor Allergy Rash/Hives Verified 07/04/22 09:13 Mcgaffey And Derivatives Allergy Rash/Hives Verified 07/04/22 09:13 [[place]gaffey] Physical Exam Vitals: Vital Signs Temp Pulse Resp BP Pulse Ox 07/04/22 11:01 80 18 115/71 95 07/04/22 09:45 90 18 96 07/04/22 09:09 98.4 F 89 19 134/92 96 Intake and Output 07/03/22 07/04/22 07/04/22 22:59 06:59 14:59 Other: Weight 122.47 kg Results CBC & Chem 7: 07/04/22 09:35 07/04/22 09:35 Labs: Abnormal Lab Results - Last 24 Hours (Table) 07/04/22 07/04/22 Range/Units 09:35 09:35 WBC 10.7 H (3.8-10.6) k/uL RDW 16.3 H (11.5-15.5) % Neutrophils # 8.6 H (1.3-7.7) k/uL Chloride 108 H (98-107) mmol/L Glucose 117 H (74-99) mg/dL
[2022-07-04] MEDS: HEPARIN SODIUM,PORCINE/PF 5,000 UNIT/0.5 ML SYRINGE SQ SCH ×2 (17:50→23:50)
[2022-07-04] MEDS: NITROGLYCERIN OINT 1 INCH/GM PACKET TOPICAL SCH ×2 (17:50→21:15)
[2022-07-04 17:54] LABS: Glucose,Whole Blood 93 mg/dL (70-110)
[2022-07-04] MEDS: RANOLAZINE 500 MG TAB.ER.12H PO SCH (21:17)
[2022-07-04] MEDS: ATORVASTATIN 80 MG TAB PO SCH (21:17)
[2022-07-04] MEDS: ASPIRIN 81 MG PO SCH (21:18)
[2022-07-04] MEDS: METOPROLOL TARTRATE 50 MG TAB PO SCH (21:18)
[2022-07-04 21:23] LABS: Glucose,Whole Blood 90 mg/dL (70-110)
[2022-07-04] MEDS: ISOSORBIDE MONONITRATE ER 60 MG TAB.ER.24H PO SCH (21:52)
[2022-07-05] MEDS: NITROGLYCERIN OINT 1 INCH/GM PACKET TOPICAL SCH ×4 (04:10→20:40)
[2022-07-05] MEDS: PANTOPRAZOLE 40 MG TABLET PO SCH (06:13)
[2022-07-05 06:16] LABS: Glucose,Whole Blood 105 mg/dL (70-110)
[2022-07-05 07:43] LABS: Amylase 109 U/L (30-110); Lipase 499 U/L (23-300)
[2022-07-05] MEDS ORDERED: ASPIRIN 325 MG TAB PO SCH (09:00)
[2022-07-05] MEDS: HEPARIN SODIUM,PORCINE/PF 5,000 UNIT/0.5 ML SYRINGE SQ SCH ×3 (09:43→20:49)
[2022-07-05] MEDS: ISOSORBIDE MONONITRATE ER 60 MG TAB.ER.24H PO SCH ×2 (09:44→20:40)
[2022-07-05] MEDS: METOPROLOL TARTRATE 50 MG TAB PO SCH ×2 (09:44→20:40)
[2022-07-05] MEDS: RANOLAZINE 500 MG TAB.ER.12H PO SCH ×2 (09:44→20:39)
[2022-07-05] MEDS: CHOLECALCIFEROL 25 MCG (1000 IU) TABLET PO SCH (09:44)
[2022-07-05] MEDS: amLODIPine 2.5 MG TAB PO SCH (09:45)
[2022-07-05] MEDS: lisinopriL 20 MG TAB PO SCH (09:45)
--- NOTE | 2022-07-05 10:31 | CONS ---
CONSULTATION CHIEF COMPLAINT: Abdominal pain. HISTORY OF PRESENT ILLNESS: This is a 56-year-old gentleman with history of coronary artery disease, status post prior bypass surgery; history of CVA involving the occipital lobe; chronic tobacco use; moderate alcohol consumption; and type 2 diabetes, who presented to the emergency room complaining of sudden onset intractable abdominal pain with some discomfort in the mid epigastric area, nausea, vomiting, and diarrhea. Cardiology had been consulted with some chest discomfort that radiated to his shoulders. At the time of my evaluation, his chest discomfort has resolved. He continues to have abdominal discomfort. EKG showed sinus rhythm, extensive ST-T wave changes, and evidence of prior inferior wall myocardial infarction. His EKG looks unchanged compared to an EKG done in April of 2020. At the time of my evaluation, he is comfortable at rest. Cardiac enzymes are negative. His chest discomfort seems to be related to the abdominal pain. PAST MEDICAL HISTORY: Significant for coronary artery disease, status post bypass surgery; hypertension; diabetes; and dyslipidemia. CURRENT MEDICATIONS: Include: 1. Ranexa 1000 mg b.i.d. 2. Xanax. 3. Glucophage 500 b.i.d. 4. Zestril 20 daily. 5. Norvasc 2.5 daily. 6. Protonix. 7. Lopressor 50 b.i.d. 8. Imdur 60 b.i.d. 9. Ozempic. 10.Lipitor. 11.Aspirin. ALLERGIES: 1. [place]. 2. Chocolate. FAMILY HISTORY: Negative for premature coronary artery disease. SOCIAL HISTORY: Negative for current smoking, EtOH abuse, or drug abuse. REVIEW OF SYSTEMS: 14 out of 14 review of systems has been performed. Pertinents are as documented in history of presenting illness. PHYSICAL EXAMINATION: GENERAL: Comfortable at rest. VITAL SIGNS: Stable. NECK: There is no jugular venous distention. Carotid upstroke is normal. There is no bruit. CHEST: Reveals good air entry bilaterally. HEART: Reveals first and second heart sounds. Systolic murmur at the apex. ABDOMEN: Shows mild tenderness. EXTREMITIES: Did not reveal any edema. Peripheral pulses are felt. LABORATORY DATA: Show that the hemoglobin is 13.5, platelet count is 217. Potassium is 4.8, creatinine is 1.1. AST and ALT are within normal limits. ASSESSMENT: 1. Atypical chest pain. 2. Abdominal pain. 3. Coronary artery disease, status post coronary artery bypass grafting. PLAN: I will obtain a 2D echo. No other cardiac workup at this time. Abdominal discomfort will be evaluated by primary care physician. LEONEL / LESLI: [id number] /
[2022-07-05 12:53] LABS: Glucose,Whole Blood 105 mg/dL (70-110)
[2022-07-05] MEDS ORDERED: IOPAMIDOL CONTRAST (ORAL USE) VIAL PO PRN (16:29)
--- NOTE | 2022-07-05 17:29 | CA ---
Transthoracic Echo Report Name: Guido Crump Age: 56 Gender: M : 1965 Exam Date: 07/05/2022 12:54 Exam Location: [facility] Ht (in): 71 Wt (lb): 270 Ordering Physician: David Holley MD ([id number]) Attending/Referring Phys: Kishan BELLE Land [employer] Bimal Al Procedure CPT: Indications: CP Cardiac Hx: Technical Quality: Fair Contrast 1: Total Dose (mL): Contrast 2: Total Dose (mL): MEASUREMENTS (Male / Female) Normal Values 2D ECHO LV Diastolic Diameter PLAX 5.2 cm 4.2 - 5.9 / 3.9 - 5.3 cm LV Systolic Diameter PLAX 3.5 cm IVS Diastolic Thickness 1.4 cm 0.6 - 1.0 / 0.6 - 0.9 cm LVPW Diastolic Thickness 1.5 cm 0.6 - 1.0 / 0.6 - 0.9 cm LV Relative Wall Thickness 0.6 RV Internal Dim ED PLAX 3.3 cm LVOT Diameter 2.4 cm Aortic Root Diameter 3.3 cm LA Systolic Diameter LX 3.1 cm 3.0 - 4.0 / 2.7 - 3.8 cm LV Diastolic Volume MOD BP 65.2 cm??? 67 - 155 / 56 - 104 cm??? LV Systolic Volume MOD BP 28.9 cm??? 22 - 58 / 19 - 49 cm??? LV Ejection Fraction MOD BP 55.7 % >= 55 % LV Diastolic Volume MOD 4C 73.3 cm??? LV Systolic Volume MOD 4C 37.6 cm??? LV Ejection Fraction MOD 4C 48.8 % LV Diastolic Length 4C 8.3 cm LV Systolic Length 4C 6.8 cm LV Diastolic Volume MOD 2C 52.7 cm??? LV Systolic Volume MOD 2C 20.2 cm??? LV Ejection Fraction MOD 2C 61.6 % LV Diastolic Length 2C 7.5 cm LV Systolic Length 2C 6.5 cm LA Volume 62.4 cm??? 18 - 58 / 22 - 52 cm??? Ascending Aorta Diameter 3.1 cm DOPPLER AV Peak Velocity 102.2 cm/s AV Peak Gradient 4.2 mmHg MV Peak Velocity 88.8 cm/s MV Peak Gradient 3.2 mmHg MV Mean Velocity 47.2 cm/s MV Mean Gradient 1.1 mmHg MV Velocity Time Integral 26.6 cm MR Peak Velocity 355.8 cm/s MR Peak Gradient 50.6 mmHg Mitral E Point Velocity 87.9 cm/s Mitral A Point Velocity 77.6 cm/s Mitral E to A Ratio 1.1 MV Deceleration Time 227.2 ms TR Peak Velocity 144.8 cm/s TR Peak Gradient 8.4 mmHg Right Ventricular Systolic Press 13.4 mmHg PV Peak Velocity 124.1 cm/s PV Peak Gradient 6.2 mmHg FINDINGS Left Ventricle Left ventricular ejection fraction is estimated at 50-55 %. Right Ventricle Normal right ventricular size. Right Atrium Normal right atrial size. Left Atrium Normal left atrial size. Mitral Valve Structurally normal mitral valve. Trace MR. Aortic Valve Not well visualized. Grossly normal structuraly. No AI. Tricuspid Valve Tricuspid valve not well visualized. No tricuspid regurgitation. Pulmonic Valve Pulmonic valve not well visualized. No pulmonic regurgitation. Pericardium Normal pericardium. Aorta Normal size aortic root and proximal ascending aorta. CONCLUSIONS Normal LV systolic function Previewed by: Dr. David Holley MD (Electronically Signed) Final Date: 05 Jul 2022 17:29
[2022-07-05 17:44] LABS: Glucose,Whole Blood 99 mg/dL (70-110)
--- NOTE | 2022-07-05 18:47 | P.PN ---
Subjective Progress Note Date: 07/05/22 HISTORY OF PRESENT ILLNESS: This is a 55-year-old gentleman patient of mc and Dr Jorgensen with history of CAD, CABG, previous CVA involving the occipital lobe,chronic tobacco use and cigar use, moderate alcohol consumption diabetes mellitus type 2, His cardiac history are as follows:coronary artery disease multiple procedure including bypass grafting 2008 which is HOPKINS to the LAD and saphenous vein graft to the diagonal 1 saphenous vein graft to the diagonal 2 and saphenous vein graft to the obtuse marginal and right coronary artery. His last heart catheterization was in November 2017 at which time circumflex had a 60-70% lesion with fractional flow reserve of that lesion to be ischemic at 0.80. Mid left circumflex normal, left circumflex distally normal. LAD with mild disease, right coronary artery chronically occluded at the proximal portion and fills with collaterals from the left coronary system. The saphenous vein graft to the first diagonal, saphenous vein graft to the second diagonal, saphenous vein graft to the obtuse marginal were all patent. HOPKINS to LAD was atrophic and occluded in the midportion. Patient underwent drug-eluting stent to the proximal left circumflex. Patient presented to the emergency department at [facility] today because of the sudden onset of intractable abdominal pain in the midepigastric area associated with nausea vomiting and diarrhea, patient at the same time felt a bit dizzy with increased chest pain radiating to the shoulder no evidence of shortness breath, patient was seen and evaluated in the emergency department at [facility], 12-lead EKG did not show evidence of acute of normalities, laboratory evaluation reviewed, 07/05: Patient is sitting up in bed he denies any chest pain at this time, he continues to have a mid epigastric abdominal pain, he continues to have Increased bloating, and increased gas, he has no appetite, his lipase yesterday was 499, this is likely related to GLP-1 receptor agonist Ozempic will keep it on hold last injection was yesterday, patient did receive 1 mg this is his fourth dose over the last month, continue to monitor the patient very closely, continue IV fluid resuscitation the form of normal saline, repeat lipase tomorrow morning, computed tomography scan of the abdomen with oral and IV contrast shows for further eval you should recommend patient. REVIEW OF SYSTEMS: Constitutional: No documented fever, no chills, no night sweats. No weight change. No weakness, fatigue or lethargy. No daytime sleepiness. HEENT: No headache. No blurred vision or double vision, no loss of vision. No loss of Hearing, no ringing in the ears, no dizziness. No nasal drainage or congestion. No epistaxis. No sore throat. Lungs: No shortness of breath, no cough, no sputum production. No wheezing. Reports dyspnea with activity. Cardiovascular: No chest pain, no lower extremity edema. No palpitations. No paroxysmal nocturnal dyspnea. No orthopnea. No lightheadedness or dizziness. No syncopal episodes. Abdominal: Reports abdominal pain. positive for nausea, vomiting. No diarrhea. No constipation. No bloody or tarry stools reports loss of appetite. Genitourinary: No dysuria, increased frequency, urgency. No urinary retention. Musculoskeletal: No myalgias. No muscle weakness, no gait dysfunction, no frequent falls. No back pain. No neck pain. Integumentary: No wounds, no lesions. No rash or pruritus. No unusual bruising. No change in hair or nails. Neurologic: No aphasia. No facial droop. No change in mentation. No head injury. No headache. No paralysis. No paresthesia. Psychiatric: No depression. No anxiety. No mood swings. Endocrine: No abnormal blood sugars. No weight change. PHYSICAL EXAMINATION: General: 56-year-old gentle is sitting up in bed in minimal distress per HEENT: Head is atraumatic, normocephalic, pupils were equal round reactive to light and recommendation, extraocular muscle movement were intact, sclera nonicteric, conjunctivae were pale, mucous membranes of the mouth are somewhat dry. Neck: Supple, no JVP, normal carotid upstroke bilaterally, no lymphadenopathy. Chest: Decreased breath sounds at the bases, few rhonchi, no expiratory wheezes, no chest wall tenderness, no intercostal retractions. Heart: First heart sound is normal, second heart sounds normal . There is systolic ejection murmur 2/6 located in the left sternal border. Abdomen: Soft, mild tenderness in the epigastric area, nondistended, positive bowel sounds. Extremities: There is no edema no calf tenderness DP +2 bilaterally. Neurologic examination: Patient is awake alert and oriented X 3, cranial nerves II-12 appear grossly intact, muscle power were 5 out of 5 in upper extremities and 5 out of 5 in bilateral lower extremities, deep tendon reflexes normal bilaterally. ASSESSMENT AND PLAN: 1. Chest pain likely noncardiac likely related to possible Pancreatitis . We will continue with IV fluid resuscitation, cardiac enzymes , we'll resume cardiac medications cardiology consultation appreciated 2. Abdominal pain likely related to the use of Ozempic rule out acute pancreatitis . Keep the patient on low fat diet, start IV fluid in the form of normal saline at 75 mL an hour, check lipase, check computed tomography scan of the abdomen with oral and IV contrast. 3. CAD with prior bypass surgery and percutaneous coronary interventions. Continue metoprolol at 50 mg orally twice every day, aspirin 81 mg daily, atorvastatin 80 mg at bedtime, Ranexa 1000 mg orally twice every day. 4. COPD without exacerbation . Patient is in room air. 5. CKD stage II, nephrotoxins will be avoided, hypotension would be avoided, labs will be monitored 6. Ischemic cardiomyopathy with angina: With multiple coronary artery disease. We will continue patient on metoprolol 50 mg orally twice every day, lisinopril 20 mg orally once every day, Ranexa 1000 mg orally twice every day and Imdur 60 mg orally twice every day. 7. Hypertension and hypertensive cardiovascular disease. metoprolol 50 mg twice a day, lisinopril 20 mg daily, Norvasc 2.5 mg daily. 8. Hyperlipidemia. On atorvastatin 80 mg daily. 9. GERD. Protonix 40 mg daily. 10. Chronic tobacco use. Smoking cessation 11. GI prophylaxis. We will continue with Protonix 40 mg orally once every day. 12. DVT prophylaxis. Heparin 5000 units subcutaneously every 8 hours. 13. Morbid obesity with BMI of 39.7 we will continue with diet and exercise and weight loss and total life style changes with risk factor modifications. 14. Change admission to inpatient Objective - Vital Signs Vital signs: Vital Signs Temp 98.1 F 07/05/22 15:00 Pulse 72 07/05/22 15:00 Resp 16 07/05/22 15:00 BP 123/85 07/05/22 15:00 Pulse Ox 96 07/05/22 15:00 FiO2 21 07/04/22 20:57 Intake & Output 07/04/22 07/05/22 07/05/22 18:59 06:59 18:59 Intake Total 618 236 Balance 618 236 Weight 122.47 kg 122.515 kg Intake: Oral 618 236 Other: Voiding Method Toilet Toilet # Voids 1 2 - Labs CBC & Chem 7: 07/04/22 09:35 07/04/22 09:35 Labs: Abnormal Lab Results - Last 24 Hours (Table) 07/05/22 Range/Units 05:44 Lipase 499 H (23-300) U/L
[2022-07-05 18:50] LABS: ALT 20 U/L (4-49); AST 22 U/L (17-59); African American GFR (CKD) 76 (>60 ml/min/1.73 sqM); Albumin 3.2 g/dL (3.5-5.0); Albumin/Globulin Ratio 1.3; Alkaline Phosphatase 55 U/L (38-126); Anion Gap 5 mmol/L; Blood Urea Nitrogen 13 mg/dL (9-20); Calcium 8.1 mg/dL (8.4-10.2); Carbon Dioxide 25 mmol/L (22-30); Chloride 106 mmol/L (98-107); Globulin 2.4 g/dL; Non-African American GFR(CKD) 65 (>60 ml/min/1.73 sqM); Potassium 4.2 mmol/L (3.5-5.1); Sodium 136 mmol/L (137-145); Total Bilirubin 0.8 mg/dL (0.2-1.3); Total Protein 5.6 g/dL (6.3-8.2)
[2022-07-05 18:55] LABS: Glucose 91 mg/dL (74-99)
[2022-07-05] MEDS: ATORVASTATIN 80 MG TAB PO SCH (20:40)
[2022-07-05] MEDS: ASPIRIN 81 MG PO SCH (20:40)
[2022-07-05] MEDS: SODIUM CHLORIDE 0.9% 1,000 ML IV SCH (20:48)
[2022-07-05 21:18] LABS: Glucose,Whole Blood 113 mg/dL (70-110)
[2022-07-05 22:41] LABS: Chol/HDL Ratio 1.77 Ratio; LDL Cholesterol,Calculated 14.6 mg/dL (0.0-131.0); VLDL Calculation 17.18 mg/dL (5.00-40.00)
--- NOTE | 2022-07-06 00:25 | CT ---
EXAMINATION TYPE: CT abdomen w con DATE OF EXAM: 07/05/2022 COMPARISON: 04/11/2020 INDICATION: abdominal pain, elvated lipase DLP: 2441 mGycm, Automated exposure control for dose reduction was used. CONTRAST: 80 cc mL of Isovue 300. Study performed with Oral Contrast TECHNIQUE: Axial images were obtained from above the diaphragm to the pubic rami in the axial plane a t 5 mm thick sections. Reconstructed images are reviewed on the computer in the coronal plane. FINDINGS: Limited CT sections are obtained the lung bases. There is some mild streak atelectasis at the left l yassine base. Lung bases otherwise appear clear. CT ABDOMEN: Liver: Normal Spleen: Normal. There is a splenule anterior to the tail of the pancreas. Pancreas: Normal Adrenal glands: The adrenal glands are normal. Gallbladder: Surgically absent Kidneys: No masses are evident. No Hydronephrosis. There is a 2.7 cm cyst in the mid right kidney. Aorta: Vascular calcification is within the aorta. Inferior vena cava: Normal. CT PELVIS: Loops of bowel within the abdomen and pelvis are normal. Few scattered diverticuli within the sigmoi d colon without adjacent inflammatory changes. No acute diverticulitis evident. This study is witho ut oral contrast limiting bowel evaluation. Appendix: Normal as visualized. Urinary bladder: Normal. Genitourinary structures: Posterior. Somewhat full. Osseous structures: No suspicious lytic or sclerotic lesions are evident. IMPRESSIONS: 1. Right mid renal peripelvic cysts. 2. Mild diverticulosis without acute diverticulitis.
[2022-07-06] MEDS: NITROGLYCERIN OINT 1 INCH/GM PACKET TOPICAL SCH ×2 (04:44→09:23)
[2022-07-06] MEDS: SODIUM CHLORIDE 0.9% 1,000 ML IV SCH (06:07)
[2022-07-06] MEDS: PANTOPRAZOLE 40 MG TABLET PO SCH (06:07)
[2022-07-06 07:51] LABS: Glucose,Whole Blood 114 mg/dL (70-110)
[2022-07-06 09:07] LABS: African American GFR (CKD) 71.2 (60.0-200.0); Albumin 3.5 g/dL (3.8-4.9); Albumin/Globulin Ratio 1.75 (1.60-3.17); Blood Urea Nitrogen 10.4 mg/dL (9.0-27.0); Calcium 8.8 mg/dL (8.7-10.3); Non-African American GFR(CKD) 61.4 (60.0-200.0); Potassium 3.9 mmol/L (3.5-5.5); Total Bilirubin 0.5 mg/dL (0.30-1.20); Total Protein 5.5 g/dL (6.2-8.2)
[2022-07-06 09:08] LABS: Basophils # (A) 0.03 X 10*3/uL (0.00-0.10); Basophils % (A) 0.6 %; Eosinophils # (A) 0.08 X 10*3/uL (0.04-0.35); Eosinophils % (A) 1.6 %; HCT 34.1 % (39.6-50.0); HGB 10.8 g/dL (13.0-17.0); Immature Grans, Automated 0.4 %; Lymphocytes # (A) 1.82 X 10*3/uL (0.90-5.00); Lymphocytes % (A) 36.9 %; MCH 26.9 pg (27.0-32.0); MCHC 31.7 g/dL (32.0-37.0); MCV 84.8 fL (80.0-97.0); Mean Platelet Volume 10.1 fL (9.5-12.2); Monocytes # (A) 0.32 X 10*3/uL (0.20-1.00); Monocytes % (A) 6.5 %; NRBC Per 100 WBC 0 /100 WBCS (0.0-0.0); Neutrophils # (A) 2.66 X 10*3/uL (1.80-7.70); Platelet Count 193 X 10*3/uL (140-440); RBC 4.02 X 10*6/uL (4.40-5.60); RDW 16.3 % (11.5-14.5); WBC 4.93 X 10*3/uL (4.50-10.00)
[2022-07-06] MEDS: amLODIPine 2.5 MG TAB PO SCH (09:23)
[2022-07-06] MEDS: HEPARIN SODIUM,PORCINE/PF 5,000 UNIT/0.5 ML SYRINGE SQ SCH (09:23)
[2022-07-06] MEDS: lisinopriL 20 MG TAB PO SCH (09:23)
[2022-07-06] MEDS: METOPROLOL TARTRATE 50 MG TAB PO SCH (09:23)
[2022-07-06] MEDS: CHOLECALCIFEROL 25 MCG (1000 IU) TABLET PO SCH (09:23)
[2022-07-06] MEDS: ISOSORBIDE MONONITRATE ER 60 MG TAB.ER.24H PO SCH (09:23)
[2022-07-06] MEDS: RANOLAZINE 500 MG TAB.ER.12H PO SCH (09:23)
[2022-07-06 12:25] LABS: Glucose,Whole Blood 128 mg/dL (70-110)
[2022-07-06 14:12] VITALS: BP 151/96; PULSE 70; RESP 18; TEMP 98
--- NOTE | 2022-07-06 14:17 | P.DS ---
Providers Date of admission: 07/04/22 10:56 Expected date of discharge: 07/06/22 Attending physician: Sharron Hernández Consults: 07/04/22 10:56 Consult Physician Urgent Consulting Provider: [facility] Consult Reason/Comments: Chest pain Do you want consulting provider notified?: Yes Primary care physician: Sharron Hernández Hospital Course: HISTORY OF PRESENT ILLNESS: This is a 55-year-old gentleman patient of mc and Dr Jorgensen with history of CAD, CABG, previous CVA involving the occipital lobe,chronic tobacco use and cigar use, moderate alcohol consumption diabetes mellitus type 2, His cardiac history are as follows:coronary artery disease multiple procedure including bypass grafting 2008 which is HOPKINS to the LAD and saphenous vein graft to the diagonal 1 saphenous vein graft to the diagonal 2 and saphenous vein graft to the obtuse marginal and right coronary artery. His last heart catheterization was in November 2017 at which time circumflex had a 60-70% lesion with fractional flow reserve of that lesion to be ischemic at 0.80. Mid left circumflex normal, left circumflex distally normal. LAD with mild disease, right coronary artery chronically occluded at the proximal portion and fills with collaterals from the left coronary system. The saphenous vein graft to the first diagonal, saphenous vein graft to the second diagonal, saphenous vein graft to the obtuse marginal were all patent. HOPKINS to LAD was atrophic and occluded in the midportion. Patient underwent drug-eluting stent to the proximal left circumflex. Patient presented to the emergency department at [facility] today because of the sudden onset of intractable abdominal pain in the midepigastric area associated with nausea vomiting and diarrhea, patient at the same time felt a bit dizzy with increased chest pain radiating to the shoulder no evidence of shortness breath, patient was seen and evaluated in the emergency department at [facility], 12-lead EKG did not show evidence of acute of normalities, laboratory evaluation reviewed, 07/05: Patient is sitting up in bed he denies any chest pain at this time, he continues to have a mid epigastric abdominal pain, he continues to have Increased bloating, and increased gas, he has no appetite, his lipase yesterday was 499, this is likely related to GLP-1 receptor agonist Ozempic will keep it on hold last injection was yesterday, patient did receive 1 mg this is his fourth dose over the last month, continue to monitor the patient very closely, continue IV fluid resuscitation the form of normal saline, repeat lipase tomorrow morning, computed tomography scan of the abdomen with oral and IV contrast shows for further eval you should recommend patient. Discharge diagnoses: 1. Chest pain likely noncardiac likely related to possible Pancreatitis . 2. Abdominal pain likely related to the use of Ozempic rule out acute pancreatitis . 3. CAD with prior bypass surgery and percutaneous coronary interventions. 4. COPD without exacerbation . 5. CKD stage II, 6. Ischemic cardiomyopathy with angina: 7. Hypertension and hypertensive cardiovascular disease. 8. Hyperlipidemia. 9. GERD. 10. Chronic tobacco use. Patient Condition at Discharge: Stable Plan - Discharge Summary Discharge Rx Participant: No New Discharge Prescriptions: No Action Nitroglycerin Sl Tabs [Nitrostat] 0.4 mg SUBLINGUAL Q5M PRN PRN Reason: Chest Pain Atorvastatin [Lipitor] 80 mg PO HS Metoprolol Tartrate [Lopressor] 50 mg PO BID Ranolazine [Ranexa] 1,000 mg PO BID Pantoprazole Sodium [Protonix] 40 mg PO DAILY Isosorbide Mononitrate ER [Imdur] 60 mg PO BID Aspirin [Adult Low Dose Aspirin EC] 81 mg PO HS amLODIPine [Norvasc] 2.5 mg PO DAILY metFORMIN HCL [Glucophage] 500 mg PO BID #0 ALPRAZolam [Xanax] 0.25 mg PO DAILY PRN PRN Reason: Anxiety lisinopriL [Zestril] 20 mg PO DAILY Semaglutide [Ozempic] 1 mg SQ MO Discharge Medication List Atorvastatin [Lipitor] 80 mg PO HS 06/25/13 [History] Metoprolol Tartrate [Lopressor] 50 mg PO BID 06/25/13 [History] Nitroglycerin Sl Tabs [Nitrostat] 0.4 mg SUBLINGUAL Q5M PRN 06/25/13 [History] Ranolazine [Ranexa] 1,000 mg PO BID 09/23/13 [History] Pantoprazole Sodium [Protonix] 40 mg PO DAILY 07/02/14 [History] Isosorbide Mononitrate ER [Imdur] 60 mg PO BID 10/13/15 [History] Aspirin [Adult Low Dose Aspirin EC] 81 mg PO HS 01/11/16 [History] amLODIPine [Norvasc] 2.5 mg PO DAILY 09/26/17 [History] metFORMIN HCL [Glucophage] 500 mg PO BID #0 11/27/17 [Rx] ALPRAZolam [Xanax] 0.25 mg PO DAILY PRN 04/11/20 [History] Semaglutide [Ozempic] 1 mg SQ MO 07/04/22 [History] lisinopriL [Zestril] 20 mg PO DAILY 07/04/22 [History] Follow up Appointment(s)/Referral(s): Sharron Hernández MD [Primary Care Provider] - 1-2 days
--- NOTE | 2022-07-06 20:36 | PN ---
PROGRESS NOTE SUBJECTIVE: A 56-year-old gentleman with known coronary artery disease is admitted to hospital primarily with abdominal pain and epigastric discomfort, and also has chest pain. His chest discomfort is sharp, atypical, probably related to the abdominal pain. His abdominal pain is being worked up by primary. From cardiac standpoint, he ruled out for myocardial infarction. An echocardiogram showed normal LV systolic function. On my evaluation today, he is chest pain free and the abdominal discomfort has improved significantly. His lipid profile shows that the LDL cholesterol is 14. Three sets of troponins are negative. An echocardiogram showed normal LV function. OBJECTIVE: GENERAL: Comfortable at rest. VITAL SIGNS: Stable. CHEST: Reveals good air entry bilaterally. HEART: Reveals first and second heart sounds. No gallop. ABDOMEN: Soft. EXTREMITIES: Did not reveal any edema. Peripheral pulses are felt. ASSESSMENT: 1. Atypical chest pain. 2. Abdominal pain. Workup per primary. 3. Coronary artery disease, status post coronary artery bypass grafting. PLAN: From cardiac standpoint, he does not require any other workup at this time. Please arrange followup with Cardiology upon discharge. Thank you for allowing us to participate in the care of this pleasant gentleman. MMODL / IJN: [id number] /
== END 2022-07-06 16:45 | disposition home or self-care (01) | DRG 439 ==
LOC: EC 09:08 → 3SCARD 10:56 → 6NMEDSUR 12:32
PROVIDERS: ADMIT Internal Medicine; ATTEND Internal Medicine
DX: K85.90 Acute pancreatitis without necrosis or infection, unspecified (principal); E66.2 Morbid (severe) obesity with alveolar hypoventilation; K21.9 Gastro-esophageal reflux disease without esophagitis; R07.9 Chest pain, unspecified; E11.42 Type 2 diabetes mellitus with diabetic polyneuropathy; N18.2 Chronic kidney disease, stage 2 (mild); I69.398 Other sequelae of cerebral infarction; H53.8 Other visual disturbances; E55.9 Vitamin D deficiency, unspecified; I25.119 Atherosclerotic heart disease of native coronary artery with unspecified angina pectoris; E11.22 Type 2 diabetes mellitus with diabetic chronic kidney disease; T38.3X5A Adverse effect of insulin and oral hypoglycemic [antidiabetic] drugs, initial encounter; G43.909 Migraine, unspecified, not intractable, without status migrainosus; I25.5 Ischemic cardiomyopathy; F17.210 Nicotine dependence, cigarettes, uncomplicated; I95.9 Hypotension, unspecified; Z91.018 Allergy to other foods; Z59.00 Homelessness unspecified; Z68.39 Body mass index [BMI] 39.0-39.9, adult; Z79.899 Other long term (current) drug therapy; Z87.442 Personal history of urinary calculi; Z87.01 Personal history of pneumonia (recurrent); Z87.19 Personal history of other diseases of the digestive system; Z87.440 Personal history of urinary (tract) infections; Z79.82 Long term (current) use of aspirin; Z79.84 Long term (current) use of oral hypoglycemic drugs; Z71.6 Tobacco abuse counseling; Z95.1 Presence of aortocoronary bypass graft; X58.XXXA Exposure to other specified factors, initial encounter; Z90.49 Acquired absence of other specified parts of digestive tract
CPT/HCPCS: 36415; 71046; 74160; 80053; 80061; 82150; 83690; 83735; 84484; 85025; 85610; 85730; 93005; 93306; 94760; 96360; 99285

== ENCOUNTER 2022-07-13 12:24 | Emergency (ER) | payer MEDICARE, OTHER ==
[2022-07-13] MEDS ORDERED: ONDANSETRON 4 MG/2 ML VIAL IVP STA (13:35)
[2022-07-13] MEDS ORDERED: SODIUM CHLORIDE 0.9% 1,000 ML IV STA (13:35)
[2022-07-13 14:05] LABS: Anisocytosis Slight; Basophils % (A) 0 %; Eosinophils # (A) 0.1 k/uL (0-0.7); Eosinophils % (A) 1 %; HCT 38.5 % (39.0-53.0); HGB 12.5 gm/dL (13.0-17.5); Hypochromasia Slight; Lymphocytes # (A) 1.4 k/uL (1.0-4.8); Lymphocytes % (A) 23 %; MCH 27.6 pg (25.0-35.0); MCHC 32.5 g/dL (31.0-37.0); MCV 84.9 fL (80.0-100.0); Mean Platelet Volume 7.5; Monocytes # (A) 0.3 k/uL (0-1.0); Monocytes % (A) 6 %; Neutrophils # (A) 4.1 k/uL (1.3-7.7); Neutrophils % (A) 68 %; Platelet Count 238 k/uL (150-450); RBC 4.54 m/uL (4.30-5.90); RDW 16.3 % (11.5-15.5); WBC 6.1 k/uL (3.8-10.6)
[2022-07-13 14:14] LABS: ALT 28 U/L (4-49); AST 25 U/L (17-59); African American GFR (CKD) 78 (>60 ml/min/1.73 sqM); Alkaline Phosphatase 72 U/L (38-126); Amylase 46 U/L (30-110); Anion Gap 11 mmol/L; Blood Urea Nitrogen 14 mg/dL (9-20); Calcium 8.8 mg/dL (8.4-10.2); Carbon Dioxide 21 mmol/L (22-30); Chloride 106 mmol/L (98-107); Glucose 108 mg/dL (74-99); Lipase 87 U/L (23-300); Non-African American GFR(CKD) 68 (>60 ml/min/1.73 sqM); Potassium 4.3 mmol/L (3.5-5.1); Sodium 138 mmol/L (137-145); Total Protein 6.7 g/dL (6.3-8.2)
[2022-07-13 14:58] VITALS: RESP 18
[2022-07-13] MEDS ORDERED: ONDANSETRON 4 MG ODT STARTER PACK 2 TAB BTL PO STA (15:05)
--- NOTE | 2022-07-13 15:05 | ED ---
General Adult HPI - General Chief complaint: Nausea/Vomiting/Diarrhea Stated complaint: Vomiting Time Seen by Provider: 07/13/22 12:35 Source: patient, RN notes reviewed, old records reviewed Mode of arrival: ambulatory Limitations: no limitations - History of Present Illness Initial comments: This is a 56-year-old male who presents emergency Department complaining of vomiting since this morning. Patient was recently seen in the hospital for vomiting and some chest pain. Patient was discharged home. Patient states he called Dr. Hernández's office and they sent him into the emergency department. Patient states he does not have any abdominal pain he has no chest pain difficulty breathing shortness of breath. He states that he hasn't vomited in the last 2 hours. Patient states that he gets a little queasy and then he vomits and then he feels better for a short period time. Patient denies any diarrhea. Patient denies any back pain. Patient has any fever chills. - Related Data Home Medications Medication Instructions Recorded Confirmed Atorvastatin [Lipitor] 80 mg PO HS 06/25/13 07/04/22 Metoprolol Tartrate [Lopressor] 50 mg PO BID 06/25/13 07/04/22 Nitroglycerin Sl Tabs [Nitrostat] 0.4 mg SUBLINGUAL Q5M PRN 06/25/13 07/04/22 Ranolazine [Ranexa] 1,000 mg PO BID 09/23/13 07/04/22 Pantoprazole Sodium [Protonix] 40 mg PO DAILY 07/02/14 07/04/22 Isosorbide Mononitrate ER [Imdur] 60 mg PO BID 10/13/15 07/04/22 Aspirin [Adult Low Dose Aspirin EC] 81 mg PO HS 01/11/16 07/04/22 amLODIPine [Norvasc] 2.5 mg PO DAILY 09/26/17 07/04/22 ALPRAZolam [Xanax] 0.25 mg PO DAILY PRN 04/11/20 07/04/22 Semaglutide [Ozempic] 1 mg SQ MO 07/04/22 07/04/22 lisinopriL [Zestril] 20 mg PO DAILY 07/04/22 07/04/22 Previous Rx's Medication Instructions Recorded metFORMIN HCL [Glucophage] 500 mg PO BID #0 10/22/18 Allergies Allergy/AdvReac Type Severity Reaction Status Date / Time chocolate flavor Allergy Rash/Hives Verified 07/13/22 12:38 [place] And Derivatives Allergy Rash/Hives Verified 07/13/22 12:38 [[place]] Review of Systems ROS Statement: Those systems with pertinent positive or pertinent negative responses have been documented in the HPI. ROS Other: All systems not noted in ROS Statement are negative. 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 Last Myocardial Infarction Date:: 2020 History of Any Multi-Drug Resistant Organisms: None Reported Past Surgical History: Adenoidectomy, Cholecystectomy, Coronary Bypass/CABG, Heart Catheterization, Heart Catheterization With Stent, Hernia Repair Additional Past Surgical History / Comment(s): Several caths with last one done 11/26 total 7 stents (states placed 01/2011, and 03/2019. 2020), CABG 5 vessel in 2008 (stents came after open heart was done), EGD/colonoscopy, hemorrhoid banding, umbilical hernia repair Past Anesthesia/Blood Transfusion Reactions: Previous Problems w/ Anesthesia Additional Past Anesthesia/Blood Transfusion Reaction / Comment(s): stated "wakes up slower than normal" Date of Last Stent Placement:: 04/26 Past Psychological History: Anxiety, Depression Smoking Status: Former smoker, Vaper Past Alcohol Use History: None Reported Past Drug Use History: Marijuana - Past Family History Father Family Medical History: Cancer, Coronary Artery Disease (CAD) Additional Family Medical History / Comment(s): dad is 75. stents, bypass, prostate and lung cancer. Mother Additional Family Medical History / Comment(s): mom 1997 at age 59- brain aneurysm General Exam - General Exam Comments Initial Comments: GENERAL: Patient is well-developed and well-nourished. Patient is nontoxic and well- hydrated and is in no acute distress. ENT: Neck is soft and supple. No significant lymphadenopathy is noted. Oropharynx is clear. Moist mucous membranes. Neck has full range of motion without eliciting any pain. EYES: The sclera were anicteric and conjunctiva were pink and moist. Extraocular movements were intact and pupils were equal round and reactive to light. Eyelids were unremarkable. PULMONARY: Unlabored respirations. Good breath sounds bilaterally. No audible rales rhonchi or wheezing was noted. CARDIOVASCULAR: There is a regular rate and rhythm without any murmurs gallops or rubs. ABDOMEN: Soft and nontender with normal bowel sounds. SKIN: Skin is clear with no lesions or rashes and otherwise unremarkable. NEUROLOGIC: Patient is alert and oriented x3. Cranial nerves II through XII are grossly intact. Motor and sensory are also intact. Normal speech, volume and content. Symmetrical smile. MUSCULOSKELETAL: Normal extremities with adequate strength and full range of motion. No lower extremity swelling or edema. No calf tenderness. LYMPHATICS: No significant lymphadenopathy is noted PSYCHIATRIC: Normal psychiatric evaluation. Limitations: no limitations Course Vital Signs 07/13/22 12:34 Temperature 97.8 F Pulse Rate 87 Respiratory 16 Rate Blood Pressure 147/93 O2 Sat by Pulse 98 Oximetry Medical Decision Making - Medical Decision Making Was pt. sent in by a medical professional or institution ([facility], [employer], urgent care, hospital, or half-way...) When possible be specific @ -Dr. Hernández's office sent the patient in Did you speak to anyone other than the patient for history (EMS, parent, family, police, friend...)? What history was obtained from this source @ -No Did you review nursing and triage notes (agree or disagree)? Why? @ -I reviewed and agree with nursing and triage notes Were old charts reviewed (outside hosp., previous admission, EMS record, old EKG, old radiological studies, urgent care reports/EKG's, half-way records)? Report findings @ -The prior charts prior labwork on this patient Differential Diagnosis (chest pain, altered mental status, abdominal pain women, abdominal pain men, vaginal bleeding, weakness, fever, dyspnea, syncope, headache, dizziness, GI bleed, back pain, seizure, CVA, palpatations, mental hea lth, musculoskeletal)? @ -Differential Abdominal Pain Men: Appendicitis, cholecystitis, diverticulosis, ischemic bowel, pancreatitis, hepatitis, UTI, gastroenteritis, AAA, incarcerated hernia, bowel obstruction, constipation, inflammatory bowel, hepatitis, peptic ulcer disease, splenic infarction, perforated viscus, testicular torsion, this is not meant to be an all-inclusive list EKG interpreted by me (3pts min.). @ -As above X-rays interpreted by me (1pt min.). @ -None done CT interpreted by me (1pt min.). @ -None done U/S interpreted by me (1pt. min.). @ -None done What testing was considered but not performed or refused? (CT, X-rays, U/S, labs)? Why? @ -None What meds were considered but not given or refused? Why? @ -None Did you discuss the management of the patient with other professionals (professionals i.e. , PA, [employer], lab, RT, psych nurse, administrator social welfare, trolley car overhauler, teacher, correctional probation officer, disability case manager)? Give summary @ -I spoke with Dr. Hernández once all the lab work was back and he agreed to f sabralow patient up as an outpatient Was smoking cessation discussed for >3mins.? @ -No Was critical care preformed (if so, how long)? @ -No Were there social determinants of health that impacted care today? How? (Homelessness, low income, unemployed, alcoholism, drug addiction, transportation, low edu. Level, literacy, decrease access to med. care, detention, rehab)? @ -No Was there de-escalation of care discussed even if they declined (Discuss DNR or withdrawal of care, Hospice)? DNR status @ -No What co-morbidities impacted this encounter? (DM, HTN, Smoking, COPD, CAD, Cancer, CVA, ARF, Chemo, Hep., AIDS, mental health diagnosis, sleep apnea, morbid obesity)? @ -None Was patient admitted / discharged? Hospital course, mention meds given and route, prescriptions, significant lab abnormalities, going to OR and other pertinent info. @ -Had no vomiting while in the emergency department. Patient was given fluids and felt better at this time. After lab work came back to 1 pack and reevaluate him he was not vomiting and felt good enough to go home he will be sent home with Claudia. Undiagnosed new problem with uncertain prognosis? @ -No Drug Therapy requiring intensive monitoring for toxicity (Heparin, Nitro, Insulin, Cardizem)? @ -No Were any procedures done? @ -No Diagnosis/symptom? @ -Vomiting Acute, or Chronic, or Acute on Chronic? @ -Acute Uncomplicated (without systemic symptoms) or Complicated (systemic symptoms)? @ -Uncomplicated Side effects of treatment? @ -No Exacerbation, Progression, or Severe Exacerbation? @ -No Poses a threat to life or bodily function? How? (Chest pain, [place], [place], pneumonia, PE, COPD, DKA, ARF, appy, cholecystitis, CVA, Diverticulitis, Homicidal, Suicidal, threat to staff... and all critical care pts) @ -No - Lab Data Result diagrams: 07/13/22 13:57 07/13/22 13:57 Lab Results 07/13/22 07/13/22 Range/Units 13:57 13:57 WBC 6.1 (3.8-10.6) k/uL RBC 4.54 (4.30-5.90) m/uL Hgb 12.5 L (13.0-17.5) gm/dL Hct 38.5 L (39.0-53.0) % MCV 84.9 (80.0-100.0) fL MCH 27.6 (25.0-35.0) pg MCHC 32.5 (31.0-37.0) g/dL RDW 16.3 H (11.5-15.5) % Plt Count 238 (150-450) k/uL MPV 7.5 Neutrophils % 68 % Lymphocytes % 23 % Monocytes % 6 % Eosinophils % 1 % Basophils % 0 % Neutrophils # 4.1 (1.3-7.7) k/uL Lymphocytes # 1.4 (1.0-4.8) k/uL Monocytes # 0.3 (0-1.0) k/uL Eosinophils # 0.1 (0-0.7) k/uL Basophils # 0.0 (0-0.2) k/uL Hypochromasia Slight Anisocytosis Slight Sodium 138 (137-145) mmol/L Potassium 4.3 (3.5-5.1) mmol/L Chloride 106 (98-107) mmol/L Carbon Dioxide 21 L (22-30) mmol/L Anion Gap 11 mmol/L BUN 14 (9-20) mg/dL Creatinine 1.20 (0.66-1.25) mg/dL Est GFR (CKD-EPI)AfAm 78 (>60 ml/min/1.73 sqM) Est GFR (CKD-EPI)NonAf 68 (>60 ml/min/1.73 sqM) Glucose 108 H (74-99) mg/dL Calcium 8.8 (8.4-10.2) mg/dL Total Bilirubin 1.0 (0.2-1.3) mg/dL AST 25 (17-59) U/L ALT 28 (4-49) U/L Alkaline Phosphatase 72 (38-126) U/L Total Protein 6.7 (6.3-8.2) g/dL Albumin 4.0 (3.5-5.0) g/dL Amylase 46 (30-110) U/L Lipase 87 (23-300) U/L Disposition Clinical Impression: Acute vomiting Disposition: HOME SELF-CARE Instructions (If sedation given, give patient instructions): Acute Nausea and Vomiting (ED) Is patient prescribed a controlled substance at d/c from ED?: No Referrals: Sharron Hernández MD [Primary Care Provider] - 1-2 days Time of Disposition: 15:03
[2022-07-13 15:50] VITALS: BP 127/94; PULSE 80; TEMP 97.6
== END 2022-07-13 15:56 | disposition home or self-care (01) ==
LOC: EC 12:24
DX: R11.10 Vomiting, unspecified (principal); E11.9 Type 2 diabetes mellitus without complications; E78.5 Hyperlipidemia, unspecified; F32.A Depression, unspecified; F41.9 Anxiety disorder, unspecified; G47.30 Sleep apnea, unspecified; I10 Essential (primary) hypertension; I25.10 Atherosclerotic heart disease of native coronary artery without angina pectoris; I25.2 Old myocardial infarction; F12.90 Cannabis use, unspecified, uncomplicated; Z79.82 Long term (current) use of aspirin; Z79.899 Other long term (current) drug therapy; Z87.891 Personal history of nicotine dependence; Z91.018 Allergy to other foods; Z90.49 Acquired absence of other specified parts of digestive tract
CPT/HCPCS: 36415; 80053; 82150; 83690; 85025; 99284; 96374; 96361; J2405; S0119

== ENCOUNTER 2022-07-20 20:35 | Inpatient (IN) | payer MEDICARE, OTHER ==
[2022-07-20] MEDS ORDERED: SODIUM CHLORIDE 0.9% 500 ML 500 ML IV STA (20:51)
[2022-07-20] MEDS ORDERED: ONDANSETRON 4 MG/2 ML VIAL IVP STA (20:51)
--- NOTE | 2022-07-20 20:54 | ED ---
Chest Pain HPI - General Chief Complaint: Chest Pain Stated Complaint: CHEST PAIN Time Seen by Provider: 07/20/22 20:41 Source: patient, EMS Mode of arrival: EMS Limitations: no limitations - History of Present Illness Initial Comments: This patient is a 56-year-old man who presents 7 evaluation of chest pain and of nausea and vomiting. The patient has had a couple of episodes like this going back over the past weeks. He states that it is somewhat similar to previous episodes related to his heart. He has had history of previous MT including 5 vessel CABG and 5 or 6 stents placed after that. Symptoms developed tonight around 7 PM while he was sitting on the couch. The patient states the pain as a squeezing, he has not noted worsening or relieving factors. He did not know relation to food. He has had multiple rounds of vomiting, denies hematemesis or coffee-ground material. MD Complaint: chest pain, other (Vomiting) Onset/Timin -: hour(s) Onset: during rest Pain Location: substernal Pain Radiation: none Severity: moderate Quality: tightness Consistency: constant Improves With: nothing Worsens With: nothing Anginal Symptoms: nausea, vomiting Treatments Prior to Arrival: aspirin, nitroglycerin - Related Data Home Medications Medication Instructions Recorded Confirmed Atorvastatin [Lipitor] 80 mg PO HS 06/25/13 07/20/22 Metoprolol Tartrate [Lopressor] 50 mg PO BID 06/25/13 07/20/22 Nitroglycerin Sl Tabs [Nitrostat] 0.4 mg SUBLINGUAL Q5M PRN 06/25/13 07/20/22 Ranolazine [Ranexa] 1,000 mg PO BID 09/23/13 07/20/22 Pantoprazole Sodium [Protonix] 40 mg PO DAILY 07/02/14 07/20/22 Isosorbide Mononitrate ER [Imdur] 60 mg PO BID 10/13/15 07/20/22 Aspirin [Adult Low Dose Aspirin EC] 81 mg PO HS 01/11/16 07/20/22 amLODIPine [Norvasc] 2.5 mg PO DAILY 09/26/17 07/20/22 ALPRAZolam [Xanax] 0.25 mg PO DAILY PRN 04/11/20 07/20/22 lisinopriL [Zestril] 20 mg PO DAILY 07/04/22 07/20/22 Previous Rx's Medication Instructions Recorded metFORMIN HCL [Glucophage] 500 mg PO BID #0 11/27/17 Metoclopramide [Reglan] 5 mg PO AC-TID #90 tab 07/21/22 Allergies Allergy/AdvReac Type Severity Reaction Status Date / Time chocolate flavor Allergy Rash/Hives Verified 07/20/22 21:50 [place] And Derivatives Allergy Rash/Hives Verified 07/20/22 21:50 [[place]] Review of Systems ROS Statement: Those systems with pertinent positive or pertinent negative responses have been documented in the HPI. ROS Other: All systems not noted in ROS Statement are negative. Constitutional: Denies: fever, chills Respiratory: Denies: cough, dyspnea Cardiovascular: Reports: chest pain. Denies: palpitations, edema Gastrointestinal: Reports: nausea, vomiting. Denies: abdominal pain, diarrhea, hematemesis, melena Genitourinary: Denies: dysuria, hematuria Musculoskeletal: Denies: back pain Skin: Denies: rash Neurological: Denies: headache, weakness EKG Findings - EKG Comments: EKG Findings:: Versus the comparison ECG (07/07/22), there do appear to be inferior T inversions - EKG Results: EKG: interpreted by ERMD, sinus rhythm (With occasional PVC Rate 95 bpm), normal axis, normal QRS - Blocks, Early Branch, Hypertrophy, ST Abn: Repolarization changes or abnormalities: ST or T wave suggestive of ischemia Past Medical History Past Medical History: Coronary Artery Disease (CAD), Chest Pain / Angina, CVA/TIA, Diabetes Mellitus, GI Bleed, Hyperlipidemia, Hypertension, Myocardial Infarction ([place]), Pneumonia, Sleep Apnea/CPAP/BIPAP Additional Past Medical History / Comment(s): 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 Last Myocardial Infarction Date:: 2020 History of Any Multi-Drug Resistant Organisms: None Reported Past Surgical History: Adenoidectomy, Cholecystectomy, Coronary Bypass/CABG, Heart Catheterization, Heart Catheterization With Stent, Hernia Repair Additional Past Surgical History / Comment(s): Several caths with last one done 11/26 total 7 stents (states placed 01/2011, and 03/2019. 2020), CABG 5 vessel in 2008 (stents came after open heart was done), EGD/colonoscopy, hemorrhoid banding, umbilical hernia repair Past Anesthesia/Blood Transfusion Reactions: Previous Problems w/ Anesthesia Additional Past Anesthesia/Blood Transfusion Reaction / Comment(s): stated "wakes up slower than normal" Date of Last Stent Placement:: 04/26 Past Psychological History: Anxiety, Depression Smoking Status: Former smoker, Vaper Past Alcohol Use History: None Reported Past Drug Use History: Marijuana - Past Family History Father Family Medical History: Cancer, Coronary Artery Disease (CAD) Additional Family Medical History / Comment(s): dad is 75. stents, bypass, prostate and lung cancer. Mother Additional Family Medical History / Comment(s): mom 1997 at age 59- brain aneurysm General Exam Limitations: no limitations General appearance: alert, in no apparent distress Head exam: Present: atraumatic, normocephalic Eye exam: Present: normal appearance. Absent: scleral icterus, conjunctival injection Neck exam: Present: normal inspection Respiratory exam: Present: normal lung sounds bilaterally. Absent: respiratory distress, wheezes, rales, rhonchi, stridor Cardiovascular Exam: Present: regular rate, normal rhythm, normal heart sounds. Absent: systolic murmur, diastolic murmur, rubs, gallop GI/Abdominal exam: Present: soft. Absent: distended, tenderness, guarding, rebound, rigid, mass Extremities exam: Present: normal inspection, normal capillary refill. Absent: pedal edema, calf tenderness Back exam: Present: normal inspection. Absent: CVA tenderness (R), CVA tenderness (L) Neurological exam: Present: alert Skin exam: Present: warm, dry, intact, normal color. Absent: rash Course Vital Signs 07/20/22 07/20/22 07/20/22 20:44 21:11 22:24 Temperature 97.6 F Pulse Rate 92 89 Pulse Rate [ Boiler Fireman ] Respiratory 18 19 Rate Blood Pressure 114/97 124/91 Blood Pressure [Left Arm] O2 Sat by Pulse 96 94 L Oximetry 07/20/22 07/21/22 23:48 00:07 Temperature 97.8 F Pulse Rate 85 Pulse Rate [ 86 Boiler Fireman ] Respiratory 16 18 Rate Blood Pressure 127/98 Blood Pressure 111/79 [Left Arm] O2 Sat by Pulse 95 95 Oximetry Chest Pain MDM - MDM This patient's 56-year-old man presenting with recurrence of chest pain and nausea/vomiting. Today's ECG in comparison with the previous from July 07 does appear to have new T inversions in inferior leads and normalization of T inversions in lateral leads. Given this will admit patient for serial cardiac enzymes, telemetry monitoring, cardiology consultation. Was pt. sent in by a medical professional or institution (, PA, RENEWABLE ENERGY CONSULTANT, urgent care, hospital, or long term...) When possible be specific @ -[No] Did you speak to anyone other than the patient for history (EMS, parent, family, police, friend...)? What history was obtained from this source @ -[No] Did you review nursing and triage notes (agree or disagree)? Why? @ -[I reviewed and agree with nursing and triage notes] Were old charts reviewed (outside hosp., previous admission, EMS record, old EKG, old radiological studies, urgent care reports/EKG's, long term records)? Report findings @ -[old charts were reviewed] Differential Diagnosis (chest pain, altered mental status, abdominal pain women, abdominal pain men, vaginal bleeding, weakness, fever, dyspnea, syncope, headache, dizziness, GI bleed, back pain, seizure, CVA, palpatations, mental health, musculoskeletal)? @ -[Differential Chest Pain: Stable Angina, Unstable Angina, STEMI, NSTEMI Aortic Dissection, Pneumothorax, Musculoskeletal, Esophageal Spasm GERD, Cholecystitis, Pancreatitis, Zoster, this is not meant to be an all-inclusive list. EKG interpreted by me (3pts min.). @ -[As above] X-rays interpreted by me (1pt min.). @ -[As above CT interpreted by me (1pt min.). @ -[None done] U/S interpreted by me (1pt. min.). @ -[None done] What testing was considered but not performed or refused? (CT, X-rays, U/S, labs)? Why? @ -[None] What meds were considered but not given or refused? Why? @ -[None] Did you discuss the management of the patient with other professionals (professionals i.e. , PA, RENEWABLE ENERGY CONSULTANT, lab, RT, psych nurse, social work msw, orchid worker, teacher, security control room officer, returned case inspector)? Give summary @ -[Case discussed with admitting physician Was smoking cessation discussed for >3mins.? @ -[No] Was critical care preformed (if so, how long)? @ -[No] Were there social determinants of health that impacted care today? How? (Homelessness, low income, unemployed, alcoholism, drug addiction, transportation, low edu. Level, literacy, decrease access to med. care, intermediate, rehab)? @ -[No] Was there de-escalation of care discussed even if they declined (Discuss DNR or withdrawal of care, Hospice)? DNR status @ -[No] What co-morbidities impacted this encounter? (DM, HTN, Smoking, COPD, CAD, Cancer, CVA, ARF, Chemo, Hep., AIDS, mental health diagnosis, sleep apnea, morbid obesity)? @ -[None] Was patient admitted / discharged? Hospital course, mention meds given and route, prescriptions, significant lab abnormalities, going to OR and other pertinent info. @ -[The patient is admitted to have cardiology consultation as well as serial cardiac enzymes and telemetry monitoring Undiagnosed new problem with uncertain prognosis? @ -[No] Drug Therapy requiring intensive monitoring for toxicity (Heparin, Nitro, Insulin, Cardizem)? @ -[No] Were any procedures done? @ -[No] Diagnosis/symptom? @ -[Acute chest pain Acute, or Chronic, or Acute on Chronic? @ - Uncomplicated (without systemic symptoms) or Complicated (systemic symptoms)? @ -[Uncomplicated Side effects of treatment? @ -[No] Exacerbation, Progression, or Severe Exacerbation? @ -[No] Poses a threat to life or bodily function? How? (Chest pain, [place], MT, pneumonia, PE, COPD, DKA, ARF, appy, cholecystitis, CVA, Diverticulitis, Homicidal, Suicidal, threat to staff... and all critical care pts) @ -[Chest pain of cardiac etiology may be life-threatening, Disposition Clinical Impression: Chest pain, Acute vomiting Disposition: ADMITTED IP TO THIS HOSP Condition: Undetermined Is patient prescribed a controlled substance at d/c from ED?: No
[2022-07-20] MEDS ORDERED: MORPHINE SULFATE 4 MG/ML SYRINGE IV STA ×2 (20:59→22:17)
[2022-07-20 21:03] LABS: Anisocytosis Slight; Basophils % (A) 0 %; Eosinophils # (A) 0.1 k/uL (0-0.7); Eosinophils % (A) 1 %; HGB 12.5 gm/dL (13.0-17.5); Hypochromasia Slight; Lymphocytes # (A) 1.5 k/uL (1.0-4.8); Lymphocytes % (A) 14 %; MCH 27.2 pg (25.0-35.0); MCHC 32.1 g/dL (31.0-37.0); MCV 84.6 fL (80.0-100.0); Mean Platelet Volume 7.3; Monocytes # (A) 0.6 k/uL (0-1.0); Monocytes % (A) 5 %; Neutrophils # (A) 7.9 k/uL (1.3-7.7); Neutrophils % (A) 77 %; Platelet Count 264 k/uL (150-450); RBC 4.61 m/uL (4.30-5.90); RDW 16.3 % (11.5-15.5); WBC 10.3 k/uL (3.8-10.6)
[2022-07-20 21:29] LABS: ALT 26 U/L (4-49); AST 24 U/L (17-59); African American GFR (CKD) 78 (>60 ml/min/1.73 sqM); Albumin 3.8 g/dL (3.5-5.0); Alkaline Phosphatase 76 U/L (38-126); Amylase 58 U/L (30-110); Anion Gap 11 mmol/L; Blood Urea Nitrogen 19 mg/dL (9-20); Carbon Dioxide 21 mmol/L (22-30); Chloride 108 mmol/L (98-107); Glucose 100 mg/dL (74-99); Lipase 161 U/L (23-300); Non-African American GFR(CKD) 68 (>60 ml/min/1.73 sqM); Potassium 4.3 mmol/L (3.5-5.1); Sodium 140 mmol/L (137-145); Total Bilirubin 0.8 mg/dL (0.2-1.3); Total Protein 6.6 g/dL (6.3-8.2)
[2022-07-20 22:14] LABS: Glucose,Whole Blood 93 mg/dL (70-110)
[2022-07-20] MEDS ORDERED: NITROGLYCERIN SL TABS 0.4 MG TAB SUBLINGUAL STA (22:17)
[2022-07-20] MEDS ORDERED: PROMETHAZINE 25 MG TAB PO STA (22:19)
[2022-07-20] MEDS ORDERED: NITROGLYCERIN SL TABS 0.4 MG TAB SUBLINGUAL PRN (22:44)
[2022-07-20] MEDS ORDERED: MORPHINE SULFATE 4 MG/ML SYRINGE IV PRN (22:44)
[2022-07-20] MEDS ORDERED: HEPARIN SODIUM 1,000 UN/ML (10ML VL) IV ONE (22:44)
[2022-07-20] MEDS ORDERED: HEPARIN SOD,PORK IN 0.45% NACL 25,000 UNIT in 0.45% NACL 1 250ML.BAG IV SCH (22:45)
[2022-07-20] MEDS: SODIUM CHLORIDE 0.9% 1,000 ML IV SCH (23:00)
[2022-07-21 00:10] LABS: Glucose,Whole Blood 95 mg/dL (70-110)
[2022-07-21 03:03] VITALS: RESP 16
[2022-07-21 06:10] LABS: Glucose,Whole Blood 88 mg/dL (70-110)
[2022-07-21 06:28] LABS: INR 1.1 (<1.2)
[2022-07-21] MEDS: SODIUM CHLORIDE 0.9% 1,000 ML IV SCH (08:44)
[2022-07-21 08:47] VITALS: TEMP 98.3
[2022-07-21] MEDS ORDERED: ASPIRIN 325 MG TAB PO SCH (09:00)
[2022-07-21] MEDS ORDERED: ONDANSETRON 4 MG/2 ML VIAL IVP PRN (09:26)
[2022-07-21] MEDS ORDERED: ISOSORBIDE MONONITRATE ER 60 MG TAB.ER.24H PO SCH (09:45)
[2022-07-21] MEDS ORDERED: lisinopriL 20 MG TAB PO SCH (09:45)
[2022-07-21] MEDS ORDERED: METOPROLOL TARTRATE 50 MG TAB PO SCH (09:45)
[2022-07-21] MEDS ORDERED: amLODIPine 2.5 MG TAB PO SCH (09:45)
[2022-07-21] MEDS ORDERED: RANOLAZINE 500 MG TAB.ER.12H PO SCH (09:45)
[2022-07-21 10:54] LABS: Chol/HDL Ratio 1.85 Ratio; VLDL Calculation 16.26 mg/dL (5.00-40.00)
[2022-07-21 12:01] LABS: Glucose,Whole Blood 86 mg/dL (70-110)
--- NOTE | 2022-07-21 12:08 | CA ---
Transthoracic Echo Report Name: Guido Crump Age: 56 Gender: M : 1965 Exam Date: 07/21/2022 09:46 Exam Location: [facility] Ht (in): 71 Wt (lb): 270 Ordering Physician: Sussy Grimaldo Attending/Referring Phys: [id number], [facility] Medical Consultant Bimal Al Procedure CPT: Indications: LV function Cardiac Hx: Technical Quality: Technically difficult study Contrast 1: Lumason Total Dose (mL): 5 Contrast 2: Agitated Saline Total Dose (mL): 10 MEASUREMENTS (Male / Female) Normal Values 2D ECHO LV Diastolic Diameter PLAX 5.0 cm 4.2 - 5.9 / 3.9 - 5.3 cm LV Systolic Diameter PLAX 4.0 cm IVS Diastolic Thickness 1.1 cm 0.6 - 1.0 / 0.6 - 0.9 cm LVPW Diastolic Thickness 1.1 cm 0.6 - 1.0 / 0.6 - 0.9 cm LV Relative Wall Thickness 0.4 RV Internal Dim ED PLAX 3.4 cm LV Diastolic Volume MOD BP 60.7 cm??? 67 - 155 / 56 - 104 cm??? LV Systolic Volume MOD BP 28.2 cm??? 22 - 58 / 19 - 49 cm??? LV Ejection Fraction MOD BP 53.5 % >= 55 % LV Diastolic Volume MOD 4C 82.3 cm??? LV Systolic Volume MOD 4C 40.9 cm??? LV Ejection Fraction MOD 4C 50.3 % LV Diastolic Length 4C 8.2 cm LV Systolic Length 4C 7.1 cm LV Diastolic Volume MOD 2C 27.9 cm??? LV Systolic Volume MOD 2C 13.5 cm??? LV Ejection Fraction MOD 2C 51.7 % LV Diastolic Length 2C 5.1 cm LV Systolic Length 2C 4.9 cm FINDINGS Left Ventricle Left ventricular ejection fraction is estimated at 50-55 %.no obvious regional wall motion abnormalities. Left ventricular cavity size normal. Right Ventricle Right Atrium Left Atrium Mitral Valve Aortic Valve Tricuspid Valve Pulmonic Valve Pericardium Aorta CONCLUSIONS Limited echo. Left ventricle systolic function borderline normal with no segmental wall motion abnormality Previewed by: Dr. Freda Jorgensen MD (Electronically Signed) Final Date: 21 July 2022 12:07
[2022-07-21] MEDS ORDERED: METOCLOPRAMIDE 5 MG TAB PO SCH (12:30)
[2022-07-21 12:33] VITALS: BP 118/75; PULSE 73
--- NOTE | 2022-07-21 12:40 | P.CRDCN ---
History of Present Illness Consult date: 07/21/22 History of present illness: HISTORY OF PRESENT ILLNESS: This is a 56-year-old male with a past medical history significant for coronary artery disease with previous stenting and CABG, hypertension, hyperlipidemia, diabetes, and nicotine dependence. Patient follows in the office with Dr. Jorgensen. We have been asked to see the patient in consultation for chest pain. Patient examined at the bedside. Patient states last night he began having naus ea and vomiting. He states after his episodes of vomiting he began to have chest discomfort. He denied any radiation of the pain. Denied any shortness of breath. He denies any chest pain or pressure at the time of examination. Vital signs are stable. * EKG reveals sinus mechanism with T-wave inversions in inferior leads * Laboratory data: WBC 10.3. Hemoglobin 12.5. Platelet count 264. Sodium 140. Potassium 4.3. BUN 19. Creatinine 1.2. Troponin negative 3 * Current home cardiac medications include lisinopril 20 mg daily, amlodipine 2.5 mg daily, Ranexa 1000 mg twice a day, Metoprolol tartrate 50 mg twice a day, Imdur 60 mg twice a day, Lipitor 80 mg at night, and aspirin 81 mg daily * Echocardiogram obtained revealing ejection fraction 50-55% with no obvious regional wall motion abnormalities * Cardiac catheterization history: April 2020 with stenting of the proximal circumflex REVIEW OF SYSTEMS: At the time of my exam: CONSTITUTIONAL: Denies fever or chills. HEENT: Denies blurred vision, vision changes, or eye pain. Denies hemoptysis CARDIOVASCULAR: Denies chest pain. Denies orthopnea. Denies PND. Denies palpitations RESPIRATORY: Denies shortness of breath. GASTROINTESTINAL: Denies abdominal pain. Denies nausea or vomiting. HEMATOLOGIC: Denies bleeding disorders. GENITOURINARY: Denies any blood in urine. SKIN: Denies pruitis. Denies rash. PHYSICAL EXAM: VITAL SIGNS: Reviewed. GENERAL: Well-developed in no acute distress. HEENT: Head is normocephalic. Pupils are equal, round. Sclerae anicteric. Mucous membranes of the mouth are moist. Neck supple. No JVD or thyromegaly LUNGS: Respirations even and unlabored. Lungs essentially clear to auscultation bilaterally. HEART: Regular rate and rhythm. S1 and S2 heard. ABDOMEN: Soft. Nondistended. Nontender. EXTREMITIES: Normal range of motion. No clubbing or cyanosis. Peripheral pulses intact. No lower extremity edema NEUROLOGIC: Awake and alert. Oriented x 3. ASSESSMENT: Nausea and vomiting Chest pain, atypical, troponin negative 3 Coronary artery disease with four-vessel CABG in 2008 and subsequent stenting Hypertension Hyperlipidemia Diabetes Former nicotine dependence PLAN: An acute coronary event has been ruled out Resume home cardiac medications Patient is stable for discharge home today from a cardiac standpoint Recommend outpatient stress testing Further recommendations pending patient's course Nurse practitioner note has been reviewed by physician. Signing provider agrees with the documented findings, assessment, and plan of care. 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 Last Myocardial Infarction Date:: 2020 History of Any Multi-Drug Resistant Organisms: None Reported Past Surgical History: Adenoidectomy, Cholecystectomy, Coronary Bypass/CABG, Heart Catheterization, Heart Catheterization With Stent, Hernia Repair Additional Past Surgical History / Comment(s): Several caths with last one done 11/26 total 7 stents (states placed 01/2011, and 03/2019. 2020), CABG 5 vessel in 2008 (stents came after open heart was done), EGD/colonoscopy, hemorrhoid banding, umbilical hernia repair Past Anesthesia/Blood Transfusion Reactions: Previous Problems w/ Anesthesia Additional Past Anesthesia/Blood Transfusion Reaction / Comment(s): stated "wakes up slower than normal" Date of Last Stent Placement:: 04/26 Past Psychological History: Anxiety, Depression Smoking Status: Former smoker, Vaper Past Alcohol Use History: None Reported Past Drug Use History: Marijuana - Past Family History Father Family Medical History: Cancer, Coronary Artery Disease (CAD) Additional Family Medical History / Comment(s): dad is 75. stents, bypass, prostate and lung cancer. Mother Additional Family Medical History / Comment(s): mom 1997 at age 59- brain aneurysm Medications and Allergies Home Medications Medication Instructions Recorded Confirmed Type Atorvastatin [Lipitor] 80 mg PO HS 06/25/13 07/20/22 History Metoprolol Tartrate [Lopressor] 50 mg PO BID 06/25/13 07/20/22 History Nitroglycerin Sl Tabs [Nitrostat] 0.4 mg SUBLINGUAL Q5M PRN 06/25/13 07/20/22 History Ranolazine [Ranexa] 1,000 mg PO BID 09/23/13 07/20/22 History Pantoprazole Sodium [Protonix] 40 mg PO DAILY 07/02/14 07/20/22 History Isosorbide Mononitrate ER [Imdur] 60 mg PO BID 10/13/15 07/20/22 History Aspirin [Adult Low Dose Aspirin EC] 81 mg PO HS 01/11/16 07/20/22 History amLODIPine [Norvasc] 2.5 mg PO DAILY 09/26/17 07/20/22 History metFORMIN HCL [Glucophage] 500 mg PO BID #0 11/27/17 07/20/22 Rx ALPRAZolam [Xanax] 0.25 mg PO DAILY PRN 04/11/20 07/20/22 History Semaglutide [Ozempic] 1 mg SQ MO 07/04/22 07/20/22 History lisinopriL [Zestril] 20 mg PO DAILY 07/04/22 07/20/22 History Allergies Allergy/AdvReac Type Severity Reaction Status Date / Time chocolate flavor Allergy Rash/Hives Verified 07/20/22 21:50 [place] And Derivatives Allergy Rash/Hives Verified 07/20/22 21:50 [Gray] Physical Exam Vitals: Vital Signs Temp Pulse Pulse Resp BP BP Pulse Ox 07/21/22 08:27 93 L 07/21/22 08:00 98.3 F 81 16 153/76 96 07/21/22 03:02 73 16 120/80 96 07/21/22 01:12 73 07/21/22 00:17 97.8 F 86 18 111/79 96 07/21/22 00:07 97.8 F 86 18 111/79 95 07/20/22 23:48 85 16 127/98 95 07/20/22 22:24 89 19 124/91 94 L 07/20/22 21:11 97.6 F 07/20/22 20:44 92 18 114/97 96 FiO2 07/21/22 08:27 21 07/21/22 08:00 07/21/22 03:02 07/21/22 01:12 07/21/22 00:17 07/21/22 00:07 07/20/22 23:48 07/20/22 22:24 07/20/22 21:11 07/20/22 20:44 Intake and Output 07/20/22 07/21/22 07/21/22 22:59 06:59 14:59 Intake Total 76.333 Balance 76.333 Intake: Intake, IV Titration 76.333 Amount Heparin Sod,Pork in 0.45% 76.333 NaCl 25,000 unit In 0.45 % NaCl 1 250ml.bag @ 8. 1653 UNITS/KG/HR 10 mls/ hr IV .Q24H [facility] Rx#: [id number] Oral 0 Other: Voiding Method Toilet Toilet Urinal Urinal Weight 122.47 kg 122.47 kg Results 07/20/22 20:56 07/20/22 20:56 Cardiac Enzymes 07/20/22 07/20/22 07/20/22 Range/Units 20:56 20:56 23:09 AST 24 (17-59) U/L Troponin I <0.012 <0.012 (0.000-0.034) ng/mL 07/21/22 Range/Units 04:16 AST (17-59) U/L Troponin I <0.012 (0.000-0.034) ng/mL Coagulation 07/21/22 07/21/22 Range/Units 06:07 06:07 PT 11.0 (9.0-12.0) sec APTT 32.4 H (22.0-30.0) sec Lipids 07/21/22 Range/Units 06:07 Triglycerides 81.30 (0.00-149.00) mg/dL Cholesterol 77.00 (0.00-200.00) mg/dL HDL Cholesterol 41.70 (40.00-60.00) mg/dL Cholesterol/HDL Ratio 1.85 Ratio CBC 07/20/22 Range/Units 20:56 WBC 10.3 (3.8-10.6) k/uL RBC 4.61 (4.30-5.90) m/uL Hgb 12.5 L (13.0-17.5) gm/dL Hct 39.0 (39.0-53.0) % Plt Count 264 (150-450) k/uL Comprehensive Metabolic Panel 07/20/22 Range/Units 20:56 Sodium 140 (137-145) mmol/L Potassium 4.3 (3.5-5.1) mmol/L Chloride 108 H (98-107) mmol/L Carbon Dioxide 21 L (22-30) mmol/L BUN 19 (9-20) mg/dL Creatinine 1.20 (0.66-1.25) mg/dL Glucose 100 H (74-99) mg/dL Calcium 9.0 (8.4-10.2) mg/dL AST 24 (17-59) U/L ALT 26 (4-49) U/L Alkaline Phosphatase 76 (38-126) U/L Total Protein 6.6 (6.3-8.2) g/dL Albumin 3.8 (3.5-5.0) g/dL Current Medications Generic Name Dose Route Start Last Admin Trade Name Freq PRN Reason Stop Dose Admin Amlodipine Besylate 2.5 mg 07/21/22 09:45 07/21/22 12:28 Amlodipine 2.5 Mg Tab PO 2.5 mg DAILY EDWARDO Administration Aspirin 81 mg 07/21/22 21:00 Aspirin 81 Mg PO HS EDWARDO Atorvastatin Calcium 80 mg 07/21/22 21:00 Atorvastatin 80 Mg Tab PO HS EDWARDO Heparin Sodium (Porcine) 5,000 unit 07/21/22 16:00 Heparin Sodium,Porcine/Pf 5,000 Unit/0.5 Ml Syringe SQ Q8HR EDWARDO Sodium Chloride 1,000 mls @ 100 mls/hr 07/20/22 22:45 07/21/22 08:44 Saline 0.9% IV 100 mls/hr .Q10H EDWARDO Administration Isosorbide Mononitrate 60 mg 07/21/22 09:45 07/21/22 12:28 Isosorbide Mononitrate Er 60 Mg Tab.Er.24h PO 60 mg BID EDWARDO Administration Lisinopril 20 mg 07/21/22 09:45 07/21/22 12:28 Lisinopril 20 Mg Tab PO 20 mg DAILY EDWARDO Administration Metoclopramide HCl 5 mg 07/21/22 12:30 07/21/22 12:28 Metoclopramide 5 Mg Tab PO 5 mg AC-TID EDWARDO Administration Metoprolol Tartrate 50 mg 07/21/22 09:45 07/21/22 12:28 Metoprolol Tartrate 50 Mg Tab PO 50 mg BID EDWARDO Administration Morphine Sulfate 4 mg 07/20/22 22:44 Morphine Sulfate 4 Mg/Ml Syringe IV Q5M PRN Chest Pain Nitroglycerin 0.4 mg 07/20/22 22:44 Nitroglycerin Sl Tabs 0.4 Mg Tab SUBLINGUAL Q5M PRN Chest Pain Ondansetron HCl 4 mg 07/21/22 09:26 Ondansetron 4 Mg/2 Ml Vial IVP Q6HR PRN Nausea And Vomiting Ranolazine 1,000 mg 07/21/22 09:45 07/21/22 12:28 Ranolazine 500 Mg Tab.Er.12h PO 1,000 mg BID EDWARDO Administration Intake and Output 07/20/22 07/21/22 07/21/22 22:59 06:59 14:59 Intake Total 76.333 Balance 76.333 Intake: Intake, IV Titration 76.333 Amount Heparin Sod,Pork in 0.45% 76.333 NaCl 25,000 unit In 0.45 % NaCl 1 250ml.bag @ 8. 1653 UNITS/KG/HR 10 mls/ hr IV .Q24H [facility] Rx#: [id number] Oral 0 Other: Voiding Method Toilet Toilet Urinal Urinal Weight 122.47 kg 122.47 kg 07/20/22 20:56 07/20/22 20:56
--- NOTE | 2022-07-21 13:07 | P.HPIM ---
History of Present Illness H&P Date: 07/21/22 HISTORY AND PHYSICAL AND DISCHARGE SUMMARY: HISTORY OF PRESENT ILLNESS: This is a 55-year-old gentleman patient of mc and Dr Jorgensen with history of CAD, CABG, previous CVA involving the occipital lobe,chronic tobacco use and cigar use, moderate alcohol consumption diabetes mellitus type 2, His cardiac history are as follows:coronary artery disease multiple procedure including bypass grafting 2008 which is HOPKINS to the LAD and saphenous vein graft to the diagonal 1 saphenous vein graft to the diagonal 2 and saphenous vein graft to the obtuse marginal and right coronary artery. His last heart catheterization was in November 2017 at which time circumflex had a 60-70% lesion with fractional flow reserve of that lesion to be ischemic at 0.80. Mid left circumflex normal, left circumflex distally normal. LAD with mild disease, right coronary artery chronically occluded at the proximal portion and fills with collaterals from the left coronary system. The saphenous vein graft to the first diagonal, saphenous vein graft to the second diagonal, saphenous vein graft to the obtuse marginal were all patent. HOPKINS to LAD was atrophic and occluded in the midportion. Patient underwent drug-eluting stent to the proximal left circumflex. Patient presented to the emergency department at [facility] today because of the nausea and vomiting is started on Monday. Patient states he took Ozempic on Monday as usual and felt fine on Monday by the evening of Monday he started vomiting. He is noted to have a loss of weight down from 290 pounds to 268 p ounds since he has been on Ozempic. He does have some abdominal tenderness no diarrhea. Patient has been seen by cardiology today is started on Reglan. He was able to eat his lunch today. Regarding chest pain, patient states the chest pain started after he had vomiting. None at this time. Patient is been seen by cardiology and cleared for discharge home. REVIEW OF SYSTEMS: Constitutional: No documented fever, no chills, no night sweats. No weight change. No weakness, fatigue or lethargy. No daytime sleepiness. EENT: No headache. No blurred vision or double vision, no loss of vision. No loss of Hearing, no ringing in the ears, no dizziness. No nasal drainage or congestion. No epistaxis. No sore throat. Lungs: No shortness of breath, no cough, no sputum production. No wheezing. Reports dyspnea with activity. Cardiovascular: No chest pain, no lower extremity edema. No palpitations. No paroxysmal nocturnal dyspnea. No orthopnea. No lightheadedness or dizziness. No syncopal episodes. Abdominal: Reports abdominal pain. Reports nausea, and vomiting. No diarrhea. No constipation. No bloody or tarry stools reports loss of appetite. Genitourinary: No dysuria, increased frequency, urgency. No urinary retention. Musculoskeletal: No myalgias. No muscle weakness, no gait dysfunction, no frequent falls. No back pain. No neck pain. Integumentary: No wounds, no lesions. No rash or pruritus. No unusual bruising. No change in hair or nails. Neurologic: No aphasia. No facial droop. No change in mentation. No head injury. No headache. No paralysis. No paresthesia. Psychiatric: No depression. No anxiety. No mood swings. Endocrine: No abnormal blood sugars. No weight change. PAST MEDICAL HISTORY: CAD post CABG X 5 HOPKINS to LAD, SVG to Dx1, Dx2, OM1, RCA Ischemic cardiomyopathy. Hypertension and hypertensive cardiovascular disease. Hyperlipidemia. Diabetes mellitus type 2. CVA involving the right occipital lobe Chronic tobacco use Chronic alcohol use obesity with obstructive sleep apnea. Hemorrhoids. PAST SURGICAL HISTORY: CABG 5 2008 Left heart [id number], 2019,2020 total of 7 stents placement Tonsillectomy and adenoidectomy. Umbilical hernia repair Cholecystectomy EGD and colonoscopy Hemorrhoid banding SOCIAL HISTORY: Patient smokes cigar once in a while, he denies any cigarette smoking, he still drinks occasionally, he denies any drug use or abuse. FAMILY HISTORY: Father at age 75 from coronary artery disease status post coronary artery bypass grafting also had a history of prostate cancer 1 cancer, mother at age 59 from brain aneurysm. PHYSICAL EXAMINATION: General: 56-year-old gentle is sitting up in bed in minimal distress per HEENT: Head is atraumatic, normocephalic, pupils were equal round reactive to light and recommendation, extraocular muscle movement were intact, sclera nonicteric, conjunctivae were pale, mucous membranes of the mouth are somewhat dry. Neck: Supple, no JVP, normal carotid upstroke bilaterally, no lymphadenopathy. Chest: Decreased breath sounds at the bases, few rhonchi, no expiratory wheezes, no chest wall tenderness, no intercostal retractions. Heart: First heart sound is normal, second heart sounds normal . There is systolic ejection murmur 2/6 located in the left sternal border. Abdomen: Soft, mild tenderness in the epigastric area, nondistended, positive bowel sounds. Extremities: There is no edema no calf tenderness DP +2 bilaterally. Neurologic examination: Patient is awake alert and oriented X 3, cranial nerves II-12 appear grossly intact, muscle power were 5 out of 5 in upper extremities and 5 out of 5 in bilateral lower extremities, deep tendon reflexes normal bilaterally. ASSESSMENT AND PLAN: 1. Chest pain likely noncardiac likely related to nausea and vomiting. 2. Nausea and vomiting possibly related to Ozempic which will be placed on hold until follow-up in the office. 3. CAD with prior bypass surgery and percutaneous coronary interventions. 4. COPD without exacerbation . 5. CKD stage II. 6. Ischemic cardiomyopathy with angina: With multiple coronary artery disease. We will continue patient on metoprolol 50 mg orally twice every day, lisinopril 20 mg orally once every day, Ranexa 1000 mg orally twice every day and Imdur 60 mg orally twice every day. 7. Hypertension and hypertensive cardiovascular disease. metoprolol 50 mg twice a day, lisinopril 20 mg daily, Norvasc 2.5 mg daily. 8. Hyperlipidemia. On atorvastatin 80 mg daily. 9. GERD. Protonix 40 mg daily. 10. Chronic tobacco use. Smoking cessation 11. Morbid obesity with BMI of 39.7 we will continue with diet and exercise and weight loss and total life style changes with risk factor modifications. Admitted as an observation. Patient is full code. Discharge medication list: Atorvastatin [Lipitor] 80 mg PO HS 06/25/13 [History] Metoprolol Tartrate [Lopressor] 50 mg PO BID 06/25/13 [History] Nitroglycerin Sl Tabs [Nitrostat] 0.4 mg SUBLINGUAL Q5M PRN 06/25/13 [History] Ranolazine [Ranexa] 1,000 mg PO BID 09/23/13 [History] Pantoprazole Sodium [Protonix] 40 mg PO DAILY 07/02/14 [History] Isosorbide Mononitrate ER [Imdur] 60 mg PO BID 10/13/15 [History] Aspirin [Adult Low Dose Aspirin EC] 81 mg PO HS 01/11/16 [History] amLODIPine [Norvasc] 2.5 mg PO DAILY 09/26/17 [History] metFORMIN HCL [Glucophage] 500 mg PO BID #0 11/27/17 [Rx] ALPRAZolam [Xanax] 0.25 mg PO DAILY PRN 04/11/20 [History] lisinopriL [Zestril] 20 mg PO DAILY 07/04/22 [History] Metoclopramide [Reglan] 5 mg PO AC-TID #90 tab 07/21/22 [Rx] Discharge plan: Return home Greater than 35 minutes was utilized and coordinating patient's discharge. Impression and plan of care have been directed as dictated by the signing physician. Karissa Moncada nurse practitioner acting as scribe for signing physician. 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 Last Myocardial Infarction Date:: 2020 History of Any Multi-Drug Resistant Organisms: None Reported Past Surgical History: Adenoidectomy, Cholecystectomy, Coronary Bypass/CABG, Heart Catheterization, Heart Catheterization With Stent, Hernia Repair Additional Past Surgical History / Comment(s): Several caths with last one done 11/26 total 7 stents (states placed 01/2011, and 03/2019. 2020), CABG 5 vessel in 2008 (stents came after open heart was done), EGD/colonoscopy, hemorrhoid banding, umbilical hernia repair Past Anesthesia/Blood Transfusion Reactions: Previous Problems w/ Anesthesia Additional Past Anesthesia/Blood Transfusion Reaction / Comment(s): stated "wakes up slower than normal" Date of Last Stent Placement:: 04/26 Past Psychological History: Anxiety, Depression Smoking Status: Former smoker, Vaper Past Alcohol Use History: None Reported Past Drug Use History: Marijuana - Past Family History Father Family Medical History: Cancer, Coronary Artery Disease (CAD) Additional Family Medical History / Comment(s): dad is 75. stents, bypass, prostate and lung cancer. Mother Additional Family Medical History / Comment(s): mom 1997 at age 59- brain aneurysm Medications and Allergies Home Medications Medication Instructions Recorded Confirmed Type Atorvastatin [Lipitor] 80 mg PO HS 06/25/13 07/20/22 History Metoprolol Tartrate [Lopressor] 50 mg PO BID 06/25/13 07/20/22 History Nitroglycerin Sl Tabs [Nitrostat] 0.4 mg SUBLINGUAL Q5M PRN 06/25/13 07/20/22 History Ranolazine [Ranexa] 1,000 mg PO BID 09/23/13 07/20/22 History Pantoprazole Sodium [Protonix] 40 mg PO DAILY 07/02/14 07/20/22 History Isosorbide Mononitrate ER [Imdur] 60 mg PO BID 10/13/15 07/20/22 History Aspirin [Adult Low Dose Aspirin EC] 81 mg PO HS 01/11/16 07/20/22 History amLODIPine [Norvasc] 2.5 mg PO DAILY 09/26/17 07/20/22 History metFORMIN HCL [Glucophage] 500 mg PO BID #0 11/27/17 07/20/22 Rx ALPRAZolam [Xanax] 0.25 mg PO DAILY PRN 04/11/20 07/20/22 History lisinopriL [Zestril] 20 mg PO DAILY 07/04/22 07/20/22 History Metoclopramide [Reglan] 5 mg PO AC-TID #90 tab 07/21/22 Rx Allergies Allergy/AdvReac Type Severity Reaction Status Date / Time chocolate flavor Allergy Rash/Hives Verified 07/20/22 21:50 [place] And Derivatives Allergy Rash/Hives Verified 07/20/22 21:50 [[place]] Physical Exam Vitals: Vital Signs Temp Pulse Pulse Resp BP BP Pulse Ox 07/21/22 08:27 93 L 07/21/22 08:00 98.3 F 81 16 153/76 96 07/21/22 03:02 73 16 120/80 96 07/21/22 01:12 73 07/21/22 00:17 97.8 F 86 18 111/79 96 07/21/22 00:07 97.8 F 86 18 111/79 95 07/20/22 23:48 85 16 127/98 95 07/20/22 22:24 89 19 124/91 94 L 07/20/22 21:11 97.6 F 07/20/22 20:44 92 18 114/97 96 FiO2 07/21/22 08:27 21 07/21/22 08:00 07/21/22 03:02 07/21/22 01:12 07/21/22 00:17 07/21/22 00:07 07/20/22 23:48 07/20/22 22:24 07/20/22 21:11 07/20/22 20:44 Intake and Output 07/20/22 07/21/22 07/21/22 22:59 06:59 14:59 Intake Total 76.333 Balance 76.333 Intake: Intake, IV Titration 76.333 Amount Heparin Sod,Pork in 0.45% 76.333 NaCl 25,000 unit In 0.45 % NaCl 1 250ml.bag @ 8. 1653 UNITS/KG/HR 10 mls/ hr IV .Q24H [facility] Rx#: [id number] Oral 0 Other: Voiding Method Toilet Toilet Urinal Urinal Weight 122.47 kg 122.47 kg Results CBC & Chem 7: 07/20/22 20:56 07/20/22 20:56 Labs: Abnormal Lab Results - Last 24 Hours (Table) 07/20/22 07/20/22 07/21/22 Range/Units 20:56 20:56 06:07 Hgb 12.5 L (13.0-17.5) gm/dL RDW 16.3 H (11.5-15.5) % Neutrophils # 7.9 H (1.3-7.7) k/uL APTT 32.4 H (22.0-30.0) sec Chloride 108 H (98-107) mmol/L Carbon Dioxide 21 L (22-30) mmol/L Glucose 100 H (74-99) mg/dL Thrombosis Risk Factor Assmnt - Choose All That Apply Any of the Below Risk Factors Present?: Yes Each Factor Represents 1 point: Acute RI, Age 41-60 years, Swollen legs (current) Other Risk Factors: No Other congenital or acquired thrombophilia - If yes, enter type in comment: No Thrombosis Risk Factor Assessment Total Risk Factor Score: 3 Thrombosis Risk Factor Assessment Level: Moderate Risk
[2022-07-21] MEDS ORDERED: HEPARIN SODIUM,PORCINE/PF 5,000 UNIT/0.5 ML SYRINGE SQ SCH (16:00)
[2022-07-21] MEDS ORDERED: ASPIRIN 81 MG PO SCH (21:00)
[2022-07-21] MEDS ORDERED: ATORVASTATIN 80 MG TAB PO SCH (21:00)
== END 2022-07-21 15:31 | disposition home or self-care (01) | DRG 392 ==
LOC: EC 20:35 → 3SCARD 22:44
PROVIDERS: ADMIT Internal Medicine; ATTEND Internal Medicine
DX: R11.2 Nausea with vomiting, unspecified (principal); T38.3X5A Adverse effect of insulin and oral hypoglycemic [antidiabetic] drugs, initial encounter; E11.22 Type 2 diabetes mellitus with diabetic chronic kidney disease; E11.40 Type 2 diabetes mellitus with diabetic neuropathy, unspecified; E66.01 Morbid (severe) obesity due to excess calories; J44.9 Chronic obstructive pulmonary disease, unspecified; N18.2 Chronic kidney disease, stage 2 (mild); I13.10 Hypertensive heart and chronic kidney disease without heart failure, with stage 1 through stage 4 chronic kidney disease, or unspecified chronic kidney disease; E78.5 Hyperlipidemia, unspecified; I25.119 Atherosclerotic heart disease of native coronary artery with unspecified angina pectoris; I25.5 Ischemic cardiomyopathy; G47.33 Obstructive sleep apnea (adult) (pediatric); H53.9 Unspecified visual disturbance; Z68.37 Body mass index [BMI] 37.0-37.9, adult; I25.2 Old myocardial infarction; K21.9 Gastro-esophageal reflux disease without esophagitis; F17.291 Nicotine dependence, other tobacco product, in remission; E55.9 Vitamin D deficiency, unspecified; F32.A Depression, unspecified; F41.9 Anxiety disorder, unspecified; M54.9 Dorsalgia, unspecified; Z79.82 Long term (current) use of aspirin; Z79.84 Long term (current) use of oral hypoglycemic drugs; Z79.85 Long-term (current) use of injectable non-insulin antidiabetic drugs; Z79.899 Other long term (current) drug therapy; Z95.1 Presence of aortocoronary bypass graft; Z71.6 Tobacco abuse counseling; Z95.5 Presence of coronary angioplasty implant and graft; Z87.442 Personal history of urinary calculi; Z91.018 Allergy to other foods; I69.398 Other sequelae of cerebral infarction
CPT/HCPCS: 36415; 80053; 80061; 82150; 83605; 83690; 84484; 85025; 85610; 85730; 93005; 93308; 94760; 96361; 96365; 96375; 96376; 99285

== ENCOUNTER → 2022-08-12 | Outpatient (CLI) | payer MEDICARE, OTHER ==
--- NOTE | 2022-08-12 10:04 | MR ---
EXAMINATION TYPE: MR Prostate wo/w con DATE OF EXAM: 08/12/2022 9:47 AM COMPARISON: CT 07/05/2022. CLINICAL INDICATION:Male, 56 years old with history of N40.2; TECHNIQUE: Multi-planar, multi-sequence imaging of the pelvis is performed prior to and following the uncomplicated administration of bolus intravenous gadolinium. CONTRAST: 12 cc Gadavist. Interpretive Criteria: PI-RADS v2.1 SERUM PSA: 1.4 on 07/01/2021 1.3 on 07/29/2022 SURGICAL PATHOLOGY: No data available. FINDINGS: Prostatic dimensions: 5.3 x 3.8 x 3.4 cm. "Bullet" Volume: 44.82 (PSA density=0.03 ng/mL/mL) CENTRAL GLAND (Central and Transition Zones/CZ+TZ): Multiple bilateral, heterogenous appearing hypertrophic stromal nodules, without suspicious lesion. M edian lobe hypertrophy with protrusion into the base of the bladder. (PI-RADS 2) PERIPHERAL ZONE (PZ): Bilateral linear, indistinct wedgelike areas of low ADC, and low T2 signal, No evidence of masslike a bnormality, or localized perfusional hypervascularity, to further suggest a focus of clinically signi ficant prostate cancer. (PI-RADS 2) SEMINAL VESICLES (SV): Symmetric and unremarkable. PERIPROSTATIC TISSUES: Unremarkable. LYMPH NODES: No enlarged pelvic lymph node. REMAINING PELVIS: Bladder wall is within normal limits given distention. No abnormal free or organized intrapelvic fluid collection. No pathologic bowel dilation or mural thickening. Scattered colonic diverticula. OSSEOUS STRUCTURES: No suspicious osseous abnormality. IMPRESSION: 1. No specific features for high-risk prostate cancer. Maximum PI-RADS score: 2. 2. Mild BPH, estimated gland volume 44.82 mL.
== END | disposition home or self-care (01) ==
LOC: RADMRIMAIN 08:23
PROVIDERS: ATTEND Internal Medicine
DX: N40.2 Nodular prostate without lower urinary tract symptoms (principal); N40.0 Benign prostatic hyperplasia without lower urinary tract symptoms
CPT/HCPCS: 72197; A9585

== ENCOUNTER 2023-01-18 17:12 | Observation (INO) | payer MEDICARE, OTHER ==
[2023-01-18] MEDS ORDERED: NITROGLYCERIN OINT 1 INCH/GM PACKET TOPICAL STA (17:46)
[2023-01-18] MEDS ORDERED: ASPIRIN 81 MG PO STA (17:48)
--- NOTE | 2023-01-18 18:11 | ED ---
General Adult HPI - General Chief complaint: Chest Pain Stated complaint: chest pain Time Seen by Provider: 01/18/23 17:20 Source: patient, EMS, RN notes reviewed, old records reviewed Mode of arrival: EMS - History of Present Illness Initial comments: This is a 49-year-old male who presents emergency Department with an extensive cardiac history and diabetes and hypertension. Patient states that he started having some vomiting earlier today but shortly thereafter started having significant chest pain that was reminiscent of his heart pain. Patient states she was mildly short of breath but the pain did not radiate anywhere. Patient states he took nitroglycerin did not help. Patient had aspirin in route to the hospital. Patient denies any fever chills or cough. Patient denies any abdominal pain patient denies any nausea currently dizzy did receive Zofran on the way in. - Related Data Home Medications Medication Instructions Recorded Confirmed Atorvastatin [Lipitor] 80 mg PO HS 06/25/13 01/18/23 Metoprolol Tartrate [Lopressor] 50 mg PO BID 06/25/13 01/18/23 Nitroglycerin Sl Tabs [Nitrostat] 0.4 mg SUBLINGUAL Q5M PRN 06/25/13 01/18/23 Ranolazine [Ranexa] 1,000 mg PO BID 09/23/13 01/18/23 Pantoprazole Sodium [Protonix] 40 mg PO DAILY 07/02/14 01/18/23 Isosorbide Mononitrate ER [Imdur] 60 mg PO BID 10/13/15 01/18/23 Aspirin [Adult Low Dose Aspirin EC] 81 mg PO HS 01/11/16 01/18/23 amLODIPine [Norvasc] 2.5 mg PO DAILY 09/26/17 01/18/23 ALPRAZolam [Xanax] 0.25 mg PO DAILY PRN 04/11/20 01/18/23 lisinopriL [Zestril] 20 mg PO DAILY 07/04/22 01/18/23 Semaglutide [Ozempic] 1 mg SQ TH 01/18/23 01/18/23 Previous Rx's Medication Instructions Recorded metFORMIN HCL [Glucophage] 500 mg PO BID #0 11/27/17 Allergies Allergy/AdvReac Type Severity Reaction Status Date / Time chocolate flavor Allergy Rash/Hives Verified 01/18/23 19:01 [place] And Derivatives Allergy Rash/Hives Verified 01/18/23 19:01 [[place]] Review of Systems ROS Statement: Those systems with pertinent positive or pertinent negative responses have been documented in the HPI. ROS Other: All systems not noted in ROS Statement are negative. 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 Last Myocardial Infarction Date:: 2020 History of Any Multi-Drug Resistant Organisms: None Reported Past Surgical History: Adenoidectomy, Cholecystectomy, Coronary Bypass/CABG, Heart Catheterization, Heart Catheterization With Stent, Hernia Repair Additional Past Surgical History / Comment(s): Several caths with last one done 11/26 total 7 stents (states placed 01/2011, and 03/2019. 2020), CABG 5 vessel in 2008 (stents came after open heart was done), EGD/colonoscopy, hemorrhoid banding, umbilical hernia repair Past Anesthesia/Blood Transfusion Reactions: Previous Problems w/ Anesthesia Additional Past Anesthesia/Blood Transfusion Reaction / Comment(s): stated "wakes up slower than normal" Date of Last Stent Placement:: 04/26 Past Psychological History: Anxiety, Depression Smoking Status: Former smoker, Vaper Past Alcohol Use History: None Reported Past Drug Use History: Marijuana - Past Family History Father Family Medical History: Cancer, Coronary Artery Disease (CAD) Additional Family Medical History / Comment(s): dad is 75. stents, bypass, prostate and lung cancer. Mother Additional Family Medical History / Comment(s): mom 1997 at age 59- brain aneurysm General Exam - General Exam Comments Initial Comments: GENERAL: Patient is well-developed and well-nourished. Patient is nontoxic and well- hydrated and is in mild distress. ENT: Neck is soft and supple. No significant lymphadenopathy is noted. Oropharynx is clear. Moist mucous membranes. Neck has full range of motion without eliciting any pain. EYES: The sclera were anicteric and conjunctiva were pink and moist. Extraocular movements were intact and pupils were equal round and reactive to light. Eyelids were unremarkable. PULMONARY: Unlabored respirations. Good breath sounds bilaterally. No audible rales rhonchi or wheezing was noted. CARDIOVASCULAR: There is a regular rate and rhythm without any murmurs gallops or rubs. ABDOMEN: Soft and nontender with normal bowel sounds. No palpable organomegaly was noted. There is no palpable pulsatile mass. SKIN: Skin is clear with no lesions or rashes and otherwise unremarkable. NEUROLOGIC: Patient is alert and oriented x3. Cranial nerves II through XII are grossly intact. Motor and sensory are also intact. Normal speech, volume and content. Symmetrical smile. MUSCULOSKELETAL: Normal extremities with adequate strength and full range of motion. No lower extremity swelling or edema. No calf tenderness. LYMPHATICS: No significant lymphadenopathy is noted PSYCHIATRIC: Normal psychiatric evaluation. Course Vital Signs 01/18/23 17:20 Pulse Rate 95 Respiratory 18 Rate Blood Pressure 122/85 O2 Sat by Pulse 96 Oximetry Medical Decision Making - Medical Decision Making EKG was interpreted by myself. EKG shows a sinus rhythm at 92 bpm WV interval 290 QRS 105 QT interval 374 QTC is 424. Patient EKGs shows T-wave inversions in 1 and aVL which was seen in previous EKGs. Was pt. sent in by a medical professional or institution (, PA, ASSESSMENT MANAGER, urgent care, hospital, or usp...) When possible be specific @ -No Did you speak to anyone other than the patient for history (EMS, parent, family, police, friend...)? What history was obtained from this source @ -No Did you review nursing and triage notes (agree or disagree)? Why? @ -I reviewed and agree with nursing and triage notes Were old charts reviewed (outside hosp., previous admission, EMS record, old EKG, old radiological studies, urgent care reports/EKG's, usp records)? Report findings @ -I reviewed prior charts from prior lab work on this patient Differential Diagnosis (chest pain, altered mental status, abdominal pain women, abdominal pain men, vaginal bleeding, weakness, fever, dyspnea, syncope, headache, dizziness, GI bleed, back pain, seizure, CVA, palpatations, mental health, musculoskeletal)? @ -Differential Chest Pain: Stable Angina, Unstable Angina, STEMI, NSTEMI Aortic Dissection, Pneumothorax, Musculoskeletal, Esophageal Spasm GERD, Cholecystitis, Pancreatitis, Zoster, this is not meant to be an all-inclusive list. EKG interpreted by me (3pts min.). @ -As above X-rays interpreted by me (1pt min.). @ -Chest x-ray shows no acute abnormality CT interpreted by me (1pt min.). @ -None done U/S interpreted by me (1pt. min.). @ -None done What testing was considered but not performed or refused? (CT, X-rays, U/S, labs)? Why? @ -None What meds were considered but not given or refused? Why? @ -None Did you discuss the management of the patient with other professionals (professionals i.e. , PA, ASSESSMENT MANAGER, lab, RT, psych nurse, neonatal social worker, palliative care nurse, teacher, public records officer, onsite case manager)? Give summary @ -[place] Dr. Hernández he agreed to admit the patient admitted the patient wrote admitting orders Was smoking cessation discussed for >3mins.? @ -No Was critical care preformed (if so, how long)? @ -No Were there social determinants of health that impacted care today? How? (Homelessness, low income, unemployed, alcoholism, drug addiction, transportation, low edu. Level, literacy, decrease access to med. care, group home, r ehab)? @ -No Was there de-escalation of care discussed even if they declined (Discuss DNR or withdrawal of care, Hospice)? DNR status @ -No What co-morbidities impacted this encounter? (DM, HTN, Smoking, COPD, CAD, Cancer, CVA, ARF, Chemo, Hep., AIDS, mental health diagnosis, sleep apnea, morbid obesity)? @ -None Was patient admitted / discharged? Hospital course, mention meds given and route, prescriptions, significant lab abnormalities, going to OR and other pertinent info. @ -Patient's chest pain improved with the Nitropaste. Patient lab work was normal chest x-ray was normal I spoke with Dr. Hernández he agreed to admit the patient admitted the patient I wrote admitting orders Undiagnosed new problem with uncertain prognosis? @ -No Drug Therapy requiring intensive monitoring for toxicity (Heparin, Nitro, Insulin, Cardizem)? @ -No Were any procedures done? @ -No Diagnosis/symptom? @ -Chest pain Acute, or Chronic, or Acute on Chronic? @ -Acute Uncomplicated (without systemic symptoms) or Complicated (systemic symptoms)? @ -Complicated Side effects of treatment? @ -No Exacerbation, Progression, or Severe Exacerbation? @ -No Poses a threat to life or bodily function? How? (Chest pain, [place], [place], pneumonia, PE, COPD, DKA, ARF, appy, cholecystitis, CVA, Diverticulitis, Homicidal, Suicidal, threat to staff... and all critical care pts) @ -Yes this can lead to an [place] and potential end organ dysfunction - Lab Data Result diagrams: 01/18/23 18:43 01/18/23 18:43 Lab Results 01/18/23 01/18/23 01/18/23 Range/Units 18:43 18:43 18:43 WBC 12.6 H (3.8-10.6) k/uL RBC 4.76 (4.30-5.90) m/uL Hgb 13.5 (13.0-17.5) gm/dL Hct 41.3 (39.0-53.0) % MCV 86.6 (80.0-100.0) fL MCH 28.2 (25.0-35.0) pg MCHC 32.6 (31.0-37.0) g/dL RDW 16.2 H (11.5-15.5) % Plt Count 271 (150-450) k/uL MPV 8.8 Neutrophils % 85 % Lymphocytes % 9 % Monocytes % 5 % Eosinophils % 0 % Basophils % 0 % Neutrophils # 10.6 H (1.3-7.7) k/uL Lymphocytes # 1.1 (1.0-4.8) k/uL Monocytes # 0.6 (0-1.0) k/uL Eosinophils # 0.0 (0-0.7) k/uL Basophils # 0.0 (0-0.2) k/uL Hypochromasia Moderate Anisocytosis Slight PT 10.1 (10.0-12.5) sec INR 0.9 (<1.2) APTT 22.1 (22.0-30.0) sec Sodium 141 (137-145) mmol/L Potassium 4.3 (3.5-5.1) mmol/L Chloride 108 H (98-107) mmol/L Carbon Dioxide 21 L (22-30) mmol/L Anion Gap 12 mmol/L BUN 16 (9-20) mg/dL Creatinine 1.16 (0.66-1.25) mg/dL Est GFR (CKD-EPI)AfAm 82 (>60 ml/min/1.73 sqM) Est GFR (CKD-EPI)NonAf 71 (>60 ml/min/1.73 sqM) Glucose 105 H (74-99) mg/dL Calcium 9.2 (8.4-10.2) mg/dL Magnesium 1.5 L (1.6-2.3) mg/dL Total Bilirubin 0.8 (0.2-1.3) mg/dL AST 26 (17-59) U/L ALT 31 (4-49) U/L Alkaline Phosphatase 87 (38-126) U/L Troponin I (0.000-0.034) ng/mL Total Protein 7.1 (6.3-8.2) g/dL Albumin 4.3 (3.5-5.0) g/dL 01/18/23 Range/Units 18:43 WBC (3.8-10.6) k/uL RBC (4.30-5.90) m/uL Hgb (13.0-17.5) gm/dL Hct (39.0-53.0) % MCV (80.0-100.0) fL MCH (25.0-35.0) pg MCHC (31.0-37.0) g/dL RDW (11.5-15.5) % Plt Count (150-450) k/uL MPV Neutrophils % % Lymphocytes % % Monocytes % % Eosinophils % % Basophils % % Neutrophils # (1.3-7.7) k/uL Lymphocytes # (1.0-4.8) k/uL Monocytes # (0-1.0) k/uL Eosinophils # (0-0.7) k/uL Basophils # (0-0.2) k/uL Hypochromasia Anisocytosis PT (10.0-12.5) sec INR (<1.2) APTT (22.0-30.0) sec Sodium (137-145) mmol/L Potassium (3.5-5.1) mmol/L Chloride (98-107) mmol/L Carbon Dioxide (22-30) mmol/L Anion Gap mmol/L BUN (9-20) mg/dL Creatinine (0.66-1.25) mg/dL Est GFR (CKD-EPI)AfAm (>60 ml/min/1.73 sqM) Est GFR (CKD-EPI)NonAf (>60 ml/min/1.73 sqM) Glucose (74-99) mg/dL Calcium (8.4-10.2) mg/dL Magnesium (1.6-2.3) mg/dL Total Bilirubin (0.2-1.3) mg/dL AST (17-59) U/L ALT (4-49) U/L Alkaline Phosphatase (38-126) U/L Troponin I <0.012 (0.000-0.034) ng/mL Total Protein (6.3-8.2) g/dL Albumin (3.5-5.0) g/dL Disposition Clinical Impression: Chest pain Disposition: ADMITTED IP TO THIS HOSP Referrals: Sharron Hernández MD [Primary Care Provider] - 1-2 days Time of Disposition: 19:57
--- NOTE | 2023-01-18 18:51 | XR ---
EXAMINATION TYPE: XR chest 2V DATE OF EXAM: 01/18/2023 COMPARISON: 07/04/2022 INDICATION: Chest pain TECHNIQUE: Frontal and lateral views of the chest are obtained. FINDINGS: The heart size is normal. The pulmonary vasculature is normal. The lungs are clear. IMPRESSION: 1. No acute pulmonary process.
[2023-01-18 19:28] LABS: ALT 31 U/L (4-49); AST 26 U/L (17-59); African American GFR (CKD) 82 (>60 ml/min/1.73 sqM); Albumin 4.3 g/dL (3.5-5.0); Alkaline Phosphatase 87 U/L (38-126); Anion Gap 12 mmol/L; Anisocytosis Slight; Basophils % (A) 0 %; Blood Urea Nitrogen 16 mg/dL (9-20); Calcium 9.2 mg/dL (8.4-10.2); Carbon Dioxide 21 mmol/L (22-30); Chloride 108 mmol/L (98-107); Eosinophils % (A) 0 %; Glucose 105 mg/dL (74-99); HCT 41.3 % (39.0-53.0); HGB 13.5 gm/dL (13.0-17.5); Hypochromasia Moderate; Lymphocytes # (A) 1.1 k/uL (1.0-4.8); Lymphocytes % (A) 9 %; MCH 28.2 pg (25.0-35.0); MCHC 32.6 g/dL (31.0-37.0); MCV 86.6 fL (80.0-100.0); Magnesium 1.5 mg/dL (1.6-2.3); Mean Platelet Volume 8.8; Monocytes # (A) 0.6 k/uL (0-1.0); Monocytes % (A) 5 %; Neutrophils # (A) 10.6 k/uL (1.3-7.7); Neutrophils % (A) 85 %; Non-African American GFR(CKD) 71 (>60 ml/min/1.73 sqM); Platelet Count 271 k/uL (150-450); Potassium 4.3 mmol/L (3.5-5.1); RBC 4.76 m/uL (4.30-5.90); RDW 16.2 % (11.5-15.5); Sodium 141 mmol/L (137-145); Total Bilirubin 0.8 mg/dL (0.2-1.3); Total Protein 7.1 g/dL (6.3-8.2); WBC 12.6 k/uL (3.8-10.6)
[2023-01-18 19:45] LABS: INR 0.9 (<1.2); Partial Thromboplastin Time 22.1 sec (22.0-30.0); Prothrombin Time 10.1 sec (10.0-12.5)
[2023-01-18] MEDS ORDERED: MAGNESIUM SULFATE-D5W PMX 1 GM in DEXTROSE/WATER 1 100ML.BAG IVPB ONE (19:53)
[2023-01-18] MEDS ORDERED: NITROGLYCERIN SL TABS 0.4 MG TAB SUBLINGUAL PRN (19:57)
[2023-01-19] MEDS: NITROGLYCERIN OINT 1 INCH/GM PACKET TOPICAL SCH ×2 (00:19→06:16)
[2023-01-19 06:04] LABS: Glucose,Whole Blood 92 mg/dL (70-110)
[2023-01-19] MEDS ORDERED: ASPIRIN 325 MG TAB PO SCH (09:00)
[2023-01-19] MEDS ORDERED: RANOLAZINE 500 MG TAB.ER.12H PO SCH (09:00)
[2023-01-19] MEDS ORDERED: ISOSORBIDE MONONITRATE ER 60 MG TAB.ER.24H PO SCH (09:00)
[2023-01-19] MEDS ORDERED: lisinopriL 20 MG TAB PO SCH ×2 (09:00→21:00)
[2023-01-19] MEDS ORDERED: amLODIPine 2.5 MG TAB PO SCH (09:00)
[2023-01-19] MEDS ORDERED: AMINOPHYLLINE 500 MG/20 ML VIAL IV PRN (11:03)
[2023-01-19] MEDS ORDERED: REGADENOSON 0.4 MG/5 ML SYRINGE IV PRN (11:03)
[2023-01-19] MEDS ORDERED: CAFFEINE CITRATE 60 MG/3 ML VIAL IV PRN (11:03)
[2023-01-19 11:04] LABS: Glucose,Whole Blood 92 mg/dL (70-110)
--- NOTE | 2023-01-19 11:13 | P.CRDCN ---
History of Present Illness History of present illness: HISTORY OF PRESENT ILLNESS: This is a 57-year-old male with a past medical history significant for coronary artery disease with previous CABG and stenting, hypertension, hyperlipidemia, and former nicotine dependence. Patient follows in the office with Dr. Jorgensen. Harleen e have been asked to see the patient in consultation for chest pain. Patient examined at the bedside. Patient presented to the ER with a chief complaint of throwing up. He reports chest pain in the middle of his chest that feels like someone is sitting on his chest. He does report having some nausea as well. He currently denies shortness of breath. He reports mild discomfort this morning. EKG was obtained without any acute changes. Repeat troponin was also negative. * EKG reveals sinus mechanism with T-wave inversions in high lateral leads and minimal ST elevation in lead 3 and aVF * Chest xray Negative for acute process * Laboratory data: WBC 12.6. Troponin negative 3 * Current home cardiac medications include aspirin 81 mg at night, atorvastatin 80 mg at night, Imdur 60 mg twice a day, metoprolol tartrate 50 mg twice a day, Ranexa 1000 mg twice a day, amlodipine 2.5 mg daily, and lisinopril 20 mg daily * Most recent echocardiogram obtained in July 2022 revealing ejection fraction 50-55% with no segmental wall motion abnormalities * Cardiac catheterization history: April 2020 with stenting of the proximal circumflex REVIEW OF SYSTEMS: At the time of my exam: CONSTITUTIONAL: Denies fever or chills. HEENT: Denies blurred vision, vision changes, or eye pain. Denies hemoptysis CARDIOVASCULAR: Denies chest pain. Denies orthopnea. Denies PND. Denies palpitations RESPIRATORY: Denies shortness of breath. GASTROINTESTINAL: Denies abdominal pain. Denies nausea or vomiting. HEMATOLOGIC: Denies bleeding disorders. GENITOURINARY: Denies any blood in urine. SKIN: Denies pruitis. Denies rash. PHYSICAL EXAM: VITAL SIGNS: Reviewed. GENERAL: Well-developed in no acute distress. HEENT: Head is normocephalic. Pupils are equal, round. Sclerae anicteric. Mucous membranes of the mouth are moist. Neck supple. No JVD or thyromegaly LUNGS: Respirations even and unlabored. Lungs essentially clear to auscultation bilaterally. HEART: Regular rate and rhythm. S1 and S2 heard. ABDOMEN: Soft. Nondistended. Nontender. EXTREMITIES: Normal range of motion. No clubbing or cyanosis. Peripheral pulses intact. No lower extremity edema NEUROLOGIC: Awake and alert. Oriented x 3. ASSESSMENT: Chest pain Coronary artery disease with four-vessel CABG in 2008 and subsequent stenting Hypertension Hyperlipidemia Diabetes Former nicotine dependence PLAN: An acute coronary has been ruled out Obtain 2-D echo to assess cardiac structure and function Resume home cardiac medications Patient to undergo Lexiscan stress test today Further recommendations pending patient's course Nurse practitioner note has been reviewed by physician. Signing provider agrees with the documented findings, assessment, and plan of care. 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 Last Myocardial Infarction Date:: 2020 History of Any Multi-Drug Resistant Organisms: None Reported Past Surgical History: Adenoidectomy, Cholecystectomy, Coronary Bypass/CABG, Heart Catheterization, Heart Catheterization With Stent, Hernia Repair Additional Past Surgical History / Comment(s): Several caths with last one done 11/26 total 7 stents (stents placed 01/2011, and 03/2019. 2020), CABG 5 vessel in 2008 (stents came after open heart was done), EGD/colonoscopy, hemorrhoid banding, umbilical hernia repair Past Anesthesia/Blood Transfusion Reactions: Previous Problems w/ Anesthesia Additional Past Anesthesia/Blood Transfusion Reaction / Comment(s): stated "wakes up slower than normal" Date of Last Stent Placement:: 04/26 Past Psychological History: Anxiety, Depression Additional Psychological History / Comment(s): Pt states he has no current mental health disease. He states he had suicidal thoughts yrs ago at age 43, immediately following CABG in 2008 due to drastic lifestyle changes and being told he could no longer work. Patient currently lives with brother and niece. lives with brother and neice, does not work Smoking Status: Former smoker, Vaper Past Alcohol Use History: None Reported Additional Past Alcohol Use History / Comment(s): started smoking age 15 never more than 1/2 ppd and later in life took up cigars (one per month at most). Past Drug Use History: Marijuana Additional Drug Use History / Comment(s): as teenager into 20's occ, "seldom marijuana". stopped vaping Dec 2021, smokes 1 cigar monthly - Past Family History Father Family Medical History: Cancer, Coronary Artery Disease (CAD) Additional Family Medical History / Comment(s): dad is 75. stents, bypass, prostate and lung cancer. Mother Additional Family Medical History / Comment(s): mom 1997 at age 59- brain aneurysm Medications and Allergies Home Medications Medication Instructions Recorded Confirmed Type Atorvastatin [Lipitor] 80 mg PO HS 06/25/13 01/18/23 History Metoprolol Tartrate [Lopressor] 50 mg PO BID 06/25/13 01/18/23 History Nitroglycerin Sl Tabs [Nitrostat] 0.4 mg SUBLINGUAL Q5M PRN 06/25/13 01/18/23 History Ranolazine [Ranexa] 1,000 mg PO BID 09/23/13 01/18/23 History Pantoprazole Sodium [Protonix] 40 mg PO DAILY 07/02/14 01/18/23 History Isosorbide Mononitrate ER [Imdur] 60 mg PO BID 10/13/15 01/18/23 History Aspirin [Adult Low Dose Aspirin EC] 81 mg PO HS 01/11/16 01/18/23 History amLODIPine [Norvasc] 2.5 mg PO DAILY 09/26/17 01/18/23 History metFORMIN HCL [Glucophage] 500 mg PO BID #0 11/27/17 01/18/23 Rx ALPRAZolam [Xanax] 0.25 mg PO DAILY PRN 04/11/20 01/18/23 History lisinopriL [Zestril] 20 mg PO DAILY 07/04/22 01/18/23 History Semaglutide [Ozempic] 1 mg SQ TH 01/18/23 01/18/23 History Allergies Allergy/AdvReac Type Severity Reaction Status Date / Time chocolate flavor Allergy Rash/Hives Verified 01/18/23 19:01 [place] And Derivatives Allergy Rash/Hives Verified 01/18/23 19:01 [[place]] Physical Exam Vitals: Vital Signs Temp Pulse Pulse Resp BP BP Pulse Ox 01/19/23 04:00 97.8 F 78 16 109/68 97 01/19/23 02:00 84 16 01/19/23 00:00 97.6 F 84 16 130/88 99 01/18/23 21:20 97.6 F 98 18 122/87 98 01/18/23 20:58 90 16 125/91 97 01/18/23 20:32 97.6 F 87 18 122/87 98 01/18/23 17:20 95 18 122/85 96 Intake and Output 01/18/23 01/19/23 01/19/23 22:59 06:59 14:59 Intake Total 100 Balance 100 Intake: Oral 100 Other: # Voids 2 Weight 115.666 kg Results 01/18/23 18:43 01/18/23 18:43 Cardiac Enzymes 01/18/23 01/18/23 01/18/23 Range/Units 18:43 18:43 21:29 AST 26 (17-59) U/L Troponin I <0.012 <0.012 (0.000-0.034) ng/mL Coagulation 01/18/23 Range/Units 18:43 PT 10.1 (10.0-12.5) sec APTT 22.1 (22.0-30.0) sec CBC 01/18/23 Range/Units 18:43 WBC 12.6 H (3.8-10.6) k/uL RBC 4.76 (4.30-5.90) m/uL Hgb 13.5 (13.0-17.5) gm/dL Hct 41.3 (39.0-53.0) % Plt Count 271 (150-450) k/uL Comprehensive Metabolic Panel 01/18/23 Range/Units 18:43 Sodium 141 (137-145) mmol/L Potassium 4.3 (3.5-5.1) mmol/L Chloride 108 H (98-107) mmol/L Carbon Dioxide 21 L (22-30) mmol/L BUN 16 (9-20) mg/dL Creatinine 1.16 (0.66-1.25) mg/dL Glucose 105 H (74-99) mg/dL Calcium 9.2 (8.4-10.2) mg/dL AST 26 (17-59) U/L ALT 31 (4-49) U/L Alkaline Phosphatase 87 (38-126) U/L Total Protein 7.1 (6.3-8.2) g/dL Albumin 4.3 (3.5-5.0) g/dL Current Medications Generic Name Dose Route Start Last Admin Trade Name Freq PRN Reason Stop Dose Admin Aspirin 325 mg 01/19/23 09:00 01/19/23 06:16 Aspirin 325 Mg Tab PO 325 mg DAILY EDWARDO Administration Nitroglycerin 0.4 mg 01/18/23 19:57 Nitroglycerin Sl Tabs 0.4 Mg Tab SUBLINGUAL Q5M PRN Chest Pain Nitroglycerin 1 inch 01/19/23 00:00 01/19/23 06:16 Nitroglycerin Oint 1 Inch/Gm Packet TOPICAL 1 inch Q6HR EDWARDO Administration Intake and Output 01/18/23 01/19/23 01/19/23 22:59 06:59 14:59 Intake Total 100 Balance 100 Intake: Oral 100 Other: # Voids 2 Weight 115.666 kg 01/18/23 18:43 01/18/23 18:43
[2023-01-19 12:36] VITALS: BP 107/68; PULSE 69; RESP 16; TEMP 98.2
--- NOTE | 2023-01-19 14:20 | P.HPIM ---
History of Present Illness H&P Date: 01/19/23 HISTORY AND PHYSICAL AND DISCHARGE SUMMARY: HISTORY OF PRESENT ILLNESS: This is a 57-year-old gentleman patient of mc and Dr Jorgensen with history of CAD, CABG and stenting, previous CVA involving the occipital lobe,chronic tobacco use and cigar use, moderate alcohol consumption, diabetes mellitus type 2, His cardiac history are as follows:coronary artery disease multiple procedure including bypass grafting 2008 which is HOPKINS to the LAD and saphenous vein graft to the diagonal 1 saphenous vein graft to the diagonal 2 and saphenous vein graft to the obtuse marginal and right coronary artery. His last heart catheterization was in November 2017 at which time circumflex had a 60-70% lesion with fractional flow reserve of that lesion to be ischemic at 0.80. Mid left circumflex normal, left circumflex distally normal. LAD with mild disease, right coronary artery chronically occluded at the proximal portion and fills with collaterals from the left coronary system. The saphenous vein graft to the first diagonal, saphenous vein graft to the second diagonal, saphenous vein graft to the obtuse marginal were all patent. HOPKINS to LAD was atrophic and occluded in the midportion. Patient underwent drug-eluting stent to the proximal left circumflex. Patient [facility] at [facility] due to vomitingarea patient states that he started with vomiting and abdominal pain and then moved into chest pain in the middle of his chest. Patient has been seen by cardiology and scheduled for Lexiscan stress test today. EKG sinus rhythm with T-wave inversions minimal ST elevation in lead 3 and aVF. Chest x-ray is negative for any acute process. WBC 12.6, troponins negative 3.Lexiscan stress test came back negative and patient will be discharged home today in stable condition. REVIEW OF SYSTEMS: Constitutional: No documented fever, no chills, no night sweats. No weight change. No weakness, fatigue or lethargy. No daytime sleepiness. EENT: No headache. No blurred vision or double vision, no loss of vision. No loss of Hearing, no ringing in the ears, no dizziness. No nasal drainage or congestion. No epistaxis. No sore throat. Lungs: No shortness of breath, no cough, no sputum production. No wheezing. Reports dyspnea with activity. Cardiovascular: No chest pain, no lower extremity edema. No palpitations. No paroxysmal nocturnal dyspnea. No orthopnea. No lightheadedness or dizziness. No syncopal episodes. Abdominal: Reports no abdominal pain. Reports nausea, and vomiting. No diarrhea. No constipation. No bloody or tarry stools reports loss of appetite. Genitourinary: No dysuria, increased frequency, urgency. No urinary retention. Musculoskeletal: No myalgias. No muscle weakness, no gait dysfunction, no frequent falls. No back pain. No neck pain. Integumentary: No wounds, no lesions. No rash or pruritus. No unusual bruising. No change in hair or nails. Neurologic: No aphasia. No facial droop. No change in mentation. No head injury. No headache. No paralysis. No paresthesia. Psychiatric: No depression. No anxiety. No mood swings. Endocrine: No abnormal blood sugars. No weight change. PAST MEDICAL HISTORY: CAD post CABG X 5 HOPKINS to LAD, SVG to Dx1, Dx2, OM1, RCA Ischemic cardiomyopathy. Hypertension and hypertensive cardiovascular disease. Hyperlipidemia. Diabetes mellitus type 2. CVA involving the right occipital lobe Chronic tobacco use Chronic alcohol use obesity with obstructive sleep apnea. Hemorrhoids. PAST SURGICAL HISTORY: CABG 5 2008 Left heart [id number], 2019,2020 total of 7 stents placement Tonsillectomy and adenoidectomy. Umbilical hernia repair Cholecystectomy EGD and colonoscopy Hemorrhoid banding SOCIAL HISTORY: Patient smokes cigar once in a while, he denies any cigarette smoking, he still drinks occasionally, he denies any drug use or abuse. FAMILY HISTORY: Father at age 75 from coronary artery disease status post coronary artery bypass grafting also had a history of prostate cancer 1 cancer, mother at age 59 from brain aneurysm. PHYSICAL EXAMINATION: General: 57-year-old male sitting up in bed in no acute distress. HEENT: Head is atraumatic, normocephalic, pupils were equal round reactive to light and recommendation, extraocular muscle movement were intact, sclera nonicteric, conjunctivae were pale, mucous membranes of the mouth are somewhat dry. Neck: Supple, no JVP, normal carotid upstroke bilaterally, no lymphadenopathy. Chest: Decreased breath sounds at the bases, few rhonchi, no expiratory wheezes, no chest wall tenderness, no intercostal retractions. Heart: First heart sound is normal, second heart sounds normal . There is systolic ejection murmur 2/6 located in the left sternal border. Abdomen: Soft, mild tenderness in the epigastric area, nondistended, positive bowel sounds. Extremities: There is no edema no calf tenderness DP +2 bilaterally. Neurologic examination: Patient is awake alert and oriented X 3, cranial nerves II-12 appear grossly intact, muscle power were 5 out of 5 in upper extremities and 5 out of 5 in bilateral lower extremities, deep tendon reflexes normal bilaterally. ASSESSMENT AND PLAN: 1. Chest pain likely noncardiac likely related to nausea and vomiting. 2. Nausea and vomiting possibly related to Ozempic. 3. CAD with prior bypass surgery and percutaneous coronary interventions. 4. COPD without exacerbation . 5. CKD stage II. 6. Ischemic cardiomyopathy with angina: With multiple coronary artery disease. We will continue patient on metoprolol 50 mg orally twice every day, lisinopril 20 mg orally once every day, Ranexa 1000 mg orally twice every day and Imdur 60 mg orally twice every day. 7. Hypertension and hypertensive cardiovascular disease. metoprolol 50 mg twice a day, lisinopril 20 mg daily, Norvasc 2.5 mg daily. 8. Hyperlipidemia. On atorvastatin 80 mg daily. 9. GERD. Protonix 40 mg daily. 10. Chronic tobacco use. Smoking cessation 11. Morbid obesity with BMI of 39.7 we will continue with diet and exercise and weight loss and total life style changes with risk factor modifications. patient be discharged home on same medications. Impression and plan of care have been directed as dictated by the signing physician. Karissa Moncada nurse practitioner acting as scribe for signing physician. 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 Last Myocardial Infarction Date:: 2020 History of Any Multi-Drug Resistant Organisms: None Reported Past Surgical History: Adenoidectomy, Cholecystectomy, Coronary Bypass/CABG, Heart Catheterization, Heart Catheterization With Stent, Hernia Repair Additional Past Surgical History / Comment(s): Several caths with last one done 11/26 total 7 stents (stents placed 01/2011, and 03/2019. 2020), CABG 5 vessel in 2008 (stents came after open heart was done), EGD/colonoscopy, hemorrhoid banding, umbilical hernia repair Past Anesthesia/Blood Transfusion Reactions: Previous Problems w/ Anesthesia Additional Past Anesthesia/Blood Transfusion Reaction / Comment(s): stated "wakes up slower than normal" Date of Last Stent Placement:: 04/26 Past Psychological History: Anxiety, Depression Additional Psychological History / Comment(s): Pt states he has no current mental health disease. He states he had suicidal thoughts yrs ago at age 43, immediately following CABG in 2008 due to drastic lifestyle changes and being told he could no longer work. Patient currently lives with brother and niece. lives with brother and neice, does not work Smoking Status: Former smoker, Vaper Past Alcohol Use History: None Reported Additional Past Alcohol Use History / Comment(s): started smoking age 15 never more than 1/2 ppd and later in life took up cigars (one per month at most). Past Drug Use History: Marijuana Additional Drug Use History / Comment(s): as teenager into 20s [facility], "seldom marijuana". stopped vaping Dec 2021, smokes 1 cigar monthly - Past Family History Father Family Medical History: Cancer, Coronary Artery Disease (CAD) Additional Family Medical History / Comment(s): dad is 75. stents, bypass, prostate and lung cancer. Mother Additional Family Medical History / Comment(s): mom 1997 at age 59- brain aneurysm Medications and Allergies Home Medications Medication Instructions Recorded Confirmed Type Atorvastatin [Lipitor] 80 mg PO HS 06/25/13 01/18/23 History Metoprolol Tartrate [Lopressor] 50 mg PO BID 06/25/13 01/18/23 History Nitroglycerin Sl Tabs [Nitrostat] 0.4 mg SUBLINGUAL Q5M PRN 06/25/13 01/18/23 History Ranolazine [Ranexa] 1,000 mg PO BID 09/23/13 01/18/23 History Pantoprazole Sodium [Protonix] 40 mg PO DAILY 07/02/14 01/18/23 History Isosorbide Mononitrate ER [Imdur] 60 mg PO BID 10/13/15 01/18/23 History Aspirin [Adult Low Dose Aspirin EC] 81 mg PO HS 01/11/16 01/18/23 History amLODIPine [Norvasc] 2.5 mg PO DAILY 09/26/17 01/18/23 History metFORMIN HCL [Glucophage] 500 mg PO BID #0 11/27/17 01/18/23 Rx ALPRAZolam [Xanax] 0.25 mg PO DAILY PRN 04/11/20 01/18/23 History lisinopriL [Zestril] 20 mg PO DAILY 07/04/22 01/18/23 History Semaglutide [Ozempic] 1 mg SQ TH 01/18/23 01/18/23 History Allergies Allergy/AdvReac Type Severity Reaction Status Date / Time chocolate flavor Allergy Rash/Hives Verified 01/18/23 19:01 [place]in And Derivatives Allergy Rash/Hives Verified 01/18/23 19:01 [Mac[place]in] Physical Exam Vitals: Vital Signs Temp Pulse Pulse Resp BP BP Pulse Ox 01/19/23 08:28 98.1 F 78 17 111/73 96 01/19/23 07:49 98 01/19/23 04:00 97.8 F 78 16 109/68 97 01/19/23 02:00 84 16 01/19/23 00:00 97.6 F 84 16 130/88 99 01/18/23 21:20 97.6 F 98 18 122/87 98 01/18/23 20:58 90 16 125/91 97 01/18/23 20:32 97.6 F 87 18 122/87 98 01/18/23 17:20 95 18 122/85 96 Intake and Output 01/18/23 01/19/23 01/19/23 22:59 06:59 14:59 Intake Total 100 Balance 100 Intake: Oral 100 Other: Voiding Method Toilet # Voids 2 Weight 115.666 kg Results CBC & Chem 7: 01/18/23 18:43 01/18/23 18:43 Labs: Abnormal Lab Results - Last 24 Hours (Table) 01/18/23 01/18/23 Range/Units 18:43 18:43 WBC 12.6 H (3.8-10.6) k/uL RDW 16.2 H (11.5-15.5) % Neutrophils # 10.6 H (1.3-7.7) k/uL Chloride 108 H (98-107) mmol/L Carbon Dioxide 21 L (22-30) mmol/L Glucose 105 H (74-99) mg/dL Magnesium 1.5 L (1.6-2.3) mg/dL Thrombosis Risk Factor Assmnt - Choose All That Apply Any of the Below Risk Factors Present?: Yes Each Factor Represents 1 point: Age 41-60 years Other Risk Factors: No Other congenital or acquired thrombophilia - If yes, enter type in comment: No Thrombosis Risk Factor Assessment Total Risk Factor Score: 1 Thrombosis Risk Factor Assessment Level: Low Risk
--- NOTE | 2023-01-19 14:29 | NM ---
EXAMINATION TYPE: NM stress lexiscan cardiolite DATE OF EXAM: 01/19/2023 COMPARISON: NONE CLINICAL INDICATION: Male, 57 years old with history of CP; TECHNIQUE: After the intravenous administration of 10 mCi Tc 99m Sestamibi - Cardiolite resting SPEC T images acquired 50 minutes post injection. The patient received 0.4mg Lexiscan, 24 mCi Tc 99m Sestamibi - Stress images obtained 47 minutes post injection FINDINGS: Review of stress and rest SPECT images demonstrates fixed decreased perfusion involving the cardiac a pex, apical lateral and apical septal lindsey compatible with remote insult. No evidence for stress-ind uced ischemia this time. Gated analysis shows normal wall motion with an estimated left ventricular e jection fraction of 57 %. IMPRESSION: No scintigraphic evidence for reversible ischemia.
[2023-01-19 15:30] LABS: Chol/HDL Ratio 1.53 Ratio; LDL Cholesterol,Calculated 13.1 mg/dL (0.0-131.0); VLDL Calculation 13.76 mg/dL (5.00-40.00)
[2023-01-19] MEDS ORDERED: METOPROLOL TARTRATE 50 MG TAB PO SCH (21:00)
[2023-01-19] MEDS ORDERED: ATORVASTATIN 80 MG TAB PO SCH (21:00)
[2023-01-19] MEDS ORDERED: ASPIRIN 81 MG PO SCH (21:00)
--- NOTE | 2023-01-20 10:05 | CA ---
Transthoracic Echo Report Name: Guido Crump Age: 57 Gender: M : 1965 Exam Date: 01/19/2023 11:27 Exam Location: [facility] Ht (in): 70 Wt (lb): 255 Ordering Physician: Sussy Grimaldo Attending/Referring Phys: [id number], [employer] In[employer] Procedure CPT: Indications: LV function, CP Cardiac Hx: Technical Quality: Technically difficult study Contrast 1: Definity Total Dose (mL): 3 Contrast 2: Total Dose (mL): MEASUREMENTS (Male / Female) Normal Values 2D ECHO LV Diastolic Diameter PLAX 4.0 cm 4.2 - 5.9 / 3.9 - 5.3 cm LV Systolic Diameter PLAX 3.0 cm IVS Diastolic Thickness 1.2 cm 0.6 - 1.0 / 0.6 - 0.9 cm LVPW Diastolic Thickness 1.1 cm 0.6 - 1.0 / 0.6 - 0.9 cm LV Relative Wall Thickness 0.6 LVOT Diameter 2.0 cm Ascending Aorta Diameter 3.3 cm M-MODE Aortic Root Diameter MM 3.7 cm LA Systolic Diameter MM 4.3 cm LA Ao Ratio MM 1.2 AV Cusp Separation MM 2.4 cm DOPPLER AV Peak Velocity 91.2 cm/s AV Peak Gradient 3.3 mmHg AV Mean Velocity 70.3 cm/s AV Mean Gradient 2.2 mmHg AV Velocity Time Integral 21.1 cm LVOT Peak Velocity 76.2 cm/s LVOT Peak Gradient 2.3 mmHg LVOT Velocity Time Integral 13.9 cm LVOT Stroke Volume 41.8 cm??? LVOT Stroke Volume Index 18.1 ml/m??? LVOT Cardiac Index 1289.1 cm???/min???m??? AV Area Cont Eq vti 2.0 cm??? AV Area Cont Eq pk 2.5 cm??? Mitral E Point Velocity 58.4 cm/s Mitral A Point Velocity 66.3 cm/s Mitral E to A Ratio 0.9 MV Deceleration Time 271.8 ms LV E' Lateral Velocity 10.7 cm/s Mitral E to LV E' Lateral Ratio 5.5 LV E' Septal Velocity 7.5 cm/s Mitral E to LV E' Septal Ratio 7.7 Right Atrial Pressure 8.0 mmHg FINDINGS Left Ventricle Mildly increased left ventricular wall thickness. Left ventricular cavity size normal. Low normal left ventricular systolic function with no obvious regional wall motion abnormalities. Left ventricular ejection fraction is estimated at 50-55%. Right Ventricle Right ventricle not well visualized. Right Atrium Right atrium not well visualized. Left Atrium Left atrial size at the upper limits of normal. Mitral Valve Mitral valve thickened. No mitral regurgitation. Aortic Valve Aortic valve not well visualized. Tricuspid Valve Tricuspid valve not well visualized. Pulmonic Valve Pulmonic valve not well visualized. Pericardium Minimal pericardial effusion (normal variant). Aorta Normal size aortic root and proximal ascending aorta. CONCLUSIONS Left ventricular ejection fraction is estimated at 50-55%. no obvious regional wall motion abnormalities. No significant valvular dysfunction No pericardial effusion Previewed by: Dr Amadou Shell (Electronically Signed) Final Date: 20 January 2023 10:04
--- NOTE | 2023-01-20 10:10 | CA ---
Lexiscan Nuclear Stress Test Report Name: Guido Crump Exam Date: 01/19/2023 12:38 Exam Location: [facility] Ht (in): 70 Wt (lb): 255 BSA: 2.31 Ordering Phys: Sussy Grimaldo Referring Phys: SELENE,, Technologist: ERIK,, Age: 57 Gender: M : 1965 Procedure CPT: Indications: Reflex order-Stress test ICD-10 Codes: Patient History: Chest pain and ASCAD Medications: Meds past 24 hrs: Pretest Chest Pain: STRESS TEST Lexiscan Protocol Exercise Duration (min:sec): 02:[address] Depressions (mm): Angina Score: Higgins Score: Resting HR (bpm): 76 Peak HR (bpm): 94 Resting BP (mmHg): 110 / 74 Peak BP (mmHg): 123 / 76 MPHR: 164 Target HR: 139 % MPHR: 57 METS: 1.0 Total Dose: Peak Dose: Atropine: Double Product: 51074 BP Response: Stress Termination: Infusion complete Stress Symptoms: No chest pain or symptoms Stress Summary: ECG ANALYSIS Resting ECG: Normal sinus rhythm, heart rate 77 beats a minute. Occasional PVCs Stress ECG: No significant ST-T wave changes diagnostic for ischemia. No sustained arrhythmias. Occasional PVCs CONCLUSIONS Nonischemic ECG and normal hemodynamic response to Lexiscan infusion Overall normal ECG portion of Lexiscan nuclear stress test Please refer to the nuclear portion of the stress test for complete interpretation of this study Dr Amadou Shell (Electronically Signed) Final Date: 20 January 2023 10:09
== END 2023-01-19 16:06 | disposition home or self-care (01) ==
LOC: EC 17:12 → 3SCARD 19:57 → INTOOBSV 19:57 → 3SCARD 20:49
PROVIDERS: ADMIT Internal Medicine; ATTEND Internal Medicine
DX: R07.9 Chest pain, unspecified (principal); R11.2 Nausea with vomiting, unspecified; J44.9 Chronic obstructive pulmonary disease, unspecified; I13.10 Hypertensive heart and chronic kidney disease without heart failure, with stage 1 through stage 4 chronic kidney disease, or unspecified chronic kidney disease; N18.2 Chronic kidney disease, stage 2 (mild); I25.5 Ischemic cardiomyopathy; I25.10 Atherosclerotic heart disease of native coronary artery without angina pectoris; I25.119 Atherosclerotic heart disease of native coronary artery with unspecified angina pectoris; E78.5 Hyperlipidemia, unspecified; K21.9 Gastro-esophageal reflux disease without esophagitis; E11.40 Type 2 diabetes mellitus with diabetic neuropathy, unspecified; F10.20 Alcohol dependence, uncomplicated; G47.33 Obstructive sleep apnea (adult) (pediatric); K64.9 Unspecified hemorrhoids; F32.A Depression, unspecified; F41.9 Anxiety disorder, unspecified; E11.22 Type 2 diabetes mellitus with diabetic chronic kidney disease; I25.2 Old myocardial infarction; F17.290 Nicotine dependence, other tobacco product, uncomplicated; E66.01 Morbid (severe) obesity due to excess calories; Z68.36 Body mass index [BMI] 36.0-36.9, adult; Z86.73 Personal history of transient ischemic attack (TIA), and cerebral infarction without residual deficits; Z95.5 Presence of coronary angioplasty implant and graft; Z79.82 Long term (current) use of aspirin; Z79.84 Long term (current) use of oral hypoglycemic drugs; Z79.85 Long-term (current) use of injectable non-insulin antidiabetic drugs; Z79.899 Other long term (current) drug therapy
CPT/HCPCS: 96365; 96366 ×2; 99285; 36415; 94760; 93005; 93017; 80061; 80053; 83690; 83735; 84484 ×2; 85025; 85610; 85730; 71046; 78452; G0378 ×2; C8929; A9500; Q9957; J3475; J2785; 93306

== ENCOUNTER 2023-03-22 16:47 | Observation (INO) | payer MEDICARE, OTHER ==
[2023-03-22 17:23] LABS: Anisocytosis Slight; Basophils % (A) 0 %; Eosinophils # (A) 0.1 k/uL (0-0.7); Eosinophils % (A) 1 %; HCT 39.8 % (39.0-53.0); HGB 12.9 gm/dL (13.0-17.5); Hypochromasia Slight; Lymphocytes # (A) 1.1 k/uL (1.0-4.8); Lymphocytes % (A) 12 %; MCH 27.9 pg (25.0-35.0); MCHC 32.4 g/dL (31.0-37.0); MCV 86.3 fL (80.0-100.0); Mean Platelet Volume 7.7; Monocytes # (A) 0.4 k/uL (0-1.0); Monocytes % (A) 4 %; Neutrophils % (A) 82 %; Platelet Count 241 k/uL (150-450); RBC 4.61 m/uL (4.30-5.90); RDW 16.2 % (11.5-15.5); WBC 9.7 k/uL (3.8-10.6)
[2023-03-22 17:29] LABS: ALT 20 U/L (4-49); AST 22 U/L (17-59); African American GFR (CKD) 73 (>60 ml/min/1.73 sqM); Alkaline Phosphatase 89 U/L (38-126); Anion Gap 10 mmol/L; Blood Urea Nitrogen 13 mg/dL (9-20); Calcium 9.3 mg/dL (8.4-10.2); Carbon Dioxide 21 mmol/L (22-30); Chloride 111 mmol/L (98-107); Glucose 117 mg/dL (74-99); Magnesium 1.6 mg/dL (1.6-2.3); Non-African American GFR(CKD) 63 (>60 ml/min/1.73 sqM); Sodium 142 mmol/L (137-145); Total Bilirubin 0.8 mg/dL (0.2-1.3); Total Protein 6.7 g/dL (6.3-8.2)
[2023-03-22 17:38] LABS: NT-Pro-B-Type Natriuretic Pept 369 pg/mL
[2023-03-22 17:39] LABS: INR 0.9 (<1.2); Prothrombin Time 10.4 sec (10.0-12.5)
--- NOTE | 2023-03-22 17:50 | XR ---
EXAMINATION TYPE: XR chest 2V DATE OF EXAM: 03/22/2023 5:20 PM CLINICAL INDICATION:Male, 57 years old with history of Chest Pain; [facility] COMPARISON: Chest radiographs from 01/18/2023 TECHNIQUE: XR chest 2V Frontal and lateral views of the chest. FINDINGS: Lungs/Pleura: There is no evidence of pleural effusion, focal consolidation, or pneumothorax. Pulmonary vascularity: Unremarkable. Heart/mediastinum: Cardiomediastinal silhouette is unremarkable. Musculoskeletal: No acute osseous pathology. Midline sternotomy wires are noted. IMPRESSION: No acute cardiopulmonary disease/process.
[2023-03-22] MEDS: ONDANSETRON 4 MG/2 ML VIAL IVP STA (18:11)
[2023-03-22] MEDS: NITROGLYCERIN SL TABS 0.4 MG TAB SUBLINGUAL STA (18:11)
[2023-03-22] MEDS: METOCLOPRAMIDE 5 MG/ML 2 ML VIAL IVP STA (19:43)
[2023-03-22] MEDS: diphenhydrAMINE 50 MG/ML 1 ML VIAL IVP STA (19:44)
--- NOTE | 2023-03-22 19:46 | ED ---
General Adult HPI - General Chief complaint: Chest Pain Stated complaint: Chest Pain Time Seen by Provider: 03/22/23 17:05 Source: patient Mode of arrival: EMS Limitations: no limitations - History of Present Illness Initial comments: 57-year-old male with past medical history of coronary artery disease presents emergency department with chest pain, nausea and vomiting. Reports that the symptoms started earlier today. He has left-sided chest wall pain with additional nausea and vomiting. He denies any sick contacts. Denies eating any tainted foods. Denies any abdominal pain. No fevers. He did not take anything for his chest pain does have access to nitro at home. No other alleviating, precipitating or modifying factors - Related Data Home Medications Medication Instructions Recorded Confirmed Atorvastatin [Lipitor] 80 mg PO HS 06/25/13 03/22/23 Metoprolol Tartrate [Lopressor] 50 mg PO BID 06/25/13 03/22/23 Nitroglycerin Sl Tabs [Nitrostat] 0.4 mg SUBLINGUAL Q5M PRN 06/25/13 03/22/23 Ranolazine [Ranexa] 1,000 mg PO BID 09/23/13 03/22/23 Pantoprazole Sodium [Protonix] 40 mg PO DAILY 07/02/14 03/22/23 Isosorbide Mononitrate ER [Imdur] 60 mg PO BID 10/13/15 03/22/23 Aspirin [Adult Low Dose Aspirin EC] 81 mg PO HS 01/11/16 03/22/23 amLODIPine [Norvasc] 2.5 mg PO DAILY 09/26/17 03/22/23 ALPRAZolam [Xanax] 0.25 mg PO DAILY PRN 04/11/20 03/22/23 lisinopriL [Zestril] 20 mg PO DAILY 07/04/22 03/22/23 Semaglutide [Ozempic] 1 mg SQ TH 01/18/23 03/22/23 Semaglutide [Ozempic] 0.25 - 0.5 mg SQ DIRECTED PRN 03/22/23 03/22/23 Previous Rx's Medication Instructions Recorded metFORMIN HCL [Glucophage] 500 mg PO BID #0 11/27/17 Allergies Allergy/AdvReac Type Severity Reaction Status Date / Time chocolate flavor Allergy Rash/Hives Verified 03/22/23 21:36 [place] And Derivatives Allergy Rash/Hives Verified 03/22/23 21:36 [[place]] Review of Systems ROS Statement: Those systems with pertinent positive or pertinent negative responses have been documented in the HPI. ROS Other: All systems not noted in ROS Statement are negative. 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 Last Myocardial Infarction Date:: 2020 History of Any Multi-Drug Resistant Organisms: None Reported Past Surgical History: Adenoidectomy, Cholecystectomy, Coronary Bypass/CABG, Heart Catheterization, Heart Catheterization With Stent, Hernia Repair Additional Past Surgical History / Comment(s): Several caths with last one done 11/26 total 7 stents (stents placed 01/2011, and 03/2019. 2020), CABG 5 vessel in 2008 (stents came after open heart was done), EGD/colonoscopy, hemorrhoid banding, umbilical hernia repair Past Anesthesia/Blood Transfusion Reactions: Previous Problems w/ Anesthesia Additional Past Anesthesia/Blood Transfusion Reaction / Comment(s): stated "wakes up slower than normal" Date of Last Stent Placement:: 04/26 Past Psychological History: Anxiety, Depression Smoking Status: Light tobacco smoker, Vaper Past Alcohol Use History: Occasional Past Drug Use History: Marijuana - Past Family History Father Family Medical History: Cancer, Coronary Artery Disease (CAD) Additional Family Medical History / Comment(s): dad is 75. stents, bypass, prostate and lung cancer. Mother Additional Family Medical History / Comment(s): mom 1997 at age 59- brain aneurysm General Exam Limitations: no limitations General appearance: alert, in no apparent distress Head exam: Present: atraumatic, normocephalic, normal inspection Eye exam: Present: normal appearance, PERRL, EOMI. Absent: scleral icterus, conjunctival injection, periorbital swelling ENT exam: Present: normal exam, mucous membranes moist Neck exam: Present: normal inspection. Absent: tenderness, meningismus, lymphadenopathy Respiratory exam: Present: normal lung sounds bilaterally. Absent: respiratory distress, wheezes, rales, rhonchi, stridor Cardiovascular Exam: Present: regular rate, normal rhythm, normal heart sounds. Absent: systolic murmur, diastolic murmur, rubs, gallop, clicks GI/Abdominal exam: Present: soft, normal bowel sounds. Absent: distended, ten derness, guarding, rebound, rigid Extremities exam: Present: normal inspection, full ROM, normal capillary refill. Absent: tenderness, pedal edema, joint swelling, calf tenderness Back exam: Present: normal inspection Neurological exam: Present: alert, oriented X3, CN II-XII intact Psychiatric exam: Present: normal affect, normal mood Skin exam: Present: warm, dry, intact, normal color. Absent: rash Course Vital Signs 03/22/23 03/22/23 03/22/23 17:00 17:32 17:33 Temperature 97.9 F Pulse Rate 98 90 Pulse Rate [ 89 Apiculture Teacher ] Respiratory 20 18 Rate Blood Pressure 145/97 139/102 Blood Pressure [Right Arm] O2 Sat by Pulse 97 98 Oximetry 03/22/23 03/22/23 03/23/23 18:10 23:42 01:05 Temperature 98.8 F 97.7 F Pulse Rate 86 84 Pulse Rate [ 77 Apiculture Teacher ] Respiratory 17 18 16 Rate Blood Pressure 143/99 138/98 Blood Pressure 141/95 [Right Arm] O2 Sat by Pulse 97 97 98 Oximetry Medical Decision Making - Medical Decision Making Was pt. sent in by a medical professional or institution (, PA, WATCH MECHANIC, urgent care, hospital, or longterm...) When possible be specific @ -No Did you speak to anyone other than the patient for history (EMS, parent, family, police, friend...)? What history was obtained from this source @ -EMS Did you review nursing and triage notes (agree or disagree)? Why? @ -I reviewed and agree with nursing and triage notes Were old charts reviewed (outside hosp., previous admission, EMS record, old EKG, old radiological studies, urgent care reports/EKG's, longterm records)? Report findings @ -No old charts were reviewed Differential Diagnosis (chest pain, altered mental status, abdominal pain women, abdominal pain men, vaginal bleeding, weakness, fever, dyspnea, syncope, headache, dizziness, GI bleed, back pain, seizure, CVA, palpatations, mental health, musculoskeletal)? @ -Differential Chest Pain: Stable Angina, Unstable Angina, STEMI, NSTEMI Aortic Dissection, Pneumothorax, Musculoskeletal, Esophageal Spasm GERD, Cholecystitis, Pancreatitis, Zoster, this is not meant to be an all-inclusive list. EKG interpreted by me (3pts min.). @ -Yes and demonstrates sinus rhythm with a rate of 94. MO interval 176. QRS 99. QTc of 435. Mild ST segment lead III. ST depression 1, aVL as well as V2 through V6. This morphology was seen previously on patient's old EKGs X-rays interpreted by me (1pt min.). @ -Yes and demonstrates no acute process CT interpreted by me (1pt min.). @ -None done U/S interpreted by me (1pt. min.). @ -None done What testing was considered but not performed or refused? (CT, X-rays, U/S, labs)? Why? @ -None What meds were considered but not given or refused? Why? @ -None Did you discuss the management of the patient with other professionals (professionals i.e. , PA, WATCH MECHANIC, lab, RT, psych nurse, social worker psychiatric, cashier credit, teacher, student liaison officer, shoe caser)? Give summary @ -Spoke with Dr. Hernández who states that the patient can stay Was smoking cessation discussed for >3mins.? @ -No Was critical care preformed (if so, how long)? @ -No Were there social determinants of health that impacted care today? How? (Homelessness, low income, unemployed, alcoholism, drug addiction, transportation, low edu. Level, literacy, decrease access to med. care, [facility], rehab)? @ -No Was there de-escalation of care discussed even if they declined (Discuss DNR or withdrawal of care, Hospice)? DNR status @ -No What co-morbidities impacted this encounter? (DM, HTN, Smoking, COPD, CAD, Cancer, CVA, ARF, Chemo, Hep., AIDS, mental health diagnosis, sleep apnea, morbid obesity)? @ -Coronary artery disease Was patient admitted / discharged? Hospital course, mention meds given and rou te, prescriptions, significant lab abnormalities, going to OR and other pertinent info. @ -Admitted. Upon arrival patient placed into room 21. Thorough history and physical exam was performed. Patient given nausea and pain medications. Laboratory studies are conducted. Twelve-lead EKG was performed. I reevaluate the patient and he continues to be symptomatic. He was given a second dose of nausea medications. I called and spoke with Dr. Hernández. He was agreeable to admit the patient overnight. Patient remained in stable condition awaiting a bed on the floor Undiagnosed new problem with uncertain prognosis? @ -No Drug Therapy requiring intensive monitoring for toxicity (Heparin, Nitro, Insulin, Cardizem)? @ -No Were any procedures done? @ -No Diagnosis/symptom? @ -Acute chest pain, history of atherosclerotic coronary artery disease Acute, or Chronic, or Acute on Chronic? @ -Acute Uncomplicated (without systemic symptoms) or Complicated (systemic symptoms)? @ -Complicated Side effects of treatment? @ -No Exacerbation, Progression, or Severe Exacerbation? @ -No Poses a threat to life or bodily function? How? (Chest pain, [place], [place], pneumonia, PE, COPD, DKA, ARF, appy, cholecystitis, CVA, Diverticulitis, Homicidal, Suicidal, threat to staff... and all critical care pts) @ -No - Lab Data Result diagrams: 03/23/23 05:42 03/23/23 05:38 Lab Results 03/22/23 03/22/23 03/22/23 Range/Units 17:12 17:12 17:12 WBC 9.7 (3.8-10.6) k/uL RBC 4.61 (4.30-5.90) m/uL Hgb 12.9 L (13.0-17.5) gm/dL Hct 39.8 (39.0-53.0) % MCV 86.3 (80.0-100.0) fL MCH 27.9 (25.0-35.0) pg MCHC 32.4 (31.0-37.0) g/dL RDW 16.2 H (11.5-15.5) % Plt Count 241 (150-450) k/uL MPV 7.7 Neutrophils % 82 % Lymphocytes % 12 % Monocytes % 4 % Eosinophils % 1 % Basophils % 0 % Neutrophils # 8.0 H (1.3-7.7) k/uL Lymphocytes # 1.1 (1.0-4.8) k/uL Monocytes # 0.4 (0-1.0) k/uL Eosinophils # 0.1 (0-0.7) k/uL Basophils # 0.0 (0-0.2) k/uL Hypochromasia Slight Anisocytosis Slight PT 10.4 (10.0-12.5) sec INR 0.9 (<1.2) APTT 22.0 (22.0-30.0) sec Sodium 142 (137-145) mmol/L Potassium 4.0 (3.5-5.1) mmol/L Chloride 111 H (98-107) mmol/L Carbon Dioxide 21 L (22-30) mmol/L Anion Gap 10 mmol/L BUN 13 (9-20) mg/dL Creatinine 1.26 H (0.66-1.25) mg/dL Est GFR (CKD-EPI)AfAm 73 (>60 ml/min/1.73 sqM) Est GFR (CKD-EPI)NonAf 63 (>60 ml/min/1.73 sqM) Glucose 117 H (74-99) mg/dL Calcium 9.3 (8.4-10.2) mg/dL Magnesium 1.6 (1.6-2.3) mg/dL Total Bilirubin 0.8 (0.2-1.3) mg/dL AST 22 (17-59) U/L ALT 20 (4-49) U/L Alkaline Phosphatase 89 (38-126) U/L Troponin I (0.000-0.034) ng/mL NT-Pro-B Natriuret Pep 369 pg/mL Total Protein 6.7 (6.3-8.2) g/dL Albumin 4.0 (3.5-5.0) g/dL Lipase (23-300) U/L 03/22/23 03/22/23 Range/Units 17:12 17:12 WBC (3.8-10.6) k/uL RBC (4.30-5.90) m/uL Hgb (13.0-17.5) gm/dL Hct (39.0-53.0) % MCV (80.0-100.0) fL MCH (25.0-35.0) pg MCHC (31.0-37.0) g/dL RDW (11.5-15.5) % Plt Count (150-450) k/uL MPV Neutrophils % % Lymphocytes % % Monocytes % % Eosinophils % % Basophils % % Neutrophils # (1.3-7.7) k/uL Lymphocytes # (1.0-4.8) k/uL Monocytes # (0-1.0) k/uL Eosinophils # (0-0.7) k/uL Basophils # (0-0.2) k/uL Hypochromasia Anisocytosis PT (10.0-12.5) sec INR (<1.2) APTT (22.0-30.0) sec Sodium (137-145) mmol/L Potassium (3.5-5.1) mmol/L Chloride (98-107) mmol/L Carbon Dioxide (22-30) mmol/L Anion Gap mmol/L BUN (9-20) mg/dL Creatinine (0.66-1.25) mg/dL Est GFR (CKD-EPI)AfAm (>60 ml/min/1.73 sqM) Est GFR (CKD-EPI)NonAf (>60 ml/min/1.73 sqM) Glucose (74-99) mg/dL Calcium (8.4-10.2) mg/dL Magnesium (1.6-2.3) mg/dL Total Bilirubin (0.2-1.3) mg/dL AST (17-59) U/L ALT (4-49) U/L Alkaline Phosphatase (38-126) U/L Troponin I <0.012 (0.000-0.034) ng/mL NT-Pro-B Natriuret Pep pg/mL Total Protein (6.3-8.2) g/dL Albumin (3.5-5.0) g/dL Lipase 246 (23-300) U/L Disposition Clinical Impression: Chest pain Disposition: ADMITTED IP TO THIS [facility] Condition: Stable Is patient prescribed a controlled substance at d/c from ED?: No Time of Disposition: 20:32 Decision to Admit Reason: Admit from EC Decision Date: 03/22/23 Decision Time: 20:33
[2023-03-22] MEDS ORDERED: NALOXONE 0.4 MG/ML 1 ML VIAL IV PRN (20:35)
[2023-03-23 01:39] LABS: Glucose,Whole Blood 88 mg/dL (70-110)
[2023-03-23] MEDS ORDERED: NITROGLYCERIN SL TABS 0.4 MG TAB SUBLINGUAL PRN (03:17)
[2023-03-23] MEDS ORDERED: DEXTROSE 50% SYRINGE 50 ML IVP PRN ×2 (03:19)
[2023-03-23] MEDS ORDERED: METOCLOPRAMIDE 5 MG/ML 2 ML VIAL IVP PRN (03:54)
[2023-03-23 05:22] VITALS: RESP 16
[2023-03-23] MEDS ORDERED: METOCLOPRAMIDE 5 MG/ML 2 ML VIAL IVP SCH (06:00)
[2023-03-23 06:27] LABS: Glucose,Whole Blood 91 mg/dL (70-110)
[2023-03-23] MEDS: INSULIN ASPART (NovoLOG) 100 UNIT/ML VIAL SQ SCH (06:30)
[2023-03-23 08:24] LABS: Basophils # (A) 0.03 X 10*3/uL (0.00-0.10); Basophils % (A) 0.4 %; Eosinophils # (A) 0.06 X 10*3/uL (0.04-0.35); Eosinophils % (A) 0.9 %; HCT 33.7 % (39.6-50.0); HGB 10.8 g/dL (13.0-17.0); Lymphocytes # (A) 1.82 X 10*3/uL (0.90-5.00); Lymphocytes % (A) 26.6 %; MCH 26.9 pg (27.0-32.0); Mean Platelet Volume 9.7 FL (9.5-12.2); Monocytes # (A) 0.48 X 10*3/uL (0.20-1.00); NRBC Per 100 WBC 0 X 10*3/uL (0.00-0.01); Neutrophils # (A) 4.41 X 10*3/uL (1.80-7.70); Neutrophils % (A) 64.5 %; Platelet Count 208 X 10*3/uL (140-440); RBC 4.01 X 10*6/uL (4.40-5.60); RDW 16.3 % (11.5-14.5); WBC 6.84 X 10*3/uL (4.50-10.00)
[2023-03-23 08:38] LABS: BUN/Creat Ratio 11.33 Ratio (12.00-20.00); Blood Urea Nitrogen 13.6 mg/dL (9.0-27.0); Calcium 8.3 mg/dL (8.7-10.3); Chloride 108 mmol/L (96-109); Glucose 83 mg/dL (70-110); Potassium 4.1 mmol/L (3.5-5.5); Sodium 141 mmol/L (135-145)
[2023-03-23] MEDS: METOPROLOL TARTRATE 50 MG TAB PO SCH (09:03)
[2023-03-23] MEDS: amLODIPine 2.5 MG TAB PO SCH (09:03)
[2023-03-23] MEDS: PANTOPRAZOLE 40 MG TABLET PO SCH (09:03)
[2023-03-23] MEDS: lisinopriL 20 MG TAB PO SCH (09:03)
[2023-03-23] MEDS: metFORMIN 500 MG TAB PO SCH (09:03)
[2023-03-23] MEDS: ISOSORBIDE MONONITRATE ER 60 MG TAB.ER.24H PO SCH (09:03)
[2023-03-23] MEDS: RANOLAZINE 500 MG TAB.ER.12H PO SCH (09:04)
--- NOTE | 2023-03-23 10:48 | P.CRDCN ---
History of Present Illness History of present illness: HISTORY OF PRESENT ILLNESS: This is a 57-year-old male with a past medical history significant for coronary artery disease with previous CABG and stenting, hypertension, hyperlipidemia, d iabetes, and former nicotine dependence. Patient follows in the office with Dr. Jorgensen. We have been asked to see the patient in consultation for chest pain. Patient examined at the bedside. States he has been having episodes of vomiting recently. He states he had a few episodes of vomiting yesterday and then developed chest discomfort afterwards. He reports the pain was in the middle of his chest. He states the pain lasted for approximately 1-1/2 hours. He did receive nitroglycerin sublingually which did not help his pain. He does report some mild discomfort this morning underneath his left breast. The patient is also on Ozempic which he states he has been on for approximately 1 year and has lost about 50 pounds. DIAGNOSTICS: - EKG reveals sinus mechanism with no signs of acute ischemia. - Chest xray negative for acute process. - Laboratory data: WBC 6.84. Hemoglobin 10.8. Platelet count 208. Sodium 141. Potassium 4.1. BUN 13. Creatinine 1.2. Troponin negative x 1. - Current home cardiac medications include aspirin 81 mg daily, atorvastatin 80 mg at night, Imdur 60 mg twice a day, metoprolol tartrate 50 mg twice daily, Ranexa 1000 mg twice a day, amlodipine 2.5 mg daily, lisinopril 20 mg daily. - Most recent echocardiogram obtained in January 2023 reveals ejection fraction 50 to 55%. - Patient underwent Lexiscan stress test in January 2023 which was negative for ischemia - Cardiac catheterization history: April 2020 with stenting of the proximal circumflex REVIEW OF SYSTEMS: At the time of my exam: CONSTITUTIONAL: Denies fever or chills. HEENT: Denies blurred vision, vision changes, or eye pain. Denies hemoptysis CARDIOVASCULAR: Denies chest pain. Denies orthopnea. Denies PND. Denies palpitations RESPIRATORY: Denies shortness of breath. GASTROINTESTINAL: Denies abdominal pain. Denies nausea or vomiting. HEMATOLOGIC: Denies bleeding disorders. GENITOURINARY: Denies any blood in urine. SKIN: Denies pruitis. Denies rash. PHYSICAL EXAM: VITAL SIGNS: Reviewed. GENERAL: Well-developed in no acute distress. HEENT: Head is normocephalic. Pupils are equal, round. Sclerae anicteric. Mucous membranes of the mouth are moist. Neck supple. No JVD or thyromegaly LUNGS: Respirations even and unlabored. Lungs essentially clear to auscultation bilaterally. HEART: Regular rate and rhythm. S1 and S2 heard. ABDOMEN: Soft. Nondistended. Nontender. EXTREMITIES: Normal range of motion. No clubbing or cyanosis. Peripheral pulses intact. No lower extremity edema NEUROLOGIC: Awake and alert. Oriented x 3. ASSESSMENT: Nausea and vomiting, may be secondary to semaglutide with possible component of diabetic gastroparesis Chest pain, atypical, likely secondary to above Coronary artery disease with four-vessel CABG in 2008 and subsequent stenting of proximal circumflex, 2020 Hypertension Hyperlipidemia Diabetes Former nicotine dependence PLAN: An acute coronary but has been ruled out Resume home cardiac medications No need to repeat echocardiogram Patient symptoms may be secondary to semaglutide. Will defer to internal medicine if they wish to decrease or discontinue medication No further inpatient recommendations from a cardiac standpoint Patient may be discharged home and follow-up postdischarge with Dr. Jorgensen Nurse practitioner note has been reviewed by physician. Signing provider agrees with the documented findings, assessment, and plan of care documented by FIELD INSURANCE SALES MANAGER as a scribe. 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 Last Myocardial Infarction Date:: 2020 History of Any Multi-Drug Resistant Organisms: None Reported Past Surgical History: Adenoidectomy, Cholecystectomy, Coronary Bypass/CABG, Heart Catheterization, Heart Catheterization With Stent, Hernia Repair Additional Past Surgical History / Comment(s): Several caths with last one done 11/26 total 7 stents (stents placed 01/2011, and 2020), CABG 5 vessel in 2008 (stents came after open heart was done), EGD/colonoscopy, hemorrhoid banding, umbilical hernia repair Past Anesthesia/Blood Transfusion Reactions: Previous Problems w/ Anesthesia Additional Past Anesthesia/Blood Transfusion Reaction / Comment(s): stated "wakes up slower than normal" Date of Last Stent Placement:: 04/26 Past Psychological History: Anxiety, Depression Additional Psychological History / Comment(s): Pt states he has no current mental health disease. He states he had suicidal thoughts yrs ago at age 43, immediately following CABG in 2008 due to drastic lifestyle changes and being told he could no longer work. Patient currently lives with brother and niece. lives with brother and neice, does not work Smoking Status: Light tobacco smoker, Vaper Past Alcohol Use History: Occasional Additional Past Alcohol Use History / Comment(s): started smoking age 15 never more than 1/2 ppd and later in life took up cigars (one per month at most). Past Drug Use History: Marijuana Additional Drug Use History / Comment(s): as teenager into 20's [facility], "seldom marijuana". stopped vaping Dec 2021, smokes 1 cigar monthly - Past Family History Father Family Medical History: Cancer, Coronary Artery Disease (CAD) Additional Family Medical History / Comment(s): dad is 75. stents, bypass, prostate and lung cancer. Mother Additional Family Medical History / Comment(s): mom 1997 at age 59- brain aneurysm Medications and Allergies Home Medications Medication Instructions Recorded Confirmed Type Atorvastatin [Lipitor] 80 mg PO HS 06/25/13 03/22/23 History Metoprolol Tartrate [Lopressor] 50 mg PO BID 06/25/13 03/22/23 History Nitroglycerin Sl Tabs [Nitrostat] 0.4 mg SUBLINGUAL Q5M PRN 06/25/13 03/22/23 History Ranolazine [Ranexa] 1,000 mg PO BID 09/23/13 03/22/23 History Pantoprazole Sodium [Protonix] 40 mg PO DAILY 07/02/14 03/22/23 History Isosorbide Mononitrate ER [Imdur] 60 mg PO BID 10/13/15 03/22/23 History Aspirin [Adult Low Dose Aspirin EC] 81 mg PO HS 01/11/16 03/22/23 History amLODIPine [Norvasc] 2.5 mg PO DAILY 09/26/17 03/22/23 History metFORMIN HCL [Glucophage] 500 mg PO BID #0 11/27/17 03/22/23 Rx ALPRAZolam [Xanax] 0.25 mg PO DAILY PRN 04/11/20 03/22/23 History lisinopriL [Zestril] 20 mg PO DAILY 07/04/22 03/22/23 History Semaglutide [Ozempic] 1 mg SQ TH 01/18/23 03/22/23 History Semaglutide [Ozempic] 0.25 - 0.5 mg SQ DIRECTED PRN 03/22/23 03/22/23 History Allergies Allergy/AdvReac Type Severity Reaction Status Date / Time chocolate flavor Allergy Rash/Hives Verified 03/22/23 21:36 [place] And Derivatives Allergy Rash/Hives Verified 03/22/23 21:36 [[place]] Physical Exam Vitals: Vital Signs Temp Pulse Pulse Pulse Resp BP BP 03/23/23 07:20 98.4 F 70 16 124/84 03/23/23 01:05 97.7 F 77 16 03/22/23 23:42 98.8 F 84 18 138/98 03/22/23 18:10 86 17 143/99 03/22/23 17:33 89 03/22/23 17:32 90 18 139/102 03/22/23 17:00 97.9 F 98 20 145/97 BP Pulse Ox 03/23/23 07:20 97 03/23/23 01:05 141/95 98 03/22/23 23:42 97 03/22/23 18:10 97 03/22/23 17:33 03/22/23 17:32 98 03/22/23 17:00 97 Intake and Output 03/22/23 03/23/23 03/23/23 22:59 06:59 14:59 Other: Voiding Method Toilet # Voids 1 Weight 112.491 kg 112.491 kg Results 03/23/23 05:42 03/23/23 05:38 Cardiac Enzymes 03/22/23 03/22/23 03/22/23 Range/Units 17:12 17:12 20:54 AST 22 (17-59) U/L Troponin I <0.012 <0.012 (0.000-0.034) ng/mL Coagulation 03/22/23 Range/Units 17:12 PT 10.4 (10.0-12.5) sec APTT 22.0 (22.0-30.0) sec CBC 03/22/23 Range/Units 17:12 WBC 9.7 (3.8-10.6) k/uL RBC 4.61 (4.30-5.90) m/uL Hgb 12.9 L (13.0-17.5) gm/dL Hct 39.8 (39.0-53.0) % Plt Count 241 (150-450) k/uL Comprehensive Metabolic Panel 03/22/23 Range/Units 17:12 Sodium 142 (137-145) mmol/L Potassium 4.0 (3.5-5.1) mmol/L Chloride 111 H (98-107) mmol/L Carbon Dioxide 21 L (22-30) mmol/L BUN 13 (9-20) mg/dL Creatinine 1.26 H (0.66-1.25) mg/dL Glucose 117 H (74-99) mg/dL Calcium 9.3 (8.4-10.2) mg/dL AST 22 (17-59) U/L ALT 20 (4-49) U/L Alkaline Phosphatase 89 (38-126) U/L Total Protein 6.7 (6.3-8.2) g/dL Albumin 4.0 (3.5-5.0) g/dL Current Medications Generic Name Dose Route Start Last Admin Trade Name Freq PRN Reason Stop Dose Admin Amlodipine Besylate 2.5 mg 03/23/23 09:00 Amlodipine 2.5 Mg Tab PO DAILY EDWARDO Aspirin 81 mg 03/23/23 21:00 Aspirin 81 Mg PO HS EDWARDO Atorvastatin Calcium 80 mg 03/23/23 21:00 Atorvastatin 80 Mg Tab PO HS EDWARDO Dextrose/Water 25 ml 03/23/23 03:19 Dextrose 50% Syringe 50 Ml IVP PER PROTOCOL PRN Hypoglycemia Protocol Dextrose/Water 50 ml 03/23/23 03:19 Dextrose 50% Syringe 50 Ml IVP PER PROTOCOL PRN Hypoglycemia Protocol Insulin Aspart 0 unit 03/23/23 07:30 03/23/23 06:30 Insulin Aspart (Novolog) 100 Unit/Ml Vial SQ Not Given ACHS EDWARDO Protocol Isosorbide Mononitrate 60 mg 03/23/23 09:00 Isosorbide Mononitrate Er 60 Mg Tab.Er.24h PO BID [facility] Lisinopril 20 mg 03/23/23 09:00 Lisinopril 20 Mg Tab PO DAILY [facility] Metformin HCl 500 mg 03/23/23 09:00 Metformin 500 Mg Tab PO BID [facility] Metoclopramide HCl 10 mg 03/23/23 03:54 Metoclopramide 5 Mg/Ml 2 Ml Vial IVP Q6HR PRN Nausea Metoprolol Tartrate 50 mg 03/23/23 09:00 Metoprolol Tartrate 50 Mg Tab PO BID [facility] Naloxone HCl 0.2 mg 03/22/23 20:35 Naloxone 0.4 Mg/Ml 1 Ml Vial IV Q2M PRN Opioid Reversal Nitroglycerin 0.4 mg 03/23/23 03:17 Nitroglycerin Sl Tabs 0.4 Mg Tab SUBLINGUAL Q5M PRN Chest Pain Pantoprazole Sodium 40 mg 03/23/23 09:00 Pantoprazole 40 Mg Tablet PO DAILY [facility] Ranolazine 1,000 mg 03/23/23 09:00 Ranolazine 500 Mg Tab.Er.12h PO BID [facility] Intake and Output 03/22/23 03/23/23 03/23/23 22:59 06:59 14:59 Other: Voiding Method Toilet # Voids 1 Weight 112.491 kg 112.491 kg 03/22/23 17:12 03/22/23 17:12
[2023-03-23 12:22] LABS: Glucose,Whole Blood 83 mg/dL (70-110)
[2023-03-23 15:03] VITALS: BP 124/86; PULSE 68; TEMP 97.4
--- NOTE | 2023-03-23 15:33 | P.HPIM ---
History of Present Illness H&P Date: 03/23/23 Chief Complaint: chest pain HISTORY and PHYSICAL AND DISCHARGE SUMMARY HISTORY OF PRESENT ILLNESS: This is a 57-year-old gentleman patient of mc and Dr Jorgensen with history of CAD, CABG and stenting, previous CVA involving the occipital lobe,chronic tobacco use and cigar use, moderate alcohol consumption, diabetes mellitus type 2, His cardiac history are as follows:coronary artery disease multiple procedure including bypass grafting 2008 which is HOPKINS to the LAD and saphenous vein graft to the diagonal 1 saphenous vein graft to the diagonal 2 and saphenous vein graft to the obtuse marginal and right coronary artery. His last heart catheterization was in November 2017 at which time circumflex had a 60-70% lesion with fractional flow reserve of that lesion to be ischemic at 0.80. Mid left circumflex normal, left circumflex distally normal. LAD with mild disease, right coronary artery chronically occluded at the proximal portion and fills with collaterals from the left coronary system. The saphenous vein graft to the first diagonal, saphenous vein graft to the second diagonal, saphenous vein graft to the obtuse marginal were all patent. HOPKINS to LAD was atrophic and occluded in the midportion. Patient underwent drug-eluting stent to the proximal left circumflex. Patient [facility] at [facility] due to vomitingarea patient states that he started with vomiting and abdominal pain and then moved into chest pain in the middle of his chest. Patient has been seen by cardiology and scheduled for Lexiscan stress test today. EKG sinus rhythm with T-wave inversions minimal ST elevation in lead 3 and aVF. Chest x-ray is negative for any acute process. WBC 12.6, troponins negative 3.Lexiscan stress test came back negative and patient will be discharged home today in stable condition. REVIEW OF SYSTEMS: Constitutional: No documented fever, no chills, no night sweats. No weight change. No weakness, fatigue or lethargy. No daytime sleepiness. EENT: No headache. No blurred vision or double vision, no loss of vision. No loss of Hearing, no ringing in the ears, no dizziness. No nasal drainage or congestion. No epistaxis. No sore throat. Lungs: No shortness of breath, no cough, no sputum production. No wheezing. Reports dyspnea with activity. Cardiovascular: No chest pain, no lower extremity edema. No palpitations. No paroxysmal nocturnal dyspnea. No orthopnea. No lightheadedness or dizziness. No syncopal episodes. Abdominal: Reports no abdominal pain. Reports nausea, and vomiting. No diarrhea. No constipation. No bloody or tarry stools reports loss of appetite. Genitourinary: No dysuria, increased frequency, urgency. No urinary retention. Musculoskeletal: No myalgias. No muscle weakness, no gait dysfunction, no frequent falls. No back pain. No neck pain. Integumentary: No wounds, no lesions. No rash or pruritus. No unusual bruising. No change in hair or nails. Neurologic: No aphasia. No facial droop. No change in mentation. No head injury. No headache. No paralysis. No paresthesia. Psychiatric: No depression. No anxiety. No mood swings. Endocrine: No abnormal blood sugars. No weight change. PAST MEDICAL HISTORY: CAD post CABG X 5 HOPKINS to LAD, SVG to Dx1, Dx2, OM1, RCA Ischemic cardiomyopathy. Hypertension and hypertensive cardiovascular disease. Hyperlipidemia. Diabetes mellitus type 2. CVA involving the right occipital lobe Chronic tobacco use Chronic alcohol use obesity with obstructive sleep apnea. Hemorrhoids. PAST SURGICAL HISTORY: CABG 5 2008 Left heart [id number], 2019,2020 total of 7 stents placement Tonsillectomy and adenoidectomy. Umbilical hernia repair Cholecystectomy EGD and colonoscopy Hemorrhoid banding SOCIAL HISTORY: Patient smokes cigar once in a while, he denies any cigarette smoking, he still drinks occasionally, he denies any drug use or abuse. FAMILY HISTORY: Father at age 75 from coronary artery disease status post coronary artery bypass grafting also had a history of prostate cancer 1 cancer, mother at age 59 from brain aneurysm. PHYSICAL EXAMINATION: General: 57-year-old male sitting up in bed in no acute distress. HEENT: Head is atraumatic, normocephalic, pupils were equal round reactive to light and recommendation, extraocular muscle movement were intact, sclera nonicteric, conjunctivae were pale, mucous membranes of the mouth are somewhat dry. Neck: Supple, no JVP, normal carotid upstroke bilaterally, no lymphadenopathy. Chest: Decreased breath sounds at the bases, few rhonchi, no expiratory wheezes, no chest wall tenderness, no intercostal retractions. Heart: First heart sound is normal, second heart sounds normal . There is systolic ejection murmur 2/6 located in the left sternal border. Abdomen: Soft, mild tenderness in the epigastric area, nondistended, positive bowel sounds. Extremities: There is no edema no calf tenderness DP +2 bilaterally. Neurologic examination: Patient is awake alert and oriented X 3, cranial nerves II-12 appear grossly intact, muscle power were 5 out of 5 in upper extremities and 5 out of 5 in bilateral lower extremities, deep tendon reflexes normal bilaterally. ASSESSMENT AND PLAN: 1. Chest pain likely noncardiac likely related to nausea and vomiting due to Semaglutide 2. Nausea and vomiting possibly related to Semaglutide 3. CAD with prior bypass surgery and percutaneous coronary interventions. 4. COPD without exacerbation . 5. CKD stage II. 6. Ischemic cardiomyopathy with angina: With multiple coronary artery disease. We will continue patient on metoprolol 50 mg orally twice every day, lisinopril 20 mg orally once every day, Ranexa 1000 mg orally twice every day and Imdur 60 mg orally twice every day. 7. Hypertension and hypertensive cardiovascular disease. metoprolol 50 mg twice a day, lisinopril 20 mg daily, Norvasc 2.5 mg daily. 8. Hyperlipidemia. On atorvastatin 80 mg daily. 9. GERD. Protonix 40 mg daily. 10. Chronic tobacco use. Smoking cessation 11. Morbid obesity with BMI of 39.7 we will continue with diet and exercise and weight loss and total life style changes with risk factor modifications. 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 Last Myocardial Infarction Date:: 2020 History of Any Multi-Drug Resistant Organisms: None Reported Past Surgical History: Adenoidectomy, Cholecystectomy, Coronary Bypass/CABG, Heart Catheterization, Heart Catheterization With Stent, Hernia Repair Additional Past Surgical History / Comment(s): Several caths with last one done 11/26 total 7 stents (stents placed 01/2011, and 03/2019. 2020), CABG 5 vessel in 2008 (stents came after open heart was done), EGD/colonoscopy, hemorrhoid banding, umbilical hernia repair Past Anesthesia/Blood Transfusion Reactions: Previous Problems w/ Anesthesia Additional Past Anesthesia/Blood Transfusion Reaction / Comment(s): stated "wakes up slower than normal" Date of Last Stent Placement:: 04/26 Past Psychological History: Anxiety, Depression Additional Psychological History / Comment(s): Pt states he has no current mental health disease. He states he had suicidal thoughts yrs ago at age 43, immediately following CABG in 2008 due to drastic lifestyle changes and being told he could no longer work. Patient currently lives with brother and niece. lives with brother and neice, does not work Smoking Status: Light tobacco smoker, Vaper Past Alcohol Use History: Occasional Additional Past Alcohol Use History / Comment(s): started smoking age 15 never more than 1/2 ppd and later in life took up cigars (one per month at most). Past Drug Use History: Marijuana Additional Drug Use History / Comment(s): as teenager into 20's occ, "seldom marijuana". stopped vaping Dec 2021, smokes 1 cigar monthly - Past Family History Father Family Medical History: Cancer, Coronary Artery Disease (CAD) Additional Family Medical History / Comment(s): dad is 75. stents, bypass, prostate and lung cancer. Mother Additional Family Medical History / Comment(s): mom 1997 at age 59- brain aneurysm Medications and Allergies Home Medications Medication Instructions Recorded Confirmed Type Atorvastatin [Lipitor] 80 mg PO HS 06/25/13 03/22/23 History Metoprolol Tartrate [Lopressor] 50 mg PO BID 06/25/13 03/22/23 History Nitroglycerin Sl Tabs [Nitrostat] 0.4 mg SUBLINGUAL Q5M PRN 06/25/13 03/22/23 History Ranolazine [Ranexa] 1,000 mg PO BID 09/23/13 03/22/23 History Pantoprazole Sodium [Protonix] 40 mg PO DAILY 07/02/14 03/22/23 History Isosorbide Mononitrate ER [Imdur] 60 mg PO BID 10/13/15 03/22/23 History Aspirin [Adult Low Dose Aspirin EC] 81 mg PO HS 01/11/16 03/22/23 History amLODIPine [Norvasc] 2.5 mg PO DAILY 09/26/17 03/22/23 History metFORMIN HCL [Glucophage] 500 mg PO BID #0 11/27/17 03/22/23 Rx ALPRAZolam [Xanax] 0.25 mg PO DAILY PRN 04/11/20 03/22/23 History lisinopriL [Zestril] 20 mg PO DAILY 07/04/22 03/22/23 History Semaglutide [Ozempic] 1 mg SQ TH 01/18/23 03/22/23 History Semaglutide [Ozempic] 0.25 - 0.5 mg SQ DIRECTED PRN 03/22/23 03/22/23 History Allergies Allergy/AdvReac Type Severity Reaction Status Date / Time chocolate flavor Allergy Rash/Hives Verified 03/22/23 21:36 [place] And Derivatives Allergy Rash/Hives Verified 03/22/23 21:36 [[place]] Physical Exam Vitals: Vital Signs Temp Pulse Pulse Pulse Resp BP BP 03/23/23 08:00 77 70 16 03/23/23 07:20 98.4 F 70 16 124/84 03/23/23 01:05 97.7 F 77 16 03/22/23 23:42 98.8 F 84 18 138/98 03/22/23 18:10 86 17 143/99 03/22/23 17:33 89 03/22/23 17:32 90 18 139/102 03/22/23 17:00 97.9 F 98 20 145/97 BP Pulse Ox 03/23/23 08:00 03/23/23 07:20 97 03/23/23 01:05 141/95 98 03/22/23 23:42 97 03/22/23 18:10 97 03/22/23 17:33 03/22/23 17:32 98 03/22/23 17:00 97 Intake and Output 03/22/23 03/23/23 03/23/23 22:59 06:59 14:59 Other: Voiding Method Toilet Toilet # Voids 1 Weight 112.491 kg 112.491 kg Results CBC & Chem 7: 03/23/23 05:42 03/23/23 05:38 Labs: Abnormal Lab Results - Last 24 Hours (Table) 03/22/23 03/22/23 03/23/23 Range/Units 17:12 17:12 05:38 RBC (4.40-5.60) X 10*6/uL Hgb 12.9 L (13.0-17.5) gm/dL Hct (39.6-50.0) % MCH (27.0-32.0) pg RDW 16.2 H (11.5-15.5) % Neutrophils # 8.0 H (1.3-7.7) k/uL Chloride 111 H (98-107) mmol/L Carbon Dioxide 21 L (22-30) mmol/L Creatinine 1.26 H (0.66-1.25) mg/dL BUN/Creatinine Ratio 11.33 L (12.00-20.00) Ratio Glucose 117 H (74-99) mg/dL Calcium 8.3 L (8.7-10.3) mg/dL 03/23/23 Range/Units 05:42 RBC 4.01 L (4.40-5.60) X 10*6/uL Hgb 10.8 L (13.0-17.5) gm/dL Hct 33.7 L (39.6-50.0) % MCH 26.9 L (27.0-32.0) pg RDW 16.3 H (11.5-15.5) % Neutrophils # (1.3-7.7) k/uL Chloride (98-107) mmol/L Carbon Dioxide (22-30) mmol/L Creatinine (0.66-1.25) mg/dL BUN/Creatinine Ratio (12.00-20.00) Ratio Glucose (74-99) mg/dL Calcium (8.7-10.3) mg/dL Thrombosis Risk Factor Assmnt - Choose All That Apply Any of the Below Risk Factors Present?: Yes Each Factor Represents 1 point: Age 41-60 years, Obesity (BMI >25) Other Risk Factors: No Other congenital or acquired thrombophilia - If yes, enter type in comment: No Thrombosis Risk Factor Assessment Total Risk Factor Score: 2 Thrombosis Risk Factor Assessment Level: Low Risk
[2023-03-23] MEDS ORDERED: ATORVASTATIN 80 MG TAB PO SCH (21:00)
[2023-03-23] MEDS ORDERED: ASPIRIN 81 MG PO SCH (21:00)
== END 2023-03-23 15:58 | disposition home or self-care (01) ==
LOC: EC 16:47 → 6NMEDSUR 20:38
PROVIDERS: ADMIT Internal Medicine; ATTEND Internal Medicine
DX: R07.89 Other chest pain (principal); R11.2 Nausea with vomiting, unspecified; I25.10 Atherosclerotic heart disease of native coronary artery without angina pectoris; E78.5 Hyperlipidemia, unspecified; I25.2 Old myocardial infarction; E11.40 Type 2 diabetes mellitus with diabetic neuropathy, unspecified; J44.9 Chronic obstructive pulmonary disease, unspecified; I12.9 Hypertensive chronic kidney disease with stage 1 through stage 4 chronic kidney disease, or unspecified chronic kidney disease; N18.2 Chronic kidney disease, stage 2 (mild); E11.22 Type 2 diabetes mellitus with diabetic chronic kidney disease; F41.9 Anxiety disorder, unspecified; F32.A Depression, unspecified; I25.5 Ischemic cardiomyopathy; G47.33 Obstructive sleep apnea (adult) (pediatric); K64.9 Unspecified hemorrhoids; F10.10 Alcohol abuse, uncomplicated; K21.9 Gastro-esophageal reflux disease without esophagitis; F17.290 Nicotine dependence, other tobacco product, uncomplicated; E66.01 Morbid (severe) obesity due to excess calories; Z68.39 Body mass index [BMI] 39.0-39.9, adult; Z20.822 Contact with and (suspected) exposure to COVID-19; Z86.73 Personal history of transient ischemic attack (TIA), and cerebral infarction without residual deficits; Z95.5 Presence of coronary angioplasty implant and graft; Z79.84 Long term (current) use of oral hypoglycemic drugs; Z79.85 Long-term (current) use of injectable non-insulin antidiabetic drugs; Z79.82 Long term (current) use of aspirin; Z79.899 Other long term (current) drug therapy; Z82.49 Family history of ischemic heart disease and other diseases of the circulatory system
CPT/HCPCS: 96374; 96375; 99285; 36415; 93005; 83880; 80053; 80048; 83690; 83735; 84484; 85025 ×2; 85610; 85730; 87636; 71046; G0378 ×2; J1200; J2765; J2405

== ENCOUNTER → 2024-05-28 | Outpatient (CLI) | payer MEDICARE, OTHER ==
--- NOTE | 2024-05-28 14:07 | US ---
EXAMINATION TYPE: US scrotum with doppler. DATE OF EXAM: 05/28/2024 COMPARISON: 10/25/2019 CLINICAL INDICATION: Male, 58 years old with history of N40.2 Prostate Nodule; New lump on left testi yelena, old lump on right testicle x 10 years. TECHNIQUE: Grayscale, color Doppler and spectral Doppler imaging of the scrotum. FINDINGS: EXAM MEASUREMENTS: TESTICLES: Right Testicle: 4.6 x 2.6 x 3.1 cm Left Testicle: 4.4 x 2.3 x 3.1 cm EPIDIDYMIS HEAD: Right Epididymis: 1.5 x 0.8 x 1.0 cm Left Epididymis: 1.5 x 0.4 x 1.1 cm Doppler performed to assess for testicular vascularity; good bilateral color flow and spectral wavefo jewel are seen. There is no evidence of testicular torsion. Presence of hydroceles: No Presence of varicoceles: No Septated cystic structure redemonstrated lateral to right epididymal head = 2.8 x 1.9 x 3.3 cm Complex cystic area redemonstrated medial to left epididymal head = 1.5 x 1.4 x 1.8 cm Microcalcifications seen lateral right testicle. IMPRESSION: 1. No evidence for acute process. 2. Bilateral epididymal head cysts with septations. 3. No evidence for intratesticular mass. 4. Appropriate arterial and venous spectral waveforms to the testes. [facility], , 05/28/2024 2:05 PM
== END | disposition home or self-care (01) ==
LOC: RADUSWWP 13:08
PROVIDERS: ATTEND Internal Medicine
DX: N40.2 Nodular prostate without lower urinary tract symptoms (principal); N50.3 Cyst of epididymis
CPT/HCPCS: 76870; 93975